=== PATIENT | female | born 1950 | race Caucasian/White ===

== ENCOUNTER 2021-06-11 11:42 | Inpatient (IN) ==
--- NOTE | 2021-06-11 11:50 | Emergency Department Note ---
Impression & Plan CVA (cerebral vascular accident), Right arm weakness, Expressive aphasia ED Provider Note NAME: MOHINI AMEZCUA AGE: 71 SEX: F : 1950 ARRIVES VIA: Ambulance INFORMANT: Patient ED PROVIDER(S): Jarad Alvarez DO CHIEF COMPLAINT: Weakness of the right upper extremity HPI: Patient is a 71-year-old female who just had her right knee replaced yesterday who presents to the ER after going to bed last night around 2100. She had her right knee replaced by Dr. Gooden yesterday and underwent anesthesia. She was acting fine last night per family. She woke up this morning was having trouble getting her words out. She also notes weakness with her right upper e xtremity with grasp movement of the fingers in flexion extension. She denies any headache or change in vision. No chest pain or shortness of breath. No nausea vomiting or diarrhea. She notes she has trouble moving her right leg but it secondary to the surgery. ROS: See above HPI for pertinent positives & negatives. A total of 10 systems reviewed and were otherwise negative. PAST MEDICAL HISTORY:See Below PAST SURGICAL HISTORY:See Below FAMILY HISTORY:See Below SOCIAL HISTORY:See Below HOME MEDICATIONS:See Below ALLERGIES:See Below VITALS:See Below PHYSICAL EXAMINATION: GENERAL: Sitting up in bed, alert, well appearing, well nourished, no distress, non-toxic EYE EXAM: normal conjunctiva. PERRL and EOM's intact. OROPHARYNX: no exudate, no erythema, lips, buccal mucosa, and tongue normal and mucous membranes are moist NECK: supple, no nuchal rigidity, no adenopathy, non-tender LUNGS: Clear to auscultation. Normal chest wall mechanics HEART: no murmurs, S1 normal and S2 normal ABDOMEN: abdomen soft, non-tender, normo-active bowel sounds, no masses, no rebound or guarding. UPPER EXTREMITIES: upper extremities are grossly normal. LOWER EXTREMITIES: No pitting edema. NEURO EXAM: Normal sensorium, cranial nerves II-XII intact, normal speech, 4 L5 weakness with the right upper extremity with flexion extension as well as grasp. Left upper extremity is 5 out of 5., No weakness in left lower extremity. No significant movement of right lower extremity with recent surgery. Able to wiggle toes. + drift on the right. Difficult to perform [id number] with the right. Gross sensation intact. MEDICAL DECISION MAKING: Patient is a 71-year-old female that presents the ER status post right knee replacement yesterday. She went to bed normally last night and when she woke up this morning around 530 she was having expressive aphasia and trouble moving her right upper extremity. She was eventually brought into the ER for further evaluation. She has a right upper extremity deficit. Expressive aphasia has improved significantly. Stroke alert was not called as last known well was last night around 2100. IV was established blood work was obtained. Labs show mild leukocytosis 13. No significant anemia. INR was unremarkable. BMP with slig htly elevated chloride. LFTs bilirubin troponin was unremarkable. Covid was negative. CT angio of the head and neck as well as Noncon of the head were negative. Patient was updated bedside. Discussed with the hospitalist admitted for further work-up of her likely stroke. Triage Nursing notes reviewed. Limited review of prior medical records performed Vital Signs: reviewed and remarkable for no significant abnormalities Differential diagnosis: Differential Diagnosis includes but is not limited to ischemic Stroke, hemorrhagic stroke, bells palsy, mass, neoplasm, migraine headache, seizure, subarachnoid hemorrhage, TIA, and transient global amnesia. ER treatment provided: See below Diagnostics interpreted by me: ECG: Sinus rhythm rate of 66 Left bundle branch block T wave inversion in the high lateral leads QTC 469 Cardiac Monitoring: An order was placed for continuous cardiac monitoring. The monitor shows a rate of 62 with sinus rhythm. Laboratory studies: As stated above and show below. Imaging studies: CT angio of the head and neck were negative CT of the head was negative Consultation(s): Patient was evaluated by hospitalist for further evaluation Procedures: none Critical Care: None Past Med/Surg History Medical History Anxiety Asthma Stable- rare albuterol inhaler use Bipolar disorder Depression Diabetes mellitus, type 2 diet controlled GERD (gastroesophageal reflux disease) Well controlled and stable History of anesthesia reaction Pt had one episode after three hour surgery in 2017- patient reports she had trouble waking up after her surgery, states she became violent and upset, hallucinated while waking up. Began to calm down once she heard her daughter's voice. History of COVID-19 12/2020 - fully recovered Hypothyroidism IBS (irritable bowel syndrome) Intermittent flares - takes Amitriptyline and Protonix for GI pain control Left bundle branch block Chronic Osteopenia Spinal stenosis Syncope Patient reports she "passed out" vs fell asleep- for about 2 hours on 05/14/21 and was treated at [facility]. Pt states she was sitting in chair and the clock said 3pm- next time she looked it was 5pm. Dx with "altered consciousness"- negative work up- feels patient possibly fell asleep Surgical History History of arthroscopy bl knees History of cholecystectomy History of colonoscopy History of hernia surgery WITH MESH History of hysterectomy Status post gastric banding surgery AND REMOVAL (POST OP BLEEDING/HX BLOOD TRANSFUSION WITH REMOVAL) Family History Family/Other No problems noted. Mother Colon cancer Dementia Father , at age 79 from mesothelioma. Mesothelioma Sister No problems noted. Sister No problems noted. Son No problems noted. Daughter No problems noted. 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 Beliefs That Will Affect Care: None marital status: Current Living Situation: Alone Current Living Situation Comment: staying w/ son until apartment becomes available current occupational status: retired Feels Safe at Home: Yes Childhood Exposure to Second-Hand Smoke: Yes Dental Care, Regularly: Yes Physical Activity Frequency: Daily Seatbelt Use: always Sunscreen Use: No Assistive Devices: Denture - Upper, Glasses and Walker Allergies Allergies Allergy/AdvReac Type Severity Reaction Status Date / Time latex Allergy Unknown Rash Verified 06/11/21 13:48 Penicillins Allergy Unknown PT DOES Verified 06/11/21 13:48 NOT REMEMBER, REACTION WAS TEENAGER Sulfa (Sulfonamide Allergy Unknown RASH Verified 06/11/21 13:48 Antibiotics) morphine AdvReac Unknown Anxiety Verified 06/11/21 13:48 Home Meds Home Medications Medication Instructions Recorded Confirmed topiramate 100 mg tablet 100 mg PO BID 07/13/19 06/11/21 buspirone 5 mg tablet 5 mg PO BID tab 12/12/19 06/11/21 amitriptyline 25 mg tablet 25 mg PO HS 05/14/21 06/11/21 ibuprofen 200 mg tablet (Advil) 200 mg PO Q6H PRN 06/11/21 06/11/21 Previous Rx's Medication Instructions Recorded pantoprazole 40 mg tablet,delayed 40 mg PO QAM #90 tab 02/01/21 release levothyroxine 125 mcg tablet 125 mcg PO QAM #90 tab 03/18/21 tramadol 50 mg tablet 50 mg PO Q8H PRN #30 tab 04/18/21 blood sugar diagnostic ([employer] #100 ea 05/18/21 Ultra Test) blood-glucose meter ([employer] #1 ea 05/18/21 Ultra2 Meter) lancets 33 gauge ([employer] Delica #100 ea 05/18/21 Lancets) ondansetron HCl 4 mg tablet 4 mg PO Q8H PRN #10 tab 06/09/21 (Zofran) oxycodone-acetaminophen 5 mg-325 1 tab PO Q6H PRN #30 tab 06/09/21 mg tablet (Percocet) Results & Data (ED) Vital Signs Vital Signs - 24 hr 06/11/21 12:07 06/11/21 12:10 Temperature 36.8 C Temperature Source Oral Pulse Rate 67 70 Pulse Rate from SpO2 Sensor 70 Pulse Rhythm Regular Pulse Strength Normal Respiratory Rate 18 13 Respiratory Effort / Characteristics Non-Labored Spontaneous Respiratory Depth Normal Blood Pressure 130/78 130/78 Blood Pressure Mean 95 95 Blood Pressure Position Lying Pulse Oximetry 98 99 Oxygen Delivery Method Room Air Sepsis Recent Fever Within 48 Hours No Sepsis New/Unexplained Change in Mental Status N/A Sepsis Action Taken by Nursing No Action Required Laboratory Data Result diagrams: 06/11/21 11:25 06/11/21 11:25 Lab Results 06/11/21 06/11/21 06/11/21 Range/Units 11:25 11:25 11:25 WBC 13.38 H (4.8-10.8) K/uL RBC 4.41 (4.2-5.4) M/uL Hgb 13.5 (12.0-16.0) g/dL Hct 40.8 (37-47) % MCV 92.5 (80-100) fL MCH 30.6 (25-34) pg MCHC 33.1 (32-36) g/dL RDW Std Deviation 49.7 H (36.4-46.3) fL RDW Coeff of Ese 14.7 H (11.5-14.5) % Plt Count 214 (130-400) K/uL MPV 10.8 H (7.4-10.4) fL Immature Gran % (Auto) 0.4 % Neut % (Auto) 75.7 % Lymph % (Auto) 12.0 % [place] % (Auto) 11.3 % Eos % (Auto) 0.5 % Baso % (Auto) 0.1 % Neut # (Auto) 10.14 H (1.4-6.5) K/uL Lymph # (Auto) 1.60 (1.2-3.4) K/uL [place] # (Auto) 1.51 H (0.11-0.59) K/uL Eos # (Auto) 0.07 (0-0.5) K/uL Baso # (Auto) 0.01 (0-0.2) K/uL Immature Gran # (Auto) 0.05 H (0.00-0.02) K/uL PT 9.9 (9.0-12.0) Seconds INR 1.0 (0.9-1.1) APTT 25.4 (21.0-31.0) Seconds PTT Ratio 1.0 Sodium 142 (136-145) mmol/L Potassium 3.7 (3.5-5.1) mmol/L Chloride 111 H (98-107) mmol/L Carbon Dioxide 25 (21-32) mmol/L Anion Gap 6.0 (3-11) BUN 31 H (7-18) mg/dl Creatinine 1.21 H (0.6-1.2) mg/dl Est Cr Clr Drug Dosing 43.4 ml/min Est GFR ( Amer) 51.8 ml/min Est GFR (Non-Af Amer) 44.7 ml/min BUN/Creatinine Ratio 25.7 H (10-20) Glucose 86 (70-99) mg/dl Calcium 9.0 (8.5-10.1) mg/dl Magnesium 2.6 H (1.8-2.4) mg/dl Total Bilirubin 0.5 (0.2-1) mg/dl AST 21 (15-37) U/L ALT 24 (12-78) U/L Alkaline Phosphatase 76 (45-117) U/L Troponin I < 0.015 (0-0.045) ng/ml Total Protein 7.1 (6.4-8.2) gm/dl Albumin 3.2 L (3.4-5.0) gm/dl Globulin 3.9 (2.5-4.0) gm/dl Albumin/Globulin Ratio 0.8 L (0.9-2) COVID-19 Eval Order SARS-CoV-2 (PCR) (Negative) Blood Type Antibody Screen 06/11/21 06/11/21 06/11/21 Range/Units 12:17 13:20 13:20 WBC (4.8-10.8) K/uL RBC (4.2-5.4) M/uL Hgb (12.0-16.0) g/dL Hct (37-47) % MCV (80-100) fL MCH (25-34) pg MCHC (32-36) g/dL RDW Std Deviation (36.4-46.3) fL RDW Coeff of Ese (11.5-14.5) % Plt Count (130-400) K/uL MPV (7.4-10.4) fL Immature Gran % (Auto) % Neut % (Auto) % Lymph % (Auto) % [place] % (Auto) % Eos % (Auto) % Baso % (Auto) % Neut # (Auto) (1.4-6.5) K/uL Lymph # (Auto) (1.2-3.4) K/uL [place] # (Auto) (0.11-0.59) K/uL Eos # (Auto) (0-0.5) K/uL Baso # (Auto) (0-0.2) K/uL Immature Gran # (Auto) (0.00-0.02) K/uL PT (9.0-12.0) Seconds INR (0.9-1.1) APTT (21.0-31.0) Seconds PTT Ratio Sodium (136-145) mmol/L Potassium (3.5-5.1) mmol/L Chloride (98-107) mmol/L Carbon Dioxide (21-32) mmol/L Anion Gap (3-11) BUN (7-18) mg/dl Creatinine (0.6-1.2) mg/dl Est Cr Clr Drug Dosing ml/min Est GFR ( Amer) ml/min Est GFR (Non-Af Amer) ml/min BUN/Creatinine Ratio (10-20) Glucose (70-99) mg/dl Calcium (8.5-10.1) mg/dl Magnesium (1.8-2.4) mg/dl Total Bilirubin (0.2-1) mg/dl AST (15-37) U/L ALT (12-78) U/L Alkaline Phosphatase (45-117) U/L Troponin I (0-0.045) ng/ml Total Protein (6.4-8.2) gm/dl Albumin (3.4-5.0) gm/dl Globulin (2.5-4.0) gm/dl Albumin/Globulin Ratio (0.9-2) COVID-19 Eval Order Covid19 at [facility] SARS-CoV-2 (PCR) NEGATIVE (Negative) Blood Type O Positive Antibody Screen NEGATIVE Administered Medications Lactated Ringer's (Lr) 1,000 mls @ 80 mls/hr IV .[id number] IONA Stop: 06/12/21 15:14 Last Admin: 06/11/21 16:58 Dose: 80 mls/hr Documented by: [id number] Infusion: 06/11/21 16:58 Dose: 80 mls/hr Documented by: [id number] Admin: 06/11/21 16:56 Dose: 80 mls/hr Documented by: [id number] Discontinued Medications Ioversol (Optiray 320 125ml) 120 ml IV ONCE ONE Stop: 06/11/21 11:53 Last Admin: 06/11/21 11:52 Dose: 120 ml Documented by: [id number] Imaging Data Radiologist's Impression: Chest X-Ray 06/11/21 11:44 SINGLE VIEW CHEST CLINICAL HISTORY: Strokelike symptoms. FINDINGS: An AP, portable, upright chest radiograph is compared to study dated 05/18/2021 and correlated with chest CT dated 06/09/2021. The examination is degraded by portable technique and patient rotation. The heart is enlarged. The pulmonary vasculature is noncongested. Findings of chronic interstitial lung disease are similar to the recent chest CT. There is no evidence of superimposed airspace consolidation or large pleural effusion. No pneumothorax is seen. The skeletal structures are osteopenic. The bony thorax is grossly intact. Cholecystectomy clips are noted in the right upper quadrant. IMPRESSION: 1. No acute cardiopulmonary abnormality. 2. Cardiomegaly with changes of chronic interstitial lung disease as above. ACT 112: Negative or not required by law. Electronically signed by: Jose Maria Shaw M.D. 06/11/2021 12:[address] 06/11/21 11:[address] OF THE BRAIN; CT ANGIOGRAM OF THE BRAIN; CT ANGIOGRAM OF THE NECK CLINICAL HISTORY: Strokelike symptoms. COMPARISON STUDY: CT of the brain dated 05/14/2021. TECHNIQUE: Unenhanced axial CT scan of the brain is performed. Subsequently, following the IV administration of 120 of Optiray 320, CT angiogram of the head and neck was performed from the aortic arch to the vertex. Images are reviewed in the axial, sagittal, and coronal planes. 3-D MIPS images are created and assessed. IV contrast was administered without complication. All measurements were calculated based on NASCET criteria. A dose lowering technique was utilized adhering to the principles of ALARA. CT DOSE: 1166.81 mGy.cm FINDINGS: Brain parenchyma: There is age-related involutional change noting mild subcortical and periventricular microangiopathic disease. There is no hemorrhage, mass effect, or evidence of acute territorial ischemia by CT criteria. There is no evidence of enhancing mass lesion on the angiogram phase images. The ventricles, sulci, and cisterns are prominent secondary to involutional change. Cabezas-white matter differentiation is preserved. No extra- axial fluid collection is seen. Thoracic aorta: There is atherosclerotic calcification of the thoracic aorta. Visualized portions of the thoracic aorta are normal in caliber. The aortic arch demonstrates standard 3-vessel anatomy. Right carotid arterial system: The right common carotid artery is widely patent, as are the right internal and external carotid arteries. Calcified plaque is noted in the carotid bulb. Left carotid arterial system: The left common carotid artery is widely patent, as are the left internal and external carotid arteries. Calcified plaque is noted in the carotid bulb. Vertebral arteries: The vertebral arteries are widely patent bilaterally noting a right-sided dominance. Subclavian arteries: Widely patent bilaterally. Intracranial vasculature: There is mild atherosclerotic calcification of the cavernous carotid arteries. The internal carotid arteries are patent at the skull base, as are the anterior and middle cerebral arteries bilaterally. The vertebrobasilar system and posterior cerebral arteries are widely patent. The right vertebral artery is dominant. The basilar artery is diminutive and there are large bilateral posterior communicating arteries. There is origin of the left posterior cerebral artery. There is no aneurysm, high-grade stenosis, or focal vessel cut off seen throughout the intracranial circulation. Jugular veins: Patent bilaterally. Dural sinuses: Patent. Lung apices: Partially visualized upper lobe lung parenchyma appears clear. Soft tissues: The visualized pharyngeal soft tissues are normal in appearance no ting angiographic phase technique. The oropharyngeal airway appears widely patent. The thyroid gland is atrophic and heterogeneous. The salivary glands are normal in appearance. No cervical lymphadenopathy is seen. Skeletal structures: The skeletal structures are osteopenic. The calvarium appears intact. The cervical spine is maintained noting multilevel spondylosis. No lytic or blastic lesion is seen. Orbits: The bony orbits are intact. Orbital contents are normal as visualized. Sinuses and mastoids: The paranasal sinuses are clear. The mastoid air cells are well pneumatized. IMPRESSION: 1. There is no hemorrhage, mass effect, or evidence of acute territorial ischemia by CT criteria. 2. Unremarkable CT angiogram of the brain. 3. Unremarkable CT angiogram of the neck. ACT 112: Negative or not required by law. Electronically signed by: Jose Maria Shaw M.D. 06/11/2021 12:19 PM Head CTA 06/11/21 11:[address] OF THE BRAIN; CT ANGIOGRAM OF THE BRAIN; CT ANGIOGRAM OF THE NECK CLINICAL HISTORY: Strokelike symptoms. COMPARISON STUDY: CT of the brain dated 05/14/2021. TECHNIQUE: Unenhanced axial CT scan of the brain is performed. Subsequently, following the IV administration of 120 of Optiray 320, CT angiogram of the head and neck was performed from the aortic arch to the vertex. Images are reviewed in the axial, sagittal, and coronal planes. 3-D MIPS images are created and assessed. IV contrast was administered without complication. All measurements were calculated based on NASCET criteria. A dose lowering technique was utilized adhering to the principles of ALARA. CT DOSE: 1166.81 mGy.cm FINDINGS: Brain parenchyma: There is age-related involutional change noting mild subcortical and periventricular microangiopathic disease. There is no hemorrhage , mass effect, or evidence of acute territorial ischemia by CT criteria. There is no evidence of enhancing mass lesion on the angiogram phase images. The ventricles, sulci, and cisterns are prominent secondary to involutional change. Cabezas-white matter differentiation is preserved. No extra-axial fluid collection is seen. Thoracic aorta: There is atherosclerotic calcification of the thoracic aorta. Visualized portions of the thoracic aorta are normal in caliber. The aortic arch demonstrates standard 3-vessel anatomy. Right carotid arterial system: The right common carotid artery is widely patent, as are the right internal and external carotid arteries. Calcified plaque is noted in the carotid bulb. Left carotid arterial system: The left common carotid artery is widely patent, as are the left internal and external carotid arteries. Calcified plaque is noted in the carotid bulb. Vertebral arteries: The vertebral arteries are widely patent bilaterally noting a right-sided dominance. Subclavian arteries: Widely patent bilaterally. Intracranial vasculature: There is mild atherosclerotic calcification of the cavernous carotid arteries. The internal carotid arteries are patent at the skull base, as are the anterior and middle cerebral arteries bilaterally. The vertebrobasilar system and posterior cerebral arteries are widely patent. The right vertebral artery is dominant. The basilar artery is diminutive and there are large bilateral posterior communicating arteries. There is origin of the left posterior cerebral artery. There is no aneurysm, high-grade stenosis, or focal vessel cut off seen throughout the intracranial circulation. Jugular veins: Patent bilaterally. Dural sinuses: Patent. Lung apices: Partially visualized upper lobe lung parenchyma appears clear. Soft tissues: The visualized pharyngeal soft tissues are normal in appearance noting angiographic phase technique. The oropharyngeal airway appears widely patent. The thyroid gland is atrophic and heterogeneous. The salivary glands are normal in appearance. No cervical lymphadenopathy is seen. Skeletal structures: The skeletal structures are osteopenic. The calvarium appears intact. The cervical spine is maintained noting multilevel spondylosis. No lytic or blastic lesion is seen. Orbits: The bony orbits are intact. Orbital contents are normal as visualized. Sinuses and mastoids: The paranasal sinuses are clear. The mastoid air cells are well pneumatized. IMPRESSION: 1. There is no hemorrhage, mass effect, or evidence of acute territorial ischemia by CT criteria. 2. Unremarkable CT angiogram of the brain. 3. Unremarkable CT angiogram of the neck. ACT 112: Negative or not required by law. Electronically signed by: Jose Maria Shaw M.D. 06/11/2021 12:19 PM Neck CTA 06/11/21 11:[address] OF THE BRAIN; CT ANGIOGRAM OF THE BRAIN; CT ANGIOGRAM OF THE NECK CLINICAL HISTORY: Strokelike symptoms. COMPARISON STUDY: CT of the brain dated 05/14/2021. TECHNIQUE: Unenhanced axial CT scan of the brain is performed. Subsequently, following the IV administration of 120 of Optiray 320, CT angiogram of the head and neck was performed from the aortic arch to the vertex. Images are reviewed in the axial, sagittal, and coronal planes. 3-D MIPS images are created and assessed. IV contrast was administered without complication. All measurements were calculated based on NASCET criteria. A dose lowering technique was utilized adhering to the principles of ALARA. CT DOSE: 1166.81 mGy.cm FINDINGS: Brain parenchyma: There is age-related involutional change noting mild subcortical and periventricular microangiopathic disease. There is no hemorrhage, mass effect, or evidence of acute territorial ischemia by CT crite hector. There is no evidence of enhancing mass lesion on the angiogram phase images. The ventricles, sulci, and cisterns are prominent secondary to involutional change. Cabezas-white matter differentiation is preserved. No extra- axial fluid collection is seen. Thoracic aorta: There is atherosclerotic calcification of the thoracic aorta. Visualized portions of the thoracic aorta are normal in caliber. The aortic arch demonstrates standard 3-vessel anatomy. Right carotid arterial system: The right common carotid artery is widely patent, as are the right internal and external carotid arteries. Calcified plaque is noted in the carotid bulb. Left carotid arterial system: The left common carotid artery is widely patent, as are the left internal and external carotid arteries. Calcified plaque is noted in the carotid bulb. Vertebral arteries: The vertebral arteries are widely patent bilaterally noting a right-sided dominance. Subclavian arteries: Widely patent bilaterally. Intracranial vasculature: There is mild atherosclerotic calcification of the cavernous carotid arteries. The internal carotid arteries are patent at the skull base, as are the anterior and middle cerebral arteries bilaterally. The vertebrobasilar system and posterior cerebral arteries are widely patent. The right vertebral artery is dominant. The basilar artery is diminutive and there are large bilateral posterior communicating arteries. There is origin of the left posterior cerebral artery. There is no aneurysm, high-grade stenosis, or focal vessel cut off seen throughout the intracranial circulation. Jugular veins: Patent bilaterally. Dural sinuses: Patent. Lung apices: Partially visualized upper lobe lung parenchyma appears clear. Soft tissues: The visualized pharyngeal soft tissues are normal in appearance noting angiographic phase technique. The oropharyngeal airway appears widely patent. The thyroid gland is atrophic and heterogeneous. The salivary glands are normal in appearance. No cervical lymphadenopathy is seen. Skeletal structures: The skeletal structures are osteopenic. The calvarium appears intact. The cervical spine is maintained noting multilevel spondylosis. No lytic or blastic lesion is seen. Orbits: The bony orbits are intact. Orbital contents are normal as visualized. Sinuses and mastoids: The paranasal sinuses are clear. The mastoid air cells are well pneumatized. IMPRESSION: 1. There is no hemorrhage, mass effect, or evidence of acute territorial ischemia by CT criteria. 2. Unremarkable CT angiogram of the brain. 3. Unremarkable CT angiogram of the neck. ACT 112: Negative or not required by law. Electronically signed by: Jose Maria Shaw M.D. 06/11/2021 12:19 PM Discharge Plan Visit Data Chief Complaint: Stroke/CVA Symptoms ED Provider: Jarad Alvarez Discharge Problem: CVA (cerebral vascular accident), Right arm weakness, Expressive aphasia Patient Disposition: Home - Self-Care Discharge Instructions Interventions: ED Discharge Assessment Last Done: 06/11/21 15:22 Discharge Problem: CVA (cerebral vascular accident) Qualifiers: CVA mechanism: unspecified Qualified Code(s): I63.9 - Cerebral infarction, unspecified
[2021-06-11] MEDS ORDERED: OPTIRAY 320 125ml IV ONE (11:52)
[2021-06-11 12:06] LABS: Basophils # (auto) 0.01 K/uL (0-0.2); Basophils % (auto) 0.1 %; Eosinophils # (auto) 0.07 K/uL (0-0.5); Eosinophils % (auto) 0.5 %; Hematocrit (blood only) 40.8 % (37-47); Hemoglobin 13.5 g/dL (12.0-16.0); Immature Granulocytes # (auto) 0.05 K/uL (0.00-0.02); Immature Granulocytes % (auto) 0.4 %; Mean Corpuscular Hemoglobin 30.6 pg (25-34); Mean Corpuscular Hgb Conc 33.1 g/dL (32-36); Mean Corpuscular Volume 92.5 fL (80-100); Mean Platelet Volume 10.8 fL (7.4-10.4); Monocytes # (auto) 1.51 K/uL (0.11-0.59); Monocytes % (auto) 11.3 %; Neutrophils # (auto) 10.14 K/uL (1.4-6.5); Neutrophils % (auto) 75.7 %; Platelet Count 214 K/uL (130-400); RDW Coefficient of Variation 14.7 % (11.5-14.5); RDW Standard Deviation 49.7 fL (36.4-46.3); Red Blood Count 4.41 M/uL (4.2-5.4); White Blood Count 13.38 K/uL (4.8-10.8)
[2021-06-11 12:17] LABS: Partial Thromboplastin Time 25.4 Seconds (21.0-31.0); Prothrombin Time 9.9 Seconds (9.0-12.0)
--- NOTE | 2021-06-11 12:21 | CT Scan Report ---
UNENHANCED CT OF THE BRAIN; CT ANGIOGRAM OF THE BRAIN; CT ANGIOGRAM OF THE NECK CLINICAL HISTORY: Strokelike symptoms. COMPARISON STUDY: CT of the brain dated 05/14/2021. TECHNIQUE: Unenhanced axial CT scan of the brain is performed. Subsequently, following the IV adminis tration of 120 of [address] 320, CT angiogram of the head and neck was performed from the aortic arch t o the vertex. Images are reviewed in the axial, sagittal, and coronal planes. 3-D MIPS images are cre ated and assessed. IV contrast was administered without complication. All measurements were calculate d based on NASCET criteria. A dose lowering technique was utilized adhering to the principles of ALA RA. CT DOSE: 1166.81 mGy.cm FINDINGS: Brain parenchyma: There is age-related involutional change noting mild subcortical and periventricula r microangiopathic disease. There is no hemorrhage, mass effect, or evidence of acute territorial isc hemia by CT criteria. There is no evidence of enhancing mass lesion on the angiogram phase images. Th e ventricles, sulci, and cisterns are prominent secondary to involutional change. Cabezas-white matter d ifferentiation is preserved. No extra-axial fluid collection is seen. Thoracic aorta: There is atherosclerotic calcification of the thoracic aorta. Visualized portions of the thoracic aorta are normal in caliber. The aortic arch demonstrates standard 3-vessel anatomy. Right carotid arterial system: The right common carotid artery is widely patent, as are the right int ernal and external carotid arteries. Calcified plaque is noted in the carotid bulb. Left carotid arterial system: The left common carotid artery is widely patent, as are the left internal combustion engine assembler al and external carotid arteries. Calcified plaque is noted in the carotid bulb. Vertebral arteries: The vertebral arteries are widely patent bilaterally noting a right-sided dominan ce. Subclavian arteries: Widely patent bilaterally. Intracranial vasculature: There is mild atherosclerotic calcification of the cavernous carotid arteri es. The internal carotid arteries are patent at the skull base, as are the anterior and middle cerebr al arteries bilaterally. The vertebrobasilar system and posterior cerebral arteries are widely patent . The right vertebral artery is dominant. The basilar artery is diminutive and there are large bilate ral posterior communicating arteries. There is origin of the left posterior cerebral artery. Th ere is no aneurysm, high-grade stenosis, or focal vessel cut off seen throughout the intracranial cir culation. Jugular veins: Patent bilaterally. Dural sinuses: Patent. Lung apices: Partially visualized upper lobe lung parenchyma appears clear. Soft tissues: The visualized pharyngeal soft tissues are normal in appearance noting angiographic pha se technique. The oropharyngeal airway appears widely patent. The thyroid gland is atrophic and heter ogeneous. The salivary glands are normal in appearance. No cervical lymphadenopathy is seen. Skeletal structures: The skeletal structures are osteopenic. The calvarium appears intact. The cervic al spine is maintained noting multilevel spondylosis. No lytic or blastic lesion is seen. Orbits: The bony orbits are intact. Orbital contents are normal as visualized. Sinuses and mastoids: The paranasal sinuses are clear. The mastoid air cells are well pneumatized. IMPRESSION: 1. There is no hemorrhage, mass effect, or evidence of acute territorial ischemia by CT criteria. 2. Unremarkable CT angiogram of the brain. 3. Unremarkable CT angiogram of the neck. ACT 112: Negative or not required by law. Electronically signed by: Jose Maria Shaw M.D. 06/11/2021 12:19 PM
[2021-06-11 12:29] LABS: Alanine Aminotransferase 24 U/L (12-78); Albumin Level 3.2 gm/dl (3.4-5.0); Aspartate Aminotransferase 21 U/L (15-37); BUN Creatinine Ratio 25.7 (10-20); Blood Urea Nitrogen 31 mg/dl (7-18); Carbon Dioxide 25 mmol/L (21-32); Chloride 111 mmol/L (98-107); Creatinine Clr Calc Pharmacy 43.4 ml/min; Est GFR (African American) 51.8 ml/min; Est GFR (Non-African American) 44.7 ml/min; Glucose 86 mg/dl (70-99); Magnesium 2.6 mg/dl (1.8-2.4); Potassium 3.7 mmol/L (3.5-5.1); Sodium 142 mmol/L (136-145)
[2021-06-11 12:34] LABS: Albumin Globulin Ratio 0.8 (0.9-2); Alkaline Phosphatase 76 U/L (45-117); Bilirubin,Total 0.5 mg/dl (0.2-1); Globulin 3.9 gm/dl (2.5-4.0); Total Protein 7.1 gm/dl (6.4-8.2); Troponin I < 0.015 ng/ml (0-0.045)
--- NOTE | 2021-06-11 12:53 | XRay Report ---
SINGLE VIEW CHEST CLINICAL HISTORY: Strokelike symptoms. FINDINGS: An AP, portable, upright chest radiograph is compared to study dated 05/18/2021 and correlate d with chest CT dated 06/09/2021. The examination is degraded by portable technique and patient rotati on. The heart is enlarged. The pulmonary vasculature is noncongested. Findings of chronic interstitia l lung disease are similar to the recent chest CT. There is no evidence of superimposed airspace cons olidation or large pleural effusion. No pneumothorax is seen. The skeletal structures are osteopenic. The bony thorax is grossly intact. Cholecystectomy clips are noted in the right upper quadrant. IMPRESSION: 1. No acute cardiopulmonary abnormality. 2. Cardiomegaly with changes of chronic interstitial lung disease as above. ACT 112: Negative or not required by law. Electronically signed by: Jose Maria Shaw M.D. 06/11/2021 12:52 PM
--- NOTE | 2021-06-11 14:01 | History & Physical Report ---
Date of Service June 11, 2021 Assessment & Plan (1) Status post right knee replacement: Plan: 71 y/o F Hx DM II, bipolar, hypothyroidism, ILD, osteoarthritis. The pt had her R knee replaced one day prior. She was feeling well and discharged [facility] after surgery for home rehab. She woke up this AM with weakness in her R arm and likely her leg as well. She states she was able to ambulate the prior day and that this was more difficult today. Imaging including a CT/CTA head/neck proved negative for acute abnormalities. Labs are unremarkable. Complicating the above, she recently received steroid injections into he shoulders BL. Her distal strength is maintained in the upper extrem and we cannot fully assess lower extremity strength as she is limited in her ROM and force by pain. Additionally, she has documented lumbar stenosis which may affect her LE strength. 1) Weakness in her upper and lower ext on R - exam may be most consistent with a CVA, although as above, there are multiple confounding factors. She is admitted with a CVA protocol. We will obtain an MRI and a neuro consult. She is receiving PT/OT. 2) DM II - sliding scale 3) Hypothyroid - con Synthroid 4) Bipolar - cont amitriptyline, buspirone. topiramate Full code - Lovenox prophylaxis Total time for this admit including review of labs, meds, imaging, records - discussion with pt and ER attending - 40 min (2) Shortness of breath: (3) CVA (cerebral vascular accident): (4) Diabetes mellitus, type 2: History of Present Illness Chief Complaint: Weakness in R arm Primary Care Provider: Sherman Mayorga MD 71 y/o F Hx DM II, bipolar, hypothyroidism, ILD, osteoarthritis. The pt had her R knee replaced one day prior. She was feeling well and discharged [facility] after surgery for home rehab. She woke up this AM with weakness in her R arm and likely her leg as well. She states she was able to ambulate the prior day and that this was more difficult today. Imaging including a CT/CTA head/neck proved negative for acute abnormalities. Labs are unremarkable. Complicating the above, she recently received steroid injections into he shoulders BL. Her distal strength is maintained in the upper extrem and we cannot fully assess lower extremity strength as she is limited in her ROM and force by pain. Additionally, she has documented lumbar stenosis which may affect her LE strength. PMH: 1) Osteoarthritis 2) Bipolar 3) Obese 4) Hypothyroid 5) DM II 6) Exertional dyspnea - recent diagnosis of ILD - possibly due to asbestosis. The diagnosis is in progress. 7) GERD 8) LBBB - preop cardio exam did not demonstrate evidence of ischemia 9) Lumbar stenosis Surgical: 1) Gastric band - this was complicated by erosion and required surgical removal and then additional surgery for debris removal. 2) R TKA 06/10/21 3) Cholecystectomy 4) Hysterectomy Social: Does not drink or smoke Family: Mother is alive age 99 Father age 76 mesothelioma Allergies Allergy/AdvReac Type Severity Reaction Status Date / Time latex Allergy Unknown Rash Verified 06/11/21 13:48 Penicillins Allergy Unknown PT DOES Verified 06/11/21 13:48 NOT REMEMBER, REACTION WAS TEENAGER Sulfa (Sulfonamide Allergy Unknown RASH Verified 06/11/21 13:48 Antibiotics) morphine AdvReac Unknown Anxiety Verified 06/11/21 13:48 Home Medications Medication Instructions Recorded Confirmed Type topiramate 100 mg tablet 100 mg PO BID 07/13/19 06/11/21 History buspirone 5 mg tablet 5 mg PO BID tab 12/12/19 06/11/21 History pantoprazole 40 mg tablet,delayed 40 mg PO QAM #90 tab 02/01/21 06/11/21 Rx release levothyroxine 125 mcg tablet 125 mcg PO QAM #90 tab 03/18/21 06/11/21 Rx tramadol 50 mg tablet 50 mg PO Q8H PRN #30 tab 04/18/21 06/11/21 Rx amitriptyline 25 mg tablet 25 mg PO HS 05/14/21 06/11/21 History blood sugar diagnostic ([employer] #100 ea 05/18/21 06/03/21 Rx Ultra Test) blood-glucose meter ([employer] #1 ea 05/18/21 06/03/21 Rx Ultra2 Meter) lancets 33 gauge ([employer] #100 ea 05/18/21 06/03/21 Rx Lancets) ondansetron HCl 4 mg tablet 4 mg PO Q8H PRN #10 tab 06/09/21 06/11/21 Rx (Zofran) oxycodone-acetaminophen 5 mg-325 1 tab PO Q6H PRN #30 tab 06/09/21 06/11/21 Rx mg tablet (Percocet) ibuprofen 200 mg tablet (Advil) 200 mg PO Q6H PRN 06/11/21 06/11/21 History Past Med/Surg History Medical History Anxiety Asthma Stable- rare albuterol inhaler use Bipolar disorder Depression Diabetes mellitus, type 2 diet controlled GERD (gastroesophageal reflux disease) Well controlled and stable History of anesthesia reaction Pt had one episode after three hour surgery in 2017- patient reports she had trouble waking up after her surgery, states she became violent and upset, hallucinated while waking up. Began to calm down once she heard her daughter's voice. History of COVID-19 12/2020 - fully recovered Hypothyroidism IBS (irritable bowel syndrome) Intermittent flares - takes Amitriptyline and Protonix for GI pain control Left bundle branch block Chronic Osteopenia Spinal stenosis Syncope Patient reports she "passed out" vs fell asleep- for about 2 hours on 05/14/21 and was treated at [facility]. Pt states she was sitting in chair an d the clock said 3pm- next time she looked it was 5pm. Dx with "altered consciousness"- negative work up- feels patient possibly fell asleep Surgical History History of arthroscopy bl knees History of cholecystectomy History of colonoscopy History of hernia surgery WITH MESH History of hysterectomy Status post gastric banding surgery AND REMOVAL (POST OP BLEEDING/HX BLOOD TRANSFUSION WITH REMOVAL) Family History Family/Other No problems noted. Mother Colon cancer Dementia Father , at age 79 from mesothelioma. Mesothelioma Sister No problems noted. Sister No problems noted. Son No problems noted. Daughter No problems noted. Other Family history of diabetes mellitus in father Denies family history of Ovarian cancer Prostate cancer Myocardial infarction Breast cancer Social History Smoking Status: Never smoker packs per day: 1; Years Smoked: 8; Number of Years Since Quit: 20; Second Hand Exposure: No; Hx Alcohol Use: Yes Alcohol type: wine Hx Substance Use: No Preferred Language: [place] Communication Ability: Effective Sales Utility Representative Required: No Beliefs That Will Affect Care: None marital status: Current Living Situation: Alone Current Living Situation Comment: staying w/ son until apartment becomes available current occupational status: retired Feels Safe at Home: Yes Childhood Exposure to Second-Hand Smoke: Yes Dental Care, Regularly: Yes Physical Activity Frequency: Daily Seatbelt Use: always Sunscreen Use: No Assistive Devices: Glasses Review of Systems Review of Systems: Gen: Denies fevers, night sweats, rigors, fatigue, malaise, weight loss/gain ENT: Denies congestion, throat pain, hearing loss Eyes: Denies acute visual changes CV: Denies CP, palpitations Pulmonary: Denies SOB, cough, wheezing GI: Denies N/V, diarrhea, constipation Neuro: There is weakness in the R arm and hand Musculoskeletal: There is pain in the R knee post-p - mostly with movement Endocrine: Denies polydipsia, polyuria Skin: Denies acute rashes or ulcers Physical Exam Physical Exam: General: AAO x 3, no distress ENT: No erythema or exudates, no thrush Eyes: TEE, EOMI Head and neck: Normocephalic, atraumatic, No JVD, neck is supple. Chest/heart: Nontender, S1,2, RRR, no murmurs, no gallops Lungs: CTAB, no wheezing or crackles Abdomen: Nontender, nondistended, BS+ Neuro: AAO x 3, speech is clear. There is a clear drift on the RUE. Visual Merchandising Specialist strength remains keny than the L. Coordination is impaired. The R leg is difficult to test as she has considerable pain when attempimg a leg lift. There is subtle dista numbness and she is weaker distally than on the L. Musculoskeletal: No joint inflammation, muscle tenderness, FROM Skin: No acute rashes or ulcers Extremities: No clubbing, cyanosis, edema Results & Data Results & Data ([facility]) Vital Signs (Past 12 Hours) Vital Signs Temp Pulse Resp BP Pulse Ox 06/11/21 12:07 98.2 F 67 18 130/78 98 Code Status & VTE Plan VTE Prophylaxis Plan VTE Prophylaxis will be ordered: Yes PG Care Time/CCT Total # of Minutes Spent Total Time Spent with Patient: Total time spent is greater than 50% in coordination of care (as documented) at patient's floor/unit and/or counseling patient: Coding Level of Care Code INT OBSERVATION CARE 70M LVL 3 Diagnoses Status post right knee replacement Z96.651 Shortness of breath R06.02 CVA (cerebral vascular accident) I63.9 Diabetes mellitus, type 2 E11.9
[2021-06-11] MEDS ORDERED: GLUCAGON FOR INJ 1 MG VIAL SQ PRN (16:33)
[2021-06-11] MEDS ORDERED: ALBUTEROL HFA 8 GM INHALER INH PRN (16:33)
[2021-06-11] MEDS ORDERED: GLUCOSE 10 TABS/TUBE PO PRN (16:33)
[2021-06-11] MEDS ORDERED: DEXTROSE 50% 50 ML SYRINGE IV PRN (16:33)
[2021-06-11] MEDS ORDERED: GLUCOSE 40% GEL 15 GM TUBE PO PRN (16:33)
[2021-06-11] MEDS ORDERED: PHARMACIST DISCHARGE MED REC CONSULT PRN (16:33)
[2021-06-11] MEDS ORDERED: CARBOHYDRATES FOR HYPOGLYCEMIA PO PRN (16:33)
[2021-06-11] MEDS: LACTATED RINGER'S 1,000 ML IV SCH ×2 (16:56→16:58)
--- NOTE | 2021-06-11 18:19 | Magnetic Resonance Report ---
MRI OF THE BRAIN WITHOUT IV CONTRAST CLINICAL HISTORY: Strokelike symptoms. Right hand weakness. COMPARISON STUDY: CT of the brain dated 06/11/2021. TECHNIQUE: MRI of the brain was performed utilizing various T1 and T2-weighted sequences in the axial , sagittal, and coronal planes. IV contrast was not administered for this examination. FINDINGS: Brain parenchyma: There is an 11 mm focus of restricted diffusion identified within the left thalamus consistent with an acute to subacute lacunar infarct. No additional foci of restricted diffusion are identified. There is no hemorrhage or mass effect. There is age-related involutional change noting m inimal microangiopathic disease. Cabezas-white matter differentiation is preserved. No extra-axial fluid collection is seen. Faint mineralization is noted in the basal ganglia. The cerebellar tonsils are n ormal in configuration. Ventricles, sulci, and cisterns: Prominent secondary to involutional change. Pituitary and sella: Unremarkable. Intracranial vasculature: Normal flow voids are maintained at the skull base. Orbits: The bony orbits are grossly intact. Orbital contents are normal in appearance. Sinuses and mastoids: Clear. Calvarium: Unremarkable. Cervical cord: Partially visualized cervical spinal cord is normal in morphology and signal intensity . IMPRESSION: 1. There is an acute to subacute lacunar infarct identified in the left thalamus as above. 2. No additional foci of acute ischemia are identified. 3. There is no hemorrhage or mass effect. ACT 112: Negative or not required by law. Electronically signed by: Jose Maria Shaw M.D. 06/11/2021 6:18 PM
[2021-06-11] MEDS: INSULIN ASPART 100 UNITS/ML 3 ML PEN SC SCH ×2 (18:30→20:43)
[2021-06-11] MEDS: traMADol HCL 50 MG TABLET PO PRN (19:18)
[2021-06-11] MEDS: busPIRone 5 MG TAB PO SCH (20:06)
[2021-06-11] MEDS: TOPIRAMATE 100 MG TAB PO SCH (20:06)
[2021-06-11] MEDS: oxyCODONE/ACETAMINOPHEN 5mg/325mg TAB PO PRN (20:06)
[2021-06-11] MEDS: AMITRIPTYLINE HCL 25 MG TAB PO SCH (20:06)
[2021-06-12] MEDS: oxyCODONE/ACETAMINOPHEN 5mg/325mg TAB PO PRN ×5 (02:06→21:59)
[2021-06-12] MEDS: LEVOTHYROXINE SODIUM 125 MCG TABLET PO SCH (05:57)
[2021-06-12 06:04] LABS: Basophils # (auto) 0.02 K/uL (0-0.2); Basophils % (auto) 0.2 %; Eosinophils # (auto) 0.27 K/uL (0-0.5); Eosinophils % (auto) 3.2 %; Hematocrit (blood only) 37.5 % (37-47); Immature Granulocytes # (auto) 0.03 K/uL (0.00-0.02); Immature Granulocytes % (auto) 0.4 %; Lymphocytes # (auto) 1.93 K/uL (1.2-3.4); Lymphocytes % (auto) 22.6 %; Mean Corpuscular Hemoglobin 29.7 pg (25-34); Mean Corpuscular Volume 92.8 fL (80-100); Mean Platelet Volume 10.3 fL (7.4-10.4); Monocytes # (auto) 1.03 K/uL (0.11-0.59); Monocytes % (auto) 12.1 %; Neutrophils # (auto) 5.26 K/uL (1.4-6.5); Neutrophils % (auto) 61.5 %; Platelet Count 176 K/uL (130-400); RDW Coefficient of Variation 14.9 % (11.5-14.5); RDW Standard Deviation 50.5 fL (36.4-46.3); Red Blood Count 4.04 M/uL (4.2-5.4); White Blood Count 8.54 K/uL (4.8-10.8)
[2021-06-12 06:22] LABS: BUN Creatinine Ratio 25.3 (10-20); Calcium 8.5 mg/dl (8.5-10.1); Creatinine Clr Calc Pharmacy 54.5 ml/min; Est GFR (African American) 62.2 ml/min; Est GFR (Non-African American) 53.6 ml/min; Magnesium 2.1 mg/dl (1.8-2.4); Potassium 3.9 mmol/L (3.5-5.1)
[2021-06-12] MEDS: INSULIN ASPART 100 UNITS/ML 3 ML PEN SC SCH ×4 (07:49→20:08)
[2021-06-12] MEDS: TOPIRAMATE 100 MG TAB PO SCH ×2 (08:28→19:48)
[2021-06-12] MEDS: busPIRone 5 MG TAB PO SCH ×2 (08:28→19:48)
[2021-06-12] MEDS: PANTOprazole 40 MG TAB PO SCH (08:28)
[2021-06-12] MEDS ORDERED: ENOXAPARIN INJ 40 MG/0.4 ML SYR SQ SCH (09:00)
[2021-06-12] MEDS ORDERED: ASPIRIN 325 MG ECTAB PO SCH (09:00)
--- NOTE | 2021-06-12 10:35 | Neurology Consultation ---
Date of Consultation June 12, 2021 Assessment & Plan (1) CVA (cerebral vascular accident): Acute ischemic left thalamic stroke presenting with right hemisensory deficit, thalamic aphasia, and mild right hemiparesis. The aphasia has resolved. Motor assessment of the right lower extremity is limited in the context of her recent right total knee arthroplasty. Stroke risk factors for this patient may include either type 2 diabetes mellitus or hyperglycemia (recent hemoglobin A1c's have been normal, not on medication for diabetes), possibly mild hyperlipidemia, elevated LDL, and recent right total knee arthroplasty. Patient also informs me that she was told she may have had atrial fibrillation many years ago although there is no recent mention of this possible condition in the medical record. She does not take any anticoagulant or antiplatelet medication as an outpatient. Agree with aspirin 81 mg/day as ordered. Consider adding a statin as well. Would obtain an up-to-date echocardiogram with bubble study. Consider obtaining a lower extremity ultrasound to rule out DVT. Would obtain 30-day mobile cardiac outpatient telemetry. Current blood pressure appropriate. Patient has stable mild neurological deficits at this time. PT/OT/speech therapy. History of Present Illness Reason for Consultation: CVA Requesting Physician: Basia Mart MD Attending Physician: Basia Mart MD History of Present Illness The patient is a 71-year old female with a chief complaint of right-sided numbness and tingling with associated weakness of the right hand and difficulty with word finding. The numbness involves the right face, arm, and leg. The sy mptoms were noted upon awakening yesterday morning and had significantly improved by the time she was evaluated in the emergency department. Patient was outside of the window for administration of TPA, a stroke alert was not called. History notable for right total knee arthroplasty the day prior, on June 10, 2021. She did have a CT of the head including CT angiogram of the head and neck completed yesterday. The studies were unremarkable, no vascular lesion, no hemorrhage or acute process. A follow-up brain MRI does reveal an acute to subacute lacunar infarct within the left thalamus. I did inform the patient of her MRI results although she was not aware that she had a small stroke. She continues to complain of right sided numbness and tingling, face arm and leg as well as mild weakness of the right arm, primarily the hand with some associated clumsiness. Past medical history is notable for type 2 diabetes mellitus. She follows with cardiology as well for left bundle branch block. The patient mentions to me that she thinks she was diagnosed with a stroke or TIA in the past, probably about 10 years ago. She also recalls being told that she may have had atrial fibrillation in the past although I do not see any specific mention of atrial fibrillation in any of her recent cardiology notes. She does not take antiplatelet medications or anticoagulants as an outpatient. She is a former smoker, quit many years ago. Although she has had some elevations in blood glucose previously, recent hemoglobin A1c's have been under 6. Allergies Allergy/AdvReac Type Severity Reaction Status Date / Time latex Allergy Unknown Rash Verified 06/11/21 13:48 Penicillins Allergy Unknown PT DOES Verified 06/11/21 13:48 NOT REMEMBER, REACTION WAS TEENAGER Sulfa (Sulfonamide Allergy Unknown RASH Verified 06/11/21 13:48 Antibiotics) morphine AdvReac Unknown Anxiety Verified 06/11/21 13:48 Home Medications Medication Instructions Recorded Confirmed Type topiramate 100 mg tablet 100 mg PO BID 07/13/19 06/11/21 History buspirone 5 mg tablet 5 mg PO BID tab 12/12/19 06/11/21 History pantoprazole 40 mg tablet,delayed 40 mg PO QAM #90 tab 02/01/21 06/11/21 Rx release levothyroxine 125 mcg tablet 125 mcg PO QAM #90 tab 03/18/21 06/11/21 Rx tramadol 50 mg tablet 50 mg PO Q8H PRN #30 tab 04/18/21 06/11/21 Rx amitriptyline 25 mg tablet 25 mg PO HS 05/14/21 06/11/21 History blood sugar diagnostic ([employer] #100 ea 05/18/21 06/03/21 Rx Ultra Test) blood-glucose meter ([employer] #1 ea 05/18/21 06/03/21 Rx Ultra2 Meter) lancets 33 gauge ([employer] Delica #100 ea 05/18/21 06/03/21 Rx Lancets) ondansetron HCl 4 mg tablet 4 mg PO Q8H PRN #10 tab 06/09/21 06/11/21 Rx (Zofran) oxycodone-acetaminophen 5 mg-325 1 tab PO Q6H PRN #30 tab 06/09/21 06/11/21 Rx mg tablet (Percocet) ibuprofen 200 mg tablet (Advil) 200 mg PO Q6H PRN 06/11/21 06/11/21 History Patient History Medical History Anxiety Asthma Stable- rare albuterol inhaler use Bipolar disorder Depression Diabetes mellitus, type 2 diet controlled GERD (gastroesophageal reflux disease) Well controlled and stable History of anesthesia reaction Pt had one episode after three hour surgery in 2017- patient reports she had trouble waking up after her surgery, states she became violent and upset, hallucinated while waking up. Began to calm down once she heard her daughter's voice. History of COVID-19 12/2020 - fully recovered Hypothyroidism IBS (irritable bowel syndrome) Intermittent flares - takes Amitriptyline and Protonix for GI pain control Left bundle branch block Chronic Osteopenia Spinal stenosis Syncope Patient reports she "passed out" vs fell asleep- for about 2 hours on 05/14/21 and was treated at [facility] Emergency Room. Pt states she was sitting in chair and the clock said 3pm- next time she looked it was 5pm. Dx with "altered consciousness"- negative work up- feels patient possibly fell asleep Surgical History History of arthroscopy bl knees History of cholecystectomy History of colonoscopy History of hernia surgery WITH MESH History of hysterectomy Status post gastric banding surgery AND REMOVAL (POST OP BLEEDING/HX BLOOD TRANSFUSION WITH REMOVAL) Family History Family/Other No problems noted. Mother Colon cancer Dementia Father , at age 79 from mesothelioma. Mesothelioma Sister No problems noted. Sister No problems noted. Son No problems noted. Daughter No problems noted. Other Family history of diabetes mellitus in father Denies family history of Ovarian cancer Prostate cancer Myocardial infarction Breast cancer Social History Smoking Status: Former smoker packs per day: 1; Years Smoked: 8; Number of Years Since Quit: 20; Second Hand Exposure: No; Hx Alcohol Use: Yes Alcohol type: wine Hx Substance Use: No Preferred Language: Kyrgyz Communication Ability: Effective Strike Off Machine Operator Required: No Beliefs That Will Affect Care: None marital status: Current Living Situation: Alone Current Living Situation Comment: staying w/ son until apartment becomes available current occupational status: retired Feels Safe at Home: Yes Childhood Exposure to Second-Hand Smoke: Yes Dental Care, Regularly: Yes Physical Activity Frequency: Daily Seatbelt Use: always Sunscreen Use: No Assistive Devices: Denture - Upper, Glasses and Walker Review of Systems Constitutional: no fever and no chills Eyes: no blind spots and no diplopia Ear, Nose, Mouth, Throat: no ear pain and no hearing loss Respiratory: no cough and no dyspnea Cardiovascular: no chest pain and no palpitations Gastrointestinal: no constipation and no diarrhea/loose stools Genitourinary: no urinary urgency and no urinary incontinence Musculoskeletal: + joint pain (right knee, s/p TKA) Integumentary: no rash and no lesions Neurologic: as per Subjective / HPI Psychiatric: no behavioral changes, no depression, no abnormal sleep pattern and no anxiety Hematologic / Lymphatic: no easy bruising and no lymphadenopathy Exam (Neuro) Constitutional: well developed and well nourished; no acute distress Eyes: normal visual rubio by confrontation, PERRL, normal accommodation and EOM intact bilaterally; no fundoscopic abnormality, no nystagmus and no papilledema Cardiovascular: Vessels: normal carotid upstroke; no carotid bruit Neurologic: Oriented to:: Person, Place and Time Memory: Short Term Intact and Remote Intact Attention: Span Intact and Concentration Intact Language: Naming Objects and Repeating Phrases Speech Fluency: negative Dysa rthria Speech Aphasia: negative Aphasia Fund of Knowledge: Current Events, Past History and Vocabulary Cranial Nerves: Normal II (Visual rubio full to confrontation, visual acuity normal), III, IV, (Pupils equal round reactive to light and accommodation, eye movements normal), VII (There is no facial droop or weakness), VIII (Hearing intact), IX, X (Palate elevates to midline), XI (Shoulder shrug intact) and XII (Tongue protrudes to midline); Abnorm V (Relatively reduced right facial sensation, upper, mid, and lower aspects of the face.) Motor Strength: Hemiparesis (Mild) Laterality: Right; negative Normal Lower Extremities, Normal Upper Extremities or Pronator Drift Motor Tone: Normal Lower Extremities and Normal Upper Extremities Muscle Bulk/Involuntary Movements: No Involuntary Movements; negative Muscle Atrophy Sensation: negative Light Touch Intact, Pain/Temperature Intact, Vibration Intact or Proprioception Intact Coordination: Dysdiadochokinesia, Finger-Nose Abnormal Laterality: Right and Heel-Jolly Abnormal (Unable to assess, status post right TKA 2 days ago) Deep Tendon Reflexes: Rt Triceps: 2+, Lt Triceps: 2+, Rt Biceps: 2+, Lt Biceps: 2+, Rt Brachioradialis: 2+, Lt Brachioradialis: 2+, Lt Patellar: 2+, Rt Ankle: 1+ and Lt Ankle: 1+ Special Tests: negative Babinski Present Details: Gait cannot be tested in the context of patient's current orthopedic/neurological status. Right-sided sensory loss to all modalities, face arm and leg, seems to spare the thorax and abdomen. There is mild, primarily distal weakness of the right upper extremity, grasp strength reduced, facility and fine finger movements reduced. There is moderate dysmetria with [id number] on the right. No aphasia or dysarthria at this time. No facial droop at this time. Right patellar reflex cannot be obtained with postsurgical dressings. Results & Data ([facility]) Vital Signs (Past 12 Hours) Vital Signs Temp Pulse Pulse Resp BP BP Pulse Ox 06/12/21 07:40 67 06/12/21 07:00 36.7 C 66 16 133/82 94 06/12/21 03:47 36.7 C 72 18 143/82 H 95 06/11/21 22:56 64 06/11/21 22:27 36.6 C 62 16 121/76 95 Laboratory Results WBC 8.54, hemoglobin 12.0, hematocrit 37.5, platelet count 176, sodium 142, potassium 3.9, BUN 26, creatinine 1.04, glucose 86, calcium 8.5, magnesium 2.1, AST 21, ALT 24, troponin less than 0.015, triglycerides 100, cholesterol 190, LDL 114, VLDL 20, HDL [address] of the head, CT angiogram of the head and neck, and brain MRI have been reviewed and are as described in the history of present illness. I reviewed the images as well as the radiologist's interpretation of these tests and agree. An electrocardiogram reveals a sinus rhythm with first-degree AV block, left bundle branch block, 66 bpm. Coding Level of Care Code 54843 Initial Inpt Care Lvl 3 Diagnoses CVA (cerebral vascular accident) I63.9 CVA mechanism: unspecified (1) CVA (cerebral vascular accident) CVA mechanism: unspecified Qualified Code(s): I63.9 - Cerebral infarction, unspecified
--- NOTE | 2021-06-12 13:47 | Hospitalist Progress Note ---
Date of Service June 12, 2021 Assessment & Plan (1) CVA (cerebral vascular accident): Plan: 71 y/o F Hx DM II, bipolar, hypothyroidism, ILD, osteoarthritis. The pt had her R knee replaced one day prior. She was feeling well and discharged shortly after surgery for home rehab. She woke up on the AM of admission with weakness in her R arm and likely her right leg as well. Imaging including a CT/CTA head/neck proved negative for acute abnormalities in the ER. Labs are unremarkable. After admission, brain MRI performed which showed acute to subacute lacunar infarct in the left thalamus measuring 11 mm, faint mineralization noted in the basal ganglia, otherwise normal She has gained some strength back in the right lower extremity but right upper extremity remains somewhat weak and has a sensory deficit She reports a history of atrial fibrillation in the past but no records are available to confirm this and her family can also not confirm this other than that the patient has stated this in the past. She has never been on anticoagulation but she is agreeable to doing so. She does have a history of bleeding related to 3 stomach surgeries to correct a lap band that eroded into her stomach, but no bleeding since then. There is a possibility that this is a thromboembolic CVA. Echocardiogram shows preserved EF 55-60%, no wall motion abnormalities, septal motion consistent with bundle branch block, mild LVH, mild pulmonary hypertension, negative bubble Telemetry with sinus rhythm thus far Cholesterol is excellent, hemoglobin A1c pending -Continue aspirin 81 mg p.o. once daily now, but plan to start apixaban 5 mg p.o. twice daily given history of paroxysmal atrial fibrillation as per patient report in the setting of known acute CVA -Holding off on starting apixaban at this time due to fall and trauma to the right knee with bleeding associated on the evening of 06/12 -If bleeding from the knee resolves and blood count remained stable in the morning, would start apixaban likely tomorrow and discontinue aspirin -Start atorvastatin high intensity at 40 mg daily -PT/OT consultations appreciated-recommend rehab placement -Neurology consultation appreciated -Cardiology consulted-likely need to implant loop recorder to further evaluate for occult atrial fibrillation -Neurochecks to be continued (2) Status post right knee replacement: Plan: Status post right TKA with Dr. Gooden on 06/10 Continue pain control with oxycodone but changed to 1 tablet every 4 hours -PT/OT consulted -With fall onto right knee on the evening of 06/12 in the hospital with some bleeding from the incision but the incision remains intact, some swelling around the knee Knee x-ray without fracture on 06/12 -Continue daily dressing and Rio wrap compression, ice packs -Consult orthopedic surgery given recent fall onto the knee with bleeding and swelling -DVT prophylaxis will be Eliquis as above, but SCDs and aspirin only for now Due to swelling in the right foot, it is difficult to palpate her pulse- admitting physician ordered an arterial duplex ultrasound, however the patient refused to go and have it done due to ongoing pain in the knee so it is currently pending. She has good capillary refill to that foot so doubt that she has any kind of arterial ischemia but will go ahead and obtain the arterial Doppler when able to (3) Shortness of breath: Plan: With recent diagnosis of possible ILD Chest x-ray here with chronic interstitial changes similar to previous Follows with pulmonology and is set to have high-resolution CT scan of the chest and PFTs as an outpatient Not hypoxic no respiratory distress Continue albuterol as needed (4) Diabetes mellitus, type 2: Plan: Hemoglobin A1c is pending now but was only 5.6% 1 month ago which is in the normal range-she technically no longer has diabetes Continue Accu-Cheks, NovoLog supplemental insulin as needed She is not on any medications at home for this as it is well controlled (5) Left bundle branch block: Plan: Chronic Nuclear stress test in 2019 was without ischemia (6) IBS (irritable bowel syndrome): Plan: Continue amitriptyline (7) Hypothyroidism: Plan: TSH recently slightly elevated at 4.6 Continue home levothyroxine Follow-up with PCP (8) GERD (gastroesophageal reflux disease): Plan: Continue pantoprazole Has a history of lap band with the band eroding in the stomach resulting in several corrective surgeries and associated bleeding She reports being prone to getting ulcers -Avoid NSAIDs Okay for baby aspirin for now but planning on changing Eliquis as above (9) Bipolar disorder: Plan: Continue Topamax, buspirone Plan: Disposition-continued stay on PCU, PT/OT recommending rehab-referrals will be needed, case management is involved Full code Case discussed with her son and daughter on the phone at length Admission and Anticipated Discharge Date Admission Date: June 12, 2021 Subjective Patient reports some continued weakness in the right arm and hand, but feels her right leg is stronger. She is having significant pain in the right knee with some muscle spasms in the hamstring. She reports that at home she did somewhat have a fall where she slid to the floor slowly while her son was trying to help her. She denies chest pains or shortness of breath, no nausea or abdominal pain. She does report a history of atrial fibrillation in the , and perhaps other times through her life since then, but she does not recall the name of the phlebotomist prn she saw in [place] for this. She has never been on an anticoagulant. She is agreeable to an anticoagulant. She does have a history of GI bleeding about 4 years ago in the setting of a lap band that eroded into her stomach requiring 3 surgeries to repair. No bleeding since that time. I discussed her care with her son and daughter on the phone-they report that she frequently tells them that she has strokes in the past, and at times they do not believe that she has many medical diagnoses that she reports that she does. However, they do note that she has mentioned atrial fibrillation in the past, but have never actually seen this diagnosis and her medical records. Telemetry here with normal sinus rhythm, PVCs, some bigeminy, rates in the 70s to 80s I came back to see her a second time in the evening when she was trying to get out of her chair back to the bed by herself and she fell, unfortunately landing on her right knee with her leg under her bottom. She had blood soaking through the Rio wrap. I contacted her orthopedic surgeon who advised removing the Rio wrap and dressing for examination. Fortunately, the incision was intact. The dressing was replaced and Rio compression wrap was placed along with an ice pack. X-ray was performed which was without fracture or dislocation I discussed her case also with cardiology with regards to anticoagulation and possible placement of a loop recorder. Review of Systems Review of Systems: All systems reviewed & are unremarkable except as noted in HPI & below Feels that her top lip on the right side is swollen a bit Physical Exam Constitutional: WD/WN, vitals as above Eyes: PERRL, conjunctivae normal, anicteric sclerae EOM intact bilaterally; no anisocoria and no nystagmus ENMT: external ear and nose normal, oropharynx normal Mouth: + lip abnormality (Very mild edema of the right upper lip) Neck: trachea midline, no thyromegaly Respiratory: normal respiratory effort, lungs clear to auscultation Cardiovascular: Rate/Rhythm: regular rate and regular rhythm Heart Sounds: no murmur Extremities: + edema (Right lower extremity 1+ pitting edema) Chest (Breasts): Chest: normal inspection of chest Gastrointestinal (Abdomen): normal bowel sounds, soft, nontender, no hepatosplenomegaly Musculoskeletal: Extremities: + extremities abnormal to inspection (Right knee modesta in place, scant blood oozing inferior incision), no cyanosis and no clubbing With moderate swelling about the knee and some bruising around the incision Skin: no rashes, warm and dry Neurologic: PERRL, EOMI, accommodation nl, no face palsy, no dysarthria CN's II-XI intact bilaterally (Except decreased sensation to light touch in right V1-V2), + focal motor deficit and awake Speech / Cognition: normal speech and no expressive aphasia Motor/Sensory: + sensory deficit (Right upper/lower extremities decreased light touch); no tremor 4/5 strength throughout right upper extremity, right lower extremity with significant pain with motion limiting the ability to test strength but does have 5 out of 5 ankle dorsiflexion and plantar flexion as well as great toe dorsiflexion plantarfle xion Otherwise 5/5 in the left upper and left lower extremities Psychiatric: Orientation: alert, oriented x 3 and cooperative Speech: normal rate/rhythm/volume of speech Affect: + irritable affect Lymphatic: no lymphedema Results & Data Results & Data ([facility]) Vital Signs (Past 12 Hours) Vital Signs Temp Pulse Pulse Pulse Resp BP BP 06/12/21 11:34 36.4 C L 72 18 145/82 H 06/12/21 07:40 67 06/12/21 07:00 36.7 C 66 16 133/82 06/12/21 03:47 36.7 C 72 18 143/82 H Pulse Ox 06/12/21 11:34 97 06/12/21 07:40 06/12/21 07:00 94 06/12/21 03:47 95 Laboratory Results 06/12/21 06/12/21 06/12/21 Range/Units 20:05 16:15 11:01 WBC (4.8-10.8) K/uL RBC (4.2-5.4) M/uL Hgb (12.0-16.0) g/dL Hct (37-47) % MCV (80-100) fL MCH (25-34) pg MCHC (32-36) g/dL RDW Std Deviation (36.4-46.3) fL RDW Coeff of Ese (11.5-14.5) % Plt Count (130-400) K/uL MPV (7.4-10.4) fL Immature Gran % (Auto) % Neut % (Auto) % Lymph % (Auto) % [place] % (Auto) % Eos % (Auto) % Baso % (Auto) % Neut # (Auto) (1.4-6.5) K/uL Lymph # (Auto) (1.2-3.4) K/uL [place] # (Auto) (0.11-0.59) K/uL Eos # (Auto) (0-0.5) K/uL Baso # (Auto) (0-0.2) K/uL Immature Gran # (Auto) (0.00-0.02) K/uL Sodium (136-145) mmol/L Potassium (3.5-5.1) mmol/L Chloride (98-107) mmol/L Carbon Dioxide (21-32) mmol/L Anion Gap (3-11) BUN (7-18) mg/dl Creatinine (0.6-1.2) mg/dl Est Cr Clr Drug Dosing ml/min Est GFR ( Amer) ml/min Est GFR (Non-Af Amer) ml/min BUN/Creatinine Ratio (10-20) Glucose (70-99) mg/dl POC Glucose 102 H 86 77 (70-99) mg/dl Estimat Average Glucose Hemoglobin A1c Calcium (8.5-10.1) mg/dl Magnesium (1.8-2.4) mg/dl Triglycerides (0-150) mg/dl Cholesterol (0-200) mg/dl LDL Cholesterol, Calc mg/dl VLDL Cholesterol, Calc mg/dl HDL Cholesterol mg/dl Cholesterol/HDL Ratio 06/12/21 06/12/21 06/12/21 Range/Units 07:04 05:34 05:34 WBC (4.8-10.8) K/uL RBC (4.2-5.4) M/uL Hgb (12.0-16.0) g/dL Hct (37-47) % MCV (80-100) fL MCH (25-34) pg MCHC (32-36) g/dL RDW Std Deviation (36.4-46.3) fL RDW Coeff of Ese (11.5-14.5) % Plt Count (130-400) K/uL MPV (7.4-10.4) fL Immature Gran % (Auto) % Neut % (Auto) % Lymph % (Auto) % [place] % (Auto) % Eos % (Auto) % Baso % (Auto) % Neut # (Auto) (1.4-6.5) K/uL Lymph # (Auto) (1.2-3.4) K/uL [place] # (Auto) (0.11-0.59) K/uL Eos # (Auto) (0-0.5) K/uL Baso # (Auto) (0-0.2) K/uL Immature Gran # (Auto) (0.00-0.02) K/uL Sodium 142 (136-145) mmol/L Potassium 3.9 (3.5-5.1) mmol/L Chloride 111 H (98-107) mmol/L Carbon Dioxide 25 (21-32) mmol/L Anion Gap 5.0 (3-11) BUN 26 H (7-18) mg/dl Creatinine 1.04 (0.6-1.2) mg/dl Est Cr Clr Drug Dosing 54.5 ml/min Est GFR ( Amer) 62.2 ml/min Est GFR (Non-Af Amer) 53.6 ml/min BUN/Creatinine Ratio 25.3 H (10-20) Glucose 86 (70-99) mg/dl POC Glucose 95 (70-99) mg/dl Estimat Average Glucose Pending Hemoglobin A1c Pending Calcium 8.5 (8.5-10.1) mg/dl Magnesium 2.1 (1.8-2.4) mg/dl Triglycerides 100 (0-150) mg/dl Cholesterol 190 (0-200) mg/dl LDL Cholesterol, Calc 114 mg/dl VLDL Cholesterol, Calc 20 mg/dl HDL Cholesterol 56 mg/dl Cholesterol/HDL Ratio 3 //21 Range/Units 05:34 WBC 8.54 (4.8-10.8) K/uL RBC 4.04 L (4.2-5.4) M/uL Hgb 12.0 (12.0-16.0) g/dL Hct 37.5 (37-47) % MCV 92.8 (80-100) fL MCH 29.7 (25-34) pg MCHC 32.0 (32-36) g/dL RDW Std Deviation 50.5 H (36.4-46.3) fL RDW Coeff of Ese 14.9 H (11.5-14.5) % Plt Count 176 (130-400) K/uL MPV 10.3 (7.4-10.4) fL Immature Gran % (Auto) 0.4 % Neut % (Auto) 61.5 % Lymph % (Auto) 22.6 % [place] % (Auto) 12.1 % Eos % (Auto) 3.2 % Baso % (Auto) 0.2 % Neut # (Auto) 5.26 (1.4-6.5) K/uL Lymph # (Auto) 1.93 (1.2-3.4) K/uL [place] # (Auto) 1.03 H (0.11-0.59) K/uL Eos # (Auto) 0.27 (0-0.5) K/uL Baso # (Auto) 0.02 (0-0.2) K/uL Immature Gran # (Auto) 0.03 H (0.00-0.02) K/uL Sodium (136-145) mmol/L Potassium (3.5-5.1) mmol/L Chloride (98-107) mmol/L Carbon Dioxide (21-32) mmol/L Anion Gap (3-11) BUN (7-18) mg/dl Creatinine (0.6-1.2) mg/dl Est Cr Clr Drug Dosing ml/min Est GFR ( Amer) ml/min Est GFR (Non-Af Amer) ml/min BUN/Creatinine Ratio (10-20) Glucose (70-99) mg/dl POC Glucose (70-99) mg/dl Estimat Average Glucose Hemoglobin A1c Calcium (8.5-10.1) mg/dl Magnesium (1.8-2.4) mg/dl Triglycerides (0-150) mg/dl Cholesterol (0-200) mg/dl LDL Cholesterol, Calc mg/dl VLDL Cholesterol, Calc mg/dl HDL Cholesterol mg/dl Cholesterol/HDL Ratio Diagnostic Findings Right knee x-ray images personally reviewed by me agree with the following report: Knee X-Ray 06/12/21 18:24 RIGHT KNEE 2 VIEWS History: Right total knee arthroplasty. Degenerative arthritis. Postop. FINDINGS: The patient is status post a right total knee arthroplasty. The hardware is intact. No fracture or dislocation. Skin modesta are in place. There is anterior soft tissue swelling and a trace knee effusion. This is likely postoperative. IMPRESSION: Right total knee arthroplasty. No evidence for hardware complication. ACT 112: Negative or not required by law. Electronically signed by: Lalo Vanegas M.D. 06/12/2021 7:06 PM PG Care Time/CCT Total # of Minutes Spent Total Time Spent with Patient: Total time spent is greater than 50% in coordination of care (as documented) at patient's floor/unit and/or counseling patient: Prolonged Care Time Prolonged Care Time: Yes Total Prolonged Care Time: 90 I spent 90 minutes of prolonged care time, assessing this patient on 2 different occasions, calling multiple family members, speaking with cardiology and neurology about her case, reviewing results, in-depth discussions and review of electronic health records. Coding Level of Care Code 32554 Subseq Hosp Care Lvl 3 (25 - SIGNIFICANT, SEPARATELY IDENTIFIABLE ) Diagnoses Status post right knee replacement Z96.651 Shortness of breath R06.02 CVA (cerebral vascular accident) I63.9 CVA mechanism: unspecified Diabetes mellitus, type 2 E11.9 Left bundle branch block I44.7 IBS (irritable bowel syndrome) K58.9 Hypothyroidism E03.9 GERD (gastroesophageal reflux disease) K21.9 Bipolar disorder F31.9 Additional Codes Prolonged Care Time - Prolonged Care Time: Yes ([id number]) (1) CVA (cerebral vascular accident) CVA mechanism: unspecified Qualified Code(s): I63.9 - Cerebral infarction, unspecified
--- NOTE | 2021-06-12 18:41 | XCELERA ---
[id number]\[id number]_[id number]
--- NOTE | 2021-06-12 19:07 | XRay Report ---
RIGHT KNEE 2 VIEWS History: Right total knee arthroplasty. Degenerative arthritis. Postop. FINDINGS: The patient is status post a right total knee arthroplasty. The hardware is intact. No frac ture or dislocation. Skin modesta are in place. There is anterior soft tissue swelling and a trace kn ee effusion. This is likely postoperative. IMPRESSION: Right total knee arthroplasty. No evidence for hardware complication. ACT 112: Negative or not required by law. Electronically signed by: Lalo Vanegas M.D. 06/12/2021 7:06 PM
[2021-06-12] MEDS: traMADol HCL 50 MG TABLET PO PRN (19:48)
[2021-06-12] MEDS: AMITRIPTYLINE HCL 25 MG TAB PO SCH (19:48)
[2021-06-12] MEDS ORDERED: APIXABAN 5 MG TABLET PO SCH (21:00)
--- NOTE | 2021-06-12 22:40 | Electrocardiogram Report ---
Test Reason : Blood Pressure : / mmHG Vent. Rate : 066 BPM Atrial Rate : 066 BPM P-R Int : 210 ms QRS Dur : 128 ms QT Int : 448 ms P-R-T Axes : 062 -11 091 degrees QTc Int : 469 ms Sinus rhythm with 1st degree A-V block Left bundle branch block Abnormal ECG When compared with ECG of 14-MAY-2021 13:45, AR interval has increased Confirmed by Jaime Morrow ([id number]) on 06/12/2021 10:39:33 PM Referred By: REFERRED SELF Confirmed By:Jamie Morrow
[2021-06-13] MEDS: oxyCODONE/ACETAMINOPHEN 5mg/325mg TAB PO PRN ×3 (03:00→18:13)
[2021-06-13] MEDS: LEVOTHYROXINE SODIUM 125 MCG TABLET PO SCH (05:13)
[2021-06-13 06:38] LABS: Basophils # (auto) 0.02 K/uL (0-0.2); Basophils % (auto) 0.2 %; Eosinophils # (auto) 0.39 K/uL (0-0.5); Eosinophils % (auto) 4.6 %; Hematocrit (blood only) 36.3 % (37-47); Hemoglobin 11.9 g/dL (12.0-16.0); Immature Granulocytes # (auto) 0.04 K/uL (0.00-0.02); Immature Granulocytes % (auto) 0.5 %; Lymphocytes # (auto) 1.75 K/uL (1.2-3.4); Lymphocytes % (auto) 20.5 %; Mean Corpuscular Hemoglobin 30.4 pg (25-34); Mean Corpuscular Hgb Conc 32.8 g/dL (32-36); Mean Corpuscular Volume 92.8 fL (80-100); Mean Platelet Volume 10.7 fL (7.4-10.4); Monocytes # (auto) 0.71 K/uL (0.11-0.59); Monocytes % (auto) 8.3 %; Neutrophils # (auto) 5.63 K/uL (1.4-6.5); Neutrophils % (auto) 65.9 %; Platelet Count 192 K/uL (130-400); RDW Coefficient of Variation 14.7 % (11.5-14.5); Red Blood Count 3.91 M/uL (4.2-5.4); White Blood Count 8.54 K/uL (4.8-10.8)
--- NOTE | 2021-06-13 06:44 | Orthopedic Consultation ---
Date of Service June 13, 2021 Assessment & Plan (1) Closed patellar dislocation: Unfortunately she dehisced the extensor mechanism repair and dislocated her patella when she fell. Now she has gross weakness of her extensor mechanism. I plan to take her back to the operating room tomorrow for an extensor mechanism repair. We will hold on all Eliquis and other anticoagulants except aspirin for now. She will be n.p.o. past midnight tonight. We discussed the risk, benefits, and alternatives to procedure and she elected proceed. Time was spent describing the procedure and postoperative expectations. History of Present Illness Reason for Consultation: Right patella dislocation. Requesting Physician: . Attending Physician: Basia Mart MD Marichuy was seen and examined at bedside this morning. She is not having too much pain in the right knee. She has not been up and walking on it. She still having some weakness on the right side. She has not fully recovered from her stroke. She had an incident yesterday where she was getting up out of bed and she fell. She hyperflexed her right knee. She fell with all of her weight onto her right leg with her knee flexed. I was notified in the evening. The initial x-ray was negative.. . Allergies Allergy/AdvReac Type Severity Reaction Status Date / Time latex Allergy Unknown Rash Verified 06/11/21 13:48 Penicillins Allergy Unknown PT DOES Verified 06/11/21 13:48 NOT REMEMBER, REACTION WAS TEENAGER Sulfa (Sulfonamide Allergy Unknown RASH Verified 06/11/21 13:48 Antibiotics) morphine AdvReac Unknown Anxiety Verified 06/11/21 13:48 Home Medications Medication Instructions Recorded Confirmed Type topiramate 100 mg tablet 100 mg PO BID 07/13/19 06/11/21 History buspirone 5 mg tablet 5 mg PO BID tab 12/12/19 06/11/21 History pantoprazole 40 mg tablet,delayed 40 mg PO QAM #90 tab 02/01/21 06/11/21 Rx release levothyroxine 125 mcg tablet 125 mcg PO QAM #90 tab 03/18/21 06/11/21 Rx tramadol 50 mg tablet 50 mg PO Q8H PRN #30 tab 04/18/21 06/11/21 Rx amitriptyline 25 mg tablet 25 mg PO HS 05/14/21 06/11/21 History blood sugar diagnostic (OneTouch #100 ea 05/18/21 06/03/21 Rx Ultra Test) blood-glucose meter (OneTouch #1 ea 05/18/21 06/03/21 Rx Ultra2 Meter) lancets 33 gauge (OneTouch Delica #100 ea 05/18/21 06/03/21 Rx Lancets) ondansetron HCl 4 mg tablet 4 mg PO Q8H PRN #10 tab 06/09/21 06/11/21 Rx (Zofran) oxycodone-acetaminophen 5 mg-325 1 tab PO Q6H PRN #30 tab 06/09/21 06/11/21 Rx mg tablet (Percocet) ibuprofen 200 mg tablet (Advil) 200 mg PO Q6H PRN 06/11/21 06/11/21 History Past Med/Surg History Medical History Anxiety Asthma Stable- rare albuterol inhaler use Bipolar disorder Depression Diabetes mellitus, type 2 diet controlled GERD (gastroesophageal reflux disease) Well controlled and stable History of anesthesia reaction Pt had one episode after three hour surgery in 2017- patient reports she had trouble waking up after her surgery, states she became violent and upset, hallucinated while waking up. Began to calm down once she heard her daughter's voice. History of COVID-19 12/2020 - fully recovered Hypothyroidism IBS (irritable bowel syndrome) Intermittent flares - takes Amitriptyline and Protonix for GI pain control Left bundle branch block Chronic Osteopenia Spinal stenosis Syncope Patient reports she "passed out" vs fell asleep- for about 2 hours on 05/14/21 and was treated at [facility] Emergency Room. Pt states she was sitting in chair and the clock said 3pm- next time she looked it was 5pm. Dx with "altered consciousness"- negative work up- feels patient possibly fell asleep Surgical History History of arthroscopy bl knees History of cholecystectomy History of colonoscopy History of hernia surgery WITH MESH History of hysterectomy Status post gastric banding surgery AND REMOVAL (POST OP BLEEDING/HX BLOOD TRANSFUSION WITH REMOVAL) Family History Family/Other No problems noted. Mother Colon cancer Dementia Father , at age 79 from mesothelioma. Mesothelioma Sister No problems noted. Sister No problems noted. Son No problems noted. Daughter No problems noted. Other Family history of diabetes mellitus in father Denies family history of Ovarian cancer Prostate cancer Myocardial infarction Breast cancer Social History Smoking Status: Former smoker packs per day: 1; Years Smoked: 8; Number of Years Since Quit: 20; Second Hand Exposure: No; Hx Alcohol Use: Yes Alcohol type: wine Hx Substance Use: No Preferred Language: [place] Communication Ability: Effective Dramatic Critic Required: No Beliefs That Will Affect Care: None marital status: Current Living Situation: Alone Current Living Situation Comment: staying w/ son until apartment becomes available current occupational status: retired Other Information That Helps Us Care for You: No Feels Safe at Home: Yes Safety Concerns: Feels Safe At This Time Childhood Exposure to Second-Hand Smoke: Yes Dental Care, Regularly: Yes Physical Activity Frequency: Daily Seatbelt Use: always Sunscreen Use: No Assistive Devices: Walker Review of Systems All systems reviewed & are unremarkable except as noted in HPI & below. Physical Exam On physical examination the right knee, there is expected hematoma. The patella is subluxated laterally. I can easily reduce it with an audible clunk. She is unable to do a straight leg raise. She is otherwise neurovascular intact.. Constitutional WD/WN, vitals as above Eyes PERRL, conjunctivae normal, anicteric sclerae ENMT external ear and nose normal, oropharynx normal Neck trachea midline, no thyromegaly Respiratory normal respiratory effort Cardiovascular RRR, no murmur, no edema Gastrointestinal (Abdomen) normal bowel sounds, soft, nontender, no hepatosplenomegaly Psychiatric A+Ox3, euthymic affect Results & Data Results & Data Laboratory Results . Diagnostic Findings X-rays of the right knee after a fall showed no evidence of fracture. The patella does not appear dislocated on the initial x-rays.. PG Care Time/CCT Total # of Minutes Spent Total Time Spent with Patient: Total time spent is greater than 50% in coordination of care (as documented) at patient's floor/unit and/or counseling patient: Coding Level of Care Code 33961 Inpt Consult Level 4 (57 - DECISION FOR SURGERY) Diagnoses Closed patellar dislocation S83.006S
[2021-06-13 07:06] LABS: BUN Creatinine Ratio 24.6 (10-20); Calcium 8.5 mg/dl (8.5-10.1); Creatinine Clr Calc Pharmacy 46.9 ml/min; Est GFR (African American) 52.3 ml/min; Est GFR (Non-African American) 45.1 ml/min; Potassium 3.9 mmol/L (3.5-5.1)
[2021-06-13] MEDS: ATORVASTATIN 40 MG TAB PO SCH (07:59)
[2021-06-13] MEDS: TOPIRAMATE 100 MG TAB PO SCH ×2 (07:59→21:05)
[2021-06-13] MEDS: ASPIRIN 81 MG ECTAB PO SCH (08:00)
[2021-06-13] MEDS: busPIRone 5 MG TAB PO SCH ×2 (08:01→21:38)
[2021-06-13] MEDS: INSULIN ASPART 100 UNITS/ML 3 ML PEN SC SCH ×4 (08:01→21:00)
[2021-06-13] MEDS: PANTOprazole 40 MG TAB PO SCH (08:01)
[2021-06-13 08:12] LABS: Estimated Average Glucose 114 mg/dl; Hemoglobin A1C 5.6 % (4.5-5.6)
[2021-06-13] MEDS ORDERED: ASPIRIN 81 MG ECTAB PO SCH ×2 (09:00)
[2021-06-13] MEDS ORDERED: CLOPIDOGREL BISULFATE 75 MG TAB PO SCH (09:00)
--- NOTE | 2021-06-13 09:11 | Hospitalist Progress Note ---
Date of Service June 13, 2021 Assessment & Plan (1) CVA (cerebral vascular accident): Plan: 71 y/o F Hx DM II, bipolar, hypothyroidism, ILD, osteoarthritis. The pt had her R knee replaced one day prior. She was feeling well and discharged shortly after surgery for home rehab. She woke up on the AM of admission with weakness in her R arm and likely her right leg as well. Imaging including a CT/CTA head/neck proved negative for acute abnormalities in the ER. Labs are unremarkable. After admission, brain MRI performed which showed acute to subacute lacunar infarct in the left thalamus measuring 11 mm She has gained some strength back in the right lower extremity but right upper extremity remains somewhat weak and has a sensory deficit She reports a history of atrial fibrillation in the past but no records are available to confirm this and her family can also not confirm this other than that the patient has stated this in the past. She has never been on anticoagulation but she is agreeable to doing so plan for loop recorder this week to see if we can capture afib/flutter There is a possibility that this is a thromboembolic CVA, hold Eliquis for planned OR tomorrow and then resume when okay with orthopedics Echocardiogram shows preserved EF 55-60%, no wall motion abnormalities, septal motion consistent with bundle branch block, mild LVH, mild pulmonary hypertension, negative bubble Telemetry with sinus rhythm thus far, had brief atrial tachycardia this morning, plan for loop recorder Cholesterol is excellent, hemoglobin A1c is < 6.0% -Continue aspirin 81 mg p.o. once daily -Start atorvastatin 40 mg daily -PT/OT consultations appreciated-recommend rehab placement -Neurology consultation appreciated Plan: aspirin 81mg, Lipitor 40mg, BP control, Eliquis on discharge, loop recorder rehab on discharge and follow up with neurology in 6-8 weeks (2) Status post right knee replacement: Plan: Status post right TKA with Dr. Gooden on 06/10 Continue pain control with oxycodone but changed to 1 tablet every 4 hours -PT/OT consulted -With fall onto right knee on the evening of 06/12 in the hospital with some bleeding from the incision but the incision remains intact, some swelling around the knee Knee x-ray without fracture on 06/12 -Continue daily dressing and [place] wrap compression, ice packs -Consult orthopedic surgery given recent fall onto the knee with bleeding and swelling - Dr. Gooden to take to OR tomorrow for revision of extensor component (3) Shortness of breath: Plan: With recent diagnosis of possible ILD Chest x-ray here with chronic interstitial changes similar to previous Follows with pulmonology and is set to have high-resolution CT scan of the chest and PFTs as an outpatient Not hypoxic no respiratory distress Continue albuterol as needed, lungs are clear today (4) Diabetes mellitus, type 2: Plan: Hemoglobin A1c is < 6.0%, not really diabetic Continue Accu-Cheks, NovoLog supplemental insulin as needed She is not on any medications at home for this as it is well controlled (5) Left bundle branch block: Plan: Chronic Nuclear stress test in 2019 was without ischemia (6) IBS (irritable bowel syndrome): Plan: Continue amitriptyline (7) Hypothyroidism: Plan: TSH recently slightly elevated at 4.6 Continue home levothyroxine Follow-up with PCP (8) GERD (gastroesophageal reflux disease): Plan: Continue pantoprazole Has a history of lap band with the band eroding in the stomach resulting in several corrective surgeries and associated bleeding She reports being prone to getting ulcers -Avoid NSAIDs Okay for baby aspirin for now but planning on changing Eliquis as above (9) Bipolar disorder: Plan: Continue Topamax, buspirone Plan: Disposition-continued stay on PCU, PT/OT recommending rehab-referrals will be needed, case management is involved Full code OR tomorrow, Loop recorder Sunday, rehab on ? Admission and Anticipated Discharge Date Admission Date: June 12, 2021 Subjective patient c/o anxiety, says she takes Xanax at home, getting pain relief with oxycodone but still anxious appreciate consult from Dr. Gooden, plan for OR tomorrow with revision of extensor mechanism stable on monitor, vitals stable reviewed chart since admission including neurology consultation discussed with Alfredo [facility] cardiology, plan for loop recorder, maybe Sunday patient says her right side still feels "weird" she has sensation in right leg but not normal, she is moving right arm, fine m otor control of hand is impaired she says she is getting confused, not sure if this is her anxiety or due to the stroke I discussed the plan for the week so she knows what to expect: knee surgery armen orrow, loop recorder Sunday, try for rehab by she has not had a BM since 06/08, will monitor, eating well Review of Systems Review of Systems: All systems reviewed & are unremarkable except as noted in Subjective Respiratory: no cough and no dyspnea Cardiovascular: no chest pain Gastrointestinal: + constipation; no abdominal pain, no nausea, no vomiting and no diarrhea/loose stools Musculoskeletal: + joint pain (right knee) Neurologic: + localized weakness (right leg, right arm/hand), + paresthesia (right leg) and + lack of coordination (right hand) Psychiatric: + anxiety; no depression Physical Exam Constitutional: well developed, well nourished and comfortable; no acute distress Neck: trachea midline, no thyromegaly Respiratory: normal respiratory effort, lungs clear to auscultation Cardiovascular: RRR, no murmur, no edema Gastrointestinal (Abdomen): normal bowel sounds, soft, nontender, no hepatosplenomegaly Musculoskeletal: Head/Neck/Chest: normocephalic, head atraumatic and neck supple; no chest tenderness Extremities: extremities normal to inspection and + abnormal strength (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); no cyanosis, no clubbing and no petechiae Skin: no rashes, warm and dry Neurologic: CN's II-XI intact bilaterally, normal sensation to monofilament, moves all extremities, + focal motor deficit (reduced strength right hand) and awake; not confused Psychiatric: Orientation: alert and oriented x 3 Affect: + anxious affect Results & Data Results & Data ([facility]) Vital Signs (Past 12 Hours) Vital Signs Temp Pulse Pulse Resp BP Pulse Ox 06/13/21 08:00 36.8 C 86 18 139/66 95 06/13/21 03:18 36.7 C 72 20 144/86 H 97 06/12/21 23:26 70 06/12/21 23:02 36.8 C 67 20 129/79 94 Laboratory Results Laboratory Results - last 24 hr 06/12/21 06/12/21 06/12/21 05:34 11:01 16:15 WBC RBC Hgb Hct MCV MCH MCHC RDW Std Deviation RDW Coeff of Ese Plt Count MPV Immature Gran % (Auto) Neut % (Auto) Lymph % (Auto) [place] % (Auto) Eos % (Auto) Baso % (Auto) Neut # (Auto) Lymph # (Auto) [place] # (Auto) Eos # (Auto) Baso # (Auto) Immature Gran # (Auto) Sodium Potassium Chloride Carbon Dioxide Anion Gap BUN Creatinine Est Cr Clr Drug Dosing Est GFR ( Amer) Est GFR (Non-Af Amer) BUN/Creatinine Ratio Glucose POC Glucose 77 86 Estimat Average Glucose 114 Hemoglobin A1c 5.6 Calcium 06/12/21 06/13/21 06/13/21 20:05 05:45 05:45 WBC 8.54 RBC 3.91 L Hgb 11.9 L Hct 36.3 L MCV 92.8 MCH 30.4 MCHC 32.8 RDW Std Deviation 50.0 H RDW Coeff of Ese 14.7 H Plt Count 192 MPV 10.7 H Immature Gran % (Auto) 0.5 Neut % (Auto) 65.9 Lymph % (Auto) 20.5 [place] % (Auto) 8.3 Eos % (Auto) 4.6 Baso % (Auto) 0.2 Neut # (Auto) 5.63 Lymph # (Auto) 1.75 [place] # (Auto) 0.71 H Eos # (Auto) 0.39 Baso # (Auto) 0.02 Immature Gran # (Auto) 0.04 H Sodium 137 Potassium 3.9 Chloride 109 H Carbon Dioxide 25 Anion Gap 3.0 BUN 30 H Creatinine 1.20 Est Cr Clr Drug Dosing 46.9 Est GFR ( Amer) 52.3 Est GFR (Non-Af Amer) 45.1 BUN/Creatinine Ratio 24.6 H Glucose 105 H POC Glucose 102 H Estimat Average Glucose Hemoglobin A1c Calcium 8.5 06/13/21 07:12 WBC RBC Hgb Hct MCV MCH MCHC RDW Std Deviation RDW Coeff of Ese Plt Count MPV Immature Gran % (Auto) Neut % (Auto) Lymph % (Auto) [place] % (Auto) Eos % (Auto) Baso % (Auto) Neut # (Auto) Lymph # (Auto) [place] # (Auto) Eos # (Auto) Baso # (Auto) Immature Gran # (Auto) Sodium Potassium Chloride Carbon Dioxide Anion Gap BUN Creatinine Est Cr Clr Drug Dosing Est GFR ( Amer) Est GFR (Non-Af Amer) BUN/Creatinine Ratio Glucose POC Glucose 105 H Estimat Average Glucose Hemoglobin A1c Calcium Medications Administered Current Inpatient Medications Albuterol (Albuterol Hfa 8 Gm Inhaler) 1 puffs INH Q6H PRN PRN Reason: Shortness Of Breath Stop: 07/11/21 16:32 Alprazolam (Alprazolam 0.5 Mg Tablet) 0.5 mg PO Q8H PRN PRN Reason: Anxiety Stop: 07/13/21 08:44 Amitriptyline HCl (Amitriptyline Hcl 25 Mg Tab) 25 mg PO HS [facility] Stop: 07/11/21 20:59 Last Admin: 06/12/21 19:48 Dose: 25 mg Documented by: Aspirin (Aspirin 81 Mg Ectab) 81 mg PO QAM [facility] Stop: 07/13/21 08:59 Last Admin: 06/13/21 08:00 Dose: 81 mg Documented by: Atorvastatin Calcium ([facility]orvastatin 40 Mg Tab) [facility] Stop: 07/13/21 08:59 Last Admin: 06/13/21 07:59 Dose: 40 mg Documented by: Buspirone HCl (Buspirone 5 Mg Tab) 5 mg PO BID [facility] Stop: 07/11/21 20:59 Last Admin: 06/13/21 08:01 Dose: 5 mg Documented by: Dextrose (Dextrose 50% 50 Ml Syringe) 25 - 50 ml IV UD PRN; Protocol PRN Reason: Hypoglycemia Protocol Stop: 07/11/21 16:32 Glucagon (Glucagon For Inj 1 Mg Vial) 1 mg SQ UD PRN; Protocol PRN Reason: Hypoglycemia Protocol Stop: 07/11/21 16:32 Glucose (Glucose 10 Tabs/Tube) 4 - 8 tabs PO UD PRN; Protocol PRN Reason: Hypoglycemia Protocol Stop: 07/11/21 16:32 Glucose (Glucose 40% Gel 15 Gm Tube) 15 - 30 gm PO UD PRN; Protocol PRN Reason: Hypoglycemia Protocol Stop: 07/11/21 16:32 Insulin Aspart (Insulin Aspart 100 Units/Ml 3 Ml Pen) 0 units SC [facility] Stop: 07/11/21 16:32 Last Admin: 06/13/21 08:01 Dose: Not Given Documented by: Levothyroxine Sodium (Levothyroxine Sodium 125 Mcg Tablet) 125 mcg PO DAILYBB [facility] Stop: 07/12/21 06:29 Last Admin: 06/13/21 05:13 Dose: 125 mcg Documented by: Miscellaneous (Carbohydrates For Hypoglycemia ) 15 - 30 gm PO UD PRN PRN Reason: Hypoglycemia Protocol Stop: 07/11/21 16:32 Miscellaneous Information (Pharmacist Discharge Med Rec Consult) 1 ea N/A UD PRN PRN Reason: Consult Stop: 07/11/21 16:32 Oxycodone/Acetaminophen (Oxycodone/Acetaminophen 5mg/325mg Tab) 1 tab PO Q4H PRN PRN Reason: Pain Stop: 06/25/21 19:56 Last Admin: 06/13/21 08:07 Dose: 1 tab Documented by: Pantoprazole Sodium (Pantoprazole 40 Mg Tab) 40 mg PO QAM [facility] Stop: 07/12/21 08:59 Last Admin: 06/13/21 08:01 Dose: 40 mg Documented by: Topiramate (Topiramate 100 Mg Tab) 100 mg PO BID [facility] Stop: 07/11/21 20:59 Last Admin: 06/13/21 07:59 Dose: 100 mg Documented by: Tramadol HCl (Tramadol Hcl 50 Mg Tablet) 50 mg PO Q8H PRN PRN Reason: pain Stop: 07/11/21 16:32 Last Admin: 06/12/21 19:48 Dose: 50 mg Documented by: PG Care Time/CCT Total # of Minutes Spent Total Time Spent with Patient: Total time spent is greater than 50% in coordination of care (as documented) at patient's floor/unit and/or counseling patient: Coding Level of Care Code 36829 Subseq Hosp Care Lvl 3 Diagnoses CVA (cerebral vascular accident) I63.9 CVA mechanism: unspecified Status post right knee replacement Z96.651 Shortness of breath R06.02 Diabetes mellitus, type 2 E11.9 Left bundle branch block I44.7 IBS (irritable bowel syndrome) K58.9 Hypothyroidism E03.9 GERD (gastroesophageal reflux disease) K21.9 Bipolar disorder F31.9 (1) CVA (cerebral vascular accident) CVA mechanism: unspecified Qualified Code(s): I63.9 - Cerebral infarction, unspecified
[2021-06-13] MEDS: ALPRAZolam 0.5 MG TABLET PO PRN ×2 (10:09→21:03)
--- NOTE | 2021-06-13 10:24 | Neurology Progress Note ---
Date of Service June 13, 2021 Assessment & Plan (1) CVA (cerebral vascular accident): (2) Expressive aphasia: Plan: Acute ischemic left thalamic stroke presenting with right hemisensory deficit, thalamic aphasia, and mild right hemiparesis noted in the morning of 06-11. she was not on any antiplatelet or anticoagulant medication prior. The aphasia has resolved. Motor assessment of the right lower extremity is limited in the context of her recent right total knee arthroplasty. MRI of the brain showed the small left thalamic stroke. I reviewed these films. Stroke risk factors for this patient may include either type 2 diabetes mellitus or hyperglycemia (recent hemoglobin A1c's have been normal, not on medication for diabetes), possibly mild hyperlipidemia, and a history of atrial fibrillation. echocardiogram was unremarkable. She had a recent right total knee arthroplasty, 06-10 and fell 06-12, landing on her right knee. she is for reoperation by Dr. Gooden. Recommendations: 1. Continue aspirin 81 mg/day 2. Continue atorvastatin 40 milligrams daily 3. increase activity as able, after her surgery tomorrow on the right knee. 4. Physical, occupational, and speech therapy consults 5. There is a history of atrial fibrillation in the past but there is no source of embolus and no atrial fibrillation currently. I am uncertain why we are initiating anticoagulation automatically, although I agree with 30 day event monitor. Otherwise I would go with the antiplatelet medication alone. Overall, I spent a total of 60 minutes with this case, including review of records, review of MRI films, Direct evaluation the patient at bedside, and discussion of the case with the patient and RN at bedside, and Dr. Cordero including differential diagnosis and treatment options. Admission and Anticipated Discharge Date Admission Date: June 12, 2021 Subjective patient is anxious about all of what is going on with her. She does have history of bipolar disorder on amitriptyline and buspirone and has been getting alprazolam as needed (which does help ). She has pain in her right knee. She feels her speech is normal and has weakness and numbness in the right arm and leg. Blood pressure is 139/66. Triglycerides 100 total cholesterol 190 and hemoglobin A1c 5.6. CBC today shows mild anemia Chem profile was remarkable for glucose of 105. BUN is mildly elevated. Echocardiogram was unremarkable. The patient fell yesterday and is going to the OR tomorrow to repair a dislocated patella Results & Data ([facility]) Vital Signs (Past 12 Hours) Vital Signs Temp Pulse Pulse Resp BP Pulse Ox 06/13/21 08:59 67 06/13/21 08:00 36.8 C 86 18 139/66 95 06/13/21 03:18 36.7 C 72 20 144/86 H 97 06/12/21 23:26 70 06/12/21 23:02 36.8 C 67 20 129/79 94 Exam (Neuro) Physical Exam: She is awake and alert. Speech is without aphasia or dysarthria. Mood is normal and affect is mildly anxious. Thought processes are reasonable. Extraocular eye muscles are intact without nystagmus. There is no facial droop but she move voluntarily well. Tongue is midline. Patient has some decreased sensation to touch in the V2 and V3 distributions on the right compared to the left which seems normal. Without wrist arms are some drift on the right. [id number] testing shows no obvious ataxia. She has no resting or action tremor. Motor strength is 4/5 diffusely in the right arm and leg. She has limited movement at the right knee because of her recent surgery and trauma yesterday. Reflexes are 1/4 in the biceps triceps brachioradialis tendons bilaterally. Achilles tendon reflexes are trace to absent bilaterally. The left quadriceps reflexes 1/4 and the right is not tested due to recent surgery PG Care Time/CCT Total # of Minutes Spent Total Time Spent with Patient: Total time spent is greater than 50% in coordination of care (as documented) at patient's floor/unit and/or counseling patient: Coding Level of Care Code 77477 Subseq Hosp Care Lvl 3 Diagnoses CVA (cerebral vascular accident) I63.9 CVA mechanism: unspecified Expressive aphasia R47.01 (1) CVA (cerebral vascular accident) CVA mechanism: unspecified Qualified Code(s): I63.9 - Cerebral infarction, unspecified
--- NOTE | 2021-06-13 13:36 | Cardiology Consultation ---
Date of Consultation June 13, 2021 Assessment & Plan (1) Cerebrovascular accident (CVA) of left thalamus: Mrs. Ye is a 71 year old female with a history of Type 2 Diabetes Mellitus, Asthma, Osteoarthritis, Spinal Stenosis, Anxiety, Bipolar Disorder, Depression, Hypothyroidism, Chronic LBBB, GERD, and POD#3 from a Right TKA -- who was admitted to [facility] on 06/11/21 with an Ischemic Left Thalamic Stroke. Patient had a R TKA on 06/10/21 and was later discharged home. Patient went to stay at her son's house and went to bed at about 9:00 p.m. that evening. Upon waking up on the morning of 06/11/2021 and trying to get out of bed she was unable to do so. She was able to knock on the wall to get her son's attention. Patient was unable to speak correctly and get the right words out, and she also had weakness and clumsiness of the right arm and fingers, as well as numbness of the right face, right arm, and hand, and her right leg to a lesser extent. Her aphasia has now resolved, but her right arm and hand are still clumsy, weak, and still feels numb in places. Telemetry overnight shows brief runs of either atrial tachycardia or supraventricular tachycardia, but there is no evidence of atrial fibrillation or atrial flutter. Patient is uncertain, but she is concerned she may have had atrial fibrillation in the past (although she is never told me this, and there is no mention of atrial fibrillation in her medical records). Recommend the followin. Hold anticoagulation for now as she is going back to the OR tomorrow for her dislocated prosthetic right knee. 2. Following surgery, recommend Eliquis 5 mg b.i.d.. 3. Recommend implantation of a [employer] loop recorder on Sunday to assess for atrial dysrhythmias going forward. 4. Atorvastatin 40 mg daily. 5. Aspirin 81 mg daily. 6. PT/OT/Speech Therapy as ordered. (2) PSVT (paroxysmal supraventricular tachycardia): Telemetry overnight shows brief runs of either atrial tachycardia or supraventricular tachycardia, but there is no evidence of atrial fibrillation or atrial flutter so far. 1. Begin Metoprolol Tartrate 25 mg b.i.d., convert over to Toprol XL at discharge. (3) LBBB (left bundle branch block): She has a chronic LBBB, negative ischemic workup in the past. No further evaluation is necessary at this time. (4) Closed patellar dislocation: -- As per orthopedics. History of Present Illness Reason for Consultation: -- CVA. -- Atrial Tachycardia, Possible AVNRT. -- ? History of A-Fib Attending Physician: Nilesh Cordero DO History of Present Illness Mrs. Ye is a 71 year old female with a history of Type 2 Diabetes Mellitus, Asthma, Osteoarthritis, Spinal Stenosis, Anxiety, Bipolar Disorder, Depression, Hypothyroidism, Chronic LBBB, GERD, and POD#3 from a Right TKA -- who was admitted to [facility] on 06/11/21 with an Ischemic Left Thalamic Stroke. Patient had a R TKA on 06/10/21 and was later discharged to home. Patient went to stay at her son's house and went to bed at about 9:00 p.m. that evening. Upon waking up on the morning of 06/11/2021 and trying to get out of bed she was unable to do so. She was able to knock on the wall to get her son's attention. Patient was unable to speak correctly and get the right words out, and she also had weakness and clumsiness of the right arm and fingers, as well as numbness of the right face, right arm, and hand, and her right leg to a lesser extent. Her aphasia has now resolved, but her right arm and hand are clumsy, weak, and still feels numb in places. On telemetry, she is noted to have brief runs of either atrial tachycardia or supraventricular tachycardia, but there is no evidence of atrial fibrillation or atrial flutter. Patient does admit to occasional palpitations which are brief, but has not had any prolonged episodes of palpitations or any irregular, elevated heart rates. She specifically denies any exertional chest pain, heaviness, tightness, pressure, or discomfort. She denies any exertional neck, jaw, back, or arm pain. She denies any SOB at rest, unusual SKAGGS, orthopnea, or PND. She denies any palpitations, syncope, or near syncope. She denies any claudication. Patient is concerned that she may have had atrial fibrillation in the past, but she has never told me that nor do any of her medical records reflect that she ever had AFib. Patient has had EKG abnormalities in the past at various times -- approximately 10 years ago in [place]. She subsequently underwent a normal stress test and met with a manager biostatistics who told her that there "was nothing wrong with her heart". With the exception of various EKG abnormalities -- patient denies any prior cardiac history or cardiac events. She has never had a Cardiac Catheterization. Patient had a recent fall and dislocated her right knee prosthesis. She will be going back to the OR tomorrow with Dr. Gooden. Allergies Allergy/AdvReac Type Severity Reaction Status Date / Time latex Allergy Unknown Rash Verified 06/11/21 13:48 Penicillins Allergy Unknown PT DOES Verified 06/11/21 13:48 NOT REMEMBER, REACTION WAS TEENAGER Sulfa (Sulfonamide Allergy Unknown RASH Verified 06/11/21 13:48 Antibiotics) morphine AdvReac Unknown Anxiety Verified 06/11/21 13:48 Home Medications Medication Instructions Recorded Confirmed Type topiramate 100 mg tablet 100 mg PO BID 07/13/19 06/11/21 History buspirone 5 mg tablet 5 mg PO BID tab 12/12/19 06/11/21 History pantoprazole 40 mg tablet,delayed 40 mg PO QAM #90 tab 02/01/21 06/11/21 Rx release levothyroxine 125 mcg tablet 125 mcg PO QAM #90 tab 03/18/21 06/11/21 Rx tramadol 50 mg tablet 50 mg PO Q8H PRN #30 tab 04/18/21 06/11/21 Rx amitriptyline 25 mg tablet 25 mg PO HS 05/14/21 06/11/21 History blood sugar diagnostic (OneTouch #100 ea 05/18/21 06/03/21 Rx Ultra Test) blood-glucose meter (OneTouch #1 ea 05/18/21 06/03/21 Rx Ultra2 Meter) lancets 33 gauge (OneTouch Delica #100 ea 05/18/21 06/03/21 Rx Lancets) ondansetron HCl 4 mg tablet 4 mg PO Q8H PRN #10 tab 06/09/21 06/11/21 Rx (Zofran) oxycodone-acetaminophen 5 mg-325 1 tab PO Q6H PRN #30 tab 06/09/21 06/11/21 Rx mg tablet (Percocet) ibuprofen 200 mg tablet (Advil) 200 mg PO Q6H PRN 06/11/21 06/11/21 History Patient History Medical History Anxiety Asthma Stable- rare albuterol inhaler use Bipolar disorder Depression Diabetes mellitus, type 2 diet controlled GERD (gastroesophageal reflux disease) Well controlled and stable History of anesthesia reaction Pt had one episode after three hour surgery in 2017- patient reports she had trouble waking up after her surgery, states she became violent and upset, hallucinated while waking up. Began to calm down once she heard her daught er's voice. History of COVID-19 12/2020 - fully recovered Hypothyroidism IBS (irritable bowel syndrome) Intermittent flares - takes Amitriptyline and Protonix for GI pain control Left bundle branch block Chronic Osteopenia Spinal stenosis Syncope Patient reports she "passed out" vs fell asleep- for about 2 hours on 05/14/21 and was treated at [facility] Emergency Room. Pt states she was sitting in chair and the clock said 3pm- next time she looked it was 5pm. Dx with "altered consciousness"- negative work up- feels patient possibly fell asleep Surgical History History of arthroscopy bl knees History of cholecystectomy History of colonoscopy History of hernia surgery WITH MESH History of hysterectomy Status post gastric banding surgery AND REMOVAL (POST OP BLEEDING/HX BLOOD TRANSFUSION WITH REMOVAL) Family History Family/Other No problems noted. Mother Colon cancer Dementia Father , at age 79 from mesothelioma. Mesothelioma Sister No problems noted. Sister No problems noted. Son No problems noted. Daughter No problems noted. 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 HEENT: Head is atraumatic, normocephalic. EOM's intact. Facies symmetric. No perioral cyanosis. NECK: No JVD. JVP is at the level of the clavicle sitting upright. Carotid upstrokes are + 2 bilaterally. No bruits are noted. CHEST/LUNGS: Clear to auscultation throughout all lung rubio. No wheezes, rales, or crackles. CVS: S1 and S2 are regular without murmurs, gallops, or rubs. PMI is nondisplaced. No lifts, heaves, or thrills. No abdominal aortic or renal bruits. ABDOMINAL EXAM: Bowel sounds are present. No masses, organomegaly, or tenderness. EXTREMITIES: No clubbing or cyanosis. No edema. Intact posterior tibial and radial pulses bilaterally. NEUROLOGIC EXAM: Patient is awake, alert, and oriented. Pleasant and cooperative. Answers questions appropriately. Speech is clear. Weakness is noted of the right arm and hand. Cannot extend the right 4th and 5th fingers. Gait pattern not assessed. TELEMETRY: -- Sinus rhythm with an IVCD. -- Brief episode of PAT vs PSVT. ECHOCARDIOGRAM 06/12/21: -- Normal LV size and systolic function. -- LVEF 55% to 60%, no regional wall motion abnormalities, but septal motion consistent with bundle branch block. -- Mild concentric LVH. -- Mild pulmonary hypertension, estimated RVSP 40 mmHg. -- No significant valvular abnormalities. -- No evidence of interatrial shunt on bubble study. Results & Data ([facility]) Vital Signs (Past 12 Hours) Vital Signs Temp Pulse Pulse Resp BP Pulse Ox 06/13/21 12:01 36.9 C 70 16 144/69 H 96 06/13/21 08:59 67 06/13/21 08:00 36.8 C 86 18 139/66 95 06/13/21 03:18 36.7 C 72 20 144/86 H 97 Laboratory Results Laboratory Results - last 24 hr 06/12/21 06/12/21 06/12/21 05:34 16:15 20:05 WBC RBC Hgb Hct MCV MCH MCHC RDW Std Deviation RDW Coeff of Ese Plt Count MPV Immature Gran % (Auto) Neut % (Auto) Lymph % (Auto) [place] % (Auto) Eos % (Auto) Baso % (Auto) Neut # (Auto) Lymph # (Auto) [place] # (Auto) Eos # (Auto) Baso # (Auto) Immature Gran # (Auto) Sodium Potassium Chloride Carbon Dioxide Anion Gap BUN Creatinine Est Cr Clr Drug Dosing Est GFR ( Amer) Est GFR (Non-Af Amer) BUN/Creatinine Ratio Glucose POC Glucose 86 102 H Estimat Average Glucose 114 Hemoglobin A1c 5.6 Calcium 06/13/21 06/13/21 06/13/21 05:45 05:45 07:12 WBC 8.54 RBC 3.91 L Hgb 11.9 L Hct 36.3 L MCV 92.8 MCH 30.4 MCHC 32.8 RDW Std Deviation 50.0 H RDW Coeff of Ese 14.7 H Plt Count 192 MPV 10.7 H Immature Gran % (Auto) 0.5 Neut % (Auto) 65.9 Lymph % (Auto) 20.5 [place] % (Auto) 8.3 Eos % (Auto) 4.6 Baso % (Auto) 0.2 Neut # (Auto) 5.63 Lymph # (Auto) 1.75 [place] # (Auto) 0.71 H Eos # (Auto) 0.39 Baso # (Auto) 0.02 Immature Gran # (Auto) 0.04 H Sodium 137 Potassium 3.9 Chloride 109 H Carbon Dioxide 25 Anion Gap 3.0 BUN 30 H Creatinine 1.20 Est Cr Clr Drug Dosing 46.9 Est GFR ( Amer) 52.3 Est GFR (Non-Af Amer) 45.1 BUN/Creatinine Ratio 24.6 H Glucose 105 H POC Glucose 105 H Estimat Average Glucose Hemoglobin A1c Calcium 8.5 06/13/21 11:11 WBC RBC Hgb Hct MCV MCH MCHC RDW Std Deviation RDW Coeff of Ese Plt Count MPV Immature Gran % (Auto) Neut % (Auto) Lymph % (Auto) [place] % (Auto) Eos % (Auto) Baso % (Auto) Neut # (Auto) Lymph # (Auto) [place] # (Auto) Eos # (Auto) Baso # (Auto) Immature Gran # (Auto) Sodium Potassium Chloride Carbon Dioxide Anion Gap BUN Creatinine Est Cr Clr Drug Dosing Est GFR ( Amer) Est GFR (Non-Af Amer) BUN/Creatinine Ratio Glucose POC Glucose 97 Estimat Average Glucose Hemoglobin A1c Calcium Diagnostic Findings MRI BRAIN 06/11/21: Brain parenchyma: There is an 11 mm focus of restricted diffusion identified within the left thalamus consistent with an acute to subacute lacunar infarct. No additional foci of restricted diffusion are identified. There is no hemorrhage or mass effect. There is age-related involutional change noting minimal microangiopathic disease. Cabezas-white matter differentiation is preserved. No extra-axial fluid collection is seen. Faint mineralization is noted in the basal ganglia. The cerebellar tonsils are normal in configuration. Ventricles, sulci, and cisterns: Prominent secondary to involutional change. Pituitary and sella: Unremarkable. Intracranial vasculature: Normal flow voids are maintained at the skull base. Orbits: The bony orbits are grossly intact. Orbital contents are normal in appearance. Sinuses and mastoids: Clear. Calvarium: Unremarkable. Cervical cord: Partially visualized cervical spinal cord is normal in morphology and signal intensity. IMPRESSION: 1. There is an acute to subacute lacunar infarct identified in the left thalamus as above. 2. No additional foci of acute ischemia are identified. 3. There is no hemorrhage or mass effect. CTA HEAD/NECK 06/11/21: 1. There is no hemorrhage, mass effect, or evidence of acute territorial ischemia by CT criteria. 2. Unremarkable CT angiogram of the brain. 3. Unremarkable CT angiogram of the neck. PG Care Time/CCT Total # of Minutes Spent Total Time Spent with Patient: Total time spent is greater than 50% in coordination of care (as documented) at patient's floor/unit and/or counseling patient:40 Coding Level of Care Code 09668 Initial Inpt Care Lvl 3 Diagnoses Cerebrovascular accident (CVA) of left thalamus I63.9 PSVT (paroxysmal supraventricular tachycardia) I47.1 LBBB (left bundle branch block) I44.7 Closed patellar dislocation S83.006A Time Spent (min) 55
[2021-06-13] MEDS: METOPROLOL TARTRATE 25 MG TAB PO SCH (21:03)
[2021-06-13] MEDS: AMITRIPTYLINE HCL 25 MG TAB PO SCH (21:05)
[2021-06-14 05:55] LABS: Basophils # (auto) 0.02 K/uL (0-0.2); Basophils % (auto) 0.3 %; Eosinophils # (auto) 0.41 K/uL (0-0.5); Eosinophils % (auto) 5.2 %; Hematocrit (blood only) 38.5 % (37-47); Hemoglobin 12.7 g/dL (12.0-16.0); Immature Granulocytes # (auto) 0.04 K/uL (0.00-0.02); Immature Granulocytes % (auto) 0.5 %; Lymphocytes # (auto) 1.75 K/uL (1.2-3.4); Mean Corpuscular Hemoglobin 30.3 pg (25-34); Mean Corpuscular Volume 91.9 fL (80-100); Monocytes # (auto) 0.79 K/uL (0.11-0.59); Monocytes % (auto) 9.9 %; Neutrophils # (auto) 4.93 K/uL (1.4-6.5); Neutrophils % (auto) 62.1 %; Platelet Count 197 K/uL (130-400); RDW Coefficient of Variation 14.4 % (11.5-14.5); RDW Standard Deviation 48.5 fL (36.4-46.3); Red Blood Count 4.19 M/uL (4.2-5.4); White Blood Count 7.94 K/uL (4.8-10.8)
[2021-06-14] MEDS: LEVOTHYROXINE SODIUM 125 MCG TABLET PO SCH (05:58)
[2021-06-14 06:19] LABS: BUN Creatinine Ratio 27.3 (10-20); Calcium 8.6 mg/dl (8.5-10.1); Est GFR (African American) 67.6 ml/min; Est GFR (Non-African American) 58.3 ml/min; Potassium 3.7 mmol/L (3.5-5.1)
[2021-06-14] MEDS ORDERED: ROPIVACAINE 0.5% 5 MG/ML 30 ML VIAL ONE (06:33)
--- NOTE | 2021-06-14 08:02 | Anesthesiology Consultation ---
Date of Service June 14, 2021 Assessment & Plan (1) Encounter for pre-operative examination: Chart Review Chart Review: Acceptable Risk for Surgery and Patient NOT seen in Pre Admission Testing Consults Requested none Additional Notes 71 yo female now POD #4 from right TKA in same day joint program with acute to subacute lacunar infarct in the left thalamus on POD#1. Pt with fall in hospital on POD#2 with damage to operative knee and pt now scheduled for right quadriceps repair on POD#4. ASA standards are to avoid all non-emergent anesthetics in the event of acute stroke, but pt requiring surgical repair at this time. Therefore, will proceed with planned procedure under [place] with the understanding that patient is high risk for perioperative complications including repeat stroke or worsening of current stroke symptoms due to her comorbidities and need for surgery and anesthesia in the setting of acute stroke. History Surgery Operation Date: 06/14/21 10:00 Proposed Procedures p Right Quadriceps Repair - Jason Gooden, Height/Weight Height: 5 ft 4 in Weight: 93.5 kg Allergies Allergy/AdvReac Type Severity Reaction Status Date / Time latex Allergy Unknown Rash Verified 06/11/21 13:48 Penicillins Allergy Unknown PT DOES Verified 06/11/21 13:48 NOT REMEMBER, REACTION WAS TEENAGER Sulfa (Sulfonamide Allergy Unknown RASH Verified 06/11/21 13:48 Antibiotics) morphine AdvReac Unknown Anxiety Verified 06/11/21 13:48 Medications Home Medications Medication Instructions Recorded Confirmed Last Taken topiramate 100 mg tablet 100 mg PO BID 07/13/19 06/11/21 06/11/21 buspirone 5 mg tablet 5 mg PO BID tab 12/12/19 06/11/21 06/11/21 pantoprazole 40 mg tablet,delayed 40 mg PO QAM #90 tab 02/01/21 06/11/21 06/11/21 release levothyroxine 125 mcg tablet 125 mcg PO QAM #90 tab 03/18/21 06/11/21 06/11/21 tramadol 50 mg tablet 50 mg PO Q8H PRN #30 tab 04/18/21 06/11/21 06/03/21 amitriptyline 25 mg tablet 25 mg PO HS 05/14/21 06/11/21 06/10/21 blood sugar diagnostic (OneTouch #100 ea 05/18/21 06/03/21 Unknown Ultra Test) blood-glucose meter (OneTouch #1 ea 05/18/21 06/03/21 Unknown Ultra2 Meter) lancets 33 gauge (OneTouch Delica #100 ea 05/18/21 06/03/21 Unknown Lancets) ondansetron HCl 4 mg tablet 4 mg PO Q8H PRN #10 tab 06/09/21 06/11/21 Unknown (Zofran) oxycodone-acetaminophen 5 mg-325 1 tab PO Q6H PRN #30 tab 06/09/21 06/11/21 06/11/21 09:00 mg tablet (Percocet) ibuprofen 200 mg tablet (Advil) 200 mg PO Q6H PRN 06/11/21 06/11/21 06/11/21 12:00 Active Medications Generic Name Dose Route Start Last Admin Trade Name Freq PRN Reason Stop Dose Admin Alprazolam 0.5 mg 06/13/21 08:45 06/13/21 21:03 Alprazolam 0.5 Mg Tablet PO 07/13/21 08:44 0.5 mg Q8H PRN Administration Anxiety Amitriptyline HCl 25 mg 06/11/21 21:00 06/13/21 21:05 Amitriptyline Hcl 25 Mg Tab PO 07/11/21 20:59 25 mg HS IONA Administration Aspirin 81 mg 06/13/21 09:00 06/14/21 08:37 Aspirin 81 Mg Ectab PO 07/13/21 08:59 81 mg QAM IONA Administration Atorvastatin Calcium 40 mg 06/13/21 09:00 06/14/21 08:37 Atorvastatin 40 Mg Tab PO 07/13/21 08:59 40 mg QAM IONA Administration Buspirone HCl 5 mg 06/11/21 21:00 06/14/21 08:36 Buspirone 5 Mg Tab PO 07/11/21 20:59 5 mg BID IONA Administration Insulin Aspart 0 units 06/11/21 16:33 06/14/21 08:38 Insulin Aspart 100 Units/Ml 3 Ml Pen SC 07/11/21 16:32 Not Given ACHS IONA Levothyroxine Sodium 125 mcg 06/12/21 06:30 06/14/21 05:58 Levothyroxine Sodium 125 Mcg Tablet PO 07/12/21 06:29 125 mcg DAILYBB IONA Administration Metoprolol Tartrate 25 mg 06/13/21 21:00 06/14/21 08:37 Metoprolol Tartrate 25 Mg Tab PO 07/13/21 20:59 25 mg BID IONA Administration Oxycodone/Acetaminophen 1 tab 06/12/21 13:00 06/13/21 18:13 Oxycodone/Acetaminophen 5mg/325mg Tab PO 06/25/21 19:56 1 tab Q4H PRN Administration Pain Pantoprazole Sodium 40 mg 06/12/21 09:00 06/14/21 08:37 Pantoprazole 40 Mg Tab PO 07/12/21 08:59 40 mg QAM IONA Administration Topiramate 100 mg 06/11/21 21:00 06/14/21 08:37 Topiramate 100 Mg Tab PO 07/11/21 20:59 100 mg BID IONA Administration Tramadol HCl 50 mg 06/11/21 16:33 06/12/21 19:48 Tramadol Hcl 50 Mg Tablet PO 07/11/21 16:32 50 mg Q8H PRN Administration pain NPO Date Last Intake of Solids: 06/13/21 Time Last Intake of Solids: 22:00 Past Medical History Medical History Anxiety Asthma Stable- rare albuterol inhaler use Bipolar disorder Depression Diabetes mellitus, type 2 diet controlled GERD (gastroesophageal reflux disease) Well controlled and stable History of anesthesia reaction Pt had one episode after three hour surgery in 2017- patient reports she had trouble waking up after her surgery, states she became violent and upset, hallucinated while waking up. Began to calm down once she heard her daughter's voice. History of COVID-19 12/2020 - fully recovered Hypothyroidism IBS (irritable bowel syndrome) Intermittent flares - takes Amitriptyline and Protonix for GI pain control Left bundle branch block Chronic Osteopenia Spinal stenosis Syncope Patient reports she "passed out" vs fell asleep- for about 2 hours on 05/14/21 and was treated at [facility] Room. Pt states she was sitting in chair and the clock said 3pm- next time she looked it was 5pm. Dx with "altered consciousness"- negative work up- feels patient possibly fell asleep Exercise / Class Metabolic Activity IV < 2 Limit ADL/Bedbound Past Family History Family History Family/Other No problems noted. Mother Colon cancer Dementia Father , at age 79 from mesothelioma. Mesothelioma Sister No problems noted. Sister No problems noted. Son No problems noted. Daughter No problems noted. Other Family history of diabetes mellitus in father Denies family history of Ovarian cancer Prostate cancer Myocardial infarction Breast cancer Past Surgical History Surgical History History of arthroscopy bl knees History of cholecystectomy History of colonoscopy History of hernia surgery WITH MESH History of hysterectomy Status post gastric banding surgery AND REMOVAL (POST OP BLEEDING/HX BLOOD TRANSFUSION WITH REMOVAL) Social History Smoking Status: Former smoker tobacco type: cigarettes Hx Alcohol Use: Yes Alcohol type: wine alcohol intake frequency: holidays/special occasions only Hx Substance Use: No substance use type: does not use Physical Exam Vital Signs Last Vital Signs Temp 37 C 06/14/21 10:27 Pulse 62 06/14/21 10:27 Resp 20 06/14/21 10:27 BP 155/76 H 06/14/21 10:27 Pulse Ox 98 06/14/21 10:27 Testing Laboratory Results 06/14/21 05:26 06/14/21 05:26 PT 9.9 Seconds (9.0-12.0) 06/11/21 11:25 INR 1.0 (0.9-1.1) 06/11/21 11:25 APTT 25.4 Seconds (21.0-31.0) 06/11/21 11:25 Hemoglobin A1c 5.6 % (4.5-5.6) 06/12/21 05:34 Blood Type O Positive 06/11/21 12:17 Antibody Screen NEGATIVE 06/11/21 12:17 06/14/21 07:31 POC Glucose 114 H Other Testing Electrocardiogram Date: 05/14/21 Findings: + NSR @ (81bpm) LBBB. When compared to EKG from Dec 04, 2019- nonspecific T wave abnormality no longer evident in inferior leads Chest X-Ray Date: 05/18/21 Cardiomegaly with no acute cardiopulmonary abnormality. Parenchymal changes as above suggest interstitial/fibrotic lung disease, possibly with superimposed emphysema. Clinical correlation will be required. (Sent message to PCP as FYI to follow up as outpatient) Echocardiogram Date: 12/12/19 EF: 50% LV Function: Low nl RWMA: + none Other Findings: + LVH (mild/concentric ) Abnormal (paradoxical) septal motion consistent with LBBB. Stress Test Date: 12/19/19 Type: nuclear No scintigraphic evidence of a prior myocardial infarction or stress-induced myocardial ischemia. No Lexiscan induced chest pain. No Lexiscan induced EKG changes. Normal left ventricular systolic function without wall motion abnormality. Left ventricular ejection fraction is 45-50 %. Repeat Echo (06/12/21) Nl LV size and systolic function 55-60%, No RWMA, mild conc LVH, septal wall motion consistent with bundle branch block, nl valves, mild pulmonary HTN (RVSP 40mmHg).
[2021-06-14] MEDS: busPIRone 5 MG TAB PO SCH ×2 (08:36→20:33)
[2021-06-14] MEDS: METOPROLOL TARTRATE 25 MG TAB PO SCH ×2 (08:37→20:34)
[2021-06-14] MEDS: TOPIRAMATE 100 MG TAB PO SCH ×2 (08:37→20:34)
[2021-06-14] MEDS: ASPIRIN 81 MG ECTAB PO SCH ×2 (08:37→20:33)
[2021-06-14] MEDS: PANTOprazole 40 MG TAB PO SCH (08:37)
[2021-06-14] MEDS: ATORVASTATIN 40 MG TAB PO SCH (08:37)
[2021-06-14] MEDS: INSULIN ASPART 100 UNITS/ML 3 ML PEN SC SCH ×4 (08:38→21:31)
[2021-06-14] MEDS ORDERED: fentaNYL citrate 100 MCG/2 ML VIAL ONE ×2 (10:46→12:15)
[2021-06-14] MEDS ORDERED: ONDANSETRON INJ 2 MG/ML 2 ML VIAL ONE (10:46)
[2021-06-14] MEDS ORDERED: PROPOFOL IV EMULSION 10 MG/ML 20 ML VIAL IV ONE (10:46)
[2021-06-14] MEDS ORDERED: MIDAZOLAM HCL 1 MG/ML 2ML VIAL ONE (10:46)
[2021-06-14] MEDS ORDERED: LIDOCAINE 2% 2 ML VIAL/AMP(20MG/ML) INFIL ONE (10:46)
[2021-06-14] MEDS ORDERED: DEXAMETHASONE SOD INJ 4 MG/ML VIAL ONE (10:46)
[2021-06-14] MEDS ORDERED: ceFAZolin 2000MG 2,000 MG/15 ML SYR IV ONE (10:58)
[2021-06-14] MEDS ORDERED: ONDANSETRON INJ 2 MG/ML 2 ML VIAL IV PRN (11:00)
[2021-06-14] MEDS ORDERED: ATROPINE SULFATE 0.1 MG/ML 10ML SYR IV PRN (11:00)
[2021-06-14] MEDS ORDERED: ePHEDrine sulfate 50 MG/ML AMP IV PRN (11:00)
--- NOTE | 2021-06-14 11:12 | History & Physical Bridge Note ---
Date of Service June 14, 2021 History & Physical Bridge Note I have examined the patient, reviewed the History & Physical and in the interval since the performance of the History & Physical I have noted the following changes of clinical significance: no changes noted
[2021-06-14] MEDS ORDERED: LACTATED RINGER'S 1,000 ML IV SCH (11:23)
[2021-06-14] MEDS ORDERED: EPINEPHrine INJ 1 MG/ML AMP ONE (11:37)
[2021-06-14] MEDS ORDERED: BUPIVACAINE 0.25% 30 ML VIAL ONE (11:38)
--- NOTE | 2021-06-14 12:48 | Operative Report ---
PG Post Operative Report Pre & Post Diagnosis Operation Date: 06/14/21 10:00 Pre-Op Diagnosis: Right Knee Closed Patellar Dislocation Post-Op Diagnosis: Right Knee Closed Patellar Dislocation I identified the patient and participated in the time-out.: Yes Procedure Operation Date: 06/14/21 10:00 Actual Procedures p Right Knee Extensor Mechanism and retinacular repair(Right) - Jason Gooden DO Surgeon Jason Gooden DO Licensed Practical Nurse Instructor None Estimated Blood Loss 10 Findings Consistent with Post-Op Diagnosis Specimens None Complications none Disposition Disposition: Recovery Room Indications Marichuy is a pleasant 71-year-old female who underwent a right knee replacement on June 10. She was in our outpatient protocol. She then went home. She was doing very well. Unfortunate the following morning she was noticing weakness. There was concerns for stroke so she came to the emergency room. She was found to have a small infarct on MRI scan. She was admitted to the hospital. While at the hospital she had a fall. She fell with her right knee hyperflexed behind her. She had increased pain and swelling of the right knee. I was notified immediately. X-rays were negative. I then saw her the following morning. After examination, I was concerned for a patella dislocation that was reduced as well was tearing of the retinacular repair. I did recommend operative fixation. She elected to proceed the following day. Description of Procedure On June 14 2021 Marichuy was brought down from her hospital room to the preoperative holding area. The operative extremity identified and signed. She was given 2 g of Ancef. She was taken back the operative room and laid on the table in supine position. She was put under general anesthesia. The right knee was prepped and draped in sterile fashion. A timeout was done. The patient and the operative extremity was properly identified. The previous incision was opened back up. The extensor mechanism was exposed. This was initially a subvastus approach. The retinacular repair had been torn. There is no signs of infection. A seroma was evacuated. The knee was then irrigated. There was a little bit of laxity with the MCL. Some deep sutures were placed near the MCL to help stabilize it. The extensor mechanism was then repaired with #1 Vicryl suture. I was able to get a nice repair. The knee was then flexed to about 110 degrees before there was any tension on the repair. The patella seemed stable. The wound was then irrigated. A deep fascial layer was closed with 2-0 Vicryl. Skin was closed with 2-0 Vicryl and modesta. She was then placed in a soft dressing and a knee immobilizer. She was then extubated and transferred to a hospital bed. She was taken to the post anesthesia care unit in stable condition. She tolerated the procedure well. I attest to the content of the Intraoperative Record and any orders documented therein. Any exceptions are noted below.
[2021-06-14] MEDS: fentaNYL citrate 100 MCG/2 ML VIAL IV PRN ×2 (12:58→13:06)
[2021-06-14] MEDS ORDERED: bisacodyL 10 MG SUPP PR PRN (13:52)
[2021-06-14] MEDS ORDERED: MAGNESIUM HYDROXIDE SUSP 30 ML UDC PO PRN (13:52)
[2021-06-14] MEDS ORDERED: SODIUM CHLORIDE 0.9% 1000ML 1,000 ML IV SCH (13:52)
[2021-06-14] MEDS ORDERED: NALOXONE HCL 0.4 MG/1 ML VIAL/CARP IV PRN (13:52)
[2021-06-14] MEDS ORDERED: METOCLOPRAMIDE HCL INJ 5 MG/ML 2 ML VIAL IV PRN (13:52)
--- NOTE | 2021-06-14 14:13 | Anesthesiology Progress Note ---
Date of Service June 14, 2021 Anesthesia Post Procedure Vital Signs Vital Signs: Temp Pulse Pulse Pulse Pulse Resp BP 06/14/21 14:00 36.9 C 62 18 06/14/21 13:45 36.8 C 60 18 143/82 H 06/14/21 13:30 60 15 06/14/21 13:20 36.5 C 55 L 12 06/14/21 13:10 56 L 15 06/14/21 13:00 57 L 12 06/14/21 12:50 62 16 06/14/21 12:41 36.4 C L 98 H 12 06/14/21 10:27 37 C 62 20 155/76 H 06/14/21 08:00 36.5 C 61 76 18 06/14/21 04:05 37.1 C 67 18 127/82 06/13/21 23:58 84 06/13/21 23:39 37.2 C 74 18 120/73 06/13/21 19:41 37.4 C 77 18 153/78 H 06/13/21 16:00 36.5 C 79 18 BP Pulse Ox 06/14/21 14:00 140/75 98 06/14/21 13:45 96 06/14/21 13:30 129/72 99 06/14/21 13:20 127/80 94 06/14/21 13:10 149/76 H 97 06/14/21 13:00 133/85 96 06/14/21 12:50 152/83 H 98 06/14/21 12:41 140/70 98 06/14/21 10:27 98 06/14/21 08:00 102/69 96 06/14/21 04:05 93 06/13/21 23:58 06/13/21 23:39 95 06/13/21 19:41 95 06/13/21 16:00 121/66 95 Pain Intensity Right Knee: Pain Intensity: 4 Transfer of Care Handoff Completed per policy Notes Mental Status: alert / awake / arousable and participated in evaluation Patient Amnestic to Procedure: Yes Nausea / Vomiting: adequately controlled Pain: adequately controlled Airway Patency, RR, SpO2: stable & adequate BP & HR: stable & adequate Hydration State: stable & adequate Anesthetic Complications: no major complications apparent and Pt Satisfied with anesthetic care
[2021-06-14] MEDS ORDERED: diphenhydrAMINE 50 MG/ML VIAL IV STA (14:23)
--- NOTE | 2021-06-14 14:24 | Hospitalist Progress Note ---
Date of Service June 14, 2021 Assessment & Plan (1) CVA (cerebral vascular accident): Plan: 71 y/o F Hx DM II, bipolar, hypothyroidism, ILD, osteoarthritis. The pt had her R knee replaced one day prior. She was feeling well and discharged shortly after surgery for home rehab. She woke up on the AM of admission with weakness in her R arm and likely her right leg as well. Imaging including a CT/CTA head/neck proved negative for acute abnormalities in the ER. Labs are unremarkable. After admission, brain MRI performed which showed acute to subacute lacunar infarct in the left thalamus measuring 11 mm She has gained some strength back in the right lower extremity but right upper extremity remains somewhat weak and has a sensory deficit She reports a history of atrial fibrillation in the past but no records are available to confirm this and her family can also not confirm this other than that the patient has stated this in the past. She has never been on anticoagulation but she is agreeable to doing so plan for loop recorder on 06/15/21 There is a possibility that this is a thromboembolic CVA, resume Eliquis when okay with ortho Echocardiogram shows preserved EF 55-60%, no wall motion abnormalities, septal motion consistent with bundle branch block, mild LVH, mild pulmonary hypertension, negative bubble Telemetry with sinus rhythm thus far, had brief atrial tachycardia this morning, plan for loop recorder Cholesterol is excellent, hemoglobin A1c is < 6.0% -Continue aspirin 81 mg p.o. once daily -Start atorvastatin 40 mg daily -PT/OT consultations appreciated-recommend rehab placement -Neurology consultation appreciated Plan: aspirin 81mg, Lipitor 40mg, BP control, Eliquis on discharge, loop recorder rehab on discharge and follow up with neurology in 6-8 weeks (2) Status post right knee replacement: Plan: Status post right TKA with Dr. Gooden on 06/10 Continue pain control with oxycodone but changed to 1 tablet every 4 hours -PT/OT consulted -With fall onto right knee on the evening of 06/12 in the hospital with some bleeding from the incision but the incision remains intact, some swelling around the knee Knee x-ray without fracture on 06/12 -Continue daily dressing and [place] wrap compression, ice packs -Consult orthopedic surgery given recent fall onto the knee with bleeding and swelling - Dr. Gooden took to OR today due to patella dislocation, no complications (3) Shortness of breath: Plan: With recent diagnosis of possible ILD Chest x-ray here with chronic interstitial changes similar to previous Follows with pulmonology and is set to have high-resolution CT scan of the chest and PFTs as an outpatient Not hypoxic no respiratory distress Continue albuterol as needed, lungs are clear again today (4) Diabetes mellitus, type 2: Plan: Hemoglobin A1c is < 6.0%, not really diabetic Continue Accu-Cheks, NovoLog supplemental insulin as needed She is not on any medications at home for this as it is well controlled (5) Left bundle branch block: Plan: Chronic Nuclear stress test in 2019 was without ischemia (6) IBS (irritable bowel syndrome): Plan: Continue amitriptyline (7) Hypothyroidism: Plan: TSH recently slightly elevated at 4.6 Continue home levothyroxine Follow-up with PCP (8) GERD (gastroesophageal reflux disease): Plan: Continue pantoprazole Has a history of lap band with the band eroding in the stomach resulting in several corrective surgeries and associated bleeding She reports being prone to getting ulcers -Avoid NSAIDs Okay for baby aspirin for now but planning on changing Eliquis as above (9) Bipolar disorder: Plan: Continue Topamax, buspirone very anxious and tearful today, resolved with Xanax 0.5mg, she takes this q8 PRN at home Plan: Disposition-continued stay on PCU, PT/OT recommending rehab-referrals will be needed, case management is involved Full code Loop recorder Sunday, rehab on /Sunday updated her son Adama today Admission and Anticipated Discharge Date Admission Date: June 12, 2021 Subjective patient tolerated OR today afterwards she started to get hysterical, triggered when she was brought a turkey sandwich for lunch, she does not like turkey she started crying, then said her right ankle was itching and she demanded I scratch her foot because she could not reach it she then ripped her oxygen off because it was itching she was crying more intensely because she 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, she shoved her tray away and spilled the coffee gave her Benadryl 25mg IV and Xanax 0.5mg PO and returned later to find her resting comfortably I updated her son about the plans for loop recorder and try to get her to rehab /Sunday, he agreed, answered his questions Review of Systems Review of Systems: All systems reviewed & are unremarkable except as noted in Subjective Respiratory: no cough and no dyspnea Cardiovascular: no chest pain Gastrointestinal: no abdominal pain, no nausea, no vomiting, no constipation and no diarrhea/loose stools Musculoskeletal: + joint pain (right knee) Integumentary: + pruritus (right leg and foot, face, back) Physical Exam Constitutional: well developed, well nourished and comfortable; no acute distress Neck: trachea midline, no thyromegaly Respiratory: normal respiratory effort, lungs clear to auscultation Cardiovascular: RRR, no murmur, no edema Gastrointestinal (Abdomen): normal bowel sounds, soft, nontender, no hepatosplenomegaly Musculoskeletal: Head/Neck/Chest: normocephalic, head atraumatic and neck supple; no chest tenderness Extremities: extremities normal to inspection and + abnormal strength (4/5 right test developer strength); no cyanosis, no clubbing and no petechiae Skin: no rashes, warm and dry Neurologic: CN's II-XI intact bilaterally, normal sensation to monofilament, moves all extremities, + focal motor deficit (reduced strength right hand) and awake; not confused Psychiatric: Orientation: alert and oriented x 3 Affect: + tearful affect and + labile affect Mood: + anxious mood Results & Data Results & Data ([facility]) Vital Signs (Past 12 Hours) Vital Signs Temp Pulse Pulse Pulse Pulse Resp BP 06/14/21 14:00 36.9 C 62 18 06/14/21 13:45 36.8 C 60 18 143/82 H 06/14/21 13:30 60 15 06/14/21 13:20 36.5 C 55 L 12 06/14/21 13:10 56 L 15 06/14/21 13:00 57 L 12 06/14/21 12:50 62 16 06/14/21 12:41 36.4 C L 98 H 12 06/14/21 10:27 37 C 62 20 155/76 H 06/14/21 08:00 36.5 C 61 76 18 06/14/21 04:05 37.1 C 67 18 127/82 BP Pulse Ox 06/14/21 14:00 140/75 98 06/14/21 13:45 96 06/14/21 13:30 129/72 99 06/14/21 13:20 127/80 94 06/14/21 13:10 149/76 H 97 06/14/21 13:00 133/85 96 06/14/21 12:50 152/83 H 98 06/14/21 12:41 140/70 98 06/14/21 10:27 98 06/14/21 08:00 102/69 96 06/14/21 04:05 93 Laboratory Results Laboratory Results - last 24 hr 06/13/21 06/13/21 06/14/21 16:24 20:34 05:26 WBC 7.94 RBC 4.19 L Hgb 12.7 Hct 38.5 MCV 91.9 MCH 30.3 MCHC 33.0 RDW Std Deviation 48.5 H RDW Coeff of Ese 14.4 Plt Count 197 MPV 10.0 Immature Gran % (Auto) 0.5 Neut % (Auto) 62.1 Lymph % (Auto) 22.0 [place] % (Auto) 9.9 Eos % (Auto) 5.2 Baso % (Auto) 0.3 Neut # (Auto) 4.93 Lymph # (Auto) 1.75 [place] # (Auto) 0.79 H Eos # (Auto) 0.41 Baso # (Auto) 0.02 Immature Gran # (Auto) 0.04 H Sodium Potassium Chloride Carbon Dioxide Anion Gap BUN Creatinine Est Cr Clr Drug Dosing Est GFR ( Amer) Est GFR (Non-Af Amer) BUN/Creatinine Ratio Glucose POC Glucose 98 112 H Calcium 06/14/21 06/14/21 06/14/21 05:26 07:31 12:47 WBC RBC Hgb Hct MCV MCH MCHC RDW Std Deviation RDW Coeff of Ese Plt Count MPV Immature Gran % (Auto) Neut % (Auto) Lymph % (Auto) [place] % (Auto) Eos % (Auto) Baso % (Auto) Neut # (Auto) Lymph # (Auto) [place] # (Auto) Eos # (Auto) Baso # (Auto) Immature Gran # (Auto) Sodium 137 Potassium 3.7 Chloride 111 H Carbon Dioxide 24 Anion Gap 2.0 L BUN 26 H Creatinine 0.97 Est Cr Clr Drug Dosing 58.0 Est GFR ( Amer) 67.6 Est GFR (Non-Af Amer) 58.3 BUN/Creatinine Ratio 27.3 H Glucose 95 POC Glucose 114 H 93 Calcium 8.6 06/14/21 14:17 WBC RBC Hgb Hct MCV MCH MCHC RDW Std Deviation RDW Coeff of Ese Plt Count MPV Immature Gran % (Auto) Neut % (Auto) Lymph % (Auto) [place] % (Auto) Eos % (Auto) Baso % (Auto) Neut # (Auto) Lymph # (Auto) [place] # (Auto) Eos # (Auto) Baso # (Auto) Immature Gran # (Auto) Sodium Potassium Chloride Carbon Dioxide Anion Gap BUN Creatinine Est Cr Clr Drug Dosing Est GFR ( Amer) Est GFR (Non-Af Amer) BUN/Creatinine Ratio Glucose POC Glucose 78 Calcium Medications Administered Current Inpatient Medications Albuterol (Albuterol Hfa 8 Gm Inhaler) 1 puffs INH Q6H PRN PRN Reason: Shortness Of Breath Stop: 07/11/21 16:32 Alprazolam (Alprazolam 0.5 Mg Tablet) 0.5 mg PO Q8H PRN PRN Reason: Anxiety Stop: 07/13/21 08:44 Last Admin: 06/13/21 21:03 Dose: 0.5 mg Documented by: Amitriptyline HCl (Amitriptyline Hcl 25 Mg Tab) 25 mg PO HS [facility] Stop: 07/11/21 20:59 Last Admin: 06/13/21 21:05 Dose: 25 mg Documented by: Aspirin (Aspirin 81 Mg Ectab) 81 mg PO BID [facility] Stop: 07/14/21 20:59 Atorvastatin Calcium (Atorvastatin 40 Mg Tab) 40 mg PO QAM INOA Stop: 07/13/21 08:59 Last Admin: 06/14/21 08:37 Dose: 40 mg Documented by: Atropine Sulfate (Atropine Sulfate 0.1 Mg/Ml 10ml Syr) 0.5 mg IV Q1M PRN PRN Reason: PACU Use-HR<40 &/or Bradycardi Stop: 06/14/21 19:00 Bisacodyl (Bisacodyl 10 Mg Supp) 10 mg PA DAILY PRN PRN Reason: Constipation Stop: 07/14/21 13:51 Buspirone HCl (Buspirone 5 Mg Tab) 5 mg PO BID IONA Stop: 07/11/21 20:59 Last Admin: 06/14/21 08:36 Dose: 5 mg Documented by: Dexamethasone (Dexamethasone 4 Mg Tab) 8 mg PO TODAY@08 IONA Dextrose (Dextrose 50% 50 Ml Syringe) 25 - 50 ml IV UD PRN; Protocol PRN Reason: Hypoglycemia Protocol Stop: 07/11/21 16:32 Diphenhydramine HCl (Diphenhydramine 50 Mg/Ml Vial) 25 mg IV NOW STA Stop: 06/14/21 14:24 Docusate Sodium (Docusate Sodium 100 Mg Cap) 100 mg PO BID IONA Stop: 07/14/21 20:59 Ephedrine Sulfate (Ephedrine Sulfate 50 Mg/Ml Amp) 5 mg IV Q5M PRN PRN Reason: PACU Use Only-SBP<90 mmHg Stop: 06/14/21 19:00 Fentanyl Citrate (Fentanyl Citrate 100 Mcg/2 Ml Vial) 50 mcg IV Q5M PRN PRN Reason: PACU Use Only-Pain Stop: 06/14/21 19:00 Last Admin: 06/14/21 13:06 Dose: 50 mcg Documented by: Glucagon (Glucagon For Inj 1 Mg Vial) 1 mg SQ UD PRN; Protocol PRN Reason: Hypoglycemia Protocol Stop: 07/11/21 16:32 Glucose (Glucose 10 Tabs/Tube) 4 - 8 tabs PO UD PRN; Protocol PRN Reason: Hypoglycemia Protocol Stop: 07/11/21 16:32 Glucose (Glucose 40% Gel 15 Gm Tube) 15 - 30 gm PO UD PRN; Protocol PRN Reason: Hypoglycemia Protocol Stop: 07/11/21 16:32 Hydromorphone HCl (Hydromorphone Inj 0.5 Mg/0.5 Ml Syr) 0.5 mg IV Q4H PRN PRN Reason: Pain or Pre PT Stop: 06/28/21 13:51 Lactated Ringer's (Lr) 1,000 mls @ 0 mls/hr IV .Q0M IONA Stop: 07/14/21 11:22 Cefazolin Sodium (Ancef 2000mg) 2,000 mg in 15 mls @ 3.75 mls/min IV Q8H IONA; Protocol Stop: 06/15/21 04:03 Sodium Chloride (Nss 1000ml) 1,000 mls @ 100 mls/hr IV .Q10H IONA Stop: 06/15/21 06:00 Insulin Aspart (Insulin Aspart 100 Units/Ml 3 Ml Pen) 0 units SC ACHS IONA Stop: 07/11/21 16:32 Last Admin: 06/14/21 08:38 Dose: Not Given Documented by: Ketorolac Tromethamine (Ketorolac Tromethamine 15 Mg/Ml Vial) 15 mg IV Q6H [facility] Stop: 06/15/21 10:01 Levothyroxine Sodium (Levothyroxine Sodium 125 Mcg Tablet) 125 mcg PO DAILYBB [facility] Stop: 07/12/21 06:29 Last Admin: 06/14/21 05:58 Dose: 125 mcg Documented by: Magnesium Hydroxide (Magnesium Hydroxide Susp 30 Ml Udc) 30 ml PO Q6H PRN PRN Reason: Constipation Stop: 07/14/21 13:51 Metoclopramide HCl (Metoclopramide Hcl Inj 5 Mg/Ml 2 Ml Vial) 10 mg IV Q6H PRN PRN Reason: Nausea And Vomiting Stop: 07/14/21 13:51 Metoprolol Tartrate (Metoprolol Tartrate 25 Mg Tab) 25 mg PO BID [facility] Stop: 07/13/21 20:59 Last Admin: 06/14/21 08:37 Dose: 25 mg Documented by: Miscellaneous (Carbohydrates For Hypoglycemia ) 15 - 30 gm PO UD PRN PRN Reason: Hypoglycemia Protocol Stop: 07/11/21 16:32 Miscellaneous Information (Pharmacist Discharge Med Rec Consult) 1 ea N/A UD PRN PRN Reason: Consult Stop: 07/11/21 16:32 Multivitamins (Multivitamin Tab) 1 tab PO QAM [facility] Stop: 07/15/21 08:59 Naloxone HCl (Naloxone Hcl 0.4 Mg/1 Ml Vial/Carp) 0.1 mg IV Q5M PRN PRN Reason: Oversedation/Resp Depression Stop: 07/14/21 13:51 Ondansetron HCl (Ondansetron Inj 2 Mg/Ml 2 Ml Vial) 4 mg IV ONCE PRN PRN Reason: PACU Use Only-Nausea/Vomiting Stop: 06/14/21 19:00 Oxycodone/Acetaminophen (Oxycodone/Acetaminophen 5mg/325mg Tab) 1 tab PO Q4H PRN PRN Reason: Pain Stop: 06/25/21 19:56 Last Admin: 06/13/21 18:13 Dose: 1 tab Documented by: Pantoprazole Sodium (Pantoprazole 40 Mg Tab) 40 mg PO QAM IONA Stop: 07/12/21 08:59 Last Admin: 06/14/21 08:37 Dose: 40 mg Documented by: Sennosides (Senna 8.6 Mg Tab) 17.2 mg PO HS IONA Stop: 07/14/21 20:59 Topiramate (Topiramate 100 Mg Tab) 100 mg PO BID IONA Stop: 07/11/21 20:59 Last Admin: 06/14/21 08:37 Dose: 100 mg Documented by: Tramadol HCl (Tramadol Hcl 50 Mg Tablet) 50 mg PO Q8H PRN PRN Reason: pain Stop: 07/11/21 16:32 Last Admin: 06/12/21 19:48 Dose: 50 mg Documented by: PG Care Time/CCT Total # of Minutes Spent Total Time Spent with Patient: Total time spent is greater than 50% in coordi nation of care (as documented) at patient's floor/unit and/or counseling patient: Coding Level of Care Code 44740 Subseq Hosp Care Lvl 3 Diagnoses CVA (cerebral vascular accident) I63.9 CVA mechanism: unspecified Status post right knee replacement Z96.651 Shortness of breath R06.02 Diabetes mellitus, type 2 E11.9 Left bundle branch block I44.7 IBS (irritable bowel syndrome) K58.9 Hypothyroidism E03.9 GERD (gastroesophageal reflux disease) K21.9 Bipolar disorder F31.9 (1) CVA (cerebral vascular accident) CVA mechanism: unspecified Qualified Code(s): I63.9 - Cerebral infarction, unspecified
[2021-06-14] MEDS: HYDROmorphone INJ 0.5 MG/0.5 ML SYR IV PRN ×2 (14:28→20:18)
[2021-06-14] MEDS: ALPRAZolam 0.5 MG TABLET PO PRN ×2 (14:28→22:44)
[2021-06-14] MEDS: KETOROLAC TROMETHAMINE 15 MG/ML VIAL IV SCH ×2 (16:57→22:45)
[2021-06-14] MEDS ORDERED: NURSING DECISION MEDICATION ONE (17:50)
[2021-06-14] MEDS: oxyCODONE/ACETAMINOPHEN 5mg/325mg TAB PO PRN ×2 (19:11→22:44)
[2021-06-14] MEDS: ceFAZolin 2000MG 2,000 MG/15 ML SYR IV SCH (19:38)
[2021-06-14] MEDS: DOCUSATE SODIUM 100 MG CAP PO SCH (20:33)
[2021-06-14] MEDS: AMITRIPTYLINE HCL 25 MG TAB PO SCH (20:35)
[2021-06-14] MEDS ORDERED: SENNA 8.6 MG TAB PO SCH (21:00)
[2021-06-15] MEDS: oxyCODONE/ACETAMINOPHEN 5mg/325mg TAB PO PRN ×3 (03:49→14:23)
[2021-06-15] MEDS: ceFAZolin 2000MG 2,000 MG/15 ML SYR IV SCH (03:50)
[2021-06-15] MEDS: KETOROLAC TROMETHAMINE 15 MG/ML VIAL IV SCH ×2 (03:50→10:09)
[2021-06-15] MEDS: LEVOTHYROXINE SODIUM 125 MCG TABLET PO SCH (05:49)
--- NOTE | 2021-06-15 06:31 | Orthopedic Progress Note ---
Date of Service June 15, 2021 Assessment & Plan (1) Closed patellar dislocation: Overall she is doing well today. She is not having too much pain in the right knee. I do want her in the knee immobilizer at all times. She can be weightbearing as tolerated in the knee immobilizer. She will be seen by physical therapy and Occupational Therapy for ambulation. The knee immobilizer can be removed to change the dressings or if ultrasound testing is needed. We will start range of motion of the knee at 2 weeks and she will likely be in a knee immobilizer while ambulating for a total of 6 weeks. I recommend aspirin 81 mg twice a day for DVT prophylaxis, unless something else is needed given her current medical condition. Reagan Benedict was seen and examined at bedside this morning. Overall she is doing fairly well. She is not having too much pain in the right knee. She is able to do a straight leg raise and she is happy about that. She has no new complaints.. Review of Systems All systems reviewed & are unremarkable except as noted in HPI & below. Physical Exam On physical examination of the right knee, the knee immobilizer is in place. She has active dorsiflexion plantarflexion of her right ankle. Sensation is intact throughout.. Results & Data Results & Data Laboratory Results . Diagnostic Findings . PG Care Time/CCT Total # of Minutes Spent Total Time Spent with Patient: Total time spent is greater than 50% in coordination of care (as documented) at patient's floor/unit and/or counseling patient: Coding Level of Care Code 19346 Post Operative Follow-Up Diagnoses Closed patellar dislocation S83.006A
[2021-06-15] MEDS: ALPRAZolam 0.5 MG TABLET PO PRN ×2 (07:13→15:46)
[2021-06-15] MEDS: HYDROmorphone INJ 0.5 MG/0.5 ML SYR IV PRN (07:13)
[2021-06-15] MEDS: DOCUSATE SODIUM 100 MG CAP PO SCH (07:14)
[2021-06-15] MEDS: ASPIRIN 81 MG ECTAB PO SCH (07:14)
[2021-06-15] MEDS: TOPIRAMATE 100 MG TAB PO SCH (07:15)
[2021-06-15] MEDS: busPIRone 5 MG TAB PO SCH (07:15)
[2021-06-15] MEDS: PANTOprazole 40 MG TAB PO SCH (07:15)
[2021-06-15] MEDS: ATORVASTATIN 40 MG TAB PO SCH (07:16)
[2021-06-15] MEDS: METOPROLOL TARTRATE 25 MG TAB PO SCH (07:25)
[2021-06-15] MEDS: INSULIN ASPART 100 UNITS/ML 3 ML PEN SC SCH ×3 (07:31→16:25)
[2021-06-15] MEDS ORDERED: dexAMETHasone 4 MG TAB PO SCH (08:00)
[2021-06-15] MEDS ORDERED: MULTIVITAMIN TAB PO SCH (09:00)
[2021-06-15] MEDS ORDERED: LIDOCAINE 1% LOCAL 20 ML VIAL ONE (12:41)
--- NOTE | 2021-06-15 14:50 | Electrophysiology Report ---
Date of Service June 15, 2021 Electrophysiology Procedure Electrophysiology Procedure Report Insert length the procedure performed: Implantation of patient activated loop recorder Staff dressing room attendant: Derrell Hardin MD Indication: Cryptogenic stroke Procedure in detail: The patient was informed of the risks benefits and alternatives to the intended procedure. They understood such and wished to proceed. The patient was taken to the electrophysiology suite where the upper chest area was prepped and draped in the usual sterile fashion. An area left lateral to the sternum in the 4th intercostal space was subsequently anesthetized using subcutaneous administration of lidocaine solution. A small incision was made at this site and implantation of the loop recorder was accomplished using a proprietary implantation tool. The small incision was subsequently closed using a single 4 0 Vicryl suture. Steri-Strips and a sterile dressing were then applied. The patient tolerated the procedure well. There were no immediate complications. The device was tested noninvasively prior to conclusion of the procedure. Equipment used: Patient activated loop recorder: Volunteer [employer] Specialist [employer]. Model number [id number]. Serial number [id number] Electrophysiology codes Implantable Monitors Procedure 1: Implantable Monitors: [id number] Loop Recorder Implant
[2021-06-15] MEDS ORDERED: STROKE PATIENT DISCHARGE STA (15:49)
--- NOTE | 2021-06-15 16:05 | Discharge Summary ---
Date of Service June 15, 2021 Admission HPI Per Admitting Provider 71 y/o F Hx DM II, bipolar, hypothyroidism, ILD, osteoarthritis. The pt had her R knee replaced one day prior. She was feeling well and discharged shortley after surgery for home rehab. She woke up this AM with weakness in her R arm and likely her leg as well. She states she was able to ambulate the prior day and that this was more difficult today. Imaging including a CT/CTA head/neck proved negative for acute abnormalities. Labs are unremarkable. Complicating the above, she recently received steroid injections into he shoulders BL. Her distal strength is maintained in the upper extrem and we cannot fully assess lower extremity strength as she is limited in her ROM and force by pain. Additionally, she has documented lumbar stenosis which may affect her LE strength. PMH: 1) Osteoarthritis 2) Bipolar 3) Obese 4) Hypothyroid 5) DM II 6) Exertional dyspnea - recent diagnosis of ILD - possibly due to asbestosis. The diagnosis is in progress. 7) GERD 8) LBBB - preop cardio exam did not demonstrate evidence of ischemia 9) Lumbar stenosis Surgical: 1) Gastric band - this was complicated by erosion and required surgical removal and then additional surgery for debris removal. 2) R TKA 06/10/21 3) Cholecystectomy 4) Hysterectomy Social: Does not drink or smoke Family: Mother is alive age 99 Father age 76 mesothelioma Principal Diagnosis Acute CVA, left thalamus causing right weakness, poor coordination, mild aphasia Right patellar dislocation, s/p repair Possible atrial fibrillation Bipolar disorder Discharge Exam Constitutional well developed, well nourished and comfortable; no acute distress Neck trachea midline, no thyromegaly Respiratory normal respiratory effort, lungs clear to auscultation Cardiovascular RRR, no murmur, no edema Gastrointestinal (Abdomen) normal bowel sounds, soft, nontender, no hepatosplenomegaly Musculoskeletal Head/Neck/Chest: normocephalic, head atraumatic and neck supple; no chest tenderness Extremities: extremities normal to inspection and + abnormal strength (4/5 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 specialist 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 strength); no cyanosis, no clubbing and no petechiae Skin no rashes, warm and dry Neurologic CN's II-XI intact bilaterally, normal sensation to monofilament, moves all extremities, + focal motor deficit (reduced strength right hand) and awake; not confused Psychiatric Orientation: alert and oriented x 3 Mood: + anxious mood Discharge Data Allergies Allergy/AdvReac Type Severity Reaction Status Date / Time latex Allergy Unknown Rash Verified 06/11/21 13:48 Penicillins Allergy Unknown PT DOES Verified 06/11/21 13:48 NOT REMEMBER, REACTION WAS TEENAGER Sulfa (Sulfonamide Allergy Unknown RASH Verified 06/11/21 13:48 Antibiotics) morphine AdvReac Unknown Anxiety Verified 06/11/21 13:48 Consultations 06/11/21 13:00 ED Decision to Admit Stat 06/12/21 08:16 Consult Neurology Routine 06/12/21 13:19 Consult Cardiology Routine 06/12/21 20:15 Consult Orthopedic Surgery Routine Procedures Performed Operation Date: 06/14/21 10:00 Actual Procedures p Right Knee Extensor Mechanism Repair(Right) - Jason Huff DO Operation Date: 06/15/21 11:00 Actual Procedures p Implant Cardiac Event Recorder - Brady Hardin MD Ordered Studies 06/11/21 11:44 CT angio head w con Stat CT angio neck with con Stat CT head/brain wo con Stat 06/11/21 16:33 MR brain wo con Routine 06/15/21 US arterial duplex LE RT Urgent 06/15/21 09:07 CL Cath Imgs for PACS use only Stat Hospital Course (1) CVA (cerebral vascular accident): 71 y/o F Hx DM II, bipolar, hypothyroidism, ILD, osteoarthritis. The pt had her R knee replaced one day prior. She was feeling well and discharged shortly after surgery for home rehab. She woke up on the AM of admission with weakness in her R arm and likely her right leg as well. Imaging including a CT/CTA head/neck proved negative for acute abnormalities in the ER. Labs are unremarkable. After admission, brain MRI performed which showed acute to subacute lacunar infarct in the left thalamus measuring 11 mm She has gained some strength back in the right lower extremity but right upper extremity remains somewhat weak and has a sensory deficit She reports a history of atrial fibrillation in the past but no records are available to confirm this and her family can also not confirm this other than that the patient has stated this in the past. She has never been on anticoagulation but she is agreeable to doing so started on Eliquis 5mg BID, continue this for time being while afib is worked up further loop recorder placed on 06/15/[address] Hardin, will help determine if she has paroxysmal afib Echocardiogram shows preserved EF 55-60%, no wall motion abnormalities, septal motion consistent with bundle branch block, mild LVH, mild pulmonary hypertension, negative bubble Telemetry with sinus rhythm thus far, had brief atrial tachycardia/SVT on 06/13 Cholesterol is excellent, hemoglobin A1c is < 6.0% -Continue aspirin 81 mg p.o. once daily -Start atorvastatin 40 mg daily -PT/OT consultations appreciated-recommend rehab placement -Neurology consultation appreciated Plan: aspirin 81mg, Lipitor 40mg, BP control with metoprolol 25mg BID, Eliquis on discharge, loop recorder rehab on discharge and follow up with neurology in 6-8 weeks (2) Status post right knee replacement: Status post right TKA with Dr. Huff on 06/10 Continue pain control with oxycodone but changed to 1 tablet every 4 hours -PT/OT consulted -With fall onto right knee on the evening of 06/12 in the hospital with some bleeding from the incision but the incision remains intact, some swelling around the knee Knee x-ray without fracture on 06/12 -Continue daily dressing and [place] wrap compression, ice packs -Consult orthopedic surgery given recent fall onto the knee with bleeding and swelling - Dr. Huff took to OR 06/14 due to patella dislocation, no complications per Dr. Huff: I do want her in the knee immobilizer at all times. She can be weightbearing as tolerated in the knee immobilizer. She will be seen by physical therapy and Occupational Therapy for ambulation. The knee immobilizer can be removed to change the dressings or if ultrasound testing is needed. We will start range of motion of the knee at 2 weeks and she will likely be in a knee immobilizer while ambulating for a total of 6 weeks. (3) Shortness of breath: With recent diagnosis of possible ILD Chest x-ray here with chronic interstitial changes similar to previous Follows with pulmonology and is set to have high-resolution CT scan of the chest and PFTs as an outpatient Not hypoxic no respiratory distress Continue albuterol as needed, lungs are clear while inpatient (4) Diabetes mellitus, type 2: Hemoglobin A1c is < 6.0%, not really diabetic Continue Accu-Cheks, NovoLog supplemental insulin as needed She is not on any medications at home for this as it is well controlled (5) Left bundle branch block: Chronic Nuclear stress test in 2019 was without ischemia (6) IBS (irritable bowel syndrome): Continue amitriptyline (7) Hypothyroidism: TSH recently slightly elevated at 4.6 Continue home levothyroxine Follow-up with PCP (8) GERD (gastroesophageal reflux disease): Continue pantoprazole Has a history of lap band with the band eroding in the stomach resulting in several corrective surgeries and associated bleeding She reports being prone to getting ulcers -Avoid NSAIDs Okay for baby aspirin (9) Bipolar disorder: Continue Topamax, buspirone very anxious and tearful at times, mood can be very labile, slightly histrionic Xanax 0.5mg q12 PRN, she has prescriptions for this as outpatient Disposition- [facility] Total Time Total Time Spent Total Time Spent (In Minutes): 34 Total Time Includes: Examination of the Patient, Discharge Planning, Medication Reconciliation and Communication With Other Providers Discharge Plan Discharge Items Patient Disposition: Transfer Inpatient Rehab Fac Reason For Visit: CVA Discharge Diagnosis: Acute CVA, left thalamus s/p Right TKA with patella dislocation from fall, s/p repair on 06/14 Condition on Discharge: Good Goals: complete rehab, improve strength and return to home Activity: Per Instructions section Activity Comment: see orthopedic instructions from Dr. Huff Non-emergency contact: Primary Care Provider Call non-emergency contact if: you have any medication questions Follow-up/Referrals: Sherman Mayorga MD [Primary Care Provider] - Diet: Carb Consistent or DM2 Addtl Attending Provider Instructions: Medications: - ELIQUIS: 5mg twice a day, started for stroke and patient giving a history of having atrial fibrillation although could not be confirmed in records, used to live in [place] - ASPIRIN: 81mg daily for stroke prevention - METOPROLOL: 25mg twice a day, heart rate well controlled, for potential atrial fibrillation as well as paroxysmal SVT - LIPITOR: 40mg daily for stroke prevention - XANAX: 0.5mg q12 as needed for anxiety, prone to panic attacks, was prescribed this as outpatient - SENOKOT: use while on narcotics, can try Miralax daily if no BM in 2-3 days see discharge summary for details of hospitalization goal is to get stronger over 7-10 days and return home Risk Factors for Stroke: You can reduce your chances of stroke by working with your medical provider to adopt a healthy lifestyle. Some specific ways to lower your chance of stroke are: * If you are a smoker, now is the time to stop smoking cigarettes * If you are diabetic, improve the control of your blood sugars * Avoid excessive amounts of alcohol * Control high blood pressure * Lose weight if you are overweight * Be sure to lead an active lifestyle * Eat a healthy diet low in salt, cholesterol and fat You should know about other risk factors for stroke that you are unable to control. These include: * Age 55 years or older * Male gender * Certain racial groups: , or / * Family History of Stroke, Mini stroke or Heart Attack * Sickle Cell Disease Follow Up: It is important for you to keep your follow up appointments with your medical provider. Who to Call and When: Medical Emergencies: Call 911 immediately if you experience any of the following warning signs and symptoms of Stroke: * Sudden numbness or weakness of the face, arm or leg, especially on one side of the body * Sudden confusion, trouble speaking or understanding * Sudden trouble seeing in one or both eyes * Sudden trouble walking, dizziness, loss of balance or coordination * Sudden severe headache with no cause Do not delay calling 911 if you experience any warning signs or symptoms of a stroke. Delay in seeking medical attention may affect what treatments can be given to you. . Addtl Food Adviser Provider Instructions: DR. HUFF, ORTHOPEDICS concerning right knee: I do want her in the knee immobilizer at all times. She can be weightbearing as tolerated in the knee immobilizer. She will be seen by physical therapy and Occupational Therapy for ambulation. The knee immobilizer can be removed to change the dressings or if ultrasound testing is needed. We will start range of motion of the knee at 2 weeks and she will likely be in a knee immobilizer while ambulating for a total of 6 weeks. Follow up with Dr. Huff in 2 weeks please. Pending Studies at Discharge: No Stand-Alone Forms: My [facility] Skilled Items Patient informed of condition?: Yes DNR: No Discharge Level of Care: Acute rehab Communicable Disease: No Discharge Prognosis: Stable Lines: None Urinary Catheter: No Medications and DC Order Prescriptions: New atorvastatin 40 mg Tablet 40 mg PO QAM 30 Days Qty: 30 RF: 3 sennosides [Senokot] 8.6 mg Tablet 17.2 mg PO HS 30 Days Qty: 60 RF: 0 alprazolam [Xanax] 0.5 mg Tablet 0.5 mg PO Q12 PRN (Reason: anxiety) Qty: 20 RF: 0 metoprolol tartrate 25 mg Tablet 25 mg PO BID 30 Days Qty: 60 RF: 3 Eliquis 5 mg tablet 5 mg PO BID Qty: 60 RF: 3 aspirin 81 mg Tablet,Delayed Release (Dr/Ec) 81 mg PO DAILY 30 Days Qty: 30 RF: 0 Continued pantoprazole 40 mg tablet,delayed release (DR/EC) 40 mg PO QAM Qty: 90 RF: 3 levothyroxine 125 mcg tablet 125 mcg PO QAM Qty: 90 RF: 1 (DME) OneTouch Ultra Test Strip See Rx Instructions .Route Qty: 100 RF: 3 (DME) blood-glucose meter [Snapteeuch Ultra2 Meter] Kit See Rx Instructions .Route Qty: 1 RF: 0 (DME) lancets [TyRx PharmaTouch Delica Lancets] 33 gauge misc See Rx Instructions .Route Qty: 100 RF: 3 oxycodone-acetaminophen [Percocet] 5-325 mg tablet 1 tab PO Q6H PRN (Reason: pain) Qty: 30 RF: 0 ondansetron HCl [Zofran] 4 mg tablet 4 mg PO Q8H PRN (Reason: nausea and vomiting) Qty: 10 RF: 0 tramadol 50 mg tablet 50 mg PO Q8H PRN (Reason: pain) Qty: 30 RF: 0 topiramate 100 mg tablet 100 mg PO BID RF: 0 buspirone 5 mg tablet 5 mg PO BID RF: 0 amitriptyline 25 mg tablet 25 mg PO HS RF: 0 Discontinued ibuprofen [Advil] 200 mg Tablet 200 mg PO Q6H PRN (Reason: Pain) RF: 0 Discharge Orders: Discharge Order (Routine); Ordered 06/15/21 Ordered By: Nilesh Cordero Admission Data Admit Date/Time: 06/12/21 12:59 Attending Provider: Nilesh Cordero Admit Provider: Juan C Arevalo Primary Care Provider: Sherman Mayorga. Other Providers: Juan C Arevalo ; Jason Rizo ; Jamie Morrow ; Giacomo,Jason A ; [facility] Coding Level of Care Code D/C DAY MANAGEMENT >30 MINS Diagnoses CVA (cerebral vascular accident) I63.9 CVA mechanism: unspecified Status post right knee replacement Z96.651 Shortness of breath R06.02 Diabetes mellitus, type 2 E11.9 Left bundle branch block I44.7 IBS (irritable bowel syndrome) K58.9 Hypothyroidism E03.9 GERD (gastroesophageal reflux disease) K21.9 Bipolar disorder F31.9
== END 2021-06-15 19:54 | DRG 41 ==
LOC: ED 11:42 → 2S 11:42 → SUATTDRO 13:32 → 2S 15:22 → SUATTDRO 06-12 12:59

== ENCOUNTER 2022-01-05 15:47 | Inpatient (IN) ==
[2022-01-05 16:26] LABS: Basophils # (auto) 0.02 K/uL (0-0.2); Basophils % (auto) 0.2 %; Eosinophils # (auto) 0.65 K/uL (0-0.5); Eosinophils % (auto) 6.9 %; Hematocrit (blood only) 42.5 % (37-47); Hemoglobin 14.1 g/dL (12.0-16.0); Immature Granulocytes # (auto) 0.05 K/uL (0.00-0.02); Immature Granulocytes % (auto) 0.5 %; Lymphocytes # (auto) 2.02 K/uL (1.2-3.4); Lymphocytes % (auto) 21.5 %; Mean Corpuscular Hemoglobin 29.4 pg (25-34); Mean Corpuscular Hgb Conc 33.2 g/dL (32-36); Mean Corpuscular Volume 88.5 fL (80-100); Mean Platelet Volume 10.8 fL (7.4-10.4); Monocytes # (auto) 0.69 K/uL (0.11-0.59); Monocytes % (auto) 7.4 %; Neutrophils # (auto) 5.95 K/uL (1.4-6.5); Neutrophils % (auto) 63.5 %; Platelet Count 265 K/uL (130-400); RDW Coefficient of Variation 14.6 % (11.5-14.5); RDW Standard Deviation 47.1 fL (36.4-46.3); White Blood Count 9.38 K/uL (4.8-10.8)
[2022-01-05 16:41] LABS: INR 1.2 (0.9-1.1); Partial Thromboplastin Ratio 1.1; Partial Thromboplastin Time 29.1 Seconds (21.0-31.0); Prothrombin Time 12.3 Seconds (9.0-12.0)
--- NOTE | 2022-01-05 16:42 | XRay Report ---
XR chest 1V portable CLINICAL HISTORY: Shortness of breath. COMPARISON STUDY: Chest radiograph December 16, 2021. High-resolution chest CT December 06, 2021. FINDINGS: No pneumothorax or pleural effusion is noted. Cardiomediastinal silhouette is stable. Inter stitial thickening is similar to prior exams. This favors interstitial lung disease. No superimposed consolidation. No evidence for pulmonary edema. IMPRESSION: Stable interstitial thickening suggestive of interstitial lung disease. No superimposed consolidation identified. ACT 112: Negative or not required by law. Electronically signed by: Parminder Ayala M.D. 01/05/2022 4:41 PM
[2022-01-05 16:58] LABS: Troponin I < 0.03 ng/ml (0-0.04)
[2022-01-05 16:59] LABS: Alanine Aminotransferase 22 U/L (7-52); Albumin Globulin Ratio 0.9 (0.9-2); Albumin Level 3.7 gm/dl (3.4-5.0); Alkaline Phosphatase 115 U/L (34-104); Anion Gap 9 (3-11); Aspartate Aminotransferase 29 U/L (13-39); BUN Creatinine Ratio 12.8 (10-20); Bilirubin,Total 0.6 mg/dl (0.2-1.0); Blood Urea Nitrogen 11 mg/dl (6-23); Calcium 9.2 mg/dl (8.5-10.1); Carbon Dioxide 23 mmol/L (21-32); Chloride 106 mmol/L (98-107); Est GFR (African American) 78.2 ml/min; Est GFR (Non-African American) 67.5 ml/min; Globulin 3.9 gm/dl (2.5-4.0); Glucose 95 mg/dl (70-99(Fasting)); Magnesium 1.9 mg/dl (1.7-2.4); Potassium 3.9 mmol/L (3.5-5.1); Sodium 138 mmol/L (136-145); Total Protein 7.6 gm/dl (6.0-8.3)
[2022-01-05] MEDS ORDERED: ALBUT/IPRATROP 3MG/0.5MG NEB 3 ML VIAL NEB STA (17:19)
--- NOTE | 2022-01-05 17:44 | Emergency Department Note ---
Impression & Plan SOB (shortness of breath), Weakness, Pulmonary fibrosis, Failure of outpatient treatment ED Provider Note NAME: MOHINI AMEZCUA AGE: 71 SEX: F : 1950 ARRIVES VIA: Walk-In INFORMANT: [Patient] ED PROVIDER(S): [Jose Maria Grossman MD] CHIEF COMPLAINT: Shortness of breath HISTORY OF PRESENT ILLNESS: The patient is a 71-year-old female presents to the ER with shortness of breath. She has been having difficulty for about 2 weeks. For the first time, 2 weeks ago, she was placed on oxygen to be used when active. Since the beginning of this week, for the last 4 days, she has been using oxygen all the time. She is on a cough medication. She is using an inhaler. The patient does have underlying lung disease, she has fibrosis. She has never felt this poorly though before. The patient is fatigued, she is tired, she is sleeping all the time and more short of breath. No fever. She felt she should be seen, she is here for evaluation. The patient is on Xarelto, she has never had a PE to her knowledge. No chest pain with this complaint of shortness of breath. REVIEW OF SYSTEMS: See HPI for pertinent positives and negatives. A total of ten systems were reviewed and were otherwise negative. PMHx/PSHx: See Below SOCIAL HISTORY: See Below. PHYSICAL EXAM: GENERAL: Patient is in no acute distress. HEENT: No acute trauma, normocephalic atraumatic, mucous membranes moist, no nasal congestion, no scleral icterus. NECK: No stridor, no adenopathy, no meningismus, trachea is midline. LUNGS: Crackles heard bilaterally, no respiratory distress, breath sounds equal. HEART: Without murmurs gallops or rubs, regular rate and rhythm. ABDOMEN: Soft, nontender, bowel sounds positive, no hernias, no peritonitis. EXTREMITIES: No cyanosis or edema, full range of motion of all the joints without pain or difficulty, no signs for acute trauma. NEUROLOGIC: Oriented x 3, no acute motor or sensory deficits, no focal weakness. SKIN: No rash, no jaundice, no diaphoresis. DIFFERENTIAL DIAGNOSIS: Reactive airway disease, influenza, COVID-19, pneumonia, pneumothorax, COPD, CHF, infection, cardiac ischemia, pulmonary embolism, bronchitis, musculoskeletal, gastrointestinal, as well as other pathologies. EMERGENCY DEPARTMENT COURSE/PROCEDURES: ECG: Indication was shortness of breath. The ECG shows a normal sinus rhythm with a rate of 70. There is a nonspecific interventricular block. There is no ST elevation, no PVCs. The QTc is 453. Compared to an ECG from 16 December 2021, the rate has decreased. Continuous Cardiac Monitoring: An order was placed for continuous cardiac monitoring. The monitor shows a rate of 72 with normal sinus rhythm. MEDICAL DECISION MAKING: There is no leukocytosis or concerning anemia. There is a normal platelet count. INR is slightly elevated, likely from her Xarelto use. There was no significant electrolyte abnormality or kidney failure. No concerning liver enzyme elevation. ECG shows a sinus rhythm, no obvious ST elevation. Cardiac enzyme testing x1 is not elevated. Influenza and Covid testing returned negative. Chest x-ray shows some interstitial lung disease, no pneumonia or pneumothorax. Chest CT shows interstitial lung disease, no pneumonia, no PE. On exam, the patient had crackles consistent with her pulmonary fibrosis. She was not in significant distress. The patient received a DuoNeb, she was given IV Solu-Medrol. The patient is requiring more and more oxygen. She has gone downhill over the last 2 weeks. Despite the use of oxygen and adjustments on her oxygen use, she is still short of breath, she is weak and can barely function at home. I do think a hospital stay would be in her best interest. She may be having a flare of her underlying lung disease however, she clearly is not doing well outside the hospital. I did speak with the patient and case mgr. The on-call hospitalist was consulted. Past Med/Surg History Medical History Anxiety Asthma Stable- rare albuterol inhaler use Bipolar disorder Depression Diabetes mellitus, type 2 diet controlled GERD (gastroesophageal reflux disease) Well controlled and stable History of anesthesia reaction Pt had one episode after three hour surgery in 2017- patient reports she had trouble waking up after her surgery, states she became violent and upset, hallucinated while waking up. Began to calm down once she heard her daughter's voice. History of COVID-19 12/2020 - fully recovered Hypothyroidism IBS (irritable bowel syndrome) Intermittent flares - takes Amitriptyline and Protonix for GI pain control Left bundle branch block Chronic Osteopenia Spinal stenosis Syncope Patient reports she "passed out" vs fell asleep- for about 2 hours on 05/14/21 and was treated at [facility] Emergency Room. Pt states she was sitting in chair and the clock said 3pm- next time she looked it was 5pm. Dx with "altered consciousness"- negative work up- feels patient possibly fell asleep Surgical History History of arthroscopy bl knees History of cholecystectomy History of colonoscopy History of hernia surgery WITH MESH History of hysterectomy Status post gastric banding surgery AND REMOVAL (POST OP BLEEDING/HX BLOOD TRANSFUSION WITH REMOVAL) Family History Family/Other No problems noted. Mother Colon cancer Dementia Father , at age 79 from mesothelioma. Mesothelioma Sister No problems noted. Sister No problems noted. Son No problems noted. Daughter No problems noted. Other Family history of diabetes mellitus in father Denies family history of Ovarian cancer Prostate cancer Myocardial infarction Breast cancer Social History Smoking Status: Never smoker Tobacco Type: Cigarettes packs per day: 1; Years Smoked: 8; Number of Years Since Quit: 20; Second Hand Exposure: No; Hx Alcohol Use: Yes Alcohol type: wine Hx Substance Use: No Preferred Language: Luxembourgish Communication Ability: Effective Visual Impairment: No Limitations Color Technician Required: No Beliefs That Will Affect Care: None marital status: Current Living Situation: Alone Current Living Situation Comment: staying w/ son until apartment becomes available current occupational status: retired Feels Safe at Home: Yes Childhood Exposure to Second-Hand Smoke: Yes Dental Care, Regularly: Yes Physical Activity Frequency: Daily Seatbelt Use: always Sunscreen Use: No Assistive Devices: Glasses and Walker Allergies Allergies Allergy/AdvReac Type Severity Reaction Status Date / Time latex Allergy Intermediate Rash Verified 01/05/22 17:04 Sulfa (Sulfonamide Allergy Intermediate RASH Verified 01/05/22 17:04 Antibiotics) Penicillins Allergy Unknown PT DOES Verified 01/05/22 17:04 NOT REMEMBER, REACTION WAS TEENAGER morphine AdvReac Intermediate Anxiety Verified 01/05/22 17:04 Home Meds Home Medications Medication Instructions Recorded Confirmed topiramate 100 mg tablet 100 mg PO BID 07/13/19 01/05/22 albuterol sulfate 90 mcg/actuation 1 puff INHALATION Q6 PRN 01/05/22 01/05/22 aerosol inhaler (Ventolin HFA) buspirone 15 mg tablet 15 mg PO BID 01/05/22 01/05/22 tiotropium bromide 2.5 1 puff INHALATION DAILY 01/05/22 01/05/22 mcg/actuation mist for inhalation (Spiriva Respimat) Previous Rx's Medication Instructions Recorded blood sugar diagnostic (XeroxTouch #100 ea 05/18/21 Ultra Test) blood-glucose meter (XeroxTouch #1 ea 05/18/21 Ultra2 Meter) lancets 33 gauge (XeroxTouch Delica #100 ea 05/18/21 Lancets) alprazolam 0.5 mg tablet (Xanax) 0.5 mg PO Q12 PRN #20 tab 06/15/21 Wheelchair (Manual) #1 ea 06/28/21 pantoprazole 40 mg tablet,delayed 40 mg PO QAM #90 tab 08/12/21 release apixaban 5 mg tablet (Eliquis) 5 mg PO BID #180 tab 09/12/21 levothyroxine 125 mcg tablet 125 mcg PO QAM #90 tab 09/13/21 metoprolol tartrate 25 mg tablet 25 mg PO BID 30 Days #60 tab 09/13/21 amitriptyline 25 mg tablet 25 mg PO HS #90 tab 09/26/21 oxycodone-acetaminophen 5 mg-325 1 tab PO Q6H PRN #30 tab 11/16/21 mg tablet (Percocet) atorvastatin 40 mg tablet 40 mg PO QAM 30 Days #90 tab 01/03/22 Results & Data (ED) Vital Signs Vital Signs - 24 hr 01/05/22 15:49 01/05/22 18:00 Temperature 36.8 C Temperature Source Temporal Artery Scan Pulse Rate 72 Pulse Rate [Right Finger] 78 Pulse Rhythm [Right Finger] Regular Pulse Strength [Right Finger] Normal Respiratory Rate 20 20 Respiratory Effort / Characteristics Non-Labored Respiratory Depth Normal Respiratory Pattern Regular Blood Pressure 118/68 Blood Pressure [Right Arm] 128/85 Blood Pressure Mean 84 Blood Pressure Mean [Right Arm] 99 Blood Pressure Position [Right Arm] Lying Pulse Oximetry 91 97 Oxygen Delivery Method Nasal Cannula Nasal Cannula Oxygen Flow Rate 3 3 Sepsis Recent Fever Within 48 Hours No Sepsis New/Unexplained Change in Mental Status No Sepsis Action Taken by Nursing No Action Required Home Medications Current Medication List: was personally reviewed by me Laboratory Data Attestation: I reviewed the patient's lab results. Result diagrams: 01/05/22 16:16 01/05/22 16:16 Lab Results 01/05/22 01/05/22 01/05/22 Range/Units 16:16 16:16 16:16 WBC 9.38 (4.8-10.8) K/uL RBC 4.80 (4.2-5.4) M/uL Hgb 14.1 (12.0-16.0) g/dL Hct 42.5 (37-47) % MCV 88.5 (80-100) fL MCH 29.4 (25-34) pg MCHC 33.2 (32-36) g/dL RDW Std Deviation 47.1 H (36.4-46.3) fL RDW Coeff of Ese 14.6 H (11.5-14.5) % Plt Count 265 (130-400) K/uL MPV 10.8 H (7.4-10.4) fL Immature Gran % (Auto) 0.5 % Neut % (Auto) 63.5 % Lymph % (Auto) 21.5 % [place] % (Auto) 7.4 % Eos % (Auto) 6.9 % Baso % (Auto) 0.2 % Neut # (Auto) 5.95 (1.4-6.5) K/uL Lymph # (Auto) 2.02 (1.2-3.4) K/uL [place] # (Auto) 0.69 H (0.11-0.59) K/uL Eos # (Auto) 0.65 H (0-0.5) K/uL Baso # (Auto) 0.02 (0-0.2) K/uL Immature Gran # (Auto) 0.05 H (0.00-0.02) K/uL PT 12.3 H (9.0-12.0) Seconds INR 1.2 H (0.9-1.1) APTT 29.1 (21.0-31.0) Seconds PTT Ratio 1.1 Sodium 138 (136-145) mmol/L Potassium 3.9 (3.5-5.1) mmol/L Chloride 106 (98-107) mmol/L Carbon Dioxide 23 (21-32) mmol/L Anion Gap 9 (3-11) BUN 11 (6-23) mg/dl Creatinine 0.86 (0.6-1.2) mg/dl Est Cr Clr Drug Dosing Not Reportable Est GFR ( Amer) 78.2 ml/min Est GFR (Non-Af Amer) 67.5 ml/min BUN/Creatinine Ratio 12.8 (10-20) Glucose 95 (70-99(Fasting)) mg/dl Calcium 9.2 (8.5-10.1) mg/dl Magnesium 1.9 (1.7-2.4) mg/dl Total Bilirubin 0.6 (0.2-1.0) mg/dl AST 29 (13-39) U/L ALT 22 (7-52) U/L Alkaline Phosphatase 115 H (34-104) U/L Troponin I < 0.03 (0-0.04) ng/ml Total Protein 7.6 (6.0-8.3) gm/dl Albumin 3.7 (3.4-5.0) gm/dl Globulin 3.9 (2.5-4.0) gm/dl Albumin/Globulin Ratio 0.9 (0.9-2) Influ A Molecular Assay (Negative) Influ B Molecular Assay (Negative) SARS-CoV-2, RNA, NAAT (NEGATIVE) 01/05/22 01/05/22 Range/Units 18:36 18:36 WBC (4.8-10.8) K/uL RBC (4.2-5.4) M/uL Hgb (12.0-16.0) g/dL Hct (37-47) % MCV (80-100) fL MCH (25-34) pg MCHC (32-36) g/dL RDW Std Deviation (36.4-46.3) fL RDW Coeff of Ese (11.5-14.5) % Plt Count (130-400) K/uL MPV (7.4-10.4) fL Immature Gran % (Auto) % Neut % (Auto) % Lymph % (Auto) % [place] % (Auto) % Eos % (Auto) % Baso % (Auto) % Neut # (Auto) (1.4-6.5) K/uL Lymph # (Auto) (1.2-3.4) K/uL [place] # (Auto) (0.11-0.59) K/uL Eos # (Auto) (0-0.5) K/uL Baso # (Auto) (0-0.2) K/uL Immature Gran # (Auto) (0.00-0.02) K/uL PT (9.0-12.0) Seconds INR (0.9-1.1) APTT (21.0-31.0) Seconds PTT Ratio Sodium (136-145) mmol/L Potassium (3.5-5.1) mmol/L Chloride (98-107) mmol/L Carbon Dioxide (21-32) mmol/L Anion Gap (3-11) BUN (6-23) mg/dl Creatinine (0.6-1.2) mg/dl Est Cr Clr Drug Dosing Est GFR ( Amer) ml/min Est GFR (Non-Af Amer) ml/min BUN/Creatinine Ratio (10-20) Glucose (70-99(Fasting)) mg/dl Calcium (8.5-10.1) mg/dl Magnesium (1.7-2.4) mg/dl Total Bilirubin (0.2-1.0) mg/dl AST (13-39) U/L ALT (7-52) U/L Alkaline Phosphatase (34-104) U/L Troponin I (0-0.04) ng/ml Total Protein (6.0-8.3) gm/dl Albumin (3.4-5.0) gm/dl Globulin (2.5-4.0) gm/dl Albumin/Globulin Ratio (0.9-2) Influ A Molecular Assay Negative (Negative) Influ B Molecular Assay Negative (Negative) SARS-CoV-2, RNA, NAAT NEGATIVE (NEGATIVE) Administered Medications Discontinued Medications Albuterol (Albut/Ipratrop 3mg/0.5mg Neb 3 Ml Vial) 3 ml NEB NOW STA; Protocol Stop: 01/05/22 17:20 Last Admin: 01/05/22 18:29 Dose: 3 ml Documented by: [id number] Ioversol (Optiray 320 125ml) 120 ml IV ONCE ONE Stop: 01/05/22 18:48 Last Admin: 01/05/22 18:47 Dose: 120 ml Documented by: [id number] Methylprednisolone (Methylprednisolone 125 Mg/2 Ml Vial) 60 mg IV NOW STA Stop: 01/05/22 19:21 Last Admin: 01/05/22 19:37 Dose: 60 mg Documented by: [id number] Imaging Data Radiologist's Impression: Chest X-Ray 01/05/22 16:03 XR chest 1V portable CLINICAL HISTORY: Shortness of breath. COMPARISON STUDY: Chest radiograph December 16, 2021. High-resolution chest CT December 06, 2021. FINDINGS: No pneumothorax or pleural effusion is noted. Cardiomediastinal silhouette is stable. Interstitial thickening is similar to prior exams. This favors interstitial lung disease. No superimposed consolidation. No evidence for pulmonary edema. IMPRESSION: Stable interstitial thickening suggestive of interstitial lung disease. No superimposed consolidation identified. ACT 112: Negative or not required by law. Electronically signed by: Parminder Ayala M.D. 01/05/2022 4:41 PM Chest CTA 01/05/22 17:18 CT angio chest PE protocol CLINICAL HISTORY: Shortness of breath and cough. Low oxygen saturation. COMPARISON STUDY: Portable chest from 01/05/2022 and high-resolution CT of the chest from 12/06/2021 CT DOSE: 485.91 mGy.cm TECHNIQUE: CT Angio of the chest was performed.followed by image post processing with coronal, and sagittal MIP reformats. Contrast Volume: Optiray 320, 120 ml FINDINGS: Vasculature: There is homogeneous perfusion of the pulmonary vasculature b ilaterally. No intraluminal filling defects or evidence for pulmonary embolus is seen. Airway: The airway is clear. No endobronchial lesion is identified. Lungs: Compared to the previous CT, diffuse interstitial fibrosis with honeycombing is present characteristic of interstitial lung disease. The lungs are otherwise clear of acute alveolar opacities, air bronchograms or pathologic pulmonary nodules. Pleura: There is no evidence for pleural effusion. There is no evidence for pneumothorax. Mediastinum: Compared to the previous examination, mildly enlarged, stable lymph nodes are again seen. The heart is mildly enlarged. There is mild coronary artery calcification. The thoracic aorta is within normal limits. There is no evidence for pericardial effusion. Upper abdomen:The adrenal glands are normal bilaterally. There is a small hiatal hernia. Surgical clips are present previous cholecystectomy. There is evidence for a large cyst involving the upper pole of the right kidney. Osseous structures: There is no acute osseous pathology. Impression: 1. No CTA evidence for pulmonary embolus. 2. No acute chest disease. 3. However, there is extensive idiopathic interstitial lung disease with honeycombing present. 4. Additional nonacute findings are delineated above. ACT 112: Negative or not required by law. Electronically signed by: Erick Aly M.D. 01/05/2022 7:17 PM Discharge Plan Visit Data Chief Complaint: Shortness of Breath/Dyspnea Stated Complaint: LOW O2 LEVELS ED Provider: Jose Maria Grossman Discharge Problem: SOB (shortness of breath), Weakness, Pulmonary fibrosis, Failure of outpatient treatment Patient Disposition: Admitted As Inpatient Condition: Fair Forms Stand Alone Forms: ViewReple [facility] iDiDiD Prescriptions Prescriptions: No Action (DME) OneTouch Ultra Test Strip See Rx Instructions .Route Qty: 100 RF: 3 (DME) blood-glucose meter [Cook123uch Ultra2 Meter] Kit See Rx Instructions .Route Qty: 1 RF: 0 (DME) lancets [XeroxTouch Delica Lancets] 33 gauge misc See Rx Instructions .Route Qty: 100 RF: 3 pantoprazole 40 mg tablet,delayed release (DR/EC) 40 mg PO QAM Qty: 90 RF: 3 Eliquis 5 mg tablet 5 mg PO BID Qty: 180 RF: 3 metoprolol tartrate 25 mg tablet 25 mg PO BID 30 Days Qty: 60 RF: 11 levothyroxine 125 mcg tablet 125 mcg PO QAM Qty: 90 RF: 1 amitriptyline 25 mg tablet 25 mg PO HS Qty: 90 RF: 3 atorvastatin 40 mg tablet 40 mg PO QAM 30 Days Qty: 90 RF: 3 (DME) Wheelchair (Manual) Device See Rx Instructions .MEDSUPPLY Qty: 1 RF: 0 oxycodone-acetaminophen [Percocet] 5-325 mg tablet 1 tab PO Q6H PRN (Reason: pain) Qty: 30 RF: 0 topiramate 100 mg tablet 100 mg PO BID RF: 0 alprazolam [Xanax] 0.5 mg Tablet 0.5 mg PO Q12 PRN (Reason: anxiety) Qty: 20 RF: 0 Spiriva Respimat 2.5 mcg/actuation mist 1 puff INHALATION DAILY RF: 0 buspirone 15 mg tablet 15 mg PO BID RF: 0 albuterol sulfate [Ventolin HFA] 90 mcg/actuation HFA aerosol inhaler 1 puff INHALATION Q6 PRN (Reason: Shortness Of Breath) RF: 0 Referrals Referrals: Ted Singh MD [Primary Care Provider] -
[2022-01-05] MEDS ORDERED: OPTIRAY 320 125ml IV ONE (18:47)
[2022-01-05 18:58] LABS: Influenza A virus by PCR Negative (Negative); Influenza B virus by PCR Negative (Negative)
--- NOTE | 2022-01-05 19:19 | CT Scan Report ---
CT angio chest PE protocol CLINICAL HISTORY: Shortness of breath and cough. Low oxygen saturation. COMPARISON STUDY: Portable chest from 01/05/2022 and high-resolution CT of the chest from 12/06/2021 CT DOSE: 485.91 mGy.cm TECHNIQUE: CT Angio of the chest was performed.followed by image post processing with coronal, and s agittal MIP reformats. Contrast Volume: Optiray 320, 120 ml FINDINGS: Vasculature: There is homogeneous perfusion of the pulmonary vasculature bilaterally. No intraluminal filling defects or evidence for pulmonary embolus is seen. Airway: The airway is clear. No endobronchial lesion is identified. Lungs: Compared to the previous CT, diffuse interstitial fibrosis with honeycombing is present charac teristic of interstitial lung disease. The lungs are otherwise clear of acute alveolar opacities, air bronchograms or pathologic pulmonary nodules. Pleura: There is no evidence for pleural effusion. There is no evidence for pneumothorax. Mediastinum: Compared to the previous examination, mildly enlarged, stable lymph nodes are again seen . The heart is mildly enlarged. There is mild coronary artery calcification. The thoracic aorta is wi thin normal limits. There is no evidence for pericardial effusion. Upper abdomen:The adrenal glands are normal bilaterally. There is a small hiatal hernia. Surgical cli ps are present previous cholecystectomy. There is evidence for a large cyst involving the upper pole of the right kidney. Osseous structures: There is no acute osseous pathology. Impression: 1. No CTA evidence for pulmonary embolus. 2. No acute chest disease. 3. However, there is extensive idiopathic interstitial lung disease with honeycombing present. 4. Additional nonacute findings are delineated above. ACT 112: Negative or not required by law. Electronically signed by: Erick Aly M.D. 01/05/2022 7:17 PM
[2022-01-05] MEDS ORDERED: methylPREDNISolone 125 MG/2 ML VIAL IV STA (19:20)
--- NOTE | 2022-01-05 20:54 | History & Physical Report ---
Date of Service January 05, 2022 Assessment & Plan (1) Hypoxia: Plan: Dyspnea and hypoxia without fevers, WBC count normal, normal NLR, no opacities on CXR - Likely related to her interstitial lung disease - PFTs performed in [facility]- inconclusive - Continue current nebs, and inhalers for asthma - sputum sample sent - as below - Does not appear infectious etiology at this time (2) IPF (idiopathic pulmonary fibrosis): Plan: Likely progression of her interstitial disease- she has history of COVID 01/02 - preliminary workup initiated by pulmonology for IPF/UIP - Pulm consult placed- appreciate assistance - No further steroids until pulmonary evaluate - Apixaban held on admission- restart if no intervention planned at this time - Titrate oxygen for Spo2 >92% (3) PSVT (paroxysmal supraventricular tachycardia): Plan: Patient has loop recorder in place for afib concerns from cryptogenic CVA - She is on Apixaban as outpatient (on hold until pulmonary evaluation) - Continue with Metoprolol 25mg BID - ECG daily (4) Cerebrovascular accident (CVA) of left thalamus: Plan: History of in June 04 - Continue statin - Continue Apixaban when able - Continue blood pressure control (5) Status post right knee replacement: Plan: s/p TKA and had a fall in November with rupture of her MCL with instability- continues to wear brace - Brace while up ambulating (6) Left bundle branch block: Plan: Not acute (7) Asthma: Plan: Continue Albuterol Continue Spiriva- but symptoms and dyspnea likely related to #2 but she feels better with these (8) Diabetes mellitus, type 2: Plan: checks glucose at home but not on any medications - BG AC/HS- add coverage if > 180mg/dl (9) GERD (gastroesophageal reflux disease): Plan: Continue PPI (10) Hypothyroidism: Plan: Continue Synthroid 125mcg daily History of Present Illness Primary Care Provider: Ted Singh MD 71 YOF with past medical history: Left Thalmic CVA, PSVT (with loop recorder), LBBB, Asthma, Interstitial lung disease, Likely Pulmonary Fibrosis, Asthma, COVID 19 (01/02) Right Total Knee Replacement, Anxiety, Depression, DMII, GERD, Hypothyroidism, IBS, Spinal Stenosis, Afib(on apixaban). Patient comes to the EMD today referred from her primary care physician for hypoxia and increasing oxygen use. The patient reports that over the past week she has been having increased shortness of breath with cough, she has been transitioned to oxygen continuous at home during this time by her PCP. She reports getting short of breath just from getting up and going to the bathroom, she reports her oxygen saturation as 82% at home. She has not had any fevers, pleuritic chest pain, she is coughing up thick sputum with various colors from white, yellow, brown and sometimes with blood. She reports having an albuterol inhaler which made her feel somewhat better and Telson Perles as well as Spiriva with some effect on her cough. The patient has underlying lung disease and had a workup initiated by pulmonary for IPF, with inconclusive spirometry. She was to follow up in January for repeat PFTs. She has not had bronchoscopy evaluation with biopsy performed. Patient is anxious and upset because she can't breathe as well as she is unsure of her actual lung disease or prognosis/expectancy. In the EMD the patient had CTA of chest performed and was given 60mg of MethylPRed, and albuterol neb by EMD. Her CTA was reported as negative for PE, no other acute process, but continued to note extensive idiopathic interstitial lung disease with honeycombing. Her COVID and Influenza tests were negative. The patient will be admitted, obtain sputum sample, continue nebulizer, and pulmonary consultation for her underlying lung disease. Allergies Allergy/AdvReac Type Severity Reaction Status Date / Time latex Allergy Intermediate Rash Verified 01/05/22 17:04 Sulfa (Sulfonamide Allergy Intermediate RASH Verified 01/05/22 17:04 Antibiotics) Penicillins Allergy Unknown PT DOES Verified 01/05/22 17:04 NOT REMEMBER, REACTION WAS TEENAGER morphine AdvReac Intermediate Anxiety Verified 01/05/22 17:04 Home Medications Medication Instructions Recorded Confirmed Type topiramate 100 mg tablet 100 mg PO BID 07/13/19 01/05/22 History blood sugar diagnostic (Propagenixuch #100 ea 05/18/21 11/16/21 Rx Ultra Test) blood-glucose meter (Propagenixuch #1 ea 05/18/21 11/16/21 Rx Ultra2 Meter) lancets 33 gauge (OneTouch Delica #100 ea 05/18/21 11/16/21 Rx Lancets) alprazolam 0.5 mg tablet (Xanax) 0.5 mg PO Q12 PRN #20 tab 06/15/21 01/05/22 Rx Wheelchair (Manual) #1 ea 06/28/21 11/16/21 Rx pantoprazole 40 mg tablet,delayed 40 mg PO QAM #90 tab 08/12/21 01/05/22 Rx release apixaban 5 mg tablet (Eliquis) 5 mg PO BID #180 tab 09/12/21 01/05/22 Rx levothyroxine 125 mcg tablet 125 mcg PO QAM #90 tab 09/13/21 01/05/22 Rx metoprolol tartrate 25 mg tablet 25 mg PO BID 30 Days #60 tab 09/13/21 01/05/22 Rx amitriptyline 25 mg tablet 25 mg PO HS #90 tab 09/26/21 01/05/22 Rx oxycodone-acetaminophen 5 mg-325 1 tab PO Q6H PRN #30 tab 11/16/21 01/05/22 Rx mg tablet (Percocet) atorvastatin 40 mg tablet 40 mg PO QAM 30 Days #90 tab 01/03/22 01/05/22 Rx albuterol sulfate 90 mcg/actuation 1 puff INHALATION Q6 PRN 01/05/22 01/05/22 History aerosol inhaler (Ventolin HFA) buspirone 15 mg tablet 15 mg PO BID 01/05/22 01/05/22 History tiotropium bromide 2.5 1 puff INHALATION DAILY 01/05/22 01/05/22 History mcg/actuation mist for inhalation (Spiriva Respimat) Past Med/Surg History Medical History Anxiety Asthma Stable- rare albuterol inhaler use Bipolar disorder Depression Diabetes mellitus, type 2 diet controlled GERD (gastroesophageal reflux disease) Well controlled and stable History of anesthesia reaction Pt had one episode after three hour surgery in 2017- patient reports she had trouble waking up after her surgery, states she became violent and upset, hallucinated while waking up. Began to calm down once she heard her daughter's voice. History of COVID-19 12/2020 - fully recovered Hypothyroidism IBS (irritable bowel syndrome) Intermittent flares - takes Amitriptyline and Protonix for GI pain control Left bundle branch block Chronic Osteopenia Spinal stenosis Syncope Patient reports she "passed out" vs fell asleep- for about 2 hours on 05/14/21 and was treated at [facility] Emergency Room. Pt states she was sitting in chair and the clock said 3pm- next time she looked it was 5pm. Dx with "altered consciousness"- negative work up- feels patient possibly fell asleep Surgical History History of arthroscopy bl knees History of cholecystectomy History of colonoscopy History of hernia surgery WITH MESH History of hysterectomy Status post gastric banding surgery AND REMOVAL (POST OP BLEEDING/HX BLOOD TRANSFUSION WITH REMOVAL) Family History Family/Other No problems noted. Mother Colon cancer Dementia Father , at age 79 from mesothelioma. Mesothelioma Sister No problems noted. Sister No problems noted. Son No problems noted. Daughter No problems noted. Other Family history of diabetes mellitus in father Denies family history of Ovarian cancer Prostate cancer Myocardial infarction Breast cancer Social History Smoking Status: Never smoker Tobacco Type: Cigarettes packs per day: 1; Years Smoked: 8; Number of Years Since Quit: 20; Second Hand Exposure: No; Hx Alcohol Use: Yes Alcohol type: wine Hx Substance Use: No Preferred Language: [place] Communication Ability: Effective Visual Impairment: No Limitations Bacon Skin Lifter Required: No Beliefs That Will Affect Care: None marital status: Current Living Situation: Alone Current Living Situation Comment: staying w/ son until apartment becomes available current occupational status: retired Feels Safe at Home: Yes Childhood Exposure to Second-Hand Smoke: Yes Dental Care, Regularly: Yes Physical Activity Frequency: Daily Seatbelt Use: always Sunscreen Use: No Assistive Devices: Glasses and Walker Review of Systems Review of Systems: REVIEW OF SYSTEMS: Constitutional: No fever, sweats or chills Eyes: No diplopia, no worsening or blurred vision ENT: normal hearing, no trouble swallowing Respiratory: (+) cough, sputum, dyspnea at rest or on exertion Cardiovascular: No chest pain, tightness or palpitations Abdomen: No pain, nausea, vomiting, diarrhea or constipation Musculoskeletal: (+) chronic knee joint and leg pain, NO calf pain, swelling Neurologic: (+) weakness secondary to fatigue and dyspnea, NO numbness/tingling, or balance problems Psychiatric: (+) anxiety or depression Skin: No rash or itch Physical Exam Physical Exam: PHYSICAL EXAM: General: awake, alert, no apparent distress Head: Normocephalic, atraumatic ENT: PERRL, EOMI, no pharyngeal exudate, mucous membranes moist Neuro: AAO x 3, speech clear and appropriate, strength intact bilaterally 5/5, sensation intact and equal all extremities and dermatomes, no pronator drift Chest: equal rise and fall of the chest, no accessory muscle use, no heaves or thrills, fine crackles throughout with end expiratory wheeze bilaterally, on 2LNC Cardiac: Regular rate and rhythm, telemetry reviewed, skin warm dry, cap refill <3 seconds, peripheral pulses +2 no JVD, no murmur, no edema GI: NABS x 4 quadrants, soft, nontender to palpation, no rebound, guarding or tenderness : Spontaneously voiding, no pain, no CVA tenderness, Extremities: Normal inspection, no peripheral edema or erythema, calfs nontender to palpation MSK: Knee brace on right knee Psych: anxious Skin: no rash or erythema Results & Data Results & Data ([facility]) Vital Signs (Past 12 Hours) Vital Signs Temp Pulse Pulse Resp BP BP Pulse Ox 01/05/22 20:00 76 18 119/70 98 01/05/22 18:00 78 20 128/85 97 01/05/22 15:49 36.8 C 72 20 118/68 91 Laboratory Results Laboratory Results - last 24 hr 01/05/22 01/05/22 01/05/22 16:16 16:16 16:16 WBC 9.38 RBC 4.80 Hgb 14.1 Hct 42.5 MCV 88.5 MCH 29.4 MCHC 33.2 RDW Std Deviation 47.1 H RDW Coeff of Ese 14.6 H Plt Count 265 MPV 10.8 H Immature Gran % (Auto) 0.5 Neut % (Auto) 63.5 Lymph % (Auto) 21.5 Glasscock % (Auto) 7.4 Eos % (Auto) 6.9 Baso % (Auto) 0.2 Neut # (Auto) 5.95 Lymph # (Auto) 2.02 Glasscock # (Auto) 0.69 H Eos # (Auto) 0.65 H Baso # (Auto) 0.02 Immature Gran # (Auto) 0.05 H PT 12.3 H INR 1.2 H APTT 29.1 PTT Ratio 1.1 Sodium 138 Potassium 3.9 Chloride 106 Carbon Dioxide 23 Anion Gap 9 BUN 11 Creatinine 0.86 Est Cr Clr Drug Dosing Not Reportable Est GFR ( Amer) 78.2 Est GFR (Non-Af Amer) 67.5 BUN/Creatinine Ratio 12.8 Glucose 95 Calcium 9.2 Magnesium 1.9 Total Bilirubin 0.6 AST 29 ALT 22 Alkaline Phosphatase 115 H Troponin I < 0.03 Total Protein 7.6 Albumin 3.7 Globulin 3.9 Albumin/Globulin Ratio 0.9 Influ A Molecular Assay Influ B Molecular Assay SARS-CoV-2, RNA, NAAT 01/05/22 01/05/22 18:36 18:36 WBC RBC Hgb Hct MCV MCH MCHC RDW Std Deviation RDW Coeff of Ese Plt Count MPV Immature Gran % (Auto) Neut % (Auto) Lymph % (Auto) Glasscock % (Auto) Eos % (Auto) Baso % (Auto) Neut # (Auto) Lymph # (Auto) Glasscock # (Auto) Eos # (Auto) Baso # (Auto) Immature Gran # (Auto) PT INR APTT PTT Ratio Sodium Potassium Chloride Carbon Dioxide Anion Gap BUN Creatinine Est Cr Clr Drug Dosing Est GFR ( Amer) Est GFR (Non-Af Amer) BUN/Creatinine Ratio Glucose Calcium Magnesium Total Bilirubin AST ALT Alkaline Phosphatase Troponin I Total Protein Albumin Globulin Albumin/Globulin Ratio Influ A Molecular Assay Negative Influ B Molecular Assay Negative SARS-CoV-2, RNA, NAAT NEGATIVE Diagnostic Findings Chest X-Ray 01/05/22 16:03 XR chest 1V portable CLINICAL HISTORY: Shortness of breath. COMPARISON STUDY: Chest radiograph December 16, 2021. High-resolution chest CT December 06, 2021. FINDINGS: No pneumothorax or pleural effusion is noted. Cardiomediastinal silhouette is stable. Interstitial thickening is similar to prior exams. This favors interstitial lung disease. No superimposed consolidation. No evidence for pulmonary edema. IMPRESSION: Stable interstitial thickening suggestive of interstitial lung disease. No superimposed consolidation identified. ACT 112: Negative or not required by law. Electronically signed by: Parminder Ayala M.D. 01/05/2022 4:41 PM Chest CTA 01/05/22 17:18 CT angio chest PE protocol CLINICAL HISTORY: Shortness of breath and cough. Low oxygen saturation. COMPARISON STUDY: Portable chest from 01/05/2022 and high-resolution CT of the chest from 12/06/2021 CT DOSE: 485.91 mGy.cm TECHNIQUE: CT Angio of the chest was performed.followed by image post pr ocessing with coronal, and sagittal MIP reformats. Contrast Volume: Optiray 320, 120 ml FINDINGS: Vasculature: There is homogeneous perfusion of the pulmonary vasculature bilaterally. No intraluminal filling defects or evidence for pulmonary embolus is seen. Airway: The airway is clear. No endobronchial lesion is identified. Lungs: Compared to the previous CT, diffuse interstitial fibrosis with honeycombing is present characteristic of interstitial lung disease. The lungs are otherwise clear of acute alveolar opacities, air bronchograms or pathologic pulmonary nodules. Pleura: There is no evidence for pleural effusion. There is no evidence for pneumothorax. Mediastinum: Compared to the previous examination, mildly enlarged, stable lymph nodes are again seen. The heart is mildly enlarged. There is mild coronary artery calcification. The thoracic aorta is within normal limits. There is no evidence for pericardial effusion. Upper abdomen:The adrenal glands are normal bilaterally. There is a small hiatal hernia. Surgical clips are present previous cholecystectomy. There is evidence for a large cyst involving the upper pole of the right kidney. Osseous structures: There is no acute osseous pathology. Impression: 1. No CTA evidence for pulmonary embolus. 2. No acute chest disease. 3. However, there is extensive idiopathic interstitial lung disease with hon eycombing present. 4. Additional nonacute findings are delineated above. ACT 112: Negative or not required by law. Electronically signed by: Erick Aly M.D. 01/05/2022 7:17 PM Medications Administered Discontinued Medications Albuterol (Albut/Ipratrop 3mg/0.5mg Neb 3 Ml Vial) 3 ml NEB NOW STA; Protocol Stop: 01/05/22 17:20 Last Admin: 01/05/22 18:29 Dose: 3 ml Documented by: [id number] Ioversol (Optiray 320 125ml) 120 ml IV ONCE ONE Stop: 01/05/22 18:48 Last Admin: 01/05/22 18:47 Dose: 120 ml Documented by: [id number] Methylprednisolone (Methylprednisolone 125 Mg/2 Ml Vial) 60 mg IV NOW STA Stop: 01/05/22 19:21 Last Admin: 01/05/22 19:37 Dose: 60 mg Documented by: [id number] ECG Additional Comments: Normal sinus rhythm Left axis deviation Inferior infarct (cited on or before 05-JAN-2022) Anterolateral infarct (cited on or before 05-JAN-2022) Abnormal ECG Code Status & VTE Plan Code Status CODE: DNR/DNI VTE: SCDS, Supervising Physician Co-Signing Physician Notes Patient seen and examined, chart reviewed, case discussed with SHOSHANA Martinez and I agree with the assessment and plan as above. In brief, patient is a 71yo female with likely history of ILD/Pulmonary fibrosis - presently being worked up by Pulmonary. She has had inconclusive PFTs performed in the outpatient setting. Plan for repeat PFTs in January. High resolution CT of the chest with findings of chronic ILD/UIP pattern- similar to prior exam from 05/2021- Most consistent with Idiopathic Pulmonary Fibrosis Serological workup sent for workup of IPF NEGATIVE (RF, CCP IgG, ALEXEY, Proteinase 3, anti-neutropil, anti-Ashley, SS-A/Ro, SS-B/La, Anti-reyna, COMPUTER LANGUAGE CODER antibody, SCL- 70/Scleroderma, DS-DNA antibody and anti-centromere) Exam is largely unremarkable. She is sitting comfortably in bed. No respiratory distress. Saturating well on room air. Lungs with fine end-inspiratory crackles +S1/S2, regular, no m/r/g No LE edema, clubbing, cyanosis Labs and images reviewed Assessment/Plan -Supplemental O2, Nebs as needed -Will hold off on further steroids or antibiotics at this time -Pulmonary consultation appreciated. -Remainder as above PG Care Time/CCT Total # of Minutes Spent Total Time Spent with Patient: Total time spent is greater than 50% in coordination of care (as documented) at patient's floor/unit and/or counseling patient: Coding Level of Care Code 62380 Initial Inpt Care Lvl 3 Diagnoses Hypoxia R09.02 IPF (idiopathic pulmonary fibrosis) J84.112 PSVT (paroxysmal supraventricular tachycardia) I47.1 Cerebrovascular accident (CVA) of left thalamus I63.9 Status post right knee replacement Z96.651 Left bundle branch block I44.7 Asthma J45.909 Diabetes mellitus, type 2 E11.9 GERD (gastroesophageal reflux disease) K21.9 Hypothyroidism E03.9
[2022-01-05] MEDS ORDERED: ALBUT/IPRATROP 3MG/0.5MG NEB 3 ML VIAL NEB PRN (23:29)
[2022-01-05] MEDS ORDERED: oxyCODONE/ACETAMINOPHEN 5mg/325mg TAB PO PRN (23:29)
[2022-01-05] MEDS ORDERED: ACETAMINOPHEN 325 MG TAB PO PRN (23:29)
[2022-01-05] MEDS ORDERED: ALBUTEROL HFA 8 GM INHALER INH PRN (23:29)
[2022-01-06] MEDS: TOPIRAMATE 100 MG TAB PO SCH ×3 (00:24→22:18)
[2022-01-06] MEDS: ALPRAZolam 0.5 MG TABLET PO PRN (00:24)
[2022-01-06] MEDS: AMITRIPTYLINE HCL 25 MG TAB PO SCH ×2 (02:19→22:19)
[2022-01-06] MEDS: METOPROLOL TARTRATE 25 MG TAB PO SCH ×3 (02:20→22:19)
[2022-01-06] MEDS: LEVOTHYROXINE SODIUM 125 MCG TABLET PO SCH (06:29)
[2022-01-06 07:30] LABS: Basophils # (auto) 0.01 K/uL (0-0.2); Basophils % (auto) 0.2 %; Hematocrit (blood only) 41.1 % (37-47); Hemoglobin 13.5 g/dL (12.0-16.0); Immature Granulocytes # (auto) 0.01 K/uL (0.00-0.02); Immature Granulocytes % (auto) 0.2 %; Lymphocytes # (auto) 0.79 K/uL (1.2-3.4); Mean Corpuscular Hemoglobin 29.1 pg (25-34); Mean Corpuscular Hgb Conc 32.8 g/dL (32-36); Mean Corpuscular Volume 88.6 fL (80-100); Mean Platelet Volume 10.6 fL (7.4-10.4); Monocytes # (auto) 0.14 K/uL (0.11-0.59); Neutrophils # (auto) 3.69 K/uL (1.4-6.5); Neutrophils % (auto) 79.6 %; Platelet Count 245 K/uL (130-400); RDW Coefficient of Variation 14.3 % (11.5-14.5); RDW Standard Deviation 45.9 fL (36.4-46.3); Red Blood Count 4.64 M/uL (4.2-5.4); White Blood Count 4.64 K/uL (4.8-10.8)
[2022-01-06 07:55] LABS: Calcium 9.2 mg/dl (8.5-10.1); Est GFR (African American) 78.2 ml/min; Est GFR (Non-African American) 67.5 ml/min; Magnesium 1.9 mg/dl (1.7-2.4); Potassium 3.8 mmol/L (3.5-5.1)
--- NOTE | 2022-01-06 08:05 | Pulmonary Consultation ---
Date of Consultation January 06, 2022 Assessment & Plan (1) Acute on chronic respiratory failure with hypoxemia: (2) SOB (shortness of breath): (3) Pulmonary fibrosis: CT chest 01/05/2022 personally reviewed: Increase peripheral reticular markings upper and lower lobes No clear lung infiltrate appreciated Minimal mediastinal lymphadenopathy which is unchanged I do not see any significant groundglass opacities to think of acute exacerbation of IPF --Acute on chronic hypoxic respiratory failure CT chest does not show any significant groundglass opacities or significant change compared to previous HRCT done in November 2021 I doubt this is severe acute exacerbation of IPF Agree with continuing Solu-Medrol 40 mg for couple of days and then transitioning to p.o. prednisone No clear signs of pulmonary infiltrate No indication for bronchoscopy --IPF Extensive autoimmune work-up was negative for everything 08/03/21 --Generalized lethargy Patient has hypothyroidism, order TSH Sleep apnea is also a possibility Outpatient polysomnography should be considered --DNR/DNI Plan: Solu-Medrol 40 mg for the next couple of days then transition to p.o. prednisone I think patient is going to benefit from pulmonary rehab. Incentive spirometry beneficial Follow-up BNP and TSH She can have follow-up with pulmonology as an outpatient to consider antifibrinolytic Case was discussed with Melina Yost Please note the above document was generated using voice recognition software. It may contain grammatical, syntax or spelling errors.Any formal questions or concerns about the content, text or information contained within the body of this dictation should be directly addressed to the provider for clarification. History of Present Illness Attending Physician: Basia Mart MD History of Present Illness 71-year-old female coming to the hospital because of worsening shortness of breath going on since last 2 weeks Past medical history: IPF on 2-3 liters nasal cannula at home, asthma, history of CVA, anxiety/depression, hypothyroidism, GERD, IBS, A. fib on apixaban Patient follows up with Dr. Lyman as an outpatient. His note reviewed At the time of examination patient said that she has been having issues with her breathing in the last couple of weeks She has been coughing it is usually worse especially in the early in the morning mostly times it is clear phlegm. Occasionally it is yellow in color. Denies any blood in it. No fever or chills. Does complain of headache. No blurry vision No dysuria, no diarrhea No night sweats, no weight loss. Patient states she is able to walk approximately from her room to the bathroom when she gets short of breath was associated with chest tightness and huffing and puffing. Denies any wheezing or chest pain at that time. She does check her oxygen at that time and usually is around 82% even though when she is on 3 L at the time. Patient also complains of feeling lethargic during the day and sleeps all day. Denies any snoring that she knows of. Social history: Only 8-pack-year smoking history quit more than 20 years ago Allergies Allergy/AdvReac Type Severity Reaction Status Date / Time latex Allergy Intermediate Rash Verified 01/05/22 17:04 Sulfa (Sulfonamide Allergy Intermediate RASH Verified 01/05/22 17:04 Antibiotics) Penicillins Allergy Unknown PT DOES Verified 01/05/22 17:04 NOT REMEMBER, REACTION WAS TEENAGER morphine AdvReac Intermediate Anxiety Verified 01/05/22 17:04 Home Medications Medication Instructions Recorded Confirmed Type topiramate 100 mg tablet 100 mg PO BID 07/13/19 01/05/22 History blood sugar diagnostic (OneTouch #100 ea 05/18/21 11/16/21 Rx Ultra Test) blood-glucose meter (OneTouch #1 ea 05/18/21 11/16/21 Rx Ultra2 Meter) lancets 33 gauge (OneTouch Delica #100 ea 05/18/21 11/16/21 Rx Lancets) alprazolam 0.5 mg tablet (Xanax) 0.5 mg PO Q12 PRN #20 tab 06/15/21 01/05/22 Rx Wheelchair (Manual) #1 ea 06/28/21 11/16/21 Rx pantoprazole 40 mg tablet,delayed 40 mg PO QAM #90 tab 08/12/21 01/05/22 Rx release apixaban 5 mg tablet (Eliquis) 5 mg PO BID #180 tab 09/12/21 01/05/22 Rx levothyroxine 125 mcg tablet 125 mcg PO QAM #90 tab 09/13/21 01/05/22 Rx metoprolol tartrate 25 mg tablet 25 mg PO BID 30 Days #60 tab 09/13/21 01/05/22 Rx amitriptyline 25 mg tablet 25 mg PO HS #90 tab 09/26/21 01/05/22 Rx oxycodone-acetaminophen 5 mg-325 1 tab PO Q6H PRN #30 tab 11/16/21 01/05/22 Rx mg tablet (Percocet) atorvastatin 40 mg tablet 40 mg PO QAM 30 Days #90 tab 01/03/22 01/05/22 Rx albuterol sulfate 90 mcg/actuation 1 puff INHALATION Q6 PRN 01/05/22 01/05/22 History aerosol inhaler (Ventolin HFA) buspirone 15 mg tablet 15 mg PO BID 01/05/22 01/05/22 History tiotropium bromide 2.5 1 puff INHALATION DAILY 01/05/22 01/05/22 History mcg/actuation mist for inhalation (Spiriva Respimat) Patient History Medical History Anxiety Asthma Stable- rare albuterol inhaler use Bipolar disorder Depression Diabetes mellitus, type 2 diet controlled GERD (gastroesophageal reflux disease) Well controlled and stable History of anesthesia reaction Pt had one episode after three hour surgery in 2017- patient reports she had trouble waking up after her surgery, states she became violent and upset, hallucinated while waking up. Began to calm down once she heard her daughter's voice. History of COVID-19 12/2020 - fully recovered Hypothyroidism IBS (irritable bowel syndrome) Intermittent flares - takes Amitriptyline and Protonix for GI pain control Left bundle branch block Chronic Osteopenia Spinal stenosis Syncope Patient reports she "passed out" vs fell asleep- for about 2 hours on 05/14/21 and was treated at [facility] Emergency Room. Pt states she was sitting in chair and the clock said 3pm- next time she looked it was 5pm. Dx with "altered consciousness"- negative work up- feels patient possibly fell asleep Surgical History History of arthroscopy bl knees History of cholecystectomy History of colonoscopy History of hernia surgery WITH MESH History of hysterectomy Status post gastric banding surgery AND REMOVAL (POST OP BLEEDING/HX BLOOD TRANSFUSION WITH REMOVAL) Family History Family/Other No problems noted. Mother Colon cancer Dementia Father , at age 79 from mesothelioma. Mesothelioma Sister No problems noted. Sister No problems noted. Son No problems noted. Daughter No problems noted. Other Family history of diabetes mellitus in father Denies family history of Ovarian cancer Prostate cancer Myocardial infarction Breast cancer Social History Smoking Status: Former smoker Tobacco Type: Cigarettes packs per day: 1; Years Smoked: 8; Number of Years Since Quit: 20; Second Hand Exposure: No; Do You Dip or Chew Tobacco: No; Hx Alcohol Use: No Hx Substance Use: No Preferred Language: Algerian Communication Ability: Effective Visual Impairment: No Limitations Union Carpenter Required: No Beliefs That Will Affect Care: None marital status: Current Living Situation: Alone Current Living Situation Comment: staying w/ son until apartment becomes available current occupational status: retired Other Information That Helps Us Care for You: No Feels Safe at Home: Yes Safety Concerns: Feels Safe At This Time Childhood Exposure to Second-Hand Smoke: Yes Dental Care, Regularly: Yes Physical Activity Frequency: Daily Seatbelt Use: always Sunscreen Use: No Assistive Devices: Glasses and Walker Review of Systems Review of Systems: All systems reviewed & are unremarkable except as noted in Subjective Physical Exam Physical Exam: Constitutional: No acute distress HEENT: EOMI, PERRLA Respiratory system: Decreased air entry bilaterally, no wheeze, no rhonchi, positive crackles bilaterally (Velcro-like) CVS: S1-S2 positive, no murmurs or gallops, accentuated P2 Abdomen: Soft, nontender, nondistended, positive bowel sounds x4 Extremities: +2 pulses bilaterally radialis/ dorsalis pedis, no cyanosis, no edema Neuro: Awake alert oriented x3 Psych: Normal mood and affect G/U: No Burks Skin: no rashes, warm and dry Lymphatic: no cervical or axillary lymphadenopathy Results & Data Results & Data ([facility]) Vital Signs (Past 12 Hours) Vital Signs Temp Pulse Resp BP Pulse Ox 01/06/22 00:00 36.7 C 80 18 136/70 96 01/05/22 23:00 36.7 C 80 18 136/70 96 Laboratory Results 01/06/22 06:51 01/06/22 06:51 PG Care Time/CCT Total # of Minutes Spent Total Time Spent with Patient: Total time spent is greater than 50% in coordination of care (as documented) at patient's floor/unit and/or counseling patient: Coding Level of Care Code 37283 Initial Inpt Care Lvl 3 Diagnoses Acute on chronic respiratory failure with hypoxemia J96.21 SOB (shortness of breath) R06.02 Pulmonary fibrosis J84.10
[2022-01-06] MEDS: PANTOprazole 40 MG TAB PO SCH (08:29)
[2022-01-06] MEDS: ATORVASTATIN 40 MG TAB PO SCH (08:29)
[2022-01-06] MEDS: UMECLIDINIUM BROMIDE 62.5MCG/BLISTER 7 PUFFS/INHALER INH SCH (08:29)
[2022-01-06] MEDS ORDERED: NON-FORMULARY MEDICATION (Tiotropium Bromide [Spiriva Respimat] 2.5 mcg/actuation mist) INH SCH (09:00)
--- NOTE | 2022-01-06 09:02 | Hospitalist Progress Note ---
Date of Service January 06, 2022 Assessment & Plan (1) Hypoxia: Plan: Dyspnea and hypoxia without fevers, WBC count normal, normal NLR, no opacities on CXR Does not appear infectious, no elevation in WBC, afebrile Hx COVID-19 last December 2020, negative on admission Recent CTA Nov 2021, repeated on admission. NEGATIVE for PE --> However, there is extensive idiopathic interstitial lung disease with honeycombing present Pulmonary consulted * --> discussed with Dr Campbell who did not feel after review any significant changes compared to prior HRCT in Nov 2021 and doubts severe acute exacerbation of her IPF * --> Agrees with giving solumedrol 40mg IV for couple of days and transition to prednisone at d/c. Recs rehab and pulmonary rehab at discharge * No indication for bronchoscopy at this time. 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 Hgb stable at 13.5 though and will hold off giving any venofer B12 wnl, folate low end of normal, could consider placing on supplementation/MVI Trop negative Monitor sputum cx Supplemental O2 to maintain sats. Will need repeat 2step prior to d/c to demonstrate any changes in baseline needs. CM following Outpatient f/u with Pulmonary for considerations for medications to consider antifibrinolytics PT/OT consulted -- REFUSED [facility] POSSIBILITY. WOULD LIKE TO CONTINUE THERAPY AT HOME THROUGH ENERGY Updated son on phone this evening -- multiple skepticism based on stories from mother/things that happened and didn't in past and just wanted clarification. Patient did want me to update him on plan and information provided. He said prior his mom was walking 2-3 miles daily in [place] but over the past year she almost refuses to move around and almost "likes to be ill". Did discuss fibrosis and yes, patient did desaturate when up and going to bathroom today and she very well may require lifelong oxygen as this is not reversible process, and could have been worsened by covid infection last year. Continue to monitor (2) IPF (idiopathic pulmonary fibrosis): Plan: Likely progression of her interstitial disease- she has history of COVID 01/02 PFTs in july, inconclusive. She states she is to have additional lung testing in January Preliminary work-up for IPF/UIP Jul 2021 --> negative for everything Steroids per pulmonary --> solu-medrol 40mg daily and monitor Restarted home eliquis (missed dose this AM as on hold for possible bronch with pulm) Supplemental O2 as needed to maintain sats (3) PSVT (paroxysmal supraventricular tachycardia): Plan: Patient has loop recorder in place for afib concerns from cryptogenic CVA -- per report has had 11AF events, but may be false events due to PVCs and undersensing Eliquis resumed Continue metoprolol 25mg BID Daily EKG --> none obtained for today. Regular rhythm on examination (4) Cerebrovascular accident (CVA) of left thalamus: Plan: History of in June 04, on eliquis --> since resumed. ASA discontinued given CVA likely cardioembolic Continue statin BP control (5) Status post right knee replacement: Plan: s/p TKA and had a fall in November with rupture of her MCL with instability- continues to wear brace Brace while up ambulating has f/u with ortho for further surgery per patient PT/OT consulted while inpatient (6) Left bundle branch block: Plan: Not acute (7) Asthma: Plan: Continue Albuterol Continue Spiriva- but symptoms and dyspnea likely related to #2 but she feels better with these (8) Diabetes mellitus, type 2: Plan: checks glucose at home but not on any medications - BG AC/HS- add coverage if > 180mg/dl (9) GERD (gastroesophageal reflux disease): Plan: Continue protonix 40mg daily (10) Hypothyroidism: Plan: Continue Synthroid 125mcg daily also with hx of Bipolar listed in chart along with anxiety --> On topiramate 100mg BID, elavil 25mg HS, xanax 0.5mg BID prn --> Given pressured speech when discussing certain topics and tangential speech at times, consider f/u outpt with psych vs consultation with liason for emotional support +/- addition of mood stabilizer but given above will hold off for now --> monitor while on steroids Plan: continued inpatient stay Admission and Anticipated Discharge Date Admission Date: January 05, 2022 Supervising Physician Co-Signing Physician Notes PA Supervision Note: I did not personally see or examine the patient today, but I verified all mcclure points of FAVIO Yost's assessment and plan with the following exceptions/additions: None Subjective eval this afternoon sitting up in chair, on 4L typically on 2L at home, self increased to 3L sputum production thick, white with estrada tinges discussed pulmonary recs for solumedrol and will monitor response. no plans for bronchoscopy she is to have f/u with Dr Romero second week of January for breathing tests. no fever, chills. does have occassional twinges of chest pain, resolve on their own. no abdominal pain, nausea or vomiting does admit she is always drinking water and had been very short of breath prior days and hasn't been having as much to drink as she was unable to get this for herself because she was feeling so weak. she notes she had previously went to [facility] after her knee and WILL NOT entertain going back there. She is insistent on continuing therapy at home through [facility]. Has been having issues with breathing since later teens. Dad smoker. She had been a prior smoker after divorce age 34 but quit about 15 or so years ago after her granddaughter told her to quit and she quit cold turkey. Would like son updated on phone. States he is an exercise nut and NOT to mention therapy/walking to him or he will be making her walk 5 miles, which she states she was doing prior to knee surgery and recent events. Review of Systems Review of Systems: All systems reviewed & are unremarkable except as noted in HPI & below Physical Exam Physical Exam: PHYSICAL EXAM: General: awake, alert, no apparent distress, sitting up in chair, on 4L NC Head normocephalic, atraumatic ENT: mm dry, trachea midline, no deviation, NO JVD Resp: scattered fine crackles throughout, end expiratory wheezing bilaterally, no rales, on 4L NC, able to speak in complete sentences, no accessory muscle use, not tachypneic CV: regular rate, rhythm, no m/r/g, no edema, pulses palpable, cap refill wnl GI: +BS, soft, non-tender : no acuna MSK: brace to R knee, NVI, no edema, calves non-tender Psych: aox3, anxious about prognosis at times, pressured speech when talking about [facility] Results & Data Results & Data ([facility]) Vital Signs (Past 12 Hours) Vital Signs Temp Pulse Resp BP BP Pulse Ox 01/06/22 08:18 36.3 C L 91 H 18 108/56 L 96 01/06/22 00:00 36.7 C 80 18 136/70 96 01/05/22 23:00 36.7 C 80 18 136/70 96 Laboratory Results 01/06/22 01/06/22 01/06/22 Range/Units 07:06 06:51 06:51 WBC 4.64 L (4.8-10.8) K/uL RBC 4.64 (4.2-5.4) M/uL Hgb 13.5 (12.0-16.0) g/dL Hct 41.1 (37-47) % MCV 88.6 (80-100) fL MCH 29.1 (25-34) pg MCHC 32.8 (32-36) g/dL RDW Std Deviation 45.9 (36.4-46.3) fL RDW Coeff of Ese 14.3 (11.5-14.5) % Plt Count 245 (130-400) K/uL MPV 10.6 H (7.4-10.4) fL Immature Gran % (Auto) 0.2 % Neut % (Auto) 79.6 % Lymph % (Auto) 17.0 % Hodgeman % (Auto) 3.0 % Eos % (Auto) 0.0 % Baso % (Auto) 0.2 % Neut # (Auto) 3.69 (1.4-6.5) K/uL Lymph # (Auto) 0.79 L (1.2-3.4) K/uL Hodgeman # (Auto) 0.14 (0.11-0.59) K/uL Eos # (Auto) 0.00 (0-0.5) K/uL Baso # (Auto) 0.01 (0-0.2) K/uL Immature Gran # (Auto) 0.01 (0.00-0.02) K/uL PT (9.0-12.0) Seconds INR (0.9-1.1) APTT (21.0-31.0) Seconds PTT Ratio Sodium 138 (136-145) mmol/L Potassium 3.8 (3.5-5.1) mmol/L Chloride 107 (98-107) mmol/L Carbon Dioxide 22 (21-32) mmol/L Anion Gap 9 (3-11) BUN 12 (6-23) mg/dl Creatinine 0.86 (0.6-1.2) mg/dl Est Cr Clr Drug Dosing 63.0 Est GFR ( Amer) 78.2 ml/min Est GFR (Non-Af Amer) 67.5 ml/min BUN/Creatinine Ratio 14.0 (10-20) Glucose 190 H (70-99(Fasting)) mg/dl POC Glucose 171 H (70-99) mg/dl Calcium 9.2 (8.5-10.1) mg/dl Magnesium 1.9 (1.7-2.4) mg/dl Total Bilirubin (0.2-1.0) mg/dl AST (13-39) U/L ALT (7-52) U/L Alkaline Phosphatase (34-104) U/L Troponin I (0-0.04) ng/ml Total Protein (6.0-8.3) gm/dl Albumin (3.4-5.0) gm/dl Globulin (2.5-4.0) gm/dl Albumin/Globulin Ratio (0.9-2) Influ A Molecular Assay (Negative) Influ B Molecular Assay (Negative) SARS-CoV-2, RNA, NAAT (NEGATIVE) 01/05/22 01/05/22 01/05/22 Range/Units 18:36 18:36 16:16 WBC (4.8-10.8) K/uL RBC (4.2-5.4) M/uL Hgb (12.0-16.0) g/dL Hct (37-47) % MCV (80-100) fL MCH (25-34) pg MCHC (32-36) g/dL RDW Std Deviation (36.4-46.3) fL RDW Coeff of Ese (11.5-14.5) % Plt Count (130-400) K/uL MPV (7.4-10.4) fL Immature Gran % (Auto) % Neut % (Auto) % Lymph % (Auto) % Hodgeman % (Auto) % Eos % (Auto) % Baso % (Auto) % Neut # (Auto) (1.4-6.5) K/uL Lymph # (Auto) (1.2-3.4) K/uL Hodgeman # (Auto) (0.11-0.59) K/uL Eos # (Auto) (0-0.5) K/uL Baso # (Auto) (0-0.2) K/uL Immature Gran # (Auto) (0.00-0.02) K/uL PT (9.0-12.0) Seconds INR (0.9-1.1) APTT (21.0-31.0) Seconds PTT Ratio Sodium 138 (136-145) mmol/L Potassium 3.9 (3.5-5.1) mmol/L Chloride 106 (98-107) mmol/L Carbon Dioxide 23 (21-32) mmol/L Anion Gap 9 (3-11) BUN 11 (6-23) mg/dl Creatinine 0.86 (0.6-1.2) mg/dl Est Cr Clr Drug Dosing Not Reportable Est GFR ( Amer) 78.2 ml/min Est GFR (Non-Af Amer) 67.5 ml/min BUN/Creatinine Ratio 12.8 (10-20) Glucose 95 (70-99(Fasting)) mg/dl POC Glucose (70-99) mg/dl Calcium 9.2 (8.5-10.1) mg/dl Magnesium 1.9 (1.7-2.4) mg/dl Total Bilirubin 0.6 (0.2-1.0) mg/dl AST 29 (13-39) U/L ALT 22 (7-52) U/L Alkaline Phosphatase 115 H (34-104) U/L Troponin I < 0.03 (0-0.04) ng/ml Total Protein 7.6 (6.0-8.3) gm/dl Albumin 3.7 (3.4-5.0) gm/dl Globulin 3.9 (2.5-4.0) gm/dl Albumin/Globulin Ratio 0.9 (0.9-2) Influ A Molecular Assay Negative (Negative) Influ B Molecular Assay Negative (Negative) SARS-CoV-2, RNA, NAAT NEGATIVE (NEGATIVE) 01/05/22 01/05/22 Range/Units 16:16 16:16 WBC 9.38 (4.8-10.8) K/uL RBC 4.80 (4.2-5.4) M/uL Hgb 14.1 (12.0-16.0) g/dL Hct 42.5 (37-47) % MCV 88.5 (80-100) fL MCH 29.4 (25-34) pg MCHC 33.2 (32-36) g/dL RDW Std Deviation 47.1 H (36.4-46.3) fL RDW Coeff of Ese 14.6 H (11.5-14.5) % Plt Count 265 (130-400) K/uL MPV 10.8 H (7.4-10.4) fL Immature Gran % (Auto) 0.5 % Neut % (Auto) 63.5 % Lymph % (Auto) 21.5 % Hodgeman % (Auto) 7.4 % Eos % (Auto) 6.9 % Baso % (Auto) 0.2 % Neut # (Auto) 5.95 (1.4-6.5) K/uL Lymph # (Auto) 2.02 (1.2-3.4) K/uL Hodgeman # (Auto) 0.69 H (0.11-0.59) K/uL Eos # (Auto) 0.65 H (0-0.5) K/uL Baso # (Auto) 0.02 (0-0.2) K/uL Immature Gran # (Auto) 0.05 H (0.00-0.02) K/uL PT 12.3 H (9.0-12.0) Seconds INR 1.2 H (0.9-1.1) APTT 29.1 (21.0-31.0) Seconds PTT Ratio 1.1 Sodium (136-145) mmol/L Potassium (3.5-5.1) mmol/L Chloride (98-107) mmol/L Carbon Dioxide (21-32) mmol/L Anion Gap (3-11) BUN (6-23) mg/dl Creatinine (0.6-1.2) mg/dl Est Cr Clr Drug Dosing Est GFR ( Amer) ml/min Est GFR (Non-Af Amer) ml/min BUN/Creatinine Ratio (10-20) Glucose (70-99(Fasting)) mg/dl POC Glucose (70-99) mg/dl Calcium (8.5-10.1) mg/dl Magnesium (1.7-2.4) mg/dl Total Bilirubin (0.2-1.0) mg/dl AST (13-39) U/L ALT (7-52) U/L Alkaline Phosphatase (34-104) U/L Troponin I (0-0.04) ng/ml Total Protein (6.0-8.3) gm/dl Albumin (3.4-5.0) gm/dl Globulin (2.5-4.0) gm/dl Albumin/Globulin Ratio (0.9-2) Influ A Molecular Assay (Negative) Influ B Molecular Assay (Negative) SARS-CoV-2, RNA, NAAT (NEGATIVE) Diagnostic Findings Chest X-Ray 01/05/22 16:03 XR chest 1V portable CLINICAL HISTORY: Shortness of breath. COMPARISON STUDY: Chest radiograph December 16, 2021. High-resolution chest CT December 06, 2021. FINDINGS: No pneumothorax or pleural effusion is noted. Cardiomediastinal silhouette is stable. Interstitial thickening is similar to prior exams. This favors interstitial lung disease. No superimposed consolidation. No evidence for pulmonary edema. IMPRESSION: Stable interstitial thickening suggestive of interstitial lung disease. No superimposed consolidation identified. ACT 112: Negative or not required by law. Electronically signed by: Parminder Ayala M.D. 01/05/2022 4:41 PM Chest CTA 01/05/22 17:18 CT angio chest PE protocol CLINICAL HISTORY: Shortness of breath and cough. Low oxygen saturation. COMPARISON STUDY: Portable chest from 01/05/2022 and high-resolution CT of the chest from 12/06/2021 CT DOSE: 485.91 mGy.cm TECHNIQUE: CT Angio of the chest was performed.followed by image post processing with coronal, and sagittal MIP reformats. Contrast Volume: Optiray 320, 120 ml FINDINGS: Vasculature: There is homogeneous perfusion of the pulmonary vasculature bilaterally. No intraluminal filling defects or evidence for pulmonary embolus is seen. Airway: The airway is clear. No endobronchial lesion is identified. Lungs: Compared to the previous CT, diffuse interstitial fibrosis with honeycombing is present characteristic of interstitial lung disease. The lungs are otherwise clear of acute alveolar opacities, air bronchograms or pathologic pulmonary nodules. Pleura: There is no evidence for pleural effusion. There is no evidence for pneumothorax. Mediastinum: Compared to the previous examination, mildly enlarged, stable lymph nodes are again seen. The heart is mildly enlarged. There is mild coronary artery calcification. The thoracic aorta is within normal limits. There is no evidence for pericardial effusion. Upper abdomen:The adrenal glands are normal bilaterally. There is a small hiatal hernia. Surgical clips are present previous cholecystectomy. There is evidence for a large cyst involving the upper pole of the right kidney. Osseous structures: There is no acute osseous pathology. Impression: 1. No CTA evidence for pulmonary embolus. 2. No acute chest disease. 3. However, there is extensive idiopathic interstitial lung disease with honeycombing present. 4. Additional nonacute findings are delineated above. ACT 112: Negative or not required by law. Electronically signed by: Erick Aly M.D. 01/05/2022 7:17 PM PG Care Time/CCT Total # of Minutes Spent Total Time Spent with Patient: Total time spent is greater than 50% in coordination of care (as documented) at patient's floor/unit and/or counseling patient: Coding Level of Care Code 03955 Subseq Hosp Care Lvl 3 Diagnoses Hypoxia R09.02 IPF (idiopathic pulmonary fibrosis) J84.112 PSVT (paroxysmal supraventricular tachycardia) I47.1 Cerebrovascular accident (CVA) of left thalamus I63.9 Status post right knee replacement Z96.651 Left bundle branch block I44.7 Asthma J45.909 Diabetes mellitus, type 2 E11.9 GERD (gastroesophageal reflux disease) K21.9 Hypothyroidism E03.9
[2022-01-06 10:21] LABS: Ferritin 66.9 ng/ml (8-388)
[2022-01-06 10:28] LABS: Folate (Folic Acid) 5.78 ng/ml (>5.38)
[2022-01-06] MEDS ORDERED: methylPREDNISolone 40 MG in SYRINGE 0 ML IV SCH (11:45)
[2022-01-06] MEDS: methylPREDNISolone 40 MG in SYRINGE 0 ML IV SCH (13:00)
--- NOTE | 2022-01-06 13:28 | Electrocardiogram Report ---
Test Reason : Blood Pressure : / mmHG Vent. Rate : 070 BPM Atrial Rate : 070 BPM P-R Int : 190 ms QRS Dur : 120 ms QT Int : 420 ms P-R-T Axes : 016 -48 091 degrees QTc Int : 453 ms Normal sinus rhythm Left axis deviation Non-specific intra-ventricular conduction delay Abnormal ECG When compared with ECG of 16-DEC-2021 12:32, Vent. rate has decreased BY 36 BPM Confirmed by Derrell Hardin ([id number]) on 01/06/2022 1:28:29 PM Referred By: REFERRED SELF Confirmed By:Rashid Hardin
[2022-01-06] MEDS: APIXABAN 5 MG TABLET PO SCH (22:19)
[2022-01-07] MEDS: LEVOTHYROXINE SODIUM 125 MCG TABLET PO SCH (05:19)
[2022-01-07 07:08] LABS: Basophils # (auto) 0.02 K/uL (0-0.2); Basophils % (auto) 0.2 %; Eosinophils # (auto) 0.07 K/uL (0-0.5); Eosinophils % (auto) 0.6 %; Hematocrit (blood only) 39.6 % (37-47); Hemoglobin 12.7 g/dL (12.0-16.0); Immature Granulocytes # (auto) 0.05 K/uL (0.00-0.02); Immature Granulocytes % (auto) 0.4 %; Lymphocytes # (auto) 2.21 K/uL (1.2-3.4); Lymphocytes % (auto) 17.8 %; Mean Corpuscular Hemoglobin 28.6 pg (25-34); Mean Corpuscular Hgb Conc 32.1 g/dL (32-36); Mean Corpuscular Volume 89.2 fL (80-100); Mean Platelet Volume 10.9 fL (7.4-10.4); Monocytes # (auto) 0.92 K/uL (0.11-0.59); Monocytes % (auto) 7.4 %; Neutrophils # (auto) 9.18 K/uL (1.4-6.5); Neutrophils % (auto) 73.6 %; Platelet Count 257 K/uL (130-400); RDW Coefficient of Variation 14.2 % (11.5-14.5); RDW Standard Deviation 46.2 fL (36.4-46.3); Red Blood Count 4.44 M/uL (4.2-5.4); White Blood Count 12.45 K/uL (4.8-10.8)
[2022-01-07 07:27] LABS: Calcium 9.2 mg/dl (8.5-10.1); Creatinine Clr Calc Pharmacy 54.1 ml/min; Est GFR (African American) 65.2 ml/min; Est GFR (Non-African American) 56.2 ml/min; Magnesium 1.9 mg/dl (1.7-2.4); Potassium 3.4 mmol/L (3.5-5.1)
--- NOTE | 2022-01-07 07:55 | Pulmonology Progress Note ---
Date of Service January 07, 2022 Assessment & Plan (1) Acute on chronic respiratory failure with hypoxemia: (2) SOB (shortness of breath): (3) Pulmonary fibrosis: Plan: CT chest 01/05/2022 personally reviewed: Increase peripheral reticular markings upper and lower lobes No clear lung infiltrate appreciated Minimal mediastinal lymphadenopathy which is unchanged I do not see any significant groundglass opacities to think of acute exace rbation of IPF --Acute on chronic hypoxic respiratory failure CT chest does not show any significant groundglass opacities or significant change compared to previous HRCT done in November 2021 I doubt this is severe acute exacerbation of IPF Agree with continuing Solu-Medrol 40 mg for couple of days and then transitioning to p.o. prednisone BNP 67 TSH: 0.35 Procalcitonin negative No clear signs of pulmonary infiltrate No indication for bronchoscopy --IPF Extensive autoimmune work-up was negative for everything 08/03/21 Patient to follow-up with Dr. Romero as an outpatient to consider antifibrinolytic She is also scheduled to have PFTs done mid January 2022 --Generalized lethargy Patient has hypothyroidism, order TSH Sleep apnea is also a possibility Outpatient polysomnography should be considered --DNR/DNI Plan: Continue with incentive spirometry Patient will need to step to see how much oxygen is needed prior to going home All questions and queries of the patient were answered in depth Please note the above document was generated using voice recognition software. It may contain grammatical, syntax or spelling errors.Any formal questions or concerns about the content, text or information contained within the body of this dictation should be directly addressed to the provider for clarification. Admission and Anticipated Discharge Date Admission Date: January 05, 2022 Subjective Patient seen and examined at bedside. No acute distress, no adverse events overnight. Patient states she is feeling better compared to when she came to the hospital. She does get short of breath on minimal exertion Denies any chest pain, has been using flutter valve as well as incentive spirometry. Denies any headache, no nausea, no vomiting Good appetite. Review of Systems Review of Systems: All systems reviewed & are unremarkable except as noted in Subjective Physical Exam Physical Exam: Constitutional: No acute distress HEENT: EOMI, PERRLA Respiratory system: Decreased air entry bilaterally, no wheeze, no rhonchi, positive crackles bilaterally (Velcro-like) CVS: S1-S2 positive, no murmurs or gallops, accentuated P2 Abdomen: Soft, nontender, nondistended, positive bowel sounds x4 Extremities: +2 pulses bilaterally radialis/ dorsalis pedis, no cyanosis, no edema Neuro: Awake alert oriented x3 Psych: Normal mood and affect G/U: No Burks Skin: no rashes, warm and dry Lymphatic: no cervical or axillary lymphadenopathy Results & Data Results & Data ([facility]) Vital Signs (Past 12 Hours) Vital Signs Temp Pulse Resp BP Pulse Ox 01/06/22 22:18 36.7 C 74 16 120/77 96 Laboratory Results 01/07/22 06:52 01/07/22 06:52 PG Care Time/CCT Total # of Minutes Spent Total Time Spent with Patient: Total time spent is greater than 50% in coordination of care (as documented) at patient's floor/unit and/or counseling patient: Coding Level of Care Code 34611 Subseq Hosp Care Lvl 2 Diagnoses Acute on chronic respiratory failure with hypoxemia J96.21 SOB (shortness of breath) R06.02 Pulmonary fibrosis J84.10
[2022-01-07] MEDS ORDERED: POTASSIUM CHLORIDE CRTAB 20 MEQ TABCR PO STA (08:02)
--- NOTE | 2022-01-07 08:04 | Hospitalist Progress Note ---
Date of Service January 07, 2022 Assessment & Plan (1) Hypoxia: Plan: Dyspnea and hypoxia without fevers, WBC count normal, normal NLR, no opacities on CXR Does not appear infectious, no elevation in WBC, afebrile Hx COVID-19 last December 2020, negative on admission Recent CTA Nov 2021, repeated on admission. NEGATIVE for PE--> However, there is extensive idiopathic interstitial lung disease with honeycombing present Pulmonary consulted * --> discussed with Dr Campbell who did not feel after review any significant changes compared to prior HRCT in Nov 2021 and doubts severe acute exacerbation of her IPF * --> Agrees with giving solumedrol 40mg IV for couple of days and transition to prednisone at d/c. Recs rehab and pulmonary rehab at discharge * No indication for bronchoscopy at this time. * He does believe she will require more than her usual amount of home oxygen -- had been using 2L NC at home (self increased to 3L NC [employer]) and currently on 4L * Continue incentive spirometer, flutter valve * TSH wnl but low normal * BNP without elevation * Procalcitonin NEGATIVE Monitor sputum cx -- GS with many epi, mod gram positive cocci, few gram neg bacilli, few gram positive bacilli, rare WBC seen Supplemental O2 to maintain sats -- 96% on 4L Iron studies obtained -- iron 43, trans%sat low at 13, ferritin 66.9. Hgb stable at 13.5 though and will hold off giving any Venofer B12 wnl, folate low end of normal, could consider placing on supplementation/MVI Trop negative Will have finish patcher check tomorrow given reported improvement today in cough/breathing, official 2 step prior to d/c to demonstrate any changes in baseline needs. CM following Outpatient f/u with Pulmonary for considerations for medications to consider antifibrinolytics and is to have PFTs in January Updated son on phone evening 01/06 -- multiple skepticism based on stories from mother/things that happened and didn't in past and just wanted clarification. Patient did want me to update him on plan and information provided. He said prior his mom was walking 2-3 miles daily in [place] but over the past year she almost refuses to move around and almost "likes to be ill". Did discuss fibrosis and yes, patient did desaturate when up and going to bathroom and she very well may require lifelong oxygen as this is not reversible process, and could have been worsened by COVID infection last year. Continue to monitor (2) IPF (idiopathic pulmonary fibrosis): Plan: Likely progression of her interstitial disease- she has history of COVID 01/02 PFTs in july, inconclusive. She states she is to have additional lung testing in January Preliminary work-up for IPF/UIP Jul 2021 --> negative for everything Steroids per pulmonary --> solu-medrol 40mg daily and monitor --> reported improvement in cough and chest tightness. Stable on 4L and will titrate O2 to maintain sats Restarted home eliquis (missed dose this AM as on hold for possible bronch with pulm) (3) PSVT (paroxysmal supraventricular tachycardia): Plan: Patient has loop recorder in place for afib concerns from cryptogenic CVA -- per report has had 11AF events, but may be false events due to PVCs and undersensing Eliquis resumed Continue metoprolol 25mg BID No palpitations/chest pain reported today. HR 70s during exam (4) Cerebrovascular accident (CVA) of left thalamus: Plan: History of in June 04, on eliquis --> since resumed. ASA discontinued given CVA likely cardioembolic Continue statin BP control (5) Status post right knee replacement: Plan: s/p TKA and had a fall in November with rupture of her MCL with instability- continues to wear brace while up ambulating has f/u with ortho for further surgery per patient PT/OT consulted while inpatient (6) Left bundle branch block: Plan: Not acute (7) Asthma: Plan: Continue Albuterol Continue Spiriva- but symptoms and dyspnea likely related to #2 but she feels better with these (8) Diabetes mellitus, type 2: Plan: reported hx of? last A1c 5.6, pre-DM checks glucose at home but not on any medications - BG AC/HS- add coverage if > 180mg/dl (9) GERD (gastroesophageal reflux disease): Plan: Continue protonix 40mg daily Also scheduling KCL 20meq daily given K <3.5 past 2 days, mag wnl (10) Hypothyroidism: Plan: Continue Synthroid 125mcg daily TSH here normal also with hx of Bipolar listed in chart along with anxiety --> On topiramate 100mg BID, elavil 25mg HS, xanax 0.5mg BID prn --> Given pressured speech when discussing certain topics and tangential speech at times, consider f/u outpt with psych vs consultation with liason for emotional support +/- addition of mood stabilizer but given above will hold off for now --> monitor while on steroids --> She states she has monthly counseling, no needs for inpatient U liaison consultation at this time and encouraged close follow up/emotional support Plan: continued inpatient stay PT/OT consulted -- REFUSED [facility] POSSIBILITY. WOULD LIKE TO CONTINUE THERAPY AT HOME THROUGH ENERGY Admission and Anticipated Discharge Date Admission Date: January 05, 2022 Supervising Physician Co-Signing Physician Notes PA Supervision Note: I did not personally see or examine the patient today, but I verified all mcclure points of FAVIO Yost's assessment and plan with the following exceptions/additions: None Subjective Patient evaluated this morning Doing better Less cough, coughing up stuff but improved Utilizing her incentive spirometer/flutter valve but complaints of not having pen/paper to keep track how often she is doing these. Has a sticky note and I provided pen, will ask RN to provide tablet from admission pack. No fever/chills. Does have hard time dealin with disease/prognosis and talks with therapist monthly, endorses history of bipolar. Discussed update with son, she wants to ensure he is going to take it easy on her and not be so pushy. Discussed focusing on lungs/pulm rehab and can see how she does with PT/OT. Eating/drinking no issue. Passing gas but no BM yet, she states this is not unusual. She is wondering about an electric wheelchair. Noted could get wheeled if needed but would need to follow up with PCP. SHe states she can't use a regular one because her right arm from prior stroke. Discussed will continue to monitor progress with in place interventions and monitor response through weekend. Questions/concerns addressed. Review of Systems Review of Systems: All systems reviewed & are unremarkable except as noted in HPI & below Physical Exam Physical Exam: PHYSICAL EXAM: General: awake, alert, no apparent distress, sitting up in chair, on 4L NC, less cough Head normocephalic, atraumatic ENT: mm dry, trachea midline, no deviation, NO JVD Resp: scattered fine crackles throughout, less end expiratory wheezing bilaterally, no rales, on 4L NC, able to speak in complete sentences, no accessory muscle use, not tachypneic, no cough during examination CV: regular rate, rhythm, no m/r/g, no edema, pulses palpable, cap refill wnl GI: +BS, soft, non-tender : no acuna MSK: brace to R knee, NVI, no edema, calves non-tender Psych: aox3, anxious about prognosis at times and becomes easily excitable Results & Data Results & Data ([facility]) Vital Signs (Past 12 Hours) Vital Signs Temp Pulse Resp BP Pulse Ox 01/07/22 07:22 36.4 C L 68 18 111/71 96 01/06/22 22:18 36.7 C 74 16 120/77 96 Laboratory Results 01/07/22 01/07/22 01/07/22 Range/Units 11:54 08:06 08:04 WBC (4.8-10.8) K/uL RBC (4.2-5.4) M/uL Hgb (12.0-16.0) g/dL Hct (37-47) % MCV (80-100) fL MCH (25-34) pg MCHC (32-36) g/dL RDW Std Deviation (36.4-46.3) fL RDW Coeff of Ese (11.5-14.5) % Plt Count (130-400) K/uL MPV (7.4-10.4) fL Immature Gran % (Auto) % Neut % (Auto) % Lymph % (Auto) % [place] % (Auto) % Eos % (Auto) % Baso % (Auto) % Neut # (Auto) (1.4-6.5) K/uL Lymph # (Auto) (1.2-3.4) K/uL [place] # (Auto) (0.11-0.59) K/uL Eos # (Auto) (0-0.5) K/uL Baso # (Auto) (0-0.2) K/uL Immature Gran # (Auto) (0.00-0.02) K/uL Sodium (136-145) mmol/L Potassium (3.5-5.1) mmol/L Chloride (98-107) mmol/L Carbon Dioxide (21-32) mmol/L Anion Gap (3-11) BUN (6-23) mg/dl Creatinine (0.6-1.2) mg/dl Est Cr Clr Drug Dosing ml/min Est GFR ( Amer) ml/min Est GFR (Non-Af Amer) ml/min BUN/Creatinine Ratio (10-20) Glucose (70-99(Fasting)) mg/dl POC Glucose 161 H 93 (70-99) mg/dl Calcium (8.5-10.1) mg/dl Magnesium (1.7-2.4) mg/dl Procalcitonin < 0.05 (0-0.5) ng/ml 01/07/22 01/07/22 01/06/22 Range/Units 06:52 06:52 20:35 WBC 12.45 H (4.8-10.8) K/uL RBC 4.44 (4.2-5.4) M/uL Hgb 12.7 (12.0-16.0) g/dL Hct 39.6 (37-47) % MCV 89.2 (80-100) fL MCH 28.6 (25-34) pg MCHC 32.1 (32-36) g/dL RDW Std Deviation 46.2 (36.4-46.3) fL RDW Coeff of Ese 14.2 (11.5-14.5) % Plt Count 257 (130-400) K/uL MPV 10.9 H (7.4-10.4) fL Immature Gran % (Auto) 0.4 % Neut % (Auto) 73.6 % Lymph % (Auto) 17.8 % [place] % (Auto) 7.4 % Eos % (Auto) 0.6 % Baso % (Auto) 0.2 % Neut # (Auto) 9.18 H (1.4-6.5) K/uL Lymph # (Auto) 2.21 (1.2-3.4) K/uL [place] # (Auto) 0.92 H (0.11-0.59) K/uL Eos # (Auto) 0.07 (0-0.5) K/uL Baso # (Auto) 0.02 (0-0.2) K/uL Immature Gran # (Auto) 0.05 H (0.00-0.02) K/uL Sodium 137 (136-145) mmol/L Potassium 3.4 L (3.5-5.1) mmol/L Chloride 107 (98-107) mmol/L Carbon Dioxide 23 (21-32) mmol/L Anion Gap 7 (3-11) BUN 22 (6-23) mg/dl Creatinine 1.00 (0.6-1.2) mg/dl Est Cr Clr Drug Dosing 54.1 ml/min Est GFR ( Amer) 65.2 ml/min Est GFR (Non-Af Amer) 56.2 ml/min BUN/Creatinine Ratio 22.0 H (10-20) Glucose 110 H (70-99(Fasting)) mg/dl POC Glucose 162 H (70-99) mg/dl Calcium 9.2 (8.5-10.1) mg/dl Magnesium 1.9 (1.7-2.4) mg/dl Procalcitonin (0-0.5) ng/ml 01/06/22 Range/Units 16:53 WBC (4.8-10.8) K/uL RBC (4.2-5.4) M/uL Hgb (12.0-16.0) g/dL Hct (37-47) % MCV (80-100) fL MCH (25-34) pg MCHC (32-36) g/dL RDW Std Deviation (36.4-46.3) fL RDW Coeff of Ese (11.5-14.5) % Plt Count (130-400) K/uL MPV (7.4-10.4) fL Immature Gran % (Auto) % Neut % (Auto) % Lymph % (Auto) % [place] % (Auto) % Eos % (Auto) % Baso % (Auto) % Neut # (Auto) (1.4-6.5) K/uL Lymph # (Auto) (1.2-3.4) K/uL [place] # (Auto) (0.11-0.59) K/uL Eos # (Auto) (0-0.5) K/uL Baso # (Auto) (0-0.2) K/uL Immature Gran # (Auto) (0.00-0.02) K/uL Sodium (136-145) mmol/L Potassium (3.5-5.1) mmol/L Chloride (98-107) mmol/L Carbon Dioxide (21-32) mmol/L Anion Gap (3-11) BUN (6-23) mg/dl Creatinine (0.6-1.2) mg/dl Est Cr Clr Drug Dosing ml/min Est GFR ( Amer) ml/min Est GFR (Non-Af Amer) ml/min BUN/Creatinine Ratio (10-20) Glucose (70-99(Fasting)) mg/dl POC Glucose 126 H (70-99) mg/dl Calcium (8.5-10.1) mg/dl Magnesium (1.7-2.4) mg/dl Procalcitonin (0-0.5) ng/ml PG Care Time/CCT Total # of Minutes Spent Total Time Spent with Patient: Total time spent is greater than 50% in coordination of care (as documented) at patient's floor/unit and/or counseling patient: Coding Level of Care Code 49445 Subseq Hosp Care Lvl 2 Diagnoses Hypoxia R09.02 IPF (idiopathic pulmonary fibrosis) J84.112 PSVT (paroxysmal supraventricular tachycardia) I47.1 Cerebrovascular accident (CVA) of left thalamus I63.9 Status post right knee replacement Z96.651 Left bundle branch block I44.7 Asthma J45.909 Diabetes mellitus, type 2 E11.9 GERD (gastroesophageal reflux disease) K21.9 Hypothyroidism E03.9
[2022-01-07] MEDS: PANTOprazole 40 MG TAB PO SCH (08:21)
[2022-01-07] MEDS: TOPIRAMATE 100 MG TAB PO SCH ×2 (08:21→19:57)
[2022-01-07] MEDS: ATORVASTATIN 40 MG TAB PO SCH (08:21)
[2022-01-07] MEDS: methylPREDNISolone 40 MG in SYRINGE 0 ML IV SCH (08:21)
[2022-01-07] MEDS: APIXABAN 5 MG TABLET PO SCH ×2 (08:22→19:58)
[2022-01-07] MEDS: UMECLIDINIUM BROMIDE 62.5MCG/BLISTER 7 PUFFS/INHALER INH SCH (08:23)
[2022-01-07] MEDS ORDERED: MAGNESIUM SULFATE / D5W 1 GM/100 ML BAG IV ONE (09:00)
[2022-01-07] MEDS: METOPROLOL TARTRATE 25 MG TAB PO SCH ×2 (10:18→19:57)
[2022-01-07] MEDS: POTASSIUM CHLORIDE CRTAB 20 MEQ TABCR PO SCH (10:18)
--- NOTE | 2022-01-07 12:13 | Electrocardiogram Report ---
Test Reason : Blood Pressure : / mmHG Vent. Rate : 070 BPM Atrial Rate : 070 BPM P-R Int : 202 ms QRS Dur : 116 ms QT Int : 416 ms P-R-T Axes : 046 -30 087 degrees QTc Int : 449 ms Normal sinus rhythm Left axis deviation Anterior infarct (cited on or before 06-JAN-2022) Abnormal ECG When compared with ECG of 05-JAN-2022 16:09, No significant change was found Confirmed by Sherman Campos ([id number] on 01/07/2022 12:13:04 PM Referred By: REFERRED SELF Confirmed By:Sherman Campos
[2022-01-07] MEDS: AMITRIPTYLINE HCL 25 MG TAB PO SCH (19:57)
[2022-01-07] MEDS: ALPRAZolam 0.5 MG TABLET PO PRN (20:01)
[2022-01-08] MEDS: LEVOTHYROXINE SODIUM 125 MCG TABLET PO SCH (05:55)
[2022-01-08 07:28] LABS: Basophils # (auto) 0.03 K/uL (0-0.2); Basophils % (auto) 0.3 %; Eosinophils # (auto) 0.19 K/uL (0-0.5); Eosinophils % (auto) 1.8 %; Hematocrit (blood only) 40.1 % (37-47); Hemoglobin 12.8 g/dL (12.0-16.0); Immature Granulocytes # (auto) 0.05 K/uL (0.00-0.02); Immature Granulocytes % (auto) 0.5 %; Lymphocytes # (auto) 2.55 K/uL (1.2-3.4); Lymphocytes % (auto) 24.2 %; Mean Corpuscular Hemoglobin 28.8 pg (25-34); Mean Corpuscular Hgb Conc 31.9 g/dL (32-36); Mean Corpuscular Volume 90.1 fL (80-100); Mean Platelet Volume 10.9 fL (7.4-10.4); Monocytes # (auto) 1.12 K/uL (0.11-0.59); Monocytes % (auto) 10.6 %; Neutrophils % (auto) 62.6 %; Platelet Count 249 K/uL (130-400); RDW Coefficient of Variation 14.4 % (11.5-14.5); RDW Standard Deviation 47.2 fL (36.4-46.3); Red Blood Count 4.45 M/uL (4.2-5.4); White Blood Count 10.54 K/uL (4.8-10.8)
[2022-01-08 07:48] LABS: BUN Creatinine Ratio 26.6 (10-20); Calcium 8.9 mg/dl (8.5-10.1); Creatinine Clr Calc Pharmacy 57.6 ml/min; Est GFR (African American) 70.2 ml/min; Est GFR (Non-African American) 60.6 ml/min; Magnesium 2.1 mg/dl (1.7-2.4); Potassium 3.6 mmol/L (3.5-5.1)
[2022-01-08] MEDS: METOPROLOL TARTRATE 25 MG TAB PO SCH ×2 (08:07→19:55)
[2022-01-08] MEDS: APIXABAN 5 MG TABLET PO SCH ×2 (08:07→19:56)
[2022-01-08] MEDS: POTASSIUM CHLORIDE CRTAB 20 MEQ TABCR PO SCH (08:09)
[2022-01-08] MEDS: TOPIRAMATE 100 MG TAB PO SCH ×2 (08:09→19:56)
[2022-01-08] MEDS: PANTOprazole 40 MG TAB PO SCH (08:09)
[2022-01-08] MEDS: ATORVASTATIN 40 MG TAB PO SCH (08:09)
[2022-01-08] MEDS: methylPREDNISolone 40 MG in SYRINGE 0 ML IV SCH (08:10)
[2022-01-08] MEDS: UMECLIDINIUM BROMIDE 62.5MCG/BLISTER 7 PUFFS/INHALER INH SCH (08:10)
--- NOTE | 2022-01-08 08:33 | Hospitalist Progress Note ---
Date of Service January 08, 2022 Assessment & Plan (1) Hypoxia: Plan: Dyspnea and hypoxia without fevers, WBC count normal, normal NLR, no opacities on CXR Does not appear infectious, no elevation in WBC, afebrile Hx COVID-19 last December 2020, negative on admission Recent CTA Nov 2021, repeated on admission. NEGATIVE for PE--> However, there is extensive idiopathic interstitial lung disease with honeycombing present Hgb stable Pulmonary consulted * --> discussed with Dr Campbell who did not feel after review any significant changes compared to prior HRCT in Nov 2021 and doubts severe acute exacerbation of her IPF * Started Solumedrol 40mg IV for couple of days and transition to prednisone at d/c. Recs rehab and pulmonary rehab at discharge * --> consider changing to prednisone after dose tomorrow as ordered by Dr Campbell, vs instead of and titrate as able at discharge. xanax increased to TID given increased jordan with patient with hx bipolar * No indication for bronchoscopy at this time. * TSH wnl but low normal * BNP without elevation * Procalcitonin NEGATIVE * Iron studies obtained -- iron normal/low trans%sat. * B12 wnl, folate low end of normal, could consider placing on supplementation/MVI * Trop negative * ?formal sleep study for SUNITHA outpatient He does believe she will require more than her usual amount of home oxygen -- had been using 2L NC at home (self increased to 3L NC [employer]) and currently on 1L at rest Continue incentive spirometer, flutter valve Monitor sputum cx -- GS with many epi, mod gram positive cocci, few gram neg bacilli, few gram positive bacilli, rare WBC seen. Final cx pending Supplemental O2 to maintain sats -- 92% on 1L at rest --> Ambulatory pulse ox today for check, official 2 step in AM official 2 step prior to d/c to demonstrate any changes in baseline needs. CM following Outpatient f/u with Pulmonary for considerations for medications to consider antifibrinolytics and is to have PFTs in January Updated son on phone evening 01/06 -- multiple skepticism based on stories from mother/things that happened and didn't in past and just wanted clarification. Patient did want me to update him on plan and information provided. He said prior his mom was walking 2-3 miles daily in [place] but over the past year she almost refuses to move around and almost "likes to be ill". Did discuss fibrosis and yes, patient did desaturate when up and going to bathroom and she very well may require lifelong oxygen as this is not reversible process, and could have been worsened by COVID infection last year. Continue to monitor (2) IPF (idiopathic pulmonary fibrosis): Plan: Likely progression of her interstitial disease- she has history of COVID 01/02 PFTs in july, inconclusive. She states she is to have additional lung testing in January Preliminary work-up for IPF/UIP Jul 2021 --> negative for everything Steroids per pulmonary --> solu-medrol 40mg daily and monitor --> reported improvement in cough and chest tightness. Stable on 1L and will titrate O2 to maintain sats but having anxiety. Xanax prn as discussed with patient --> Plans to change to prednisone tomorrow vs Sunday but will message Dr Campbell Restarted home eliquis (missed dose this AM as on hold for possible bronch with pulm) (3) PSVT (paroxysmal supraventricular tachycardia): Plan: Patient has loop recorder in place for afib concerns from cryptogenic CVA -- per report has had 11AF events, but may be false events due to PVCs and undersensing Eliquis resumed Continue metoprolol 25mg BID No palpitations/chest pain reported today. HR 70s during exam (4) Cerebrovascular accident (CVA) of left thalamus: Plan: History of in June 04, on eliquis --> since resumed. ASA discontinued given CVA likely cardioembolic Continue statin BP control (5) Status post right knee replacement: Plan: s/p TKA and had a fall in November with rupture of her MCL with instability- continues to wear brace while up ambulating has f/u with ortho for further surgery per patient PT/OT consulted while inpatient (6) Left bundle branch block: Plan: Not acute (7) Asthma: Plan: Continue Albuterol Continue Spiriva- but symptoms and dyspnea likely related to #2 but she feels better with these (8) Diabetes mellitus, type 2: Plan: reported hx of? last A1c 5.6, pre-DM checks glucose at home but not on any medications - BG AC/HS- add coverage if > 180mg/dl (9) GERD (gastroesophageal reflux disease): Plan: Continue protonix 40mg daily Also scheduled KCL 20meq daily given K <3.5 past 2 days, mag wnl --> would continue this at discharge given has been stable with daily supp but can monitor in AM (10) Hypothyroidism: Plan: Continue Synthroid 125mcg daily TSH here normal also with hx of Bipolar listed in chart along with anxiety --> On topiramate 100mg BID, elavil 25mg HS, xanax 0.5mg BID prn --> Given pressured speech when discussing certain topics and tangential speech at times, consider f/u outpt with psych vs consultation with liason for emotional support +/- addition of mood stabilizer but given above will hold off for now --> monitor while on steroids --increased jordan, increased xanax. consider consult but patient DECLINED OFFERED DAILY consult w/ U liason --> close f/u at discharge given emotionally labile patient and having hard time with diagnosis --> She states she has monthly counseling, no needs for inpatient U liaison consultation at this time and encouraged close follow up/emotional support Plan: PT/OT consulted -- REFUSED [facility] POSSIBILITY. WOULD LIKE TO CONTINUE THERAPY AT HOME THROUGH ENERGY ?2step in AM and transition to prednisone/discharge Admission and Anticipated Discharge Date Admission Date: January 05, 2022 Supervising Physician Co-Signing Physician Notes FAVIO Supervision Note: I did not personally see or examine the patient today, but I verified all mcclure points of FAVIO Yost's assessment and plan with the following exceptions/additions: None Subjective Patient evaluated this morning.Upset last night and had anxiety with steroids and not wanting to continue at home. Discussed not lifelong. She is improved in mood after knowing not life long. Will plan to switch to prednisone in am and attempt quickly taper. Xanax given last night, can increase to Q8H as needed. Emotional labile. Declines need to talk with anyone. Coughing up thick mucus yesterday, nothing today. She feels she does have better air movement. She is nervous about her O2 being titrated down. Discussed lowest possible to maintain sats and will have them take for walk in [place] to see how oxygen levels are and official 2 step tomorrow with possible discharge home? vs with family support. Given she continues to decline rehab. Physical Exam Physical Exam: PHYSICAL EXAM: General: awake, alert, no apparent distress, sitting up in chair, on 1L NC, NO COUGH witnessed Head normocephalic, atraumatic ENT: mmm, trachea midline, no deviation, NO JVD Resp: scattered fine crackles throughout, less end expiratory wheezing bilaterally, IMPROVEMENT in air entry bilaterally, no rales, on 1L NC, able to speak in complete sentences, no accessory muscle use, not tachypneic, no cough during examination CV: regular rate, rhythm, no m/r/g, no edema, pulses palpable, cap refill wnl GI: +BS, soft, non-tender : no acuna MSK: brace to R knee, NVI, no edema, calves non-tender Psych: aox3, anxious and labile at times Results & Data Results & Data ([facility]) Vital Signs (Past 12 Hours) Vital Signs Temp Pulse Resp BP Pulse Ox 01/08/22 07:45 36.6 C 62 16 114/75 92 01/07/22 22:19 36.4 C L 67 16 109/71 91 Laboratory Results 01/08/22 01/08/22 01/08/22 Range/Units 08:09 06:48 06:48 WBC 10.54 (4.8-10.8) K/uL RBC 4.45 (4.2-5.4) M/uL Hgb 12.8 (12.0-16.0) g/dL Hct 40.1 (37-47) % MCV 90.1 (80-100) fL MCH 28.8 (25-34) pg MCHC 31.9 L (32-36) g/dL RDW Std Deviation 47.2 H (36.4-46.3) fL RDW Coeff of Ese 14.4 (11.5-14.5) % Plt Count 249 (130-400) K/uL MPV 10.9 H (7.4-10.4) fL Immature Gran % (Auto) 0.5 % Neut % (Auto) 62.6 % Lymph % (Auto) 24.2 % [place] % (Auto) 10.6 % Eos % (Auto) 1.8 % Baso % (Auto) 0.3 % Neut # (Auto) 6.60 H (1.4-6.5) K/uL Lymph # (Auto) 2.55 (1.2-3.4) K/uL [place] # (Auto) 1.12 H (0.11-0.59) K/uL Eos # (Auto) 0.19 (0-0.5) K/uL Baso # (Auto) 0.03 (0-0.2) K/uL Immature Gran # (Auto) 0.05 H (0.00-0.02) K/uL Sodium 139 (136-145) mmol/L Potassium 3.6 (3.5-5.1) mmol/L Chloride 109 H (98-107) mmol/L Carbon Dioxide 23 (21-32) mmol/L Anion Gap 7 (3-11) BUN 25 H (6-23) mg/dl Creatinine 0.94 (0.6-1.2) mg/dl Est Cr Clr Drug Dosing 57.6 ml/min Est GFR ( Amer) 70.2 ml/min Est GFR (Non-Af Amer) 60.6 ml/min BUN/Creatinine Ratio 26.6 H (10-20) Glucose 90 (70-99(Fasting)) mg/dl POC Glucose 85 (70-99) mg/dl Calcium 8.9 (8.5-10.1) mg/dl Magnesium 2.1 (1.7-2.4) mg/dl 01/07/22 01/07/22 01/07/22 Range/Units 20:37 17:07 11:54 WBC (4.8-10.8) K/uL RBC (4.2-5.4) M/uL Hgb (12.0-16.0) g/dL Hct (37-47) % MCV (80-100) fL MCH (25-34) pg MCHC (32-36) g/dL RDW Std Deviation (36.4-46.3) fL RDW Coeff of Ese (11.5-14.5) % Plt Count (130-400) K/uL MPV (7.4-10.4) fL Immature Gran % (Auto) % Neut % (Auto) % Lymph % (Auto) % [place] % (Auto) % Eos % (Auto) % Baso % (Auto) % Neut # (Auto) (1.4-6.5) K/uL Lymph # (Auto) (1.2-3.4) K/uL [place] # (Auto) (0.11-0.59) K/uL Eos # (Auto) (0-0.5) K/uL Baso # (Auto) (0-0.2) K/uL Immature Gran # (Auto) (0.00-0.02) K/uL Sodium (136-145) mmol/L Potassium (3.5-5.1) mmol/L Chloride (98-107) mmol/L Carbon Dioxide (21-32) mmol/L Anion Gap (3-11) BUN (6-23) mg/dl Creatinine (0.6-1.2) mg/dl Est Cr Clr Drug Dosing ml/min Est GFR ( Amer) ml/min Est GFR (Non-Af Amer) ml/min BUN/Creatinine Ratio (10-20) Glucose (70-99(Fasting)) mg/dl POC Glucose 111 H 115 H 161 H (70-99) mg/dl Calcium (8.5-10.1) mg/dl Magnesium (1.7-2.4) mg/dl PG Care Time/CCT Total # of Minutes Spent Total Time Spent with Patient: Total time spent is greater than 50% in coordination of care (as documented) at patient's floor/unit and/or counseling patient: Coding Level of Care Code 42351 Subseq Hosp Care Lvl 2 Diagnoses Hypoxia R09.02 IPF (idiopathic pulmonary fibrosis) J84.112 PSVT (paroxysmal supraventricular tachycardia) I47.1 Cerebrovascular accident (CVA) of left thalamus I63.9 Status post right knee replacement Z96.651 Left bundle branch block I44.7 Asthma J45.909 Diabetes mellitus, type 2 E11.9 GERD (gastroesophageal reflux disease) K21.9 Hypothyroidism E03.9
--- NOTE | 2022-01-08 08:51 | Pulmonology Progress Note ---
Date of Service January 08, 2022 Assessment & Plan (1) Acute on chronic respiratory failure with hypoxemia: (2) SOB (shortness of breath): (3) Pulmonary fibrosis: Plan: CT chest 01/05/2022 personally reviewed: Increase peripheral reticular markings upper and lower lobes No clear lung infiltrate appreciated Minimal mediastinal lymphadenopathy which is unchanged I do not see any significant groundglass opacities to think of acute exace rbation of IPF --Acute on chronic hypoxic respiratory failure CT chest does not show any significant groundglass opacities or significant change compared to previous HRCT done in November 2021 I doubt this is severe acute exacerbation of IPF Agree with continuing Solu-Medrol 40 mg for couple of days and then transitioning to p.o. prednisone BNP 67 TSH: 0.35 Procalcitonin negative No clear signs of pulmonary infiltrate No indication for bronchoscopy --IPF Extensive autoimmune work-up was negative for everything 08/03/21 Patient to follow-up with Dr. Romero as an outpatient to consider antifibrinolytic She is also scheduled to have PFTs done mid January 2022 --Generalized lethargy Patient has hypothyroidism, order TSH Sleep apnea is also a possibility Outpatient polysomnography should be considered --DNR/DNI Plan: Patient's oxygen requirement has gone down significantly Continue with Solu-Medrol. Transition to p.o. prednisone 40 mg for 3 days followed by 20 mg for 3 days and then stop Outpatient follow-up with Dr. Romero Pulmonary rehab as an outpatient O2 supplementation to keep oxygen between 88-92% Case discussed with Priyank Summers No further recommendation from pulmonary perspective, will sign off Please call directly with any questions Please note the above document was generated using voice recognition software. It may contain grammatical, syntax or spelling errors.Any formal questions or concerns about the content, text or information contained within the body of this dictation should be directly addressed to the provider for clarification. Admission and Anticipated Discharge Date Admission Date: January 05, 2022 Subjective Patient seen and examined at bedside. No acute distress, no adverse events overnight Patient oxygen requirement has significantly improved compared to before Denies any chest pain Has been using the incentive spirometry She got Xanax last night to help her sleep She she stated that she was more groggy in the morning Review of Systems Review of Systems: All systems reviewed & are unremarkable except as noted in Subjective Physical Exam Physical Exam: Constitutional: No acute distress HEENT: EOMI, PERRLA Respiratory system: Decreased air entry bilaterally, no wheeze, no rhonchi, positive crackles bilaterally (Velcro-like) CVS: S1-S2 positive, no murmurs or gallops, accentuated P2 Abdomen: Soft, nontender, nondistended, positive bowel sounds x4 Extremities: +2 pulses bilaterally radialis/ dorsalis pedis, no cyanosis, no edema Neuro: Awake alert oriented x3 Psych: Normal mood and affect G/U: No Burks Skin: no rashes, warm and dry Lymphatic: no cervical or axillary lymphadenopathy Results & Data Results & Data ([facility]) Vital Signs (Past 12 Hours) Vital Signs Temp Pulse Resp BP Pulse Ox 01/08/22 07:45 36.6 C 62 16 114/75 92 01/07/22 22:19 36.4 C L 67 16 109/71 91 Laboratory Results 01/08/22 06:48 01/08/22 06:48 PG Care Time/CCT Total # of Minutes Spent Total Time Spent with Patient: Total time spent is greater than 50% in coordination of care (as documented) at patient's floor/unit and/or counseling patient: Coding Level of Care Code 97800 Subseq Hosp Care Lvl 2 Diagnoses Acute on chronic respiratory failure with hypoxemia J96.21 SOB (shortness of breath) R06.02 Pulmonary fibrosis J84.10
[2022-01-08] MEDS ORDERED: ALPRAZolam 0.5 MG TABLET PO PRN ×2 (09:45→14:28)
[2022-01-08] MEDS ORDERED: ALPRAZolam 0.5 MG TABLET PO SCH (14:30)
[2022-01-08] MEDS: AMITRIPTYLINE HCL 25 MG TAB PO SCH (19:56)
[2022-01-09] MEDS: LEVOTHYROXINE SODIUM 125 MCG TABLET PO SCH (05:58)
[2022-01-09] MEDS: APIXABAN 5 MG TABLET PO SCH ×2 (08:05→20:47)
[2022-01-09] MEDS: ATORVASTATIN 40 MG TAB PO SCH (08:05)
[2022-01-09] MEDS: METOPROLOL TARTRATE 25 MG TAB PO SCH ×2 (08:05→20:48)
[2022-01-09] MEDS: PANTOprazole 40 MG TAB PO SCH (08:05)
[2022-01-09] MEDS: TOPIRAMATE 100 MG TAB PO SCH ×2 (08:05→20:47)
[2022-01-09] MEDS: POTASSIUM CHLORIDE CRTAB 20 MEQ TABCR PO SCH (08:05)
[2022-01-09] MEDS: predniSONE 20 MG TAB PO SCH (08:05)
[2022-01-09] MEDS: UMECLIDINIUM BROMIDE 62.5MCG/BLISTER 7 PUFFS/INHALER INH SCH (08:06)
--- NOTE | 2022-01-09 15:47 | Hospitalist Progress Note ---
Date of Service January 09, 2022 Assessment & Plan (1) SOB (shortness of breath): Plan: Mrs. Ye is a 71-year-old white female with an underlying past medical history of idiopathic pulmonary fibrosis and asthma along with a past history of COVID- 19 in 2020. She presented with increasing shortness of breath. Supplemental oxygen recently ordered to be used with ambulation; however, patient requiring supplemental oxygen at all times. - Upon presentation to the ED, patient's pulse ox was 97% on 3 L - Covid 19, Influenza: Negative -CXR: stable interstitial thickening suggestive of interstitial lung disease. No acute pathology - CTA: no PE, no acute cardiopulmonary dz. Extensive honeycombing consistent with interstitial lung disease. - BNP WNL: 67 - procalcitonin negative - thought to be 2/2 acute exacerbation of TPF- see below (2) Acute exacerbation of idiopathic pulmonary fibrosis: Plan: - patient continued on her supplemental O2 to maintain a pulse ox of >/=88% - she was treated with IV steroids, aggressive pulmonary toilet, and mucolytic agents - Pulmonary consultedappreciate assistance. Agreed with taper of prednisone. They will follow her as an outpatient--> to consider antifibrinolytic therapy --no indication for bronchoscopy at this time - It was recommended that she go to [facility] for pulmonary rehab; however, adamantly refused (used profanity when saying she would never go to that place) - It is suspected that her recent history of Covid has likely caused further progression of her pulmonary fibrosis. To what extent, that is unclear -When seen on daily rounds 01/09, was requiring only 1 L of supplemental oxygen to maintain a pulse ox of 90 to 97%. With ambulation, she requires 3 L. She has improved air exchange without adventitious breath sounds today. She denies any shortness of breath or dyspnea on exertion. At this point, I feel that she is medically hemodynamically stable for discharge to home. Her discharge was prepared but she refused to accept it and now wants to look at other options. There are no other facilities that provide pulmonary rehab and she does not require [facility] facility for physical rehab as she is independent. She is now requesting referral to [facility] and is agreeable. - continue tapering course of prednisone. Takes spiriva routinely. Add Symbicort (rinse mouth after use). FU with Pulm as scheduled (3) Hypoxia: Plan: -Secondary to #2 (4) Cerebrovascular accident (CVA) of left thalamus: Plan: - thought to be embolic - History of SVT. There was question of A.Fib--Loop recorder in place - on BB - Remains on Eliquis and statin therapy (5) Bipolar disorder: Plan: - ultimately, prednisone may heighten her jordan but necessary. Will taper quickly - continue xanax, Elavil, Topamax, (6) Diabetes mellitus, type 2: Plan: - diet controlled - Blood sugars acceptable despite prednisone on board ([phone]) (7) Hypothyroidism: Plan: - Continue Synthroid - TSH: 0.357 Plan: Patient is medically and hemodynamically stable for discharge to home. She has been refusing [facility] up until this point (for pulmonary rehab) and unfortunately pulmonary rehab not offered at other facilities. She does not qualify for [facility] facility. After discharge prepared, she is now agreeable to [facility]. Case management has put a referral out. They can accept her tomorrow. Admission and Anticipated Discharge Date Admission Date: January 05, 2022 Subjective Patient seen on daily rounds today. Many complaints but none related to her reason for hospitalization. She has been requiring up to 1 L of supplemental oxygen at rest. Again, wears supplemental oxygen chronically as high as 3 L. With ambulating today, she needed at most 3 L to maintain a pulse ox >/=88%. Pulmonology has been following and her shortness of breath was thought to be related to a flareup of her idiopathic fibrosis. In addition, her baseline lung function is unknown. She had Covid in December 2020. It is suspected that she may have residual lung disease from this. She has a follow-up scheduled with pulmonology next week. She remains on steroids and continues to show favorable response. It was recommended that she be discharged to [facility] for pulmonary rehab however she has been adamantly refusing. She is ambulating independently and plan was to discharge to home as she does not qualify for [facility] facility. After the discharge was prepared, she refused to accept the discharge and wanted to go to [facility]. Case management has made referrals. They can accept her tomorrow. Review of Systems Review of Systems: All systems reviewed and are unremarkable except as noted in HPI and below Denies fevers, chills, headache, nasal congestion, sore throat, cough, chest pain, shortness of breath, palpitations, orthopnea, PND, abdominal pain, nausea, vomiting, diarrhea, constipation, dysuria, hematuria, frequency, back pain, joint pain or swelling, easy bruising or bleeding, skin lesions or rashes. Physical Exam Physical Exam: General: Resting comfortably in her hospital bed. Easily annoyed. In no acute distress HEENT: Head is AT/NC. Buccal mucosa is moist and pink Neck: No JVD. Negative hepatojugular reflex Cardiac: RRR without M/G/R Lungs: Speaking full sentences on supplemental oxygen. Normal respiratory effort. Diminished breath sounds throughout without wheezes, rales or rhonchi Abdomen: Normoactive X4. Soft and nontender in all quadrants. Extremities: Mild adiposity of the bilateral lower extremities without true pitting edema Neuro: A&O X4. Cranial nerves II through XII are grossly intact. No focal neuro deficits Skin: No obvious skin lesions or rashes Psych: Appropriate affect. Again, easily annoyed Results & Data Results & Data ([facility]) Vital Signs (Past 12 Hours) Vital Signs Temp Pulse Resp BP BP Pulse Ox 01/09/22 13:46 36.4 C L 61 16 132/83 115/72 91 01/09/22 07:27 36.4 C L 61 16 132/83 91 Laboratory Results No lab data today PG Care Time/CCT Total # of Minutes Spent Total Time Spent with Patient: Total time spent is greater than 50% in coordination of care (as documented) at patient's floor/unit and/or counseling patient: Coding Level of Care Code 89058 Subseq Hosp Care Lvl 2 Diagnoses Acute exacerbation of idiopathic pulmonary fibrosis J84.112 SOB (shortness of breath) R06.02 Hypoxia R09.02 Cerebrovascular accident (CVA) of left thalamus I63.9 Bipolar disorder F31.9 Diabetes mellitus, type 2 E11.9 Hypothyroidism E03.9
[2022-01-09] MEDS: AMITRIPTYLINE HCL 25 MG TAB PO SCH (20:48)
[2022-01-10] MEDS: LEVOTHYROXINE SODIUM 125 MCG TABLET PO SCH (05:53)
[2022-01-10] MEDS: UMECLIDINIUM BROMIDE 62.5MCG/BLISTER 7 PUFFS/INHALER INH SCH (08:12)
[2022-01-10] MEDS: APIXABAN 5 MG TABLET PO SCH (08:13)
[2022-01-10] MEDS: POTASSIUM CHLORIDE CRTAB 20 MEQ TABCR PO SCH (08:13)
[2022-01-10] MEDS: METOPROLOL TARTRATE 25 MG TAB PO SCH (08:13)
[2022-01-10] MEDS: predniSONE 20 MG TAB PO SCH (08:13)
[2022-01-10] MEDS: PANTOprazole 40 MG TAB PO SCH (08:13)
[2022-01-10] MEDS: TOPIRAMATE 100 MG TAB PO SCH (08:13)
[2022-01-10] MEDS: ATORVASTATIN 40 MG TAB PO SCH (08:13)
[2022-01-10] MEDS ORDERED: CEFDINIR 300 MG CAP PO SCH (12:00)
--- NOTE | 2022-01-10 12:38 | Discharge Summary ---
Date of Service January 10, 2022 Admission HPI Per Admitting Provider 71 YOF with past medical history: Left Thalmic CVA, PSVT (with loop recorder), LBBB, Asthma, Interstitial lung disease, Likely Pulmonary Fibrosis, Asthma, COVID 19 (01/02) Right Total Knee Replacement, Anxiety, Depression, DMII, GERD, Hypothyroidism, IBS, Spinal Stenosis, Afib(on apixaban). Patient comes to the EMD today referred from her primary care physician for hypoxia and increasing oxygen use. The patient reports that over the past week she has been having increased shortness of breath with cough, she has been transitioned to oxygen continuous at home during this time by her PCP. She reports getting short of breath just from getting up and going to the bathroom, she reports her oxygen saturation as 82% at home. She has not had any fevers, pleuritic chest pain, she is coughing up thick sputum with various colors from white, yellow, brown and sometimes with blood. She reports having an albuterol inhaler which made her feel somewhat better and Telson Perles as well as Spiriva with some effect on her cough. The patient has underlying lung disease and had a workup initiated by pulmonary for IPF, with inconclusive spirometry. She was to follow up in January for repeat PFTs. She has not had bronchoscopy evaluation with biopsy performed. Patient is anxious and upset because she can't breathe as well as she is unsure of her actual lung disease or prognosis/expectancy. In the EMD the patient had CTA of chest performed and was given 60mg of MethylPRed, and albuterol neb by EMD. Her CTA was reported as negative for PE, no other acute process, but continued to note extensive idiopathic interstitial lung disease with honeycombing. Her COVID and Influenza tests were negative. The patient will be admitted, obtain sputum sample, continue nebulizer, and pulmonary consultation for her underlying lung disease. Principal Diagnosis 1. Acute Flare of Fibrosis 2. Acute Pneumonitis- (Haemophilus influenza) Discharge Exam General: Resting comfortably in her hospital bed. Easily annoyed. In no acute distress HEENT: Head is AT/NC. Buccal mucosa is moist and pink Neck: No JVD. Negative hepatojugular reflex Cardiac: RRR without M/G/R Lungs: Speaking full sentences on supplemental oxygen. Normal respiratory effort. Diminished breath sounds with scattered crackles throughout. Faint expiratory wheezes in the bases. Abdomen: Normoactive X4. Soft and nontender in all quadrants. Extremities: Mild adiposity of the bilateral lower extremities without true pitting edema Neuro: A&O X4. Cranial nerves II through XII are grossly intact. No focal neuro deficits Skin: No obvious skin lesions or rashes Psych: Appropriate affect. Again, easily annoyed Discharge Data Allergies Allergy/AdvReac Type Severity Reaction Status Date / Time latex Allergy Intermediate Rash Verified 01/05/22 17:04 Sulfa (Sulfonamide Allergy Intermediate RASH Verified 01/05/22 17:04 Antibiotics) Penicillins Allergy Unknown PT DOES Verified 01/10/22 11:28 NOT REMEMBER, REACTION WAS TEENAGER morphine AdvReac Intermediate Anxiety Verified 01/05/22 17:04 Consultations 01/05/22 23:29 Consult Pulmonology Routine 01/08/22 14:11 Consult Behavioral Health Liaison Routine Ordered Studies 01/05/22 17:18 CT angio chest PE protocol Stat Impression: 1. No CTA evidence for pulmonary embolus. 2. No acute chest disease. 3. However, there is extensive idiopathic interstitial lung disease with honeycombing present. 4. Additional nonacute findings are delineated above. Copy To: Mary Prieto D.O. Source: Sputum, Expectorated OV Order: Ordered: Sputum Cult/Smr Procedure Result Verified Site Gram Stain Final 01/07/22 Gram Stain Result Many Epithelial Cells Moderate Gram Positive Cocci Few Gram Negative Bacilli Few Gram Positive Bacilli Rare WBCs Seen Sputum Culture Final 01/10/22-805 Organism 1 Haemo.influ betalactamase neg Quantity Few Sens No Sensitivities to Follow Normal Catie Light Normal Catie Hospital Course (1) SOB (shortness of breath): Mrs. Ye is a 71-year-old white female with an underlying past medical history of idiopathic pulmonary fibrosis and asthma along with a past history of COVID-19 in 2020. She presented with increasing shortness of breath. Supplemental oxygen recently ordered to be used with ambulation; however, patient requiring supplemental oxygen at all times. - Upon presentation to the ED, patient's pulse ox was 97% on 3 L - Covid 19, Influenza: Negative -CXR: stable interstitial thickening suggestive of interstitial lung disease. No acute pathology - CTA: no PE, no acute cardiopulmonary dz. Extensive honeycombing consistent with interstitial lung disease. - BNP WNL: 67 - procalcitonin negative - thought to be 2/2 acute exacerbation of TPF and Acute Pnuemonitis- see below (2) Acute exacerbation of idiopathic pulmonary fibrosis: - patient continued on her supplemental O2 to maintain a pulse ox of >/=88% - she was treated with IV steroids, aggressive pulmonary toilet, and mucolytic agents - Pulmonary consultedappreciate assistance. Agreed with taper of prednisone. They will follow her as an outpatient--> to consider antifibrinolytic therapy --no indication for bronchoscopy at this time - It is suspected that her recent history of Covid has likely caused further progression of her pulmonary fibrosis. To what extent, that is unclear - patient responded favorably. [facility] for Pulmonary rehab recommended but patient adamantly refused. It wasn't until her discharge for home was prepared (on 01/09) that she decided to go for rehab. - continue tapering course of prednisone. Takes spiriva routinely. Symbicort added (rinse mouth after use). FU with Pulm as scheduled (3) Pneumonitis: - no obvious clinical suspicion on infection upon arrival (afebrile, normal procal, no leukocytosis) - CTA without infiltrate - Sputum culture showing Haemophilus influenza. Patient is penicillin allergic. Started on cefdinir. Continue this for a total of 7 days (4) Hypoxia: -Secondary to #2/3 (5) Cerebrovascular accident (CVA) of left thalamus: - thought to be embolic - History of SVT. There was question of A.Fib--Loop recorder in place - on BB - Remains on Eliquis and statin therapy (6) Bipolar disorder: - ultimately, prednisone may heighten her jordan but necessary. Will taper quickly - continue xanax, Elavil, Topamax, (7) Diabetes mellitus, type 2: - diet controlled - Blood sugars acceptable despite prednisone on board ([phone]) (8) Hypothyroidism: - Continue Synthroid - TSH: 0.357 Initially refused [facility] for Pulmonary rehab but now agreeable. D/C today Total Time Total Time Spent Total Time Spent (In Minutes): 35 min Discharge Plan Discharge Items Patient Disposition: Home - Home Health Services Reason For Visit: DYSPNEA, OXYGEN INCREASE Discharge Diagnosis: 1. Acute Flare of Fibrosis 2. Acute Pneumonitis- H.Flu in Sputum Culture Condition on Discharge: Fair Activity: Resume your previous activity Activity Comment: as tolerated with supplemental O2 Non-emergency contact: Primary Care Provider and Vp Purchasing Call non-emergency contact if: you have any medication questions Follow-up/Referrals: Joseph Romero MD [Physician] - Ted Singh MD [Primary Care Provider] - Diet: Regular and Heart Healthy Addtl Attending Provider Instructions: You were hospitalized with increased shortness of breath and low oxygen levels. It is felt that you are likely having a flareup of your pulmonary fibrosis. Could have progression of disease with your history of Covid. You are to complete a full course of Prednisone (40 mg daily X 3 days, then 20 mg daily X 3 days, then stop) as outlined by pulmonology--> start tomorrow (01/10) In the addition to your Spiriva, you have been started on Symbicort to use 1 puff inhalation twice a day. It is important to rinse your mouth out after using this to prevent thrush (a yeast infection in your mouth). You can just r inse with regular water. You are to follow up with Pulmonology as scheduled for further Pulmonary workup Use your supplemental O2 to keep your pulse Ox >/=88%. You are only requiring up to 1L at rest and up to 3L when walking I know that you wanted a motorized scooter. This will have to be discussed with your family Physician as there is a lengthy form and specific exam to qualify you for one of these (through the insurance) Return to the ED for new or worsening symptoms Follow up with PCP: 7-10 days and with Pulmonology as scheduled Pending Studies at Discharge: No Stand-Alone Forms: My [employer], Smoking Cessation Medications and DC Order Prescriptions: New budesonide-formoterol [Symbicort] 160-4.5 mcg/actuation HFA aerosol inhaler 1 inh inhalation BID Qty: 10.2 RF: 0 cefdinir 300 mg Capsule 300 mg PO BID Qty: 13 RF: 0 prednisone 20 mg tablet 20 mg PO DAILY Qty: 5 RF: 0 Continued (DME) OneTouch Ultra Test Strip See Rx Instructions .Route Qty: 100 RF: 3 (DME) blood-glucose meter [OneTouch Ultra2 Meter] Kit See Rx Instructions .Route Qty: 1 RF: 0 (DME) lancets [OneTouch Delica Lancets] 33 gauge misc See Rx Instructions .Route Qty: 100 RF: 3 pantoprazole 40 mg tablet,delayed release (DR/EC) 40 mg PO QAM Qty: 90 RF: 3 Eliquis 5 mg tablet 5 mg PO BID Qty: 180 RF: 3 metoprolol tartrate 25 mg tablet 25 mg PO BID 30 Days Qty: 60 RF: 11 levothyroxine 125 mcg tablet 125 mcg PO QAM Qty: 90 RF: 1 amitriptyline 25 mg tablet 25 mg PO HS Qty: 90 RF: 3 atorvastatin 40 mg tablet 40 mg PO QAM 30 Days Qty: 90 RF: 3 (DME) Wheelchair (Manual) Device See Rx Instructions .MEDSUPPLY Qty: 1 RF: 0 oxycodone-acetaminophen [Percocet] 5-325 mg tablet 1 tab PO Q6H PRN (Reason: pain) Qty: 30 RF: 0 topiramate 100 mg tablet 100 mg PO BID RF: 0 alprazolam [Xanax] 0.5 mg Tablet 0.5 mg PO Q12 PRN (Reason: anxiety) Qty: 20 RF: 0 Spiriva Respimat 2.5 mcg/actuation mist 1 puff INHALATION DAILY RF: 0 buspirone 15 mg tablet 15 mg PO BID RF: 0 albuterol sulfate [Ventolin HFA] 90 mcg/actuation HFA aerosol inhaler 1 puff INHALATION Q6 PRN (Reason: Shortness Of Breath) RF: 0 Discharge Orders: Discharge Order (Routine); Ordered 01/10/22 Ordered By: Rosie Floers Admission Data Admit Date/Time: 01/05/22 21:33 Attending Provider: Dioni Ortiz Admit Provider: Mary Prieto Primary Care Provider: Ted Singh Other Providers: Armaan Campbell ; [facility],Home Healthcare ; [facility],Health Other Interventions: Discharge Summary Assessment (RN) Last Done: 01/10/22 14:04 Supervising Physician Co-Signing Physician Notes I supervised Sandra CHANG on the care of this patient. I interviewed and examined the patient independently of her. The plan is as written in her note except for any following changes/exceptions: None Patient will be discharged on tapering steroids for acute exacerbation on idiopathic pulmonary fibrosis Coding Level of Care Code D/C DAY MANAGEMENT >30 MINS Diagnoses SOB (shortness of breath) R06.02 Acute exacerbation of idiopathic pulmonary fibrosis J84.112 Hypoxia R09.02 Cerebrovascular accident (CVA) of left thalamus I63.9 Bipolar disorder F31.9 Diabetes mellitus, type 2 E11.9 Hypothyroidism E03.9 Pneumonitis J18.9
== END 2022-01-10 16:23 | DRG 196 ==
LOC: ED 15:47 → 3W 21:33 → SUATTDRO 21:33 → 3W 22:22
DX: J45.909 Unspecified asthma, uncomplicated; F31.9 Bipolar disorder, unspecified; K58.9 Irritable bowel syndrome, unspecified; Z88.2 Allergy status to sulfonamides; Z96.651 Presence of right artificial knee joint; Z91.040 Latex allergy status; E03.9 Hypothyroidism, unspecified; K21.9 Gastro-esophageal reflux disease without esophagitis; J96.21 Acute and chronic respiratory failure with hypoxia; J84.112 Idiopathic pulmonary fibrosis; Z88.5 Allergy status to narcotic agent; Z88.0 Allergy status to penicillin; E11.9 Type 2 diabetes mellitus without complications; Z86.73 Personal history of transient ischemic attack (TIA), and cerebral infarction without residual deficits; I47.1 Supraventricular tachycardia; Z86.16 Personal history of COVID-19; Z96.89 Presence of other specified functional implants; J14 Pneumonia due to Hemophilus influenzae

== ENCOUNTER 2022-03-27 08:37 | Observation (INO) ==
--- NOTE | 2022-03-22 09:16 | Anesthesiology Consultation ---
Date of Service March 22, 2022 Assessment & Plan (1) Encounter for pre-operative examination: -COVID screening: Per assessment on 02/16: No known COVID-19 positive contacts or current COVID-19 related symptoms. Travel screen negative. Patient vaccinated. Surgeon arranging preop COVID testing (scheduled 03/23; [place]). Awaiting results. -Pulmonary office visit (01/25/22): "Her CT chest findings are consistent with probable UIP. Given her demographics, lack of serological positivity and imaging findings, I suspect that she likely has IPF. I discussed at length with the patient's daughter and the patient regarding treatment options, but stepwise decline of her lung function and goals of care. She is understanding that she has aprogressive disease that is irreversible. There are antifibrotic medica tions. I would favor Esbriet in her case given her history of embolic stroke. Patient and [id number] would like to think over the options especially given the patient's behavior health issues and trouble with keeping track of her medications. In the meantime, I will refer the patient to [facility] for review in their interstitial lung disease clinic. Her PFTs do suggest a significant decline in lung function but she had an exacerbation this past month. A pack and a patient information was given to the [id number] on the medication as written. Information was also given on pulmonary hypertension and ILD..Chronic hypoxemic respiratory failure: Multifactorial IPF and pulmonary hypertension. Continue supplemental oxygen at all times as this is a medical necessity to maintain saturations above 89% at all times. Walk test in the office demonstrated the patient needs 2 L of oxygen at rest and 5 L with exertion. Chronic dyspnea: Multifactorial.Discussed things such as hospice when the patient is ready. Home health nursing available at the patient's apartment. She is status post discharge from the hospital and patient rehab stay.. 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 Recent echo reviewed with increasing estimated pulmonary artery systolic pressures of 40 to 50 mmHg. We will repeat an echo in 3 months. She may be a candidate for inhaled treprostinil in the future if pulmonary hypertension is confirmed on right heart catheterization. We will discuss need for right heart catheterization based on the next echo. I suspect much of her pulmonary retention is hypoxemia mediated as she was not increasing her flow rate of oxygen with exertion. Hopefully her pressures will increase with better control of her hypoxemia. We will also send the patient for polysomnography given her fatigue and sleepiness. Patient also snores loudly. STOP-BANG score 4. [place] sleepiness score 15." -Pulmonary note (02/16/22): "She's anintermediate to high risk for perioperative complications given her severe IPF and significant o2 requirements. Would minimize time under anesthesia and use lung protective ventilation (6ml/kg PBW) if general anesthesia is determined necessary and safe."Demian at surgeon's office made aware of cardio/pulm perioperative risk assessment* -Cardiology office visit (02/07/22): "Patient is now on O2 via NC at 2 to 5 L/min. When she arrived to the office today she was markedly hypoxic with an O2 saturation in the mid 80s. Her portable oxygen tank ran out of oxygen when she was driving here, when she attached her tubing and turned on her second portable O2 tank -- it was empty. We subsequently placed her on supplemental oxygen at 2 liters/minute and her oxygen saturation came up to 88%, I then turned it up to 3 L/min and O2 sat came up to 98%. We were then able to decrease it to 2 L/min and her oxygen saturation stayed in the mid 90s. She contacted her O2 supplier and they delivered portable tanks to our office. She was subsequently able to go home with those portable oxygen tanks. Patient has exertional dyspnea, feels fatigued/tired all the time -- which are likely secondary to heridiopathic pulmonary fibrosis.The patient does appear stable from a cardiac standpoint -- she has not experienced any angina pectoris or anginal equivalent symptoms, overt evidence of heart failure, nor has she had any symptoms suggestive of a sustained dysrhythmia. Patient has not had any further symptoms suggestive of stroke or mini stroke. She does not experience claudication with her activities, but is very limited in her activity due to knee pain at this time. As mentioned, the patient would like to proceed with repeat right knee surgery. Based off of her normal LV systolic function and the fact that she tolerated a Right TKA without cardiac or anesthesia related complications on 06/10/2021 -- Patient is alow to intermediate cardiac riskfor her upcoming knee surgery. Patient was advised to take her in usual dose of Lopressor 25 mg on the morning of surgery with sips of water. She may hold Eliquis x 3 days leading up to this procedure.There is no need for further ischemic workup at this time. Spoke with Alfredo Lyons, PAC 02/16/22 to discuss if bridging/ASA recommended while patient off Eliquis- He reviewed patient's chart and feel that from a cardiac standpoint,okay to stop Eliquis 3 days prior to surgery without bridging- pt was made aware need to stop Eliquis 3 days prior to surgery. -RUE limb restriction: Per pt, d/t CVA complications -Post-op CVA: Patient had Right TKA (06/10/21): SAB at L4-5 (x1 attempt) + PNB at [facility]. Had ischemic left thalamic stroke POD#1.Case has been rescheduled so it is now > 9 months from DOS per pt request. Case was reviewed with Dr. Lucia- nothing further needed preoperatively from his perspective. Chart Review Chart Review: Acceptable Risk for Surgery (pending evaluation AM DOS) and Patient NOT seen in Pre Admission Testing History Surgery Operation Date: 03/27/22 12:30 Proposed Procedures p Right Total Knee Revision - Jason Gooden, DO Height/Weight Height: 5 ft 3 in Weight: 84.368 kg Allergies Allergy/AdvReac Type Severity Reaction Status Date / Time latex Allergy Intermediate Rash, hand Verified 03/22/22 07:45 swelling Sulfa (Sulfonamide Allergy Intermediate Rash Verified 03/22/22 07:45 Antibiotics) Penicillins Allergy Unknown Unknown Verified 03/22/22 07:45 reaction (as teenager) morphine AdvReac Intermediate Anxiety Verified 03/22/22 07:45 Medications Home Medications Medication Instructions Recorded Confirmed Last Taken topiramate 100 mg tablet (Topamax) 100 mg PO QPM 07/13/19 03/22/22 01/05/22 AM blood sugar diagnostic (OneTouch #100 ea 05/18/21 03/22/22 Unknown Ultra Test) blood-glucose meter (OneTouch #1 ea 05/18/21 03/22/22 Unknown Ultra2 Meter) lancets 33 gauge (OneTouch Delica #100 ea 05/18/21 03/22/22 Unknown Lancets) Wheelchair (Manual) #1 ea 06/28/21 03/22/22 Unknown pantoprazole 40 mg tablet,delayed 40 mg PO QAM #90 tab 08/12/21 03/22/22 03/19/22 08:00 release apixaban 5 mg tablet (Eliquis) 5 mg PO BID #180 tab 09/12/21 03/22/22 03/19/22 21:00 levothyroxine 125 mcg tablet 125 mcg PO QAM #90 tab 09/13/21 03/22/22 03/19/22 08:00 metoprolol tartrate 25 mg tablet 25 mg PO BID 30 Days #60 tab 09/13/21 03/22/22 03/19/22 22:00 amitriptyline 25 mg tablet 25 mg PO HS #90 tab 09/26/21 03/22/22 03/19/22 22:00 atorvastatin 40 mg tablet 40 mg PO QAM 30 Days #90 tab 01/03/22 03/22/22 03/19/22 22:00 Portable Oxygen #1 ea 01/25/22 03/22/22 Unknown guaifenesin 100 mg/5 mL oral liquid 200 mg PO Q4H PRN 02/14/22 03/22/22 03/19/22 16:00 Portable Oxygen #1 ea 02/17/22 03/22/22 Unknown Past Medical History Medical History Anxiety and depression Arrhythmia ? hx of a. fib- on Eliquis per cardiology Bipolar disorder Cerebrovascular accident (CVA) of left thalamus 06/11/2021 (post-op Right TKA) > POD#1 ischemic left thalamic stroke CVA > 9 months from DOS Chronic hypoxemic respiratory failure GERD (gastroesophageal reflux disease) History of blood transfusion Post-op 2017 History of COVID-19 12/2020 > fully recovered Hyperglycemia Hx mild hyperglycemia under surveillance by PCP. Most recent A1C 5.6% (06/12/21) Hypothyroidism IBS (irritable bowel syndrome) Intermittent flares - takes Amitriptyline and Protonix for GI pain control IPF (idiopathic pulmonary fibrosis) Left bundle branch block Follows with [facility] cardiology On home oxygen therapy 2-3L at rest/5L with activity Osteopenia Pulmonary hypertension Moderately elevated estimated RVSP (RVSP 40-50mmhg) per 01/19/22 echo Spinal stenosis Past Family History Family History Family/Other No problems noted. Mother Colon cancer Dementia Father , at age 79 from mesothelioma. Mesothelioma Sister No problems noted. Sister No problems noted. Son No problems noted. Daughter No problems noted. Other Family history of diabetes mellitus in father Denies family history of Ovarian cancer Prostate cancer Myocardial infarction Breast cancer Past Surgical History Surgical History History of anesthesia reaction "Slow to wake" x1 episode after 3 hour surgery in 2017- she states she became violent and upset, hallucinated while waking up. Began to calm down once she heard her daughter's voice. History of arthroscopy R/L knee History of cholecystectomy History of colonoscopy History of hernia surgery History of hysterectomy History of loop recorder History of surgery Right Quadriceps Repair (06/14/21): LMA#4 at [facility]. No issues noted per post-op anesthesia progress note. History of total knee replacement Right TKA (06/10/21): SAB at L4-5 (x1 attempt) + PNB at [facility] Status post gastric banding surgery + removal Social History Smoking Status: Former smoker tobacco type: cigarettes Do You Dip or Chew Tobacco: No Smoking End Date: Hx Alcohol Use: No Alcohol type: wine alcohol intake frequency: holidays/special occasions only Hx Substance Use: No substance use type: does not use Testing Electrocardiogram Date: 02/16/22 NSR at 70bpm. LAD. Anterior infarct. Echo done 01/19/22* Chest X-Ray Date: 01/05/22 FINDINGS: No pneumothorax or pleural effusion is noted. Cardiomediastinal silhouette is stable. Interstitial thickening is similar to prior exams. This favors interstitial lung disease. No superimposed consolidation. No evidence for pulmonary edema. IMPRESSION: Stable interstitial thickening suggestive of interstitial lung disease. No superimposed consolidation identified. Echocardiogram Date: 01/19/22 EF 60 to 65%. Abnormal paradoxical septal motion consistent with LBBB. There is no thrombus. Grade 1 diastolic dysfunction. Mild concentric LVH. Mild AV sclerosis. Mild aortic stenosis (CHRIS 1.5 cm). Mild TR. Moderately elevated RVSP (40-50 mmHg). Compared to echo 06/12/2021, there has been no significant interval change per report. Stress Test Date: 12/19/19 Type: nuclear No scintigraphic evidence of a prior myocardial infarction or stress-induced myocardial ischemia. No Lexiscan induced chest pain. No Lexiscan induced EKG changes. Normal left ventricular systolic function without wall motion abnormality. Left ventricular ejection fraction is 45-50%. Pulmonary Function Test Date: 01/25/22 Loop recorder report (12/29/21) PACs on presenting rhythm. Normal sinus rhythm. Mode battery parameters. Histogram shows heart rates predominantly 60-100 bpm. Also events recorded due to PACs/SVT/PVCs/VT. Chest CTA (01/05/22) No CTA evidence for pulmonary embolus. No acute chest disease. However, there is extensive idiopathic interstitial lung disease with honeycombing present. Additional nonacute findings are delineated above.
[~2022-03-27 08:37] MED LIST: ACETAMINOPHEN 500 MG TAB PO SCH; BUPIVACAINE 0.5 % 5 MG/1 ML PF 10ML VIAL ONE; FAMOTIDINE 20 MG TAB PO SCH; GABAPENTIN 300 MG CAP PO SCH; Ketorolac (*for OR use only*) 30 MG, dexAMETHasone 4 MG, KETAMINE HCL (**OR use only) 1... INFIL SCH; LR 500ML BOLUS, THEN 15ML/HR IV SCH; LR 60ML/HR IV SCH; ROPIVACAINE 0.5% 5 MG/ML 30 ML VIAL ONE; TRANEXAMIC ACID 1,000 MG **IV Intra-op IV SCH; ceFAZolin 2000MG 2,000 MG/15 ML SYR IV SCH; dexAMETHasone 4 MG TAB PO SCH
[2022-03-27] MEDS ORDERED: MIDAZOLAM HCL 1 MG/ML 2ML VIAL ONE (09:12)
[2022-03-27] MEDS ORDERED: ePHEDrine sulfate 50 MG/ML AMP IV PRN (10:01)
[2022-03-27] MEDS ORDERED: ONDANSETRON INJ 2 MG/ML 2 ML VIAL IV PRN ×2 (10:01→15:01)
[2022-03-27] MEDS ORDERED: ATROPINE SULFATE 0.1 MG/ML 10ML SYR IV PRN (10:01)
[2022-03-27] MEDS ORDERED: HYDROmorphone INJ 1 MG/ML SYRINGE IV PRN (10:01)
--- NOTE | 2022-03-27 10:06 | History & Physical Bridge Note ---
Date of Service March 27, 2022 History & Physical Bridge Note I have examined the patient, reviewed the History & Physical and in the interval since the performance of the History & Physical I have noted the following changes of clinical significance: no changes noted
[2022-03-27] MEDS: TRANEXAMIC ACID 1,000 MG x 1 **For Topical Use TOP SCH ×2 (10:19→15:23)
[2022-03-27] MEDS ORDERED: ORTHO JOINT ANESTHETIC ONE (10:28)
[2022-03-27] MEDS ORDERED: KETAMINE 50 MG/5 ML SYRINGE ONE (10:58)
[2022-03-27] MEDS ORDERED: PROPOFOL IV EMULSION 10 MG/ML 20 ML VIAL IV ONE ×3 (11:01→13:04)
[2022-03-27] MEDS ORDERED: ONDANSETRON INJ 2 MG/ML 2 ML VIAL ONE (11:01)
[2022-03-27] MEDS ORDERED: TRANEXAMIC ACID / 0.7% NACL 1,000 MG/100 ML BAG IV STA ×2 (11:02→11:05)
[2022-03-27] MEDS ORDERED: GLYCOPYRROLATE 0.2 MG/ML VIAL ONE (11:31)
[2022-03-27] MEDS ORDERED: PHENYLEPHRINE HCL 10 MG/ML VIAL ONE (12:27)
--- NOTE | 2022-03-27 13:24 | Operative Report ---
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 Jason Gooden DO Surgeon Jason Gooden DO [employer] Jason Cade PAC Estimated Blood Loss 10 Findings Consistent with Post-Op Diagnosis Specimens None Complications none Disposition Disposition: Recovery Room Indications Marichuy is a pleasant 71-year-old female who underwent a primary right knee replacement 10 months ago. Unfortunately after the procedure she suffered a stroke. She came back to the hospital and while at the hospital she got up out of her bed and fell. She had a significant injury to her right knee. Patella dislocated off that side. She went back to the operating room and knee was washed out and the extensor mechanism was repaired. The MCL was grossly loose. Some sutures were placed. She was placed in a knee immobilizer. Unfortunately she did not do well postoperatively. She continued to have severe valgus instability of her right knee. After failing 10 months of conservative treatment, she elected to proceed with a conversion to a hinged knee prosthesis. Description of Procedure Implants used: I converted the knee to a Thaddeus RHK hinged knee prosthesis with a size D femoral component with a 15 mm x 145 mm stem, a size 3 tibia with a 10 mm full augment abigail 13 mm x 145 mm tibial stem, and a 17 mm polyethylene insert. All components were cemented with Biomet cement. On March 27 Marichuy lives at [facility] for the above procedure. She was seen in the preoperative holding area and the operative extremity was identified and signed. She was given a preoperative antibiotic and a spinal anesthetic. She was taken back to the operating room and laid on the table in supine position. She was put under basic sedation. The right knee was then prepped and draped in sterile fashion. A timeout was done. The patient and the operative extremity was properly identified. The previous midline incision was opened back up. Dissection was taken down to the extensor mechanism. A medial parapatellar approach was used. There was no signs of infection. A little bit of scar tissue was removed but not much. The patella was well seated. The knee was then flexed. The polyethylene insert was then removed. An oscillating saw and osteotomes were used to remove the femoral component. The femoral component was well seated. An oscillating saw and osteotomes were used to remove the tibial component as well. The tibial component was also well seated. Once the previous implants were removed, all additional pieces cement were then removed. The entire knee was then irrigated. Attention was then turned to the tibia. Sequential reaming of the tibia up to a size 13 reamer was done. The tibia measured to be a size 3. No offset was necessary. The tibial canal was then drilled and punched. A trials tibial stem was placed with a 10 mm augment. Attention was then turned to the distal femur. Sequential reaming of the distal femur was done up to a size 15. A 4-in-1 cutting block was placed and any additional cuts were freshened up. The box was then resected for the hinged portion of the component. No augments were necessary on the tibial side. Several polyethylene inserts were trialed and a size 17 seem to be the best fit. The 17 polywas then screwed in. The knee was brought through a full range of motion with the trials and felt to be very stable. I was happy with the overall alignment. All the trials were then removed. Final implants were then cemented with Biomet cement. The final polyethylene insert was snapped into place and the hinge was tightened. After the cement had fully dried the knee was once again brought through full range of motion and felt to be stable. Surrounding soft tissues were then injected with 60 cc of an orthopedic pain control cocktail. The tourniquet was deflated and hemostasis was obtained. The extensor mechanism was closed with #1 Vicryl suture. Skin was closed with 2-0 Vicryl, a running strata fix, and modesta. She was then placed in a soft compressive dressing. She was then transferred to a hospital bed and taken to the postanesthesia care unit in stable condition. She tolerated the procedure well. Jason Cade PA-C, was present for the entire procedure. He was critical for patient positioning, prepping, draping, retraction exposure, wound closure and application of sterile dressing. I attest to the content of the Intraoperative Record and any orders documented therein. Any exceptions are noted below.
--- NOTE | 2022-03-27 14:18 | XRay Report ---
XR knee RT 1 or 2V routine CLINICAL HISTORY: Postoperative evaluation. COMPARISON: Right knee radiographs February 06, 2022. FINDINGS: Alignment of the constrained revision longstem right knee arthroplasty is anatomic. No periprosthetic fracture or unexpected radiopaque foreign body. There are skin modesta. IMPRESSION: Expected findings following revision right knee arthroplasty. ACT 112: Negative or not required by law. Electronically signed by: Parminder Ayala M.D. 03/27/2022 2:16 PM
--- NOTE | 2022-03-27 15:00 | Anesthesiology Progress Note ---
Date of Service March 27, 2022 Anesthesia Post Procedure Vital Signs Vital Signs: Temp Pulse Pulse Resp BP Pulse Ox 03/27/22 14:45 66 18 109/69 97 03/27/22 14:30 68 18 110/63 97 03/27/22 14:20 36.5 C 69 18 96/60 L 96 03/27/22 14:10 70 18 102/63 96 03/27/22 14:00 70 18 92/55 L 95 03/27/22 13:50 72 20 85/56 L 96 03/27/22 13:44 36.4 C L 75 20 81/51 L 95 03/27/22 09:11 36.9 C 81 20 126/73 99 Transfer of Care Handoff Completed per policy Notes Mental Status: alert / awake / arousable Patient Amnestic to Procedure: Yes Nausea / Vomiting: adequately controlled Pain: adequately controlled Airway Patency, RR, SpO2: stable & adequate BP & HR: stable & adequate Hydration State: stable & adequate Neuraxial Anesthesia: was administered and sensory block is resolving Anesthetic Complications: no major complications apparent
[2022-03-27] MEDS ORDERED: bisacodyL 10 MG SUPP PR PRN (15:01)
[2022-03-27] MEDS ORDERED: METOCLOPRAMIDE HCL INJ 5 MG/ML 2 ML VIAL IV PRN (15:01)
[2022-03-27] MEDS ORDERED: NALOXONE HCL 0.4 MG/1 ML VIAL/CARP IV PRN (15:01)
[2022-03-27] MEDS ORDERED: NON-FORMULARY MEDICATION (Wheelchair (Manual) device) XX SCH (15:01)
[2022-03-27] MEDS ORDERED: OXYGEN SCH ×2 (15:01)
[2022-03-27] MEDS ORDERED: HYDROmorphone INJ 0.5 MG/0.5 ML SYR IV PRN (15:01)
[2022-03-27] MEDS ORDERED: MAGNESIUM HYDROXIDE SUSP 30 ML UDC PO PRN (15:01)
[2022-03-27] MEDS ORDERED: PHARMACY GLYCEMIC MGMT CONSULT PRN (15:01)
[2022-03-27] MEDS ORDERED: guaiFENesin SUGAR FREE 100 MG/5 ML UDC PO PRN (15:01)
[2022-03-27] MEDS: KETOROLAC TROMETHAMINE 15 MG/ML VIAL IV SCH ×2 (16:09→20:59)
[2022-03-27] MEDS: ACETAMINOPHEN 500 MG TAB PO SCH ×2 (16:09→20:58)
[2022-03-27] MEDS: SODIUM CHLORIDE 0.9% 1000ML 1,000 ML IV SCH (16:09)
[2022-03-27] MEDS: oxyCODONE HCL IR 5 MG TAB (IMMEDIATE RELEASE) PO PRN ×2 (17:32→20:57)
[2022-03-27] MEDS: ceFAZolin 2000MG 2,000 MG/15 ML SYR IV SCH (19:47)
[2022-03-27] MEDS: DOCUSATE SODIUM 100 MG CAP PO SCH (20:58)
[2022-03-27] MEDS: SENNA 8.6 MG TAB PO SCH (20:58)
[2022-03-27] MEDS: METOPROLOL TARTRATE 25 MG TAB PO SCH (20:58)
[2022-03-27] MEDS: TOPIRAMATE 100 MG TAB PO SCH (20:58)
[2022-03-27] MEDS: AMITRIPTYLINE HCL 25 MG TAB PO SCH (20:59)
[2022-03-28] MEDS: SODIUM CHLORIDE 0.9% 1000ML 1,000 ML IV SCH (01:56)
[2022-03-28] MEDS: oxyCODONE HCL IR 5 MG TAB (IMMEDIATE RELEASE) PO PRN ×3 (02:59→19:04)
[2022-03-28] MEDS: ceFAZolin 2000MG 2,000 MG/15 ML SYR IV SCH (03:11)
[2022-03-28] MEDS: KETOROLAC TROMETHAMINE 15 MG/ML VIAL IV SCH ×4 (03:12→21:09)
[2022-03-28] MEDS: ACETAMINOPHEN 500 MG TAB PO SCH ×3 (05:04→21:10)
--- NOTE | 2022-03-28 07:00 | Orthopedic Progress Note ---
Date of Service March 28, 2022 Assessment & Plan (1) Status post revision of total replacement of right knee: Overall she is doing fairly well. She is not having too much pain in the right knee. She will be seen by physical therapy today for ambulation and range of motion exercises. She is on Eliquis for DVT prophylaxis. We will keep her in the hospital today for pain control. She plans discharged to [facility] tomorrow if the beds available. Reagan Benedict was seen and examined at bedside this morning. Overall she is doing fairly well. She is not in too much pain in the right knee. She has been up and ambulating to bedside commode. She has no complaints. Review of Systems All systems reviewed & are unremarkable except as noted in HPI & below. Physical Exam On physical examination of the right knee, the dressing is clean and dry. Her leg is out full extension. She has active dorsiflexion plantarflexion of the right ankle.. Results & Data Results & Data Laboratory Results . Diagnostic Findings Postoperative x-rays of the right knee show the prosthesis to be in anatomic alignment without any evidence of fracture, desiccation, or loosening. PG Care Time/CCT Total # of Minutes Spent Total Time Spent with Patient: Total time spent is greater than 50% in coordination of care (as documented) at patient's floor/unit and/or counseling patient: Coding Level of Care Code 87085 Post Operative Follow-Up Diagnoses Status post revision of total replacement of right knee Z96.651
[2022-03-28] MEDS: ATORVASTATIN 40 MG TAB PO SCH (08:10)
[2022-03-28] MEDS: DOCUSATE SODIUM 100 MG CAP PO SCH ×2 (08:10→21:08)
[2022-03-28] MEDS: MULTIVITAMIN TAB PO SCH (08:10)
[2022-03-28] MEDS: APIXABAN 5 MG TABLET PO SCH ×3 (08:10→21:08)
[2022-03-28] MEDS: PANTOprazole 40 MG TAB PO SCH (08:10)
[2022-03-28] MEDS ORDERED: LEVOTHYROXINE SODIUM 125 MCG TABLET PO SCH (09:00)
[2022-03-28] MEDS: METOPROLOL TARTRATE 25 MG TAB PO SCH ×2 (09:16→21:07)
[2022-03-28 09:37] LABS: Hematocrit (blood only) 33.6 % (37-47); Hemoglobin 10.9 g/dL (12.0-16.0); Mean Corpuscular Hemoglobin 29.3 pg (25-34); Mean Corpuscular Hgb Conc 32.4 g/dL (32-36); Mean Corpuscular Volume 90.3 fL (80-100); Mean Platelet Volume 10.7 fL (7.4-10.4); Platelet Count 228 K/uL (130-400); RDW Coefficient of Variation 15.3 % (11.5-14.5); RDW Standard Deviation 50.8 fL (36.4-46.3); Red Blood Count 3.72 M/uL (4.2-5.4); White Blood Count 13.24 K/uL (4.8-10.8)
[2022-03-28 10:00] LABS: Calcium 8.9 mg/dl (8.5-10.1); Creatinine Clr Calc Pharmacy 52.1 ml/min; Est GFR (African American) 65.2 ml/min; Est GFR (Non-African American) 56.2 ml/min; Potassium 3.8 mmol/L (3.5-5.1)
[2022-03-28] MEDS: TOPIRAMATE 100 MG TAB PO SCH (21:08)
[2022-03-28] MEDS: AMITRIPTYLINE HCL 25 MG TAB PO SCH (21:08)
[2022-03-28] MEDS: SENNA 8.6 MG TAB PO SCH (21:08)
[2022-03-29] MEDS: KETOROLAC TROMETHAMINE 15 MG/ML VIAL IV SCH ×2 (03:41→08:45)
[2022-03-29] MEDS: ACETAMINOPHEN 500 MG TAB PO SCH ×2 (05:35→13:23)
[2022-03-29] MEDS ORDERED: LEVOTHYROXINE SODIUM 125 MCG TABLET PO SCH (06:00)
--- NOTE | 2022-03-29 06:54 | Orthopedic Progress Note ---
Date of Service March 29, 2022 Assessment & Plan (1) Status post revision of total replacement of right knee: Overall she is doing very well. She is not having much pain in the right knee. She will be seen by physical therapy today for ambulation and range of motion exercises. She was on Eliquis for DVT prophylaxis. She can be [facility] to [facility] later today. She will follow-up with orthopedics in 2 weeks. Reagan Benedict was seen and examined at bedside this morning. Overall she doing fairly well. She is having much pain in the right knee. She was able to participate well yesterday with physical therapy. She has no complaints.. Review of Systems All systems reviewed & are unremarkable except as noted in HPI & below. Physical Exam On physical examination the right knee, the dressing is clean and dry. Her leg is out in full extension. She has active dorsiflexion plantarflexion of the right ankle.. Results & Data Results & Data Laboratory Results . Diagnostic Findings . PG Care Time/CCT Total # of Minutes Spent Total Time Spent with Patient: Total time spent is greater than 50% in coordination of care (as documented) at patient's floor/unit and/or counseling patient: Coding Level of Care Code 82259 Post Operative Follow-Up Diagnoses Status post revision of total replacement of right knee Z96.651
--- NOTE | 2022-03-29 06:55 | Discharge Summary ---
Date of Service March 29, 2022 Principal Diagnosis Same as "Discharge Diagnosis" noted below under Discharge Instructions. Discharge Exam On physical examination the right knee, the dressing is clean and dry. Her leg is out in full extension. She has active dorsiflexion plantarflexion of the right ankle.. Discharge Data Procedures Performed Operation Date: 03/27/22 10:40 Actual Procedures p Right Total Knee Revision(Left) - Jason Gooden DO Ordered Studies 03/27/22 05:00 US - OR guided needle placemen Routine Hospital Course (1) Status post revision of total replacement of right knee: On March 27, 2022 Marichuy arrived at [facility] and underwent a right revision knee replacement without complication. She had a spinal anesthetic. Postoperatively she was started back on Eliquis for DVT prophylaxis and transferred to the general orthopedic floors. Her hospital course was uneventful. On postop day #1, her vital signs were stable and her pain was well controlled. She was able to participate well with physical therapy doing ambulation and range of motion exercises. On postop day #2 she continued to do well. She was seen again by physical therapy. She was then [facility] to [facility]. She will follow-up with orthopedics in 2 weeks. PG Care Time/CCT Total # of Minutes Spent Total Time Spent with Patient: Total time spent is greater than 50% in coordination of care (as documented) at patient's floor/unit and/or counseling patient: Discharge Plan Discharge Items Patient Disposition: Transfer Inpatient Rehab Fac Reason For Visit: Painful Right Total Knee Arthroplasty Discharge Diagnosis: Revision right knee replacement Activity: Per Instructions section Non-emergency contact: Surgeon Call non-emergency contact if: your wound has increased redness and your wound has increased drainage Follow-up/Referrals: Ted Singh MD [Primary Care Provider] - Diet: Regular Addtl Attending Provider Instructions: Activity and Therapy Recommendations: * If you are using [facility] then therapy will be provided at your home until they feel you have accomplished all of your goals. * If you are using [facility] then Physical Therapy will be provided until they feel you are ready to start Outpatient Physical Therapy. * If you are not using home therapy then Outpatient Physical Therapy should start about 3-5 days from your day of surgery. Therapy will last about 6-10 weeks * It is important not to put a pillow under your knee when you are relaxing or sleeping. It is just as important to make sure you are getting your knee perfectly straight as it is to regain your knee bend. * You were shown a series of exercises in the hospital. Do these exercises three times each day including the exercises you were shown in physical therapy. * Get up and walk several times each day. For the first four weeks, try not to stand or walk for more than one hour at a time. If you do stand or walk for more than one hour, you will not hurt anything, but your leg will likely swell. * As you feel comfortable, you may change from the walker or crutches to a cane and then to independent walking. Medications: * Narcotic You will likely be sent home from the hospital with a prescription for the narcotic pain medication that worked best throughout your stay. * Aspirin Most patients will be required to take Aspirin 81mg twice a day for 6 weeks after surgery. This is obtained [id number] and a prescription is not necessary. * Other medications may be prescribed for specific circumstances. If you have any questions, please call the office at . * Resume previous home medications unless otherwise instructed TEDs/Elastic Stockings: The white elastic stockings help limit swelling and prevent blood clots from forming in your legs.~ The more you wear them, the more they work. Wear them for six weeks. Dressing Care: The dressing can be changed after physical therapy on postop day #1. Daily dry dressing changes for a few days, especially if the incision is still draining some. If the incision is not draining then you may leave the modesta open to air. If there is a little bit of drainage or if the modesta are getting stuck on your clothing then cover the incision with a dry dressing. The modesta will be removed at your 2 week follow-up appointment. Showering: You may shower 5 days from the day of surgery as long as the incision is no longer draining. You may shower with the modesta exposed. Let soapy water run over the modesta and pat them dry. Do not scrub or soak the incision. Things To Watch For: * Drainage from the incision site that occurs more than one week after your surgery. * Increased redness at the incision site. * Fever above 102 degrees Fahrenheit. * Unusual chest pain or shortness of breath. * Call [facility] at with any of the above problems Follow-Up Visit: Follow-up with Dr. Gooden's PA (Jason Cade) 2-3 weeks after your day of surgery. He will remove your modesta and answer any questions. If you have any additional questions or concerns, Dr Gooden is usually in the office at the same time and will be available An appointment was probably scheduled when you signed-up for surgery in the office. If you have any questions call Office Instructions: More detailed instructions as well as Frequently Asked Questions were provided in a folder by our office when you signed-up for surgery. Please review these instructions when you get home. If you have any further questions or concerns, please feel free to call the office at [phone] Pending Studies at Discharge: No Stand-Alone Forms: My [facility] Skilled Items Patient informed of condition?: Yes DNR: No Discharge Level of Care: Acute rehab Communicable Disease: No Discharge Prognosis: Improving Lines: None Urinary Catheter: No Medications and DC Order Prescriptions: New oxycodone-acetaminophen 5-325 mg tablet 1 tab PO Q6H PRN (Reason: pain) Qty: 40 RF: 0 Continued (DME) OneTouch Ultra Test Strip See Rx Instructions .Route Qty: 100 RF: 3 (DME) blood-glucose meter [OneTouch Ultra2 Meter] Kit See Rx Instructions .Route Qty: 1 RF: 0 (DME) lancets [OneTouch Delica Lancets] 33 gauge misc See Rx Instructions .Route Qty: 100 RF: 3 pantoprazole 40 mg tablet,delayed release (DR/EC) 40 mg PO QAM Qty: 90 RF: 3 Eliquis 5 mg tablet 5 mg PO BID Qty: 180 RF: 3 metoprolol tartrate 25 mg tablet 25 mg PO BID 30 Days Qty: 60 RF: 11 levothyroxine 125 mcg tablet 125 mcg PO QAM Qty: 90 RF: 1 amitriptyline 25 mg tablet 25 mg PO HS Qty: 90 RF: 3 atorvastatin 40 mg tablet 40 mg PO QAM 30 Days Qty: 90 RF: 3 (DME) Portable Oxygen Misc See Rx Instructions .Route Qty: 1 RF: 0 (DME) Wheelchair (Manual) Device See Rx Instructions .MEDSUPPLY Qty: 1 RF: 0 (DME) Portable Oxygen Misc See Rx Instructions .Route Qty: 1 RF: 0 topiramate [Topamax] 100 mg tablet 100 mg PO QPM RF: 0 guaifenesin [Robitussin] 100 mg/5 mL Liquid 200 mg PO Q4H PRN (Reason: Cough) RF: 0 Discharge Orders: Discharge Order (Routine); Ordered 03/29/22 Ordered By: Jason Gooden Admission Data Admit Date/Time: 03/27/22 13:45 Attending Provider: Jason Gooden Admit Provider: Jason Gooden Primary Care Provider: Ted Singh Other Providers: [facility]
[2022-03-29] MEDS: oxyCODONE HCL IR 5 MG TAB (IMMEDIATE RELEASE) PO PRN ×2 (08:43→13:22)
[2022-03-29] MEDS: MULTIVITAMIN TAB PO SCH (08:44)
[2022-03-29] MEDS: DOCUSATE SODIUM 100 MG CAP PO SCH (08:44)
[2022-03-29] MEDS: APIXABAN 5 MG TABLET PO SCH (08:44)
[2022-03-29] MEDS: ATORVASTATIN 40 MG TAB PO SCH (08:44)
[2022-03-29] MEDS: PANTOprazole 40 MG TAB PO SCH (08:44)
[2022-03-29] MEDS: METOPROLOL TARTRATE 25 MG TAB PO SCH (08:45)
== END 2022-03-29 17:27 ==
LOC: ASU 08:37 → 3E 08:37

== ENCOUNTER 2022-06-20 13:34 | Inpatient (IN) ==
--- NOTE | 2022-06-20 14:31 | Emergency Department Note ---
History of Present Illness General Chief complaint: Shortness of Breath/Dyspnea Stated complaint: SOB Time Seen by Provider: 06/20/22 13:47 Source: patient Mode of arrival: ambulatory Limitations: no limitations History of Present Illness Provider complaint: shortness of breath This is a 72 yo female who presents complaining of increased SOB for 1 week. Patient with hx of idiopathic pulmonary fibrosis. She states she typically wears oxygen daily. She was previously wearing 2 lpm at rest and 5 with exertion, but noted the last 2 months she has been wearing 5 lpm all the time. She states she does see pulmonology but isn't currently using any MDI's or nebs. She states that this week she has felt sob even on 5 lpm. She has developed rhinorrhea, nasal congestion, increased cough but denies fevers/chills. She states her rhinorrhea has at times been green. No prior cardiac hx or CHF. No known sick contacts. She has previously been hospitalized for SOB. Patient seen in conjunction with family practice resident Dr. Mckeon. Pt seen during a time of high acuity and national emergency pandemic while wea ring PPE. Home Medications Medication Instructions Recorded Confirmed Type topiramate 100 mg tablet (Topamax) 100 mg PO QPM 07/13/19 06/21/22 History blood sugar diagnostic (OneTouch #100 ea 05/18/21 04/04/22 Rx Ultra Test strips) blood-glucose meter (OneTouch #1 ea 05/18/21 04/04/22 Rx Ultra2 Meter kit) lancets 33 gauge (OneTouch Delica #100 ea 05/18/21 04/04/22 Rx Lancets) Wheelchair (Manual) #1 ea 06/28/21 04/04/22 Rx pantoprazole 40 mg tablet,delayed 40 mg PO QAM #90 tabs 08/12/21 06/21/22 Rx release apixaban 5 mg tablet (Eliquis) 5 mg PO BID #180 tabs 09/12/21 06/21/22 Rx metoprolol tartrate 25 mg tablet 25 mg PO BID 30 days #60 tabs 09/13/21 06/21/22 Rx amitriptyline 25 mg tablet 25 mg PO HS #90 tabs 09/26/21 06/21/22 Rx atorvastatin 40 mg tablet 40 mg PO QAM 30 days #90 tabs 01/03/22 06/21/22 Rx Portable Oxygen #1 ea 01/25/22 04/04/22 Rx guaifenesin 100 mg/5 mL oral liquid 200 mg PO Q4H PRN Cough 02/14/22 06/21/22 History Portable Oxygen #1 ea 02/17/22 04/04/22 Rx oxycodone-acetaminophen 5 mg-325 1 tab PO Q6H PRN pain #40 tabs 03/29/22 06/21/22 Rx mg tablet levothyroxine 125 mcg tablet 125 mcg PO QAM #90 tabs 04/25/22 06/21/22 Rx tramadol 50 mg tablet 50 mg PO Q8H PRN pain #30 tabs 05/03/22 06/21/22 Rx buspirone 15 mg tablet 30 mg PO DAILY 06/21/22 06/21/22 History Allergies Allergy/AdvReac Type Severity Reaction Status Date / Time latex Allergy Intermediate Rash, hand Verified 03/27/22 09:06 swelling Sulfa (Sulfonamide Allergy Intermediate Rash Verified 03/27/22 09:06 Antibiotics) Penicillins Allergy Unknown Unknown Verified 03/27/22 09:06 reaction (as teenager) morphine AdvReac Intermediate Anxiety Verified 03/27/22 09:06 Past Med/Surg History Medical History (Updated 06/22/22 @ 14:04 by Digna Evans, DO) Anxiety and depression Arrhythmia ? hx of a. fib- on Eliquis per cardiology Bipolar disorder Cerebrovascular accident (CVA) of left thalamus 06/11/2021 (post-op Right TKA) > POD#1 ischemic left thalamic stroke CVA > 9 months from DOS Chronic hypoxemic respiratory failure GERD (gastroesophageal reflux disease) History of blood transfusion Post-op 2017 History of COVID-19 12/2020 > fully recovered Hyperglycemia Hx mild hyperglycemia under surveillance by PCP. Most recent A1C 5.6% (06/12/21) Hypothyroidism IBS (irritable bowel syndrome) Intermittent flares - takes Amitriptyline and Protonix for GI pain control IPF (idiopathic pulmonary fibrosis) Left bundle branch block Follows with [facility] cardiology On home oxygen therapy 2-3L at rest/5L with activity Osteopenia Pulmonary hypertension Moderately elevated estimated RVSP (RVSP 40-50mmhg) per 01/19/22 echo Spinal stenosis Surgical History History of anesthesia reaction "Slow to wake" x1 episode after 3 hour surgery in 2017- she states she became violent and upset, hallucinated while waking up. Began to calm down once she heard her daughter's voice. History of arthroscopy R/L knee History of cholecystectomy History of colonoscopy History of hernia surgery History of hysterectomy History of loop recorder History of surgery Right Quadriceps Repair (06/14/21): LMA#4 at [facility]. No issues noted per post-op anesthesia progress note. History of total knee replacement Right TKA (06/10/21): SAB at L4-5 (x1 attempt) + PNB at [facility] Status post gastric banding surgery + removal Family History Family/Other No problems noted. Mother Colon cancer Dementia Father , at age 79 from mesothelioma. Mesothelioma Sister No problems noted. Sister No problems noted. Son No problems noted. Daughter No problems noted. Other Family history of diabetes mellitus in father Denies family history of Ovarian cancer Prostate cancer Myocardial infarction Breast cancer Social History Smoking Status: Former smoker Tobacco Type: Cigarettes packs per day: 1; Years Smoked: 8; Number of Years Since Quit: 20; Second Hand Exposure: No; Hx Alcohol Use: No Hx Substance Use: No Preferred Language: Icelandic Communication Ability: Effective Visual Impairment: No Limitations Psychological Anthropologist Required: No Beliefs That Will Affect Care: None marital status: Single Current Living Situation: Alone Current Living Situation Comment: IN 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 current occupational status: retired Feels Safe at Home: Yes Childhood Exposure to Second-Hand Smoke: Yes Dental Care, Regularly: Yes Physical Activity Frequency: Daily Seatbelt Use: always Sunscreen Use: No Assistive Devices: Oxygen - Continuous and Walker Review of Systems A total of 10 systems reviewed and were otherwise negative All systems reviewed & are unremarkable except as noted in HPI & below Physical Exam Vital Signs Vital Signs - 24 hr 06/20/22 13:48 06/20/22 13:47 06/20/22 13:47 Temperature 37.2 C Temperature Source Oral Pulse Rate 91 H Pulse Rate [Radial] Pulse Rhythm Regular Pulse Rhythm [Radial] Pulse Strength Normal Pulse Strength [Radial] Respiratory Rate 20 Respiratory Effort / Characteristics Non-Labored Spontaneous Non-Labored Spontaneous Respiratory Depth Normal Normal Respiratory Pattern Blood Pressure 124/74 Blood Pressure [Right Arm] Blood Pressure Mean 90 Blood Pressure Mean [Right Arm] Blood Pressure Position Sitting Blood Pressure Position [Right Arm] Pulse Oximetry 98 Oxygen Delivery Method Nasal Cannula Nasal Cannula Oxygen Flow Rate 5 5 Sepsis Recent Fever Within 48 Hours No Sepsis New/Unexplained Change in Mental Status N/A Sepsis Action Taken by Nursing No Action Required 06/20/22 14:42 06/20/22 14:42 06/20/22 16:04 Temperature Temperature Source Pulse Rate 77 Pulse Rate [Radial] 76 75 Pulse Rhythm Regular Pulse Rhythm [Radial] Regular Pulse Strength Pulse Strength [Radial] Normal Respiratory Rate 18 18 18 Respiratory Effort / Characteristics Non-Labored Non-Labored Respiratory Depth Normal Normal Respiratory Pattern Regular Regular Blood Pressure Blood Pressure [Right Arm] 124/74 Blood Pressure Mean Blood Pressure Mean [Right Arm] 90 Blood Pressure Position Blood Pressure Position [Right Arm] Lying Pulse Oximetry 94 94 100 Oxygen Delivery Method Nasal Cannula Nasal Cannula Nasal Cannula Oxygen Flow Rate 5 5 5 Sepsis Recent Fever Within 48 Hours Sepsis New/Unexplained Change in Mental Status Sepsis Action Taken by Nursing GENERAL: alert, well appearing, well nourished, no distress, non-toxic EYE EXAM: normal conjunctiva, PERRL and EOM's grossly intact OROPHARYNX: no exudate, no erythema, lips, buccal mucosa, and tongue normal and mucous membranes are moist NECK: supple, no nuchal rigidity, no adenopathy, non-tender LUNGS: No tachypnea. Normal chest wall mechanics, no w/r/r, coarse BS of IPF noted b/l HEART: no murmurs, S1 normal and S2 normal ABDOMEN: abdomen soft, non-tender, normo-active bowel sounds, no masses, no rebound or guarding. BACK: Back is symmetrical on inspection and there is no deformity, no midline tenderness, no CVA tenderness. SKIN: no rashes and no bruising UPPER EXTREMITIES: upper extremities are grossly normal. FROM, nml pulses b/l. LOWER EXTREMITIES: No pitting edema. FROM, nml pulses b/l. NEURO EXAM: Normal sensorium, cranial nerves II-XII grossly intact, normal speech, no gross weakness of arms, no gross weakness of legs. Gross sensation intact. Course Administered Medications Amitriptyline HCl (Amitriptyline Hcl 25 Mg Tab) 25 mg PO HS IONA Stop: 07/20/22 20:59 Last Admin: 06/21/22 21:43 Dose: 25 mg Documented By: Admin: 06/20/22 20:36 Dose: 25 mg Documented By: RANI Apixaban (Apixaban 5 Mg Tablet) 5 mg PO BID IONA Stop: 07/20/22 20:59 Last Admin: 06/22/22 09:02 Dose: 5 mg Documented By: Admin: 06/21/22 21:42 Dose: 5 mg Documented By: Admin: 06/21/22 09:45 Dose: 5 mg Documented By: Admin: 06/20/22 20:36 Dose: 5 mg Documented By: RANI Atorvastatin Calcium (Atorvastatin 40 Mg Tab) 40 mg PO QAM IONA Stop: 07/21/22 08:59 Last Admin: 06/22/22 09:02 Dose: 40 mg Documented By: Admin: 06/21/22 09:44 Dose: 40 mg Documented By: ATIYA Buspirone HCl (Buspirone 15 Mg Tab) 30 mg PO DAILY IONA Stop: 07/21/22 10:34 Last Admin: 06/22/22 09:02 Dose: 30 mg Documented By: Admin: 06/21/22 11:40 Dose: 30 mg Documented By: ATIYA Dexamethasone 6 mg/ Syringe 1.5 mls @ 1 mls/min IV Q24H IONA Stop: 07/21/22 16:59 Last Admin: 06/21/22 17:52 Dose: 1 mls/min Documented By: ATIYA Levothyroxine Sodium (Levothyroxine Sodium 125 Mcg Tablet) 125 mcg PO DAILYBB IONA Stop: 07/21/22 06:29 Last Admin: 06/22/22 06:13 Dose: 125 mcg Documented By: Admin: 06/21/22 05:49 Dose: 125 mcg Documented By: RHINA Metoprolol Tartrate (Metoprolol Tartrate 25 Mg Tab) 25 mg PO BID IONA Stop: 07/20/22 20:59 Last Admin: 06/22/22 09:02 Dose: 25 mg Documented By: Admin: 06/21/22 21:42 Dose: 25 mg Documented By: Admin: 06/21/22 09:45 Dose: 25 mg Documented By: Admin: 06/20/22 20:36 Dose: 25 mg Documented By: RANI Pantoprazole Sodium (Pantoprazole 40 Mg Tab) 40 mg PO DAILYBB [facility] Stop: 07/22/22 06:29 Last Admin: 06/22/22 06:13 Dose: 40 mg Documented By: JOYCE Topiramate (Topiramate 100 Mg Tab) 100 mg PO QPM IONA Stop: 07/20/22 20:59 Last Admin: 06/21/22 21:43 Dose: 100 mg Documented By: Admin: 06/20/22 20:40 Dose: Not Given Documented By: RANI Discontinued Medications Albuterol (Albuterol Hfa 8 Gm Inhaler) 2 puffs INH NOW STA Stop: 06/20/22 16:14 Last Admin: 06/20/22 17:09 Dose: 2 puffs Documented By: EARLE Dexamethasone (Dexamethasone 4 Mg Tab) Confirm Administered Dose 8 mg PO .STK- MED ONE Stop: 06/20/22 17:15 Last Admin: 06/20/22 17:20 Dose: Not Given Documented By: EARLE Dexamethasone (Dexamethasone Sod Inj 4 Mg/Ml Vial) Confirm Administered Dose 8 mg .ROUTE .STK-MED ONE Stop: 06/20/22 17:17 Last Admin: 06/20/22 17:20 Dose: Not Given Documented By: EARLE Dexamethasone 8 mg/ Syringe 2 mls @ 1 mls/min IV ONE ONE Stop: 06/20/22 17:31 Last Admin: 06/20/22 17:20 Dose: 1 mls/min Documented By: EARLE Insulin Aspart (Insulin Aspart Per Unit) 0 units SC ACHS [facility] Stop: 07/20/22 20:59 Last Admin: 06/21/22 11:47 Dose: Not Given Documented By: ATIYA Co-signed By: KRISTI Admin: 06/21/22 08:54 Dose: Not Given Documented By: Admin: 06/20/22 20:43 Dose: Not Given Documented By: RANI Miscellaneous Information (Nursing To Pharmacy Communication) 1 each N/A TODAY [facility] Stop: 07/22/22 05:29 Last Admin: 06/22/22 05:56 Dose: Not Given Documented By: JOYCE Pantoprazole Sodium (Pantoprazole 40 Mg Tab) 40 mg PO QAM IONA Stop: 07/21/22 08:59 Last Admin: 06/21/22 05:49 Dose: 40 mg Documented By: RHINA Potassium Chloride (Potassium Chloride Pwd 20 Meq Pack) 40 meq PO ONE STA Stop: 06/20/22 15:09 Last Admin: 06/20/22 15:51 Dose: Not Given Documented By: EARLE Potassium Chloride (Potassium Chloride Crtab 20 Meq Tabcr) 40 meq PO NOW STA Stop: 06/20/22 15:48 Last Admin: 06/20/22 15:58 Dose: 40 meq Documented By: EARLE Sodium Chloride (Sodium Chloride 0.65% Na Soln 45 Ml ([place])) Confirm Administered Dose 225 sprays .ROUTE .STK-MED ONE Stop: 06/22/22 11:17 Last Admin: 06/22/22 12:41 Dose: 225 sprays Documented By: AGUILAR Medical Decision Making Differential Diagnosis Differential diagnoses includes but is not limited to pneumonia, bronchitis, CO PD/Asthma exacerbation, pneumothorax, pulmonary embolism, congestive heart failure, acute coronary syndrome Medical Records Attestation: I reviewed the patient's medical records. Home Medications Current Medication List: was personally reviewed by me Laboratory Data Attestation: I reviewed the patient's lab results. Result diagrams: 06/22/22 07:58 06/22/22 07:58 Lab Results 06/20/22 06/20/22 06/20/22 Range/Units 13:45 13:48 13:48 WBC 6.92 (4.8-10.8) K/ul RBC 4.55 (3.93-5.22) M/uL Hgb 12.9 (12.0-16.0) g/dl Hct 40.7 (34.1-44.9) % MCV 89.5 (80.0-100.0) fL MCH 28.4 (25.0-34.0) pg MCHC 31.7 L (32.0-36.0) g/dL RDW Std Deviation 43.4 (36.4-46.3) fL RDW Coeff of Ese 13.2 (11.5-14.5) % Plt Count 231 (130-400) K/uL MPV 10.9 (9.4-12.3) fL Immature Gran % (Auto) 0.4 % Neut % (Auto) 64.0 % Lymph % (Auto) 22.3 % [place] % (Auto) 8.4 % Eos % (Auto) 4.3 % Baso % (Auto) 0.6 % Neut # (Auto) 4.43 (1.4-6.5) K/uL Lymph # (Auto) 1.54 (1.2-3.4) K/uL [place] # (Auto) 0.58 (0.24-0.82) K/uL Eos # (Auto) 0.30 (0-0.50) K/uL Baso # (Auto) 0.04 (0-0.2) K/uL Immature Gran # (Auto) 0.03 H (0.00-0.02) K/uL Sodium (136-145) mmol/L Potassium (3.5-5.1) mmol/L Chloride (98-107) mmol/L Carbon Dioxide (21-32) mmol/L Anion Gap (3-11) BUN (6-23) mg/dl Creatinine (0.6-1.2) mg/dl Est Cr Clr Drug Dosing ml/min Est GFR ( Amer) ml/min Est GFR (Non-Af Amer) ml/min BUN/Creatinine Ratio (10-20) Glucose (70-99(Fasting)) mg/dl Calcium (8.5-10.1) mg/dl Total Bilirubin (0.2-1.0) mg/dl AST (13-39) U/L ALT (7-52) U/L Alkaline Phosphatase (34-104) U/L Troponin I High Sens (0-14) pg/ml Total Protein (6.0-8.3) gm/dl Albumin (3.4-5.0) gm/dl Globulin (2.5-4.0) gm/dl Albumin/Globulin Ratio (0.9-2) Procalcitonin < 0.05 (0-0.5) ng/ml Adenovirus (PCR) Not Detected (NotDetected) B. pertussis DNA (PCR) Not Detected (NotDetected) B.parapertussis DNA PCR Not Detected (NotDetected) C. pneumoniae DNA (PCR) Not Detected (NotDetected) Coronavirus OC43 (PCR) Not Detected (NotDetected) Coronavirus HKU1 (PCR) Not Detected (NotDetected) Coronavirus 229E (PCR) Not Detected (NotDetected) SARS-CoV-2 (PCR) DETECTED A* (NotDetected) Coronavirus NL63 (PCR) Not Detected (NotDetected) Human Metapneumovir PCR Not Detected (NotDetected) Influenza Type A (PCR) Not Detected (NotDetected) Influenza Type B (PCR) Not Detected (NotDetected) M. pneumoniae (PCR) Not Detected (NotDetected) Parainfluenza 1 (PCR) Not Detected (NotDetected) Parainfluenza 2 (PCR) Not Detected (NotDetected) Parainfluenza 3 (PCR) Not Detected (NotDetected) Parainfluenza 4 (PCR) Not Detected (NotDetected) RSV (PCR) Not Detected (NotDetected) Entero/Rhino (PCR) Not Detected (NotDetected) 06/20/22 Range/Units 13:48 WBC (4.8-10.8) K/ul RBC (3.93-5.22) M/uL Hgb (12.0-16.0) g/dl Hct (34.1-44.9) % MCV (80.0-100.0) fL MCH (25.0-34.0) pg MCHC (32.0-36.0) g/dL RDW Std Deviation (36.4-46.3) fL RDW Coeff of Ese (11.5-14.5) % Plt Count (130-400) K/uL MPV (9.4-12.3) fL Immature Gran % (Auto) % Neut % (Auto) % Lymph % (Auto) % [place] % (Auto) % Eos % (Auto) % Baso % (Auto) % Neut # (Auto) (1.4-6.5) K/uL Lymph # (Auto) (1.2-3.4) K/uL [place] # (Auto) (0.24-0.82) K/uL Eos # (Auto) (0-0.50) K/uL Baso # (Auto) (0-0.2) K/uL Immature Gran # (Auto) (0.00-0.02) K/uL Sodium 138 (136-145) mmol/L Potassium 3.4 L (3.5-5.1) mmol/L Chloride 105 (98-107) mmol/L Carbon Dioxide 27 (21-32) mmol/L Anion Gap 6 (3-11) BUN 13 (6-23) mg/dl Creatinine 0.93 (0.6-1.2) mg/dl Est Cr Clr Drug Dosing 55.9 ml/min Est GFR ( Amer) 70.7 ml/min Est GFR (Non-Af Amer) 61.0 ml/min BUN/Creatinine Ratio 14.0 (10-20) Glucose 99 (70-99(Fasting)) mg/dl Calcium 9.2 (8.5-10.1) mg/dl Total Bilirubin 0.6 (0.2-1.0) mg/dl AST 52 H (13-39) U/L ALT 38 (7-52) U/L Alkaline Phosphatase 102 (34-104) U/L Troponin I High Sens 11.6 (0-14) pg/ml Total Protein 7.7 (6.0-8.3) gm/dl Albumin 3.6 (3.4-5.0) gm/dl Globulin 4.1 H (2.5-4.0) gm/dl Albumin/Globulin Ratio 0.9 (0.9-2) Procalcitonin (0-0.5) ng/ml Adenovirus (PCR) (NotDetected) B. pertussis DNA (PCR) (NotDetected) B.parapertussis DNA PCR (NotDetected) C. pneumoniae DNA (PCR) (NotDetected) Coronavirus OC43 (PCR) (NotDetected) Coronavirus HKU1 (PCR) (NotDetected) Coronavirus 229E (PCR) (NotDetected) SARS-CoV-2 (PCR) (NotDetected) Coronavirus NL63 (PCR) (NotDetected) Human Metapneumovir PCR (NotDetected) Influenza Type A (PCR) (NotDetected) Influenza Type B (PCR) (NotDetected) M. pneumoniae (PCR) (NotDetected) Parainfluenza 1 (PCR) (NotDetected) Parainfluenza 2 (PCR) (NotDetected) Parainfluenza 3 (PCR) (NotDetected) Parainfluenza 4 (PCR) (NotDetected) RSV (PCR) (NotDetected) Entero/Rhino (PCR) (NotDetected) Imaging Data Radiologist's Impression: Chest X-Ray 06/20/22 14:18 XR chest 2V PA/lateral CLINICAL HISTORY: Dyspnea TECHNIQUE: 2 views of the chest were obtained. Comparison: Comparison is made to chest radiograph 01/05/2022 and CTA chest 01/05/2022 FINDINGS: Lines and tubes are stable. Cardiomegaly is noted. Reticular interstitial opacities are seen. No evidence of pleural effusion or pneumothorax. IMPRESSION: Interstitial opacities are seen without superimposed airspace disease. ACT 112: Negative or not required by law. Electronically signed by: Nilesh Joshi M.D. 06/20/2022 4:43 PM ECG Data Attestation: I personally reviewed and interpreted this ECG as follows: Indication: + SOB/dyspnea Rate (beats per minute): 80 Rhythm: + normal sinus ECG Intervals/blocks: + IVCD and + Normal QT ECG [place]: + Left axis deviation ECG ST segments: + Nonspecific ST abnormalities MDM Narrative An order was placed for continuous cardiac monitoring. The monitor shows a rate of _72__ with __normal sinus_ rhythm. This is a 72 yo female with IPF who presents with 1 week of worsening SOB and URI symptoms. Labs sent and reassuring. CXR with chronic appearing changes, no new infiltrate or effusion. No evidence of CHF. VS stable. patient found to be positive for COVID. THis is likely the reason for her symptoms and worsening SOB given her underlying pulmonary history. Case discussed with hospitalist for additional evaluation and mgmt. Patient made aware of all results, verbalized understanding and was in agreement with the plan. Impression & Plan Dyspnea, IPF (idiopathic pulmonary fibrosis), Chronic hypoxemic respiratory failure, COVID-19 Discharge Plan Visit Data Chief Complaint: Shortness of Breath/Dyspnea Stated Complaint: SOB ED Provider: Digna Evans ED Midlevel Provider: Eber Mckeon Discharge Problem: Dyspnea, IPF (idiopathic pulmonary fibrosis), Chronic hypoxemic respiratory failure, COVID-19 Patient Disposition: Admitted As Inpatient Discharge Instructions Interventions: ED Discharge Assessment Last Done: 06/20/22 18:38
[2022-06-20 14:48] LABS: Basophils # (auto) 0.04 K/uL (0-0.2); Basophils % (auto) 0.6 %; Eosinophils % (auto) 4.3 %; Hematocrit (blood only) 40.7 % (34.1-44.9); Hemoglobin 12.9 g/dl (12.0-16.0); Immature Granulocytes # (auto) 0.03 K/uL (0.00-0.02); Immature Granulocytes % (auto) 0.4 %; Lymphocytes # (auto) 1.54 K/uL (1.2-3.4); Lymphocytes % (auto) 22.3 %; Mean Corpuscular Hemoglobin 28.4 pg (25.0-34.0); Mean Corpuscular Hgb Conc 31.7 g/dL (32.0-36.0); Mean Corpuscular Volume 89.5 fL (80.0-100.0); Mean Platelet Volume 10.9 fL (9.4-12.3); Monocytes # (auto) 0.58 K/uL (0.24-0.82); Monocytes % (auto) 8.4 %; Neutrophils # (auto) 4.43 K/uL (1.4-6.5); Platelet Count 231 K/uL (130-400); RDW Coefficient of Variation 13.2 % (11.5-14.5); RDW Standard Deviation 43.4 fL (36.4-46.3); Red Blood Count 4.55 M/uL (3.93-5.22); White Blood Count 6.92 K/ul (4.8-10.8)
[2022-06-20 15:02] LABS: Albumin Globulin Ratio 0.9 (0.9-2); Albumin Level 3.6 gm/dl (3.4-5.0); Bilirubin,Total 0.6 mg/dl (0.2-1.0); Calcium 9.2 mg/dl (8.5-10.1); Creatinine Clr Calc Pharmacy 55.9 ml/min; Est GFR (African American) 70.7 ml/min; Globulin 4.1 gm/dl (2.5-4.0); Potassium 3.4 mmol/L (3.5-5.1); Total Protein 7.7 gm/dl (6.0-8.3)
[2022-06-20 15:07] LABS: Troponin I High Sensitivity 11.6 pg/ml (0-14)
[2022-06-20] MEDS ORDERED: POTASSIUM CHLORIDE PWD 20 MEQ PACK PO STA (15:08)
[2022-06-20] MEDS ORDERED: POTASSIUM CHLORIDE CRTAB 20 MEQ TABCR PO STA (15:47)
[2022-06-20 15:48] LABS: Adenovirus PCR Not Detected (NotDetected); Bordetella parapertussis PCR Not Detected (NotDetected); Bordetella pertussis PCR Not Detected (NotDetected); Chlamydia pneumoniae PCR Not Detected (NotDetected); Coronavirus 229E PCR Not Detected (NotDetected); Coronavirus HKU1 PCR Not Detected (NotDetected); Coronavirus NL63 PCR Not Detected (NotDetected); Coronavirus OC43PCR Not Detected (NotDetected); Human Metapneumovirus PCR Not Detected (NotDetected); Influenza A PCR Not Detected (NotDetected); Influenza B PCR Not Detected (NotDetected); Mycoplasma pneumoniae PCR Not Detected (NotDetected); Parainfluenza Virus 1 PCR Not Detected (NotDetected); Parainfluenza Virus 2 PCR Not Detected (NotDetected); Parainfluenza Virus 3 PCR Not Detected (NotDetected); Parainfluenza Virus 4 PCR Not Detected (NotDetected); Respiratory Syncytial VirusPCR Not Detected (NotDetected); Rhinovirus/Enterovirus PCR Not Detected (NotDetected)
[2022-06-20 15:55] LABS: Coronavirus CoV-2 (COVID19)PCR DETECTED (NotDetected)
[2022-06-20] MEDS ORDERED: ALBUTEROL HFA 8 GM INHALER INH STA (16:13)
--- NOTE | 2022-06-20 16:45 | XRay Report ---
XR chest 2V PA/lateral CLINICAL HISTORY: Dyspnea TECHNIQUE: 2 views of the chest were obtained. Comparison: Comparison is made to chest radiograph 01/05/2022 and CTA chest 01/05/2022 FINDINGS: Lines and tubes are stable. Cardiomegaly is noted. Reticular interstitial opacities are seen. No evid ence of pleural effusion or pneumothorax. IMPRESSION: Interstitial opacities are seen without superimposed airspace disease. ACT 112: Negative or not required by law. Electronically signed by: Nilesh Joshi M.D. 06/20/2022 4:43 PM
--- NOTE | 2022-06-20 16:49 | Communication Note ---
Date of Service: June 20, 2022 Resident ED rotation attestation. I saw the patient with Dr. Evans. I did not participate in the documentation. Resident Activity Tracking Resident Involvement: Resident Care Provided Care Provided: Adult ED
[2022-06-20] MEDS ORDERED: dexAMETHasone 4 MG TAB PO ONE (17:14)
[2022-06-20] MEDS ORDERED: DEXAMETHASONE SOD INJ 4 MG/ML VIAL ONE (17:16)
[2022-06-20] MEDS ORDERED: dexAMETHasone 8 MG in SYRINGE 0 ML IV ONE (17:30)
--- NOTE | 2022-06-20 17:33 | History & Physical Report ---
Date of Service June 20, 2022 Assessment & Plan (1) COVID-19: Plan: COVID 19 approximate day of illness - day 6 associated with hypoxia increasing in oxygen requirements - Patient declined remdesivir, likely no benefit this late in her clinical course - Decadron 8mg IV now and then daily - Supportive care with Flutter valve and nebulizers if needed - underlying lung disease noted - DVT prophylaxis continue her Eliquis - follow electrolytes - PCT negative and rest of respiratory bioFIRE negative (2) IPF (idiopathic pulmonary fibrosis): Plan: Patient follows with [facility] pulmonary- was referred back to ILD clinic at [facility] - she is currently not on any antifibrotic therapy - Follows up with them in future- was noted with ESR 67, elevated ALEXEY, and double stranded DNA positive - as above Decadron (3) Diabetes mellitus type II, controlled: Plan: Not on therapy at home will place on sliding scale with Decadron administration - Aspart with CF 20 and carb ratio 1:12 (4) Chronic hypoxemic respiratory failure: Plan: She is on chronic oxygen therapy at home and at night 2-5 liters, has needed 5 liters consistently since last week (5) Left bundle branch block: Plan: Chronic no acute needs (6) CVA (cerebral vascular accident): Plan: History of in June 04 - Continue statin - Continue Apixaban when able - Continue blood pressure control (7) GERD (gastroesophageal reflux disease): Plan: Continue PPI (8) Hypothyroidism: Plan: Continue Synthroid 125mcg daily (9) PSVT (paroxysmal supraventricular tachycardia): Plan: Patient has loop recorder in place for afib concerns from cryptogenic CVA - Continue Apixaban - Continue with Metoprolol 25mg BID - Electrolytes replaced - keep K ~4.0 and Mag ~2.0 History of Present Illness Primary Care Provider: Ted Singh MD 71 YOF with past medical history: Left Thalmic CVA, PSVT (with loop recorder), LBBB, Asthma, ILD/IPF, Asthma, COVID 19 (01/02) Right Total Knee Replacement, Anxiety, Depression, DMII, GERD, Hypothyroidism, IBS, Spinal Stenosis, Afib (on apixaban). Patient comes to the EMD today for complaints of fatigue, increased dyspnea, hypoxia, decrease oral intake and diarrhea. Patient states this started on [id number] and noted that she was just originally fatigued and this progressed to noting increase in dyspnea and checking her oxygen at home she reports being down in the 70s with minimal activity. Over the weekend she noted diarrhea, liquid yellow which is slowly resolving, she was without her caregivers over the weekend and she states that she had decrease in food intake secondary to fatigue and loss of appetite. In the EMD the patient had routine labs performed, CXR, ECG, and was noted to be COVID positive. She will be admitted for increased oxygen needs, started on Decadron, follow nutiritional status, dextrose checks with steroids goal <180, PT/OT. Patient previously was at [facility] following a right total knee replacment in March and she does not want to go back to rehab. She is DNR/DNI COVID test on admission is: POSITIVE Allergies Allergy/AdvReac Type Severity Reaction Status Date / Time latex Allergy Intermediate Rash, hand Verified 03/27/22 09:06 swelling Sulfa (Sulfonamide Allergy Intermediate Rash Verified 03/27/22 09:06 Antibiotics) Penicillins Allergy Unknown Unknown Verified 03/27/22 09:06 reaction (as teenager) morphine AdvReac Intermediate Anxiety Verified 03/27/22 09:06 Home Medications Medication Instructions Recorded Confirmed Type topiramate 100 mg tablet (Topamax) 100 mg PO QPM 07/13/19 04/04/22 History blood sugar diagnostic (WakingAppTouch #100 ea 05/18/21 04/04/22 Rx Ultra Test strips) blood-glucose meter (OneTouch #1 ea 05/18/21 04/04/22 Rx Ultra2 Meter kit) lancets 33 gauge (OneTouch Delica #100 ea 05/18/21 04/04/22 Rx Lancets) Wheelchair (Manual) #1 ea 06/28/21 04/04/22 Rx pantoprazole 40 mg tablet,delayed 40 mg PO QAM #90 tabs 08/12/21 04/04/22 Rx release apixaban 5 mg tablet (Eliquis) 5 mg PO BID #180 tabs 09/12/21 04/04/22 Rx metoprolol tartrate 25 mg tablet 25 mg PO BID 30 days #60 tabs 09/13/21 04/04/22 Rx amitriptyline 25 mg tablet 25 mg PO HS #90 tabs 09/26/21 04/04/22 Rx atorvastatin 40 mg tablet 40 mg PO QAM 30 days #90 tabs 01/03/22 04/04/22 Rx Portable Oxygen #1 ea 01/25/22 04/04/22 Rx guaifenesin 100 mg/5 mL oral liquid 200 mg PO Q4H PRN Cough 02/14/22 04/04/22 History Portable Oxygen #1 ea 02/17/22 04/04/22 Rx oxycodone-acetaminophen 5 mg-325 1 tab PO Q6H PRN pain #40 tabs 03/29/22 04/04/22 Rx mg tablet levothyroxine 125 mcg tablet 125 mcg PO QAM #90 tabs 04/25/22 Rx tramadol 50 mg tablet 50 mg PO Q8H PRN pain #30 tabs 05/03/22 Rx Past Med/Surg History Medical History (Updated 06/20/22 @ 17:23 by SHOSHANA Boothe) Anxiety and depression Arrhythmia ? hx of a. fib- on Eliquis per cardiology Bipolar disorder Cerebrovascular accident (CVA) of left thalamus 06/11/2021 (post-op Right TKA) > POD#1 ischemic left thalamic stroke CVA > 9 months from DOS Chronic hypoxemic respiratory failure GERD (gastroesophageal reflux disease) History of blood transfusion Post-op 2016 History of COVID-19 12/2020 > fully recovered Hyperglycemia Hx mild hyperglycemia under surveillance by PCP. Most recent A1C 5.6% (06/12/21) Hypothyroidism IBS (irritable bowel syndrome) Intermittent flares - takes Amitriptyline and Protonix for GI pain control IPF (idiopathic pulmonary fibrosis) Left bundle branch block Follows with [facility] cardiology On home oxygen therapy 2-3L at rest/5L with activity Osteopenia Pulmonary hypertension Moderately elevated estimated RVSP (RVSP 40-50mmhg) per 01/19/22 echo Spinal stenosis Surgical History History of anesthesia reaction "Slow to wake" x1 episode after 3 hour surgery in 2017- she states she became violent and upset, hallucinated while waking up. Began to calm down once she heard her daughter's voice. History of arthroscopy R/L knee History of cholecystectomy History of colonoscopy History of hernia surgery History of hysterectomy History of loop recorder History of surgery Right Quadriceps Repair (06/14/21): LMA#4 at [facility]. No issues noted per post-op anesthesia progress note. History of total knee replacement Right TKA (06/10/21): SAB at L4-5 (x1 attempt) + PNB at [facility] Status post gastric banding surgery + removal Family History Family/Other No problems noted. Mother Colon cancer Dementia Father , at age 79 from mesothelioma. Mesothelioma Sister No problems noted. Sister No problems noted. Son No problems noted. Daughter No problems noted. Other Family history of diabetes mellitus in father Denies family history of Ovarian cancer Prostate cancer Myocardial infarction Breast cancer Social History Smoking Status: Former smoker Tobacco Type: Cigarettes packs per day: 1; Years Smoked: 8; Number of Years Since Quit: 20; Second Hand Exposure: Yes ( A CHILD); Hx Alcohol Use: No Hx Substance Use: No Preferred Language: South African Communication Ability: Effective Visual Impairment: No Limitations Basket Hand Braider Required: No Beliefs That Will Affect Care: None marital status: Single Current Living Situation: Alone Current Living Situation Comment: IN 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 current occupational status: retired Feels Safe at Home: Yes Childhood Exposure to Second-Hand Smoke: Yes Dental Care, Regularly: Yes Physical Activity Frequency: Daily Seatbelt Use: always Sunscreen Use: No Assistive Devices: Oxygen - Continuous and Walker Review of Systems Review of Systems: REVIEW OF SYSTEMS: Constitutional: No fever, sweats or chills Eyes: No diplopia, no worsening or blurred vision ENT: normal hearing, no trouble swallowing Respiratory: (+) cough, sputum, dyspnea at rest or on exertion Cardiovascular: No chest pain, tightness or palpitations Abdomen: (+) diarrhea, No pain, nausea, vomiting, diarrhea or constipation Musculoskeletal: (+) right knee joint pain, No calf pain, swelling Neurologic: No weakness, numbness/tingling, or balance problems Psychiatric: No anxiety or depression Skin: No rash or itch Physical Exam Physical Exam: PHYSICAL EXAM: General: awake, alert, no apparent distress Head: Normocephalic, atraumatic ENT: PERRL, EOMI, no pharyngeal exudate, mucous membranes dry Neuro: AAO x 3, speech clear and appropriate, strength intact bilaterally 5/5, sensation intact and equal all extremities and dermatomes, no pronator drift Chest: equal rise and fall of the chest, no accessory muscle use, no heaves or thrills, fine crackles on auscultation, on 5LNC Cardiac: Regular rate and rhythm, telemetry reviewed-afib, skin warm dry, cap refill <3 seconds, peripheral pulses +2 no JVD, no murmur, no edema GI: NABS x 4 quadrants, soft, nontender to palpation, no rebound, guarding or tenderness : Spontaneously voiding, no pain, no CVA tenderness, Extremities: Normal inspection, no peripheral edema or erythema, calfs nontender to palpation Psych: Normal mood and affect Skin: well healed incision to right knee, no rash or erythema Results & Data Results & Data ([facility]) Vital Signs (Past 12 Hours) Vital Signs Temp Pulse Pulse Resp BP BP Pulse Ox 06/20/22 16:04 75 18 100 06/20/22 14:42 77 18 94 06/20/22 14:42 76 18 124/74 94 06/20/22 13:47 06/20/22 13:48 37.2 C 91 H 20 124/74 98 O2 Del Method O2 Flow Rate 06/20/22 16:04 Nasal Cannula 5 06/20/22 14:42 Nasal Cannula 5 06/20/22 14:42 Nasal Cannula 5 06/20/22 13:47 Nasal Cannula 5 06/20/22 13:48 Nasal Cannula 5 Laboratory Results Laboratory Results - last 24 hr 06/20/22 06/20/22 06/20/22 13:45 13:48 13:48 WBC 6.92 RBC 4.55 Hgb 12.9 Hct 40.7 MCV 89.5 MCH 28.4 MCHC 31.7 L RDW Std Deviation 43.4 RDW Coeff of Ese 13.2 Plt Count 231 MPV 10.9 Immature Gran % (Auto) 0.4 Neut % (Auto) 64.0 Lymph % (Auto) 22.3 Liberty % (Auto) 8.4 Eos % (Auto) 4.3 Baso % (Auto) 0.6 Neut # (Auto) 4.43 Lymph # (Auto) 1.54 Liberty # (Auto) 0.58 Eos # (Auto) 0.30 Baso # (Auto) 0.04 Immature Gran # (Auto) 0.03 H Sodium Potassium Chloride Carbon Dioxide Anion Gap BUN Creatinine Est Cr Clr Drug Dosing Est GFR ( Amer) Est GFR (Non-Af Amer) BUN/Creatinine Ratio Glucose Calcium Total Bilirubin AST ALT Alkaline Phosphatase Troponin I High Sens Total Protein Albumin Globulin Albumin/Globulin Ratio Procalcitonin < 0.05 Adenovirus (PCR) Not Detected B. pertussis DNA (PCR) Not Detected B.parapertussis DNA PCR Not Detected C. pneumoniae DNA (PCR) Not Detected Coronavirus OC43 (PCR) Not Detected Coronavirus HKU1 (PCR) Not Detected Coronavirus 229E (PCR) Not Detected SARS-CoV-2 (PCR) DETECTED A* Coronavirus NL63 (PCR) Not Detected Human Metapneumovir PCR Not Detected Influenza Type A (PCR) Not Detected Influenza Type B (PCR) Not Detected M. pneumoniae (PCR) Not Detected Parainfluenza 1 (PCR) Not Detected Parainfluenza 2 (PCR) Not Detected Parainfluenza 3 (PCR) Not Detected Parainfluenza 4 (PCR) Not Detected RSV (PCR) Not Detected Entero/Rhino (PCR) Not Detected 06/20/22 13:48 WBC RBC Hgb Hct MCV MCH MCHC RDW Std Deviation RDW Coeff of Ese Plt Count MPV Immature Gran % (Auto) Neut % (Auto) Lymph % (Auto) Liberty % (Auto) Eos % (Auto) Baso % (Auto) Neut # (Auto) Lymph # (Auto) Liberty # (Auto) Eos # (Auto) Baso # (Auto) Immature Gran # (Auto) Sodium 138 Potassium 3.4 L Chloride 105 Carbon Dioxide 27 Anion Gap 6 BUN 13 Creatinine 0.93 Est Cr Clr Drug Dosing 55.9 Est GFR ( Amer) 70.7 Est GFR (Non-Af Amer) 61.0 BUN/Creatinine Ratio 14.0 Glucose 99 Calcium 9.2 Total Bilirubin 0.6 AST 52 H ALT 38 Alkaline Phosphatase 102 Troponin I High Sens 11.6 Total Protein 7.7 Albumin 3.6 Globulin 4.1 H Albumin/Globulin Ratio 0.9 Procalcitonin Adenovirus (PCR) B. pertussis DNA (PCR) B.parapertussis DNA PCR C. pneumoniae DNA (PCR) Coronavirus OC43 (PCR) Coronavirus HKU1 (PCR) Coronavirus 229E (PCR) SARS-CoV-2 (PCR) Coronavirus NL63 (PCR) Human Metapneumovir PCR Influenza Type A (PCR) Influenza Type B (PCR) M. pneumoniae (PCR) Parainfluenza 1 (PCR) Parainfluenza 2 (PCR) Parainfluenza 3 (PCR) Parainfluenza 4 (PCR) RSV (PCR) Entero/Rhino (PCR) Diagnostic Findings Chest X-Ray 06/20/22 14:18 XR chest 2V PA/lateral CLINICAL HISTORY: Dyspnea TECHNIQUE: 2 views of the chest were obtained. Comparison: Comparison is made to chest radiograph 01/05/2022 and CTA chest 01/05/2022 FINDINGS: Lines and tubes are stable. Cardiomegaly is noted. Reticular interstitial opacities are seen. No evidence of pleural effusion or pneumothorax. IMPRESSION: Interstitial opacities are seen without superimposed airspace disease. ACT 112: Negative or not required by law. Electronically signed by: Nilesh Joshi M.D. 06/20/2022 4:43 PM Medications Administered Home Medications topiramate 100 mg tablet (Topamax) 100 mg PO QPM 07/13/19 [History Confirmed 04/04/22] blood sugar diagnostic (microDimensionsuch Ultra Test strips) #100 ea 05/18/21 [Rx Confirmed 04/04/22] blood-glucose meter (WakingAppTouch Ultra2 Meter kit) #1 ea 05/18/21 [Rx Confirmed 04/04/22] lancets 33 gauge (WakingAppTouch Delica Lancets) #100 ea 05/18/21 [Rx Confirmed 04/04/22] Wheelchair (Manual) #1 ea 06/28/21 [Rx Confirmed 04/04/22] pantoprazole 40 mg tablet,delayed release 40 mg PO QAM #90 tabs 08/12/21 [Rx Confirmed 04/04/22] apixaban 5 mg tablet (Eliquis) 5 mg PO BID #180 tabs 09/12/21 [Rx Confirmed 04/04/22] metoprolol tartrate 25 mg tablet 25 mg PO BID 30 days #60 tabs 09/13/21 [Rx Confirmed 04/04/22] amitriptyline 25 mg tablet 25 mg PO HS #90 tabs 09/26/21 [Rx Confirmed 04/04/22] atorvastatin 40 mg tablet 40 mg PO QAM 30 days #90 tabs 03/22/22 [Rx Confirmed 04/04/22] Portable Oxygen #1 ea 01/25/22 [Rx Confirmed 04/04/22] guaifenesin 100 mg/5 mL oral liquid 200 mg PO Q4H PRN Cough 02/14/22 [History Confirmed 04/04/22] Portable Oxygen #1 ea 02/17/22 [Rx Confirmed 04/04/22] oxycodone-acetaminophen 5 mg-325 mg tablet 1 tab PO Q6H PRN pain #40 tabs 03/29/22 [Rx Confirmed 04/04/22] levothyroxine 125 mcg tablet 125 mcg PO QAM #90 tabs 04/25/22 [Rx] tramadol 50 mg tablet 50 mg PO Q8H PRN pain #30 tabs 05/03/22 [Rx] Active Medications Dexamethasone 8 mg/ Syringe 2 mls @ 1 mls/min IV ONE ONE Stop: 06/20/22 17:31 ECG Additional Comments: Normal sinus rhythm Left axis deviation Inferior infarct , age undetermined Anterior infarct (cited on or before 06-JAN-2022) ST & T wave abnormality, consider lateral ischemia Abnormal ECG When compared with ECG of 06-JAN-2022 17:05, Inferior infarct is now Present Code Status & VTE Plan Code Status CODE: DNR/DNI VTE: SCDS, Eliquis VTE Prophylaxis Plan VTE Prophylaxis will be ordered: Yes Supervising Physician Co-Signing Physician Notes I supervised SHOSHANA Troncoso on this admission. I interviewed and examined the patient independently of him. The plan is as written in his note except for any following changes/exceptions: None 72yo F w/ hx of ILD (possibly related to rheumatologic issue with positive ds- DNA and strongly positive ALEXEY) who presents with Covid. Reports that she has been feeling ill for about 6 days. Increasing shortness of breath and oxygen demand with report that she has had to turn herself up to 5L at rest and is still dipping down to mid-70% range with exertion on the 5L. She has had increased cough, sputum production, and nasal congestion as well. Given increased O2 requirements and Covid, will treat with dexamethasone. Defer pulmonary consult at this time unless O2 needs continue to increase. PG Care Time/CCT Total # of Minutes Spent Total Time Spent with Patient: Total time spent is greater than 50% in coordination of care (as documented) at patient's floor/unit and/or counseling patient: Coding Level of Care Code 30124 Initial Inpt Care Lvl 3 Diagnoses COVID-19 U07.1 IPF (idiopathic pulmonary fibrosis) J84.112 Diabetes mellitus type II, controlled E11.9 Chronic hypoxemic respiratory failure J96.11 Left bundle branch block I44.7 CVA (cerebral vascular accident) I63.9 CVA mechanism: unspecified GERD (gastroesophageal reflux disease) K21.9 Hypothyroidism E03.9 PSVT (paroxysmal supraventricular tachycardia) I47.1 (1) CVA (cerebral vascular accident) CVA mechanism: unspecified Qualified Code(s): I63.9 - Cerebral infarction, unspecified
[2022-06-20] MEDS ORDERED: POLYETHYLENE (MIRALAX) 17 GM PACK PO PRN (18:38)
[2022-06-20] MEDS ORDERED: CARBOHYDRATES FOR HYPOGLYCEMIA PO PRN (18:38)
[2022-06-20] MEDS ORDERED: ACETAMINOPHEN 325 MG TAB PO PRN (18:38)
[2022-06-20] MEDS ORDERED: GLUCOSE 40% GEL 15 GM TUBE PO PRN (18:38)
[2022-06-20] MEDS ORDERED: GLUCAGON FOR INJ 1 MG VIAL SQ PRN (18:38)
[2022-06-20] MEDS ORDERED: ONDANSETRON INJ 2 MG/ML 2 ML VIAL IV PRN (18:38)
[2022-06-20] MEDS ORDERED: traMADol HCL 50 MG TABLET PO PRN (18:38)
[2022-06-20] MEDS ORDERED: DEXTROSE 50% 50 ML SYRINGE IV PRN (18:38)
[2022-06-20] MEDS ORDERED: oxyCODONE/ACETAMINOPHEN 5mg/325mg TAB PO PRN (18:38)
[2022-06-20] MEDS ORDERED: GLUCOSE 10 TAB/TUBE PO PRN (18:38)
[2022-06-20] MEDS ORDERED: guaiFENesin SUGAR FREE 200 MG/10 ML UDC PO PRN (18:55)
[2022-06-20] MEDS: AMITRIPTYLINE HCL 25 MG TAB PO SCH (20:36)
[2022-06-20] MEDS: METOPROLOL TARTRATE 25 MG TAB PO SCH (20:36)
[2022-06-20] MEDS: APIXABAN 5 MG TABLET PO SCH (20:36)
[2022-06-20] MEDS: TOPIRAMATE 100 MG TAB PO SCH (20:40)
[2022-06-20] MEDS: INSULIN ASPART PER UNIT SC SCH (20:43)
[2022-06-21] MEDS: LEVOTHYROXINE SODIUM 125 MCG TABLET PO SCH (05:49)
[2022-06-21 05:53] LABS: Basophils # (auto) 0.01 K/uL (0-0.2); Basophils % (auto) 0.2 %; Hematocrit (blood only) 39.8 % (34.1-44.9); Hemoglobin 12.6 g/dl (12.0-16.0); Immature Granulocytes # (auto) 0.02 K/uL (0.00-0.02); Immature Granulocytes % (auto) 0.4 %; Lymphocytes # (auto) 0.93 K/uL (1.2-3.4); Lymphocytes % (auto) 19.4 %; Mean Corpuscular Hemoglobin 27.6 pg (25.0-34.0); Mean Corpuscular Hgb Conc 31.7 g/dL (32.0-36.0); Mean Corpuscular Volume 87.3 fL (80.0-100.0); Mean Platelet Volume 10.8 fL (9.4-12.3); Monocytes # (auto) 0.27 K/uL (0.24-0.82); Monocytes % (auto) 5.6 %; Neutrophils # (auto) 3.57 K/uL (1.4-6.5); Neutrophils % (auto) 74.4 %; Platelet Count 227 K/uL (130-400); RDW Coefficient of Variation 13.1 % (11.5-14.5); RDW Standard Deviation 41.2 fL (36.4-46.3); Red Blood Count 4.56 M/uL (3.93-5.22)
[2022-06-21 06:18] LABS: BUN Creatinine Ratio 15.1 (10-20); Calcium 9.6 mg/dl (8.5-10.1); Creatinine Clr Calc Pharmacy 55.6 ml/min; Est GFR (African American) 70.7 ml/min; Potassium 4.1 mmol/L (3.5-5.1)
[2022-06-21] MEDS: INSULIN ASPART PER UNIT SC SCH ×2 (08:54→11:47)
[2022-06-21] MEDS ORDERED: PANTOprazole 40 MG TAB PO SCH (09:00)
[2022-06-21] MEDS: ATORVASTATIN 40 MG TAB PO SCH (09:44)
[2022-06-21] MEDS: METOPROLOL TARTRATE 25 MG TAB PO SCH ×2 (09:45→21:42)
[2022-06-21] MEDS: APIXABAN 5 MG TABLET PO SCH ×2 (09:45→21:42)
[2022-06-21] MEDS: busPIRone 15 MG TAB PO SCH (11:40)
--- NOTE | 2022-06-21 15:08 | Hospitalist Progress Note ---
Date of Service June 21, 2022 Assessment & Plan (1) COVID-19: Plan: COVID 19 approximate day of illness - day 6 on admission associated with hypoxia increasing in oxygen requirements - Patient declined remdesivir, likely no benefit this late in her clinical course - Decadron 6mg IV now and then daily - Supportive care with Flutter valve and nebulizers if needed - underlying lung disease noted - DVT prophylaxis continue her Eliquis - follow electrolytes - PCT negative and rest of respiratory bioFIRE negative (2) IPF (idiopathic pulmonary fibrosis): Plan: Patient follows with [facility] pulmonary- was referred back to ILD clinic at [facility] - she is currently not on any antifibrotic therapy - Follows up with them in future- was noted with ESR 67, elevated ALEXEY, and double stranded DNA positive - as above Decadron (3) Chronic hypoxemic respiratory failure: Plan: [place] 2LPM O2 at rest. 4LPM O2 on exertion She is on chronic oxygen therapy at home and at night 2-5 liters, has needed 5 liters consistently since last week. Wean O2 to aim sats > 90% (4) Left bundle branch block: Plan: Chronic no acute needs (5) CVA (cerebral vascular accident): Plan: History of in June 04 - Continue statin - Continue Apixaban when able - Continue blood pressure control (6) GERD (gastroesophageal reflux disease): Plan: Continue PPI (7) Hypothyroidism: Plan: Continue Synthroid 125mcg daily (8) PSVT (paroxysmal supraventricular tachycardia): Plan: Patient has loop recorder in place for afib concerns from cryptogenic CVA - Continue Apixaban - Continue with Metoprolol 25mg BID - Electrolytes replaced - keep K ~4.0 and Mag ~2.0 Plan VTE Prophylaxis - Eliquis Diet - regular Disposition - continue on med/surg, continued admission as long as making progress back to baseline O2 requirement, PT/OT ordered Admission and Anticipated Discharge Date Admission Date: June 20, 2022 Subjective No significant change in shortness of breath, mainly on exertion. Diarrhea initially but now improved. No BM for 2 days. No nausea or vomiting. Good appetite. Non-productive cough. No fever or chills. Baseline O2 requirement 2L at rest 4L on exertion Review of Systems Review of Systems: All systems reviewed & are unremarkable except as noted in Subjective Physical Exam Constitutional: WD/WN, vitals as above Respiratory: normal respiratory effort; no respiratory distress Auscultation: + crackles (fine bibasal to mid zone posteriorly); no diminished lung sounds, no rales, no rhonchi and no wheezes Cardiovascular: Rate/Rhythm: regular rate and regular rhythm Heart Sounds: + murmur (LUSB, known moderate tricuspid regurg) Extremities: normal capillary refill; no calf tenderness and no pedal edema Gastrointestinal (Abdomen): normal bowel sounds, soft, nontender, no hepatosplenomegaly Musculoskeletal: no cyanosis or clubbing, extremities motor strength 5/5 Skin: no rashes, warm and dry Neurologic: moves all extremities and awake; not confused Psychiatric: A+Ox3, euthymic affect Results & Data Results & Data ([facility]) Vital Signs (Past 12 Hours) Vital Signs Temp Pulse Resp BP Pulse Ox O2 Del Method O2 Flow Rate 06/21/22 09:00 Nasal Cannula 5 06/21/22 09:55 99 06/21/22 08:35 36.6 C 61 17 145/83 H 98 Room Air PG Care Time/CCT Total # of Minutes Spent Total Time Spent with Patient: Total time spent is greater than 50% in coordination of care (as documented) at patient's floor/unit and/or counseling patient: Coding Level of Care Code 74377 Subseq Hosp Care Lvl 2 Diagnoses COVID-19 U07.1 IPF (idiopathic pulmonary fibrosis) J84.112 Chronic hypoxemic respiratory failure J96.11 Left bundle branch block I44.7 CVA (cerebral vascular accident) I63.9 CVA mechanism: unspecified GERD (gastroesophageal reflux disease) K21.9 Hypothyroidism E03.9 PSVT (paroxysmal supraventricular tachycardia) I47.1 (1) CVA (cerebral vascular accident) CVA mechanism: unspecified Qualified Code(s): I63.9 - Cerebral infarction, unspecified
--- NOTE | 2022-06-21 17:36 | Electrocardiogram Report ---
Test Reason : Blood Pressure : / mmHG Vent. Rate : 080 BPM Atrial Rate : 080 BPM P-R Int : 184 ms QRS Dur : 120 ms QT Int : 414 ms P-R-T Axes : 009 -30 129 degrees QTc Int : 477 ms Normal sinus rhythm Left axis deviation Left bundle branch block Abnormal ECG Confirmed by Derrell Hardin ([id number]) on 06/21/2022 5:35:54 PM Referred By: REFERRED SELF Confirmed By:Rashid Hardin
[2022-06-21] MEDS: dexAMETHasone 6 MG in SYRINGE 0 ML IV SCH (17:52)
[2022-06-21] MEDS: AMITRIPTYLINE HCL 25 MG TAB PO SCH (21:43)
[2022-06-21] MEDS: TOPIRAMATE 100 MG TAB PO SCH (21:43)
[2022-06-22] MEDS ORDERED: Nursing to Pharmacy Communication SCH (05:30)
[2022-06-22] MEDS: PANTOprazole 40 MG TAB PO SCH (06:13)
[2022-06-22] MEDS: LEVOTHYROXINE SODIUM 125 MCG TABLET PO SCH (06:13)
[2022-06-22 08:25] LABS: Basophils # (auto) 0.02 K/uL (0-0.2); Basophils % (auto) 0.2 %; Eosinophils # (auto) 0.02 K/uL (0-0.50); Eosinophils % (auto) 0.2 %; Hematocrit (blood only) 39.4 % (34.1-44.9); Hemoglobin 12.6 g/dl (12.0-16.0); Immature Granulocytes # (auto) 0.06 K/uL (0.00-0.02); Immature Granulocytes % (auto) 0.6 %; Lymphocytes # (auto) 1.71 K/uL (1.2-3.4); Lymphocytes % (auto) 17.2 %; Mean Corpuscular Hemoglobin 28.3 pg (25.0-34.0); Mean Corpuscular Volume 88.3 fL (80.0-100.0); Mean Platelet Volume 10.9 fL (9.4-12.3); Monocytes # (auto) 0.69 K/uL (0.24-0.82); Monocytes % (auto) 6.9 %; Neutrophils # (auto) 7.46 K/uL (1.4-6.5); Neutrophils % (auto) 74.9 %; Platelet Count 260 K/uL (130-400); RDW Coefficient of Variation 13.1 % (11.5-14.5); RDW Standard Deviation 41.8 fL (36.4-46.3); Red Blood Count 4.46 M/uL (3.93-5.22); White Blood Count 9.96 K/ul (4.8-10.8)
[2022-06-22 08:49] LABS: BUN Creatinine Ratio 24.7 (10-20); Calcium 9.6 mg/dl (8.5-10.1); Creatinine Clr Calc Pharmacy 55.6 ml/min; Est GFR (African American) 70.7 ml/min; Magnesium 1.9 mg/dl (1.7-2.4)
[2022-06-22] MEDS: APIXABAN 5 MG TABLET PO SCH ×2 (09:02→21:10)
[2022-06-22] MEDS: busPIRone 15 MG TAB PO SCH (09:02)
[2022-06-22] MEDS: ATORVASTATIN 40 MG TAB PO SCH (09:02)
[2022-06-22] MEDS: METOPROLOL TARTRATE 25 MG TAB PO SCH ×2 (09:02→21:10)
[2022-06-22] MEDS ORDERED: SODIUM CHLORIDE 0.65% NA SOLN 45 ML (OCEAN) ONE (11:16)
[2022-06-22] MEDS: dexAMETHasone 6 MG in SYRINGE 0 ML IV SCH (17:32)
[2022-06-22] MEDS: AMITRIPTYLINE HCL 25 MG TAB PO SCH (21:11)
[2022-06-22] MEDS: TOPIRAMATE 100 MG TAB PO SCH (21:12)
--- NOTE | 2022-06-22 22:02 | Hospitalist Progress Note ---
Date of Service June 22, 2022 Assessment & Plan (1) COVID-19: Plan: COVID 19 approximate day of illness - day 6 on admission associated with hypoxia increasing in oxygen requirements - Patient declined remdesivir, likely no benefit this late in her clinical course - Decadron 6mg IV now and then daily - Supportive care with Flutter valve and nebulizers if needed - underlying lung disease noted - DVT prophylaxis continue her Eliquis - follow electrolytes - PCT negative and rest of respiratory bioFIRE negative Patient appears to be improving on 06/22 now on 2-4 liters. (2) IPF (idiopathic pulmonary fibrosis): Plan: Patient follows with [facility]- was referred back to [place] [facility] [place] she is currently not on any antifibrotic therapy - Follows up with them in future- was noted with ESR 67, elevated ALEXEY, and double stranded DNA positive - as above Decadron (3) Chronic hypoxemic respiratory failure: Plan: Bas[place] 2LPM O2 at rest. 4LPM O2 on exertion She is on chronic oxygen therapy at home and at night 2-5 liters, has needed 5 liters consistently since last week. Wean O2 to aim sats > 90% (4) Left bundle branch block: Plan: Chronic no acute needs (5) CVA (cerebral vascular accident): Plan: History of in June 04 - Continue statin - Continue Apixaban when able - Continue blood pressure control (6) GERD (gastroesophageal reflux disease): Plan: Continue PPI (7) Hypothyroidism: Plan: Continue Synthroid 125mcg daily (8) PSVT (paroxysmal supraventricular tachycardia): Plan: Patient has loop recorder in place for afib concerns from cryptogenic CVA - Continue Apixaban - Continue with Metoprolol 25mg BID - Electrolytes replaced - keep K ~4.0 and Mag ~2.0 Plan VTE Prophylaxis - Eliquis Diet - regular Disposition - continue on med/surg, continued admission as long as making progress back to baseline O2 requirement, PT/OT ordered Admission and Anticipated Discharge Date Admission Date: June 20, 2022 Subjective Patient reports feeling better. She has no new complaints. Review of Systems Review of Systems: All systems reviewed & are unremarkable except as noted in HPI & below Physical Exam Constitutional: WD/WN, vitals as above Respiratory: normal respiratory effort; no respiratory distress Auscultation: + crackles (fine bibasal to mid zone posteriorly); no diminished lung sounds, no rales, no rhonchi and no wheezes Cardiovascular: Rate/Rhythm: regular rate and regular rhythm Heart Sounds: + murmur (LUSB, known moderate tricuspid regurg) Extremities: normal capillary refill; no calf tenderness and no pedal edema Gastrointestinal (Abdomen): normal bowel sounds, soft, nontender, no hepatosplenomegaly Musculoskeletal: no cyanosis or clubbing, extremities motor strength 5/5 Skin: no rashes, warm and dry Neurologic: moves all extremities and awake; not confused Psychiatric: A+Ox3, euthymic affect Results & Data Results & Data ([facility]) Vital Signs (Past 12 Hours) Vital Signs Temp Pulse Resp BP Pulse Ox O2 Del Method O2 Flow Rate 06/22/22 21:06 36.9 C 62 16 108/58 L 99 Nasal Cannula 2 06/22/22 17:34 36.9 C 54 L 17 133/71 94 Nasal Cannula 2 PG Care Time/CCT Total # of Minutes Spent Total Time Spent with Patient: Total time spent is greater than 50% in coordination of care (as documented) at patient's floor/unit and/or counseling patient: Coding Level of Care Code 79498 Subseq Hosp Care Lvl 2 Diagnoses COVID-19 U07.1 IPF (idiopathic pulmonary fibrosis) J84.112 Chronic hypoxemic respiratory failure J96.11 Left bundle branch block I44.7 CVA (cerebral vascular accident) I63.9 CVA mechanism: unspecified GERD (gastroesophageal reflux disease) K21.9 Hypothyroidism E03.9 PSVT (paroxysmal supraventricular tachycardia) I47.1 (1) CVA (cerebral vascular accident) CVA mechanism: unspecified Qualified Code(s): I63.9 - Cerebral infarction, unspecified
[2022-06-23] MEDS: LEVOTHYROXINE SODIUM 125 MCG TABLET PO SCH (05:57)
[2022-06-23] MEDS: PANTOprazole 40 MG TAB PO SCH (05:57)
[2022-06-23 07:01] LABS: Basophils # (auto) 0.06 K/uL (0-0.2); Basophils % (auto) 0.6 %; Eosinophils # (auto) 0.27 K/uL (0-0.50); Eosinophils % (auto) 2.7 %; Hemoglobin 11.6 g/dl (12.0-16.0); Immature Granulocytes # (auto) 0.07 K/uL (0.00-0.02); Immature Granulocytes % (auto) 0.7 %; Lymphocytes # (auto) 2.98 K/uL (1.2-3.4); Mean Corpuscular Hemoglobin 28.6 pg (25.0-34.0); Mean Corpuscular Hgb Conc 32.2 g/dL (32.0-36.0); Mean Corpuscular Volume 88.7 fL (80.0-100.0); Monocytes % (auto) 9.1 %; Neutrophils # (auto) 5.64 K/uL (1.4-6.5); Neutrophils % (auto) 56.9 %; Platelet Count 225 K/uL (130-400); RDW Coefficient of Variation 13.2 % (11.5-14.5); RDW Standard Deviation 42.2 fL (36.4-46.3); Red Blood Count 4.06 M/uL (3.93-5.22); White Blood Count 9.92 K/ul (4.8-10.8)
[2022-06-23 07:47] LABS: BUN Creatinine Ratio 19.3 (10-20); Creatinine Clr Calc Pharmacy 36.9 ml/min; Est GFR (African American) 43.1 ml/min; Est GFR (Non-African American) 37.2 ml/min; Magnesium 1.8 mg/dl (1.7-2.4); Potassium 3.5 mmol/L (3.5-5.1)
[2022-06-23] MEDS: busPIRone 15 MG TAB PO SCH (08:56)
[2022-06-23] MEDS: ATORVASTATIN 40 MG TAB PO SCH (08:56)
[2022-06-23] MEDS: METOPROLOL TARTRATE 25 MG TAB PO SCH ×2 (08:56→20:05)
[2022-06-23] MEDS: APIXABAN 5 MG TABLET PO SCH ×2 (08:57→20:05)
--- NOTE | 2022-06-23 17:37 | Hospitalist Progress Note ---
Date of Service June 23, 2022 Assessment & Plan (1) COVID-19: Plan: COVID 19 approximate day of illness - day 6 on admission associated with hypoxia increasing in oxygen requirements - Patient declined remdesivir, likely no benefit this late in her clinical course - Decadron 6mg IV now and then daily - Supportive care with Flutter valve and nebulizers if needed - underlying lung disease noted - DVT prophylaxis continue her Eliquis - follow electrolytes - PCT negative and rest of respiratory bioFIRE negative Patient appears to be improving on 06/22 now on 2 liters (2) IPF (idiopathic pulmonary fibrosis): Plan: Patient follows with [facility]- was referred back to [place] clinic [place] [facility] [place] - she is currently not on any antifibrotic therapy - Follows up with them in future- was noted with ESR 67, elevated ALEXEY, and double stranded DNA positive - as above Decadron (3) Chronic hypoxemic respiratory failure: Plan: Baslein 2LPM O2 at rest. 4LPM O2 on exertion She is on chronic oxygen therapy at home and at night 2-5 liters, has needed 5 liters consistently since last week. Wean O2 to aim sats > 90% (4) Left bundle branch block: Plan: Chronic no acute needs (5) CVA (cerebral vascular accident): Plan: History of in June 04 - Continue statin - Continue Apixaban when able - Continue blood pressure control (6) GERD (gastroesophageal reflux disease): Plan: Continue PPI (7) Hypothyroidism: Plan: Continue Synthroid 125mcg daily (8) PSVT (paroxysmal supraventricular tachycardia): Plan: Patient has loop recorder in place for afib concerns from cryptogenic CVA - Continue Apixaban - Continue with Metoprolol 25mg BID - Electrolytes replaced - keep K ~4.0 and Mag ~2.0 Plan VTE Prophylaxis - Eliquis Diet - regular Disposition - continue on med/surg, continued admission as long as making progress back to baseline O2 requirement, PT/OT ordered Admission and Anticipated Discharge Date Admission Date: June 20, 2022 Subjective Patient has no new complaints Review of Systems Review of Systems: Other Physical Exam Physical Exam: Lying in bed comfortably Results & Data Results & Data ([facility]) Vital Signs (Past 12 Hours) Vital Signs Temp Pulse Resp BP Pulse Ox O2 Del Method O2 Flow Rate 06/23/22 15:43 37.0 C 63 17 118/72 98 Nasal Cannula 2 06/23/22 09:00 Nasal Cannula 2 06/23/22 08:55 37 C 61 16 129/76 99 Nasal Cannula 2 PG Care Time/CCT Total # of Minutes Spent Total Time Spent with Patient: Total time spent is greater than 50% in coordination of care (as documented) at patient's floor/unit and/or counseling patient: Coding Level of Care Code 07116 Subseq Hosp Care Lvl 1 Diagnoses COVID-19 U07.1 IPF (idiopathic pulmonary fibrosis) J84.112 Chronic hypoxemic respiratory failure J96.11 Left bundle branch block I44.7 CVA (cerebral vascular accident) I63.9 CVA mechanism: unspecified GERD (gastroesophageal reflux disease) K21.9 Hypothyroidism E03.9 PSVT (paroxysmal supraventricular tachycardia) I47.1 (1) CVA (cerebral vascular accident) CVA mechanism: unspecified Qualified Code(s): I63.9 - Cerebral infarction, unspecified
[2022-06-23] MEDS: dexAMETHasone 6 MG in SYRINGE 0 ML IV SCH ×2 (18:03→18:11)
[2022-06-23] MEDS: AMITRIPTYLINE HCL 25 MG TAB PO SCH (20:04)
[2022-06-23] MEDS: dexAMETHasone 1 MG TAB PO SCH (20:06)
[2022-06-23] MEDS: TOPIRAMATE 100 MG TAB PO SCH (20:06)
[2022-06-23] MEDS ORDERED: diphenhydrAMINE HCL 25 MG/10 ML UDC PO ONE (21:46)
[2022-06-24] MEDS: PANTOprazole 40 MG TAB PO SCH (06:08)
[2022-06-24] MEDS: LEVOTHYROXINE SODIUM 125 MCG TABLET PO SCH (06:08)
[2022-06-24] MEDS: busPIRone 15 MG TAB PO SCH (08:56)
[2022-06-24] MEDS: ATORVASTATIN 40 MG TAB PO SCH (08:56)
[2022-06-24] MEDS: APIXABAN 5 MG TABLET PO SCH ×2 (08:56→20:59)
[2022-06-24] MEDS: METOPROLOL TARTRATE 25 MG TAB PO SCH ×2 (08:57→21:03)
--- NOTE | 2022-06-24 11:07 | Hospitalist Progress Note ---
Date of Service June 24, 2022 Assessment & Plan (1) COVID-19: Plan: COVID 19 approximate day of illness - day 6 on admission associated with hypoxia increasing in oxygen requirements - Patient declined remdesivir, likely no benefit this late in her clinical cours e - Decadron 6mg IV now and then daily - Supportive care with Flutter valve and nebulizers if needed - underlying lung disease noted - DVT prophylaxis continue her Eliquis - follow electrolytes - PCT negative and rest of respiratory bioFIRE negative Patient appears to be improving on 06/22 now on 2 liters (2) IPF (idiopathic pulmonary fibrosis): Plan: Patient follows with [facility]- was [place] back [place] [facility] [place] is currently not on any antifibrotic therapy - Follows up with them in future- was noted with ESR 67, elevated ALEXEY, and double stranded DNA positive - as above Decadron (3) Chronic hypoxemic respiratory failure: Plan: Baslein 2LPM O2 at rest. 4LPM O2 on exertion She is on chronic oxygen therapy at home and at night 2-5 liters, has needed 5 liters consistently since last week. Wean O2 to aim sats > 90% (4) Left bundle branch block: Plan: Chronic no acute needs (5) CVA (cerebral vascular accident): Plan: History of in June 04 - Continue statin - Continue Apixaban when able - Continue blood pressure control (6) GERD (gastroesophageal reflux disease): Plan: Continue PPI (7) Hypothyroidism: Plan: Continue Synthroid 125mcg daily (8) PSVT (paroxysmal supraventricular tachycardia): Plan: Patient has loop recorder in place for afib concerns from cryptogenic CVA - Continue Apixaban - Continue with Metoprolol 25mg BID - Electrolytes replaced - keep K ~4.0 and Mag ~2.0 Plan VTE Prophylaxis - Eliquis Diet - regular Disposition - continue on med/surg, continued admission as long as making progress back to baseline O2 requirement, PT/OT ordered Admission and Anticipated Discharge Date Admission Date: June 20, 2022 Subjective 72 yo female reports no new symptom. Review of Systems Review of Systems: Constitutional: No fever, sweats or chills Eyes: No diplopia, no worsening or blurred vision ENT: normal hearing, no trouble swallowing Respiratory: (+) cough, sputum, dyspnea at rest or on exertion Cardiovascular: No chest pain, tightness or palpitations Abdomen: (+) diarrhea, No pain, nausea, vomiting, diarrhea or constipation Musculoskeletal: (+) right knee joint pain, No calf pain, swelling Neurologic: No weakness, numbness/tingling, or balance problems Psychiatric: No anxiety or depression Skin: No rash or itch Physical Exam Physical Exam: Lying in bed comfortably Constitutional: WD/WN, vitals as above Respiratory: normal respiratory effort; no respiratory distress Auscultation: + crackles (fine bibasal to mid zone posteriorly); no diminished lung sounds, no rales, no rhonchi and no wheezes Cardiovascular: Rate/Rhythm: regular rate and regular rhythm Heart Sounds: + murmur (LUSB, known moderate tricuspid regurg) Extremities: normal capillary refill; no calf tenderness and no pedal edema Gastrointestinal (Abdomen): normal bowel sounds, soft, nontender, no hepatosplenomegaly Musculoskeletal: no cyanosis or clubbing, extremities motor strength 5/5 Skin: no rashes, warm and dry Neurologic: moves all extremities and awake; not confused Psychiatric: A+Ox3, euthymic affect Results & Data Results & Data ([facility]) Vital Signs (Past 12 Hours) Vital Signs Temp Pulse Resp BP Pulse Ox O2 Del Method O2 Flow Rate 06/24/22 10:05 Nasal Cannula 2 06/24/22 08:23 36.6 C 53 L 12 121/75 97 Nasal Cannula 2 PG Care Time/CCT Total # of Minutes Spent Total Time Spent with Patient: Total time spent is greater than 50% in coordination of care (as documented) at patient's floor/unit and/or counseling patient: Coding Level of Care Code 63534 Subseq Hosp Care Lvl 2 Diagnoses COVID-19 U07.1 IPF (idiopathic pulmonary fibrosis) J84.112 Chronic hypoxemic respiratory failure J96.11 Left bundle branch block I44.7 CVA (cerebral vascular accident) I63.9 CVA mechanism: unspecified GERD (gastroesophageal reflux disease) K21.9 Hypothyroidism E03.9 PSVT (paroxysmal supraventricular tachycardia) I47.1 (1) CVA (cerebral vascular accident) CVA mechanism: unspecified Qualified Code(s): I63.9 - Cerebral infarction, unspecified
[2022-06-24] MEDS: dexAMETHasone 1 MG TAB PO SCH (17:33)
[2022-06-24] MEDS: AMITRIPTYLINE HCL 25 MG TAB PO SCH (20:59)
[2022-06-24] MEDS: TOPIRAMATE 100 MG TAB PO SCH (21:00)
[2022-06-25] MEDS: PANTOprazole 40 MG TAB PO SCH (06:06)
[2022-06-25] MEDS: LEVOTHYROXINE SODIUM 125 MCG TABLET PO SCH (06:06)
[2022-06-25] MEDS: METOPROLOL TARTRATE 25 MG TAB PO SCH ×2 (09:12→20:26)
[2022-06-25] MEDS: ATORVASTATIN 40 MG TAB PO SCH (09:12)
[2022-06-25] MEDS: busPIRone 15 MG TAB PO SCH (09:13)
[2022-06-25] MEDS: APIXABAN 5 MG TABLET PO SCH ×2 (09:13→20:25)
[2022-06-25] MEDS: dexAMETHasone 1 MG TAB PO SCH (17:21)
[2022-06-25] MEDS: AMITRIPTYLINE HCL 25 MG TAB PO SCH (20:25)
[2022-06-25] MEDS: TOPIRAMATE 100 MG TAB PO SCH (20:26)
--- NOTE | 2022-06-25 22:20 | Hospitalist Progress Note ---
Date of Service June 25, 2022 Assessment & Plan (1) COVID-19: Plan: COVID 19 approximate day of illness - day 6 on admission associated with hypoxia increasing in oxygen requirements - Patient declined remdesivir, likely no benefit this late in her clinical cours e - Decadron 6mg IV now and then daily - Supportive care with Flutter valve and nebulizers if needed - underlying lung disease noted - DVT prophylaxis continue her Eliquis - follow electrolytes - PCT negative and rest of respiratory bioFIRE negative Patient appears to be improving on 06/22 Patient has no new symptoms. now on 2 liters (2) IPF (idiopathic pulmonary fibrosis): Plan: Patient follows with [facility]- was referred back [place] [facility] [place] she is currently not on any antifibrotic therapy - Follows up with them in future- was noted with ESR 67, elevated ALEXEY, and double stranded DNA positive - as above Decadron (3) Chronic hypoxemic respiratory failure: Plan: Bas[place] 2LPM O2 at rest. 4LPM O2 on exertion She is on chronic oxygen therapy at home and at night 2-5 liters, has needed 5 liters consistently since last week. Wean O2 to aim sats > 90% (4) Left bundle branch block: Plan: Chronic no acute needs (5) CVA (cerebral vascular accident): Plan: History of in June 04 - Continue statin - Continue Apixaban when able - Continue blood pressure control (6) GERD (gastroesophageal reflux disease): Plan: Continue PPI (7) Hypothyroidism: Plan: Continue Synthroid 125mcg daily (8) PSVT (paroxysmal supraventricular tachycardia): Plan: Patient has loop recorder in place for afib concerns from cryptogenic CVA - Continue Apixaban - Continue with Metoprolol 25mg BID - Electrolytes replaced - keep K ~4.0 and Mag ~2.0 Plan VTE Prophylaxis - Eliquis Diet - regular Disposition - continue on med/surg, continued admission as long as making progress back to baseline O2 requirement, PT/OT ordered Admission and Anticipated Discharge Date Admission Date: June 20, 2022 Subjective 72 yo female reports feeling well. Review of Systems Review of Systems: All systems reviewed & are unremarkable except as noted in HPI & below Physical Exam Physical Exam: Lying in bed comfortably Constitutional: WD/WN, vitals as above Respiratory: normal respiratory effort; no respiratory distress Auscultation: + crackles (fine bibasal to mid zone posteriorly); no diminished lung sounds, no rales, no rhonchi and no wheezes Cardiovascular: Rate/Rhythm: regular rate and regular rhythm Heart Sounds: + murmur (LUSB, known moderate tricuspid regurg) Extremities: normal capillary refill; no calf tenderness and no pedal edema Gastrointestinal (Abdomen): normal bowel sounds, soft, nontender, no hepatosplenomegaly Musculoskeletal: no cyanosis or clubbing, extremities motor strength 5/5 Skin: no rashes, warm and dry Neurologic: moves all extremities and awake; not confused Psychiatric: A+Ox3, euthymic affect Results & Data Results & Data ([facility]) Vital Signs (Past 12 Hours) Vital Signs Temp Pulse Resp BP Pulse Ox O2 Del Method O2 Flow Rate 06/25/22 20:22 36.9 C 69 16 113/76 97 Room Air 06/25/22 15:30 36.7 C 72 14 127/78 95 Nasal Cannula 2 PG Care Time/CCT Total # of Minutes Spent Total Time Spent with Patient: Total time spent is greater than 50% in coordination of care (as documented) at patient's floor/unit and/or counseling patient: Coding Level of Care Code 11933 Subseq Hosp Care Lvl 1 Diagnoses COVID-19 U07.1 IPF (idiopathic pulmonary fibrosis) J84.112 Chronic hypoxemic respiratory failure J96.11 Left bundle branch block I44.7 CVA (cerebral vascular accident) I63.9 CVA mechanism: unspecified GERD (gastroesophageal reflux disease) K21.9 Hypothyroidism E03.9 PSVT (paroxysmal supraventricular tachycardia) I47.1 (1) CVA (cerebral vascular accident) CVA mechanism: unspecified Qualified Code(s): I63.9 - Cerebral infarction, unspecified
[2022-06-26] MEDS: LEVOTHYROXINE SODIUM 125 MCG TABLET PO SCH (06:08)
[2022-06-26] MEDS: PANTOprazole 40 MG TAB PO SCH (06:09)
[2022-06-26] MEDS: busPIRone 15 MG TAB PO SCH (08:21)
[2022-06-26] MEDS: APIXABAN 5 MG TABLET PO SCH ×2 (08:21→20:25)
[2022-06-26] MEDS: METOPROLOL TARTRATE 25 MG TAB PO SCH ×2 (08:21→20:28)
[2022-06-26] MEDS: ATORVASTATIN 40 MG TAB PO SCH (08:21)
[2022-06-26 12:20] LABS: Hematocrit (blood only) 39.6 % (34.1-44.9); Hemoglobin 12.7 g/dl (12.0-16.0); Mean Corpuscular Hemoglobin 28.5 pg (25.0-34.0); Mean Corpuscular Hgb Conc 32.1 g/dL (32.0-36.0); Mean Corpuscular Volume 88.8 fL (80.0-100.0); Platelet Count 289 K/uL (130-400); RDW Coefficient of Variation 13.4 % (11.5-14.5); RDW Standard Deviation 43.3 fL (36.4-46.3); Red Blood Count 4.46 M/uL (3.93-5.22); White Blood Count 14.43 K/ul (4.8-10.8)
[2022-06-26 12:38] LABS: BUN Creatinine Ratio 28.4 (10-20); Creatinine Clr Calc Pharmacy 50.7 ml/min; Est GFR (African American) 63.2 ml/min; Est GFR (Non-African American) 54.5 ml/min; Potassium 3.6 mmol/L (3.5-5.1)
[2022-06-26] MEDS: dexAMETHasone 1 MG TAB PO SCH (17:37)
[2022-06-26] MEDS ORDERED: LOPERAMIDE HCL 2 MG CAP PO STA (19:30)
[2022-06-26] MEDS ORDERED: LOPERAMIDE HCL 2 MG CAP PO PRN (19:30)
[2022-06-26] MEDS: AMITRIPTYLINE HCL 25 MG TAB PO SCH (20:25)
[2022-06-26] MEDS: TOPIRAMATE 100 MG TAB PO SCH (20:25)
--- NOTE | 2022-06-26 22:09 | Hospitalist Progress Note ---
Date of Service June 26, 2022 Assessment & Plan (1) COVID-19: Plan: COVID 19 approximate day of illness - day 6 on admission associated with hypoxia increasing in oxygen requirements - Patient declined remdesivir, likely no benefit this late in her clinical cours e - Decadron 6mg IV now and then daily - Supportive care with Flutter valve and nebulizers if needed - underlying lung disease noted - DVT prophylaxis continue her Eliquis - follow electrolytes - PCT negative and rest of respiratory bioFIRE negative Patient appears to be improving on 06/22 Patient has no new symptoms. now on 2 liters CDIFF negative. ordered loperamide. (2) IPF (idiopathic pulmonary fibrosis): Plan: Patient follows with [facility] [place] [facility]- was [place] [facility] [place] is currently not on any antifibrotic therapy - Follows up with them in future- was noted with ESR 67, elevated ALEXEY, and double stranded DNA positive - as above Decadron (3) Chronic hypoxemic respiratory failure: Plan: Bas[place] 2LPM O2 at rest. 4LPM O2 on exertion She is on chronic oxygen therapy at home and at night 2-5 liters, has needed 5 liters consistently since last week. Wean O2 to aim sats > 90% (4) Left bundle branch block: Plan: Chronic no acute needs (5) CVA (cerebral vascular accident): Plan: History of in June 04 - Continue statin - Continue Apixaban when able - Continue blood pressure control (6) GERD (gastroesophageal reflux disease): Plan: Continue PPI (7) Hypothyroidism: Plan: Continue Synthroid 125mcg daily (8) PSVT (paroxysmal supraventricular tachycardia): Plan: Patient has loop recorder in place for afib concerns from cryptogenic CVA - Continue Apixaban - Continue with Metoprolol 25mg BID - Electrolytes replaced - keep K ~4.0 and Mag ~2.0 Plan VTE Prophylaxis - Eliquis Diet - regular Disposition - continue on med/surg, continued admission as long as making progress back to baseline O2 requirement, PT/OT ordered Admission and Anticipated Discharge Date Admission Date: June 20, 2022 Subjective 72 yo female reports loose stools. She has IBS. Review of Systems Review of Systems: All systems reviewed & are unremarkable except as noted in HPI & below Physical Exam Physical Exam: Lying in bed comfortably Constitutional: WD/WN, vitals as above Respiratory: normal respiratory effort; no respiratory distress Auscultation: + crackles (fine bibasal to mid zone posteriorly); no diminished lung sounds, no rales, no rhonchi and no wheezes Cardiovascular: Rate/Rhythm: regular rate and regular rhythm Heart Sounds: + murmur (LUSB, known moderate tricuspid regurg) Extremities: normal capillary refill; no calf tenderness and no pedal edema Gastrointestinal (Abdomen): normal bowel sounds, soft, nontender, no hepatosplenomegaly Musculoskeletal: no cyanosis or clubbing, extremities motor strength 5/5 Skin: no rashes, warm and dry Neurologic: moves all extremities and awake; not confused Psychiatric: A+Ox3, euthymic affect Results & Data Results & Data ([facility]) Vital Signs (Past 12 Hours) Vital Signs Temp Pulse Resp BP Pulse Ox O2 Del Method O2 Flow Rate 06/26/22 20:25 36.8 C 67 16 129/85 99 Nasal Cannula 2 06/26/22 16:01 36.8 C 69 16 133/80 99 Nasal Cannula 2 PG Care Time/CCT Total # of Minutes Spent Total Time Spent with Patient: Total time spent is greater than 50% in coordination of care (as documented) at patient's floor/unit and/or counseling patient: Coding Level of Care Code 54724 Subseq Hosp Care Lvl 2 Diagnoses COVID-19 U07.1 IPF (idiopathic pulmonary fibrosis) J84.112 Chronic hypoxemic respiratory failure J96.11 Left bundle branch block I44.7 CVA (cerebral vascular accident) I63.9 CVA mechanism: unspecified GERD (gastroesophageal reflux disease) K21.9 Hypothyroidism E03.9 PSVT (paroxysmal supraventricular tachycardia) I47.1 Time Spent (min) 25 (1) CVA (cerebral vascular accident) CVA mechanism: unspecified Qualified Code(s): I63.9 - Cerebral infarction, unspecified
[2022-06-27] MEDS: PANTOprazole 40 MG TAB PO SCH (05:57)
[2022-06-27] MEDS: LEVOTHYROXINE SODIUM 125 MCG TABLET PO SCH (05:57)
[2022-06-27 08:20] LABS: Hematocrit (blood only) 37.8 % (34.1-44.9); Hemoglobin 12.4 g/dl (12.0-16.0); Mean Corpuscular Hemoglobin 28.2 pg (25.0-34.0); Mean Corpuscular Hgb Conc 32.8 g/dL (32.0-36.0); Mean Corpuscular Volume 86.1 fL (80.0-100.0); Mean Platelet Volume 11.2 fL (9.4-12.3); Platelet Count 261 K/uL (130-400); RDW Coefficient of Variation 13.5 % (11.5-14.5); RDW Standard Deviation 42.3 fL (36.4-46.3); Red Blood Count 4.39 M/uL (3.93-5.22)
[2022-06-27 08:40] LABS: BUN Creatinine Ratio 35.7 (10-20); Calcium 8.8 mg/dl (8.5-10.1); Creatinine Clr Calc Pharmacy 61.5 ml/min; Est GFR (African American) 79.9 ml/min; Potassium 3.8 mmol/L (3.5-5.1)
[2022-06-27] MEDS: METOPROLOL TARTRATE 25 MG TAB PO SCH ×2 (08:45→20:02)
[2022-06-27] MEDS: busPIRone 15 MG TAB PO SCH (08:45)
[2022-06-27] MEDS: APIXABAN 5 MG TABLET PO SCH ×2 (08:45→20:02)
[2022-06-27] MEDS: ATORVASTATIN 40 MG TAB PO SCH (08:45)
[2022-06-27] MEDS: dexAMETHasone 1 MG TAB PO SCH (17:29)
[2022-06-27] MEDS: AMITRIPTYLINE HCL 25 MG TAB PO SCH (20:01)
[2022-06-27] MEDS: TOPIRAMATE 100 MG TAB PO SCH (20:02)
--- NOTE | 2022-06-27 23:05 | Hospitalist Progress Note ---
Date of Service June 27, 2022 Assessment & Plan (1) COVID-19: Plan: COVID 19 approximate day of illness - day 6 on admission associated with hypoxia increasing in oxygen requirements - Patient declined remdesivir, likely no benefit this late in her clinical cours e - Decadron 6mg IV now and then daily - Supportive care with Flutter valve and nebulizers if needed - underlying lung disease noted - DVT prophylaxis continue her Eliquis - follow electrolytes - PCT negative and rest of respiratory bioFIRE negative Patient appears to be improving on 06/22 Patient has no new symptoms. now on 2 liters CDIFF negative. ordered loperamide on 06/27 symptoms improved. (2) IPF (idiopathic pulmonary fibrosis): Plan: Patient follows with [facility] pulmonary- was [place] back [place] [facility] [place] is currently not on any antifibrotic therapy - Follows up with them in future- was noted with ESR 67, elevated ALEXEY, and double stranded DNA positive - as above Decadron (3) Chronic hypoxemic respiratory failure: Plan: Bas[place] 2LPM O2 at rest. 4LPM O2 on exertion She is on chronic oxygen therapy at home and at night 2-5 liters, has needed 5 liters consistently since last week. Wean O2 to aim sats > 90% (4) Left bundle branch block: Plan: Chronic no acute needs (5) CVA (cerebral vascular accident): Plan: History of in June 04 - Continue statin - Continue Apixaban when able - Continue blood pressure control (6) GERD (gastroesophageal reflux disease): Plan: Continue PPI (7) Hypothyroidism: Plan: Continue Synthroid 125mcg daily (8) PSVT (paroxysmal supraventricular tachycardia): Plan: Patient has loop recorder in place for afib concerns from cryptogenic CVA - Continue Apixaban - Continue with Metoprolol 25mg BID - Electrolytes replaced - keep K ~4.0 and Mag ~2.0 Plan VTE Prophylaxis - Eliquis Diet - regular Disposition - continue on med/surg, continued admission as long as making progress back to baseline O2 requirement, PT/OT ordered Admission and Anticipated Discharge Date Admission Date: June 20, 2022 Subjective Patient reports her diarrhea has improved. d/w Review of Systems Review of Systems: All systems reviewed & are unremarkable except as noted in HPI & below Physical Exam Physical Exam: Lying in bed comfortably Constitutional: WD/WN, vitals as above Respiratory: normal respiratory effort; no respiratory distress Auscultation: + crackles (fine bibasal to mid zone posteriorly); no diminished lung sounds, no rales, no rhonchi and no wheezes Cardiovascular: Rate/Rhythm: regular rate and regular rhythm Heart Sounds: + murmur (LUSB, known moderate tricuspid regurg) Extremities: normal capillary refill; no calf tenderness and no pedal edema Gastrointestinal (Abdomen): normal bowel sounds, soft, nontender, no hepatosplenomegaly Musculoskeletal: no cyanosis or clubbing, extremities motor strength 5/5 Skin: no rashes, warm and dry Neurologic: moves all extremities and awake; not confused Psychiatric: A+Ox3, euthymic affect Results & Data Results & Data ([facility]) Vital Signs (Past 12 Hours) Vital Signs Temp Pulse Resp BP Pulse Ox O2 Del Method O2 Flow Rate 06/27/22 19:59 36.8 C 63 14 144/72 H 99 Nasal Cannula 2 PG Care Time/CCT Total # of Minutes Spent Total Time Spent with Patient: Total time spent is greater than 50% in coordination of care (as documented) at patient's floor/unit and/or counseling patient: Coding Level of Care Code 62326 Subseq Hosp Care Lvl 2 Diagnoses COVID-19 U07.1 IPF (idiopathic pulmonary fibrosis) J84.112 Chronic hypoxemic respiratory failure J96.11 Left bundle branch block I44.7 CVA (cerebral vascular accident) I63.9 CVA mechanism: unspecified GERD (gastroesophageal reflux disease) K21.9 Hypothyroidism E03.9 PSVT (paroxysmal supraventricular tachycardia) I47.1 Time Spent (min) 25 (1) CVA (cerebral vascular accident) CVA mechanism: unspecified Qualified Code(s): I63.9 - Cerebral infarction, unspecified
[2022-06-28] MEDS: LEVOTHYROXINE SODIUM 125 MCG TABLET PO SCH (05:54)
[2022-06-28] MEDS: PANTOprazole 40 MG TAB PO SCH (05:55)
[2022-06-28] MEDS: ATORVASTATIN 40 MG TAB PO SCH (08:12)
[2022-06-28] MEDS: APIXABAN 5 MG TABLET PO SCH ×2 (08:13→20:37)
[2022-06-28] MEDS: busPIRone 15 MG TAB PO SCH (08:13)
[2022-06-28] MEDS: METOPROLOL TARTRATE 25 MG TAB PO SCH ×2 (08:14→20:37)
[2022-06-28 10:24] LABS: Hematocrit (blood only) 42.1 % (34.1-44.9); Hemoglobin 13.5 g/dl (12.0-16.0); Mean Corpuscular Hemoglobin 28.2 pg (25.0-34.0); Mean Corpuscular Hgb Conc 32.1 g/dL (32.0-36.0); Mean Corpuscular Volume 87.9 fL (80.0-100.0); Mean Platelet Volume 10.7 fL (9.4-12.3); Platelet Count 275 K/uL (130-400); RDW Coefficient of Variation 13.7 % (11.5-14.5); RDW Standard Deviation 43.7 fL (36.4-46.3); Red Blood Count 4.79 M/uL (3.93-5.22); White Blood Count 11.34 K/ul (4.8-10.8)
[2022-06-28 10:49] LABS: Anion Gap 7 (3-11); BUN Creatinine Ratio 28.3 (10-20); Blood Urea Nitrogen 28 mg/dl (6-23); C Reactive Protein < 0.50 mg/dl (0-0.5); Carbon Dioxide 25 mmol/L (21-32); Chloride 108 mmol/L (98-107); Creatinine Clr Calc Pharmacy 52.2 ml/min; Est GFR (African American) 65.5 ml/min; Est GFR (Non-African American) 56.5 ml/min; Glucose 137 mg/dl (70-99(Fasting)); Magnesium 1.9 mg/dl (1.7-2.4); Phosphorus 3.6 mg/dl (2.5-4.9); Potassium 3.8 mmol/L (3.5-5.1); Sodium 140 mmol/L (136-145)
[2022-06-28] MEDS: dexAMETHasone 1 MG TAB PO SCH (17:49)
[2022-06-28] MEDS: AMITRIPTYLINE HCL 25 MG TAB PO SCH (20:37)
[2022-06-28] MEDS: TOPIRAMATE 100 MG TAB PO SCH (20:38)
--- NOTE | 2022-06-28 21:08 | Hospitalist Progress Note ---
Date of Service June 28, 2022 Assessment & Plan Admission and Anticipated Discharge Date Admission Date: June 20, 2022 Results & Data Results & Data ([facility]) Vital Signs (Past 12 Hours) Vital Signs Temp Pulse Pulse Pulse Pulse Pulse Resp 06/28/22 20:22 37 C 73 14 06/28/22 17:40 36.5 C 72 17 06/28/22 18:47 36.5 C 74 16 06/28/22 16:39 36.8 C 72 17 06/28/22 13:26 88 72 88 68 Resp Resp Resp Resp BP Pulse Ox Pulse Ox 06/28/22 20:22 126/69 95 06/28/22 17:40 108/70 98 06/28/22 18:47 110/73 99 06/28/22 16:39 125/79 95 06/28/22 13:26 26 H 20 24 16 87 L Pulse Ox Pulse Ox Pulse Ox O2 Del Method O2 Flow Rate O2 Flow Rate O2 Flow Rate 06/28/22 20:22 Room Air 06/28/22 17:40 Nasal Cannula 1 06/28/22 18:47 Nasal Cannula 2 06/28/22 16:39 Room Air 06/28/22 13:26 90 86 L 91 2 3 PG Care Time/CCT Total # of Minutes Spent Total Time Spent with Patient: Total time spent is greater than 50% in coordination of care (as documented) at patient's floor/unit and/or counseling patient: Coding
--- NOTE | 2022-07-04 23:08 | Discharge Summary ---
Date of Service June 28, 2022 Admission HPI Per Admitting Provider 71 YOF with past medical history: Left Thalmic CVA, PSVT (with loop recorder), LBBB, Asthma, ILD/IPF, Asthma, COVID 19 (01/02) Right Total Knee Replacement, Anxiety, Depression, DMII, GERD, Hypothyroidism, IBS, Spinal Stenosis, Afib (on apixaban). Patient comes to the EMD today for complaints of fatigue, increased dyspnea, hypoxia, decrease oral intake and diarrhea. Patient states this started on and noted that she was just originally fatigued and this progressed to noting increase in dyspnea and checking her oxygen at home she reports being down in the 70s with minimal activity. Over the weekend she noted diarrhea, liquid yellow which is slowly resolving, she was without her caregivers over the weekend and she states that she had decrease in food intake secondary to fatigue and loss of appetite. In the EMD the patient had routine labs performed, CXR, ECG, and was noted to be COVID positive. She will be admitted for increased oxygen needs, started on Decadron, follow nutiritional status, dextrose checks with steroids goal <180, PT/OT. [facility] and she does not want to go back to rehab. She is DNR/DNI COVID test on admission is: POSITIVE Principal Diagnosis COVID 19 Discharge Exam Lying in bed comfortably Constitutional WD/WN, vitals as above Respiratory normal respiratory effort; no respiratory distress Auscultation: no diminished lung sounds, no rales, no rhonchi and no wheezes Cardiovascular Rate/Rhythm: regular rate and regular rhythm Heart Sounds: + murmur (LUSB, known moderate tricuspid regurg) Extremities: normal capillary refill; no calf tenderness and no pedal edema Gastrointestinal (Abdomen) normal bowel sounds, soft, nontender, no hepatosplenomegaly Musculoskeletal no cyanosis or clubbing, extremities motor strength 5/5 Skin no rashes, warm and dry Neurologic moves all extremities and awake; not confused Psychiatric A+Ox3, euthymic affect Discharge Data Allergies Allergy/AdvReac Type Severity Reaction Status Date / Time latex Allergy Intermediate Rash, hand Verified 03/27/22 09:06 swelling Sulfa (Sulfonamide Allergy Intermediate Rash Verified 03/27/22 09:06 Antibiotics) Penicillins Allergy Unknown Unknown Verified 03/27/22 09:06 reaction (as teenager) morphine AdvReac Intermediate Anxiety Verified 03/27/22 09:06 Consultations 06/20/22 16:34 ED Decision to Admit Stat Hospital Course (1) COVID-19: COVID 19 approximate day of illness - day 6 on admission associated with hypoxia increasing in oxygen requirements - Patient declined remdesivir, likely no benefit this late in her clinical course - Decadron 6mg IV now and then daily - Supportive care with Flutter valve and nebulizers if needed - underlying lung disease noted - DVT prophylaxis continue her Eliquis - follow electrolytes - PCT negative and rest of respiratory bioFIRE negative Patient appears to be improving on 06/22 Patient has no new symptoms. now on 2 liters CDIFF negative. ordered loperamide on 06/27 symptoms improved. Patient's respiratory status improved during hospital stay. OK for discharge. (2) IPF (idiopathic pulmonary fibrosis): Patient follows with [facility] pulmonary- was referred back to ILD clinic at [facility] - she is currently not on any antifibrotic therapy - Follows up with them in future- was noted with ESR 67, elevated ALEXEY, and double stranded DNA positive - as above Decadron (3) Chronic hypoxemic respiratory failure: [place] 2LPM O2 at rest. 4LPM O2 on exertion She is on chronic oxygen therapy at home and at night 2-5 liters, has needed 5 liters consistently since last week. Wean O2 to aim sats > 90% (4) Left bundle branch block: Chronic no acute needs (5) CVA (cerebral vascular accident): History of in June 04 - Continue statin - Continue Apixaban when able - Continue blood pressure control (6) GERD (gastroesophageal reflux disease): Continue PPI (7) Hypothyroidism: Continue Synthroid 125mcg daily (8) PSVT (paroxysmal supraventricular tachycardia): Patient has loop recorder in place for afib concerns from cryptogenic CVA - Continue Apixaban - Continue with Metoprolol 25mg BID - Electrolytes replaced - keep K ~4.0 and Mag ~2.0 Total Time Total Time Spent Total Time Spent (In Minutes): 35 Discharge Plan Discharge Items Patient Disposition: Home - Self-Care Reason For Visit: COVID HYPOXIA Discharge Diagnosis: COVID hypoxia Activity: Resume your previous activity Non-emergency contact: Primary Care Provider Call non-emergency contact if: you have any medication questions Follow-up/Referrals: Ted Singh MD [Primary Care Provider] - 07/03/22 2:10 pm (APPT WITH DR MCCULLOUGH) Diet: Regular Addtl Attending Provider Instructions: You have been hospitalized for an acute medical problem. During your stay at [facility], we have made an effort to correct the problem that brought you to the hospital while keeping you as comfortable as possible. Medications were used to bring your condition under control and your discharge instructions will include directions for any medications you should take after leaving the hospital. Please make sure you see your Primary Care Provider as part of your follow up plan. Pending Studies at Discharge: No Stand-Alone Forms: My [facility], Smoking Cessation Medications and DC Order Prescriptions: Continued (DME) OneTouch Ultra Test Strip See Rx Instructions .Route Qty: 100 3RF Rx Instructions: Test once daily (DME) blood-glucose meter [OneTouch Ultra2 Meter] Kit See Rx Instructions .Route Qty: 1 0RF Rx Instructions: As directed (DME) lancets [OneTouch Delica Lancets] 33 gauge misc See Rx Instructions .Route Qty: 100 3RF Rx Instructions: Test once daily pantoprazole 40 mg tablet,delayed release (DR/EC) 40 mg PO QAM Qty: 90 3RF Eliquis 5 mg tablet 5 mg PO BID Qty: 180 3RF metoprolol tartrate 25 mg tablet 25 mg PO BID 30 Days Qty: 60 11RF amitriptyline 25 mg tablet 25 mg PO HS Qty: 90 3RF atorvastatin 40 mg tablet 40 mg PO QAM 30 Days Qty: 90 3RF (DME) Portable Oxygen Misc See Rx Instructions .Route Qty: 1 0RF Rx Instructions: POC -evaluate for conserving device to maintain O2 Sat above 88% levothyroxine 125 mcg tablet 125 mcg PO QAM Qty: 90 1RF Rx Instructions: Take 1st thing in the morning on an empty stomach with a glass of water 30 min prior to any other oral intake. tramadol 50 mg tablet 50 mg PO Q8H PRN (Reason: pain) Qty: 30 0RF (DME) Wheelchair (Manual) Device See Rx Instructions .MEDSUPPLY Qty: 1 0RF Rx Instructions: As directed (DME) Portable Oxygen Misc See Rx Instructions .Route Qty: 1 0RF Rx Instructions: 2L at rest and 5L with exertion (oxygen concentrator) topiramate [Topamax] 100 mg tablet 100 mg PO QPM Label Comments: takes in afternoon= "I havent taken that in a long time." guaifenesin 100 mg/5 mL Liquid 200 mg PO Q4H PRN (Reason: Cough) oxycodone-acetaminophen 5-325 mg tablet 1 tab PO Q6H PRN (Reason: pain) Qty: 40 0RF buspirone 15 mg tablet 30 mg PO DAILY No Action tramadol 50 mg tablet 50 mg PO Q6H PRN (Reason: pain) Qty: 20 0RF Discharge Orders: Discharge Order (Routine); Ordered 06/28/22 Ordered By: Dioni Rojo/Other Patient Handouts: Shortness Breath [employer], ED Shortness of Breath (Dyspnea) Admission Data Admit Date/Time: 06/20/22 17:07 Attending Provider: Dioni Ortiz Admit Provider: López Carranza Primary Care Provider: Ted Singh Other Providers: López Carranza Other Interventions: Discharge Summary Assessment (RN) Last Done: 06/28/22 13:27 Coding Level of Care Code D/C DAY MANAGEMENT >30 MINS Diagnoses COVID-19 U07.1 IPF (idiopathic pulmonary fibrosis) J84.112 Chronic hypoxemic respiratory failure J96.11 Left bundle branch block I44.7 CVA (cerebral vascular accident) I63.9 CVA mechanism: unspecified GERD (gastroesophageal reflux disease) K21.9 Hypothyroidism E03.9 PSVT (paroxysmal supraventricular tachycardia) I47.1
== END 2022-06-28 21:45 | disposition home or self-care (01) | DRG 178 ==
LOC: ED 13:34 → 3E 17:07 → SUATTDRO 17:07 → 3E 18:38

== ENCOUNTER 2023-03-02 09:39 | Observation (INO) ==
--- NOTE | 2023-03-02 09:58 | Emergency Department Note ---
Impression & Plan SOB (shortness of breath), Acute exacerbation of idiopathic pulmonary fibrosis, Elevated troponin, Fluid overload ED Provider Note Provider: Adalberto Bradley MD DATE OF SERVICE: 03/02/2023 CHIEF COMPLAINT: Shortness of breath, cough HISTORY OF PRESENT ILLNESS: Patient is a 72-year-old female past medical history significant for interstitial lung disease on chronic oxygen at home, pulmonary h ypertension, CVA, GERD, type 2 diabetes, and hypothyroidism presenting here today via ambulance from her home. Patient states that she states her self mostly. Recently saw her senior investment manager about 10 days ago. She reports that about a week ago however she began to feel ill with cough and cold symptoms. This is worsened some. Got a coughing fit today to the point that she threw up but denies any nausea or abdominal pain currently. States she gets very winded with any kind of walking her oxygen level has been dipping. Did increase her oxygen to 5 L now from previously. States she felt lightheaded but did not syncopized and did not fall today. Does have home caregivers. Reports she has had submitted swelling of the lower legs for some time and is on chronic steroid/prednisone. No travel reported. Does report some slight dizziness and maybe some slight chest discomfort today. PAST MEDICAL HISTORY: As noted above MEDICATIONS: Reviewed home medications SOCIAL HISTORY: Distant former smoker. Lives in apartment. PHYSICAL EXAM: GENERAL: alert and oriented in no acute distress on stretcher Head: normocephalic and atraumatic EYES: No injection, discharge or icterus. NECK: Trachea midline. Supple. ENT: Mucous membranes pink and moist. LUNGS: Airway patent. No retractions. Breath sounds somewhat coarse HEART: Regular rate and rhythm. No chest wall tenderness ABDOMEN: Soft and non-tender, without guarding or rebound. SKIN: Acyanotic, warm, dry, without rashes EXTREMITIES: Without deformity with 1-2+ bilateral lower extremity edema without weeping or erythema. NEUROLOGICAL: No focal deficits. No aphasia. No facial droop or slurred speech. Ambulatory. EK bpm sinus rhythm with PVC noted. Left bundle branch block without acute ST segment elevation meeting Sgarbossa criteria. QTc 452. Compared to previous from June 20, 2022, appears similar. CONTINUOUS CARDIAC MONITORING: was ordered and showed a heart rate of bpm in Patient's laboratory studies and imaging reviewed. Differential includes Reactive airway disease, pneumonia, pneumothorax, COPD, CHF, infections, cardiac ischemia, pulmonary embolism, musculoskeletal, gastrointestinal, as well as other pathologies. IMPRESSION/MEDICAL DECISION MAKING: Patient without travel with some mild to moderate bilateral lower extremity edema on chronic prednisone for ILD recently saw pulmonary however has been experiencing URI symptoms for the past week. Recently increased her oxygen level to 5 L. Has been on sildenafil for the past week. Benign abdomen and doubt acute intra-abdominal pathology. Believe likely coughing fit because bit of vomiting earlier. Does on pointed questioning reported a little bit of chest discomfort and some slight dizziness. EKG obtained with basic blood work, troponin, VBG, lactate, blood cultures, and a chest x-ray. EKG is reassuring and not having any severe active pain and lower suspicion for acute ACS/STEMI. Questionable or infectious etiology given her cough and URI symptoms by report. Probably poor reserve given her underlying lung disease. Without anemia with a mild leukocytosis somewhat increased from recent lab values. pH within normal limits. No severe electrolyte abnormality noted. BNP mildly elevated. No evidence of hepatitis. Chest x-ray per radiology without evidence of any opacities concerning for pneumonia or pneumothorax. Chronic findings of interstitial lung disease noted by them. Chemistries without severe abnormalities although noting have some mild BNP elevation. High sensitive troponin does return elevated at 61 now which is a new finding compared to the previous from last fall. Discussed with pulmonary medicine and will diurese slightly with Lasix and give basic antibiotic coverage. Discussed with the patient and discussed admission. Patient states aspirin disagrees with her stomach. Had a recent right and left heart cath. Will defer any additional anticoagulation or antiplatelet agents to the inpatient team. Hospitalist team contacted. DIAGNOSIS: Shortness of breath, chronic respiratory failure from interstitial lung disease, elevated troponin DISPOSITION: Hospitalist will evaluate Patient was agreeable with this plan. Past Med/Surg History Medical History (Updated 03/02/23 @ 15:13 by Adalberto Bradley M.D.) Acute dyspnea Acute on chronic respiratory failure with hypoxemia Anxiety and depression Arrhythmia ? hx of a. fib- on Eliquis per cardiology Bipolar disorder Cerebrovascular accident (CVA) of left thalamus 06/11/2021 (post-op Right TKA) > POD#1 ischemic left thalamic stroke CVA > 9 months from DOS Chronic cough Chronic hypoxemic respiratory failure Chronic low back pain Diffuse myofascial pain syndrome GERD (gastroesophageal reflux disease) History of blood transfusion Post-op 2017 History of COVID-19 12/2020 > fully recovered Hyperglycemia Hx mild hyperglycemia under surveillance by PCP. Most recent A1C 5.6% (06/12/21) Hypothyroidism IBS (irritable bowel syndrome) Intermittent flares - takes Amitriptyline and Protonix for GI pain control Interstitial lung disease IPF (idiopathic pulmonary fibrosis) Left bundle branch block Follows with [facility] cardiology On home oxygen therapy 2-3L at rest/5L with activity Osteopenia Pulmonary edema Pulmonary hypertension Moderately elevated estimated RVSP (RVSP 40-50mmhg) per 01/19/22 echo Secondary pulmonary hypertension Secondary pulmonary hypertension Shortness of breath Spinal stenosis Weight gain Surgical History History of anesthesia reaction "Slow to wake" x1 episode after 3 hour surgery in 2017- she states she became violent and upset, hallucinated while waking up. Began to calm down once she heard her daughter's voice. History of arthroscopy R/L knee History of cholecystectomy History of colonoscopy History of hernia surgery History of hysterectomy History of loop recorder History of surgery Right Quadriceps Repair (06/14/21): LMA#4 at [facility]. No issues noted per post-op anesthesia progress note. History of total knee replacement Right TKA (06/10/21): SAB at L4-5 (x1 attempt) + PNB at [facility] Status post bronchoscopy With BAL 08/01/[address] Romero at [facility] Status post gastric banding surgery + removal Family History Family/Other No problems noted. Mother Colon cancer Dementia Father , at age 79 from mesothelioma. Mesothelioma Sister No problems noted. Sister No problems noted. Son No problems noted. Daughter No problems noted. Other Family history of diabetes mellitus in father Denies family history of Ovarian cancer Prostate cancer Myocardial infarction Breast cancer Social History Smoking Status: Never smoker Tobacco Type: Cigarettes packs per day: 1; Second Hand Exposure: No; Do You Dip or Chew Tobacco: No; Hx Alcohol Use: Yes Alcohol type: wine Hx Substance Use: No Preferred Language: Vietnamese Communication Ability: Effective Visual Impairment: No Limitations Claims Investigator Required: No Beliefs That Will Affect Care: None marital status: Single Current Living Situation: Alone Current Living Situation Comment: IN 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 current occupational status: retired Feels Safe at Home: Yes Childhood Exposure to Second-Hand Smoke: Yes Dental Care, Regularly: Yes Physical Activity Frequency: Daily Seatbelt Use: always Sunscreen Use: No Assistive Devices: Cane and Walker Allergies Allergies Allergy/AdvReac Type Severity Reaction Status Date / Time latex Allergy Intermediate Rash, hand Verified 03/02/23 11:40 swelling Sulfa (Sulfonamide Allergy Intermediate Rash Verified 03/02/23 11:40 Antibiotics) Penicillins Allergy Unknown Unknown Verified 03/02/23 11:40 reaction (as teenager) morphine AdvReac Intermediate Anxiety Verified 03/02/23 11:40 Home Meds Home Medications Medication Instructions Recorded Confirmed ibuprofen 200 mg capsule 200 mg PO Q6H PRN Pain 09/29/22 03/02/23 topiramate 100 mg tablet (Topamax) 100 mg PO BID 09/29/22 03/02/23 lamotrigine 100 mg tablet 100 mg PO DAILY 11/16/22 03/02/23 (Lamictal) buspirone 10 mg tablet 20 mg PO DAILY 03/02/23 03/02/23 levothyroxine 137 mcg tablet 137 mcg PO QAM 03/02/23 03/02/23 Previous Rx's Medication Instructions Recorded amitriptyline 25 mg tablet 25 mg PO HS #90 tabs 09/26/21 Portable Oxygen #1 ea 01/25/22 Portable Oxygen #1 ea 02/17/22 prednisone 10 mg tablet 10 mg PO DAILY #60 tabs 01/03/23 tramadol 50 mg tablet 50 mg PO Q6H PRN pain #20 tabs 01/12/23 gabapentin 100 mg capsule 100 mg PO DAILY #30 caps 02/07/23 mycophenolate mofetil 500 mg tablet 500 mg PO BID #60 tabs 02/20/23 pantoprazole 40 mg tablet,delayed 40 mg PO BID #30 tabs 02/20/23 release sildenafil (pulm.hypertension) 20 20 mg PO TID #90 tabs 02/20/23 mg tablet Results & Data (ED) Vital Signs Vital Signs - 24 hr 03/02/23 09:49 03/02/23 09:48 03/02/23 09:48 Temperature 37.4 C Temperature Source Oral Pulse Rate 88 Pulse Rate [Apical] Pulse Rate from SpO2 Sensor Pulse Rhythm Respiratory Rate 19 Respiratory Effort / Characteristics Non-Labored Non-Labored Respiratory Depth Normal Normal Respiratory Pattern Regular Blood Pressure 142/78 H Blood Pressure [Left Arm] Blood Pressure Mean 99 Blood Pressure Mean [Left Arm] Pulse Oximetry 100 100 Oxygen Delivery Method Nasal Cannula Nasal Cannula Nasal Cannula Oxygen Flow Rate 5 5 5 Sepsis Recent Fever Within 48 Hours No Sepsis New/Unexplained Change in Mental Status No Sepsis Action Taken by Nursing No Action Required 03/02/23 09:58 03/02/23 10:10 03/02/23 10:08 Temperature Temperature Source Pulse Rate 88 90 91 H Pulse Rate [Apical] Pulse Rate from SpO2 Sensor Pulse Rhythm Regular Respiratory Rate 19 20 Respiratory Effort / Characteristics Respiratory Depth Respiratory Pattern Blood Pressure Blood Pressure [Left Arm] Blood Pressure Mean Blood Pressure Mean [Left Arm] Pulse Oximetry 99 Oxygen Delivery Method Nasal Cannula Oxygen Flow Rate 5 Sepsis Recent Fever Within 48 Hours Sepsis New/Unexplained Change in Mental Status Sepsis Action Taken by Nursing 03/02/23 10:30 03/02/23 10:30 03/02/23 11:00 Temperature Temperature Source Pulse Rate 88 Pulse Rate [Apical] Pulse Rate from SpO2 Sensor 89 Pulse Rhythm Respiratory Rate 19 Respiratory Effort / Characteristics Respiratory Depth Respiratory Pattern Blood Pressure 165/86 H 179/93 H Blood Pressure [Left Arm] Blood Pressure Mean 112 121 Blood Pressure Mean [Left Arm] Pulse Oximetry 100 Oxygen Delivery Method Oxygen Flow Rate Sepsis Recent Fever Within 48 Hours Sepsis New/Unexplained Change in Mental Status Sepsis Action Taken by Nursing 03/02/23 11:00 03/02/23 11:15 Temperature Temperature Source Pulse Rate 86 Pulse Rate [Apical] 86 Pulse Rate from SpO2 Sensor 86 Pulse Rhythm Respiratory Rate 22 21 Respiratory Effort / Characteristics Non-Labored Respiratory Depth Normal Respiratory Pattern Blood Pressure Blood Pressure [Left Arm] 179/93 H Blood Pressure Mean Blood Pressure Mean [Left Arm] 121 Pulse Oximetry 100 100 Oxygen Delivery Method Nasal Cannula Oxygen Flow Rate 5 Sepsis Recent Fever Within 48 Hours Sepsis New/Unexplained Change in Mental Status Sepsis Action Taken by Nursing Laboratory Data 03/02/23 10:16 03/02/23 10:16 Lab Results 03/02/23 03/02/23 03/02/23 Range/Units 10:16 10:16 10:16 WBC 15.13 H (4.8-10.8) K/ul RBC 4.62 (4.20-5.40) M/uL Hgb 12.7 (12.0-16.0) g/dl Hct 40.5 (37.0-47.0) % MCV 87.7 (80.0-100.0) fL MCH 27.5 (25.0-34.0) pg MCHC 31.4 L (32.0-36.0) g/dL RDW Std Deviation 47.4 H (36.4-46.3) fL RDW Coeff of Ese 14.8 H (11.5-14.5) % Plt Count 212 (130-400) K/uL MPV 10.9 (9.4-12.4) fL Immature Gran % (Auto) 1.9 % Neut % (Auto) 73.2 % Lymph % (Auto) 13.9 % [place] % (Auto) 7.1 % Eos % (Auto) 3.1 % Baso % (Auto) 0.8 % Neut # (Auto) 11.08 H (1.40-6.50) K/uL Lymph # (Auto) 2.11 (1.2-3.4) K/uL [place] # (Auto) 1.07 H (0.11-0.59) K/uL Eos # (Auto) 0.47 (0-0.50) K/uL Baso # (Auto) 0.12 (0-0.2) K/uL Immature Gran # (Auto) 0.28 H (0.01-0.20) K/uL PT 10.5 (9.0-12.0) Seconds INR 1.0 (0.9-1.1) APTT 24.4 (21.0-31.0) Seconds PTT Ratio 0.9 VBG pH (7.36-7.41) VBG pCO2 (38-50) mmHg VBG pO2 mmHg VBG HCO3 mmol/L VBG O2 Saturation % VBG Base Excess mEq/L Sodium 140 (136-145) mmol/L Potassium 3.7 (3.5-5.1) mmol/L Chloride 106 (98-107) mmol/L Carbon Dioxide 28 (21-32) mmol/L Anion Gap 6 (3-11) BUN 24 H (6-23) mg/dl Creatinine 0.96 (0.6-1.2) mg/dl Est Cr Clr Drug Dosing 57.7 ml/min Est GFR ( Amer) 68.0 ml/min Est GFR (Non-Af Amer) 58.7 ml/min BUN/Creatinine Ratio 25.0 H (10-20) Glucose 98 (70-99(Fasting)) mg/dl Lactate (0.4-2.0) mmol/L Calcium 8.8 (8.6-10.3) mg/dl Magnesium 1.9 (1.7-2.4) mg/dl Total Bilirubin 0.4 (0.2-1.0) mg/dl AST 13 (13-39) U/L ALT 13 (7-52) U/L Alkaline Phosphatase 83 (34-104) U/L Troponin I High Sens 61.7 H* (0-14) pg/ml C-Reactive Protein (0-0.5) mg/dl B-Natriuretic Peptide (0-100) pg/ml Total Protein 6.3 (6.0-8.3) gm/dl Albumin 3.5 (3.4-5.0) gm/dl Globulin 2.8 (2.5-4.0) gm/dl Albumin/Globulin Ratio 1.3 (0.9-2) Procalcitonin (0-0.5) ng/ml Urine Color Urine Appearance (Clear) Urine pH (4.5-7.5) Ur Specific Benson (1.000-1.030) Urine Protein (Negative) Urine Glucose (UA) (Negative) Urine Ketones (Negative) Urine Blood (Negative) Urine Nitrite (Negative) Urine Bilirubin (Negative) Urine Urobilinogen (Negative) Ur Leukocyte Esterase (Negative) Adenovirus (PCR) (NotDetected) B. pertussis DNA (PCR) (NotDetected) B.parapertussis DNA PCR (NotDetected) C. pneumoniae DNA (PCR) (NotDetected) Coronavirus OC43 (PCR) (NotDetected) Coronavirus HKU1 (PCR) (NotDetected) Coronavirus 229E (PCR) (NotDetected) SARS-CoV-2 (PCR) (NotDetected) Coronavirus NL63 (PCR) (NotDetected) Human Metapneumovir PCR (NotDetected) Influenza Type A (PCR) (NotDetected) Influenza Type B (PCR) (NotDetected) M. pneumoniae (PCR) (NotDetected) Parainfluenza 1 (PCR) (NotDetected) Parainfluenza 2 (PCR) (NotDetected) Parainfluenza 3 (PCR) (NotDetected) Parainfluenza 4 (PCR) (NotDetected) RSV (PCR) (NotDetected) Entero/Rhino (PCR) (NotDetected) 03/02/23 03/02/23 03/02/23 Range/Units 10:16 10:16 10:16 WBC (4.8-10.8) K/ul RBC (4.20-5.40) M/uL Hgb (12.0-16.0) g/dl Hct (37.0-47.0) % MCV (80.0-100.0) fL MCH (25.0-34.0) pg MCHC (32.0-36.0) g/dL RDW Std Deviation (36.4-46.3) fL RDW Coeff of Ese (11.5-14.5) % Plt Count (130-400) K/uL MPV (9.4-12.4) fL Immature Gran % (Auto) % Neut % (Auto) % Lymph % (Auto) % [place] % (Auto) % Eos % (Auto) % Baso % (Auto) % Neut # (Auto) (1.40-6.50) K/uL Lymph # (Auto) (1.2-3.4) K/uL [place] # (Auto) (0.11-0.59) K/uL Eos # (Auto) (0-0.50) K/uL Baso # (Auto) (0-0.2) K/uL Immature Gran # (Auto) (0.01-0.20) K/uL PT (9.0-12.0) Seconds INR (0.9-1.1) APTT (21.0-31.0) Seconds PTT Ratio VBG pH 7.37 (7.36-7.41) VBG pCO2 52 H (38-50) mmHg VBG pO2 41 mmHg VBG HCO3 29 mmol/L VBG O2 Saturation < 60.0 % VBG Base Excess 2.8 mEq/L Sodium (136-145) mmol/L Potassium (3.5-5.1) mmol/L Chloride (98-107) mmol/L Carbon Dioxide (21-32) mmol/L Anion Gap (3-11) BUN (6-23) mg/dl Creatinine (0.6-1.2) mg/dl Est Cr Clr Drug Dosing ml/min Est GFR ( Amer) ml/min Est GFR (Non-Af Amer) ml/min BUN/Creatinine Ratio (10-20) Glucose (70-99(Fasting)) mg/dl Lactate 1.5 (0.4-2.0) mmol/L Calcium (8.6-10.3) mg/dl Magnesium (1.7-2.4) mg/dl Total Bilirubin (0.2-1.0) mg/dl AST (13-39) U/L ALT (7-52) U/L Alkaline Phosphatase (34-104) U/L Troponin I High Sens (0-14) pg/ml C-Reactive Protein (0-0.5) mg/dl B-Natriuretic Peptide 104 H (0-100) pg/ml Total Protein (6.0-8.3) gm/dl Albumin (3.4-5.0) gm/dl Globulin (2.5-4.0) gm/dl Albumin/Globulin Ratio (0.9-2) Procalcitonin (0-0.5) ng/ml Urine Color Urine Appearance (Clear) Urine pH (4.5-7.5) Ur Specific Benson (1.000-1.030) Urine Protein (Negative) Urine Glucose (UA) (Negative) Urine Ketones (Negative) Urine Blood (Negative) Urine Nitrite (Negative) Urine Bilirubin (Negative) Urine Urobilinogen (Negative) Ur Leukocyte Esterase (Negative) Adenovirus (PCR) (NotDetected) B. pertussis DNA (PCR) (NotDetected) B.parapertussis DNA PCR (NotDetected) C. pneumoniae DNA (PCR) (NotDetected) Coronavirus OC43 (PCR) (NotDetected) Coronavirus HKU1 (PCR) (NotDetected) Coronavirus 229E (PCR) (NotDetected) SARS-CoV-2 (PCR) (NotDetected) Coronavirus NL63 (PCR) (NotDetected) Human Metapneumovir PCR (NotDetected) Influenza Type A (PCR) (NotDetected) Influenza Type B (PCR) (NotDetected) M. pneumoniae (PCR) (NotDetected) Parainfluenza 1 (PCR) (NotDetected) Parainfluenza 2 (PCR) (NotDetected) Parainfluenza 3 (PCR) (NotDetected) Parainfluenza 4 (PCR) (NotDetected) RSV (PCR) (NotDetected) Entero/Rhino (PCR) (NotDetected) 03/02/23 03/02/23 03/02/23 Range/Units 10:16 10:16 11:32 WBC (4.8-10.8) K/ul RBC (4.20-5.40) M/uL Hgb (12.0-16.0) g/dl Hct (37.0-47.0) % MCV (80.0-100.0) fL MCH (25.0-34.0) pg MCHC (32.0-36.0) g/dL RDW Std Deviation (36.4-46.3) fL RDW Coeff of Ese (11.5-14.5) % Plt Count (130-400) K/uL MPV (9.4-12.4) fL Immature Gran % (Auto) % Neut % (Auto) % Lymph % (Auto) % [place] % (Auto) % Eos % (Auto) % Baso % (Auto) % Neut # (Auto) (1.40-6.50) K/uL Lymph # (Auto) (1.2-3.4) K/uL [place] # (Auto) (0.11-0.59) K/uL Eos # (Auto) (0-0.50) K/uL Baso # (Auto) (0-0.2) K/uL Immature Gran # (Auto) (0.01-0.20) K/uL PT (9.0-12.0) Seconds INR (0.9-1.1) APTT (21.0-31.0) Seconds PTT Ratio VBG pH (7.36-7.41) VBG pCO2 (38-50) mmHg VBG pO2 mmHg VBG HCO3 mmol/L VBG O2 Saturation % VBG Base Excess mEq/L Sodium (136-145) mmol/L Potassium (3.5-5.1) mmol/L Chloride (98-107) mmol/L Carbon Dioxide (21-32) mmol/L Anion Gap (3-11) BUN (6-23) mg/dl Creatinine (0.6-1.2) mg/dl Est Cr Clr Drug Dosing ml/min Est GFR ( Amer) ml/min Est GFR (Non-Af Amer) ml/min BUN/Creatinine Ratio (10-20) Glucose (70-99(Fasting)) mg/dl Lactate (0.4-2.0) mmol/L Calcium (8.6-10.3) mg/dl Magnesium (1.7-2.4) mg/dl Total Bilirubin (0.2-1.0) mg/dl AST (13-39) U/L ALT (7-52) U/L Alkaline Phosphatase (34-104) U/L Troponin I High Sens (0-14) pg/ml C-Reactive Protein (0-0.5) mg/dl B-Natriuretic Peptide (0-100) pg/ml Total Protein (6.0-8.3) gm/dl Albumin (3.4-5.0) gm/dl Globulin (2.5-4.0) gm/dl Albumin/Globulin Ratio (0.9-2) Procalcitonin < 0.05 (0-0.5) ng/ml Urine Color Yellow Urine Appearance Clear (Clear) Urine pH 6.5 (4.5-7.5) Ur Specific Benson 1.017 (1.000-1.030) Urine Protein Negative (Negative) Urine Glucose (UA) Negative (Negative) Urine Ketones Negative (Negative) Urine Blood Negative (Negative) Urine Nitrite Negative (Negative) Urine Bilirubin Negative (Negative) Urine Urobilinogen Negative (Negative) Ur Leukocyte Esterase Negative (Negative) Adenovirus (PCR) Not Detected (NotDetected) B. pertussis DNA (PCR) Not Detected (NotDetected) B.parapertussis DNA PCR Not Detected (NotDetected) C. pneumoniae DNA (PCR) Not Detected (NotDetected) Coronavirus OC43 (PCR) Not Detected (NotDetected) Coronavirus HKU1 (PCR) Not Detected (NotDetected) Coronavirus 229E (PCR) Not Detected (NotDetected) SARS-CoV-2 (PCR) Not Detected (NotDetected) Coronavirus NL63 (PCR) Not Detected (NotDetected) Human Metapneumovir PCR Not Detected (NotDetected) Influenza Type A (PCR) Not Detected (NotDetected) Influenza Type B (PCR) Not Detected (NotDetected) M. pneumoniae (PCR) Not Detected (NotDetected) Parainfluenza 1 (PCR) Not Detected (NotDetected) Parainfluenza 2 (PCR) Not Detected (NotDetected) Parainfluenza 3 (PCR) Not Detected (NotDetected) Parainfluenza 4 (PCR) Not Detected (NotDetected) RSV (PCR) Not Detected (NotDetected) Entero/Rhino (PCR) Not Detected (NotDetected) 03/02/23 Range/Units 12:45 WBC (4.8-10.8) K/ul RBC (4.20-5.40) M/uL Hgb (12.0-16.0) g/dl Hct (37.0-47.0) % MCV (80.0-100.0) fL MCH (25.0-34.0) pg MCHC (32.0-36.0) g/dL RDW Std Deviation (36.4-46.3) fL RDW Coeff of Ese (11.5-14.5) % Plt Count (130-400) K/uL MPV (9.4-12.4) fL Immature Gran % (Auto) % Neut % (Auto) % Lymph % (Auto) % [place] % (Auto) % Eos % (Auto) % Baso % (Auto) % Neut # (Auto) (1.40-6.50) K/uL Lymph # (Auto) (1.2-3.4) K/uL [place] # (Auto) (0.11-0.59) K/uL Eos # (Auto) (0-0.50) K/uL Baso # (Auto) (0-0.2) K/uL Immature Gran # (Auto) (0.01-0.20) K/uL PT (9.0-12.0) Seconds INR (0.9-1.1) APTT (21.0-31.0) Seconds PTT Ratio VBG pH (7.36-7.41) VBG pCO2 (38-50) mmHg VBG pO2 mmHg VBG HCO3 mmol/L VBG O2 Saturation % VBG Base Excess mEq/L Sodium (136-145) mmol/L Potassium (3.5-5.1) mmol/L Chloride (98-107) mmol/L Carbon Dioxide (21-32) mmol/L Anion Gap (3-11) BUN (6-23) mg/dl Creatinine (0.6-1.2) mg/dl Est Cr Clr Drug Dosing ml/min Est GFR ( Amer) ml/min Est GFR (Non-Af Amer) ml/min BUN/Creatinine Ratio (10-20) Glucose (70-99(Fasting)) mg/dl Lactate (0.4-2.0) mmol/L Calcium (8.6-10.3) mg/dl Magnesium (1.7-2.4) mg/dl Total Bilirubin (0.2-1.0) mg/dl AST (13-39) U/L ALT (7-52) U/L Alkaline Phosphatase (34-104) U/L Troponin I High Sens 48.6 H D (0-14) pg/ml C-Reactive Protein < 0.50 (0-0.5) mg/dl B-Natriuretic Peptide (0-100) pg/ml Total Protein (6.0-8.3) gm/dl Albumin (3.4-5.0) gm/dl Globulin (2.5-4.0) gm/dl Albumin/Globulin Ratio (0.9-2) Procalcitonin (0-0.5) ng/ml Urine Color Urine Appearance (Clear) Urine pH (4.5-7.5) Ur Specific Benson (1.000-1.030) Urine Protein (Negative) Urine Glucose (UA) (Negative) Urine Ketones (Negative) Urine Blood (Negative) Urine Nitrite (Negative) Urine Bilirubin (Negative) Urine Urobilinogen (Negative) Ur Leukocyte Esterase (Negative) Adenovirus (PCR) (NotDetected) B. pertussis DNA (PCR) (NotDetected) B.parapertussis DNA PCR (NotDetected) C. pneumoniae DNA (PCR) (NotDetected) Coronavirus OC43 (PCR) (NotDetected) Coronavirus HKU1 (PCR) (NotDetected) Coronavirus 229E (PCR) (NotDetected) SARS-CoV-2 (PCR) (NotDetected) Coronavirus NL63 (PCR) (NotDetected) Human Metapneumovir PCR (NotDetected) Influenza Type A (PCR) (NotDetected) Influenza Type B (PCR) (NotDetected) M. pneumoniae (PCR) (NotDetected) Parainfluenza 1 (PCR) (NotDetected) Parainfluenza 2 (PCR) (NotDetected) Parainfluenza 3 (PCR) (NotDetected) Parainfluenza 4 (PCR) (NotDetected) RSV (PCR) (NotDetected) Entero/Rhino (PCR) (NotDetected) Administered Medications Albuterol (Albut/Ipratrop 3mg/0.5mg Neb 3 Ml Vial) 3 ml NEB QIDR IONA; Protocol Stop: 04/01/23 14:59 Last Admin: 03/02/23 14:43 Dose: 3 ml Documented By: JHONY Sodium Chloride (Sodium Chloride 0.65% Na Soln 45 Ml ([place])) 1 sprays NA TID IONA Stop: 04/01/23 13:59 Last Admin: 03/02/23 13:59 Dose: 1 sprays Documented By: JHONY Discontinued Medications Azithromycin (Azithromycin 250 Mg Tab) 500 mg PO NOW ONE Stop: 03/02/23 12:12 Last Admin: 03/02/23 12:38 Dose: 500 mg Documented By: JHONY Furosemide (Furosemide 40 Mg/4 Ml Vial) 40 mg IV ONE ONE Stop: 03/02/23 12:05 Last Admin: 03/02/23 12:39 Dose: 40 mg Documented By: ES Ceftriaxone Sodium (Rocephin) 2,000 mg in 70 mls @ 140 mls/hr IV NOW STA Stop: 03/02/23 12:36 Last Infusion: 03/02/23 13:06 Dose: 0 mls/hr Documented By: Admin: 03/02/23 12:39 Dose: 140 mls/hr Documented By: JHONY Montelukast Sodium (Montelukast Sodium 10 Mg Tablet) 10 mg PO NOW ONE Stop: 03/02/23 12:49 Last Admin: 03/02/23 13:59 Dose: 10 mg Documented By: JHONY Prednisone (Prednisone 20 Mg Tab) 20 mg PO NOW STA Stop: 03/02/23 12:54 Last Admin: 03/02/23 13:59 Dose: 20 mg Documented By: JHONY Imaging Data Radiologist's Impression: Chest X-Ray 03/02/23 09:55 XR chest 1V portable CLINICAL HISTORY: Dyspnea. COMPARISON STUDY: Chest radiograph August 10, [address] January 05, 2022. FINDINGS: No pneumothorax or pleural effusion is noted. Cardiomegaly is unchang ed. Mediastinal contours are stable. Interstitial thickening is unchanged. No superimposed consolidation is identified. No evidence for pulmonary edema. IMPRESSION: Cardiomegaly. Stable interstitial thickening suggestive of interstitial lung disease. No acute findings. ACT 112: Negative or not required by law. Electronically signed by: Parminder Ayala M.D. 03/02/2023 10:43 AM Discharge Plan Visit Data Chief Complaint: Shortness of Breath/Dyspnea Stated Complaint: SOB ED Provider: Adalberto Bradley Discharge Problem: SOB (shortness of breath), Acute exacerbation of idiopathic pulmonary fibrosis, Elevated troponin, Fluid overload Patient Disposition: Admitted As Inpatient Discharge Instructions Interventions: ED Discharge Assessment Last Done: 03/02/23 13:10
[2023-03-02 10:37] LABS: pH VBG 7.37 (7.36-7.41)
--- NOTE | 2023-03-02 10:45 | XRay Report ---
XR chest 1V portable CLINICAL HISTORY: Dyspnea. COMPARISON STUDY: Chest radiograph August 10, [address] January 05, 2022. FINDINGS: No pneumothorax or pleural effusion is noted. Cardiomegaly is unchanged. Mediastinal contou rs are stable. Interstitial thickening is unchanged. No superimposed consolidation is identified. No evidence for pulmonary edema. IMPRESSION: Cardiomegaly. Stable interstitial thickening suggestive of interstitial lung disease. No acute findings. ACT 112: Negative or not required by law. Electronically signed by: Parminder Ayala M.D. 03/02/2023 10:43 AM
[2023-03-02 10:50] LABS: Basophils # (auto) 0.12 K/uL (0-0.2); Basophils % (auto) 0.8 %; Eosinophils # (auto) 0.47 K/uL (0-0.50); Eosinophils % (auto) 3.1 %; Hematocrit (blood only) 40.5 % (37.0-47.0); Hemoglobin 12.7 g/dl (12.0-16.0); Immature Granulocytes # (auto) 0.28 K/uL (0.01-0.20); Immature Granulocytes % (auto) 1.9 %; Lymphocytes # (auto) 2.11 K/uL (1.2-3.4); Lymphocytes % (auto) 13.9 %; Mean Corpuscular Hemoglobin 27.5 pg (25.0-34.0); Mean Corpuscular Hgb Conc 31.4 g/dL (32.0-36.0); Mean Corpuscular Volume 87.7 fL (80.0-100.0); Mean Platelet Volume 10.9 fL (9.4-12.4); Monocytes # (auto) 1.07 K/uL (0.11-0.59); Monocytes % (auto) 7.1 %; Neutrophils # (auto) 11.08 K/uL (1.40-6.50); Neutrophils % (auto) 73.2 %; Platelet Count 212 K/uL (130-400); RDW Coefficient of Variation 14.8 % (11.5-14.5); RDW Standard Deviation 47.4 fL (36.4-46.3); Red Blood Count 4.62 M/uL (4.20-5.40); White Blood Count 15.13 K/ul (4.8-10.8)
[2023-03-02 10:57] LABS: Albumin Globulin Ratio 1.3 (0.9-2); Albumin Level 3.5 gm/dl (3.4-5.0); Bilirubin,Total 0.4 mg/dl (0.2-1.0); Calcium 8.8 mg/dl (8.6-10.3); Creatinine Clr Calc Pharmacy 57.7 ml/min; Est GFR (Non-African American) 58.7 ml/min; Globulin 2.8 gm/dl (2.5-4.0); Magnesium 1.9 mg/dl (1.7-2.4); Potassium 3.7 mmol/L (3.5-5.1); Total Protein 6.3 gm/dl (6.0-8.3)
[2023-03-02 11:11] LABS: Partial Thromboplastin Ratio 0.9; Partial Thromboplastin Time 24.4 Seconds (21.0-31.0); Prothrombin Time 10.5 Seconds (9.0-12.0); Troponin I High Sensitivity 61.7 pg/ml (0-14)
[2023-03-02 11:27] LABS: Base Excess VBG 2.8 mEq/L; HCO3 VBG 29 mmol/L; Oxygen Saturation VBG < 60.0 %; PCO2 VBG 52 mmHg (38-50); PO2 VBG 41 mmHg
[2023-03-02 11:35] LABS: Adenovirus PCR Not Detected (NotDetected); Bordetella parapertussis PCR Not Detected (NotDetected); Bordetella pertussis PCR Not Detected (NotDetected); Chlamydia pneumoniae PCR Not Detected (NotDetected); Coronavirus 229E PCR Not Detected (NotDetected); Coronavirus CoV-2 (COVID19)PCR Not Detected (NotDetected); Coronavirus HKU1 PCR Not Detected (NotDetected); Coronavirus NL63 PCR Not Detected (NotDetected); Coronavirus OC43PCR Not Detected (NotDetected); Human Metapneumovirus PCR Not Detected (NotDetected); Influenza A PCR Not Detected (NotDetected); Influenza B PCR Not Detected (NotDetected); Mycoplasma pneumoniae PCR Not Detected (NotDetected); Parainfluenza Virus 1 PCR Not Detected (NotDetected); Parainfluenza Virus 2 PCR Not Detected (NotDetected); Parainfluenza Virus 3 PCR Not Detected (NotDetected); Parainfluenza Virus 4 PCR Not Detected (NotDetected); Respiratory Syncytial VirusPCR Not Detected (NotDetected); Rhinovirus/Enterovirus PCR Not Detected (NotDetected)
[2023-03-02] MEDS ORDERED: FUROSEMIDE 40 MG/4 ML VIAL IV ONE (12:04)
[2023-03-02 12:06] LABS: Appearance Urine Clear (Clear); Bilirubin Urine Negative (Negative); Blood Urine Negative (Negative); Color Urine Yellow; Glucose Urine UA Negative (Negative); Ketones Urine Negative (Negative); Leukocyte Esterase Urine Negative (Negative); Nitrite Urine Negative (Negative); Protein Urine Negative (Negative); Specific Gravity Urine 1.017 (1.000-1.030); Urobilinogen Urine Negative (Negative); pH Urine 6.5 (4.5-7.5)
[2023-03-02] MEDS ORDERED: cefTRIAXone SODIUM 2,000 MG/70 ML BAG IV STA (12:07)
[2023-03-02] MEDS ORDERED: AZITHROMYCIN 250 MG TAB PO ONE (12:11)
--- NOTE | 2023-03-02 12:25 | Pulmonary Consultation ---
Date of Consultation March 02, 2023 Assessment & Plan (1) Interstitial lung disease: Agree with empiric antibiotics. We will hold on escalating her dose of prednisone. Check CRP and procalcitonin. (2) On home oxygen therapy: Continue supplemental oxygen to maintain saturations above 89%. (3) Failure of outpatient treatment: I recently increased her steroids to 30 mg a day from 15 mg a day. It is unclear at this time whether her acute process is steroid responsive. We will decrease her steroid dose to 20 mg a day for 2 days and then decrease to 15 mg thereafter (4) Acute dyspnea: Multifactorial as noted above. (5) Pulmonary edema: BNP very mildly elevated. Trial of diuresis. Patient has WHO group 2 and 3 pulmonary hypertension. Continue sildenafil. Plan Discussed with hospitalist service at bedside, FAVIO Leija. Thank you for allowing me to participate in the care of the patient. We will continue to follow with you. History of Present Illness Reason for Consultation: Coughing and hypoxia History of Present Illness 72-year-old female well-known to me with a history of secondary pulmonary hypertension and collagen vascular disease ILD presenting to the hospital due to severe cough and worsening shortness of breath. She is currently saturating 100% on 5 L of oxygen. Her baseline oxygen needs are 3 to 5 L. She is being started on antibiotics by the ER. I last saw her in the clinic 02/20/2023 and ordered for her to start sildenafil 20 mg 3 times a day and increased mycophenolate to 500 mg twice daily. Patient notes increasing lower extremity edema and difficulty with shortness of breath on exertion and at night. In the ER her troponin was mildly elevated along with a mild elevation in white count. She was also on a steroid burst to 30 mg for 7 days. She has a history of an elevated ALEXEY on labs performed at [facility]. She saw a policy director named Dr. Paul there previously. Multidisciplinary conference at [facility] indicated that she would benefit from chronic immunosuppressive therapy +/- antifibrotic therapy. Respiratory bio fire this admission is negative. Chest x-ray on admission shows chronic interstitial markings and signs of pulmonary edema. I discussed the case with the ER physician and recommended a dose of 40 mg IV Lasix. They are consulting medicine as well for admission due to concerns of an elevated troponin and further cardiac work-up. She underwent a right heart catheterization January 25 which revealed moderate pulmonary hypertension with a normal wedge pressure. Allergies Allergy/AdvReac Type Severity Reaction Status Date / Time latex Allergy Intermediate Rash, hand Verified 03/02/23 11:40 swelling Sulfa (Sulfonamide Allergy Intermediate Rash Verified 03/02/23 11:40 Antibiotics) Penicillins Allergy Unknown Unknown Verified 03/02/23 11:40 reaction (as teenager) morphine AdvReac Intermediate Anxiety Verified 03/02/23 11:40 Home Medications Medication Instructions Recorded Confirmed Type amitriptyline 25 mg tablet 25 mg PO HS #90 tabs 09/26/21 03/02/23 Rx Portable Oxygen #1 ea 01/25/22 03/02/23 Rx Portable Oxygen #1 ea 02/17/22 03/02/23 Rx ibuprofen 200 mg capsule 200 mg PO Q6H PRN Pain 09/29/22 03/02/23 History topiramate 100 mg tablet (Topamax) 100 mg PO BID 09/29/22 03/02/23 History lamotrigine 100 mg tablet 100 mg PO DAILY 11/16/22 03/02/23 History (Lamictal) prednisone 10 mg tablet 10 mg PO DAILY #60 tabs 01/03/23 03/02/23 Rx tramadol 50 mg tablet 50 mg PO Q6H PRN pain #20 tabs 01/12/23 03/02/23 Rx gabapentin 100 mg capsule 100 mg PO DAILY #30 caps 02/07/23 03/02/23 Rx mycophenolate mofetil 500 mg tablet 500 mg PO BID #60 tabs 02/20/23 03/02/23 Rx pantoprazole 40 mg tablet,delayed 40 mg PO BID #30 tabs 02/20/23 03/02/23 Rx release sildenafil (pulm.hypertension) 20 20 mg PO TID #90 tabs 02/20/23 03/02/23 Rx mg tablet buspirone 10 mg tablet 20 mg PO DAILY 03/02/23 03/02/23 History levothyroxine 137 mcg tablet 137 mcg PO QAM 03/02/23 03/02/23 History Patient History Medical History (Updated 03/02/23 @ 12:23 by Joseph Romero MD) Acute dyspnea Acute on chronic respiratory failure with hypoxemia Anxiety and depression Arrhythmia ? hx of a. fib- on Eliquis per cardiology Bipolar disorder Cerebrovascular accident (CVA) of left thalamus 06/11/2021 (post-op Right TKA) > POD#1 ischemic left thalamic stroke CVA > 9 months from DOS Chronic cough Chronic hypoxemic respiratory failure Chronic low back pain Diffuse myofascial pain syndrome GERD (gastroesophageal reflux disease) History of blood transfusion Post-op 2017 History of COVID-19 12/2020 > fully recovered Hyperglycemia Hx mild hyperglycemia under surveillance by PCP. Most recent A1C 5.6% (06/12/21) Hypothyroidism IBS (irritable bowel syndrome) Intermittent flares - takes Amitriptyline and Protonix for GI pain control Interstitial lung disease IPF (idiopathic pulmonary fibrosis) Left bundle branch block Follows with [facility] cardiology On home oxygen therapy 2-3L at rest/5L with activity Osteopenia Pulmonary edema Pulmonary hypertension Moderately elevated estimated RVSP (RVSP 40-50mmhg) per 01/19/22 echo Secondary pulmonary hypertension Secondary pulmonary hypertension Shortness of breath Spinal stenosis Weight gain Surgical History History of anesthesia reaction "Slow to wake" x1 episode after 3 hour surgery in 2017- she states she became violent and upset, hallucinated while waking up. Began to calm down once she heard her daughter's voice. History of arthroscopy R/L knee History of cholecystectomy History of colonoscopy History of hernia surgery History of hysterectomy History of loop recorder History of surgery Right Quadriceps Repair (06/14/21): LMA#4 at [facility]. No issues noted per post-op anesthesia progress note. History of total knee replacement Right TKA (06/10/21): SAB at L4-5 (x1 attempt) + PNB at [facility] Status post bronchoscopy With BAL 08/01/[address] Romero at [facility] Status post gastric banding surgery + removal Family History Family/Other No problems noted. Mother Colon cancer Dementia Father , at age 79 from mesothelioma. Mesothelioma Sister No problems noted. Sister No problems noted. Son No problems noted. Daughter No problems noted. Other Family history of diabetes mellitus in father Denies family history of Ovarian cancer Prostate cancer Myocardial infarction Breast cancer Social History Smoking Status: Never smoker Tobacco Type: Cigarettes packs per day: 1; Second Hand Exposure: No; Do You Dip or Chew Tobacco: No; Hx Alcohol Use: Yes Alcohol type: wine Hx Substance Use: No Preferred Language: Thai Communication Ability: Effective Visual Impairment: No Limitations Cement Handler Required: No Beliefs That Will Affect Care: None marital status: Single Current Living Situation: Alone Current Living Situation Comment: IN 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 current occupational status: retired Feels Safe at Home: Yes Childhood Exposure to Second-Hand Smoke: Yes Dental Care, Regularly: Yes Physical Activity Frequency: Daily Seatbelt Use: always Sunscreen Use: No Assistive Devices: Cane and Walker Review of Systems Review of Systems: All systems reviewed & are unremarkable except as noted in HPI & below Physical Exam Physical Exam: Constitutional: Overweight appearing female in no apparent distress. Nasal cannula in place. Eyes: Pupils are equal round and reactive to light. Conjunctivae are normal. Anicteric sclera. Ears nose, mouth and throat: Obvious deformity seen. Nasal cannula in place. Neck: Trachea is midline. Visual inspection is normal. Respiratory: Mild crackles noted bibasilarly. No wheezes. Cardiovascular: Regular rate and rhythm. No murmurs. No edema. Musculoskeletal: No cyanosis. Patient is able to move all extremities. Skin: No rashes, warm dry and intact. Neurologic: No obvious focal neurological deficits seen. Psychiatric: Alert and oriented x3 with a euthymic affect. Results & Data Results & Data Vital Signs (Past 12 Hours) Vital Signs Temp Pulse Pulse Resp BP BP Pulse Ox 03/02/23 11:15 86 21 179/93 H 100 03/02/23 11:00 86 22 100 03/02/23 11:00 179/93 H 03/02/23 10:30 88 19 100 03/02/23 10:30 165/86 H 03/02/23 10:08 91 H 20 03/02/23 10:10 90 03/02/23 09:58 88 19 99 03/02/23 09:48 100 03/02/23 09:48 03/02/23 09:49 37.4 C 88 19 142/78 H 100 O2 Del Method O2 Flow Rate 03/02/23 11:15 Nasal Cannula 5 03/02/23 11:00 03/02/23 11:00 03/02/23 10:30 03/02/23 10:30 03/02/23 10:08 03/02/23 10:10 03/02/23 09:58 Nasal Cannula 5 03/02/23 09:48 Nasal Cannula 5 03/02/23 09:48 Nasal Cannula 5 03/02/23 09:49 Nasal Cannula 5 PG Care Time/CCT Total # of Minutes Spent Total Time Spent with Patient: Total time spent is greater than 50% in coordination of care (as documented) at patient's floor/unit and/or counseling patient: Coding Level of Care Code 64328 INT INP/OBS CARE 3/75MIN Diagnoses Interstitial lung disease J84.9 On home oxygen therapy Z99.81 Failure of outpatient treatment Z78.9 Acute dyspnea R06.00 Pulmonary edema J81.1
--- NOTE | 2023-03-02 12:28 | History & Physical Report ---
Date of Service March 02, 2023 Assessment & Plan (1) Dyspnea: Plan: -Admit to med/tele on cont pulse oximetry -Currently stable on baseline 3L NC -At the time the patient's acute on chronic dyspnea is likely multifactorial including her chronic lung disease likely being exacerbated by untreated seasonal allergies, known pulmonary HTN, and possible CHF -Full respiratory biofire is negative, low suspicion for bacterial pna at this time but will follow procal -Given a dose of ceftriaxone and azithromycin in the ED, will continue with Azithromycin for now to cover atypicals, QTc WNL -Continue scheduled DuoNebs for now, incentive spirometry, flutter therapy, prn O2 to keep SpO2 at or above 92% -BNP today is 108, crackles noted on lung exam, will get TTE for further evaluation -Do not think that her dyspnea is related to ACS at this time as she is without chest pain or acute ECG changes, low suspicion for PE at this time as she is stable on baseline O2, hemodynamically stable, and without chest pain -S/P 40 mg IV lasix in the ED, will hold additional for now until we get the echo results -BL SCD's and SQ lovenox for DVT PPX -AM CBC, CMP, Mag (2) Interstitial lung disease: Plan: -Per Dr. Romero: >Continue with 20 mg Prednisone daily for now to start weaning her back to her baseline 10 mg PO daily >Continue BID Cellcept >Agrees with continuing Azithromycin for now >Continue TID sildenafil >Agrees with heart failure workup -Pulmonology consulted and will continue to follow (3) Elevated troponin: Plan: -Initial high sen trop elevated at 68 -Patient is asymptomatic and without acute ST segment or T-wave changes -Likely due to demand, will continue to trend trop and monitor on tele -Will FU on on TTE (4) Secondary pulmonary hypertension: Plan: -Continue sildenafil (5) Diabetes mellitus type II, controlled: Plan: -Not currently on medical regimen as last A1c in October was 5.4 -For now will monitor BSG ACHS, goal is 110-160 on steroids -Start with CF of 50 ACHS for now -DM II and low sodium diet for now (6) Post traumatic stress disorder: Plan: -Continue Topamax, lamictal, and buspar (7) Hypothyroidism: Plan: -continue levothyroxine (8) GERD (gastroesophageal reflux disease): Plan: -continue protonix (9) Post-nasal drip: Plan: -Starting her on Singulair and Saline nasal spray Plan The patient was discussed with Dr. Tai at the time of the admission History of Present Illness Chief Complaint: Increased SOB Primary Care Provider: Ted Singh MD Marichuy is a 72 year old female with a PMH significant for collagen vascular disease ILD on 3L NC chronic oxygen therapy (Follows with Dr. Romero), pulmonary HTN, Paroxysmal SVT, DM II, previous CVA, GERD, bipolar disorder, and hypothyroidism who presented to the [facility] ED on 03/02/23 for increased SOB, increased O2 demands, increased cough, and nausea. In the ED the patient was noted to be stable on 5L NC, otherwise vitals were stable. Labs were significant for a leukocytosis of 15 with left shift of 11, increased immature granulocytes at 0.28, initial high sen trop of 61 with BNP of 104 (up from 67 as of 12/2021), and full respiratory biofire negative. Chest xray was read as Cardiomegaly. Stable interstitial thickening suggestive of interstitial lung disease. No acute findings. Prior to admission the patient was a dose of Ceftriaxone, Azithromycin, and 40 mg IV lasix. At the time of the exam the patient was sitting in bed in no acute distress. We were able to turn her O2 down to 3L NC and she remained stable throughout. Since seeing Dr. Romero on 02/20 she has been experiencing increased congestion, post nasal drip, and dry cough. She felt as though he chronic SOB had progressed during this time and had increased her O2 to 5L NC from her baseline of 3L. She denies recent fevers, increased sputum production, change in sputum color, abd pain, nausea, vomiting, dysuria, hematuria, diarrhea, melena, and recent trauma. She had 1 min of 3/10 chest tightness this am while sitting in her recliner, this resolved spontaneously and she has been chest discomfort free since. She has noticed increased BL LE swelling. I saw the patient with Dr. Romero at the time of admission. He explained that he instructed her to take 30 mg PO prednisone daily from her typical dose fo 10 mg daily for a week after her last visit. She was still taking 30 mg daily as of yesterday and did not have her prednisone yet today. She has continued to take her Cellcept as prescribed without side effects. Due to the patient having a recent Right heart catheterization with mild to moderate pulm hypertension Dr. Romero had started her on Sildenafil, which she has been taking without side effects. She has noticed increased sinus congestion over the past week with her other symptoms. Please refer to Dr. Tai's attestation for any changes to the treatment plan Allergies Allergy/AdvReac Type Severity Reaction Status Date / Time latex Allergy Intermediate Rash, hand Verified 03/02/23 11:40 swelling Sulfa (Sulfonamide Allergy Intermediate Rash Verified 03/02/23 11:40 Antibiotics) Penicillins Allergy Unknown Unknown Verified 03/02/23 11:40 reaction (as teenager) morphine AdvReac Intermediate Anxiety Verified 03/02/23 11:40 Home Medications Medication Instructions Recorded Confirmed Type amitriptyline 25 mg tablet 25 mg PO HS #90 tabs 09/26/21 03/02/23 Rx Portable Oxygen #1 ea 01/25/22 03/02/23 Rx Portable Oxygen #1 ea 02/17/22 03/02/23 Rx ibuprofen 200 mg capsule 200 mg PO Q6H PRN Pain 09/29/22 03/02/23 History topiramate 100 mg tablet (Topamax) 100 mg PO BID 09/29/22 03/02/23 History lamotrigine 100 mg tablet 100 mg PO DAILY 11/16/22 03/02/23 History (Lamictal) prednisone 10 mg tablet 10 mg PO DAILY #60 tabs 01/03/23 03/02/23 Rx tramadol 50 mg tablet 50 mg PO Q6H PRN pain #20 tabs 01/12/23 03/02/23 Rx gabapentin 100 mg capsule 100 mg PO DAILY #30 caps 02/07/23 03/02/23 Rx mycophenolate mofetil 500 mg tablet 500 mg PO BID #60 tabs 02/20/23 03/02/23 Rx pantoprazole 40 mg tablet,delayed 40 mg PO BID #30 tabs 02/20/23 03/02/23 Rx release sildenafil (pulm.hypertension) 20 20 mg PO TID #90 tabs 02/20/23 03/02/23 Rx mg tablet buspirone 10 mg tablet 20 mg PO DAILY 03/02/23 03/02/23 History levothyroxine 137 mcg tablet 137 mcg PO QAM 03/02/23 03/02/23 History Past Med/Surg History Medical History (Updated 03/02/23 @ 15:13 by Adalberto Bradley M.D.) Acute dyspnea Acute on chronic respiratory failure with hypoxemia Anxiety and depression Arrhythmia ? hx of a. fib- on Eliquis per cardiology Bipolar disorder Cerebrovascular accident (CVA) of left thalamus 06/11/2021 (post-op Right TKA) > POD#1 ischemic left thalamic stroke CVA > 9 months from DOS Chronic cough Chronic hypoxemic respiratory failure Chronic low back pain Diffuse myofascial pain syndrome GERD (gastroesophageal reflux disease) History of blood transfusion Post-op 2017 History of COVID-19 12/2020 > fully recovered Hyperglycemia Hx mild hyperglycemia under surveillance by PCP. Most recent A1C 5.6% (06/12/21) Hypothyroidism IBS (irritable bowel syndrome) Intermittent flares - takes Amitriptyline and Protonix for GI pain control Interstitial lung disease IPF (idiopathic pulmonary fibrosis) Left bundle branch block Follows with [facility] cardiology On home oxygen therapy 2-3L at rest/5L with activity Osteopenia Pulmonary edema Pulmonary hypertension Moderately elevated estimated RVSP (RVSP 40-50mmhg) per 01/19/22 echo Secondary pulmonary hypertension Secondary pulmonary hypertension Shortness of breath Spinal stenosis Weight gain Surgical History History of anesthesia reaction "Slow to wake" x1 episode after 3 hour surgery in 2017- she states she became violent and upset, hallucinated while waking up. Began to calm down once she heard her daughter's voice. History of arthroscopy R/L knee History of cholecystectomy History of colonoscopy History of hernia surgery History of hysterectomy History of loop recorder History of surgery Right Quadriceps Repair (06/14/21): LMA#4 at [facility]. No issues noted per post-op anesthesia progress note. History of total knee replacement Right TKA (06/10/21): SAB at L4-5 (x1 attempt) + PNB at [facility] Status post bronchoscopy With BAL 08/01/[address] Romero at [facility] Status post gastric banding surgery + removal Family History Family/Other No problems noted. Mother Colon cancer Dementia Father , at age 79 from mesothelioma. Mesothelioma Sister No problems noted. Sister No problems noted. Son No problems noted. Daughter No problems noted. Other Family history of diabetes mellitus in father Denies family history of Ovarian cancer Prostate cancer Myocardial infarction Breast cancer Social History Smoking Status: Never smoker Tobacco Type: Cigarettes packs per day: 1; Second Hand Exposure: No; Do You Dip or Chew Tobacco: No; Hx Alcohol Use: Yes Alcohol type: wine Hx Substance Use: No Preferred Language: [place] Communication Ability: Effective Visual Impairment: No Limitations [employer] Required: No Beliefs That Will Affect Care: None marital status: Single Current Living Situation: Alone Current Living Situation Comment: IN 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 current occupational status: retired Feels Safe at Home: Yes Childhood Exposure to Second-Hand Smoke: Yes Dental Care, Regularly: Yes Physical Activity Frequency: Daily Seatbelt Use: always Sunscreen Use: No Assistive Devices: Cane and Walker Physical Exam Physical Exam: Physical Exam: General: In no acute distress, stated age, chronically ill appearing HEENT: Normocephalic, atraumatic, no scleral icterus, pupils around round, symmetrical, and reactive to light, NC in place, moist mucus membranes, trachea midline, no thyromegaly Chest/Pulm: No respiratory distress, symmetrical chest expansion, crackles noted in the BL lower lung rubio, wheezing/fibrosis noted in the upper lung rubio Cardiac: RRR, no murmurs noted Abdomen: Negative for ascites and bruising, normoactive bowel sounds, soft, non-tender to palpation throughout Musculoskeletal: No acute trauma, baseline right upper and lower extremity weakness from previous stroke Extremities: Radial, dorsalis pedis, and posterior tibial pulses are intact and symmetrical, +1 edema noted in the BL LE's Skin: Warm, dry, no rashes , lesions, or scars noted Neuro: Alert and oriented to person, place, month, year, and president, no focal defects, CN II-XII tested and intact, no tremors noted Psych: No acute distress, calm and cooperative during the exam Results & Data Results & Data Vital Signs (Past 12 Hours) Vital Signs Temp Pulse Pulse Resp BP BP Pulse Ox 03/02/23 11:15 86 21 179/93 H 100 03/02/23 11:00 86 22 100 03/02/23 11:00 179/93 H 03/02/23 10:30 88 19 100 03/02/23 10:30 165/86 H 03/02/23 10:08 91 H 20 03/02/23 10:10 90 03/02/23 09:58 88 19 99 03/02/23 09:48 100 03/02/23 09:48 03/02/23 09:49 37.4 C 88 19 142/78 H 100 O2 Del Method O2 Flow Rate 03/02/23 11:15 Nasal Cannula 5 03/02/23 11:00 03/02/23 11:00 03/02/23 10:30 03/02/23 10:30 03/02/23 10:08 03/02/23 10:10 03/02/23 09:58 Nasal Cannula 5 03/02/23 09:48 Nasal Cannula 5 03/02/23 09:48 Nasal Cannula 5 03/02/23 09:49 Nasal Cannula 5 Laboratory Results Abnormal lab results 03/02/23 03/02/23 03/02/23 Range/Units 10:16 10:16 10:16 WBC 15.13 H (4.8-10.8) K/ul MCHC 31.4 L (32.0-36.0) g/dL RDW Std Deviation 47.4 H (36.4-46.3) fL RDW Coeff of Ese 14.8 H (11.5-14.5) % Neut # (Auto) 11.08 H (1.40-6.50) K/uL [place] # (Auto) 1.07 H (0.11-0.59) K/uL Immature Gran # (Auto) 0.28 H (0.01-0.20) K/uL VBG pCO2 (38-50) mmHg BUN 24 H (6-23) mg/dl BUN/Creatinine Ratio 25.0 H (10-20) Troponin I High Sens 61.7 H* (0-14) pg/ml B-Natriuretic Peptide 104 H (0-100) pg/ml 03/02/23 Range/Units 10:16 WBC (4.8-10.8) K/ul MCHC (32.0-36.0) g/dL RDW Std Deviation (36.4-46.3) fL RDW Coeff of [place]se (11.5-14.5) % Neut # (Auto) (1.40-6.50) K/uL [place] # (Auto) (0.11-0.59) K/uL Immature Gran # (Auto) (0.01-0.20) K/uL VBG pCO2 52 H (38-50) mmHg BUN (6-23) mg/dl BUN/Creatinine Ratio (10-20) Troponin I High Sens (0-14) pg/ml B-Natriuretic Peptide (0-100) pg/ml Diagnostic Findings Chest X-Ray 03/02/23 09:55 XR chest 1V portable CLINICAL HISTORY: Dyspnea. COMPARISON STUDY: Chest radiograph August 10, [address] January 05, 2022. FINDINGS: No pneumothorax or pleural effusion is noted. Cardiomegaly is unchanged. Mediastinal contours are stable. Interstitial thickening is unchanged. No superimposed consolidation is identified. No evidence for pulmonary edema. IMPRESSION: Cardiomegaly. Stable interstitial thickening suggestive of interstitial lung disease. No acute findings. ACT 112: Negative or not required by law. Electronically signed by: Parminder Ayala M.D. 03/02/2023 10:43 AM ECG Additional Comments: Sinus rhythm with occasional Premature ventricular complexes Minimal voltage criteria for LVH, may be normal variant ( Mike product ) Inferior infarct (cited on or before 02-MAR-2023) Anterior infarct (cited on or before 02-MAR-2023) ST & T wave abnormality, consider lateral ischemia Abnormal ECG When compared with ECG of 20-JUN-2022 13:42, Premature ventricular complexes are now Present Code Status & VTE Plan Code Status DNR/DNI VTE Prophylaxis Plan VTE Prophylaxis will be ordered: Yes Supervising Physician Co-Signing Physician Notes Patient seen and examined, chart reviewed, case discussed with Prabhakar Leija PA-C and I agree with the assessment and plan as above except as otherwise noted Labs and images reviewed Marichuy is a 72-year-old female with a past medical history of interstitial lung disease on chronic prednisone with chronic respiratory failure on baseline 3-5 L of home oxygen, pulmonary hypertension, type II DM, past COVID, left bundle branch block, paroxysmal SVT, GERD, IBS, hypothyroidism who presents to the hospital for worsening cough, shortness of breath, and dyspnea on 5 L of oxygen. She has a mild leukocytosis on admission, respiratory bio fire is negative. CXR with chronic interstitial changes, does show signs of pulmonary edema/fluid overload. Patient has received IV Lasix and is noted to have a mildly elevated troponin. VBG 7.3 /41/29. Creatinine is 0.96. BNP is slightly elevated at 104. High sensitive troponin 61. EKG with QTc 452, rate 90, intraventricular conduction delay, sinus with similar morphology compared to 06/2022? Lateral ischemia. Patient did have a right heart catheterization 01/25/2023 which showed mild to moderate pulmonary hypertension and was started on sildenafil02/20/23. Last echo 01/19/2022 with normal ventricular systolic function, EF 60-65% and grade 1 diastolic dysfunction, abnormal septal motion consistent with left bundle branch block.At bedside visit patient is nondistressed, lung sounds are diminished. Heart rate is regular. Lungs are diminished, trace bibasilar crackles and trace end expiratory wheeze. Agree with admission for additional work-up and cardiac eval. Troponin is trended. Echo is pending. Patient clinically with evidence of pulmonary congestion and elevated BNP, Lasix 40 given and will continue to diurese and follow respiratory function. Patient does have a leukocytosis no superimposed consolidation noted on CXR. Procalcitonin is pending, reasonable to continue empiric antibiotic coverage at this time but narrow to azithromycin. Pulmonary following for ILD continue steroids dose reduced. PG Care Time/CCT Total # of Minutes Spent Total Time Spent with Patient: Total time spent is greater than 50% in coordination of care (as documented) at patient's floor/unit and/or counseling patient: Coding [place] [address] INT INP/OBS CARE 3/75MIN Patient Type Established Medical Decision Making High Complexity Diagnoses Dyspnea R06.00 Interstitial lung disease J84.9 Elevated troponin R77.8 Secondary pulmonary hypertension Diabetes mellitus type II, controlled E11.9 Post traumatic stress disorder F43.10 Hypothyroidism E03.9 GERD (gastroesophageal reflux disease) K21.9 Post-nasal drip R09.82
[2023-03-02] MEDS ORDERED: MONTELUKAST SODIUM 10 MG TABLET PO ONE (12:48)
[2023-03-02] MEDS ORDERED: predniSONE 20 MG TAB PO STA (12:53)
[2023-03-02 13:16] LABS: C Reactive Protein < 0.50 mg/dl (0-0.5)
[2023-03-02] MEDS ORDERED: GLUCOSE 10 TAB/TUBE PO PRN (13:19)
[2023-03-02] MEDS ORDERED: DEXTROSE 50% 50 ML SYRINGE IV PRN (13:19)
[2023-03-02] MEDS ORDERED: CARBOHYDRATES FOR HYPOGLYCEMIA PO PRN (13:19)
[2023-03-02] MEDS ORDERED: GLUCAGON FOR INJ 1 MG VIAL SQ PRN (13:19)
[2023-03-02] MEDS ORDERED: GLUCOSE 40% GEL 15 GM TUBE PO PRN (13:19)
[2023-03-02 13:43] LABS: Troponin I High Sensitivity 48.6 pg/ml (0-14)
[2023-03-02] MEDS: SODIUM CHLORIDE 0.65% NA SOLN 45 ML (OCEAN) SCH ×2 (13:59→21:01)
[2023-03-02] MEDS: ALBUT/IPRATROP 3MG/0.5MG NEB 3 ML VIAL NEB SCH ×2 (14:43→19:43)
[2023-03-02] MEDS ORDERED: ACETAMINOPHEN 325 MG TAB PO PRN (15:05)
[2023-03-02] MEDS ORDERED: traMADol HCL 50 MG TABLET PO PRN (15:05)
--- NOTE | 2023-03-02 15:32 | Electrocardiogram Report ---
Test Reason : Blood Pressure : / mmHG Vent. Rate : 090 BPM Atrial Rate : 090 BPM P-R Int : 166 ms QRS Dur : 120 ms QT Int : 370 ms P-R-T Axes : 014 -22 118 degrees QTc Int : 452 ms Sinus rhythm with occasional Premature ventricular complexes Left bundle branch block Abnormal ECG When compared with ECG of 20-JUN-2022 13:42, Premature ventricular complexes are now Present Confirmed by Derrell Hardin ([id number]) on 03/02/2023 3:31:53 PM Referred By: Confirmed By:Rashid Hardin
[2023-03-02] MEDS: SILDENAFIL CITRATE 20 MG TABLET PO SCH ×2 (16:47→21:00)
[2023-03-02] MEDS: ENOXAPARIN INJ 40 MG/0.4 ML SYR SQ SCH (16:48)
[2023-03-02] MEDS: INSULIN ASPART PER UNIT CHARGE SC SCH ×2 (18:05→20:52)
[2023-03-02] MEDS: TOPIRAMATE 100 MG TAB PO SCH (20:59)
[2023-03-02] MEDS: MYCOPHENOLATE MOFETIL 250 MG CAP PO SCH (20:59)
[2023-03-02] MEDS ORDERED: AMITRIPTYLINE HCL 25 MG TAB PO SCH (21:00)
[2023-03-02] MEDS: PANTOprazole 40 MG TAB PO SCH (21:00)
[2023-03-02] MEDS ORDERED: COUGH DROP (SUGAR FREE) LOZ 24 LOZ/1 BOX BUCCAL PRN (22:58)
[2023-03-03] MEDS: ENOXAPARIN INJ 40 MG/0.4 ML SYR SQ SCH (02:54)
[2023-03-03] MEDS ORDERED: ONDANSETRON INJ 2 MG/ML 2 ML VIAL IV PRN (05:18)
[2023-03-03] MEDS ORDERED: LEVOTHYROXINE SODIUM 137 MCG TABLET PO SCH (06:30)
[2023-03-03] MEDS: ALBUT/IPRATROP 3MG/0.5MG NEB 3 ML VIAL NEB SCH ×2 (07:26→12:08)
--- NOTE | 2023-03-03 07:45 | Hospitalist Progress Note ---
Date of Service March 03, 2023 Assessment & Plan (1) Dyspnea: Plan: -Admit to med/tele on cont pulse oximetry -Currently stable on baseline 3L NC -At the time the patient's acute on chronic dyspnea is likely multifactorial including her chronic lung disease likely being exacerbated by untreated seasonal allergies, known pulmonary HTN, and possible CHF -Full respiratory biofire is negative, low suspicion for bacterial pna at this time but will follow procal -Given a dose of ceftriaxone and azithromycin in the ED, will continue with Azithromycin for now to cover atypicals, QTc WNL -Continue scheduled DuoNebs for now, incentive spirometry, flutter therapy, prn O2 to keep SpO2 at or above 92% -BNP today is 108, crackles noted on lung exam, will get TTE for further evaluation -Do not think that her dyspnea is related to ACS at this time as she is without chest pain or acute ECG changes, low suspicion for PE at this time as she is stable on baseline O2, hemodynamically stable, and without chest pain -S/P 40 mg IV lasix in the ED, will hold additional for now until we get the echo results -BL SCD's and SQ lovenox for DVT PPX -AM CBC, CMP, Mag (2) Interstitial lung disease: Plan: -Per Dr. Romero: >Continue with 20 mg Prednisone daily for now to start weaning her back to her baseline 10 mg PO daily >Continue BID Cellcept >Agrees with continuing Azithromycin for now >Continue TID sildenafil >Agrees with heart failure workup -Pulmonology consulted and will continue to follow (3) Elevated troponin: Plan: -Initial high sen trop elevated at 68 -Patient is asymptomatic and without acute ST segment or T-wave changes -Likely due to demand, will continue to trend trop and monitor on tele -Will FU on on TTE (4) Secondary pulmonary hypertension: Plan: -Continue sildenafil (5) Diabetes mellitus type II, controlled: Plan: -Not currently on medical regimen as last A1c in October was 5.4 -For now will monitor BSG ACHS, goal is 110-160 on steroids -Start with CF of 50 ACHS for now -DM II and low sodium diet for now (6) Post traumatic stress disorder: Plan: -Continue Topamax, lamictal, and buspar (7) Hypothyroidism: Plan: -continue levothyroxine (8) GERD (gastroesophageal reflux disease): Plan: -continue protonix (9) Post-nasal drip: Plan: -Starting her on Singulair and Saline nasal spray Plan The patient was discussed with Dr. Tai at the time of the admission Admission and Anticipated Discharge Date Admission Date: March 02, 2023 Results & Data Results & Data Vital Signs (Past 12 Hours) Vital Signs Temp Pulse Pulse Resp BP Pulse Ox O2 Del Method 03/03/23 07:17 80 03/03/23 02:41 36.5 C 77 20 138/83 95 Nasal Cannula 03/02/23 22:12 90 03/02/23 22:50 37.1 C 85 18 111/72 95 Nasal Cannula 03/02/23 21:00 Nasal Cannula 03/02/23 19:43 91 H 16 97 Nasal Cannula O2 Flow Rate 03/03/23 07:17 03/03/23 02:41 3 03/02/23 22:12 03/02/23 22:50 3 03/02/23 21:00 3 03/02/23 19:43 3 Laboratory Results 03/03/23 03/02/23 03/02/23 Range/Units 01:56 19:44 13:55 WBC (4.8-10.8) K/ul RBC (4.20-5.40) M/uL Hgb (12.0-16.0) g/dl Hct (37.0-47.0) % MCV (80.0-100.0) fL MCH (25.0-34.0) pg MCHC (32.0-36.0) g/dL RDW Std Deviation (36.4-46.3) fL RDW Coeff of Ese (11.5-14.5) % Plt Count (130-400) K/uL MPV (9.4-12.4) fL Immature Gran % (Auto) % Neut % (Auto) % Lymph % (Auto) % [place] % (Auto) % Eos % (Auto) % Baso % (Auto) % Neut # (Auto) (1.40-6.50) K/uL Lymph # (Auto) (1.2-3.4) K/uL [place] # (Auto) (0.11-0.59) K/uL Eos # (Auto) (0-0.50) K/uL Baso # (Auto) (0-0.2) K/uL Immature Gran # (Auto) (0.01-0.20) K/uL PT (9.0-12.0) Seconds INR (0.9-1.1) APTT (21.0-31.0) Seconds PTT Ratio VBG pH (7.36-7.41) VBG pCO2 (38-50) mmHg VBG pO2 mmHg VBG HCO3 mmol/L VBG O2 Saturation % VBG Base Excess mEq/L Sodium (136-145) mmol/L Potassium (3.5-5.1) mmol/L Chloride (98-107) mmol/L Carbon Dioxide (21-32) mmol/L Anion Gap (3-11) BUN (6-23) mg/dl Creatinine (0.6-1.2) mg/dl Est Cr Clr Drug Dosing ml/min Est GFR ( Amer) ml/min Est GFR (Non-Af Amer) ml/min BUN/Creatinine Ratio (10-20) Glucose (70-99(Fasting)) mg/dl POC Glucose 111 H (70-99) mg/dl Lactate (0.4-2.0) mmol/L Calcium (8.6-10.3) mg/dl Magnesium (1.7-2.4) mg/dl Total Bilirubin (0.2-1.0) mg/dl AST (13-39) U/L ALT (7-52) U/L Alkaline Phosphatase (34-104) U/L Troponin I High Sens 54.2 H* 55.6 H* (0-14) pg/ml C-Reactive Protein (0-0.5) mg/dl B-Natriuretic Peptide (0-100) pg/ml Total Protein (6.0-8.3) gm/dl Albumin (3.4-5.0) gm/dl Globulin (2.5-4.0) gm/dl Albumin/Globulin Ratio (0.9-2) Procalcitonin (0-0.5) ng/ml Urine Color Urine Appearance (Clear) Urine pH (4.5-7.5) Ur Specific [place] (1.000-1.030) Urine Protein (Negative) Urine Glucose (UA) (Negative) Urine Ketones (Negative) Urine Blood (Negative) Urine Nitrite (Negative) Urine Bilirubin (Negative) Urine Urobilinogen (Negative) Ur Leukocyte Esterase (Negative) Adenovirus (PCR) (NotDetected) B. pertussis DNA (PCR) (NotDetected) B.parapertussis DNA PCR (NotDetected) C. pneumoniae DNA (PCR) (NotDetected) Coronavirus OC43 (PCR) (NotDetected) Coronavirus HKU1 (PCR) (NotDetected) Coronavirus 229E (PCR) (NotDetected) SARS-CoV-2 (PCR) (NotDetected) Coronavirus NL63 (PCR) (NotDetected) Human Metapneumovir PCR (NotDetected) Influenza Type A (PCR) (NotDetected) Influenza Type B (PCR) (NotDetected) M. pneumoniae (PCR) (NotDetected) Parainfluenza 1 (PCR) (NotDetected) Parainfluenza 2 (PCR) (NotDetected) Parainfluenza 3 (PCR) (NotDetected) Parainfluenza 4 (PCR) (NotDetected) RSV (PCR) (NotDetected) Entero/Rhino (PCR) (NotDetected) 03/02/23 03/02/23 03/02/23 Range/Units 12:45 11:32 10:16 WBC (4.8-10.8) K/ul RBC (4.20-5.40) M/uL Hgb (12.0-16.0) g/dl Hct (37.0-47.0) % MCV (80.0-100.0) fL MCH (25.0-34.0) pg MCHC (32.0-36.0) g/dL RDW Std Deviation (36.4-46.3) fL RDW Coeff of Ese (11.5-14.5) % Plt Count (130-400) K/uL MPV (9.4-12.4) fL Immature Gran % (Auto) % Neut % (Auto) % Lymph % (Auto) % [place] % (Auto) % Eos % (Auto) % Baso % (Auto) % Neut # (Auto) (1.40-6.50) K/uL Lymph # (Auto) (1.2-3.4) K/uL [place] # (Auto) (0.11-0.59) K/uL Eos # (Auto) (0-0.50) K/uL Baso # (Auto) (0-0.2) K/uL Immature Gran # (Auto) (0.01-0.20) K/uL PT (9.0-12.0) Seconds INR (0.9-1.1) APTT (21.0-31.0) Seconds PTT Ratio VBG pH (7.36-7.41) VBG pCO2 (38-50) mmHg VBG pO2 mmHg VBG HCO3 mmol/L VBG O2 Saturation % VBG Base Excess mEq/L Sodium (136-145) mmol/L Potassium (3.5-5.1) mmol/L Chloride (98-107) mmol/L Carbon Dioxide (21-32) mmol/L Anion Gap (3-11) BUN (6-23) mg/dl Creatinine (0.6-1.2) mg/dl Est Cr Clr Drug Dosing ml/min Est GFR ( Amer) ml/min Est GFR (Non-Af Amer) ml/min BUN/Creatinine Ratio (10-20) Glucose (70-99(Fasting)) mg/dl POC Glucose (70-99) mg/dl Lactate (0.4-2.0) mmol/L Calcium (8.6-10.3) mg/dl Magnesium (1.7-2.4) mg/dl Total Bilirubin (0.2-1.0) mg/dl AST (13-39) U/L ALT (7-52) U/L Alkaline Phosphatase (34-104) U/L Troponin I High Sens 48.6 H D (0-14) pg/ml C-Reactive Protein < 0.50 (0-0.5) mg/dl B-Natriuretic Peptide (0-100) pg/ml Total Protein (6.0-8.3) gm/dl Albumin (3.4-5.0) gm/dl Globulin (2.5-4.0) gm/dl Albumin/Globulin Ratio (0.9-2) Procalcitonin < 0.05 (0-0.5) ng/ml Urine Color Yellow Urine Appearance Clear (Clear) Urine pH 6.5 (4.5-7.5) Ur Specific [place] 1.017 (1.000-1.030) Urine Protein Negative (Negative) Urine Glucose (UA) Negative (Negative) Urine Ketones Negative (Negative) Urine Blood Negative (Negative) Urine Nitrite Negative (Negative) Urine Bilirubin Negative (Negative) Urine Urobilinogen Negative (Negative) Ur Leukocyte Esterase Negative (Negative) Adenovirus (PCR) (NotDetected) B. pertussis DNA (PCR) (NotDetected) B.parapertussis DNA PCR (NotDetected) C. pneumoniae DNA (PCR) (NotDetected) Coronavirus OC43 (PCR) (NotDetected) Coronavirus HKU1 (PCR) (NotDetected) Coronavirus 229E (PCR) (NotDetected) SARS-CoV-2 (PCR) (NotDetected) Coronavirus NL63 (PCR) (NotDetected) Human Metapneumovir PCR (NotDetected) Influenza Type A (PCR) (NotDetected) Influenza Type B (PCR) (NotDetected) M. pneumoniae (PCR) (NotDetected) Parainfluenza 1 (PCR) (NotDetected) Parainfluenza 2 (PCR) (NotDetected) Parainfluenza 3 (PCR) (NotDetected) Parainfluenza 4 (PCR) (NotDetected) RSV (PCR) (NotDetected) Entero/Rhino (PCR) (NotDetected) 03/02/23 03/02/23 03/02/23 Range/Units 10:16 10:16 10:16 WBC (4.8-10.8) K/ul RBC (4.20-5.40) M/uL Hgb (12.0-16.0) g/dl Hct (37.0-47.0) % MCV (80.0-100.0) fL MCH (25.0-34.0) pg MCHC (32.0-36.0) g/dL RDW Std Deviation (36.4-46.3) fL RDW Coeff of Ese (11.5-14.5) % Plt Count (130-400) K/uL MPV (9.4-12.4) fL Immature Gran % (Auto) % Neut % (Auto) % Lymph % (Auto) % [place] % (Auto) % Eos % (Auto) % Baso % (Auto) % Neut # (Auto) (1.40-6.50) K/uL Lymph # (Auto) (1.2-3.4) K/uL [place] # (Auto) (0.11-0.59) K/uL Eos # (Auto) (0-0.50) K/uL Baso # (Auto) (0-0.2) K/uL Immature Gran # (Auto) (0.01-0.20) K/uL PT (9.0-12.0) Seconds INR (0.9-1.1) APTT (21.0-31.0) Seconds PTT Ratio VBG pH 7.37 (7.36-7.41) VBG pCO2 52 H (38-50) mmHg VBG pO2 41 mmHg VBG HCO3 29 mmol/L VBG O2 Saturation < 60.0 % VBG Base Excess 2.8 mEq/L Sodium (136-145) mmol/L Potassium (3.5-5.1) mmol/L Chloride (98-107) mmol/L Carbon Dioxide (21-32) mmol/L Anion Gap (3-11) BUN (6-23) mg/dl Creatinine (0.6-1.2) mg/dl Est Cr Clr Drug Dosing ml/min Est GFR ( Amer) ml/min Est GFR (Non-Af Amer) ml/min BUN/Creatinine Ratio (10-20) Glucose (70-99(Fasting)) mg/dl POC Glucose (70-99) mg/dl Lactate 1.5 (0.4-2.0) mmol/L Calcium (8.6-10.3) mg/dl Magnesium (1.7-2.4) mg/dl Total Bilirubin (0.2-1.0) mg/dl AST (13-39) U/L ALT (7-52) U/L Alkaline Phosphatase (34-104) U/L Troponin I High Sens (0-14) pg/ml C-Reactive Protein (0-0.5) mg/dl B-Natriuretic Peptide (0-100) pg/ml Total Protein (6.0-8.3) gm/dl Albumin (3.4-5.0) gm/dl Globulin (2.5-4.0) gm/dl Albumin/Globulin Ratio (0.9-2) Procalcitonin (0-0.5) ng/ml Urine Color Urine Appearance (Clear) Urine pH (4.5-7.5) Ur Specific [place] (1.000-1.030) Urine Protein (Negative) Urine Glucose (UA) (Negative) Urine Ketones (Negative) Urine Blood (Negative) Urine Nitrite (Negative) Urine Bilirubin (Negative) Urine Urobilinogen (Negative) Ur Leukocyte Esterase (Negative) Adenovirus (PCR) Not Detected (NotDetected) B. pertussis DNA (PCR) Not Detected (NotDetected) B.parapertussis DNA PCR Not Detected (NotDetected) C. pneumoniae DNA (PCR) Not Detected (NotDetected) Coronavirus OC43 (PCR) Not Detected (NotDetected) Coronavirus HKU1 (PCR) Not Detected (NotDetected) Coronavirus 229E (PCR) Not Detected (NotDetected) SARS-CoV-2 (PCR) Not Detected (NotDetected) Coronavirus NL63 (PCR) Not Detected (NotDetected) Human Metapneumovir PCR Not Detected (NotDetected) Influenza Type A (PCR) Not Detected (NotDetected) Influenza Type B (PCR) Not Detected (NotDetected) M. pneumoniae (PCR) Not Detected (NotDetected) Parainfluenza 1 (PCR) Not Detected (NotDetected) Parainfluenza 2 (PCR) Not Detected (NotDetected) Parainfluenza 3 (PCR) Not Detected (NotDetected) Parainfluenza 4 (PCR) Not Detected (NotDetected) RSV (PCR) Not Detected (NotDetected) Entero/Rhino (PCR) Not Detected (NotDetected) 03/02/23 03/02/23 03/02/23 Range/Units 10:16 10:16 10:16 WBC (4.8-10.8) K/ul RBC (4.20-5.40) M/uL Hgb (12.0-16.0) g/dl Hct (37.0-47.0) % MCV (80.0-100.0) fL MCH (25.0-34.0) pg MCHC (32.0-36.0) g/dL RDW Std Deviation (36.4-46.3) fL RDW Coeff of Ese (11.5-14.5) % Plt Count (130-400) K/uL MPV (9.4-12.4) fL Immature Gran % (Auto) % Neut % (Auto) % Lymph % (Auto) % [place] % (Auto) % Eos % (Auto) % Baso % (Auto) % Neut # (Auto) (1.40-6.50) K/uL Lymph # (Auto) (1.2-3.4) K/uL [place] # (Auto) (0.11-0.59) K/uL Eos # (Auto) (0-0.50) K/uL Baso # (Auto) (0-0.2) K/uL Immature Gran # (Auto) (0.01-0.20) K/uL PT 10.5 (9.0-12.0) Seconds INR 1.0 (0.9-1.1) APTT 24.4 (21.0-31.0) Seconds PTT Ratio 0.9 VBG pH (7.36-7.41) VBG pCO2 (38-50) mmHg VBG pO2 mmHg VBG HCO3 mmol/L VBG O2 Saturation % VBG Base Excess mEq/L Sodium 140 (136-145) mmol/L Potassium 3.7 (3.5-5.1) mmol/L Chloride 106 (98-107) mmol/L Carbon Dioxide 28 (21-32) mmol/L Anion Gap 6 (3-11) BUN 24 H (6-23) mg/dl Creatinine 0.96 (0.6-1.2) mg/dl Est Cr Clr Drug Dosing 57.7 ml/min Est GFR ( Amer) 68.0 ml/min Est GFR (Non-Af Amer) 58.7 ml/min BUN/Creatinine Ratio 25.0 H (10-20) Glucose 98 (70-99(Fasting)) mg/dl POC Glucose (70-99) mg/dl Lactate (0.4-2.0) mmol/L Calcium 8.8 (8.6-10.3) mg/dl Magnesium 1.9 (1.7-2.4) mg/dl Total Bilirubin 0.4 (0.2-1.0) mg/dl AST 13 (13-39) U/L ALT 13 (7-52) U/L Alkaline Phosphatase 83 (34-104) U/L Troponin I High Sens 61.7 H* (0-14) pg/ml C-Reactive Protein (0-0.5) mg/dl B-Natriuretic Peptide 104 H (0-100) pg/ml Total Protein 6.3 (6.0-8.3) gm/dl Albumin 3.5 (3.4-5.0) gm/dl Globulin 2.8 (2.5-4.0) gm/dl Albumin/Globulin Ratio 1.3 (0.9-2) Procalcitonin (0-0.5) ng/ml Urine Color Urine Appearance (Clear) Urine pH (4.5-7.5) Ur Specific [place] (1.000-1.030) Urine Protein (Negative) Urine Glucose (UA) (Negative) Urine Ketones (Negative) Urine Blood (Negative) Urine Nitrite (Negative) Urine Bilirubin (Negative) Urine Urobilinogen (Negative) Ur Leukocyte Esterase (Negative) Adenovirus (PCR) (NotDetected) B. pertussis DNA (PCR) (NotDetected) B.parapertussis DNA PCR (NotDetected) C. pneumoniae DNA (PCR) (NotDetected) Coronavirus OC43 (PCR) (NotDetected) Coronavirus HKU1 (PCR) (NotDetected) Coronavirus 229E (PCR) (NotDetected) SARS-CoV-2 (PCR) (NotDetected) Coronavirus NL63 (PCR) (NotDetected) Human Metapneumovir PCR (NotDetected) Influenza Type A (PCR) (NotDetected) Influenza Type B (PCR) (NotDetected) M. pneumoniae (PCR) (NotDetected) Parainfluenza 1 (PCR) (NotDetected) Parainfluenza 2 (PCR) (NotDetected) Parainfluenza 3 (PCR) (NotDetected) Parainfluenza 4 (PCR) (NotDetected) RSV (PCR) (NotDetected) Entero/Rhino (PCR) (NotDetected) 03/02/23 Range/Units 10:16 WBC 15.13 H (4.8-10.8) K/ul RBC 4.62 (4.20-5.40) M/uL Hgb 12.7 (12.0-16.0) g/dl Hct 40.5 (37.0-47.0) % MCV 87.7 (80.0-100.0) fL MCH 27.5 (25.0-34.0) pg MCHC 31.4 L (32.0-36.0) g/dL RDW Std Deviation 47.4 H (36.4-46.3) fL RDW Coeff of Ese 14.8 H (11.5-14.5) % Plt Count 212 (130-400) K/uL MPV 10.9 (9.4-12.4) fL Immature Gran % (Auto) 1.9 % Neut % (Auto) 73.2 % Lymph % (Auto) 13.9 % [place] % (Auto) 7.1 % Eos % (Auto) 3.1 % Baso % (Auto) 0.8 % Neut # (Auto) 11.08 H (1.40-6.50) K/uL Lymph # (Auto) 2.11 (1.2-3.4) K/uL [place] # (Auto) 1.07 H (0.11-0.59) K/uL Eos # (Auto) 0.47 (0-0.50) K/uL Baso # (Auto) 0.12 (0-0.2) K/uL Immature Gran # (Auto) 0.28 H (0.01-0.20) K/uL PT (9.0-12.0) Seconds INR (0.9-1.1) APTT (21.0-31.0) Seconds PTT Ratio VBG pH (7.36-7.41) VBG pCO2 (38-50) mmHg VBG pO2 mmHg VBG HCO3 mmol/L VBG O2 Saturation % VBG Base Excess mEq/L Sodium (136-145) mmol/L Potassium (3.5-5.1) mmol/L Chloride (98-107) mmol/L Carbon Dioxide (21-32) mmol/L Anion Gap (3-11) BUN (6-23) mg/dl Creatinine (0.6-1.2) mg/dl Est Cr Clr Drug Dosing ml/min Est GFR ( Amer) ml/min Est GFR (Non-Af Amer) ml/min BUN/Creatinine Ratio (10-20) Glucose (70-99(Fasting)) mg/dl POC Glucose (70-99) mg/dl Lactate (0.4-2.0) mmol/L Calcium (8.6-10.3) mg/dl Magnesium (1.7-2.4) mg/dl Total Bilirubin (0.2-1.0) mg/dl AST (13-39) U/L ALT (7-52) U/L Alkaline Phosphatase (34-104) U/L Troponin I High Sens (0-14) pg/ml C-Reactive Protein (0-0.5) mg/dl B-Natriuretic Peptide (0-100) pg/ml Total Protein (6.0-8.3) gm/dl Albumin (3.4-5.0) gm/dl Globulin (2.5-4.0) gm/dl Albumin/Globulin Ratio (0.9-2) Procalcitonin (0-0.5) ng/ml Urine Color Urine Appearance (Clear) Urine pH (4.5-7.5) Ur Specific [place] (1.000-1.030) Urine Protein (Negative) Urine Glucose (UA) (Negative) Urine Ketones (Negative) Urine Blood (Negative) Urine Nitrite (Negative) Urine Bilirubin (Negative) Urine Urobilinogen (Negative) Ur Leukocyte Esterase (Negative) Adenovirus (PCR) (NotDetected) B. pertussis DNA (PCR) (NotDetected) B.parapertussis DNA PCR (NotDetected) C. pneumoniae DNA (PCR) (NotDetected) Coronavirus OC43 (PCR) (NotDetected) Coronavirus HKU1 (PCR) (NotDetected) Coronavirus 229E (PCR) (NotDetected) SARS-CoV-2 (PCR) (NotDetected) Coronavirus NL63 (PCR) (NotDetected) Human Metapneumovir PCR (NotDetected) Influenza Type A (PCR) (NotDetected) Influenza Type B (PCR) (NotDetected) M. pneumoniae (PCR) (NotDetected) Parainfluenza 1 (PCR) (NotDetected) Parainfluenza 2 (PCR) (NotDetected) Parainfluenza 3 (PCR) (NotDetected) Parainfluenza 4 (PCR) (NotDetected) RSV (PCR) (NotDetected) Entero/Rhino (PCR) (NotDetected) Diagnostic Findings Chest X-Ray 03/02/23 09:55 XR chest 1V portable CLINICAL HISTORY: Dyspnea. COMPARISON STUDY: Chest radiograph August 10, [address] January 05, 2022. FINDINGS: No pneumothorax or pleural effusion is noted. Cardiomegaly is unchanged. Mediastinal contours are stable. Interstitial thickening is unchanged. No superimposed consolidation is identified. No evidence for pulmonary edema. IMPRESSION: Cardiomegaly. Stable interstitial thickening suggestive of interstitial lung disease. No acute findings. ACT 112: Negative or not required by law. Electronically signed by: Parminder Ayala M.D. 03/02/2023 10:43 AM PG Care Time/CCT Total # of Minutes Spent Total Time Spent with Patient: Total time spent is greater than 50% in coordination of care (as documented) at patient's floor/unit and/or counseling patient: Coding Diagnoses Dyspnea R06.00 Interstitial lung disease J84.9 Elevated troponin R77.8 Secondary pulmonary hypertension Diabetes mellitus type II, controlled E11.9 Post traumatic stress disorder F43.10 Hypothyroidism E03.9 GERD (gastroesophageal reflux disease) K21.9 Post-nasal drip R09.82
[2023-03-03 08:26] LABS: Basophils # (auto) 0.07 K/uL (0-0.2); Basophils % (auto) 0.6 %; Eosinophils # (auto) 0.14 K/uL (0-0.50); Eosinophils % (auto) 1.1 %; Hematocrit (blood only) 42.2 % (37.0-47.0); Hemoglobin 13.5 g/dl (12.0-16.0); Immature Granulocytes # (auto) 0.18 K/uL (0.01-0.20); Immature Granulocytes % (auto) 1.4 %; Lymphocytes # (auto) 2.21 K/uL (1.2-3.4); Lymphocytes % (auto) 17.5 %; Mean Corpuscular Hemoglobin 28.2 pg (25.0-34.0); Mean Corpuscular Volume 88.1 fL (80.0-100.0); Monocytes # (auto) 0.97 K/uL (0.11-0.59); Monocytes % (auto) 7.7 %; Neutrophils # (auto) 9.06 K/uL (1.40-6.50); Neutrophils % (auto) 71.7 %; Platelet Count 228 K/uL (130-400); RDW Coefficient of Variation 14.6 % (11.5-14.5); RDW Standard Deviation 47.3 fL (36.4-46.3); Red Blood Count 4.79 M/uL (4.20-5.40); White Blood Count 12.63 K/ul (4.8-10.8)
[2023-03-03 08:49] LABS: Albumin Globulin Ratio 1.2 (0.9-2); Albumin Level 3.8 gm/dl (3.4-5.0); BUN Creatinine Ratio 33.3 (10-20); Bilirubin,Total 0.4 mg/dl (0.2-1.0); Calcium 9.6 mg/dl (8.6-10.3); Creatinine Clr Calc Pharmacy 61.5 ml/min; Est GFR (African American) 76.6 ml/min; Est GFR (Non-African American) 66.1 ml/min; Globulin 3.1 gm/dl (2.5-4.0); Magnesium 2.2 mg/dl (1.7-2.4); Potassium 3.4 mmol/L (3.5-5.1); Total Protein 6.9 gm/dl (6.0-8.3)
[2023-03-03] MEDS: INSULIN ASPART PER UNIT CHARGE SC SCH ×2 (08:57→11:48)
[2023-03-03] MEDS: SODIUM CHLORIDE 0.65% NA SOLN 45 ML (OCEAN) SCH ×2 (08:57→13:11)
[2023-03-03] MEDS: TOPIRAMATE 100 MG TAB PO SCH (08:59)
[2023-03-03] MEDS ORDERED: lamoTRIgine 100 MG TAB PO SCH (09:00)
[2023-03-03] MEDS ORDERED: AZITHROMYCIN 250 MG TAB PO SCH ×2 (09:00→12:15)
[2023-03-03] MEDS: MYCOPHENOLATE MOFETIL 250 MG CAP PO SCH (09:00)
[2023-03-03] MEDS ORDERED: GABAPENTIN 100 MG CAP PO SCH (09:00)
[2023-03-03] MEDS: PANTOprazole 40 MG TAB PO SCH (09:00)
[2023-03-03] MEDS ORDERED: predniSONE 20 MG TAB PO SCH (09:00)
[2023-03-03] MEDS ORDERED: busPIRone 5 MG TAB PO SCH (09:00)
[2023-03-03] MEDS: SILDENAFIL CITRATE 20 MG TABLET PO SCH ×2 (09:01→13:11)
[2023-03-03] MEDS ORDERED: POTASSIUM CHLORIDE CRTAB 20 MEQ TABCR PO STA (09:04)
[2023-03-03 09:19] LABS: Ferritin 22.7 ng/ml (8-388)
[2023-03-03] MEDS ORDERED: ALBUT/IPRATROP 3MG/0.5MG NEB 3 ML VIAL NEB PRN (11:11)
--- NOTE | 2023-03-03 11:23 | Pulmonology Progress Note ---
Date of Service March 03, 2023 Assessment & Plan (1) Interstitial lung disease: Plan: CRP and Pro-Talon unremarkable. Please decrease her prednisone dose to 10 mg a day. Continue CellCept at 500 mg twice a day. We will follow-up in the pulmonary clinic. She has PFTs scheduled for later this month. (2) On home oxygen therapy: Plan: Continue supplemental oxygen to maintain saturations above 89%. (3) Acute dyspnea: Plan: Multifactorial due to pulmonary hypertension, ILD and deconditioning. (4) Pulmonary edema: Plan: Responded well to 40 mg IV Lasix yesterday. Please discharge the patient with 20 mg p.o. Lasix every other day. (5) Secondary pulmonary hypertension: Plan: Continue sildenafil 20 mg, 3 times a day. Repeat echo in 2 to 3 months. Plan Okay to discharge home today. Discussed with hospitalist FAVIO. Admission and Anticipated Discharge Date Admission Date: March 02, 2023 Subjective Feeling much better today. Slept well. Shortness of breath is back to baseline. She feels that more of her symptoms are sinus related. She has discomfort in the back of her throat. Denies chest pain or shortness of breath at rest. Ambulated today with oxygen desaturated to 89% on 3 L which is baseline for her. Review of Systems Review of Systems: All systems reviewed & are unremarkable except as noted in HPI & below Physical Exam Physical Exam: Constitutional: Overweight appearing female in no apparent distress. Nasal cannula in place. Eyes: Pupils are equal round and reactive to light. Conjunctivae are normal. Anicteric sclera. Ears nose, mouth and throat: Obvious deformity seen. Nasal cannula in place. Neck: Trachea is midline. Visual inspection is normal. Respiratory: Mild crackles noted bibasilarly. No wheezes. Cardiovascular: Regular rate and rhythm. No murmurs. No edema. Musculoskeletal: No cyanosis. Patient is able to move all extremities. Skin: No rashes, warm dry and intact. Neurologic: No obvious focal neurological deficits seen. Psychiatric: Alert and oriented x3 with a euthymic affect. Results & Data Results & Data Vital Signs (Past 12 Hours) Vital Signs Temp Pulse Pulse Resp BP Pulse Ox O2 Del Method 03/03/23 08:43 Nasal Cannula 03/03/23 07:54 81 18 99 Nasal Cannula 03/03/23 07:17 80 03/03/23 02:41 36.5 C 77 20 138/83 95 Nasal Cannula O2 Flow Rate 03/03/23 08:43 3 03/03/23 07:54 3 03/03/23 07:17 03/03/23 02:41 3 PG Care Time/CCT Total # of Minutes Spent Total Time Spent with Patient: Total time spent is greater than 50% in coordination of care (as documented) at patient's floor/unit and/or counseling patient: Coding Level of Care Code 52115 SUB INP/OBS CARE 2/35MIN Diagnoses Interstitial lung disease J84.9 On home oxygen therapy Z99.81 Acute dyspnea R06.00 Pulmonary edema J81.1 Secondary pulmonary hypertension
--- NOTE | 2023-03-03 12:07 | XCELERA ---
[id number]
--- NOTE | 2023-03-03 12:15 | Discharge Summary ---
Date of Service March 03, 2023 Admission HPI Per Admitting Provider Marichuy is a 72 year old female with a PMH significant for collagen vascular disease ILD on 3L NC chronic oxygen therapy (Follows with Dr. Romero), pulmonary HTN, Paroxysmal SVT, DM II, previous CVA, GERD, bipolar disorder, and hypothyroidism who presented to the [facility] ED on 03/02/23 for increased SOB, increased O2 demands, increased cough, and nausea. In the ED the patient was noted to be stable on 5L NC, otherwise vitals were stable. Labs were significant for a leukocytosis of 15 with left shift of 11, increased immature granulocytes at 0.28, initial high sen trop of 61 with BNP of 104 (up from 67 as of 12/2021), and full respiratory biofire negative. Chest xray was read as Cardiomegaly. Stable interstitial thickening suggestive of interstitial lung disease. No acute findings. Prior to admission the patient was a dose of Ceftriaxone, Azithromycin, and 40 mg IV lasix. At the time of the exam the patient was sitting in bed in no acute distress. We were able to turn her O2 down to 3L NC and she remained stable throughout. Since seeing Dr. Romero on 02/20 she has been experiencing increased congestion, post nasal drip, and dry cough. She felt as though he chronic SOB had progressed during this time and had increased her O2 to 5L NC from her baseline of 3L. She denies recent fevers, increased sputum production, change in sputum color, abd pain, nausea, vomiting, dysuria, hematuria, diarrhea, melena, and recent trauma. She had 1 min of 3/10 chest tightness this am while sitting in her recliner, this resolved spontaneously and she has been chest discomfort free since. She has noticed increased BL LE swelling. I saw the patient with Dr. Romero at the time of admission. He explained that he instructed her to take 30 mg PO prednisone daily from her typical dose fo 10 mg daily for a week after her last visit. She was still taking 30 mg daily as of yesterday and did not have her prednisone yet today. She has continued to take her Cellcept as prescribed without side effects. Due to the patient having a recent Right heart catheterization with mild to moderate pulm hypertension Dr. Romero had started her on Sildenafil, which she has been taking without side effects. She has noticed increased sinus congestion over the past week with her other symptoms. Please refer to Dr. Tai's attestation for any changes to the treatment plan Admission Exam Per Admitting Provider Physical Exam: General:In no acute distress, stated age, chronically ill appearing HEENT:Normocephalic, atraumatic, no scleral icterus, pupils around round, symmetrical, and reactive to light, NC in place, moist mucus membranes, trachea midline, no thyromegaly Chest/Pulm:No respiratory distress, symmetrical chest expansion, crackles noted in the BL lower lung rubio, wheezing/fibrosis noted in the upper lung rubio Cardiac:RRR, no murmurs noted Abdomen:Negative for ascites and bruising, normoactive bowel sounds, soft, non-tender to palpation throughout Musculoskeletal:No acute trauma, baseline right upper and lower extremity weakness from previous stroke Extremities:Radial, dorsalis pedis, and posterior tibial pulses are intact and symmetrical, +1 edema noted in the BL LE's Skin:Warm, dry, no rashes , lesions, or scars noted Neuro:Alert and oriented to person, place, month, year, and president, no focal defects, CN II-XII tested and intact, no tremors noted Psych:No acute distress, calm and cooperative during the exam Principal Diagnosis Interstitial Lung Disease, Volume Overload Discharge Exam General: WD/chronically ill appearing female sitting up in bed, eating lunch, NAD HEENT: head normocephalic, atraumatic, mmm, trachea midline Resp: mild crackles bilaterally, no wheezing, on 3L Nc SpO2 99% CV; regular rate/rhythm, no significant m/r/g, trace pedal edema, calves nontender GI: +BS, soft/NT MSK/Neuro: no focal deficit, no slurred speech, CN intact grossly Skin: warm, perfused Psych: AOx3 , anxious at times Discharge Data Allergies Allergy/AdvReac Type Severity Reaction Status Date / Time latex Allergy Intermediate Rash, hand Verified 03/02/23 11:40 swelling Sulfa (Sulfonamide Allergy Intermediate Rash Verified 03/02/23 11:40 Antibiotics) Penicillins Allergy Unknown Unknown Verified 03/02/23 11:40 reaction (as teenager) morphine AdvReac Intermediate Anxiety Verified 03/02/23 11:40 Consultations 03/02/23 12:27 ED Decision to Admit Stat 03/02/23 13:17 Consult Pulmonology Routine Ordered Studies Chest X-Ray 03/02/23 09:55 XR chest 1V portable CLINICAL HISTORY: Dyspnea. COMPARISON STUDY: Chest radiograph August 10, [address] January 05, 2022. FINDINGS: No pneumothorax or pleural effusion is noted. Cardiomegaly is unchanged. Mediastinal contours are stable. Interstitial thickening is unchanged. No superimposed consolidation is identified. No evidence for pulmonary edema. IMPRESSION: Cardiomegaly. Stable interstitial thickening suggestive of interstitial lung disease. No acute findings. ACT 112: Negative or not required by law. Electronically signed by: Parminder Ayala M.D. 03/02/2023 10:43 AM ECHOCARDIOGRAM -- LV systolic function is normal. Mild concentric LVH. Grade I diastolic dysfunction. Aortic valve sclerosis mild, without significant aortic valvular stenosis. RVSP is elevated 30-40mmHg Hospital Course (1) Dyspnea: Up to 5L on admission, titrated to 3L. Cardiomegaly. Stable interstitial thickening suggestive of interstitial lung disease. No acute findings. BNP slight elevation 108 Suspect excessive steroid use/fluid retention contributing to symptoms as well as dietary indiscretion. Prednisone taper had been at 30mg daily outpatient w/ Dr Romero s/p 40mg IV lasix in ER with improvement in breathing and stable. PO kcl provided this AM for K 3.4. Mag 2.2. ECHO w/o significant change, no wma, noted pulm htn which she is on sildenafil for and pulm to repeat echo in 2-[address] Romero and rec to continue lasix 20mg Q2d. I sent PO Kcl 20meq on days she takes the lasix. Discussed to monitor weights and contact her provider if >3lb in a day or 5lb in a week as she may require daily lasix Given Ceftriaxone/Azithro in ER, to continue course of Azithro at discharge x [address] Romero and patient back to baseline and able to have discharge with outpatient follow-up. 99% on 3L at rest. Ambulated in the valente w/ lowest sat to 89% on 3L and stable for dc Prednisone decreased to 20mg x 2 days and to continue 10mg daily at discharge CM to contact her on Sunday to help w/ MOMs meals and low sodium options. Encouaged low salt diet Did contact pharmacy and they will provide her meds for tomorrow as she is unable to get meds delivered until Sunday to her house to prevent gap in care.. Refilled her prednisone rx as well (she has 2 doses left currently) (2) Interstitial lung disease: Per Dr. Romero, on consult, continued prednisone 20mg x 2 days and discharged on 10mg daily To continue her cellcept BID, sildenafil TID Azithromycin 500mg daily -- complete 5 day course F/u outpatient (3) Elevated troponin: -Initial high sen trop elevated at 68, suspect demand ischemia from volume overload and improved w/ diuretics ECHO w/o significant change, no wma EKG w/o ST, T-wave changes (4) Secondary pulmonary hypertension: -Continued sildenafil (5) Diabetes mellitus type II, controlled: Not currently on medical regimen as last A1c in October was 5.4 -- refusing all insulin administration Patient will need continued discussions in follow up, especially with chronic steroid use (6) Post traumatic stress disorder: Continued Topamax, lamictal, and buspar (7) Hypothyroidism: TSH slightly low but normal T4/T3 and continued current dose. F/u for repeat testing w/ PCP/consider decreasing dose as outpatient if remains low (8) GERD (gastroesophageal reflux disease): continued protonix Plan cleared by pulm for discharge, patient wanting to go home continue azithro x 5 days at discharge, decreased presnidone to 10mg daily lasix 20mg q2d + KCL supplementation and to limit sodium intake and monitor her weights Total Time Total Time Spent Total Time Spent (In Minutes): 45 Discharge Plan Discharge Items Patient Disposition: Home - Self-Care Reason For Visit: SOB Discharge Diagnosis: Interstitial lung disease Volume overload Goals: You have been hospitalized for an acute medical problem. During your stay at [facility], we have made an effort to correct the problem that brought you to the hospital while keeping you as comfortable as possible. Medications were used to bring your condition under control and your discharge instructions will include directions for any medications you should take after leaving the hospital. Please make sure you see your Primary Care Provider as part of your follow up plan. Activity: Resume your previous activity Non-emergency contact: Primary Care Provider and Technology Advisor Call non-emergency contact if: you have any medication questions, your symptoms worsen and you have a fever Follow-up/Referrals: Joseph Romero MD [Physician] - Ted Singh MD [Primary Care Provider] - Diet: Carb Consistent or DM2 and Heart Healthy Addtl Attending Provider Instructions: You have been hospitalized for shortness of breath and increased oxygen needs. You were treated with steroids and lasix and have been back to your baseline 3 liters and should continue your sildenafil 20mg three times daily, cellcept 500mg twice daily as well. Per Dr Romero, you should continue only the 10mg (one tablet) of prednisone daily at discharge. We are sending you lasix 20mg by mouth to take EVERY OTHER DAY -- this starts tomorrow. We have sent a prescription for potassium to take with this when you take the lasix to prevent any lows. You are to continue azithromycin 500mg by mouth daily for another 3 days. One tablet is being provided at discharge along with the lasix (furosemide) as well as the potassium. You should follow up with primary care and Dr Romero at discharge. Please return to the ER with any worsening shortness of breath, chest pain, low oxygen levels or any symptoms concerning for you. It has been a pleasure being a part of the medical team providing for you while you have been int [facility]. Take care! Pending Studies at Discharge: Yes Studies:: Blood cultures no growth to date Sputum culture -- moderate normal gladys on preliminary Stand-Alone Forms: My [facility], Smoking Cessation Medications and DC Order Prescriptions: New furosemide 20 mg tablet 20 mg PO Q OTHER DAY Qty: 15 0RF potassium chloride 10 mEq capsule, extended release 20 meq PO Q2D Qty: 30 0RF cyanocobalamin (vitamin B-12) 1,000 mcg capsule 1,000 mcg PO DAILY Qty: 30 0RF azithromycin 250 mg Tablet 500 mg PO QAM 3 Days Qty: 6 0RF Continued ibuprofen 200 mg capsule 200 mg PO Q6H PRN (Reason: Pain) amitriptyline 25 mg tablet 25 mg PO HS Qty: 90 3RF (DME) Portable Oxygen Misc See Rx Instructions .Route Qty: 1 0RF Rx Instructions: POC -evaluate for conserving device to maintain O2 Sat above 88% tramadol 50 mg tablet 50 mg PO Q6H PRN (Reason: pain) Qty: 20 0RF gabapentin 100 mg capsule 100 mg PO DAILY Qty: 30 0RF lamotrigine [Lamictal] 100 mg tablet 100 mg PO DAILY (DME) Portable Oxygen Misc See Rx Instructions .Route Qty: 1 0RF Rx Instructions: 2L at rest and 5L with exertion (oxygen concentrator) sildenafil (pulm.hypertension) 20 mg tablet 20 mg PO TID Qty: 90 2RF Rx Instructions: administer doses at least 4-6 hours apart pantoprazole 40 mg tablet,delayed release (DR/EC) 40 mg PO BID Qty: 30 2RF mycophenolate mofetil 500 mg tablet 500 mg PO BID Qty: 60 2RF topiramate [Topamax] 100 mg tablet 100 mg PO BID Patient Comments: takes in afternoon= "I havent taken that in a long time." levothyroxine 137 mcg tablet 137 mcg PO QAM buspirone 10 mg tablet 20 mg PO DAILY prednisone 10 mg tablet 10 mg PO DAILY Qty: 30 2RF Discharge Orders: Discharge Order (Routine); Ordered 03/03/23 Ordered By: Mleina Yost Admission Data Admit Date/Time: 03/02/23 12:57 Attending Provider: Jamie Cha Admit Provider: Malcolm Tai Primary Care Provider: Ted Singh Other Providers: Malcolm Tai ; Joseph Romero Other Interventions: Discharge Summary Assessment (RN) Last Done: 03/03/23 12:31 Supervising Physician Co-Signing Physician Notes The patient was seen by me. The chart was reviewed. Case discussed with FAVIO Webb. Agree with assessment and plan. She is stable for discharge Coding Level of Care Code 18481 INP/OBS DISCH >30 MIN Diagnoses Dyspnea R06.00 Interstitial lung disease J84.9 Elevated troponin R77.8 Secondary pulmonary hypertension Diabetes mellitus type II, controlled E11.9 Post traumatic stress disorder F43.10 Hypothyroidism E03.9 GERD (gastroesophageal reflux disease) K21.9
[2023-03-03] MEDS ORDERED: FUROSEMIDE 20 MG TAB PO SCH ×2 (12:45)
[2023-03-03] MEDS ORDERED: POTASSIUM CHLORIDE CRTAB 20 MEQ TABCR PO SCH (12:45)
[2023-03-04] MEDS ORDERED: FUROSEMIDE 20 MG TAB PO SCH (09:00)
[2023-03-04] MEDS ORDERED: POTASSIUM CHLORIDE CRTAB 20 MEQ TABCR PO SCH (09:00)
== END 2023-03-03 15:02 | disposition home or self-care (01) ==
LOC: ED 09:39 → EDINP 09:39 → SUATTDRO 12:57 → 2W 13:10

== ENCOUNTER 2023-06-14 17:26 | Observation (INO) ==
[2023-06-14 18:38] LABS: Basophils # (auto) 0.08 K/uL (0.00-0.20); Basophils % (auto) 0.7 %; Eosinophils # (auto) 0.22 K/uL (0.00-0.50); Hematocrit (blood only) 43.5 % (37.0-47.0); Hemoglobin 13.7 g/dl (12.0-16.0); Immature Granulocytes # (auto) 0.09 K/uL (0.01-0.20); Immature Granulocytes % (auto) 0.8 %; Lymphocytes # (auto) 1.19 K/uL (1.20-3.40); Lymphocytes % (auto) 10.9 %; Mean Corpuscular Hemoglobin 26.9 pg (25.0-34.0); Mean Corpuscular Hgb Conc 31.5 g/dL (32.0-36.0); Mean Corpuscular Volume 85.5 fL (80.0-100.0); Mean Platelet Volume 10.7 fL (9.4-12.4); Monocytes # (auto) 0.77 K/uL (0.11-0.59); Monocytes % (auto) 7.1 %; Neutrophils # (auto) 8.55 K/uL (1.40-6.50); Neutrophils % (auto) 78.5 %; Platelet Count 313 K/uL (130-400); RDW Coefficient of Variation 15.4 % (11.5-14.5); RDW Standard Deviation 47.7 fL (36.4-46.3); Red Blood Count 5.09 M/uL (4.20-5.40)
[2023-06-14 18:51] LABS: Alanine Aminotransferase 11 U/L (7-52); Albumin Globulin Ratio 1.7 (0.9-2); Albumin Level 4.3 gm/dl (3.4-5.0); Alkaline Phosphatase 105 U/L (34-104); Anion Gap 11 (3-11); Aspartate Aminotransferase 18 U/L (13-39); BUN Creatinine Ratio 11.7 (10-20); Bilirubin,Total 0.4 mg/dl (0.2-1.0); Blood Urea Nitrogen 16 mg/dl (6-23); Carbon Dioxide 22 mmol/L (21-32); Chloride 101 mmol/L (98-107); Est GFR (African American) 43.9 ml/min; Est GFR (Non-African American) 37.9 ml/min; Globulin 2.6 gm/dl (2.5-4.0); Glucose 123 mg/dl (70-99(Fasting)); Potassium 3.5 mmol/L (3.5-5.1); Sodium 134 mmol/L (136-145); Total Protein 6.9 gm/dl (6.0-8.3)
[2023-06-14] MEDS ORDERED: IOVERSOL 350 MG 125mL Prefilled Syringe IV ONE (20:18)
--- NOTE | 2023-06-14 20:52 | CT Scan Report ---
Exam(s): CTA CHEST EXAM: CT Angiography Chest With Intravenous Contrast CLINICAL HISTORY: Rule out PE. TECHNIQUE: Axial computed tomographic angiography images of the chest with intravenous contrast. CTDI is 27.85 mGy and DLP is 787.97 mGy-cm. Automated exposure control was utilized for the study. A dose lowering technique was utilized adhering to the principles of ALARA. MIP reconstructed images were created and reviewed. COMPARISON: CT high-resolution chest 12/26/2022; CT PE 01/05/2022 FINDINGS: Limitations: There is respiratory artifact, which degrades image quality on multiple image slices. Pulmonary arteries: Accounting for limitations with respiratory artifact, there is no definite evidence for pulmonary embolism. Aorta: No acute findings. No thoracic aortic aneurysm. Lungs: Peripheral prominent chronic interstitial changes with subtle honeycombing at the lung bases is similar in morphology and appearance. No lobar consolidation identified. Pleural space: Unremarkable. No significant effusion. No pneumothorax. Heart: Cardiac chambers are stable and size. No pericardial effusion. Bones/joints: No acute fracture. No dislocation. Soft tissues: Unremarkable. Lymph nodes: Similar nonspecific AP window and paratracheal lymph nodes without developing lymphadenopathy. IMPRESSION: 1. Accounting for limitations with respiratory artifact, there is no definite evidence for pulmonary embolism. 2. Peripheral prominent chronic interstitial changes with subtle honeycombing at the lung bases consistent with interstitial fibrosis is similar in morphology and appearance. No lobar consolidation identified. No pleural effusion or pneumothorax. Electronically signed by: Uriah Franco MD 06/14/23 20:52 PM
[2023-06-14 20:59] LABS: Troponin I High Sensitivity 71.8 pg/ml (0-14)
--- NOTE | 2023-06-14 22:20 | XRay Report ---
SINGLE VIEW CHEST CLINICAL HISTORY: Dyspnea. Lower extremity edema FINDINGS: An AP, portable, upright chest radiograph is compared to study dated 03/02/2023. Correlation is made with chest CT dated 01/05/2022. The heart is enlarged. The pulmonary vasculature is nonconges valeria. Emphysema with superimposed changes of chronic fibrotic lung disease is similar to previous. Sub pleural reticulation is seen throughout both lungs. Scarring/opacities at the lung bases are similar to previous. No superimposed airspace consolidation or large pleural effusion is identified. No pneum othorax is seen. The skeletal structures are osteopenic. The bony thorax is grossly intact. IMPRESSION: Cardiomegaly with emphysema and superimposed changes of chronic interstitial/fibrotic tom g disease are similar to previous. No acute cardiopulmonary abnormality is identified. ACT 112: Negative or not required by law. Electronically signed by: Jose Maria Shaw M.D. 06/14/2023 10:18 PM
--- NOTE | 2023-06-14 23:26 | Emergency Department Note ---
History of Present Illness General Chief Complaint: Referred by Doctor Stated Complaint: SOB Time Seen by Provider: 06/14/23 19:55 History of Present Illness Provider Complaint: shortness of breath Onset (ago): month(s) (1) Consistency/Duration: + progressively worsening Relieved By: + oxygen and + upright position Exacerbated By: + lying flat and + exertion Known history of: asthma and other (Pulmonary hypertension. Pulmonary fibrosis.) Associated symptoms: + chest pain (Intermittent) and + chest congestion; no wheezing, no sputum production, no hemoptysis or no nausea/vomiting HPI Narrative: Patient is not on any blood thinners. Patient states that her oxygen level goes into the 60s with ambulation and she was referred here by her floor steward/stewardess Dr. Campbell Related Data Home oxygen amount: 3 liters Home Medications Medication Instructions Recorded Confirmed Type amitriptyline 25 mg tablet 25 mg PO HS #90 tabs 09/26/21 06/14/23 Rx topiramate 100 mg tablet (Topamax) 100 mg PO BID 09/29/22 06/14/23 History tramadol 50 mg tablet 50 mg PO Q6H PRN pain #20 tabs 01/12/23 06/14/23 Rx pantoprazole 40 mg tablet,delayed 40 mg PO BID #30 tabs 02/20/23 06/14/23 Rx release buspirone 10 mg tablet 20 mg PO DAILY 03/02/23 06/14/23 History levothyroxine 137 mcg tablet 137 mcg PO QAM 03/02/23 06/14/23 History cyanocobalamin (vitamin B-12) 1,000 mcg PO DAILY #30 caps 03/03/23 06/14/23 Rx 1,000 mcg capsule prednisone 10 mg tablet 10 mg PO DAILY #30 tabs 03/03/23 06/14/23 Rx sildenafil (pulm.hypertension) 20 20 mg PO TID #90 tabs 05/25/23 06/14/23 Rx mg tablet mycophenolate mofetil 250 mg 500 mg PO BID #120 caps 06/08/23 06/14/23 Rx capsule acetaminophen 325 mg tablet 650 mg PO QID PRN Pain 06/14/23 06/14/23 History (Tylenol) furosemide 20 mg tablet 20 mg PO DIRECTED 06/14/23 06/14/23 History gabapentin 100 mg capsule 100 mg PO BID 06/14/23 06/14/23 History lamotrigine 150 mg tablet 150 mg PO HS 06/14/23 06/14/23 History Allergies Allergy/AdvReac Type Severity Reaction Status Date / Time latex Allergy Intermediate Rash, hand Verified 06/14/23 23:00 swelling Sulfa (Sulfonamide Allergy Intermediate Rash Verified 06/14/23 23:00 Antibiotics) Penicillins Allergy Unknown Unknown Verified 06/14/23 23:00 reaction (as teenager) morphine AdvReac Intermediate Anxiety Verified 06/14/23 23:00 Past Med/Surg History Medical History Acute dyspnea Acute on chronic respiratory failure with hypoxemia Anxiety and depression Arrhythmia ? hx of a. fib- on Eliquis per cardiology Bipolar disorder Cerebrovascular accident (CVA) of left thalamus 06/11/2021 (post-op Right TKA) > POD#1 ischemic left thalamic stroke CVA > 9 months from DOS Chronic cough Chronic hypoxemic respiratory failure Chronic low back pain Diffuse myofascial pain syndrome Fluid overload GERD (gastroesophageal reflux disease) History of blood transfusion Post-op 2016 History of COVID-19 12/2020 > fully recovered Hyperglycemia Hx mild hyperglycemia under surveillance by PCP. Most recent A1C 5.6% (06/12/21) Hypothyroidism IBS (irritable bowel syndrome) Intermittent flares - takes Amitriptyline and Protonix for GI pain control Interstitial lung disease IPF (idiopathic pulmonary fibrosis) Left bundle branch block Follows with [facility] cardiology On home oxygen therapy 2-3L at rest/5L with activity Osteopenia Pulmonary edema Pulmonary hypertension Moderately elevated estimated RVSP (RVSP 40-50mmhg) per 01/19/22 echo Pulmonary hypertension Secondary pulmonary hypertension Secondary pulmonary hypertension Shortness of breath Spinal stenosis Weight gain Surgical History History of anesthesia reaction "Slow to wake" x1 episode after 3 hour surgery in 2017- she states she became violent and upset, hallucinated while waking up. Began to calm down once she heard her daughter's voice. History of arthroscopy R/L knee History of cholecystectomy History of colonoscopy History of hernia surgery History of hysterectomy History of loop recorder History of surgery Right Quadriceps Repair (06/14/21): LMA#4 at [facility]. No issues noted per post-op anesthesia progress note. History of total knee replacement Right TKA (06/10/21): SAB at L4-5 (x1 attempt) + PNB at [facility] Status post bronchoscopy With BAL 08/01/[address] Romero at [facility] Status post gastric banding surgery + removal Family History Family/Other No problems noted. Mother Colon cancer Dementia Father , at age 79 from mesothelioma. Mesothelioma Sister No problems noted. Sister No problems noted. Son No problems noted. Daughter No problems noted. Other Family history of diabetes mellitus in father Denies family history of Ovarian cancer Prostate cancer Myocardial infarction Breast cancer Social History Smoking Status: Former smoker Tobacco Type: Cigarettes packs per day: 1; Second Hand Exposure: No; Do You Dip or Chew Tobacco: No; Hx Alcohol Use: Yes Alcohol type: wine Hx Substance Use: No Preferred Language: Urdu Communication Ability: Effective Visual Impairment: No Limitations Maintenance Inspector Required: No Beliefs That Will Affect Care: None marital status: Single Current Living Situation: Alone Current Living Situation Comment: IN 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 current occupational status: retired Feels Safe at Home: Yes Childhood Exposure to Second-Hand Smoke: Yes Dental Care, Regularly: Yes Physical Activity Frequency: Daily Seatbelt Use: always Sunscreen Use: No Assistive Devices: Denture - Upper and Glasses Physical Exam Vital Signs: Vital Signs - 24 hr 06/14/23 17:33 06/14/23 20:29 06/14/23 20:30 Temperature 36.5 C Temperature Source Temporal Artery Sc an Pulse Rate 93 H 88 88 Pulse Rate from Sp O2 Sensor 88 Pulse Rhythm Regular Respiratory Rate 16 22 Respiratory Effort / Characteristics Non-Labored Sponta neous Respiratory Depth Normal Blood Pressure 113/73 Blood Pressure Ghislaine n 86 Pulse Oximetry 96 100 Oxygen Delivery Me thod Nasal Cannula Oxygen Flow Rate 3 Sepsis Recent Feve r Within 48 Hours No Sepsis New/Unexpla ined Change in Men lorna Status No Sepsis Action Take n by Nursing No Action Required 06/14/23 21:00 06/14/23 21:30 06/14/23 21:50 Temperature Temperature Source Pulse Rate 82 81 80 Pulse Rate from Sp O2 Sensor 83 81 80 Pulse Rhythm Respiratory Rate 24 17 22 Respiratory Effort / Characteristics Respiratory Depth Blood Pressure 104/74 104/74 Blood Pressure Ghislaine n 84 84 Pulse Oximetry 97 99 99 Oxygen Delivery Me thod Oxygen Flow Rate Sepsis Recent Feve r Within 48 Hours Sepsis New/Unexpla ined Change in Men lorna Status Sepsis Action Take n by Nursing 06/14/23 22:00 Temperature Temperature Source Pulse Rate 79 Pulse Rate from Sp O2 Sensor 78 Pulse Rhythm Respiratory Rate 19 Respiratory Effort / Characteristics Respiratory Depth Blood Pressure 129/83 Blood Pressure Ghislaine n 98 Pulse Oximetry 100 Oxygen Delivery Me thod Oxygen Flow Rate Sepsis Recent Feve r Within 48 Hours Sepsis New/Unexpla ined Change in Men lorna Status Sepsis Action Take n by Nursing Physical Exam: Physical Exam GENERAL: oriented to person, place, and time. appears well-developed and well- nourished. HENT: Exam performed. - Head: Normocephalic and atraumatic. EYES: Conjunctivae and EOM are normal. Right eye exhibits no discharge. Left eye exhibits no discharge. No scleral icterus. NECK: Normal range of motion. Neck supple. No JVD present. CV: Normal rate, regular rhythm, normal heart sounds and intact distal pulses. Palpable radial pulses bue. 1+ pitting edema of the bilateral lower extremities. PULM/CHEST: Rhonchi bilaterally. ABD: The abdomen is soft. There is no tenderness. NEURO: Motor and sensation grossly intact. SKIN: Skin is warm and dry. He is not diaphoretic. PSYCH: normal mood and affect. Behavior is normal. Judgment and thought content normal. Course Course 193: The patient was evaluated in room B9. A complete history and physical exam was performed Cardiac monitoring: An order was placed for continuous cardiac monitoring. The monitor shows a rate of 90 with sinus rhythm interpreted by me 2230: Vital signs stable. Labs show white blood cell count of 10.9 troponin 71.8. Imaging shows no PE or pneumonia. Patient will be admitted to the [facility] team for her exertional dyspnea and elevated troponin. Patient not reporting any chest pain at this time. Administered Medications Discontinued Medications Ioversol (Ioversol 350 Mg 125ml Prefilled Syringe) 115 ml IV ONCE ONE Stop: 06/14/23 20:19 Last Admin: 06/14/23 20:21 Dose: 115 ml Documented By: HEATHER Medical Decision Making Laboratory Data Attestation: I reviewed the patient's lab results. 06/14/23 18:14 08/31/23 18:14 Lab Results 06/14/23 06/14/23 06/14/23 Range/Units 18:14 18:14 18:14 WBC 10.90 H (4.8-10.8) K/ul RBC 5.09 (4.20-5.40) M/uL Hgb 13.7 (12.0-16.0) g/dl Hct 43.5 (37.0-47.0) % MCV 85.5 (80.0-100.0) fL MCH 26.9 (25.0-34.0) pg MCHC 31.5 L (32.0-36.0) g/dL RDW Std Deviation 47.7 H (36.4-46.3) fL RDW Coeff of Ese 15.4 H (11.5-14.5) % Plt Count 313 (130-400) K/uL MPV 10.7 (9.4-12.4) fL Immature Gran % (Auto) 0.8 % Neut % (Auto) 78.5 % Lymph % (Auto) 10.9 % Monona % (Auto) 7.1 % Eos % (Auto) 2.0 % Baso % (Auto) 0.7 % Neut # (Auto) 8.55 H (1.40-6.50) K/uL Lymph # (Auto) 1.19 L (1.20-3.40) K/uL Monona # (Auto) 0.77 H (0.11-0.59) K/uL Eos # (Auto) 0.22 (0.00-0.50) K/uL Baso # (Auto) 0.08 (0.00-0.20) K/uL Immature Gran # (Auto) 0.09 (0.01-0.20) K/uL Sodium 134 L (136-145) mmol/L Potassium 3.5 (3.5-5.1) mmol/L Chloride 101 (98-107) mmol/L Carbon Dioxide 22 (21-32) mmol/L Anion Gap 11 (3-11) BUN 16 (6-23) mg/dl Creatinine 1.37 H (0.6-1.2) mg/dl Est Cr Clr Drug Dosing Not Reportable Est GFR ( Amer) 43.9 ml/min Est GFR (Non-Af Amer) 37.9 ml/min BUN/Creatinine Ratio 11.7 (10-20) Glucose 123 H (70-99(Fasting)) mg/dl Calcium 10.0 (8.6-10.3) mg/dl Total Bilirubin 0.4 (0.2-1.0) mg/dl AST 18 (13-39) U/L ALT 11 (7-52) U/L Alkaline Phosphatase 105 H (34-104) U/L Troponin I High Sens 71.8 H* (0-14) pg/ml B-Natriuretic Peptide 65 (0-100) pg/ml Total Protein 6.9 (6.0-8.3) gm/dl Albumin 4.3 (3.4-5.0) gm/dl Globulin 2.6 (2.5-4.0) gm/dl Albumin/Globulin Ratio 1.7 (0.9-2) Imaging Data Radiologist's Impression: Chest X-Ray 06/14/23 17:36 SINGLE VIEW CHEST CLINICAL HISTORY: Dyspnea. Lower extremity edema FINDINGS: An AP, portable, upright chest radiograph is compared to study dated 03/02/2023. Correlation is made with chest CT dated 01/05/2022. The heart is enlarged. The pulmonary vasculature is noncongested. Emphysema with superimposed changes of chronic fibrotic lung disease is similar to previous. Subpleural reticulation is seen throughout both lungs. Scarring/opacities at the lung bases are similar to previous. No superimposed airspace consolidation or large pleural effusion is identified. No pneumothorax is seen. The skeletal structures are osteopenic. The bony thorax is grossly intact. IMPRESSION: Cardiomegaly with emphysema and superimposed changes of chronic interstitial/fibrotic lung disease are similar to previous. No acute cardiopulmonary abnormality is identified. ACT 112: Negative or not required by law. Electronically signed by: Jose Maria Shaw M.D. 06/14/2023 10:18 PM Chest CTA 06/14/23 19:59 Exam(s): CTA CHEST EXAM: CT Angiography Chest With Intravenous Contrast CLINICAL HISTORY: Rule out PE. TECHNIQUE: Axial computed tomographic angiography images of the chest with intravenous contrast. CTDI is 27.85 mGy and DLP is 787.97 mGy-cm. Automated exposure control was utilized for the study. A dose lowering technique was utilized adhering to the principles of ALARA. MIP reconstructed images were created and reviewed. COMPARISON: CT high-resolution chest 12/26/2022; CT PE 01/05/2022 FINDINGS: Limitations: There is respiratory artifact, which degrades image quality on multiple image slices. Pulmonary arteries: Accounting for limitations with respiratory artifact, there is no definite evidence for pulmonary embolism. Aorta: No acute findings. No thoracic aortic aneurysm. Lungs: Peripheral prominent chronic interstitial changes with subtle honeycombing at the lung bases is similar in morphology and appearance. No lobar consolidation identified. Pleural space: Unremarkable. No significant effusion. No pneumothorax. Heart: Cardiac chambers are stable and size. No pericardial effusion. Bones/joints: No acute fracture. No dislocation. Soft tissues: Unremarkable. Lymph nodes: Similar nonspecific AP window and paratracheal lymph nodes without developing lymphadenopathy. IMPRESSION: 1. Accounting for limitations with respiratory artifact, there is no definite evidence for pulmonary embolism. 2. Peripheral prominent chronic interstitial changes with subtle honeycombing at the lung bases consistent with interstitial fibrosis is similar in morphology and appearance. No lobar consolidation identified. No pleural effusion or pneumothorax. Electronically signed by: Uriah Franco MD 06/14/23 20:52 PM ECG Data Attestation: I personally reviewed and interpreted this ECG as follows: Interpretation: Sinus rhythm with a rate of 92. [place] 148 QRS 128 QTc 474. Left bundle branch block present. sgarbosa negative. No significant change from the EKG in February 13. [facility] Narrative 1935: The patient was evaluated in room B9. A complete history and physical exam was performed Cardiac monitoring: An order was placed for continuous cardiac monitoring. The monitor shows a rate of 90 with sinus rhythm interpreted by nv 2230: Vital signs stable. Labs show white blood cell count of 10.9 troponin 71.8. Imaging shows no PE or pneumonia. Patient will be admitted to the [facility] team for her exertional dyspnea and elevated troponin. Patient not reporting any chest pain at this time. Impression & Plan Exertional dyspnea, Elevated troponin Discharge Plan Visit Data Chief Complaint: Referred by Doctor Stated Complaint: SOB ED Provider: Kristopher Casey Discharge Problem: Exertional dyspnea, Elevated troponin Patient Disposition: Admitted As Inpatient Forms Stand Alone Forms: My [facility] Prescriptions Prescriptions: No Action amitriptyline 25 mg tablet 25 mg PO HS Qty: 90 3RF tramadol 50 mg tablet 50 mg PO Q6H PRN (Reason: pain) Qty: 20 0RF sildenafil (pulm.hypertension) 20 mg tablet 20 mg PO TID Qty: 90 2RF Rx Instructions: administer doses at least 4-6 hours apart mycophenolate mofetil 250 mg capsule 500 mg PO BID Qty: 120 5RF pantoprazole 40 mg tablet,delayed release (DR/EC) 40 mg PO BID Qty: 30 2RF topiramate [Topamax] 100 mg tablet 100 mg PO BID Patient Comments: takes in afternoon= "I havent taken that in a long time." levothyroxine 137 mcg tablet 137 mcg PO QAM buspirone 10 mg tablet 20 mg PO DAILY cyanocobalamin (vitamin B-12) 1,000 mcg capsule 1,000 mcg PO DAILY Qty: 30 0RF prednisone 10 mg tablet 10 mg PO DAILY Qty: 30 2RF lamotrigine 150 mg tablet 150 mg PO HS acetaminophen [Tylenol] 325 mg Tablet 650 mg PO QID PRN (Reason: Pain) furosemide 20 mg tablet 20 mg PO DIRECTED Rx Instructions: has not had for over a week. gabapentin 100 mg capsule 100 mg PO BID Referrals Referrals: Ted Singh MD [Primary Care Provider] -
--- NOTE | 2023-06-15 00:31 | History & Physical Report ---
Date of Service June 15, 2023 Assessment & Plan (1) Exertional dyspnea: Plan: -Patient 218lbs on bed scale, stated last normal weight around 209-215lbs. -BNP 65, trop 71.8, creatinine 1.37 on admission. -Possible bump in creatinine from fluid overload vs other etiology. -EKG NSR w/ LBBB. -Sats down to the 70's on exertion at home, 100% on baseline 3L at rest in the ED. -Will obtain echo to check for status of pulm HTN, per last pulm note had improved moderately in February from previous US. -This current exertional dyspnea and leg swelling may be due to fluid overload from steroid use vs increased pulm HTN -Will trend troponin until peak. -Will start on Lasix 40mg IV qAM, follow renal panel closely for kidney function and electrolytes. -PT eval and treat. -Admit to med/tele for monitoring. (2) Localized swelling of both lower legs: Plan: Same plan as above. (3) Elevated troponin: Plan: Same plan as above. Will trend until peak, no active chest pain, EKG NSR w/ LBBB. May have been demand ischemia, patient stated heart was racing quite a bit with exertion. (4) Pulmonary hypertension: Plan: -Continue home medications sildenafil 20mg TID, mycophenolate 500mg BID. (5) Interstitial lung disease: Plan: -Continue home medications, prednisone 10mg. (6) Diabetes mellitus type II, controlled: Plan: -A1c from October 19.4. Fasting glucose 123. -If sugars go above [address] on SSI and basal. (7) On home oxygen therapy: Plan: Continue on 3L home O2, titrate up as needed. (8) PSVT (paroxysmal supraventricular tachycardia): Plan: -EKG with NSR. Continue to monitor on telemetry (9) Left bundle branch block: Plan: EKG with NSR, LBBB. Trend trop as above. (10) GERD (gastroesophageal reflux disease): Plan: -Continue home pantoprazole. (11) IBS (irritable bowel syndrome): Plan: -Diarrhea bouts, improving. (12) Hypothyroidism: Plan: -continue home levothyroxine. Plan F/E/N/GI: T2DM diet. DVT Prophylaxis: Heparin 5k q8h due to potential GALA. Code Status: Conditional, no machines, CPR and shock okay but patient would not like to be hooked up to a machine such as intubation. Dispo: Med/tele History of Present Illness Chief Complaint: bilateral leg swelling Primary Care Provider: Ted Singh MD Marichuy is a 73 year old female w/ PmHx collagen vascular disease ILD on 3L NC chronic oxygen therapy, pulmonary hypertension, paroxysmal SVT, IBS, T2DM, previous CVA, GERD, bipolar disorder, and hypothyroidism coming in to the ED for prolonged bilateral leg swelling. Patient states that 4 weeks ago she started to get bilateral leg swelling. She contacted her PCP office about the leg swelling at the time and was trialed on Lasix 20mg for 5 days. She states that the Lasix helped but when she was finished with the course the swelling came back. She did this for a few more iterations and then did not have Lasix for 1 week leading to the current bilateral leg swelling. She has also had a few episodes of oxygen dropping to the low 70's and one time to 66% when exerting herself. She says there's been a few times where she has some reflux type pain that is relieved wi th tums but no persistent chest pain. She denies any fevers, chills, cough, nausea, vomiting, urinary symptoms. She has IBS and has had diarrhea that was watery but now mushy. She has some abdominal points of tenderness that hurt with pressing on the area. Upon further evaluation these point tenderness areas sound like trigger points. In the ED WBC 10.90, Na 135, K 3.5, Creat 1.37, troponin 71.8. CXR w/ cardiomegaly w/ emphysema and superimposed changes of chronic interstitial/fibrotic lung disease similar to previous. CTA chest w/o evidence for PE, peripheral prominent chronic interstitial changes w/ subtle honeycombing, no lobar consolidation or pleural effusion. Allergies Allergy/AdvReac Type Severity Reaction Status Date / Time latex Allergy Intermediate Rash, hand Verified 06/14/23 23:00 swelling Sulfa (Sulfonamide Allergy Intermediate Rash Verified 06/14/23 23:00 Antibiotics) Penicillins Allergy Unknown Unknown Verified 06/14/23 23:00 reaction (as teenager) morphine AdvReac Intermediate Anxiety Verified 06/14/23 23:00 Home Medications Medication Instructions Recorded Confirmed Type amitriptyline 25 mg tablet 25 mg PO HS #90 tabs 09/26/21 06/14/23 Rx topiramate 100 mg tablet (Topamax) 100 mg PO BID 09/29/22 06/14/23 History tramadol 50 mg tablet 50 mg PO Q6H PRN pain #20 tabs 01/12/23 06/14/23 Rx pantoprazole 40 mg tablet,delayed 40 mg PO BID #30 tabs 02/20/23 06/14/23 Rx release buspirone 10 mg tablet 20 mg PO DAILY 03/02/23 06/14/23 History levothyroxine 137 mcg tablet 137 mcg PO QAM 03/02/23 06/14/23 History cyanocobalamin (vitamin B-12) 1,000 mcg PO DAILY #30 caps 03/03/23 06/14/23 Rx 1,000 mcg capsule prednisone 10 mg tablet 10 mg PO DAILY #30 tabs 03/03/23 06/14/23 Rx sildenafil (pulm.hypertension) 20 20 mg PO TID #90 tabs 05/25/23 06/14/23 Rx mg tablet mycophenolate mofetil 250 mg 500 mg PO BID #120 caps 06/08/23 06/14/23 Rx capsule acetaminophen 325 mg tablet 650 mg PO QID PRN Pain 06/14/23 06/14/23 History (Tylenol) furosemide 20 mg tablet 20 mg PO DIRECTED 06/14/23 06/14/23 History gabapentin 100 mg capsule 100 mg PO BID 06/14/23 06/14/23 History lamotrigine 150 mg tablet 150 mg PO HS 06/14/23 06/14/23 History Past Med/Surg History Medical History (Updated 06/15/23 @ 00:31 by Jose Angel John DO) Acute dyspnea Acute on chronic respiratory failure with hypoxemia Anxiety and depression Arrhythmia ? hx of a. fib- on Eliquis per cardiology Bipolar disorder Cerebrovascular accident (CVA) of left thalamus 06/11/2021 (post-op Right TKA) > POD#1 ischemic left thalamic stroke CVA > 9 months from DOS Chronic cough Chronic hypoxemic respiratory failure Chronic low back pain Diffuse myofascial pain syndrome Fluid overload GERD (gastroesophageal reflux disease) History of blood transfusion Post-op 2017 History of COVID-19 12/2020 > fully recovered Hyperglycemia Hx mild hyperglycemia under surveillance by PCP. Most recent A1C 5.6% (8/29/21) Hypothyroidism IBS (irritable bowel syndrome) Intermittent flares - takes Amitriptyline and Protonix for GI pain control Interstitial lung disease IPF (idiopathic pulmonary fibrosis) Left bundle branch block Follows with [facility] cardiology On home oxygen therapy 2-3L at rest/5L with activity Osteopenia Pulmonary edema Pulmonary hypertension Moderately elevated estimated RVSP (RVSP 40-50mmhg) per 01/19/22 echo Pulmonary hypertension Secondary pulmonary hypertension Secondary pulmonary hypertension Shortness of breath Spinal stenosis Weight gain Surgical History History of anesthesia reaction "Slow to wake" x1 episode after 3 hour surgery in 2017- she states she became violent and upset, hallucinated while waking up. Began to calm down once she heard her daughter's voice. History of arthroscopy R/L knee History of cholecystectomy History of colonoscopy History of hernia surgery History of hysterectomy History of loop recorder History of surgery Right Quadriceps Repair (06/14/21): LMA#4 at [facility]. No issues noted per post-op anesthesia progress note. History of total knee replacement Right TKA (06/10/21): SAB at L4-5 (x1 attempt) + PNB at [facility] Status post bronchoscopy With BAL 08/01/[address] Romero at [facility] Status post gastric banding surgery + removal Family History Family/Other No problems noted. Mother Colon cancer Dementia Father , at age 79 from mesothelioma. Mesothelioma Sister No problems noted. Sister No problems noted. Son No problems noted. Daughter No problems noted. Other Family history of diabetes mellitus in father Denies family history of Ovarian cancer Prostate cancer Myocardial infarction Breast cancer Social History Smoking Status: Former smoker Tobacco Type: Cigarettes packs per day: 1; Second Hand Exposure: No; Do You Dip or Chew Tobacco: No; Hx Alcohol Use: Yes Alcohol type: wine Hx Substance Use: No Preferred Language: Estonian Communication Ability: Effective Visual Impairment: No Limitations Train Electronic Technician Required: No Beliefs That Will Affect Care: None marital status: Single Current Living Situation: Alone Current Living Situation Comment: IN 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 current occupational status: retired Other Information That Helps Us Care for You: No Feels Safe at Home: Yes Safety Concerns: Feels Safe At This Time Childhood Exposure to Second-Hand Smoke: Yes Dental Care, Regularly: Yes Physical Activity Frequency: Daily Seatbelt Use: always Sunscreen Use: No Assistive Devices: Oxygen - Continuous and Walker Review of Systems Review of Systems: As per HPI. Physical Exam Constitutional: WD/WN, vitals as above Eyes: PERRL, conjunctivae normal, anicteric sclerae Respiratory: Bilateral bibasilar crackles, otherwise clear to auscultation in upper lung rubio. Cardiovascular: Rate/Rhythm: + tachycardic Heart Sounds: normal S1 and normal S2 Bilateral lower extremities with trace swelling up to the knees, nonpitting. Gastrointestinal (Abdomen): Trigger points located at the abdomen RUQ and 3 other points along the central abdomen. BS+, soft, no rebound or guarding. Skin: No rashes seen at the bilateral lower extremities. Tender to touch at the R lower leg but patient states she has nerve damage from a knee surgery. Psychiatric: A+Ox3, euthymic affect Results & Data Results & Data Vital Signs (Past 12 Hours) Vital Signs Temp Pulse Resp BP Pulse Ox O2 Del Method O2 Flow Rate 06/14/23 23:30 76 19 143/84 H 100 06/14/23 22:30 77 20 143/86 H 100 06/14/23 22:00 79 19 129/83 100 06/14/23 21:50 80 22 104/74 99 06/14/23 21:30 81 17 104/74 99 06/14/23 21:00 82 24 97 06/14/23 20:30 88 22 100 06/14/23 20:29 88 06/14/23 17:33 36.5 C 93 H 16 113/73 96 Nasal Cannula 3 Supervising Physician Co-Signing Physician Notes Attending addendum: I have physically seen this patient, have supervised the medical residents activities, and agree with the H&P unless as otherwise noted. Assessment and Plan: Acute on chronic respiratory failure with hypoxia/COPD/interstitial lung disease/pulmonary hypertension/fluid overload- Admitted to med telemetry Elevated troponin/pulmonary edema/lower extremity edema/PSVT/left bundle branch block- The patient will be admitted to telemetry for serial cardiac enzymes, serial EKG's, cardiac rhythm monitoring and a 2-D echocardiogram with Dopplers. Troponin 71.8 on admission Furosemide 40 mg IV every morning Follow serial renal function panel and magnesium levels COPD/interstitial fibrosis, interstitial lung disease/pulmonary hypertension- Continue sildenafil 20 mg p.o. 3 times daily, mycophenolate 5 mg p.o. twice daily Baseline oxygen requirement is 3 L at home, titrate to goal of 90-92% Continue prednisone 10 mg daily may require a course of stress dosing DuoNebs every 2 hours as needed Acute kidney injury on CKD- Creatinine 1.37 with base 1.09 Follow serially Remaining orders and notations as noted Resident Activity Tracking Resident Involvement: Resident Care Provided Care Provided: Adult [facility] Medicine
[2023-06-15 00:52] LABS: Appearance Urine Clear (Clear); Bilirubin Urine Negative (Negative); Blood Urine Negative (Negative); Color Urine Yellow; Glucose Urine UA Negative (Negative); Ketones Urine Trace (Negative); Leukocyte Esterase Urine Negative (Negative); Nitrite Urine Negative (Negative); Protein Urine Negative (Negative); Specific Gravity Urine 1.041 (1.000-1.030); Urobilinogen Urine Negative (Negative); pH Urine 5.5 (4.5-7.5)
[2023-06-15] MEDS ORDERED: traMADol HCL 50 MG TABLET PO PRN (04:16)
[2023-06-15] MEDS ORDERED: ACETAMINOPHEN 325 MG TAB PO PRN (04:16)
[2023-06-15] MEDS ORDERED: POLYETHYLENE (MIRALAX) 17 GM PACK PO PRN (04:16)
[2023-06-15] MEDS ORDERED: ONDANSETRON INJ 2 MG/ML 2 ML VIAL IV PRN (04:16)
[2023-06-15] MEDS ORDERED: PNEUMOCOCCAL POLYSACCHARIDES 25 MCG/0.5 ML VIAL/SYR IM ONE (05:13)
[2023-06-15] MEDS: LEVOTHYROXINE SODIUM 137 MCG TABLET PO SCH (05:47)
[2023-06-15] MEDS: HEPARIN SOD 5,000 UNIT/0.5 ML VIAL SQ SCH ×3 (05:50→21:41)
[2023-06-15 06:29] LABS: Basophils # (auto) 0.06 K/uL (0.00-0.20); Basophils % (auto) 0.8 %; Eosinophils # (auto) 0.26 K/uL (0.00-0.50); Eosinophils % (auto) 3.5 %; Hematocrit (blood only) 37.7 % (37.0-47.0); Hemoglobin 12.1 g/dl (12.0-16.0); Immature Granulocytes # (auto) 0.04 K/uL (0.01-0.20); Immature Granulocytes % (auto) 0.5 %; Lymphocytes # (auto) 1.59 K/uL (1.20-3.40); Lymphocytes % (auto) 21.2 %; Mean Corpuscular Hemoglobin 27.3 pg (25.0-34.0); Mean Corpuscular Hgb Conc 32.1 g/dL (32.0-36.0); Mean Corpuscular Volume 84.9 fL (80.0-100.0); Monocytes # (auto) 0.78 K/uL (0.11-0.59); Monocytes % (auto) 10.4 %; Neutrophils # (auto) 4.78 K/uL (1.40-6.50); Neutrophils % (auto) 63.6 %; Platelet Count 269 K/uL (130-400); RDW Coefficient of Variation 15.3 % (11.5-14.5); RDW Standard Deviation 47.1 fL (36.4-46.3); Red Blood Count 4.44 M/uL (4.20-5.40); White Blood Count 7.51 K/ul (4.8-10.8)
[2023-06-15 06:32] LABS: Albumin Level 3.6 gm/dl (3.4-5.0); BUN Creatinine Ratio 12.7 (10-20); Creatinine Clr Calc Pharmacy 45.3 ml/min; Est GFR (African American) 52.6 ml/min; Est GFR (Non-African American) 45.4 ml/min; Phosphorus 3.5 mg/dl (2.5-4.9); Potassium 3.4 mmol/L (3.5-5.1)
--- NOTE | 2023-06-15 07:35 | Hospitalist Progress Note ---
Date of Service June 15, 2023 Assessment & Plan (1) Exertional dyspnea: Plan: Exertional Dyspnea likely secondary to Interstitial Lung Disease -Most likely etiology secondary to ILD -BNP 65, trop 71.8, creatinine 1.37 on admission. -Possible bump in creatinine from fluid overload vs other etiology. -EKG NSR w/ LBBB. -Sats down to the 70's on exertion at home, 100% on baseline 3L at rest in the ED. -Will obtain echo to check for status of pulm HTN, per last pulm note had improved moderately in February from previous US. -This current exertional dyspnea and leg swelling may be due to fluid overload from steroid use vs increased pulm HTN -Was given dose of Lasix-> plan to hold further diuretics at this time think edema likely secondary to pulm HTN Plan to increase prednisone from 10mg daily to 50mg daily, if prolonged improvement would consider pulm consult LE edema -likely secondary to pulm HTN, hold on further diuretics Elevated Troponin - Tropin trended to peak, no active chest pain, EKG NSR w/ LBBB. - May have been demand ischemia, patient stated heart was racing quite a bit with exertion. Pulm HTN - Continue home medications sildenafil 20mg TID, mycophenolate 500mg BID. DM2 -A1c from 02.15. - diet controlled GERD -Continue home pantoprazole. IBS -Diarrhea bouts, improving. Hypothyroidism -continue home levothyroxine. F/E/N/GI: Regular DVT Prophylaxis: Heparin 5k q8h due to potential GALA. Code Status: Conditional, no machines, CPR and shock okay but patient would not like to be hooked up to a machine such as intubation. (2) Localized swelling of both lower legs: (3) Elevated troponin: (4) Pulmonary hypertension: (5) Interstitial lung disease: (6) Diabetes mellitus type II, controlled: (7) On home oxygen therapy: (8) PSVT (paroxysmal supraventricular tachycardia): (9) Left bundle branch block: (10) GERD (gastroesophageal reflux disease): (11) IBS (irritable bowel syndrome): (12) Hypothyroidism: Admission and Anticipated Discharge Date Admission Date: June 15, 2023 Supervising Physician Co-Signing Physician Notes I personally examined the patient and verified all mcclure points of history and exam, discussed case, and agree with decision making with Dr Fernando more short of breath, more swelling. Vitals noted, in general she is awake and alert pleasant, lungs surprisingly clear although suboptimal exam, bilateral lower extremity 1-2+ edema. Acute right-sided CHF due to ILD and pulmonary hypertensionprobably all really related to ILD worsening versus flarecautiously trying diuresis, although I suspect we will have more of a rising creatinine and we will affect improvement in her edema, and given that she does not really have any pulmonary edema, I really doubt we will improve her breathing with the diuresis is much as just her swelling. Increase steroids and follow to try to help with the breathingif that does not help over the next few days, May need to ask pulmonary for further input. DVT prophylaxis with heparin subcu Subjective Pt seen at bedside. States that she has been more dyspneic for the past month with progressive increase in LE edema Review of Systems Review of Systems: as per above Physical Exam Physical Exam: Constitutional: well-appearing, no acute distress HEENT: NCAT, no conjunctival injection CV: regular rhythm, no murmur appreciated, extremities well-perfused, nonpitting LE edema Resp: rales at bases, no increased work of breathing MSK: no gross deformities appreciated Skin: warm, dry, no rash appreciated Neuro: alert, oriented, no focal neurologic deficit appreciated Results & Data Results & Data Vital Signs (Past 12 Hours) Vital Signs Temp Pulse Pulse Resp BP BP Pulse Ox 06/15/23 05:05 74 06/15/23 05:05 06/15/23 05:05 36.6 C 89 18 123/63 95 06/15/23 04:00 89 34 H 06/15/23 03:34 73 22 130/70 100 06/15/23 03:30 74 18 100 06/15/23 03:00 80 20 98 06/15/23 02:30 75 35 H 99 06/15/23 02:00 77 20 99 06/15/23 01:30 81 16 99 06/15/23 00:58 87 06/15/23 01:00 82 15 99 06/15/23 00:01 84 19 150/105 H 100 06/15/23 00:00 86 19 100 06/14/23 23:30 76 19 143/84 H 100 06/14/23 22:30 77 20 143/86 H 100 06/14/23 22:00 79 19 129/83 100 08/31/23 21:50 80 22 104/74 99 06/14/23 21:30 81 17 104/74 99 06/14/23 21:00 82 24 97 06/14/23 20:30 88 22 100 06/14/23 20:29 88 O2 Del Method O2 Flow Rate 06/15/23 05:05 06/15/23 05:05 Nasal Cannula 4 06/15/23 05:05 Nasal Cannula 4 06/15/23 04:00 06/15/23 03:34 06/15/23 03:30 06/15/23 03:00 06/15/23 02:30 06/15/23 02:00 06/15/23 01:30 06/15/23 00:58 06/15/23 01:00 06/15/23 00:01 06/15/23 00:00 06/14/23 23:30 06/14/23 22:30 06/14/23 22:00 06/14/23 21:50 06/14/23 21:30 06/14/23 21:00 06/14/23 20:30 06/14/23 20:29 Resident Activity Tracking Resident Involvement: Resident Care Provided Care Provided: Adult Hospital Medicine
[2023-06-15] MEDS: PANTOprazole 40 MG TAB PO SCH ×2 (08:15→20:26)
[2023-06-15] MEDS: CYANOCOBALAMIN (B-12) 500 MCG TABLET PO SCH (08:15)
[2023-06-15] MEDS: GABAPENTIN 100 MG CAP PO SCH ×2 (08:16→21:41)
[2023-06-15] MEDS: MYCOPHENOLATE MOFETIL 250 MG CAP PO SCH ×2 (08:16→20:26)
[2023-06-15] MEDS: busPIRone 5 MG TAB PO SCH (08:16)
[2023-06-15] MEDS: SILDENAFIL CITRATE 20 MG TABLET PO SCH ×3 (08:17→20:27)
[2023-06-15] MEDS ORDERED: FUROSEMIDE 40 MG/4 ML VIAL IV SCH (09:00)
[2023-06-15] MEDS ORDERED: POTASSIUM CHLORIDE CRTAB 20 MEQ TABCR PO SCH (09:00)
[2023-06-15] MEDS ORDERED: predniSONE 10 MG TABLET PO SCH (09:00)
[2023-06-15] MEDS ORDERED: predniSONE 20 MG TAB PO STA (15:00)
--- NOTE | 2023-06-15 19:48 | Billing Data ---
Date of Service June 15, 2023 Coding Level of Care Code 59046 INT INP/OBS CARE
[2023-06-15] MEDS: AMITRIPTYLINE HCL 25 MG TAB PO SCH (20:27)
[2023-06-15] MEDS: lamoTRIgine 100 MG TAB PO SCH (20:27)
[2023-06-16] MEDS: LEVOTHYROXINE SODIUM 137 MCG TABLET PO SCH (06:28)
[2023-06-16] MEDS: HEPARIN SOD 5,000 UNIT/0.5 ML VIAL SQ SCH ×3 (06:28→21:52)
--- NOTE | 2023-06-16 07:21 | Hospitalist Progress Note ---
Date of Service June 16, 2023 Assessment & Plan (1) Exertional dyspnea: Plan: Exertional Dyspnea likely secondary to Interstitial Lung Disease - Most likely etiology secondary to ILD - BNP 65, trop 71.8, creatinine 1.37 on admission. - Possible bump in creatinine from fluid overload vs other etiology. - EKG NSR w/ LBBB. - Sats down to the 70's on exertion at home, 100% on baseline 3L at rest in the ED. - Echo completed: Moderately reduced systolic function, EF 35-40%. Global hypokinesis, septal motion consistent with bundle branch block. Moderated concentric LVH, mild pulm. HTN. - When compared to prior study (02/2023, LV systolic function declined - This current exertional dyspnea and leg swelling may be due to fluid overload from steroid use vs increased pulm HTN - Was given dose of Lasix-> plan to hold further diuretics at this time think edema likely secondary to pulm HTN - Increased prednisone from 10mg daily to 50mg daily (on 06/15), overall noting some improvement of symptoms today - Patient requests looking into getting a motorized scooter to help with increased independence after discharge. Will notify case management to help facilitate this. LE edema - Likely secondary to pulmonary HTN, hold on further diuretics - Patient notes mild improvement in edema today Elevated Troponin - Tropin trended to peak, no active chest pain, EKG NSR w/ LBBB. - May have been demand ischemia, patient stated heart was racing quite a bit with exertion. Pulm HTN - Continue home medications sildenafil 20mg TID, mycophenolate 500mg BID. DM2 - A1c from 02.15. - Diet controlled GERD - Continue home pantoprazole. IBS - Diarrhea bouts, improving. Hypothyroidism - Continue home levothyroxine. F/E/N/GI: Regular DVT Prophylaxis: Heparin 5k q8h due to potential GALA. Code Status: Conditional, no machines, CPR and shock okay but patient would not like to be hooked up to a machine such as intubation. (2) Localized swelling of both lower legs: (3) Elevated troponin: (4) Pulmonary hypertension: (5) Interstitial lung disease: (6) Diabetes mellitus type II, controlled: (7) On home oxygen therapy: (8) PSVT (paroxysmal supraventricular tachycardia): (9) Left bundle branch block: (10) GERD (gastroesophageal reflux disease): (11) IBS (irritable bowel syndrome): (12) Hypothyroidism: Admission and Anticipated Discharge Date Admission Date: June 15, 2023 Supervising Physician Co-Signing Physician Notes I personally examined the patient and verified all mcclure points of history and exam, discussed case, and agree with decision making with Dr Anne breathing and swelling are a bit better. Vitals noted, in general she is awake and alert pleasant, breathing unlabored no accessory muscles good effort skin no rashes no pallor or icterus, bilateral lower extremity trace edema. Acute right-sided CHF due to ILD and pulmonary hypertensionprobably all real ly related to ILD worsening versus flareimproving. continue steroids. DVT prophylaxis with heparin subcu Subjective Patient seen and examined at bedside. No acute events reported overnight. She states that she is feeling a bit better today- her O2 sat continues to drop with movement but she is feeling her endurance is improving a bit. Denies chest pain. Review of Systems Review of Systems: As per above Physical Exam Eyes: + anicteric sclerae; no conjunctival abnormality ENMT: Ears: no external ear abnormality Nose: no external nose abnormality Moist mucous membranes Respiratory: No respiratory distress at rest, nasal cannula in place. +Rales at bilateral lung bases. Cardiovascular: Rate/Rhythm: regular rate and regular rhythm +1 pitting edema of bilateral lower extremities Gastrointestinal (Abdomen): Abdomen soft, nontender, nondistended. Skin: no rashes, warm and dry Psychiatric: A+Ox3, euthymic affect Results & Data Results & Data Vital Signs (Past 12 Hours) Vital Signs Temp Pulse Pulse Pulse Resp BP Pulse Ox 06/16/23 03:39 36.6 C 69 18 117/67 99 06/16/23 00:09 84 06/16/23 00:09 06/15/23 22:00 36.9 C 81 18 126/81 98 O2 Del Method O2 Flow Rate 06/16/23 03:39 Nasal Cannula 4 06/16/23 00:09 06/16/23 00:09 Nasal Cannula 4 06/15/23 22:00 Nasal Cannula 3 Resident Activity Tracking Resident Involvement: Resident Care Provided Care Provided: Adult Hospital Medicine
[2023-06-16] MEDS: PANTOprazole 40 MG TAB PO SCH ×2 (08:10→21:54)
[2023-06-16] MEDS: SILDENAFIL CITRATE 20 MG TABLET PO SCH ×3 (08:11→21:52)
[2023-06-16] MEDS: CYANOCOBALAMIN (B-12) 500 MCG TABLET PO SCH (08:11)
[2023-06-16] MEDS: MYCOPHENOLATE MOFETIL 250 MG CAP PO SCH ×2 (08:11→21:54)
[2023-06-16] MEDS: busPIRone 5 MG TAB PO SCH (08:11)
[2023-06-16] MEDS: predniSONE 50 MG TAB PO SCH (08:11)
[2023-06-16] MEDS: GABAPENTIN 100 MG CAP PO SCH ×2 (08:12→21:54)
[2023-06-16 08:41] LABS: Basophils # (auto) 0.02 K/uL (0.00-0.20); Basophils % (auto) 0.2 %; Hematocrit (blood only) 38.4 % (37.0-47.0); Hemoglobin 12.1 g/dl (12.0-16.0); Immature Granulocytes # (auto) 0.06 K/uL (0.01-0.20); Immature Granulocytes % (auto) 0.7 %; Lymphocytes % (auto) 9.6 %; Mean Corpuscular Hemoglobin 26.9 pg (25.0-34.0); Mean Corpuscular Hgb Conc 31.5 g/dL (32.0-36.0); Mean Corpuscular Volume 85.3 fL (80.0-100.0); Mean Platelet Volume 11.3 fL (9.4-12.4); Monocytes % (auto) 4.8 %; Neutrophils # (auto) 7.05 K/uL (1.40-6.50); Neutrophils % (auto) 84.7 %; Platelet Count 266 K/uL (130-400); RDW Coefficient of Variation 15.3 % (11.5-14.5); RDW Standard Deviation 47.3 fL (36.4-46.3); White Blood Count 8.33 K/ul (4.8-10.8)
[2023-06-16 09:17] LABS: Albumin Globulin Ratio 1.4 (0.9-2); Albumin Level 3.8 gm/dl (3.4-5.0); BUN Creatinine Ratio 19.6 (10-20); Bilirubin,Total 0.3 mg/dl (0.2-1.0); Calcium 9.3 mg/dl (8.6-10.3); Creatinine Clr Calc Pharmacy 47.8 ml/min; Est GFR (Non-African American) 48.4 ml/min; Globulin 2.7 gm/dl (2.5-4.0); Magnesium 2.2 mg/dl (1.7-2.4); Phosphorus 2.8 mg/dl (2.5-4.9); Total Protein 6.5 gm/dl (6.0-8.3)
--- NOTE | 2023-06-16 10:07 | XCELERA ---
[id number] [id number]
--- NOTE | 2023-06-16 19:06 | Billing Data ---
Date of Service June 16, 2023 Coding Level of Care Code 86838 SUB INP/OBS CARE
[2023-06-16] MEDS: lamoTRIgine 100 MG TAB PO SCH (21:53)
[2023-06-16] MEDS: AMITRIPTYLINE HCL 25 MG TAB PO SCH (21:54)
[2023-06-17 06:06] LABS: Basophils # (auto) 0.03 K/uL (0.00-0.20); Basophils % (auto) 0.2 %; Eosinophils # (auto) 0.05 K/uL (0.00-0.50); Eosinophils % (auto) 0.4 %; Hematocrit (blood only) 39.6 % (37.0-47.0); Hemoglobin 12.3 g/dl (12.0-16.0); Immature Granulocytes # (auto) 0.11 K/uL (0.01-0.20); Immature Granulocytes % (auto) 0.8 %; Lymphocytes # (auto) 1.42 K/uL (1.20-3.40); Lymphocytes % (auto) 10.5 %; Mean Corpuscular Hemoglobin 27.2 pg (25.0-34.0); Mean Corpuscular Hgb Conc 31.1 g/dL (32.0-36.0); Mean Corpuscular Volume 87.6 fL (80.0-100.0); Mean Platelet Volume 11.3 fL (9.4-12.4); Monocytes % (auto) 8.2 %; Neutrophils # (auto) 10.78 K/uL (1.40-6.50); Neutrophils % (auto) 79.9 %; Platelet Count 300 K/uL (130-400); RDW Coefficient of Variation 15.4 % (11.5-14.5); RDW Standard Deviation 49.1 fL (36.4-46.3); Red Blood Count 4.52 M/uL (4.20-5.40); White Blood Count 13.49 K/ul (4.8-10.8)
[2023-06-17 06:41] LABS: Albumin Globulin Ratio 1.3 (0.9-2); Albumin Level 3.7 gm/dl (3.4-5.0); BUN Creatinine Ratio 25.6 (10-20); Bilirubin,Total 0.2 mg/dl (0.2-1.0); Creatinine Clr Calc Pharmacy 46.2 ml/min; Est GFR (African American) 53.2 ml/min; Est GFR (Non-African American) 45.9 ml/min; Globulin 2.8 gm/dl (2.5-4.0); Magnesium 2.1 mg/dl (1.7-2.4); Phosphorus 2.9 mg/dl (2.5-4.9); Potassium 4.1 mmol/L (3.5-5.1); Total Protein 6.5 gm/dl (6.0-8.3)
[2023-06-17] MEDS: HEPARIN SOD 5,000 UNIT/0.5 ML VIAL SQ SCH ×3 (06:46→21:19)
[2023-06-17] MEDS: LEVOTHYROXINE SODIUM 137 MCG TABLET PO SCH (06:50)
--- NOTE | 2023-06-17 07:15 | Hospitalist Progress Note ---
Date of Service June 17, 2023 Assessment & Plan (1) Exertional dyspnea: Plan: Exertional Dyspnea likely secondary to Interstitial Lung Disease - Most likely etiology secondary to ILD - BNP 65, trop 71.8, creatinine 1.37 on admission. - Possible bump in creatinine from fluid overload vs other etiology. - EKG NSR w/ LBBB. - Sats down to the 70's on exertion at home, 100% on baseline 3L at rest in the ED. - Echo completed: Moderately reduced systolic function, EF 35-40%. Global hypokinesis, septal motion consistent with bundle branch block. Moderated concentric LVH, mild pulm. HTN. - When compared to prior study (02/2023, LV systolic function declined - This current exertional dyspnea and leg swelling may be due to fluid overload from steroid use vs increased pulm HTN - Was given dose of Lasix-> plan to hold further diuretics at this time think edema likely secondary to pulm HTN - Increased prednisone from 10mg daily to 50mg daily (on 06/15), overall noting some improvement of symptoms today. Plan to walk today and see if any de saturations. LE edema - Likely secondary to pulmonary HTN, hold on further diuretics - Patient notes mild improvement in edema since admission Elevated Troponin - Tropin trended to peak, no active chest pain, EKG NSR w/ LBBB. - May have been demand ischemia, patient stated heart was racing quite a bit with exertion. Pulm HTN - Continue home medications sildenafil 20mg TID, mycophenolate 500mg BID. DM2 - A1c from 02.15. - Diet controlled GERD - Continue home pantoprazole. IBS - Diarrhea bouts, improving. Hypothyroidism - Continue home levothyroxine. F/E/N/GI: Regular DVT Prophylaxis: Heparin 5k q8h due to potential GALA. Code Status: Conditional, no machines, CPR and shock okay but patient would not like to be hooked up to a machine such as intubation. (2) Localized swelling of both lower legs: (3) Elevated troponin: (4) Pulmonary hypertension: (5) Interstitial lung disease: (6) Diabetes mellitus type II, controlled: (7) On home oxygen therapy: (8) PSVT (paroxysmal supraventricular tachycardia): (9) Left bundle branch block: (10) GERD (gastroesophageal reflux disease): (11) IBS (irritable bowel syndrome): (12) Hypothyroidism: Admission and Anticipated Discharge Date Admission Date: June 15, 2023 Supervising Physician Co-Signing Physician Notes I personally examined the patient and verified all mcclure points of history and exam, discussed case, and agree with decision making with Dr King Breathing continues to be a bit betterwalked around a good bit this afternoonwent to the bathroom, walked over to the other side of the room, walked down the hallway some and then back to her roomnotes that she did drop her pulse ox to about 83%, but she quickly recovered with rest. She feels like she probably would do okay at home, and initially even considers whether or not she can get home tonightbut she notes that her caregiver will probably start Sunday, and feels safer getting home tomorrow whenever it is closer to when the caregiver can start. Vitals noted, in general she is awake and alert pleasant, breathing unlabored no accessory muscles good effort skin no rashes no pallor or icterus, bilateral lower extremity trace edema. Acute right-sided CHF due to ILD and pulmonary hypertensionprobably all really related to ILD worsening versus flareimproving. continue higher dose steroids and probably will taper rather than burst given her situation. DVT prophylaxis with heparin subcu. Probably home tomorrow Subjective Pt seen at bedside this morning. Breathing improving. Has not been up to walk yet. Notes that she does have new caregiver that can start tomorrow. Review of Systems Review of Systems: As per above Physical Exam Physical Exam: Constitutional: well-appearing, no acute distress HEENT: NCAT, no conjunctival injection CV: regular rhythm, no murmur appreciated, extremities well-perfused, nonpitting LE edema Resp: rales at bases, no increased work of breathing MSK: no gross deformities appreciated Skin: warm, dry, no rash appreciated Neuro: alert, oriented, no focal neurologic deficit appreciated Results & Data Results & Data Vital Signs (Past 12 Hours) Vital Signs Temp Pulse Pulse Resp BP Pulse Ox O2 Del Method 06/17/23 03:00 36.8 C 87 18 123/76 97 Nasal Cannula 06/17/23 00:00 Nasal Cannula 06/17/23 00:00 82 06/16/23 22:00 36.8 C 95 H 20 147/72 H 96 Nasal Cannula O2 Flow Rate 06/17/23 03:00 3 06/17/23 00:00 06/17/23 00:00 06/16/23 22:00 3 Resident Activity Tracking Resident Involvement: Resident Care Provided Care Provided: Adult Hospital Medicine
[2023-06-17] MEDS: GABAPENTIN 100 MG CAP PO SCH ×2 (08:06→21:18)
[2023-06-17] MEDS: MYCOPHENOLATE MOFETIL 250 MG CAP PO SCH ×2 (08:06→21:18)
[2023-06-17] MEDS: SILDENAFIL CITRATE 20 MG TABLET PO SCH ×3 (08:06→21:18)
[2023-06-17] MEDS: PANTOprazole 40 MG TAB PO SCH ×2 (08:06→21:19)
[2023-06-17] MEDS: predniSONE 50 MG TAB PO SCH (08:07)
[2023-06-17] MEDS: busPIRone 5 MG TAB PO SCH (08:07)
[2023-06-17] MEDS: CYANOCOBALAMIN (B-12) 500 MCG TABLET PO SCH (08:07)
--- NOTE | 2023-06-17 18:17 | Billing Data ---
Date of Service June 17, 2023 Coding Level of Care Code 36723 SUB INP/OBS CARE
[2023-06-17] MEDS: AMITRIPTYLINE HCL 25 MG TAB PO SCH (21:18)
[2023-06-17] MEDS: lamoTRIgine 100 MG TAB PO SCH (21:18)
[2023-06-18] MEDS: LEVOTHYROXINE SODIUM 137 MCG TABLET PO SCH (06:18)
[2023-06-18] MEDS: HEPARIN SOD 5,000 UNIT/0.5 ML VIAL SQ SCH ×2 (06:19→15:13)
[2023-06-18 06:51] LABS: Basophils # (auto) 0.05 K/uL (0.00-0.20); Basophils % (auto) 0.4 %; Eosinophils # (auto) 0.06 K/uL (0.00-0.50); Eosinophils % (auto) 0.5 %; Hematocrit (blood only) 37.5 % (37.0-47.0); Hemoglobin 11.8 g/dl (12.0-16.0); Immature Granulocytes # (auto) 0.12 K/uL (0.01-0.20); Immature Granulocytes % (auto) 1.1 %; Lymphocytes # (auto) 1.81 K/uL (1.20-3.40); Lymphocytes % (auto) 16.2 %; Mean Corpuscular Hemoglobin 27.1 pg (25.0-34.0); Mean Corpuscular Hgb Conc 31.5 g/dL (32.0-36.0); Monocytes # (auto) 1.11 K/uL (0.11-0.59); Monocytes % (auto) 9.9 %; Neutrophils # (auto) 8.01 K/uL (1.40-6.50); Neutrophils % (auto) 71.9 %; Platelet Count 258 K/uL (130-400); RDW Coefficient of Variation 15.2 % (11.5-14.5); RDW Standard Deviation 47.8 fL (36.4-46.3); Red Blood Count 4.36 M/uL (4.20-5.40); White Blood Count 11.16 K/ul (4.8-10.8)
--- NOTE | 2023-06-18 06:51 | Hospitalist Progress Note ---
Date of Service June 18, 2023 Assessment & Plan (1) Exertional dyspnea: Plan: Exertional Dyspnea likely secondary to Interstitial Lung Disease - Most likely etiology secondary to ILD - BNP 65, trop 71.8, creatinine 1.37 on admission. - Possible bump in creatinine from fluid overload vs other etiology. - EKG NSR w/ LBBB. - Sats down to the 70's on exertion at home, 100% on baseline 3L at rest in the ED. - Echo completed: Moderately reduced systolic function, EF 35-40%. Global hypokinesis, septal motion consistent with bundle branch block. Moderated concentric LVH, mild pulm. HTN. - When compared to prior study (02/2023, LV systolic function declined - This current exertional dyspnea and leg swelling may be due to fluid overload from steroid use vs increased pulm HTN - Was given dose of Lasix-> plan to hold further diuretics at this time think edema likely secondary to pulm HTN - Increased prednisone from 10mg daily to 50mg daily (on 06/15), overall noting some improvement of symptoms today. Plan to walk today and see if any de saturations. LE edema - Likely secondary to pulmonary HTN, hold on further diuretics - Patient notes mild improvement in edema since admission Elevated Troponin - Tropin trended to peak, no active chest pain, EKG NSR w/ LBBB. - May have been demand ischemia, patient stated heart was racing quite a bit with exertion. Pulm HTN - Continue home medications sildenafil 20mg TID, mycophenolate 500mg BID. DM2 - A1c from 02.15. - Diet controlled GERD - Continue home pantoprazole. IBS - Diarrhea bouts, improving. Hypothyroidism - Continue home levothyroxine. F/E/N/GI: Regular DVT Prophylaxis: Heparin 5k q8h due to potential GALA. Code Status: Conditional, no machines, CPR and shock okay but patient would not like to be hooked up to a machine such as intubation. (2) Localized swelling of both lower legs: (3) Elevated troponin: (4) Pulmonary hypertension: (5) Interstitial lung disease: (6) Diabetes mellitus type II, controlled: (7) On home oxygen therapy: (8) PSVT (paroxysmal supraventricular tachycardia): (9) Left bundle branch block: (10) GERD (gastroesophageal reflux disease): (11) IBS (irritable bowel syndrome): (12) Hypothyroidism: Admission and Anticipated Discharge Date Admission Date: June 15, 2023 Review of Systems Review of Systems: As per above Physical Exam Physical Exam: Constitutional: well-appearing, no acute distress HEENT: NCAT, no conjunctival injection CV: regular rhythm, no murmur appreciated, extremities well-perfused, nonpitting LE edema Resp: rales at bases, no increased work of breathing MSK: no gross deformities appreciated Skin: warm, dry, no rash appreciated Neuro: alert, oriented, no focal neurologic deficit appreciated Results & Data Results & Data Vital Signs (Past 12 Hours) Vital Signs Temp Pulse Pulse Resp BP Pulse Ox O2 Del Method 06/17/23 20:14 Nasal Cannula 06/17/23 23:42 73 06/17/23 23:39 36.9 C 74 16 127/83 97 Nasal Cannula 06/17/23 19:46 36.8 C 80 16 127/82 98 Nasal Cannula O2 Flow Rate 06/17/23 20:14 3 06/17/23 23:42 06/17/23 23:39 3 06/17/23 19:46 3
[2023-06-18 07:19] LABS: Calcium 8.8 mg/dl (8.6-10.3); Creatinine Clr Calc Pharmacy 41.3 ml/min; Est GFR (African American) 45.9 ml/min; Est GFR (Non-African American) 39.6 ml/min; Potassium 4.1 mmol/L (3.5-5.1)
[2023-06-18] MEDS: GABAPENTIN 100 MG CAP PO SCH (08:03)
[2023-06-18] MEDS: SILDENAFIL CITRATE 20 MG TABLET PO SCH ×2 (08:03→14:12)
[2023-06-18] MEDS: busPIRone 5 MG TAB PO SCH (08:03)
[2023-06-18] MEDS: PANTOprazole 40 MG TAB PO SCH (08:03)
[2023-06-18] MEDS: MYCOPHENOLATE MOFETIL 250 MG CAP PO SCH (08:03)
[2023-06-18] MEDS: CYANOCOBALAMIN (B-12) 500 MCG TABLET PO SCH (08:04)
[2023-06-18] MEDS: predniSONE 50 MG TAB PO SCH (08:04)
--- NOTE | 2023-06-18 11:20 | Discharge Summary ---
Date of Service June 18, 2023 Admission HPI Per Admitting Provider Marichuy is a 73 year old female w/ PmHx collagen vascular disease ILD on 3L NC chronic oxygen therapy, pulmonary hypertension, paroxysmal SVT, IBS, T2DM, previous CVA, GERD, bipolar disorder, and hypothyroidism coming in to the ED for prolonged bilateral leg swelling. Patient states that 4 weeks ago she started to get bilateral leg swelling. She contacted her PCP office about the leg swelling at the time and was trialed on Lasix 20mg for 5 days. She states that the Lasix helped but when she was finished with the course the swelling came back. She did this for a few more iterations and then did not have Lasix for 1 week leading to the current bilateral leg swelling. She has also had a few episodes of oxygen dropping to the low 70's and one time to 66% when exerting herself. She says there's been a few times where she has some reflux type pain that is relieved with tums but no persistent chest pain. She denies any fevers, chills, cough, nausea, vomiting, urinary symptoms. She has IBS and has had diarrhea that was watery but now mushy. She has some abdominal points of tenderness that hurt with pressing on the area. Upon further evaluation these point tenderness areas sound like trigger points. In the ED WBC 10.90, Na 135, K 3.5, Creat 1.37, troponin 71.8. CXR w/ cardiomegaly w/ emphysema and superimposed changes of chronic interstitial/fibrotic lung disease similar to previous. CTA chest w/o evidence for PE, peripheral prominent chronic interstitial changes w/ subtle honeycombing, no lobar consolidation or pleural effusion. Principal Diagnosis Acute Hypoxic Respiratory failure Discharge Exam Constitutional: well-appearing, no acute distress HEENT: NCAT, no conjunctival injection CV: regular rhythm, no murmur appreciated, extremities well-perfused, nonpitting LE edema Resp: rales at bases, no increased work of breathing MSK: no gross deformities appreciated Skin: warm, dry, no rash appreciated Neuro: alert, oriented, no focal neurologic deficit appreciated Discharge Data Allergies Allergy/AdvReac Type Severity Reaction Status Date / Time latex Allergy Intermediate Rash, hand Verified 06/14/23 23:00 swelling Sulfa (Sulfonamide Allergy Intermediate Rash Verified 06/14/23 23:00 Antibiotics) Penicillins Allergy Unknown Unknown Verified 06/14/23 23:00 reaction (as teenager) morphine AdvReac Intermediate Anxiety Verified 06/14/23 23:00 Consultations 06/14/23 22:26 ED Decision to Admit Stat Ordered Studies 06/14/23 19:59 CT angio chest PE protocol Stat Laboratory Results WBC 11.16 K/ul (4.8-10.8) H 06/18/23 06:31 RBC 4.36 M/uL (4.20-5.40) 06/18/23 06:31 Hgb 11.8 g/dl (12.0-16.0) L 06/18/23 06:31 Hct 37.5 % (37.0-47.0) 06/18/23 06:31 MCV 86.0 fL (80.0-100.0) 06/18/23 06:31 MCH 27.1 pg (25.0-34.0) 06/18/23 06:31 MCHC 31.5 g/dL (32.0-36.0) L 06/18/23 06:31 RDW Std Deviation 47.8 fL (36.4-46.3) H 06/18/23 06:31 RDW Coeff of Ese 15.2 % (11.5-14.5) H 06/18/23 06:31 Plt Count 258 K/uL (130-400) 06/18/23 06:31 MPV 11.0 fL (9.4-12.4) 06/18/23 06:31 Immature Gran % (Auto) 1.1 % 06/18/23 06:31 Neut % (Auto) 71.9 % 06/18/23 06:31 Lymph % (Auto) 16.2 % 06/18/23 06:31 Brown % (Auto) 9.9 % 06/18/23 06:31 Eos % (Auto) 0.5 % 06/18/23 06:31 Baso % (Auto) 0.4 % 06/18/23 06:31 Neut # (Auto) 8.01 K/uL (1.40-6.50) H 06/18/23 06:31 Lymph # (Auto) 1.81 K/uL (1.20-3.40) 06/18/23 06:31 Brown # (Auto) 1.11 K/uL (0.11-0.59) H 06/18/23 06:31 Eos # (Auto) 0.06 K/uL (0.00-0.50) 06/18/23 06:31 Baso # (Auto) 0.05 K/uL (0.00-0.20) 06/18/23 06:31 Immature Gran # (Auto) 0.12 K/uL (0.01-0.20) 06/18/23 06:31 Sodium 142 mmol/L (136-145) 06/18/23 11:10 Potassium 3.7 mmol/L (3.5-5.1) 06/18/23 11:10 Chloride 110 mmol/L (98-107) H 06/18/23 11:10 Carbon Dioxide 25 mmol/L (21-32) 06/18/23 11:10 Anion Gap 7 (3-11) 06/18/23 11:10 BUN 30 mg/dl (6-23) H 06/18/23 11:10 Creatinine 1.39 mg/dl (0.6-1.2) H 06/18/23 11:10 Est Cr Clr Drug Dosing 39.2 ml/min 06/18/23 11:10 Est GFR ( Amer) 43.2 ml/min 06/18/23 11:10 Est GFR (Non-Af Amer) 37.2 ml/min 06/18/23 11:10 BUN/Creatinine Ratio 21.6 (10-20) H 06/18/23 11:10 Glucose 140 mg/dl (70-99(Fasting)) H 06/18/23 11:10 Calcium 8.7 mg/dl (8.6-10.3) 06/18/23 11:10 Phosphorus 2.9 mg/dl (2.5-4.9) 06/17/23 05:13 Magnesium 2.1 mg/dl (1.7-2.4) 06/17/23 05:13 Total Bilirubin 0.2 mg/dl (0.2-1.0) 06/17/23 05:13 AST 14 U/L (13-39) 06/17/23 05:13 ALT 9 U/L (7-52) 06/17/23 05:13 Alkaline Phosphatase 87 U/L (34-104) 06/17/23 05:13 Troponin I High Sens 58.7 pg/ml (0-14) H* D 06/15/23 01:00 B-Natriuretic Peptide 65 pg/ml (0-100) 06/14/23 18:14 Total Protein 6.5 gm/dl (6.0-8.3) 06/17/23 05:13 Albumin 3.7 gm/dl (3.4-5.0) 06/17/23 05:13 Globulin 2.8 gm/dl (2.5-4.0) 06/17/23 05:13 Albumin/Globulin Ratio 1.3 (0.9-2) 06/17/23 05:13 Urine Color Yellow 06/15/23 00:42 Urine Appearance Clear (Clear) 06/15/23 00:42 Urine pH 5.5 (4.5-7.5) 06/15/23 00:42 Ur Specific [place] 1.041 (1.000-1.030) H 06/15/23 00:42 Urine Protein Negative (Negative) 06/15/23 00:42 Urine Glucose (UA) Negative (Negative) 06/15/23 00:42 Urine Ketones Trace (Negative) H 06/15/23 00:42 Urine Blood Negative (Negative) 06/15/23 00:42 Urine Nitrite Negative (Negative) 06/15/23 00:42 Urine Bilirubin Negative (Negative) 06/15/23 00:42 Urine Urobilinogen Negative (Negative) 06/15/23 00:42 Ur Leukocyte Esterase Negative (Negative) 06/15/23 00:42 SARS-CoV-2, RNA, NAAT NEGATIVE (NEGATIVE) 06/15/23 Unknown Impressions Chest X-Ray 06/14/23 17:36 SINGLE VIEW CHEST CLINICAL HISTORY: Dyspnea. Lower extremity edema FINDINGS: An AP, portable, upright chest radiograph is compared to study dated 03/02/2023. Correlation is made with chest CT dated 01/05/2022. The heart is enlarged. The pulmonary vasculature is noncongested. Emphysema with superimposed changes of chronic fibrotic lung disease is similar to previous. Subpleural reticulation is seen throughout both lungs. Scarring/opacities at the lung bases are similar to previous. No superimposed airspace consolidation or large pleural effusion is identified. No pneumothorax is seen. The skeletal structures are osteopenic. The bony thorax is grossly intact. IMPRESSION: Cardiomegaly with emphysema and superimposed changes of chronic interstitial/fibrotic lung disease are similar to previous. No acute cardiopulmonary abnormality is identified. ACT 112: Negative or not required by law. Electronically signed by: Jose Maria Shaw M.D. 06/14/2023 10:18 PM Chest CTA 06/14/23 19:59 Exam(s): CTA CHEST EXAM: CT Angiography Chest With Intravenous Contrast CLINICAL HISTORY: Rule out PE. TECHNIQUE: Axial computed tomographic angiography images of the chest with intravenous contrast. CTDI is 27.85 mGy and DLP is 787.97 mGy-cm. Automated exposure control was utilized for the study. A dose lowering technique was utilized adhering to the principles of ALARA. MIP reconstructed images were created and reviewed. COMPARISON: CT high-resolution chest 12/26/2022; CT PE 01/05/2022 FINDINGS: Limitations: There is respiratory artifact, which degrades image quality on multiple image slices. Pulmonary arteries: Accounting for limitations with respiratory artifact, there is no definite evidence for pulmonary embolism. Aorta: No acute findings. No thoracic aortic aneurysm. Lungs: Peripheral prominent chronic interstitial changes with subtle honeycombing at the lung bases is similar in morphology and appearance. No lobar consolidation identified. Pleural space: Unremarkable. No significant effusion. No pneumothorax. Heart: Cardiac chambers are stable and size. No pericardial effusion. Bones/joints: No acute fracture. No dislocation. Soft tissues: Unremarkable. Lymph nodes: Similar nonspecific AP window and paratracheal lymph nodes without developing lymphadenopathy. IMPRESSION: 1. Accounting for limitations with respiratory artifact, there is no definite evidence for pulmonary embolism. 2. Peripheral prominent chronic interstitial changes with subtle honeycombing at the lung bases consistent with interstitial fibrosis is similar in morphology and appearance. No lobar consolidation identified. No pleural effusion or pneumothorax. Electronically signed by: Uriah Franco MD 06/14/23 20:52 PM Hospital Course (1) Exertional dyspnea: Exertional Dyspnea likely secondary to Interstitial Lung Disease - Most likely etiology secondary to ILD - BNP 65, trop 71.8, creatinine 1.37 on admission. - EKG NSR w/ LBBB. - Sats down to the 70's on exertion at home, 100% on baseline 3L at rest in the ED. - Echo completed: Moderately reduced systolic function, EF 35-40%. Global hypokinesis, septal motion consistent with bundle branch block. Moderated concentric LVH, mild pulm. HTN. - When compared to prior study (02/2023, LV systolic function declined - This current exertional dyspnea and leg swelling may be due to fluid overload from steroid use vs increased pulm HTN - Was given dose of Lasix-> plan to hold further diuretics at this time think edema likely secondary to pulm HTN - Increased prednisone from 10mg daily to 50mg daily (on 06/15), overall improvement in symptoms. Able to ambulate without desaturations and feels breathing has significantly improved - Plan for prednisone taper 40mg x 3 days, 30mg x 3 days, 20mg x 3 days and then resume 10mg daily LE edema - Likely secondary to pulmonary HTN, hold on further diuretics - Patient notes mild improvement in edema since admission - holding on further diuretics Elevated Creatine - slightly elevated creatine on day of d/c - could be secondary to increased dose of lasix - repeat BMP at PCP f/u appointment Elevated Troponin - Tropin trended to peak, no active chest pain, EKG NSR w/ LBBB. - May have been demand ischemia, patient stated heart was racing quite a bit with exertion. Pulm HTN - Continue home medications sildenafil 20mg TID, mycophenolate 500mg BID. DM2 - A1c from 02.15. - Diet controlled GERD - Continue home pantoprazole. IBS - Diarrhea bouts, improving. Hypothyroidism - Continue home levothyroxine. (2) Localized swelling of both lower legs: (3) Elevated troponin: (4) Pulmonary hypertension: (5) Interstitial lung disease: (6) Diabetes mellitus type II, controlled: (7) On home oxygen therapy: (8) PSVT (paroxysmal supraventricular tachycardia): (9) Left bundle branch block: (10) GERD (gastroesophageal reflux disease): (11) IBS (irritable bowel syndrome): (12) Hypothyroidism: Total Time Total Time Spent Total Time Spent (In Minutes): 35 min Discharge Plan Discharge Items Patient Disposition: Home - Self-Care Reason For Visit: HYPOZIA, LEG SWELLING Discharge Diagnosis: Acute Hypoxic Respitory Failure Activity: Per Instructions section Non-emergency contact: Primary Care Provider Call non-emergency contact if: you have any medication questions and your symptoms worsen Follow-up/Referrals: Ted Singh MD [Primary Care Provider] - Diet: Regular Addtl Attending Provider Instructions: You were admitted for shortness of breath and oxygen desaturations with exertion in addition to swelling of your legs. We think that both of these things were likely secondary to your intrastrial lung disease. We increased your prednisone dosing and overall your breathing improved. We will plan to send you home on with a prednisone taper. You should take 40mg for the next 3 days, 30mg for 3 days, 20mg for 3 days and then resume your normal 10mg dosing. Your first dose of the 40mg will be tomorrow. We would like you to follow-up with Dr. Singh this week. His office should reach out to you to schedule an appointment, you can also call them to schedule. We are working on getting home PT set up, they should reach out to you. *please note that Mrs zapata has fairly significant pulmonary fibrosis that unfortunately limits her ability to exert. it is usually a progressive disease that worsens over time. Pending Studies at Discharge: No Stand-Alone Forms: [facility] Medications and DC Order Prescriptions: New prednisone 10 mg tablet See Taper PO DAILY Qty: 27 0RF Taper: Taper, Blank 40 mg DAILY for 3 Days 30 mg DAILY for 3 Days 20 mg DAILY for 3 Days Rx Instructions: 40mg for 3 days, 30mg for 3 days, 20mg for 3 days. After 9 days should resume chronic 10mg dose. Continued amitriptyline 25 mg tablet 25 mg PO HS Qty: 90 3RF tramadol 50 mg tablet 50 mg PO Q6H PRN (Reason: pain) Qty: 20 0RF sildenafil (pulm.hypertension) 20 mg tablet 20 mg PO TID Qty: 90 2RF Rx Instructions: administer doses at least 4-6 hours apart mycophenolate mofetil 250 mg capsule 500 mg PO BID Qty: 120 5RF pantoprazole 40 mg tablet,delayed release (DR/EC) 40 mg PO BID Qty: 30 2RF topiramate [Topamax] 100 mg tablet 100 mg PO BID Patient Comments: takes in afternoon= "I havent taken that in a long time." levothyroxine 137 mcg tablet 137 mcg PO QAM buspirone 10 mg tablet 20 mg PO DAILY cyanocobalamin (vitamin B-12) 1,000 mcg capsule 1,000 mcg PO DAILY Qty: 30 0RF lamotrigine 150 mg tablet 150 mg PO HS acetaminophen [Tylenol] 325 mg Tablet 650 mg PO QID PRN (Reason: Pain) gabapentin 100 mg capsule 100 mg PO BID Held prednisone 10 mg tablet 10 mg PO DAILY Qty: 30 2RF Hold Instructions: Resume on 06/28/23. Resume once prednisone taper is complete. Discontinued furosemide 20 mg tablet 20 mg PO DIRECTED Rx Instructions: has not had for over a week. Discharge Orders: Discharge Order (Routine); Ordered 06/18/23 Ordered By: Alanna King Admission Data Admit Date/Time: 06/15/23 00:39 Attending Provider: Merry Huff Admit Provider: Jose Angel John Primary Care Provider: Ted Singh Other Providers: Joseph Romero ; Jarad Prado ; Dell Harden Other Interventions: Discharge Summary Assessment (RN) Last Done: 06/18/23 13:59 Supervising Physician Co-Signing Physician Notes I personally examined the patient and verified mcclure points of history and exam, discussed case, and agree with decision making and plan documented by Dr. King. Patient states her symptoms are improving that she feels back to her baseline, patient with nonlabored breathing on 3 L of oxygen during exam, states she has been walking with physical therapy and has been feeling steady on her feet. Patient appears comfortable, lungs clear b/l to auscultation, regular rate and rhythm, no acute distress. Patient will have a caregiver coming to her home tomorrow to assist her with ADLs. She is open to home PT. Patient interested in obtaining scooter, will discuss this further with PCP as she has been struggling with ambulation. Patient will f/u with PCP, recommend BMP 1 week after discharge. Resident Activity Tracking Resident Involvement: Resident Care Provided Care Provided: Adult Hospital Medicine
[2023-06-18 11:47] LABS: Calcium 8.7 mg/dl (8.6-10.3); Potassium 3.7 mmol/L (3.5-5.1)
[2023-06-18 11:53] LABS: BUN Creatinine Ratio 21.6 (10-20); Creatinine Clr Calc Pharmacy 39.2 ml/min; Est GFR (African American) 43.2 ml/min; Est GFR (Non-African American) 37.2 ml/min
--- NOTE | 2023-06-18 15:47 | Electrocardiogram Report ---
Test Reason : Blood Pressure : / mmHG Vent. Rate : 092 BPM Atrial Rate : 092 BPM P-R Int : 148 ms QRS Dur : 128 ms QT Int : 384 ms P-R-T Axes : -06 -20 118 degrees QTc Int : 474 ms Normal sinus rhythm Left bundle branch block Abnormal ECG When compared with ECG of 02-MAR-2023 09:45, Premature ventricular complexes are no longer Present Confirmed by Jamie Morrow ([id number]) on 06/18/2023 3:47:04 PM Referred By: Ted Singh Confirmed By:Jamie Morrow
--- OUTSIDE RECORDS SUMMARY | 2023-06-25 12:24 | External Medical Summary | Continuity of Care Document ---
Author Name Unknown Organization [place] [id number] Address [address] [place] [phone] Care Team Providers Care Cadmium Liquor Maker Name Role Phone Ted Singh Primary Care Physician [phone] Encounter [facility] [id number] Date(s): 05/14/23 - 05/14/23 [facility] [address] [place] [id number] [facility] [address] [place] [id number] Encounter Diagnosis Pes planus of both feet(Discharge Diagnosis) - 05/14/23 Arthritis of both feet(Discharge Diagnosis) - 05/14/23 Discharge Disposition: Home or Self Care Attending Physician: BRISA Maradiaga Christina L Referring Physician: MD Singh Michael P Allergies, Adverse Reactions, Alerts Substance Reaction Severity Status morphine hives Active penicillins hives Active sulfa drugs hives Active Latex rash Active Assessment and Plan Extracted from: Title:Follow Up Visit Author:BRISA Maradiaga, Manny Liu Date:05/14/23 1.Pes planus of both feet At this point I have asked patient to restart at home PT and provided her a prescriptionshe is understanding I did discuss thatshderrell may always continue to have some lack of strength and instability on the right side secondary to her strokeunfortunately I think that time in PT will help to build some of that but it may neverreturn to how it was prior to her strokeshe does have a home health aide and walks with the aid of anrolling walker which she should continuethere were no new concerns at today's visit recommend 4-month follow-up. 16-minute follow-up visit, 5-minute chart review, 11 minutes [id number]. 2.Arthritis of both feet Immunizations Given and Recorded Vaccine Date Status Refusal Reason influenza virus vaccine, inactivated 08/03/22 Give n influenza virus vaccine, inactivated 10/19/21 Give n influenza virus vaccine, inactivated 07/16/18 Give n SARS-CoV-2 (COVID-19) mRNA BNT-162b2 vax 1 01/18/21 Recorded SARS-CoV-2 (COVID-19) mRNA BNT-162b2 vax 2 12/11/20 Recorded 1Result Comment: 2021-10-19: Historical information-source unspecified 2Result Comment: 2021-10-19: Historical information-source unspecified Medications amitriptyline 25 mg oral tablet Start: 01/03/23 8:33:00 EDT, 1 tab, PO, qhs, Disp# 90 tab, Refills: 1, Pharmacy: [id number] Start Date: 01/03/23 Stop Date: 07/02/23 Status: Ordered busPIRone 10 mg oral tablet Start: 09/04/22 6:58:00 EST, 1 tab, PO, bid, Disp# 60 tab, Refills: 0, Pharmacy: [facility] Start Date: 09/04/22 Stop Date: 10/04/22 Status: Ordered diclofenac 1% topical gel Start: 02/05/23 9:12:00 EDT, See Instructions, Disp# 100 g, Refills: 0, APPLY 4 GRAMS TOPICALLY TO THE AFFECTED AREA 4 TIMES DAILY NEEDED FOR PAIN , Pharmacy: [facility] Start Date: 02/05/23 Status: Ordered gabapentin 100 mg oral capsule Start: 04/18/23 12:46:00 EDT, See Instructions, Disp# 60 cap, Refills: 0, TAKE 1 CAPSULE BY MOUTH TWICE DAILY, Pharmacy: [facility] Start Date: 04/18/23 Status: Ordered ibuprofen 200 mg oral tablet Start: 03/01/23 14:08:00 EDT, 2 tab, PO, q6h, PRN: as needed for pain Start Date: 03/01/23 Status: Ordered lamoTRIgine 150 mg oral tablet Start: 03/01/23 14:07:00 EDT, 1 tab, PO, Daily Start Date: 03/01/23 Status: Ordered levothyroxine 137 mcg (0.137 mg) oral tablet Start: 11/06/22 7:07:00 EST, See Instructions, Disp# 30 tab, Refills: 5, TAKE 1 TABLET BY MOUTH EVERY DAY, Pharmacy: [facility] Start Date: 11/06/22 Status: Ordered mycophenolate mofetil 500 mg oral tablet Start: 03/01/23 14:08:00 EDT, 1 tab, PO, bid Start Date: 03/01/23 Status: Ordered pantoprazole 40 mg oral delayed release tablet Start: 03/16/23 14:07:00 EDT, 1 tab, PO, bid, Disp# 180 tab, Refills: 0, Pharmacy: [facility] Start Date: 03/16/23 Stop Date: 06/14/23 Status: Ordered PREDNISONE 5 MG TABS Start: 12/28/22 10:00:00 EDT, PREDNISONE 5 MG TABS Start Date: 12/28/22 Status: Ordered predniSONE 10 mg oral tablet Start: 01/08/23 9:36:00 EDT, pt. states they are now on 5mg Start Date: 01/08/23 Status: Ordered Senokot Extra 8.6 mg oral tablet Start: 04/26/22 14:20:00 EDT, 1 tab, PO, bid, PRN: as needed for constipation Start Date: 04/26/22 Status: Ordered sildenafil 20 mg oral tablet Start: 03/01/23 14:11:00 EDT, 1 tab, PO, tid Start Date: 03/01/23 Status: Ordered Topamax 100 mg oral tablet Start: 09/08/22 16:24:00 EST, 1 tab, PO, bid, Disp# 60 tab, Refills: 2, Pharmacy: [facility] Start Date: 09/08/22 Stop Date: 12/07/22 Status: Ordered traMADol 50 mg oral tablet Start: 04/26/22 14:13:00 EDT, 1 tab, PO, q6h, PRN: as needed for pain Start Date: 04/26/22 Status: Ordered unknown medication Start: 04/26/22 14:22:00 EDT, oxygen at 4 mL/min via NC, continuous Start Date: 04/26/22 Status: Ordered Vitamin B-12 1000 mcg oral tablet Start: 04/11/23 14:00:00 EDT, 1 tab, PO, Daily, Disp# 30 tab, Refills: 5, Pharmacy: [facility] Start Date: 04/11/23 Status: Ordered Mental Status 05/14/23 Barriers to Learning one year None evide nt Mandatory Health Literacy Documentation Yes Health Literacy Communication Barriers N ever Primary Language Lao Problem List Condition Confirmation Course Effective Dates Status H ealth Status Informant Asthma Confirmed Active Arthritis of both feet Confirmed Active Bipolar disorder Confirmed Active Pes anserine bursitis Confirmed Active Cough Confirmed Active Thyroid disease Confirmed Active Fibromyalgia Confirmed Active GERD (gastroesophageal reflux disease) Confirmed Active History of gastric surgery Confirmed Active Hyperlipidemia Confirmed Active IT band syndrome Confirmed Active Interstitial lung disease Confirmed Active IBS (irritable bowel syndrome) Confirmed Active Osteoarthritis of both knees Confirmed Active Spinal stenosis Confirmed Active Pes planus of both feet Confirmed Active Diagnosis Diagnosis Type Effective Dates Health Status Cl inical Service Informant Pes planus of both feet Discharge Diagnosis 05/14/23 Arthritis of both feet Discharge Diagnosis 05/14/23 Procedures Procedure Date Related Diagnosis Body Site Status Bronchoscopy 1 08/01/22 Completed DEXA (dual energy X-ray phot on absorptiometry) scan of lateral spine 2 10/15/16 Completed Colonoscopy 3 10/15/15 Completed Arthroscopy Completed Bronchoscopy Completed Cholecystectomy Completed Gastric 4 Completed Hernia repair Completed Hysterectomy Completed Knee arthroplasty [address] 6 Completed 1cultures done 2osteopenia 3wnl 4post gastric banding surgery 5right total knee revision with removal of femoral and tibial components and conversion to a right knee hinged prosthesis. 6loop recorder Social History Social History Type Response Smoking Status Never smoked cigaret viviane Sex Female Primary care Note * BRISA Maradiaga, Isabella Liu: PERFORM Event Display: Ortho Outpt Note Authored Date: [id number] Chief Complaint B/L foot f/u Primary Care Provider MD Singh Michael P Referring Provider MD Singh Michael P Subjective Patient is a very pleasant 73-year-old female last seen January 08, 2023. History of right foot pain secondary to arthritis. History of 2 previous knee surgeries and a stroke, I have recommended topical Voltaren gel as well as home physical therapy. She had finished home PT in Decembershe noted a little bit of improvement not significantshe was still having some mild right foot painbut it was only presentwhen she was not wearing her compression hose or supportive sneakers. -Patient is still having a great deal of discomfortshe notes that the right foot she noted when she was in PT she was doing much betterunfortunately this was then completed she was interested in restarting PTshe is also dealing with continued likelynumbness and pain secondary tostroke issues where she is developing numbnessdid see herorthopedic surgeon who noted her knee was not well aligned and in place. Review of Systems Positive for Eliquis use Objective Physical Exam Problem focused bilateral feet: Pedis pulse palpable 1 out of 4, posterior tibial pulse palpable 1 out of 4capillary refill time less than 3 seconds skin turgor is good to all digits of both feet pedal hair is noted to be present. Neurovascular status grossly intact all digits of both feet. I am not appreciating thesignificant swelling necessarily on the dorsal aspect of the right footpresent at present previous follow-up although she does have an area of ecchymosis medially she is not sure how this occurredupon palpation of the area I was not able to reproduce significant tendernessshe really notes its more and overall instabilityand numbness in the right lower extremity. History of stroke that did affect the right side. X-ray dictation 3 views right foot: Taken at September 19, 2022 visit X-ray dictation 3 views left foot:Taken at September 19, 2022 visit Assessment/Plan 1.Pes planus of both feet At this point I have asked patient to restart at home PT and provided her a prescriptionshe is understanding I did discuss thatshderrell may always continue to have some lack of strength and instability on the right side secondary to her strokeunfortunately I think that time in PT will help to build some of that but it may neverreturn to how it was prior to her strokeshe does have a home health aide and walks with the aid of anrolling walker which she should continuethere were no new concerns at today's visit recommend 4-month follow-up. 16-minute follow-up visit, 5-minute chart review, 11 minutes [id number]. 2.Arthritis of both feet Electronic Signature on File Electronically Reviewed/Signed by: Isabella Maradiaga DPM Author Signature Dt/Tm:05/14/2023 10:25 AM Division of Sports Medicine CLR Patient Care team information Care Team Personnel Name: MD Paul Richard C Position: Physician - Pulmonary Med Member Role: Lifetime Relationship Address: Address: [address] [place] [address] [address] [place] [address] Name: MD Francisco, Ted Louie Position: Physician - Internal Med Member Role: Primary Care Provider Address: Address: [address] [place] [address] [address] [place] [address]
--- OUTSIDE RECORDS SUMMARY | 2023-06-25 12:24 | External Medical Summary | Continuity of Care Document ---
Author Name Unknown Organization [address] Address [address] [place] [id number] Care Team Providers Care Control Room Technician Name Role Phone Ted Singh Primary Care Physician [phone] [facility] [id number] Date(s): 12/28/22 - 12/28/[address] [place] [id number] [facility] [address] [place] [address] [phone] Encounter Diagnosis Hypertension(Discharge Diagnosis) - 12/28/22 Interstitial lung disease(Discharge Diagnosis) - 12/28/22 Abdominal discomfort(Discharge Diagnosis) - 12/28/22 GERD (gastroesophageal reflux disease)(Discharge Diagnosis) - 12/28/22 Essential (primary) hypertension(Final) - Discharge Disposition: Home or Self Care Attending Physician: MD Singh Michael P Referring Physician: MD Singh Michael P Allergies, Adverse Reactions, Alerts Substance Reaction Severity Status morphine hives Active penicillins hives Active sulfa drugs hives Active Latex rash Active Assessment and Plan Extracted from: Title:Office Visit Note Author:MD Francisco, [facility] ael P Date:12/28/22 1.Hypertension Relatively well controlled in office today. Previous elevation in readings most likely secondary to prednisone which she is currently taking for ILD. We discussed options. She would like to proceed with monitoring at home with home BP cuff. Advised to reach out if BP is not at goal of less than 130/80. Advised that we should start medication if greater than 150 systolicor greater than 90 diastolic. She had previously been on metoprololwhich we can then restart if it is elevated. She is in agreement with this plan. 2.Interstitial lung disease Ongoing, on supplemental oxygen. She is currently taking prednisone as prescribed throughpulmonology. She has a follow-up appointment coming up soon to discuss further treatmentswhich she plans to attend. We will follow-up pending this consultation. 3.Abdominal discomfort Unclear etiology, suspect may be related to ongoing constipation due to increased amount ofcalcium supplementation due to heartburn. Advised to increase water and fiber intake. In addition, she will take a stool softener to see if this helps improve her symptoms. Finally, we will check LFTs todayand obtain a CMP. We will follow-up pending those results. She is not interested in any further testing at this timeand was reluctant to proceed with blood testing today. 4.GERD (gastroesophageal reflux disease) Ongoing symptoms that have somewhat increased secondary to starting prednisone. She may be titrating off of this soon which should help improve her symptoms. She is continue with pantoprazole 40 mg daily. We discussed adding on an H2 claritza but she declined at this time. She plans to continue to useTumsas needed for anyincrease in symptoms. We will plan to follow-up if symptomsdo not improve. I have spent42 minutes in [id number] interaction regarding review of ongoing symptoms, discussion counseling regarding furtherdiagnostic testing, discussion counseling regarding further treatment recommendations, discussion counseling regarding further management conditions,and [id number] time for chart review and documentation. Immunizations Given and Recorded Vaccine Date Status Refusal Reason influenza virus vaccine, inactivated 08/03/22 Give n influenza virus vaccine, inactivated 10/19/21 Give n influenza virus vaccine, inactivated 07/16/18 Give n SARS-CoV-2 (COVID-19) mRNA BNT-162b2 vax 1 01/18/21 Recorded SARS-CoV-2 (COVID-19) mRNA BNT-162b2 vax 2 12/11/20 Recorded 1Result Comment: 2021-10-19: Historical information-source unspecified 2Result Comment: 2021-10-19: Historical information-source unspecified Medications amitriptyline 10 mg oral tablet Start: 12/22/22 9:10:00 EST, See Instructions, Disp# 90 tab, Refills: 1, TAKE 1 TABLET BY MOUTH AT BEDTIME, Pharmacy: [facility] Start Date: 12/22/22 Status: Ordered busPIRone 10 mg oral tablet Start: 09/04/22 6:58:00 EST, 1 tab, PO, bid, Disp# 60 tab, Refills: 0, Pharmacy: [facility] Start Date: 09/04/22 Stop Date: 10/04/22 Status: Ordered levothyroxine 137 mcg (0.137 mg) oral tablet Start: 11/06/22 7:07:00 EST, See Instructions, Disp# 30 tab, Refills: 5, TAKE 1 TABLET BY MOUTH EVERY DAY, Pharmacy: [facility] Start Date: 11/06/22 Status: Ordered pantoprazole 40 mg oral delayed release tablet Start: 10/02/22 7:41:00 EST, See Instructions, Disp# 90 tab, Refills: 0, TAKE 1 TABLET BY MOUTH EVERY MORNING, Pharmacy: [facility] Start Date: 10/02/22 Status: Ordered PREDNISONE 5 MG TABS Start: 12/28/22 10:00:00 EDT, PREDNISONE 5 MG TABS Start Date: 12/28/22 Status: Ordered Senokot Extra 8.6 mg oral tablet Start: 04/26/22 14:20:00 EDT, 1 tab, PO, bid, PRN: as needed for constipation Start Date: 04/26/22 Status: Ordered Topamax 100 mg oral tablet Start: 09/08/22 16:24:00 EST, 1 tab, PO, bid, Disp# 60 tab, Refills: 2, Pharmacy: [facility] Start Date: 09/08/22 Stop Date: 12/07/22 Status: Ordered traMADol 50 mg oral tablet Start: 04/26/22 14:13:00 EDT, 1 tab, PO, q6h, PRN: as needed for pain Start Date: 04/26/22 Status: Ordered unknown medication Start: 04/26/22 14:22:00 EDT, oxygen at 4 mL/min via NC, continuous Start Date: 04/26/22 Status: Ordered Voltaren 1% topical gel Start: 09/19/22 9:45:00 EST, 1 appl, topical, qid, Disp# 100 g, 4g to affected area 4 times a day, PRN: Pain, Pharmacy: [facility] Start Date: 09/19/22 Status: Ordered Mental Status 12/28/22 Barriers to Learning one year None evide nt Mandatory Health Literacy Documentation Yes Health Literacy Communication Barriers N ever Primary Language Swedish Problem List Condition Confirmation Course Effective Dates Status H ealth Status Informant Asthma Confirmed Active Bipolar disorder Confirmed Active Pes anserine bursitis Confirmed Active Cough Confirmed Active Thyroid disease Confirmed Active Fibromyalgia Confirmed Active History of gastric surgery Confirmed Active Hyperlipidemia Confirmed Active IT band syndrome Confirmed Active Interstitial lung disease Confirmed Active IBS (irritable bowel syndrome) Confirmed Active Osteoarthritis of both knees Confirmed Active Spinal stenosis Confirmed Active Diagnosis Diagnosis Type Effective Dates Health Status Clinical Service Informant Hypertension Discharge Diagnosis 12/28/22 Abdominal discomfort Discharge Diagnosis 12/28/22 GERD (gastroesophageal reflux disease) Discharge Diagnosis 12/28/22 Interstitial lung disease Discharge Diagnosis 12/28/22 Procedures Procedure Date Related Diagnosis Body Site Status Bronchoscopy 1 08/01/22 Completed DEXA (dual energy X-ray phot on absorptiometry) scan of lateral spine 2 10/15/16 Completed Colonoscopy 3 10/15/15 Completed Bronchoscopy Completed Cholecystectomy Completed Gastric 4 Completed Hernia repair Completed Hysterectomy Completed Knee arthroplasty 5 Compl et[address] Loop 6 Completed 1cultures done 2osteopenia 3wnl 4post gastric banding surgery 5right total knee revision with removal of femoral and tibial components and conversion to a right knee hinged prosthesis. 6loop recorder Results Laboratory List Name Date Comprehensive Metabolic Panel (COMP META B PANEL) 12/28/22 Most recent to oldest [Reference Range]: 1 eGFR CKD-EPI [>60 mL/min/1.73 m2] 51 mL/ min/1.73 m2 1 *LOW* (12/28/22 10:37 AM) Estimated CrCl 48.43 mL/min (12/28/22 1:50 PM) Anion Gap [5-14 mmol/L] 5 mmol/L (12/28/22 10:37 AM) Alb [3.5-5.0 g/dL] 4.2 g/dL (12/28/22 10:37 AM) Alk Phos [38-126 unit/L] 107 unit/L (12/28/22 10:37 AM) ALT [<35 unit/L] 17 unit/L (12/28/22 10:37 AM) AST [15-46 unit/L] 45 unit/L (12/28/22 10:37 AM) BUN [7-20 mg/dL] 17 mg/dL (12/28/22 10:37 AM) Ca [8.4-10.2 mg/dL] 9.5 mg/dL (12/28/22 10:37 AM) Cl- [96-107 mmol/L] 108 mmol/L *HI* (12/28/22 10:37 AM) HCO3 [22-30 mmol/L] 29 mmol/L (12/28/22 10:37 AM) Cret [0.60-1.00 mg/dL] 1.13 mg/dL *HI* (12/28/22 10:37 AM) Glu [74-106 mg/dL] 154 mg/dL *HI* (12/28/22 10:37 AM) K [3.5-5.1 mmol/L] 3.6 mmol/L (12/28/22 10:37 AM) Na [137-145 mmol/L] 142 mmol/L (12/28/22 10:37 AM) T Bili [0.2-1.3 mg/dL] 0.5 mg/dL (12/28/22 10:37 AM) Prot [6.3-8.2 g/dL] 7.5 g/dL (12/28/22 10:37 AM) 1Result Comment: Testing Performed By: Dept of Pathology [facility] [address], [address], [place] [address] Vital Signs Most recent to oldest [Reference Range]: 1 Temperature [36.5-37.9 DegC] 36.5 DegC (12/28/22 10:01 AM) Respiratory Rate 16 br/min (12/28/22 10:01 AM) Blood Pressure 128/76mmHg (12/28/22 10:01 AM) Cuff Pulse Pressure 52 mmHg (12/28/22 10:01 AM) Social History Social History Type Response Smoking Status Never smoked cigaret viviane Sex Female Patient Care team information Personnel Name: MD Francisco, Ted Louie Address: Address: [address] [place] [id number]
--- OUTSIDE RECORDS SUMMARY | 2023-06-25 12:24 | External Medical Summary | Continuity of Care Document ---
Author Name Unknown Organization [address] Address [address] [place] [id number] Care Team Providers Care Strategic Sourcing Consultant Name Role Phone Ted Singh Primary Care Physician [phone] Encounter [facility] [id number] Date(s): 01/08/23 - 01/08/23 [place] [id number] [facility] [address] [place] [id number] Encounter Diagnosis Pes planus of both feet(Discharge Diagnosis) - 01/08/23 Arthritis of both feet(Discharge Diagnosis) - 01/08/23 Discharge Disposition: Home or Self Care Attending Physician: BRISA Maradiaga Christina L Referring Physician: MD Singh Michael P Allergies, Adverse Reactions, Alerts Substance Reaction Severity Status morphine hives Active penicillins hives Active sulfa drugs hives Active Latex rash Active Assessment and Plan Extracted from: Title:Follow Up Visit Author:BRISA Maradiaga, Manny Liu Date:01/08/23 1.Pes planus of both feet I discussed with patient that in the next upcoming months I would like her to continue exercises that were taught to her by herphysical therapist for her right foot. She will continue them every day and she indicated to me that they are using a band. Additionally I have asked patient to wear her supportive sneakers more oftenshe did present today wearing shoes that had very little support and I think that is not helping her. She is understanding of this we again reviewed the notion that her right foot arthritic painis secondary to 2 previous knee surgeries and a stroke. Patient willcontinue to use her rolling walkershe also had her nurse with her today which I think is beneficialI have asked patient to follow-up with me in 4 months. 19-minute follow-up visit, 7-minute chart review,12 minutes [id number] 2.Arthritis of both feet Immunizations Given and [...] qhs, Disp# 90 tab, Refills: 1, Pharmacy: [id number] Start Date: 01/03/23 Stop Date: 07/02/23 Status: Ordered busPIRone 10 mg oral tablet Start: 09/04/22 6:58:00 EST, 1 tab, PO, bid, Disp# 60 tab, Refills: 0, Pharmacy: [facility] Start Date: 09/04/22 Stop Date: 10/04/22 Status: Ordered diclofenac 1% topical gel Start: 01/10/23 11:22:00 EDT, See Instructions, Disp# 100 g, Refills: 0, APPLY 4 GRAMS TOPICALLY TOTHE AFFECTED AREA 4 TIMES DAILY NEEDED FOR PAIN , Pharmacy: [facility] Start Date: 01/10/23 Status: Ordered levothyroxine 137 mcg (0.137 mg) oral tablet Start: 11/06/22 7:07:00 EST, See Instructions, Disp# 30 tab, Refills: 5, TAKE 1 TABLET BY MOUTH EVERY DAY, Pharmacy: [facility] Start Date: 11/06/22 Status: Ordered pantoprazole 40 mg oral delayed release tablet Start: 01/04/23 12:35:00 EDT, See Instructions, Disp# 90 tab, Refills: 0, TAKE 1 TABLET BY MOUTH EVERY MORNING, Pharmacy: [facility] Start Date: 01/04/23 Status: Ordered PREDNISONE 5 MG TABS Start: [...] bid, Disp# 60 tab, Refills: 2, Pharmacy: [facility] Start Date: 09/08/22 Stop Date: 12/07/22 Status: Ordered traMADol 50 mg oral tablet Start: 04/26/22 14:13:00 EDT, 1 tab, PO, q6h, PRN: as needed for pain Start Date: 04/26/22 Status: Ordered unknown medication Start: 04/26/22 14:22:00 EDT, oxygen at 4 mL/min via NC, continuous Start Date: 04/26/22 Status: Ordered Mental Status 01/08/23 Barriers to Learning one year None evide nt Mandatory Health Literacy Documentation Yes Health Literacy Communication Barriers N ever Primary Language Tuvaluan Problem List Condition Confirmation Course Effective Dates [...] Pes planus of both feet Discharge Diagnosis 01/08/23 Arthritis of both feet Discharge Diagnosis 01/08/23 Procedures Procedure Date Related Diagnosis Body Site [...] Name: MD Francisco, Ted Louie Address: Address: [address] [place] [address]
--- OUTSIDE RECORDS SUMMARY | 2023-06-25 12:24 | External Medical Summary | Continuity of Care Document ---
Author Name Unknown Organization [address] [place] [phone] Care Team Providers Care Laydown Machine Operator Name Role Phone Ted Singh Primary Care Physician [phone] [id number] Date(s): 05/14/23 - 05/14/23 [facility] 207 [facility] Practice Site 1850 [facility], [facility] 207 [place], [place] [address]Pkxxa [phone] Encounter Diagnosis Localized edema(Final) - Discharge Disposition: Home or Self Care Attending Physician: MD Singh Michael P Allergies, Adverse Reactions, Alerts Substance Reaction Severity Status morphine hives Active penicillins hives Active sulfa drugs hives Active Latex rash Active Immunizations Given and Recorded Vaccine Date Status [...] qhs, Disp# 90 tab, Refills: 1, Pharmacy: [facility]137 Start Date: 01/03/23 Stop Date: 07/02/23 Status: Ordered busPIRone 10 mg oral tablet Start: 09/04/22 6:58:00 EST, 1 tab, PO, bid, Disp# 60 tab, Refills: 0, Pharmacy: [facility] Start Date: 09/04/22 Stop Date: 10/04/22 Status: Ordered diclofenac 1% topical gel Start: 02/05/23 9:12:00 EDT, See Instructions, Disp# 100 g, Refills: 0, APPLY 4 GRAMS TOPICALLY TO THE AFFECTED AREA 4 TIMES DAILY NEEDED FOR PAIN , Pharmacy: [facility] Start Date: 02/05/23 Status: Ordered gabapentin 100 mg oral capsule Start: 04/18/23 12:46:00 EDT, See Instructions, Disp# 60 cap, Refills: 0, TAKE 1 CAPSULE BY MOUTH TWICE DAILY, Pharmacy: [facility] Start Date: 04/18/23 Status: Ordered [...] 1 TABLET BY MOUTH EVERY DAY, Pharmacy: [facility] Start Date: 11/06/22 Status: Ordered mycophenolate mofetil 500 mg oral tablet Start: 03/01/23 14:08:00 EDT, 1 tab, PO, bid Start Date: 03/01/23 Status: Ordered pantoprazole 40 mg oral delayed release tablet Start: 03/16/23 14:07:00 EDT, 1 tab, PO, bid, Disp# 180 tab, Refills: 0, Pharmacy: [facility] Start Date: 03/16/23 Stop Date: [...] bid, Disp# 60 tab, Refills: 2, Pharmacy: [facility] Start Date: 09/08/22 Stop [...] Daily, Disp# 30 tab, Refills: 5, Pharmacy: [facility] Start Date: 04/11/23 Status: Ordered Problem List Condition Confirmation Course Effective Dates [...] Pes planus of both feet Confirmed Active Procedures Procedure Date Related Diagnosis Body Site [...] 6loop recorder Results Laboratory List Name Date Basic Metabolic Panel (BASIC METAB PANEL ) 05/14/23 Most recent to oldest [Reference Range]: 1 eGFR CKD-EPI [>60 mL/min/1.73 m2] 43 mL/ min/1.73 m2 1 *LOW* (05/14/23 10:37 AM) Estimated CrCl 41.34 mL/min (05/14/23 12:21 PM) Anion Gap [5-14 mmol/L] 8 mmol/L (05/14/23 10:37 AM) BUN [7-20 mg/dL] 22 mg/dL *HI* (05/14/23 10:37 AM) Ca [8.4-10.2 mg/dL] 9.2 mg/dL (05/14/23 10:37 AM) Cl- [96-107 mmol/L] 106 mmol/L (05/14/23 10:37 AM) HCO3 [22-30 mmol/L] 27 mmol/L (05/14/23 10:37 AM) Cret [0.60-1.00 mg/dL] 1.31 mg/dL *HI* (05/14/23 10:37 AM) Glu [74-106 mg/dL] 95 mg/dL (05/14/23 10:37 AM) K [3.5-5.1 mmol/L] 4.0 mmol/L (05/14/23 10:37 AM) Na [137-145 mmol/L] 141 mmol/L (05/14/23 10:37 AM) 1Result Comment: Testing Performed By: Dept of Pathology [facility], [address] [facility] [address], [place] [address] Social History Social History Type Response Smoking Status Never smoked cigaret viviane Sex Female Patient Care team information Care Team Personnel Name: MD Paul Richard C Position: Physician - Pulmonary Med Member Role: Lifetime Relationship Address: Address: [address] [place] [address] [address] [place] [address] Name: MD Singh Michael P Position: Physician - Internal Med Member Role: Primary Care Provider Address: Address: [address] [place] [address] [address] [place] [address] [place]
--- OUTSIDE RECORDS SUMMARY | 2023-06-25 12:24 | External Medical Summary | Continuity of Care Document ---
Author Name Unknown Organization [place] [address] [place] [phone] Care Team Providers Care Strength And Conditioning Coach Name Role Phone Ted Singh Primary Care Physician [phone] Encounter [facility] [id number] Date(s): 03/23/22 - 03/23/22 [facility] [address] Practice Site 1850 [facility], [facility] 207 [place], [place] [address]Timly [phone] Encounter Diagnosis Interstitial pulmonary disease, unspecified(Final) - Hypothyroidism, unspecified(Final) - Discharge Disposition: Home or Self Care Attending Physician: MD Singh Michael P Referring Physician: MD Singh Michael P Allergies, Adverse Reactions, Alerts Substance Reaction Severity Status morphine hives Active penicillins hives Active sulfa drugs hives Active Immunizations Given and Recorded Vaccine Date Status Refusal Reason influenza virus vaccine, inactivated 10/19/21 Give n influenza virus vaccine, inactivated 07/16/18 Give n SARS-CoV-2 (COVID-19) mRNA BNT-162b2 vax 1 01/18/21 Recorded SARS-CoV-2 (COVID-19) mRNA BNT-162b2 vax 2 12/11/20 Recorded 1Result Comment: 2021-10-19: Historical information-source unspecified 2Result Comment: 2021-10-19: Historical information-source unspecified Medications ALPRAZolam 0.5 mg oral tablet TAKE 1 TABLET BY MOUTH AT BEDTIME NEEDED Start Date: 07/16/18 Status: Ordered amitriptyline 10 mg oral tablet Start: 01/24/22 16:22:00 EDT, See Instructions, Disp# 90 tab, Refills: 0, TAKE 1 TABLET BY MOUTH EVERYDAY AT BEDTIME, Pharmacy: [facility] Start Date: 01/24/22 Status: Ordered atorvastatin 40 mg oral tablet Start: 10/19/21 11:05:00 EST, 1 tab, PO, Daily Start Date: 10/19/21 Status: Ordered busPIRone 5 mg oral tablet Start: 12/04/19 10:53:00 EST, 1 tab, PO, tid Start Date: 12/04/19 Status: Ordered Eliquis 5 mg oral tablet Start: 10/19/21 11:05:00 EST Start Date: 10/19/21 Status: Ordered levothyroxine 137 mcg (0.137 mg) oral tablet Start: 02/20/19 14:36:29 EDT, See Instructions, Disp# 30, TAKE 1 TABLET BY MOUTH EVERY DAY, Pharmacy: [facility]/pharmacy #[id number] Start Date: 02/20/19 Status: Ordered Metoprolol Tartrate 25 mg oral tablet Start: 10/19/21 11:05:00 EST Start Date: 10/19/21 Status: Ordered pantoprazole 40 mg oral delayed release tablet Start: 07/01/19 11:55:05 EDT, See Instructions, Disp# 90, Refills: 1, TAKE 1 TABLET BY MOUTH EVERY DAY, Pharmacy: [facility]/pharmacy #[id number] Start Date: 07/01/19 Status: Ordered Spiriva Respimat 28 ACT 2.5 mcg/inh inhalation aerosol Start: 01/02/22 11:44:00 EDT, 2 inh, inhaled, Daily, Disp# 1 kit, Refills: 1, Pharmacy: [facility] Start Date: 01/02/22 Status: Ordered Tessalon 200 mg oral capsule Start: 01/02/22 11:45:00 EDT, 1 cap, PO, tid, Disp# 30 cap, Refills: 0, Pharmacy: [facility] Start Date: 01/02/22 Stop Date: 01/12/22 Status: Ordered topiramate 25 mg oral capsule Start: 07/16/18 10:14:00 EDT, 2 cap, PO, bid, taking 50 mg bid Start Date: 07/16/18 Status: Ordered Ventolin HFA 90 mcg/inh inhalation aerosol Start: 11/10/21 14:24:00 EST, 1 puff, inhaled, qid, Disp# 18 g, PRN: as needed for wheezing, Pharmacy: [facility] Start Date: 11/10/21 Stop Date: 12/10/21 Status: Ordered Problem List Condition Effective Dates Status Health Status Inform ant Asthma(Confirmed) Active Bipolar disorder(Confirmed) Active Pes anserine bursitis(Confirmed) Active Cough(Confirmed) Active Thyroid disease(Confirmed) Active Fibromyalgia(Confirmed) Active History of gastric surgery(Confirmed) Active IT band syndrome(Confirmed) Active Interstitial lung disease(Confirmed) Active Osteoarthritis of both knees(Confirmed) Active Spinal stenosis(Confirmed) Active Procedures Procedure Date Related Diagnosis Body Site Status DEXA (dual energy X-ray phot on absorptiometry) scan of lateral spine 1 10/15/16 Completed Colonoscopy 2 10/15/15 Completed 1osteopenia 2wnl Results Laboratory List Name Date Thyroid Stimulating Hormone (TSH) 03/23/22 Most recent to oldest [Reference Range]: 1 TSH [0.47-4.68 uIU/mL] 0.95 uIU/mL 1 (03/23/22 12:37 PM) 1Result Comment: Testing Performed By: Dept of Pathology [facility], [address], [place] [address] Social History Social History Type Response Smoking Status Never smoked cigaret viviane Sex Female Care Team Personnel Name: MD Francisco, Ted Louie Address: [address] [place] [address], [place] [address]
--- OUTSIDE RECORDS SUMMARY | 2023-06-25 12:24 | External Medical Summary | Continuity of Care Document ---
Author Name Unknown Organization [address] [place] [phone] Care Team Providers Care Horse Racing Analyst Name Role Phone Francisco Ted Liban Primary Care Physician [phone] Encounter [facility] [id number] Date(s): 03/23/22 - 03/23/22 [facility] 0 [facility] 207 [facility] Practice [facility] [address] [facility], [facility] 207 [place], [place] [address]Xmlak [phone] Encounter Diagnosis Interstitial pulmonary disease, unspecified(Final) - Discharge Disposition: Home or Self Care Attending Physician: MD Paul Richard C Referring Physician: MD Paul Richard C Allergies, Adverse Reactions, Alerts Substance Reaction Severity [...] TABLET BY MOUTH EVERYDAY AT BEDTIME, Pharmacy: [facility] Start Date: 01/24/22 Status: Ordered [...] 1 TABLET BY MOUTH EVERY DAY, Pharmacy: [facility]/pharmacy #[id number] Start Date: 02/20/19 Status: Ordered Metoprolol Tartrate 25 mg oral tablet Start: 10/19/21 11:05:00 EST Start Date: 10/19/21 Status: Ordered pantoprazole 40 mg oral delayed release tablet Start: 07/01/19 11:55:05 EDT, See Instructions, Disp# 90, Refills: 1, TAKE 1 TABLET BY MOUTH EVERY DAY, [id number] Start Date: 07/01/19 Status: Ordered Spiriva Respimat 28 ACT 2.5 mcg/inh inhalation aerosol Start: 01/02/22 11:44:00 EDT, 2 inh, inhaled, Daily, Disp# 1 kit, Refills: 1, Pharmacy: [facility] Start Date: 01/02/22 Status: Ordered Tessalon 200 mg oral capsule Start: 01/02/22 11:45:00 EDT, 1 cap, PO, tid, Disp# 30 cap, Refills: 0, Pharmacy: [facility] Start Date: 01/02/22 Stop Date: 01/12/22 Status: Ordered topiramate 25 mg oral capsule Start: 07/16/18 10:14:00 EDT, 2 cap, PO, bid, taking 50 mg bid Start Date: 07/16/18 Status: Ordered Ventolin HFA 90 mcg/inh inhalation aerosol Start: 11/10/21 14:24:00 EST, 1 puff, inhaled, qid, Disp# 18 g, PRN: as needed for wheezing, Pharmacy: [facility] Start Date: 11/10/21 Stop Date: [...] 1osteopenia 2wnl Results Laboratory List Name Date CCP Antibody (ANTI-CCP) 03/23/22 Erythrocyte Sedimentation Rate (SEDIMENT ATION RATE) 03/23/22 Immunoglobulin Profile (IMMUNOGLOBULINS) 03/23/22 Rheumatoid Factor (RHEUMATOID FACTOR) 03/23/22 Most recent to oldest [Reference Range]: 1 RF. [<14 I.U./mL] <10 I.U./mL (03/23/22 12:42 PM) CCP Ab [<17.0 unit/mL] <12.0 unit/mL (03/23/22 12:42 PM) ESR [0-50 mm/hr] 67 mm/hr 1 *HI* (03/23/22 12:42 PM) IgA [70-400 mg/dL] 254 mg/dL (03/23/22 12:42 PM) IgG [700-1600 mg/dL] 1610 mg/dL *HI* (03/23/22 12:42 PM) IgM [40-230 mg/dL] 292 mg/dL *HI* (03/23/22 12:42 PM) 1Result Comment: Testing Performed By: Dept of Pathology [facility], [address], [place] [address] Social History Social History Type Response Smoking Status Never smoked cigaret viviane Sex Female Care Team Personnel Name: MD Singh Michael P Address: [address] [place] [address], [place] [address]
--- OUTSIDE RECORDS SUMMARY | 2023-06-25 12:24 | External Medical Summary | Continuity of Care Document ---
Author Name Unknown Organization [place] [address] Address [address] [place] [place] [phone] Care Team Providers Care Flight Security Specialist Name Role Phone Ted Singh Primary Care Physician [phone] Encounter [facility] [id number] Date(s): 09/19/22 - 09/19/[address] [place] [address] [facility] [address] [place] [address] Encounter Diagnosis Arthritis of both feet(Discharge Diagnosis) - 09/19/22 Pes planus of both feet(Discharge Diagnosis) - 09/19/22 Discharge Disposition: Home or Self Care Attending Physician: BRISA Maradiaga Christina L Referring Physician: MD Singh Michael P Allergies, Adverse Reactions, Alerts Substance Reaction Severity Status morphine hives Active penicillins hives Active sulfa drugs hives Active Latex rash Active Assessment and Plan Extracted from: Title:Orthopaedics Office Visit Note Author:Nayla Manning DPM, Christina L Date:09/19/22 1.Arthritis of both feet Discussed x-ray findings with patientand that I do believe her arthritic pain and discomfort of her right foot is secondary to gait changes and abnormalities secondary to 2 previous knee surgeriesand a stroke. I recommend for patient to use topical Voltaren gel to the right foot as neededadditionally I recommend for patient to have in-home physical therapyto help with her gait and mobilityand specifically target arthritis of the right foot. I provided patient with a prescription. I recommended 2-month follow-up. 25-minute initial visit,6-minute chart review, 6-minute x-ray review,13 minutes [id number] 2.Pes planus of both feet Addendum by BRISA Maradiaga Christina L on September 19, 2022 13:16:25 EST Patient noted she is no longer on Eliquis Immunizations Given and Recorded Vaccine Date Status [...] Ordered amitriptyline 10 mg oral tablet Start: 09/19/22 11:06:00 EST, See Instructions, Disp# 90 tab, Refills: 0, TAKE 1 TABLET BY MOUTH EVERYDAY AT BEDTIME, Pharmacy: [facility] Start Date: 09/19/22 Status: Ordered busPIRone 10 mg oral tablet Start: 09/04/22 6:58:00 EST, 1 tab, PO, bid, Disp# 60 tab, Refills: 0, Pharmacy: [facility] Start Date: 09/04/22 Stop Date: 10/04/22 Status: Ordered busPIRone 5 mg oral tablet Start: 12/04/19 10:53:00 EST, 1 tab, PO, tid Start Date: 12/04/19 Status: Ordered calcium carbonate 500 mg chewable tablet Start: 04/26/22 14:20:00 EDT, 500 mg =, PO, q8h Start Date: 04/26/22 Status: Ordered Eliquis 5 mg oral tablet Start: 10/19/21 11:05:00 EST Start Date: 10/19/21 Status: Ordered guaiFENesin 100 mg/5 mL oral liquid Start: 04/26/22 14:19:00 EDT, 5 mL, PO, q4h, PRN: as needed for congestion Start Date: 04/26/22 Status: Ordered levothyroxine 137 mcg (0.137 mg) oral tablet Start: 02/20/19 14:36:29 EDT, See Instructions, Disp# 30, TAKE 1 TABLET BY MOUTH EVERY DAY, Pharmacy: [facility]/pharmacy #[id number] Start Date: 02/20/19 Status: Ordered Metoprolol Tartrate 25 mg oral tablet Start: 10/19/21 11:05:00 EST Start Date: 10/19/21 Status: Ordered MiraLax oral powder for reconstitution Start: 04/26/22 14:17:00 EDT, 17 g =, PO, Daily Start Date: 04/26/22 Status: Ordered pantoprazole 40 mg oral delayed release tablet Start: 07/01/19 11:55:05 EDT, See Instructions, Disp# 90, Refills: 1, TAKE 1 TABLET BY MOUTH EVERY DAY, Pharmacy: [facility]/pharmacy #[id number] Start Date: 07/01/19 Status: Ordered Senokot Extra 8.6 mg oral tablet Start: 04/26/22 14:20:00 EDT, 1 tab, PO, bid, PRN: as needed for constipation Start Date: 04/26/22 Status: Ordered Spiriva Respimat 28 ACT 2.5 mcg/inh inhalation aerosol Start: 01/02/22 11:44:00 EDT, 2 inh, inhaled, Daily, Disp# 1 kit, Refills: 1, Pharmacy: [facility] Start Date: 01/02/22 Status: Ordered Tessalon 200 mg oral capsule Start: 01/02/22 11:45:00 EDT, 1 cap, PO, tid, Disp# 30 cap, Refills: 0, Pharmacy: [facility] Start Date: 01/02/22 Stop Date: 01/12/22 Status: Ordered Topamax 100 mg oral tablet Start: 09/08/22 16:24:00 EST, 1 tab, PO, bid, Disp# 60 tab, Refills: 2, Pharmacy: [facility] Start Date: 09/08/22 Stop Date: 12/07/22 Status: Ordered topiramate 25 mg oral capsule Start: 07/16/18 10:14:00 EDT, See Instructions, taking 2 tabs once daily 100 mg Start Date: 07/16/18 Status: Ordered traMADol 50 mg oral tablet Start: 04/26/22 14:13:00 EDT, 1 tab, PO, q6h, PRN: as needed for pain Start Date: 04/26/22 Status: Ordered unknown medication Start: 04/26/22 14:22:00 EDT, oxygen at 4 mL/min via NC, continuous Start Date: 04/26/22 Status: Ordered Ventolin HFA 90 mcg/inh inhalation aerosol Start: 11/10/21 14:24:00 EST, 1 puff, inhaled, qid, Disp# 18 g, PRN: as needed for wheezing, Pharmacy: [facility] #137 Start Date: 11/10/21 Stop Date: 12/10/21 Status: Ordered Voltaren 1% topical gel Start: 09/19/22 9:45:00 EST, 1 appl, topical, qid, Disp# 100 g, 4g to affected area 4 times a day, PRN: Pain, Pharmacy: [facility] #137 Start Date: 09/19/22 Status: Ordered Mental Status 09/19/22 Barriers to Learning one year None evide nt Mandatory Health Literacy Documentation Yes Health Literacy Communication Barriers N ever Primary Language Nauruan Problem List Condition Confirmation Course Effective Dates [...] Dates Health Status Cl inical Service Informant Arthritis of both feet Discharge Diagnosis 09/19/22 Pes planus of both feet Discharge Diagnosis 09/19/22 Procedures Procedure Date Related Diagnosis Body Site [...] Name: MD Francisco, Ted Louie Address: Address: [address] [place] [address]
--- OUTSIDE RECORDS SUMMARY | 2023-06-25 12:24 | External Medical Summary | Continuity of Care Document ---
Author Name Unknown Organization [address] Address [address] [place], [place] [id number] Care Team Providers Care Business Transformation Analyst Name Role Phone Ted Singh Primary Care Physician [phone] Encounter [facility] [id number] Date(s): 07/04/22 - 07/04/[address] [place] [id number] [facility], [address] [place] [address] [phone] Encounter Diagnosis Acute COVID-19(Discharge Diagnosis) - 07/04/22 Fibrosis, idiopathic pulmonary(Discharge Diagnosis) - 07/04/22 Dyspnea(Discharge Diagnosis) - 07/04/22 Bipolar disorder(Discharge Diagnosis) - 07/05/22 Discharge Disposition: Home or Self Care Attending Physician: SHOSHANA Fierro Shari A Referring Physician: MD Singh Michael P Allergies, Adverse Reactions, Alerts Substance Reaction Severity Status morphine hives Active penicillins hives Active sulfa drugs hives Active Latex rash Active Assessment and Plan Extracted from: Title:Office Visit Note Author:SHOSHANA Fierro, kellie A Date:07/04/22 Acute COVID-19 Acute w/ systemic symptoms or complicated injury Goal:Resolution Data:external notes including: _ED note, H&P Plan: _Continues to recover from COVID. Continue 02 and Pulmonology follow up. Await DC Summary. Unsure as to whether follow up with Cardiology in place and if they will do echocardiogram if not done during hospital stay. Will contact Cardiology office to see if appointment made. Bipolar disorder Chronic condition, stable Goal:control Data:pt report Plan: _Refill of Buspar and Topamax. Continue with Psychiatry for care, see above. Will have office contact them to obtain appointment for patient. Dyspnea Chronic condition, stable Goal:Resolution Data:external notes including: _ED note, H&P, Pulmonology note Plan: _Continue current medications, 02 and follow with Pulmonology as planned. Home Health services ordered. Fibrosis, idiopathic pulmonary Chronic condition, stable Goal:control Data:external notes including: _Pulmonology note Plan: _Continue as per Pulmonology. Home Health services ordered. Time:Total time spent with this patient on day of evaluation including chart review, ordering, education and coordination of care elements: _ minutes, 48 Immunizations Given and Recorded Vaccine Date Status [...] TABLET BY MOUTH EVERYDAY AT BEDTIME, Pharmacy: [facility] Start Date: 01/24/22 Status: Ordered atorvastatin 40 mg oral tablet Start: 10/19/21 11:05:00 EST, 1 tab, PO, Daily Start Date: 10/19/21 Status: Ordered busPIRone 10 mg oral tablet Start: 07/05/22 16:04:00 EDT, 1 tab, PO, bid, Disp# 60 tab, Refills: 0, Pharmacy: [facility] Start Date: 07/05/22 Stop Date: 08/04/22 Status: Ordered busPIRone 5 mg oral tablet [...] 1 TABLET BY MOUTH EVERY DAY, Pharmacy: [facility]/pharmacy #[id number] Start Date: 02/20/19 Status: Ordered Metoprolol [...] 1 TABLET BY MOUTH EVERY DAY, Pharmacy: [facility]/pharmacy #[id number] Start Date: 07/01/19 Status: Ordered Senokot Extra 8.6 mg oral tablet Start: 04/26/22 14:20:00 EDT, 1 tab, PO, bid, PRN: as needed for constipation Start Date: 04/26/22 Status: Ordered Spiriva Respimat 28 ACT 2.5 mcg/inh inhalation aerosol Start: 01/02/22 11:44:00 EDT, 2 inh, inhaled, Daily, Disp# 1 kit, Refills: 1, Pharmacy: [facility] Start Date: 01/02/22 Status: Ordered Tessalon 200 mg oral capsule Start: 01/02/22 11:45:00 EDT, 1 cap, PO, tid, Disp# 30 cap, Refills: 0, Pharmacy: [facility] Start Date: 01/02/22 Stop Date: 01/12/22 Status: Ordered Topamax 100 mg oral tablet Start: 07/05/22 16:04:00 EDT, 2 tab, PO, Daily, Disp# 60 tab, Refills: 0, Pharmacy: [facility] Start Date: 07/05/22 Stop Date: 08/04/22 Status: Ordered topiramate 25 mg oral capsule [...] g, PRN: as needed for wheezing, Pharmacy: [facility] #[facility] Start Date: 11/10/21 Stop Date: 12/10/21 Status: Ordered Problem List Condition Confirmation Course Effective Dates Status H ealth Status Informant Asthma Confirmed Active Bipolar disorder Confirmed Active Pes anserine bursitis Confirmed Active Cough Confirmed Active Thyroid disease Confirmed Active Fibromyalgia Confirmed Active History of gastric surgery Confirmed Active IT band syndrome Confirmed Active Interstitial lung disease Confirmed Active Osteoarthritis of both knees Confirmed Active Spinal stenosis Confirmed Active Diagnosis Diagnosis Type Effective Dates Health Status Clinical Service Informant Fibrosis, idiopathic pulmonary Discharge Diagnosis 07/04/22 Non-Specified Dyspnea Discharge Diagnosis 07/04/22 Non-Specified Acute COVID-19 Discharge Diagnosis 07/04/22 Non-Specified Bipolar disorder Discharge Diagnosis 07/05/22 Non-Specified Procedures Procedure Date Related Diagnosis Body Site Status DEXA (dual energy X-ray phot on absorptiometry) scan of lateral spine 1 10/15/16 Completed Colonoscopy 2 10/15/15 Completed Knee arthroplasty 3 Compl eted 1osteopenia 2wnl 3right total knee revision with removal of femoral and tibial components and conversion to a right knee hinged prosthesis. Vital Signs Most recent to oldest [Reference Range]: 1 Patient Weight 87.3 kg (07/04/22 10:01 AM) Heart Rate 76 bpm (07/04/22 10:01 AM) Blood Pressure 104/70mmHg (07/04/22 10:01 AM) Social History Social History Type Response Smoking Status Never smoked cigaret viviane Sex Female Patient Care team information Personnel Name: MD Francisco, Ted Louie Address: Address: [address] [place] [id number]
--- OUTSIDE RECORDS SUMMARY | 2023-06-25 12:24 | External Medical Summary | Continuity of Care Document ---
Author Name Unknown Organization [facility] [address] Address [address] [place], [place] [id number] Care Team Providers Care Sternman Name Role Phone Ted Singh Primary Care Physician [phone] Encounter [facility] [id number] Date(s): 05/25/23 - 05/25/23 [facility] [address] [facility] [address], [facility] [address] [place], [place] [phone] Encounter Diagnosis Other specified abnormal findings of blood chemistry(Final) - Discharge Disposition: Home or Self Care [...] qhs, Disp# 90 tab, Refills: 1, Pharmacy: [id number] Start Date: 01/03/23 Stop Date: 07/02/23 Status: Ordered busPIRone 10 mg oral tablet Start: 09/04/22 6:58:00 EST, 1 tab, PO, bid, Disp# 60 tab, Refills: 0, Pharmacy: [facility] Start Date: 09/04/22 Stop Date: 10/04/22 Status: Ordered diclofenac 1% topical gel Start: 02/05/23 9:12:00 EDT, See Instructions, Disp# 100 g, Refills: 0, APPLY 4 GRAMS TOPICALLY TO THE AFFECTED AREA 4 TIMES DAILY NEEDED FOR PAIN , Pharmacy: [facility] Start Date: 02/05/23 Status: Ordered furosemide 20 mg oral tablet Start: 05/25/23 14:36:00 EDT, 1 tab, PO, Daily, Disp# 5 tab, Pharmacy: [facility] Start Date: 05/25/23 Stop Date: 05/30/23 Status: Ordered gabapentin 100 mg oral capsule Start: 04/18/23 12:46:00 EDT, See Instructions, Disp# 60 cap, Refills: 0, TAKE 1 CAPSULE BY MOUTH TWICE DAILY, Pharmacy: [id number] Start Date: 04/18/23 Status: [...] 1 TABLET BY MOUTH EVERY DAY, Pharmacy: [facility] Start Date: 11/06/22 Status: Ordered mycophenolate mofetil 500 mg oral tablet Start: 03/01/23 14:08:00 EDT, 1 tab, PO, bid Start Date: 03/01/23 Status: Ordered pantoprazole 40 mg oral delayed release tablet Start: 03/16/23 14:07:00 EDT, 1 tab, PO, bid, Disp# 180 tab, Refills: 0, Pharmacy: [facility] Start Date: 03/16/23 Stop [...] bid, Disp# 60 tab, Refills: 2, Pharmacy: [facility] Start Date: 09/08/22 Stop [...] Daily, Disp# 30 tab, Refills: 5, Pharmacy: [facility] Start Date: 04/11/23 Status: [...] Basic Metabolic Panel (BASIC METAB PANEL ) 05/25/23 Most recent to oldest [Reference Range]: 1 eGFR CKD-EPI [>60 mL/min/1.73 m2] 46 mL/ min/1.73 m2 1 *LOW* (05/25/23 10:39 AM) Estimated CrCl 43.68 mL/min (05/25/23 11:17 AM) Anion Gap [5-14 mmol/L] 8 mmol/L (05/25/23 10:39 AM) BUN [7-20 mg/dL] 14 mg/dL (05/25/23 10:39 AM) Ca [8.4-10.2 mg/dL] 8.8 mg/dL (05/25/23 10:39 AM) Cl- [96-107 mmol/L] 107 mmol/L (05/25/23 10:39 AM) HCO3 [22-30 mmol/L] 27 mmol/L (05/25/23 10:39 AM) Cret [0.60-1.00 mg/dL] 1.24 mg/dL *HI* (05/25/23 10:39 AM) Glu [74-106 mg/dL] 134 mg/dL *HI* (05/25/23 10:39 AM) K [3.5-5.1 mmol/L] 3.6 mmol/L (05/25/23 10:39 AM) Na [137-145 mmol/L] 142 mmol/L (05/25/23 10:39 AM) 1Result Comment: Testing Performed By: Dept of Pathology [facility] [address], [address], [place] [address] Social History Social History Type Response Smoking Status Never smoked cigaret viviane Sex Female Patient Care team information Care Team Personnel Name: MD Paul Richard C Position: Physician - Pulmonary Med Member Role: Lifetime Relationship Address: Address: [address] [place] [address] [address] [place] [address] Name: MD Francisco, Ted Louie Position: Physician - Internal Med Member Role: Primary Care Provider Address: Address: [address] [place] [address]
--- OUTSIDE RECORDS SUMMARY | 2023-06-25 12:24 | External Medical Summary | Continuity of Care Document ---
Author Name Unknown Organization [address] Address [address] [place] [id number] Care Team Providers Care Emergency Management Consultant Name Role Phone Ted Singh Primary Care Physician [phone] Encounter [facility] [id number] Date(s): 03/02/22 - 03/02/[address] [facility] [address] [facility], [address] [place] [phone] Encounter Diagnosis Body mass index [BMI] 33.0-33.9, adult(Discharge Diagnosis) - 03/02/22 Interstitial lung disease(Discharge Diagnosis) - 03/02/22 Hypothyroidism(Discharge Diagnosis) - 03/02/22 Discharge Disposition: Home or Self Care Attending Physician: MD Singh Michael P Referring Physician: MD Singh Michael P Allergies, Adverse Reactions, Alerts Substance Reaction Severity Status morphine hives Active penicillins hives Active sulfa drugs hives Active Assessment and Plan Extracted from: Title:Office Visit Note Author:MD Francisco, Drew ael P Date:03/02/22 1.Interstitial lung diseas e Ongoing and what appears to be progressive. Etiology remains unknown and is working with [facility] to determine likely etiology and associated treatment plan. She continues to use supplemental oxygen as directed. We reviewed the previous few months in detail and discussed results obtained during the workup. Symptoms currently appears to be relatively stable. Will continue to follow along and follow up on further recs per pulm. 2.Hypothyroidism Suspect stable, though has been quite some time since last check. Will obtain TSH with additional labs that are pending. Continue with levothyroxine 137mcg daily for now. Will follow up pending results. I have spent 40 minutes in face to face interaction regarding review of ongoing symptoms, discussion and counseling regarding ongoing workup and diagnostics, discussion and counseling regarding further treatment, discussion and counseling regarding further management recommendations and non face to face time for chart review and documentation. Immunizations [...] TABLET BY MOUTH EVERYDAY AT BEDTIME, Pharmacy: [id number] Start Date: 01/24/22 Status: [...] 1 TABLET BY MOUTH EVERY DAY, Pharmacy: [facility]acy #[id number] Start Date: 02/20/19 Status: Ordered Metoprolol Tartrate 25 mg oral tablet Start: 10/19/21 11:05:00 EST Start Date: 10/19/21 Status: Ordered pantoprazole 40 mg oral delayed release tablet Start: 07/01/19 11:55:05 EDT, See Instructions, Disp# 90, Refills: 1, TAKE 1 TABLET BY MOUTH EVERY DAY, Pharmacy: [facility]/pharmacy #[id number] Start Date: 07/01/19 Status: Ordered Spiriva Respimat 28 ACT 2.5 mcg/inh inhalation aerosol Start: 01/02/22 11:44:00 EDT, 2 inh, inhaled, Daily, Disp# 1 kit, Refills: 1, Pharmacy: [facility] Start Date: 01/02/22 Status: Ordered Tessalon 200 mg oral capsule Start: 01/02/22 11:45:00 EDT, 1 cap, PO, tid, Disp# 30 cap, Refills: 0, Pharmacy: [facility] Start Date: 01/02/22 Stop Date: 01/12/22 Status: Ordered topiramate 25 mg oral capsule Start: 07/16/18 10:14:00 EDT, 2 cap, PO, bid, taking 50 mg bid Start Date: 07/16/18 Status: Ordered Ventolin HFA 90 mcg/inh inhalation aerosol Start: 11/10/21 14:24:00 EST, 1 puff, inhaled, qid, Disp# 18 g, PRN: as needed for wheezing, Pharmacy: [facility] Start Date: 11/10/21 Stop Date: 12/10/21 Status: Ordered Mental Status 03/02/22 Barriers to Learning one year None evide nt Mandatory Health Literacy Documentation Yes Health Literacy Communication Barriers N ever Primary Language Chilean Problem List Condition Effective Dates Status Health Status Inform ant Asthma(Confirmed) Active Bipolar disorder(Confirmed) Active Pes anserine bursitis(Confirmed) Active Cough(Confirmed) Active Thyroid disease(Confirmed) Active Fibromyalgia(Confirmed) Active History of gastric surgery(Confirmed) Active IT band syndrome(Confirmed) Active Interstitial lung disease(Confirmed) Active Osteoarthritis of both knees(Confirmed) Active Spinal stenosis(Confirmed) Active Diagnosis Diagnosis Type Effective Dates Health Status Clinical Service Informant Body mass index [BMI] 33.0-33.9, adult Discharge Diagnosis 03/02/22 Non-Specified Hypothyroidism Discharge Diagnosis 03/02/22 Interstitial lung disease Discharge Diagnosis 03/02/22 Procedures Procedure Date Related Diagnosis Body Site Status DEXA (dual energy X-ray phot on absorptiometry) scan of lateral spine 1 10/15/16 Completed Colonoscopy 2 10/15/15 Completed 1osteopenia 2wnl Vital Signs Most recent to oldest [Reference Range]: 1 Height 160 cm (03/02/22 12:20 PM) Patient Weight 84.9 kg (03/02/22 12:20 PM) Body Mass Index 33.16 kg/m2 (03/02/22 12:20 PM) Temperature [36.5-37.9 DegC] 36.5 DegC (03/02/22 12:20 PM) Respiratory Rate 16 br/min (03/02/22 12:20 PM) Blood Pressure 132/68mmHg (03/02/22 12:20 PM) Cuff Pulse Pressure 64 mmHg (03/02/22 12:20 PM) Social History Social History Type Response Smoking Status Never smoked cigaret viviane Sex Female Care Team Personnel Name: MD Francisco, Ted Louie Address: [address] [place] [address] [place]
--- OUTSIDE RECORDS SUMMARY | 2023-06-25 12:24 | External Medical Summary | Continuity of Care Document ---
Author Name Unknown Organization [address] Address [address] [facility] [place], [place] [id number] Care Team Providers Care Quality Worker Name Role Phone Ted Singh Primary Care Physician [phone] Encounter [facility] FINNBR [id number] Date(s): 03/16/23 - 03/16/[address] [facility] [address] [facility], [facility] [address] [place] [address] [phone] Encounter Diagnosis Body mass index [BMI] 37.0-37.9, adult(Discharge Diagnosis) - 03/16/23 Hospital discharge follow-up(Discharge Diagnosis) - 03/16/23 Neuropathy(Discharge Diagnosis) - 03/16/23 GERD (gastroesophageal reflux disease)(Discharge Diagnosis) - 03/16/23 Interstitial lung disease(Discharge Diagnosis) - 03/16/23 Discharge Disposition: Home or Self Care Attending Physician: MD Singh Michael P Referring Physician: MD Singh Michael P Allergies, Adverse Reactions, Alerts Substance Reaction Severity Status morphine hives Active penicillins hives Active sulfa drugs hives Active Latex rash Active Assessment and Plan Extracted from: Title:Office Visit Note Author:MD Francisco, Drew ael P Date:03/16/23 1.Hospital discharge follo w-up 2.Neuropathy 3.GERD (gastroesophageal reflux disease) 4.Interstitial lung disease This is a complex 72-year-old female with a significant past medical history of interstitial lung disease, atrial fibrillation, bipolar disorder, GERD, pulmonary hypertension who presents for hospital follow-up after recent hospitalization with increased fluid retention secondary to chronic steroid use. She is steadily recovered and is taking her prescribed medications. She continues on a prednisone taper. In addition, for her GERD, she has an increase in symptoms and was recommended to increase the dose per pulmonology. She will continue with pantoprazole 40 mg twice daily and a refill was sent into the pharmacy. In regards to her interstitial lung disease, it appears to be back at baseline. She continues to take the mycophenolate as prescribed per pulmonology as well as a steroid taper. Continue to follow along for recommendations. Finally, she has been experiencing what appears to be neuropathic pain in her legs bilaterally. We discussed this at length today. She has been previously prescribed gabapentin 100 mg daily for chronic cough which did help to suppress this cough. I think we should increase her dose and recommended to begin gabapentin 100 mg twice daily. She will do this for 1 week and then call to assess if this helps with her symptoms. We will then titrate up accordingly as needed to see if there is any additional relief. In addition, I like to order a couple labs including vitamin B-12 level, methylmalonic acid (as she is on vitamin B12 supplementation), and iron level. We will follow-up pending these blood test results. I have spent 47 minutes in vhib-dv-vlod interaction regarding review of ongoing symptoms, discussion counseling regarding furtherdiagnostic testing, discussion counseling regarding further treatment recommendations, discussion counseling regarding further management recommendations, and rhl-lwgu-ew-face time for chart review and documentation. Immunizations [...] qhs, Disp# 90 tab, Refills: 1, Pharmacy: [id number] Start Date: 01/03/23 Stop Date: 07/02/23 Status: Ordered busPIRone 10 mg oral tablet Start: 09/04/22 6:58:00 EST, 1 tab, PO, bid, Disp# 60 tab, Refills: 0, Pharmacy: [id number] Start Date: 09/04/22 Stop Date: 10/04/22 Status: Ordered diclofenac 1% topical gel Start: 02/05/23 9:12:00 EDT, See Instructions, Disp# 100 g, Refills: 0, APPLY 4 GRAMS TOPICALLY TO THE AFFECTED AREA 4 TIMES DAILY NEEDED FOR PAIN , Pharmacy: [id number] Start Date: 02/05/23 Status: Ordered gabapentin 100 mg oral capsule Start: 03/16/23 13:55:00 EDT, 1 cap, PO, bid, Disp# 60 cap, Pharmacy: [id number] Start Date: 03/16/23 Stop Date: 04/15/23 Status: Ordered ibuprofen 200 mg oral tablet [...] 1 TABLET BY MOUTH EVERY DAY, Pharmacy: [id number] Start Date: 11/06/22 Status: Ordered mycophenolate mofetil 500 mg oral tablet Start: 03/01/23 14:08:00 EDT, 1 tab, PO, bid Start Date: 03/01/23 Status: Ordered pantoprazole 40 mg oral delayed release tablet Start: 03/16/23 14:07:00 EDT, 1 tab, PO, bid, Disp# 180 tab, Refills: 0, Pharmacy: [id number] Start Date: 03/16/23 Stop [...] bid, Disp# 60 tab, Refills: 2, Pharmacy: [id number] Start Date: 09/08/22 Stop Date: 12/07/22 Status: Ordered traMADol 50 mg oral tablet Start: 04/26/22 14:13:00 EDT, 1 tab, PO, q6h, PRN: as needed for pain Start Date: 04/26/22 Status: Ordered unknown medication Start: 04/26/22 14:22:00 EDT, oxygen at 4 mL/min via NC, continuous Start Date: 04/26/22 Status: Ordered Vitamin B-12 1000 mcg oral tablet Start: 03/16/23 13:19:00 EDT, 1 tab, PO, Daily Start Date: 03/16/23 Status: Ordered Problem List Condition Confirmation Course Effective Dates Status H ealt Status Informant Asthma Confirmed Active Arthritis of [...] Clinical Service Informant Body mass index [BMI] 37.0-37.9, adult Discharge Diagnosis 03/16/23 Non-Specified Hospital discharge follow-up Discharge Diagnosis 03/16/23 Interstitial lung disease Discharge Diagnosis 03/16/23 Neuropathy Discharge Diagnosis 03/16/23 Non-Specified GERD (gastroesophageal reflux disease) Discharge Diagnosis 03/16/23 Procedures Procedure Date Related Diagnosis Body Site [...] a right knee hinged prosthesis. 6loop recorder Vital Signs Most recent to oldest [Reference Range]: 1 Height 160 cm (03/16/23 1:15 PM) Patient Weight 95.2 kg (03/16/23 1:15 PM) Body Mass Index 37.19 kg/m2 (03/16/23 1:15 PM) Temperature [36.5-37.9 DegC] 36.9 DegC (03/16/23 1:15 PM) Heart Rate 95 bpm (03/16/23 1:15 PM) Respiratory Rate 16 br/min (03/16/23 1:15 PM) Blood Pressure 126/68mmHg (03/16/23 1:15 PM) Social History Social History Type Response Smoking Status Never smoked cigaret viviane Sex Female Medicine Outpt Note * MD Francisco, Ted Louie: PERFORM Event Display: Medicine Outpt Note Authored Date: [id number] Chief Complaint follow up on tcm History of Present Illness Marichuy Ye is a 72 year old female who presents for follow up regarding elevated blood pressure. She established care with me on 12/01/21 and was last seen by me on 08/03/22. She was admitted to [facility] from 03/02/2023 - 03/03/2023 due to what was felt to be related to excessivesteroid use/fluid retention along with dietary indiscretion. She was treated with tapering her prednisone as well as treating with furosemide. She was continued on furosemide 20 mg daily after discharge as well as supplemental potassium (KCl 20 mill equivalents) she was advised to monitor her weights and if there was a 3 pound weight gain in in a day or 5 pound weight gain in a week she was advised to contact pulmonology. She was also treated for concern of infection and was discharged with azithromycin to complete a 5-day course of antibiotics. During hospitalization, she did have a slight elevation in her troponin that was felt to be related to demand ischemia. An echocardiogramwas performed without any significant changes. During her hospitalization, for some reason TSH was checked and was slightly low but there was normal T4/T3. Recommendation for repeat testing during follow-up was recommended. She was seen by pulmonology (03/13/2023) for follow-up regarding her interstitial lung disease, pulmonary hypertension, and hypoxia. She was continued on her mycophenolate 500 mg twice daily + prednisone 10 mg every other day. She was also continued on furosemide 20 mg daily. In addition, for the pulmonary hypertension, she was continued on sildenafil 20 mg 3 times daily. Overall, she has been feeling improved since her discharge. She has had ongoing leg discomfort over theright leg. She was worried that this could be related to her previous surgery and was recently seen by orthopedics. She reports thatrepeat imaging demonstratedno significant changes toherright kneeand no furthertreatment was indicated. She reports that over the past year shehas had what is felt like numbness and tingling bilaterally in her lower extremities. She also has noticedsharp pains as well as shooting painsand sensitive to touch. She has not tried anything for this. PT has been rubbinglotion on her legs which helps out somewhat. Problem List: #Hypothyroidism: long standing since being diagnosed as a teenager; currently managed with levothyroxine 137 mcg daily. #Tobacco use disorder, in sustained remission: 1ppd for about 6 years #Bipolar Disorder: Previously followed by [facility] (Dr. Paul). Currently managed with buspirone 10mg BID + topiramate 100mg BID.Alprazolam was recently discontinued. She is followed by [facility]. #Hyperlipidemia: for secondary prevention after CVA; she was on atorvastatin 40 mg daily but did recently discontinue it. #Atrial Fibrillation: felt to be the cause of CVA (07/05) and has been treated with BB and NOAC, however loop recorder without e/o of afib; she is followed by [facility], last appointment 07/13/22, and her AC has been discontinued along with her BB #GERD: currently taking pantoprazole 40mg BID, increased dose 03/06per pulmonary #Hx COVD-19 Infection x2 (01/02 and 07/06) #Hx IBS: managed with amitriptyline 10mg QHS. She reports a variation between constipation and diarrhea, which can be hard to regulate. She has had increasing episodes of loose stool. She does intermittently use loperamide OTC for her symptoms. 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 Followed by [facility], ILD clinic as well as locally with [facility] Pulmonology group; Given the history of positive ALEXEY is felt that she has mixed connective tissue disorder I will be and currently managed with prednisone 15mg daily; recently referred to pulmonary rehab as well; On supplemental O2. #Pulmonary hypertension: With recent echo demonstrating an elevated pulmonary artery systolic pressure of 40 to 50 mmHg. There is consideration of right heart catheterization per [facility]. Currently treated with sildenafil #Stress incontinence: ongoing, managed with adult diapers to assist with incontinence Review of Systems As per HPI Physical Exam Vitals & Measurements T:36.9C HR:95(Monitored) RR:16 BP:126/68 SpO2:96% HT:160cm WT:95.2kg WT:95.200kg(Dosing) BMI:37.19 GEN: Well developed, well nourished, no acute distress HEENT: NCAT, MMM, EOMI, PERRL CV: RRR, no murmurs, normal S1 and S2 LUNG: Crackles at the bases bilaterally ABD: soft nontender, nondistended, bowel sounds normoactive EXT: Increased symmetric enlargement of the legs bilaterally that are sensitive to touch as well asdecreased sensation bilaterally MSK: Strength in the upper and lower extremities is preserved NEURO: AxOx3, moving all extremities; no focal neurologic deficits; CN II-XII grossly intact Assessment/Plan 1.Hospital discharge follow-up 2.Neuropathy 3.GERD (gastroesophageal reflux disease) 4.Interstitial lung disease This is a complex 72-year-old female with a significant past medical history of interstitial lung disease, atrial fibrillation, bipolar disorder, GERD, pulmonary hypertension who presents for hospital follow-up after recent hospitalization with increased fluid retention secondary to chronic steroid use. She is steadily recovered and is taking her prescribed medications. She continues on a prednisone taper. In addition, for her GERD, she has an increase in symptoms and was recommended to increase the doseper pulmonology. She will continue with pantoprazole 40 mg twice daily and a refill was sent intothe pharmacy. In regards to her interstitial lung disease, it appears to be back at baseline. She continues to take the mycophenolate as prescribed per pulmonology as well as a steroid taper. Continue to follow along for recommendations. Finally, she has been experiencing what appears to be neuropathic pain in her legs bilaterally. We discussed this at length today. She has been previously prescribed gabapentin 100 mg daily for chronic cough which did help to suppress this cough. I think we should increase her dose and recommended to begin gabapentin 100 mg twice daily. She will do this for 1 week and then call to assess if this helps with her symptoms. We will then titrate up accordingly as needed to see if there is any additional relief. In addition, I like to order a couple labs including vitamin B-12 level,methylmalonic acid (as she is on vitamin B12 supplementation), and iron level. We will follow-up pending these blood test results. I have spent 47 minutes in ntnn-ha-[id number] interaction regarding review of ongoing symptoms, discussion counseling regarding furtherdiagnostic testing, discussion counseling regarding further treatment recommendations, discussion counseling regarding further management recommendations, and vax-cxsk-ls-face time for chart review and documentation. Problem List/Past Medical History Ongoing Arthritis of both feet Asthma Bipolar disorder Cough Fibromyalgia GERD (gastroesophageal reflux disease) History of gastric surgery Hyperlipidemia IBS (irritable bowel syndrome) Interstitial lung disease IT band syndrome Osteoarthritis of both knees Pes anserine bursitis Pes planus of both feet Spinal stenosis Thyroid disease Historical Chronic bronchitis Neurogenic claudication Procedure/Surgical History Bronchoscopy (08/01/2022)DEXA (dual energy X-ray photon absorptiometry) scan of lateral spine(10/15/2016)Colonoscopy (10/15/2015)ArthroscopyHysterectomyGastricLoopHernia repai rBronchoscopyCholecystectomyKnee arthroplasty Medications amitriptyline(amitriptyline 25 mg oral tablet), 25 mg= 1 tab, PO, qhs, 1 refills busPIRone(busPIRone 10 mg oral tablet), 10 mg= 1 tab, PO, bid cyanocobalamin(Vitamin B-12 1000 mcg oral tablet), 1000 mcg= 1 tab, PO, Daily diclofenac topical(diclofenac 1% topical gel), See Instructions gabapentin(gabapentin 100 mg oral capsule), 100 mg= 1 cap, PO, bid ibuprofen(ibuprofen 200 mg oral tablet), 400 mg= 2 tab, PO, q6h, PRN lamoTRIgine(lamoTRIgine 150 mg oral tablet), 150 mg= 1 tab, PO, Daily levothyroxine(levothyroxine 137 mcg (0.137 mg) oral tablet), See Instructions, 5 refills mycophenolate mofetil(mycophenolate mofetil 500 mg oral tablet), 500 mg= 1 tab, PO, bid pantoprazole(pantoprazole 40 mg oral delayed release tablet), 40 mg= 1 tab, PO, bid predniSONE(predniSONE 10 mg oral tablet) senna(Senokot Extra 8.6 mg oral tablet), 8.6 mg= 1 tab, PO, bid, PRN sildenafil(sildenafil 20 mg oral tablet), 20 mg= 1 tab, PO, tid topiramate(Topamax 100 mg oral tablet), 100 mg= 1 tab, PO, bid, 2 refills traMADol(traMADol 50 mg oral tablet), 50 mg= 1 tab, PO, q6h, PRN unknown medication unlisted medication(PREDNISONE 5 MG TABS) Allergies Latexrash morphinehives penicillinshives sulfa drugshives Social History Smoking Status Never smoked cigarettes Immunizations Vaccine Date Status influenza virus vaccine, inactivated 08/03/2022 Given influenza virus vaccine, inactivated 10/19/2021 Given SARS-CoV-2 (COVID-19) mRNA BNT-162b2 vax 01/18/2021 Recorded Comments : 2021-10-19: Historical information-source unspecified SARS-CoV-2 (COVID-19) mRNA BNT-162b2 vax 12/11/2020 Recorded Comments : 2021-10-19: Historical information-source unspecified influenza virus vaccine, inactivated 07/16/2018 Given Recommendations Health Maintenance Pending(in the next year) OverDue Adult Influenza Vaccine due04/14/22and every 1year Due Adult COVID-19 Vaccination due03/16/23Unknown Frequency Adult Tdap/Td Vaccine due03/16/23Unknown Frequency Breast Cancer Screening due03/16/23Unknown Frequency Hepatitis C Screening due03/16/23One-time only Medicare Annual Wellness Visit due03/16/23and every 1year Pneumococcal Vaccine Older Adults due03/16/23One-time only Shingles Vaccine due03/16/23One-time only Due In Future Body Mass Index not due until03/15/24and every 1year Satisfied(in the past 1 year) Satisfied Body Mass Index on03/16/23.Satisfied by PENNY Caballero Angela Electronic Signature on File Electronically Reviewed/Signed by: Ted Singh MD Author Signature Dt/Tm:03/16/2023 02:23 PM Division of Internal Medicine MPM Patient Care team information Care Team Personnel Name: MD Humberto, Shakeel Plummer Position: Physician - Pulmonary Med Member Role: Lifetime Relationship Address: Address: [address] [place] [address] [address] [place] [address] [place] Name: MD Singh Michael P Position: Physician - Internal Med Member Role: Primary Care Provider Address: Address: [address] [place] [address] [address] [place] [address] [place]
--- OUTSIDE RECORDS SUMMARY | 2023-06-25 12:25 | External Medical Summary | Continuity of Care Document ---
Author Name Unknown Organization [address] Address [address] [facility] [place], [place] [id number] Care Team Providers Care [place] Operator Name Role Phone Ted Singh Primary Care Physician [phone] Encounter [facility] [id number] Date(s): 12/01/21 - 12/01/[address] [place] [address] [facility], [address] [place] [address] [phone] Encounter Diagnosis Bipolar disorder(Discharge Diagnosis) - 12/01/21 Body mass index [BMI] 34.0-34.9, adult(Discharge Diagnosis) - 12/01/21 Cough(Discharge Diagnosis) - 12/01/21 Hypothyroidism(Discharge Diagnosis) - 12/01/21 Elevated serum creatinine(Discharge Diagnosis) - 12/01/21 Discharge Disposition: Home or Self Care Attending Physician: MD Singh Michael P Referring Physician: MD Singh Michael P Allergies, Adverse Reactions, Alerts Substance Reaction Severity Status morphine hives Active penicillins hives Active sulfa drugs hives Active Assessment and Plan Extracted from: Title:Office Visit Note Author:MD Francisco, [facility] nicole P Date:12/01/21 1.Bipolar disorder Chronic , Somewhat decompensated , most likely related to ongoing psychosocial stressors. She continues to work closely with psychiatry. Continue to manage with psychiatry as she is doing. Continuing with buspirone 5mg BID + topiramate 50mg BID + alprazolam 0.5mg PRN for acute anxiety. Plan to continue to monitor and follow up with further recs per psychiatry. 2.Cough Chronic , Stable , without clear etiology at this time. DDx to include post- COVID syndrome, obstructive lung disease, ILD. She has planned PFTs and CT scan pending. Continue to manage with albuterol PRN for shortness of breath + guaifenesin OTC. Plan to follow up pending studies as well as pulm follow up as she is doing. 3.Hypothyroidism Chronic , suspected to be Stable , without recent TSH.Goal is TSH wnl. Will plan to continue with levothyroxine 137mcg daily and repeat TSHwith next set of blood testing. Follow up pending results. 4.Elevated serum creatinine Suspected to have CKD, though no recent renal function. Will plan to proceed today with CMP to better characterize kidney function. Will follow up pending results. I have spent 45 minutes in face to face interaction regarding review of ongoing symptoms, review of chronic medical conditions, discussion and counseling regarding further diagnostic testing, discussion and counseling regarding further treatment recommendations and discussion and counseling regarding further management options as well as non face to face interaction for chart review and documentation. Immunizations Given [...] Ordered amitriptyline 10 mg oral tablet Start: 04/23/19 17:03:30 EDT, See Instructions, Disp# 90, TAKE 1 TABLET BY MOUTH EVERYDAY AT BEDTIME, Pharmacy: [facility]acy #[id number] Start Date: 04/23/19 Status: Ordered atorvastatin 40 mg oral tablet [...] 1 TABLET BY MOUTH EVERY DAY, Pharmacy: [facility]/pharmacy #[id number] Start Date: 02/20/19 Status: Ordered Metoprolol Tartrate 25 mg oral tablet Start: 10/19/21 11:05:00 EST Start Date: 10/19/21 Status: Ordered pantoprazole 40 mg oral delayed release tablet Start: 07/01/19 11:55:05 EDT, See Instructions, Disp# 90, Refills: 1, TAKE 1 TABLET BY MOUTH EVERY DAY, Pharmacy: [facility]/pharmacy #[id number] Start Date: 07/01/19 Status: Ordered topiramate 25 mg oral capsule Start: 07/16/18 10:14:00 EDT, 2 cap, PO, bid, taking 50 mg bid Start Date: 07/16/18 Status: Ordered Ventolin HFA 90 mcg/inh inhalation aerosol Start: 11/10/21 14:24:00 EST, 1 puff, inhaled, qid, Disp# 18 g, PRN: as needed for wheezing, Pharmacy: [id number] Start Date: 11/10/21 Stop Date: 12/10/21 Status: Ordered Mental Status 12/01/21 Barriers to Learning one year None evide nt Mandatory Health Literacy Documentation Yes Health Literacy Communication Barriers N ever Problem List Condition Effective Dates Status Health Status Inform ant Asthma(Confirmed) Active Bipolar disorder(Confirmed) Active Pes anserine bursitis(Confirmed) Active Cough(Confirmed) Active Thyroid disease(Confirmed) Active Fibromyalgia(Confirmed) Active History of gastric surgery(Confirmed) Active IT band syndrome(Confirmed) Active Osteoarthritis of both knees(Confirmed) Active Spinal stenosis(Confirmed) Active Diagnosis Diagnosis Type Effective Dates Health Status Clinical Service Informant Body mass index [BMI] 34.0-34.9, adult Discharge Diagnosis 12/01/21 Non-Specified Cough Discharge Diagnosis 12/01/21 Hypothyroidism Discharge Diagnosis 12/01/21 Bipolar disorder Discharge Diagnosis 12/01/21 Elevated serum creatinine Discharge Diagnosis 12/01/21 Procedures Procedure Date Related Diagnosis Body Site Status DEXA (dual energy X-ray phot on absorptiometry) scan of lateral spine 1 10/15/16 Completed Colonoscopy 2 10/15/15 Completed 1osteopenia 2wnl Vital Signs Most recent to oldest [Reference Range]: 1 Height 160 cm (12/01/21 12:57 PM) Patient Weight 88 kg (12/01/21 12:57 PM) Body Mass Index 34.38 kg/m2 (12/01/21 12:57 PM) Temperature [36.5-37.9 DegC] 36.2 DegC *LOW* (12/01/21 12:57 PM) Heart Rate 90 bpm (12/01/21 12:57 PM) Respiratory Rate 20 br/min (12/01/21 12:57 PM) Blood Pressure 110/70mmHg (12/01/21 12:57 PM) Cuff Pulse Pressure 40 mmHg (12/01/21 12:57 PM) Social History Social History Type Response Smoking Status Former Smoker, quit within 31 days - 1 yr Sex Female
--- OUTSIDE RECORDS SUMMARY | 2023-06-25 12:25 | External Medical Summary | Continuity of Care Document ---
Author Name Unknown Organization [address] Address [address] [place], [place] [id number] Care Team Providers Care Business Intelligence Manager Name Role Phone Ted Singh Primary Care Physician [phone] [facility]counter [facility] [id number] Date(s): 11/10/21 - 11/10/[address] [place] [id number] [facility], [address] [place] [address] [phone] Encounter Diagnosis Cough(Discharge Diagnosis) - 11/10/21 Shortness of breath(Discharge Diagnosis) - 11/10/21 Discharge Disposition: Home or Self Care Attending Physician: MD Singh Michael P Allergies, Adverse Reactions, Alerts Substance Reaction Severity Status morphine hives Active penicillins hives Active sulfa drugs hives Active Assessment and Plan Extracted from: Title:Office Visit Note Author:MD Francisco, Drew rivera P Date:11/10/21 1.Cough Ordered: CT Chest High Resolution 2.Shortness of breath Ordered: CT Chest High Resolution Orders: albuterol, Start: 11/10/21 14:24:00 EST, 1 puff, inhaled, qid, Disp# 18 g, PRN: as needed for wheezing, Pharmacy: [id number] This is a 71-year-old femalewith a significant past medical history ofmild intermittent asthmaand COVID-19 infection (01/02)who presents with acute on chronicproductive coughand shortness of breath. Exam demonstratescracklesbilaterally. Her current symptoms seem mildandtreating as of amildobstructive lung disease exacerbationwithstanding albuteroltwice dailyplusas needed for shortness of breathand wcheyqklmsluram-kre-pgzxmok. I do not feel steroidare warranted at this time, and she agrees.The constellation of progressive dyspnea, cough and crackles present on exam vaguely suspicious for the potential of an interstitial lung disease and perhaps symptoms related to long-COVID. Given that she had findings suggestive of this on x-ray, I think it is prudent that we proceed with high-res CT for better characterization of the lung parenchyma. She is in agreement with this. Reach out if symptoms were to worsen or fail to improve with the above treatments. We will plan to have close follow up in 2 weeks or sooner to discuss her symptoms and follow up on testing. I have spent50 minutes in face to face interaction regarding review of chronic medical conditions, discussion and counseling regarding ongoing symptoms, discussion and counseling regarding further diagnostic testing, discussion and counseling regarding further treatment options and non face to face interaction regarding chart review and documentation. Immunizations Given and [...] TABLET BY MOUTH EVERYDAY AT BEDTIME, Pharmacy: [facility]/pharmacy #[id number] Start Date: 04/23/19 Status: Ordered atorvastatin 40 [...] 1 TABLET BY MOUTH EVERY DAY, Pharmacy: [facility]/pharmacy #[id number] Start Date: 02/20/19 Status: Ordered Metoprolol Tartrate 25 mg oral tablet Start: 10/19/21 11:05:00 EST Start Date: 10/19/21 Status: Ordered pantoprazole 40 mg oral delayed release tablet Start: 07/01/19 11:55:05 EDT, See Instructions, Disp# 90, Refills: 1, TAKE 1 TABLET BY MOUTH EVERY DAY, Pharmacy: [facility]/pharmacy #[id number] Start Date: 07/01/19 Status: Ordered topiramate 25 mg oral capsule Start: 07/16/18 10:14:00 EDT, 2 cap, PO, bid, taking 50 mg bid Start Date: 07/16/18 Status: Ordered Ventolin HFA 90 mcg/inh inhalation aerosol Start: 11/10/21 14:24:00 EST, 1 puff, inhaled, qid, Disp# 18 g, PRN: as needed for wheezing, Pharmacy: [id number] Start Date: 11/10/21 Stop Date: 12/10/21 Status: Ordered Mental Status 11/10/21 Barriers to Learning one year None evide nt Mandatory Health Literacy Documentation Yes Health Literacy Communication Barriers U nable to assess Problem List Condition Effective Dates Status Health Status Inform ant Asthma(Confirmed) Active Bipolar disorder(Confirmed) Active Pes anserine bursitis(Confirmed) Active Thyroid disease(Confirmed) Active Fibromyalgia(Confirmed) Active History of gastric surgery(Confirmed) Active IT band syndrome(Confirmed) Active Osteoarthritis of both knees(Confirmed) Active Spinal stenosis(Confirmed) Active Diagnosis Diagnosis Type Effective Dates Health Status Cl inical Service Informant Shortness of breath Discharge Diagnosis 11/10/21 Cough Discharge Diagnosis 11/10/21 Procedures Procedure Date Related Diagnosis Body Site Status DEXA (dual energy X-ray phot on absorptiometry) scan of lateral spine 1 10/15/16 Completed Colonoscopy 2 10/15/15 Completed 1osteopenia 2wnl Vital Signs Most recent to oldest [Reference Range]: 1 Temperature [36.5-37.9 DegC] 35.9 DegC *LOW* (11/10/21 1:34 PM) Heart Rate 96 bpm (11/10/21 1:34 PM) Respiratory Rate 20 br/min (11/10/21 1:34 PM) Blood Pressure 118/88mmHg (11/10/21 1:34 PM) Cuff Pulse Pressure 30 mmHg (11/10/21 1:34 PM) Social History Social History Type Response Smoking Status Former Smoker, quit within 31 days - 1 yr Sex Female
--- OUTSIDE RECORDS SUMMARY | 2023-06-25 12:25 | External Medical Summary | Continuity of Care Document ---
Author Name Unknown Organization [address] Address [address] [place], [place] [id number] Care Team Providers Care Snapper On Name Role Phone John Hampton Primary Care Physician [phone] Encounter [facility] [id number] Date(s): 10/19/21 - 10/19/[address] Jose Juan [facility] [address], [address] [place] [address] [phone] Encounter Diagnosis Establishing care with new doctor, encounter for(Discharge Diagnosis) - 10/19/21 COPD with chronic bronchitis(Discharge Diagnosis) - 10/19/21 Bipolar disorder(Discharge Diagnosis) - 10/19/21 Body mass index [BMI] 34.0-34.9, adult(Discharge Diagnosis) - 10/19/21 Discharge Disposition: Home or Self Care Attending Physician: MD Hampton Ravishankar E Referring Physician: MD Hampton Ravishankar E Allergies, Adverse Reactions, Alerts Substance Reaction Severity Status morphine hives Active penicillins hives Active sulfa drugs hives Active Assessment and Plan Extracted from: Title:Office Visit Note Author:MD Hampton Ravishan kar E Date:10/19/21 1.Establishing care with n doctor, encounter for - Will get prior records and abstract to chart accordingly - Pt reports she's up to date on vaccines but for covid and flu, wishes to get flu today 2.COPD with chronic bronchitis - Flu shot given today - Pt reports pneumococcal vaccine in past in [place], no records - Referral to pulm, requesting different provider as she didn't get along with Dr. Lyman per her report - Discussed number of causes of her symptoms and will need to get records to further explain based on what testing has been done, likely pulm fibrosis vs copd with chronic bronchitis - Encouraged to follow through with further testing/evaluation recommended by pulmonology despite her frustrations given declining clinical picture - ED indications reviewed, none at present. 3.Bipolar disorder - Recommended she continue to follow with psychiatry - She reluctantly agrees Orders: influenza virus vaccine, inactivated, 0.7 mL, injection, IM, ONCE, Routine, 10/19/21 12:00:00 EST, 10/19/21 12:00:00 EST, HIGH DOSE Fluzone, restricted to patients 65 years of age or older. f/u PRN basis pending records release. Time: 50mins 10- pre-visit chart review 35- visit, inclusive of history, exam, and discussion of assessment/plan 5- post-visit documentation/orders/coordination of care Immunizations Given and Recorded Vaccine Date Status [...] TABLET BY MOUTH EVERYDAY AT BEDTIME, Pharmacy: [facility]/pharmacy #[id number] Start Date: 04/23/19 Status: Ordered atorvastatin 40 [...] 1 TABLET BY MOUTH EVERY DAY, Pharmacy: [facility]/pharmacy #[id number] Start Date: 02/20/19 Status: Ordered Metoprolol Tartrate 25 mg oral tablet Start: 10/19/21 11:05:00 EST Start Date: 10/19/21 Status: Ordered pantoprazole 40 mg oral delayed release tablet Start: 07/01/19 11:55:05 EDT, See Instructions, Disp# 90, Refills: 1, TAKE 1 TABLET BY MOUTH EVERY DAY, Pharmacy: [facility]/pharmacy #[id number] Start Date: 07/01/19 Status: Ordered topiramate 25 mg oral capsule Start: 07/16/18 10:14:00 EDT, 2 cap, PO, bid, taking 50 mg bid Start Date: 07/16/18 Status: Ordered Ventolin HFA 90 mcg/inh inhalation aerosol Start: 12/04/19 10:55:00 EST, 1 puff, inhaled, qid, PRN: as needed for wheezing Start Date: 12/04/19 Status: Ordered Mental Status 10/19/21 Barriers to Learning one year None evide [...] Effective Dates Health Status Clinical Service Informant Establishing care with new doctor, encounter for Discharge Diagnosis 10/19/21 Body mass index [BMI] 34.0-34.9, adult Discharge Diagnosis 10/19/21 Non-Specified COPD with chronic bronchitis Discharge Diagnosis 10/19/21 Bipolar disorder Discharge Diagnosis 10/19/21 Procedures Procedure Date Related Diagnosis Body Site Status DEXA (dual energy X-ray phot on absorptiometry) scan of lateral spine 1 10/15/16 Completed Colonoscopy 2 10/15/15 Completed 1osteopenia 2wnl Vital Signs Most recent to oldest [Reference Range]: 1 Height 160 cm (10/19/21 11:09 AM) Patient Weight 88.2 kg (10/19/21 11:09 AM) Body Mass Index 34.45 kg/m2 (10/19/21 11:09 AM) Temperature [36.5-37.9 DegC] 36.5 DegC (10/19/21 11:09 AM) Heart Rate 88 bpm (10/19/21 11:09 AM) Respiratory Rate 20 br/min (10/19/21 11:09 AM) Blood Pressure 116/80mmHg (10/19/21 11:09 AM) Cuff Pulse Pressure 36 mmHg (10/19/21 11:09 AM) Social History Social History Type Response Smoking Status Never smoked cigaret viviane Sex Female
--- OUTSIDE RECORDS SUMMARY | 2023-06-25 12:25 | External Medical Summary | Continuity of Care Document ---
Author Name Unknown Organization [address] Address [address] [place] [id number] Care Team Providers Care Washery Engineer Name Role Phone Ted Singh Primary Care Physician [phone] Encounter [facility] [id number] Date(s): 01/02/22 - 01/02/[address] [facility] [address], [address] [place] [address] [phone] Encounter Diagnosis Cough(Discharge Diagnosis) - 01/02/22 Hypoxia(Discharge Diagnosis) - 01/02/22 Chronic idiopathic pulmonary fibrosis(Discharge Diagnosis) - 01/02/22 Abdominal mass(Discharge Diagnosis) - 01/02/22 Cough, unspecified(Final) - Hypoxemia(Final) - Intra-abdominal and pelvic swelling, mass and lump, unspecified site(Final) - Discharge Disposition: Home or Self Care Attending Physician: DO Coon Kristen M Allergies, Adverse Reactions, Alerts Substance Reaction Severity [...] TABLET BY MOUTH EVERYDAY AT BEDTIME, Pharmacy: [facility]/pharmacy #[id number] Start Date: 04/23/19 Status: Ordered [...] 1 TABLET BY MOUTH EVERY DAY, Pharmacy: [facility]/pharmacy #[id number] Start Date: 02/20/19 Status: Ordered Metoprolol Tartrate 25 mg oral tablet Start: 10/19/21 11:05:00 EST Start Date: 10/19/21 Status: Ordered pantoprazole 40 mg oral delayed release tablet Start: 07/01/19 11:55:05 EDT, See Instructions, Disp# 90, Refills: 1, TAKE 1 TABLET BY MOUTH EVERY DAY, [id number] Start Date: 07/01/19 Status: Ordered Spiriva Respimat 28 ACT 2.5 mcg/inh inhalation aerosol Start: 01/02/22 11:44:00 EDT, 2 inh, inhaled, Daily, Disp# 1 kit, Refills: 1, Pharmacy: [id number] Start Date: 01/02/22 Status: Ordered Tessalon 200 mg oral capsule Start: 01/02/22 11:45:00 EDT, 1 cap, PO, tid, Disp# 30 cap, Refills: 0, Pharmacy: [id number] Start Date: 01/02/22 Stop Date: 01/12/22 Status: Ordered topiramate 25 mg oral capsule Start: 07/16/18 10:14:00 EDT, 2 cap, PO, bid, taking 50 mg bid Start Date: 07/16/18 Status: Ordered Ventolin HFA 90 mcg/inh inhalation aerosol Start: 11/10/21 14:24:00 EST, 1 puff, inhaled, qid, Disp# 18 g, PRN: as needed for wheezing, Pharmacy: [id number] Start Date: 11/10/21 Stop Date: 12/10/21 Status: Ordered Mental Status 01/02/22 Barriers to Learning one year None evide [...] Effective Dates Health Status Clinical Service Informant Cough Discharge Diagnosis 01/02/22 Chronic idiopathic pulmonary fibrosis Discharge Diagnosis 01/02/22 Non-Specified Hypoxia Discharge Diagnosis 01/02/22 Abdominal mass Discharge Diagnosis 01/02/22 Procedures Procedure Date Related Diagnosis Body Site Status DEXA (dual energy X-ray phot on absorptiometry) scan of lateral spine 1 10/15/16 Completed Colonoscopy 2 10/15/15 Completed 1osteopenia 2wnl Results Laboratory List Name Date Parathyroid Hormone, Intact (PTH, INTACT ) 01/02/22 Most recent to oldest [Reference Range]: 1 PTH Intact [15.0-65.0 pg/mL] 38.3 pg/mL (01/02/22 11:45 AM) Vital Signs Most recent to oldest [Reference Range]: 1 Temperature [36.5-37.9 DegC] 36.7 DegC (01/02/22 11:12 AM) Heart Rate 76 bpm (01/02/22 4:44 PM) Blood Pressure 116/72mmHg (01/02/22 11:12 AM) Cuff Pulse Pressure 44 mmHg (01/02/22 11:12 AM) Social History Social History Type Response Smoking Status Never smoked cigaret viviane Sex Female
== END 2023-06-18 15:56 | disposition home or self-care (01) | DRG 314 ==
LOC: ED 17:26 → SUATTDRO 06-15 00:39 → INTOOBSV 06-15 00:39 → 2W 06-15 00:39

== ENCOUNTER 2023-08-29 15:36 | Inpatient (IN) ==
--- NOTE | 2023-08-29 16:30 | XRay Report ---
XR chest 1V not portable HISTORY: 73 years-old Female Chest pain, nonspecific acute chest pain with wheezing COMPARISON: 06/14/2023 TECHNIQUE: AP view of the chest FINDINGS: Cardiac silhouette is enlarged. Chronic interstitial lung disease. No pneumothorax, pleural effusion or overt pulmonary edema. Degenerative changes of the shoulders and spine. IMPRESSION: 1. No acute process. 2. Cardiomegaly with chronic interstitial lung disease. ACT 112: Negative or not required by law. The above report was generated using voice recognition software. It may contain grammatical, syntax o r spelling errors. Electronically signed by: Osvaldo Malone M.D. 08/29/2023 4:29 PM
[2023-08-29 17:22] LABS: Basophils # (auto) 0.09 K/uL (0.00-0.20); Basophils % (auto) 0.8 %; Eosinophils # (auto) 0.52 K/uL (0.00-0.50); Eosinophils % (auto) 4.5 %; Hematocrit (blood only) 41.2 % (37.0-47.0); Hemoglobin 12.9 g/dl (12.0-16.0); Immature Granulocytes # (auto) 0.08 K/uL (0.01-0.20); Immature Granulocytes % (auto) 0.7 %; Lymphocytes # (auto) 1.93 K/uL (1.20-3.40); Lymphocytes % (auto) 16.9 %; Mean Corpuscular Hgb Conc 31.3 g/dL (32.0-36.0); Mean Corpuscular Volume 82.9 fL (80.0-100.0); Monocytes # (auto) 1.07 K/uL (0.11-0.59); Monocytes % (auto) 9.4 %; Neutrophils # (auto) 7.75 K/uL (1.40-6.50); Neutrophils % (auto) 67.7 %; Platelet Count 297 K/uL (130-400); RDW Coefficient of Variation 16.4 % (11.5-14.5); RDW Standard Deviation 49.2 fL (36.4-46.3); Red Blood Count 4.97 M/uL (4.20-5.40); White Blood Count 11.44 K/ul (4.8-10.8)
[2023-08-29 17:34] LABS: Partial Thromboplastin Time 26.8 Seconds (21.0-31.0); Prothrombin Time 11.1 Seconds (9.0-12.0)
[2023-08-29 17:39] LABS: Anion Gap 9 (3-11); Bilirubin,Total 0.5 mg/dl (0.2-1.0); Calcium 9.7 mg/dl (8.6-10.3); Carbon Dioxide 24 mmol/L (21-32); Chloride 105 mmol/L (98-107); Potassium 3.6 mmol/L (3.5-5.1); Sodium 138 mmol/L (136-145)
[2023-08-29 17:45] LABS: Alanine Aminotransferase 11 U/L (7-52); Albumin Globulin Ratio 1.3 (0.9-2); Alkaline Phosphatase 92 U/L (34-104); Aspartate Aminotransferase 15 U/L (13-39); BUN Creatinine Ratio 8.9 (10-20); Blood Urea Nitrogen 11 mg/dl (6-23); Est GFR (Non-African American) 43.2 ml/min; Glucose 99 mg/dl (70-99(Fasting))
[2023-08-29 17:55] LABS: Troponin I High Sensitivity 166.6 pg/ml (0-14)
[2023-08-29] MEDS ORDERED: BUMETANIDE 1 MG in SYRINGE 0 ML IV STA (18:14)
[2023-08-29] MEDS ORDERED: ALBUT/IPRATROP 3MG/0.5MG NEB 3 ML VIAL NEB STA (18:14)
[2023-08-29] MEDS ORDERED: LABETALOL HCL IV 5 MG/ML 20ML IV STA (18:16)
--- NOTE | 2023-08-29 18:35 | Emergency Department Note ---
Impression & Plan SOB (shortness of breath), Elevated troponin, Fluid overload, Pedal edema, Elevated brain natriuretic peptide (BNP) level, Leukocytosis, Hypertension ED Provider Note NAME: MOHINI AMEZCUA AGE: 73 SEX: F : 1950 ARRIVES VIA: Walk-In INFORMANT: [Patient] ED PROVIDER(S): [Jose Maria Grossman MD] CHIEF COMPLAINT: Respiratory problems HISTORY OF PRESENT ILLNESS: The patient is a 73-year-old female with chronic lung disease. She typically wears 3 L of oxygen. She states that last week, she began feeling short of breath with a cough and some green phlegm production. No fever. The patient was placed on antibiotics, Zithromax. She states that she has not had any improvement, she finished the antibiotics yesterday. Patient is still coughing and still is short of breath. The cough is still productive. She has had a bit of a stuffy nose and some postnasal drip. She has had some diarrhea with some nausea but no vomiting. The patient has noticed increasing pedal edema, she is not currently on any diuretic. She has an inhaler that she uses at home, she does not have access to a nebulizer. Of note, patient has increased her oxygen level to 4 L for the last few days to help with her breathing. PMHx/PSHx/Social Hx: See Below PHYSICAL EXAM: GENERAL: Patient is in no acute distress. HEENT: No acute trauma, normocephalic atraumatic, mucous membranes moist, no nasal congestion. NECK: No stridor, no adenopathy, no meningismus, trachea is midline. LUNGS: Few scattered crackles heard, no wheezing, no obvious respiratory distress. HEART: Without murmurs gallops or rubs, regular rate and rhythm. ABDOMEN: Soft, nontender, no peritonitis. EXTREMITIES: No cyanosis, full range of motion of all the joints without pain or difficulty. Moderate bilateral pedal edema. NEUROLOGIC: Oriented x 3, no acute motor or sensory deficits, no focal weakness. SKIN: No jaundice, no diaphoresis. DIFFERENTIAL DIAGNOSIS: CHF, pedal edema, fluid overload, pneumonia, bronchitis, exacerbation of chronic lung disease, [place], among others. EMERGENCY DEPARTMENT PROCEDURES: MEDICAL DECISION MAKING: There is a mild leukocytosis, this could be consistent with infection or just the stress of her situation. There was a normal hemoglobin and platelet count. No coagulopathy. There was a mild elevation to the creatinine, no emergent intervention required. No concerning liver enzyme elevation. ECG showed a sinus rhythm with a left bundle branch block, no obvious ischemia. Cardiac enzyme testing x1 was elevated at around 160. This troponin elevation could be secondary to cardiac injury or potentially just mismatch from her dyspnea. Further troponin trending is warranted. BNP was elevated consistent with fluid overload. Chest x-ray does appear to show some increased congestion/CHF. Some chronic lung disease was seen. Respiratory bio fire returned completely negative. The patient was aggressively managed given her dyspnea. She received IV Bumex, 1 mg. She was given a DuoNeb. Because of her high blood pressure, she was given IV labetalol. With the above treatment, the patient does seem improved, the blood pressure has improved, she seems more comfortable. She has diuresed. I did speak with the patient and case management, she has multiple reasons to be short of breath, primarily though, I believe she is fluid overloaded. The on-call hospitalist was consulted. Prior/Outside records/notes reviewed: Discharge summary note from 06/18/2023, admission for respiratory failure and fluid overload. ECG per my interpretation: Indication was shortness of breath. The ECG shows a sinus rhythm with a PAC. There is a left bundle branch block. The rate is 99. There is significant baseline artifact. There is no ST elevation. QTc is 503. Continuous Cardiac Monitoring per my interpretation: An order was placed for continuous cardiac monitoring. The monitor shows a rate of 97 with normal sinus rhythm. Imaging/x-ray results per my interpretation: Chest x-ray shows potential fluid overload and some chronic lung disease. Chronic Medical/Social conditions affecting care: Chronic lung disease, pulmonary hypertension. Care/Management discussed with: Case management and the on-call hospitalist. Level of care consideration(s): After review of the information above and other included data: --I believe the patient requires escalation of care to admission Critical Care Note: I have personally spent 48 minutes of critical care time in the direct management of this patient. This includes bedside care, interpretation of diagnostic studies, and testing, discussion with consultants, patient, and family members, and other required patient management activities. This 48 minutes is in excess of all separately billable procedures. DISPOSITION: Admission Past Med/Surg History Medical History Congestive heart failure Pulmonary edema Chronic cough Diffuse myofascial pain syndrome Chronic low back pain Interstitial lung disease follows with [facility] (PRN) Diabetes mellitus type II, controlled pt denies Arrhythmia ? hx of a. fib- on Eliquis per cardiology -- hx of having a Loop Recorder in 2021 with no evidence of A.fib on the recorder at the time. no current treatment On home oxygen therapy 2-3L at rest/5L with activity Anxiety and depression History of blood transfusion Post-op 2017 Pulmonary hypertension Moderately elevated estimated RVSP (RVSP 40-50mmhg) per 01/19/22 echo IPF (idiopathic pulmonary fibrosis) PSVT (paroxysmal supraventricular tachycardia) pt denies/unaware Cerebrovascular accident (CVA) of left thalamus 06/11/2021 (post-op Right TKA) > POD#1 ischemic left thalamic stroke CVA with right sided weakness History of COVID-19 12/2020 > fully recovered Hyperglycemia Hx mild hyperglycemia under surveillance by PCP. Most recent A1C 5.6% (06/12/21) -- pt reports no continued issues at this time (08/06/2023) Shortness of breath Left bundle branch block [facility] IBS (irritable bowel syndrome) Intermittent flares - takes Amitriptyline and Protonix for GI pain control Spinal stenosis Hypothyroidism Osteopenia GERD (gastroesophageal reflux disease) Post traumatic stress disorder Bipolar disorder Surgical History History of cataract surgery S/P revision of total knee 03/2022 at [facility] (Right TKA) Status post bronchoscopy With BAL 08/01/[address] Romero at [facility] History of loop recorder has since been removed in 09/2022 at [facility] History of total knee replacement Right TKA (06/10/21): SAB at L4-5 (x1 attempt) + PNB at [facility] History of surgery Right Quadriceps Repair (06/14/21): LMA#4 at [facility]. No issues noted per post-op anesthesia progress note. History of anesthesia reaction "Slow to wake" x1 episode after 3 hour surgery in 2017- she states she became violent and upset, hallucinated while waking up. Began to calm down once she heard her daughter's voice. History of hernia surgery History of colonoscopy History of arthroscopy R/L knee History of cholecystectomy Status post gastric banding surgery + removal History of hysterectomy Family History Family/Other No problems noted. Mother Colon cancer Dementia Father , at age 79 from mesothelioma. Mesothelioma Sister No problems noted. Sister No problems noted. Son No problems noted. Daughter No problems noted. Other Family history of diabetes mellitus in father Denies family history of Ovarian cancer Prostate cancer Myocardial infarction Breast cancer Social History Smoking Status: Former smoker Tobacco Type: Cigarettes packs per day: 1; Second Hand Exposure: No; Do You Dip or Chew Tobacco: No; Hx Alcohol Use: Yes Alcohol type: wine Hx Substance Use: No Preferred Language: Comoran Communication Ability: Effective Visual Impairment: No Limitations Slate Picker Required: No Beliefs That Will Affect Care: None marital status: Single Current Living Situation: Alone Current Living Situation Comment: IN 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 current occupational status: retired Feels Safe at Home: Hesitant to Answer Childhood Exposure to Second-Hand Smoke: Yes Dental Care, Regularly: Yes Physical Activity Frequency: Daily Seatbelt Use: always Sunscreen Use: No Assistive Devices: Glasses, Oxygen - Continuous and Walker Allergies Allergies Allergy/AdvReac Type Severity Reaction Status Date / Time latex Allergy Intermediate Rash, hand Verified 08/29/23 18:35 swelling Sulfa (Sulfonamide Allergy Intermediate Rash Verified 08/29/23 18:35 Antibiotics) Penicillins Allergy Unknown Unknown Verified 08/29/23 18:35 reaction (as teenager) morphine AdvReac Intermediate Anxiety Verified 08/29/23 18:35 Home Meds Home Medications Medication Instructions Recorded Confirmed buspirone 10 mg tablet 20 mg PO .DAILY @ 1000 03/02/23 08/29/23 levothyroxine 137 mcg tablet 137 mcg PO QAM 03/02/23 08/29/23 acetaminophen 325 mg tablet 650 mg PO QID PRN Pain 06/14/23 08/29/23 (Tylenol) lamotrigine 150 mg tablet 150 mg PO HS 06/14/23 08/29/23 cyanocobalamin (vitamin B-12) 1,000 mcg PO QAM 08/06/23 08/29/23 1,000 mcg capsule gabapentin 100 mg capsule See Rx Instructions .Route .COMPLEX 08/06/23 08/29/23 mycophenolate mofetil 250 mg 500 mg PO BID Lupus 08/06/23 08/29/23 capsule (CellCept) topiramate 100 mg tablet See Rx Instructions .Route .COMPLEX 08/06/23 08/29/23 bromfenac 0.07 % eye drops 1 drp OPL DAILY 08/29/23 08/29/23 (Prolensa) bromfenac 0.07 % eye drops 1 drp OPR DAILY 08/29/23 08/29/23 (Prolensa) moxifloxacin 0.5 % eye drops 1 drp OPR TID 08/29/23 08/29/23 prednisolone acetate 1 % eye 1 drp OPL DIRECTED 08/29/23 08/29/23 drops,suspension prednisolone acetate 1 % eye 1 drp OPR DIRECTED 08/29/23 08/29/23 drops,suspension prednisone 10 mg tablet 10 mg PO .DAILY @ 1000 08/29/23 08/29/23 Previous Rx's Medication Instructions Recorded amitriptyline 25 mg tablet 25 mg PO HS #90 tabs 09/26/21 tramadol 50 mg tablet 50 mg PO Q6H PRN pain #20 tabs 01/12/23 pantoprazole 40 mg tablet,delayed 40 mg PO BID #30 tabs 08/16/23 release sildenafil (pulm.hypertension) 20 20 mg PO TID #90 tabs 08/16/23 mg tablet (Revatio) albuterol sulfate 90 mcg/actuation 2 inh inhalation QID PRN shortness 08/24/23 aerosol inhaler of breath or wheezing #8.5 grams Results & Data (ED) Vital Signs Vital Signs - 24 hr 08/29/23 15:47 08/29/23 18:09 08/29/23 18:10 Temperature 36.8 C Temperature Source Temporal Artery Scan Pulse Rate 100 H 96 H Pulse Rate [Right Finger] Respiratory Rate 18 Respiratory Effort / Characteristics Respiratory Depth Blood Pressure 140/85 Blood Pressure [Right Arm] Blood Pressure Mean 103 Blood Pressure Mean [Right Arm] Pulse Oximetry 95 99 Oxygen Delivery Method Nasal Cannula Nasal Cannula Oxygen Flow Rate 4 5 Sepsis Recent Fever Within 48 Hours No Sepsis New/Unexplained Change in Mental Status No Sepsis Action Taken by Nursing No Action Required 08/29/23 18:10 08/29/23 18:32 08/29/23 18:56 Temperature Temperature Source Pulse Rate 100 H Pulse Rate [Right Finger] 97 H 85 Respiratory Rate 22 22 Respiratory Effort / Characteristics Spontaneous Spontaneous Respiratory Depth Normal Normal Blood Pressure 164/104 H Blood Pressure [Right Arm] 169/134 H 130/93 Blood Pressure Mean Blood Pressure Mean [Right Arm] 145 105 Pulse Oximetry 99 96 Oxygen Delivery Method Nasal Cannula Nasal Cannula Oxygen Flow Rate 5 5 Sepsis Recent Fever Within 48 Hours Sepsis New/Unexplained Change in Mental Status Sepsis Action Taken by Nursing 08/29/23 18:56 08/29/23 19:02 08/29/23 19:30 Temperature Temperature Source Pulse Rate 84 86 87 Pulse Rate [Right Finger] Respiratory Rate 17 20 Respiratory Effort / Characteristics Respiratory Depth Blood Pressure 130/93 124/51 L 127/87 Blood Pressure [Right Arm] Blood Pressure Mean 75 100 Blood Pressure Mean [Right Arm] Pulse Oximetry 97 Oxygen Delivery Method Oxygen Flow Rate Sepsis Recent Fever Within 48 Hours Sepsis New/Unexplained Change in Mental Status Sepsis Action Taken by Nursing 08/29/23 20:00 08/29/23 20:31 Temperature Temperature Source Pulse Rate 92 H 92 H Pulse Rate [Right Finger] Respiratory Rate 20 28 H Respiratory Effort / Characteristics Respiratory Depth Blood Pressure 143/107 H 138/110 H Blood Pressure [Right Arm] Blood Pressure Mean 119 119 Blood Pressure Mean [Right Arm] Pulse Oximetry Oxygen Delivery Method Oxygen Flow Rate Sepsis Recent Fever Within 48 Hours Sepsis New/Unexplained Change in Mental Status Sepsis Action Taken by [facility] Medications Current Medication List: was personally reviewed by me Laboratory Data Attestation: I reviewed the patient's lab results. 08/29/23 16:48 08/29/23 16:48 Lab Results 08/29/23 08/29/23 Range/Units 16:48 19:11 WBC 11.44 H (4.8-10.8) K/ul RBC 4.97 (4.20-5.40) M/uL Hgb 12.9 (12.0-16.0) g/dl Hct 41.2 (37.0-47.0) % MCV 82.9 (80.0-100.0) fL MCH 26.0 (25.0-34.0) pg MCHC 31.3 L (32.0-36.0) g/dL RDW Std Deviation 49.2 H (36.4-46.3) fL RDW Coeff of Ese 16.4 H (11.5-14.5) % Plt Count 297 (130-400) K/uL MPV 11.0 (9.4-12.4) fL Immature Gran % (Auto) 0.7 % Neut % (Auto) 67.7 % Lymph % (Auto) 16.9 % [place] % (Auto) 9.4 % Eos % (Auto) 4.5 % Baso % (Auto) 0.8 % Neut # (Auto) 7.75 H (1.40-6.50) K/uL Lymph # (Auto) 1.93 (1.20-3.40) K/uL [place] # (Auto) 1.07 H (0.11-0.59) K/uL Eos # (Auto) 0.52 H (0.00-0.50) K/uL Baso # (Auto) 0.09 (0.00-0.20) K/uL Immature Gran # (Auto) 0.08 (0.01-0.20) K/uL ESR 48 H (0-30) mm/hr PT 11.1 (9.0-12.0) Seconds INR 1.0 (0.9-1.1) APTT 26.8 (21.0-31.0) Seconds PTT Ratio 1.0 Sodium 138 (136-145) mmol/L Potassium 3.6 (3.5-5.1) mmol/L Chloride 105 (98-107) mmol/L Carbon Dioxide 24 (21-32) mmol/L Anion Gap 9 (3-11) BUN 11 (6-23) mg/dl Creatinine 1.23 H (0.6-1.2) mg/dl Est Cr Clr Drug Dosing Not Reportable Est GFR ( Amer) 50.0 ml/min Est GFR (Non-Af Amer) 43.2 ml/min BUN/Creatinine Ratio 8.9 L (10-20) Glucose 99 (70-99(Fasting)) mg/dl Calcium 9.7 (8.6-10.3) mg/dl Magnesium 2.0 (1.7-2.4) mg/dl Total Bilirubin 0.5 (0.2-1.0) mg/dl AST 15 (13-39) U/L ALT 11 (7-52) U/L Alkaline Phosphatase 92 (34-104) U/L Troponin I High Sens 166.6 H* 195.5 H* (0-14) pg/ml C-Reactive Protein 2.50 H (0-0.5) mg/dl B-Natriuretic Peptide 509 H (0-100) pg/ml Total Protein 7.0 (6.0-8.3) gm/dl Albumin 4.0 (3.4-5.0) gm/dl Globulin 3.0 (2.5-4.0) gm/dl Albumin/Globulin Ratio 1.3 (0.9-2) Administered Medications Discontinued Medications Albuterol (Albut/Ipratrop 3mg/0.5mg Neb 3 Ml Vial) 3 ml NEB NOW STA; Protocol Stop: 08/29/23 18:15 Last Admin: 08/29/23 18:29 Dose: 3 ml Documented By: ARNALDO Bumetanide 1 mg/ Syringe 4 mls @ 4 mls/min IV NOW STA Stop: 08/29/23 18:15 Last Admin: 08/29/23 19:29 Dose: 4 mls/min Documented By: EUGENIA Labetalol HCl (Labetalol Hcl Iv 5 Mg/Ml 20ml) 10 mg IV NOW STA Stop: 08/29/23 18:17 Last Admin: 08/29/23 18:32 Dose: 10 mg Documented By: ARNALDO Co-signed By: JANEL Imaging Data Radiologist's Impression: Chest X-Ray 08/29/23 15:50 XR chest 1V not portable HISTORY: 73 years-old Female Chest pain, nonspecific acute chest pain with wheezing COMPARISON: 06/14/2023 TECHNIQUE: AP view of the chest FINDINGS: Cardiac silhouette is enlarged. Chronic interstitial lung disease. No pneumothorax, pleural effusion or overt pulmonary edema. Degenerative changes of the shoulders and spine. IMPRESSION: 1. No acute process. 2. Cardiomegaly with chronic interstitial lung disease. ACT 112: Negative or not required by law. The above report was generated using voice recognition software. It may contain grammatical, syntax or spelling errors. Electronically signed by: Osvaldo Malone M.D. 08/29/2023 4:29 PM Discharge Plan Visit Data Chief Complaint: Respiratory Problems Stated Complaint: SOB, LUNG DISEASE ED Provider: Jose Maria Grossman Discharge Problem: SOB (shortness of breath), Elevated troponin, Fluid overload, Pedal edema, Elevated brain natriuretic peptide (BNP) level, Leukocytosis, Hypertension Patient Disposition: Admitted As Inpatient Condition: Fair Discharge Instructions Interventions: ED Discharge Assessment Last Done: 08/29/23 22:35 Discharge Problem: Fluid overload Qualifiers: Hypervolemia type: unspecified Qualified Code(s): E87.70 - Fluid overload, unspecified Leukocytosis Qualifiers: Leukocytosis type: unspecified Qualified Code(s): D72.829 - Elevated white blood cell count, unspecified Hypertension Qualifiers: Hypertension type: unspecified Qualified Code(s): I10 - Essential (primary) hypertension
[2023-08-29 19:57] LABS: C Reactive Protein 2.5 mg/dl (0-0.5)
[2023-08-29 20:11] LABS: Troponin I High Sensitivity 195.5 pg/ml (0-14)
--- NOTE | 2023-08-29 20:18 | History & Physical Report ---
Date of Service August 29, 2023 Assessment & Plan (1) Elevated troponin: (2) Secondary pulmonary hypertension: (3) Acute and chronic respiratory failure: (4) IPF (idiopathic pulmonary fibrosis): (5) Bipolar disorder: (6) IBS (irritable bowel syndrome): (7) Hypothyroidism: (8) GERD (gastroesophageal reflux disease): (9) Peripheral neuropathy: (10) Chronic kidney disease, stage 3a: (11) Acute exacerbation of congestive heart failure: Plan Pt is a 73 yo female with a past medical history of interstitial lung disease/idiopathic pulmonary fibrosis on 3L O2 at home, HFrEF, GERD, hypothyroidism who presents to the hospital on 08/29/23 for SOB and productive cough refractory to z-pack. Acute on chronic resp failure - pt requiring 4-5L O2, baseline is 3L - suspect acute exacerbation of idiopathic pulm fibrosis vs acute infection vs CHF exacerbation, likely multifactorial - biofire pending, WBC count 11 but pt on 10mg prednisone daily, bnp 509, sputum culture pending - continue albuterol - pulmonology consulted - will start 40 mg prednisone daily - started levaquin q24h - CRP elevated, procal pending, MRSA swab pending Acute HFrEF exacerbation - CXR showed cardiomegaly only - last echo 07/07 EF 35-40%, not on a diuretic outpatient - pt given 1 mg bumex in ED, will start 40 mg lasix po daily - fluid restrict 1.5L a day and monitor I+Os - cardiology consulted - given worsening cardiomyopathy on serial echos Elevated troponin - on admission 166, 195 - suspect due to hypoxia/increasing oxygen requirements, EKG changes appear stable/chronic - repeat pending CKD, 3a - GFR on admission 43, - will diurese with caution - daily CMP Hypothyroidism - continue home levothyroxine Peripheral neuropathy - continue home gabapentin - continue home topamax Pulm HTN, secondary - continue home sildenafil GERD - continue home pantoprazole IBS - continue home amitriptyline Bipolar disorder - continue home lamotrigine - continue home buspar VTE proph: lovenox 40 mg qam Diet: Regular Dispo: Medsurg + tele History of Present Illness Chief Complaint: Shortness of breath Primary Care Provider: Ted Singh MD Pt is a 73 yo female with a past medical history of interstitial lung disease/idiopathic pulmonary fibrosis on 3L O2 at home, HFrEF, GERD, hypothyroidism who presents to the hospital on 08/29/23 for SOB and productive cough refractory to z-pack. Pt states that last week she started to feel more SOB requiring her to eventually increase her home oxygen from 3L to 4L and she had a productive cough with green sputum, sinus congestion, and rhinorrhea. She states she talked to her anthropologist, who prescribed her a z-pack that she finished yesterday and she states she has had no improvement on the therapy. She denies chest pain. She is feeling better in terms of her SOB now after getting a neb treatment and a dose of bumex in the ED. She states that she does not take a diuretic for her heart failure and manages it with only a low sodium diet. She states that she takes her weights daily and at home she has been 212 lbs with no changes over the past few weeks, and she states that today while in the ED she noticed her legs were more swollen than usual, which she did not notice at home. She lives at home alone and uses a wheelchair when possible, trying to get a power scooter, limited primarily by desaturation when she walks around. Allergies Allergy/AdvReac Type Severity Reaction Status Date / Time latex Allergy Intermediate Rash, hand Verified 08/29/23 18:35 swelling Sulfa (Sulfonamide Allergy Intermediate Rash Verified 08/29/23 18:35 Antibiotics) Penicillins Allergy Unknown Unknown Verified 08/29/23 18:35 reaction (as teenager) morphine AdvReac Intermediate Anxiety Verified 08/29/23 18:35 Home Medications Medication Instructions Recorded Confirmed Type amitriptyline 25 mg tablet 25 mg PO HS #90 tabs 09/26/21 08/29/23 Rx tramadol 50 mg tablet 50 mg PO Q6H PRN pain #20 tabs 01/12/23 08/29/23 Rx buspirone 10 mg tablet 20 mg PO .DAILY @ 1000 03/02/23 08/29/23 History levothyroxine 137 mcg tablet 137 mcg PO QAM 03/02/23 08/29/23 History acetaminophen 325 mg tablet 650 mg PO QID PRN Pain 06/14/23 08/29/23 History (Tylenol) lamotrigine 150 mg tablet 150 mg PO HS 06/14/23 08/29/23 History cyanocobalamin (vitamin B-12) 1,000 mcg PO QAM 08/06/23 08/29/23 History 1,000 mcg capsule gabapentin 100 mg capsule See Rx Instructions .Route .COMPLEX 08/06/23 08/29/23 History mycophenolate mofetil 250 mg 500 mg PO BID Lupus 08/06/23 08/29/23 History capsule (CellCept) topiramate 100 mg tablet See Rx Instructions .Route .COMPLEX 08/06/23 08/29/23 History pantoprazole 40 mg tablet,delayed 40 mg PO BID #30 tabs 08/16/23 08/29/23 Rx release sildenafil (pulm.hypertension) 20 20 mg PO TID #90 tabs 08/16/23 08/29/23 Rx mg tablet (Revatio) albuterol sulfate 90 mcg/actuation 2 inh inhalation QID PRN shortness 08/24/23 08/29/23 Rx aerosol inhaler of breath or wheezing #8.5 grams bromfenac 0.07 % eye drops 1 drp OPL DAILY 08/29/23 08/29/23 History (Prolensa) bromfenac 0.07 % eye drops 1 drp OPR DAILY 08/29/23 08/29/23 History (Prolensa) moxifloxacin 0.5 % eye drops 1 drp OPR TID 08/29/23 08/29/23 History prednisolone acetate 1 % eye 1 drp OPL DIRECTED 08/29/23 08/29/23 History drops,suspension prednisolone acetate 1 % eye 1 drp OPR DIRECTED 08/29/23 08/29/23 History drops,suspension prednisone 10 mg tablet 10 mg PO .DAILY @ 1000 08/29/23 08/29/23 History Past Med/Surg History Medical History Congestive heart failure Pulmonary edema Chronic cough Diffuse myofascial pain syndrome Chronic low back pain Interstitial lung disease follows with [facility] (PRN) Diabetes mellitus type II, controlled pt denies Arrhythmia ? hx of a. fib- on Eliquis per cardiology -- hx of having a Loop Recorder in 2021 with no evidence of A.fib on the recorder at the time. no current treatment On home oxygen therapy 2-3L at rest/5L with activity Anxiety and depression History of blood transfusion Post-op 2017 Pulmonary hypertension Moderately elevated estimated RVSP (RVSP 40-50mmhg) per 01/19/22 echo IPF (idiopathic pulmonary fibrosis) PSVT (paroxysmal supraventricular tachycardia) pt denies/unaware Cerebrovascular accident (CVA) of left thalamus 06/11/2021 (post-op Right TKA) > POD#1 ischemic left thalamic stroke CVA with right sided weakness History of COVID-19 12/2020 > fully recovered Hyperglycemia Hx mild hyperglycemia under surveillance by PCP. Most recent A1C 5.6% (06/12/21) -- pt reports no continued issues at this time (08/06/2023) Shortness of breath Left bundle branch block [facility] IBS (irritable bowel syndrome) Intermittent flares - takes Amitriptyline and Protonix for GI pain control Spinal stenosis Hypothyroidism Osteopenia GERD (gastroesophageal reflux disease) Post traumatic stress disorder Bipolar disorder Surgical History History of cataract surgery S/P revision of total knee 03/2022 at [facility] (Right TKA) Status post bronchoscopy With BAL 08/01/[address] Romero at [facility] History of loop recorder has since been removed in 09/2022 at [facility] History of total knee replacement Right TKA (06/10/21): SAB at L4-5 (x1 attempt) + PNB at [facility] History of surgery Right Quadriceps Repair (06/14/21): LMA#4 at [facility]. No issues noted per post-op anesthesia progress note. History of anesthesia reaction "Slow to wake" x1 episode after 3 hour surgery in 2017- she states she became violent and upset, hallucinated while waking up. Began to calm down once she heard her daughter's voice. History of hernia surgery History of colonoscopy History of arthroscopy R/L knee History of cholecystectomy Status post gastric banding surgery + removal History of hysterectomy Family History Family/Other No problems noted. Mother Colon cancer Dementia Father , at age 79 from mesothelioma. Mesothelioma Sister No problems noted. Sister No problems noted. Son No problems noted. Daughter No problems noted. 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 Required: No Beliefs That Will Affect Care: None marital status: Single Current Living Situation: Alone Current Living Situation Comment: "[facility] building, alone" current occupational status: retired Other Information That Helps Us Care for You: No Feels Safe at Home: Yes Safety Concerns: Feels Safe At This Time Childhood Exposure to Second-Hand Smoke: Yes Dental Care, Regularly: Yes Physical Activity Frequency: Daily Seatbelt Use: always Sunscreen Use: No Assistive Devices: Glasses, Oxygen - Continuous, Walker and Wheelchair Review of Systems Review of Systems: Constitutional: denies fever, chills, Cardio: denies chest pain, GI: no nausea or vomiting, no diarrhea Rest as per HPI. Physical Exam Physical Exam: General: Alert and oriented, no acute distress, comfortable at this time Cardio: Regular rate and rhythm, no murmur, Resp: Faint crackles in right lower lobe, no wheezing GI: Soft and nontender, nondistended, bowel sounds active Skin: Warm, pink, dry, Psych: Mood-affect congruence. Results & Data Results & Data Vital Signs (Past 12 Hours) Vital Signs Temp Pulse Pulse Resp BP BP Pulse Ox 08/29/23 18:56 84 130/93 08/29/23 18:56 85 22 130/93 96 08/29/23 18:32 100 H 164/104 H 08/29/23 18:10 97 H 22 169/134 H 99 08/29/23 18:10 99 08/29/23 18:09 96 H 08/29/23 15:47 36.8 C 100 H 18 140/85 95 O2 Del Method O2 Flow Rate 08/29/23 18:56 08/29/23 18:56 Nasal Cannula 5 08/29/23 18:32 08/29/23 18:10 Nasal Cannula 5 08/29/23 18:10 Nasal Cannula 5 08/29/23 18:09 08/29/23 15:47 Nasal Cannula 4 Supervising Physician Co-Signing Physician Notes I personally saw and examined the patient. I independently reviewed the labs, EKG, imaging, problem list, medication list, past medical history and family history. I verified all mcclure points and agree with resident physician Dr Melissa Thompson, with the following exceptions and/or additions: 73 year old female presents to the ER with acute on chronic shortness of breath. For the last week she has noticed increased sputum production which has been green with spots of occasional blood with increased nasal congestion. Her sinuses always feel full but currently feel at baseline. No fever or chills. No increased weight or leg swelling. O/E A&Ox3, HS RRR, no murmurs, no JVD, accessory muscle use, bibasal fine crackles, no wheezing, Abdo SNT, no CVA tenderness, 1+ b/l pedal edema equal b/l A/P Acute exacerbation of pulmonary fibrosis - cover for infectious etiology given increased sputum production with increasing O2 requirements with Levaquin (no response to azithromycin as outpatient. Start prednisone. Consult pulmonology Acute on chronic HFrEF - evidenced by worsening cardiomyopathy with increasing leg swelling and BNP. Lasix 40mg IV daily, aim slightly net negative balance. Consult cardiology as her new cardiomyopathy has not previously been investigated. Strict I&Os. Low Na, fluid restricted diet. Elevated troponin - suspect demand-ischemia. Do not suspect ACS given lack of chest pain, acute EKG findings and troponin appears chronically elevated. Trend troponin overnight. Resident Activity Tracking Resident Involvement: Resident Care Provided Care Provided: Adult Hospital Medicine
[2023-08-29] MEDS ORDERED: ALBUTEROL HFA 8 GM INHALER INH PRN (22:36)
[2023-08-29] MEDS ORDERED: ACETAMINOPHEN 325 MG TAB PO PRN (22:36)
[2023-08-29] MEDS ORDERED: ONDANSETRON INJ 2 MG/ML 2 ML VIAL IV PRN (22:36)
[2023-08-29] MEDS ORDERED: POLYETHYLENE (MIRALAX) 17 GM PACK PO PRN (22:36)
--- NOTE | 2023-08-29 22:59 | Billing Data ---
Date of Service August 29, 2023 Coding Level of Care Code 50760 INT INP/OBS CARE
[2023-08-29] MEDS ORDERED: levoFLOXacin/D5W 750 MG/150 ML BAG IV SCH (23:00)
[2023-08-29 23:10] LABS: Adenovirus PCR Not Detected (NotDetected); Bordetella parapertussis PCR Not Detected (NotDetected); Bordetella pertussis PCR Not Detected (NotDetected); Chlamydia pneumoniae PCR Not Detected (NotDetected); Coronavirus 229E PCR Not Detected (NotDetected); Coronavirus CoV-2 (COVID19)PCR Not Detected (NotDetected); Coronavirus HKU1 PCR Not Detected (NotDetected); Coronavirus NL63 PCR Not Detected (NotDetected); Coronavirus OC43PCR Not Detected (NotDetected); Human Metapneumovirus PCR Not Detected (NotDetected); Influenza A PCR Not Detected (NotDetected); Influenza B PCR Not Detected (NotDetected); Mycoplasma pneumoniae PCR Not Detected (NotDetected); Parainfluenza Virus 1 PCR Not Detected (NotDetected); Parainfluenza Virus 2 PCR Not Detected (NotDetected); Parainfluenza Virus 3 PCR Not Detected (NotDetected); Parainfluenza Virus 4 PCR Not Detected (NotDetected); Respiratory Syncytial VirusPCR Not Detected (NotDetected); Rhinovirus/Enterovirus PCR Not Detected (NotDetected)
[2023-08-29] MEDS: lamoTRIgine 100 MG TAB PO SCH (23:39)
[2023-08-29] MEDS: SILDENAFIL CITRATE 20 MG TABLET PO SCH (23:40)
[2023-08-29] MEDS: AMITRIPTYLINE HCL 25 MG TAB PO SCH (23:41)
[2023-08-29] MEDS: PANTOprazole 40 MG TAB PO SCH (23:41)
[2023-08-30 05:17] LABS: Albumin Globulin Ratio 1.2 (0.9-2); Albumin Level 3.5 gm/dl (3.4-5.0); BUN Creatinine Ratio 11.2 (10-20); Bilirubin,Total 0.5 mg/dl (0.2-1.0); Calcium 9.2 mg/dl (8.6-10.3); Creatinine Clr Calc Pharmacy 47.8 ml/min; Est GFR (African American) 53.7 ml/min; Est GFR (Non-African American) 46.3 ml/min; Globulin 2.9 gm/dl (2.5-4.0); Potassium 3.3 mmol/L (3.5-5.1); Total Protein 6.4 gm/dl (6.0-8.3)
[2023-08-30 05:28] LABS: Basophils # (auto) 0.07 K/uL (0.00-0.20); Basophils % (auto) 0.7 %; Eosinophils # (auto) 0.51 K/uL (0.00-0.50); Eosinophils % (auto) 5.2 %; Hemoglobin 12.4 g/dl (12.0-16.0); Immature Granulocytes # (auto) 0.06 K/uL (0.01-0.20); Immature Granulocytes % (auto) 0.6 %; Lymphocytes # (auto) 1.79 K/uL (1.20-3.40); Lymphocytes % (auto) 18.3 %; Mean Corpuscular Hemoglobin 26.1 pg (25.0-34.0); Mean Platelet Volume 11.1 fL (9.4-12.4); Monocytes # (auto) 0.98 K/uL (0.11-0.59); Neutrophils # (auto) 6.36 K/uL (1.40-6.50); Neutrophils % (auto) 65.2 %; Platelet Count 231 K/uL (130-400); RDW Coefficient of Variation 16.2 % (11.5-14.5); RDW Standard Deviation 49.5 fL (36.4-46.3); Red Blood Count 4.76 M/uL (4.20-5.40); White Blood Count 9.77 K/ul (4.8-10.8)
[2023-08-30 05:31] LABS: Thyroid Stimulating Hormone 2.408 uIu/ml (0.300-4.500)
[2023-08-30] MEDS: LEVOTHYROXINE SODIUM 137 MCG TABLET PO SCH (06:30)
--- NOTE | 2023-08-30 07:28 | Hospitalist Progress Note ---
Date of Service August 30, 2023 Assessment & Plan (1) Elevated troponin: (2) Secondary pulmonary hypertension: (3) Acute and chronic respiratory failure: (4) IPF (idiopathic pulmonary fibrosis): (5) Bipolar disorder: (6) IBS (irritable bowel syndrome): (7) Hypothyroidism: (8) GERD (gastroesophageal reflux disease): (9) Peripheral neuropathy: (10) Chronic kidney disease, stage 3a: (11) Acute exacerbation of congestive heart failure: Plan Pt is a 73 yo female with a past medical history of interstitial lung disease/idiopathic pulmonary fibrosis on 3L O2 at home, HFrEF, GERD, hypothyroidism who presents to the hospital on 08/29/23 for SOB and productive cough refractory to z-pack. Acute on chronic hypoxemic respiratory failure Interstitial lung disease/ idiopathic pulmonary fibrosis - pt requiring 4-6L O2, baseline is 4L - biofire negative, No leukocytosis, Procalcitonin neg, MRSA neg - bnp 509, CRP elevated - sputum culture pending - continue albuterol - Levaquin q24h -Continue 40 mg prednisone daily - pulmonology consulted Cardiomyopathy HFrEF - CXR showed cardiomegaly only - last echo 07/07 EF 35-40%, not on a diuretic outpatient - Received 1 mg bumex in ED - 40 mg lasix IV daily - fluid restrict 1.5L a day and monitor I+Os - cardiology consulted -low likelihood of cardiomyopathy exacerbation at this time -continue sliding scale diuretic regimen based on daily weights -mildly hypervolemic Elevated troponin - on admission 166, 195, 187.2 - suspect due to hypoxia/increasing oxygen requirements, EKG changes appear stable/chronic Hypokalemia K 3.3 40 meq replaced today follow BMP am CKD, 3a - GFR on admission 43, -Cr: 1.16 - will diurese with caution - daily CMP Hypothyroidism - continue home levothyroxine Peripheral neuropathy - continue home gabapentin - continue home topamax Pulm HTN, secondary - continue home sildenafil GERD - continue home pantoprazole IBS - continue home amitriptyline Bipolar disorder - continue home lamotrigine - continue home buspar VTE proph: lovenox 40 mg qam Diet: Regular Dispo: Medsurg + tele Admission and Anticipated Discharge Date Admission Date: August 29, 2023 Supervising Physician Co-Signing Physician Notes Resident Physician Supervision Note: I independently interviewed and examined the patient and verified the mcclure history and physical, reviewed labs and image studies and agree with resident findings and care plan. Subjective Pt is a 73 yo female with a past medical history of interstitial lung disease/idiopathic pulmonary fibrosis on 3L O2 at home, HFrEF, GERD, hypothyroidism who presents to the hospital on 08/29/23 for SOB and productive cough refractory to z-pack. She states that last week she started to feel mores SOB requiring her to increase her home O2, additionally she had more productive cough with green sputum, sinus congestion and rhinorrhea. Pulmonary prescribe her a z -pack that she finished (08/18) without no improvement. She denies any chest pain, fevers, chill, fatigue or any other symptoms. She lives at home alone and uses a wheelchair when possible, trying to get a power scooter, limited primarily by desaturation when she walks around. Review of Systems Review of Systems: Rest as per HPI. Physical Exam Physical Exam: General: Alert and oriented, no acute distress, comfortable at this time Cardio: Regular rate and rhythm, no murmur, Resp: Faint crackles in right lower lobe, no wheezing GI: Soft and nontender, nondistended, bowel sounds active Skin: Warm, pink, dry, Psych: Mood-affect congruence. Results & Data Results & Data Vital Signs (Past 12 Hours) Vital Signs Temp Pulse Pulse Resp BP BP Pulse Ox 08/30/23 07:16 95 H 08/30/23 03:52 08/30/23 03:40 96 H 18 98 08/30/23 03:30 96 H 19 97 08/30/23 03:20 94 H 19 95 08/30/23 03:10 88 18 98 08/30/23 03:00 94 H 19 97 08/30/23 02:50 91 H 19 97 08/30/23 02:40 91 H 18 96 08/30/23 02:30 94 H 20 98 08/30/23 02:20 93 H 18 96 08/30/23 02:10 90 19 96 08/30/23 02:00 92 H 20 96 08/30/23 01:50 95 H 19 99 08/30/23 01:40 95 H 20 98 08/30/23 01:30 94 H 20 97 08/30/23 01:20 94 H 19 99 08/30/23 01:10 96 H 21 96 08/30/23 01:00 91 H 18 99 08/30/23 00:50 91 H 19 98 08/30/23 00:40 83 21 97 08/30/23 00:30 95 H 19 99 08/30/23 00:20 94 H 23 98 08/30/23 00:10 94 H 19 100 08/30/23 00:00 93 H 24 98 08/30/23 00:00 138/90 08/30/23 00:00 94 H 08/29/23 23:57 37.2 C 93 H 18 132/87 90 08/29/23 23:50 92 H 19 97 08/29/23 23:40 92 H 25 H 98 08/29/23 23:30 89 20 100 08/29/23 23:20 93 H 24 98 08/29/23 23:10 94 H 24 98 08/29/23 23:00 97 H 20 97 08/29/23 23:00 08/29/23 22:53 17 96 08/29/23 22:40 94 H 14 08/29/23 22:30 93 H 18 08/29/23 22:20 96 H 24 08/29/23 22:10 95 H 16 08/29/23 22:00 93 H 22 97 08/29/23 21:42 91 H 26 H 140/91 95 08/29/23 20:31 92 H 28 H 138/110 H 08/29/23 20:00 92 H 20 143/107 H 08/29/23 19:30 87 20 127/87 Pulse Ox O2 Del Method O2 Del Method O2 Flow Rate 08/30/23 07:16 08/30/23 03:52 Nasal Cannula 08/30/23 03:40 08/30/23 03:30 08/30/23 03:20 08/30/23 03:10 08/30/23 03:00 08/30/23 02:50 08/30/23 02:40 08/30/23 02:30 08/30/23 02:20 08/30/23 02:10 08/30/23 02:00 08/30/23 01:50 08/30/23 01:40 08/30/23 01:30 08/30/23 01:20 08/30/23 01:10 08/30/23 01:00 08/30/23 00:50 08/30/23 00:40 08/30/23 00:30 08/30/23 00:20 08/30/23 00:10 08/30/23 00:00 08/30/23 00:00 08/30/23 00:00 08/29/23 23:57 Nasal Cannula 4 08/29/23 23:50 08/29/23 23:40 08/29/23 23:30 08/29/23 23:20 08/29/23 23:10 08/29/23 23:00 08/29/23 23:00 90 Nasal Cannula 08/29/23 22:53 08/29/23 22:40 08/29/23 22:30 08/29/23 22:20 08/29/23 22:10 08/29/23 22:00 Nasal Cannula 4 08/29/23 21:42 Nasal Cannula 5 08/29/23 20:31 08/29/23 20:00 08/29/23 19:30 Resident Activity Tracking Resident Involvement: Resident Care Provided Care Provided: Adult Hospital Medicine
[2023-08-30] MEDS ORDERED: POTASSIUM CHLORIDE CRTAB 20 MEQ TABCR PO STA (07:30)
[2023-08-30] MEDS: CYANOCOBALAMIN (B-12) 500 MCG TABLET PO SCH (08:29)
[2023-08-30] MEDS: SILDENAFIL CITRATE 20 MG TABLET PO SCH ×3 (08:29→21:08)
[2023-08-30] MEDS: PANTOprazole 40 MG TAB PO SCH ×2 (08:29→21:08)
[2023-08-30] MEDS: FUROSEMIDE 40 MG/4 ML VIAL IV SCH (08:31)
--- NOTE | 2023-08-30 08:42 | Electrocardiogram Report ---
Test Reason : Blood Pressure : / mmHG Vent. Rate : 099 BPM Atrial Rate : 099 BPM P-R Int : 148 ms QRS Dur : 128 ms QT Int : 392 ms P-R-T Axes : 075 -17 -89 degrees QTc Int : 503 ms Sinus rhythm with Premature supraventricular complexes and Fusion complexes Left bundle branch block Abnormal ECG When compared with ECG of 14-JUN-2023 18:12, Fusion complexes are now Present Premature supraventricular complexes are now Present Confirmed by Adama Gómez ([id number] on 08/30/2023 8:42:14 AM Referred By: REFERRED SELF Confirmed By:Adama Gómez
[2023-08-30] MEDS ORDERED: FUROSEMIDE 40 MG TAB PO SCH (09:00)
[2023-08-30] MEDS ORDERED: predniSONE 20 MG TAB PO SCH (09:00)
[2023-08-30] MEDS ORDERED: ENOXAPARIN INJ 40 MG/0.4 ML SYR SQ SCH (09:00)
--- NOTE | 2023-08-30 11:03 | Pulmonary Consultation ---
Date of Consultation August 30, 2023 Assessment & Plan (1) Pulmonary hypertension: (2) Interstitial lung disease: (3) Chronic hypoxemic respiratory failure: (4) Exertional dyspnea: (5) Fluid overload: Hypervolemia type: unspecified Qualified Code(s): E87.70 - Fluid overload, unspecified Plan IMPRESSION: 73-year-old female with a significant past medical history of interstitial lung disease, chronic hypoxic respiratory failure on 3 to 6 L as needed, hypertension, GERD, has not history of volume overload who presents with symptoms of progressive shortness of breath and subjective hypoxia at home. RECOMMENDATIONS: 1. Acute on chronic hypoxic respiratory failure - Chest x-ray reviewed and demonstrates a bit of volume overload. Certainly, this could represent an infectious process in the right clinical setting, however her procalcitonin is unremarkable despite a slight elevation her white blood cell count. She recently completed a course of azithromycin. Question utility of antibiotics. Patient would largely benefit from temporary increase in her prednisone dose with an extended taper. Additionally, agree with increasing her Lasix dosing to have her run on the back tender pulp drier side. Otherwise, she is on her baseline 3 to 6 L of oxygen at this point. Would recommend pulmonary toileting with flutter valve and incentive spirometry. Out of bed to chair as tolerated. Ambulate the patient when able to. 2. Interstitial lung disease - Currently on CellCept 500 mg twice daily as well as prednisone 10 mg daily. Recent pulmonary function testing showed an improvement in her FVC and DLCO still compromised. 3. Hypoxic respiratory failure - In the setting of interstitial lung disease. Worsening with unfortunate degree of volume overload as well. 4. Exertional dyspnea - Secondary to above. 5. Volume overload - Patient has presented with degrees of volume overload in the past which is contributing to her dyspnea. I am suspicious that this is largely contributing currently. Thank you for allowing us to participate in the care of this patient. Pulmonary will follow along. History of Present Illness Reason for Consultation: ILD, exertional dyspnea Requesting Physician: Dr. Allen Attending Physician: Radha Man MD History of Present Illness Patient is a 73-year-old female with a significant past medical history of collagen vascular disease ILD, chronic hypoxemic respiratory failure on 3 to 6 L nasal cannula at all times, pulmonary hypertension, GERD, and recurrent issues with volume status who presents to the hospital with worsening symptoms of productive cough and shortness of breath. The patient had been placed on a course of azithromycin recently by her primary pulmonary team secondary to productive cough. She states that the azithromycin has not seemed to help with her symptoms. She reports no fevers or chills. She reports feeling generally weak, fatigued, and with occasional headaches. She offers no complaints of chest pain or palpitations. She reports that her oxygen requirement has gone up to 4 L at baseline. She offers no new complaints for baseline otherwise. Allergies Allergy/AdvReac Type Severity Reaction Status Date / Time latex Allergy Intermediate Rash, hand Verified 08/29/23 18:35 swelling Sulfa (Sulfonamide Allergy Intermediate Rash Verified 08/29/23 18:35 Antibiotics) Penicillins Allergy Unknown Unknown Verified 08/29/23 18:35 reaction (as teenager) morphine AdvReac Intermediate Anxiety Verified 08/29/23 18:35 Home Medications Medication Instructions Recorded Confirmed Type amitriptyline 25 mg tablet 25 mg PO HS #90 tabs 09/26/21 08/29/23 Rx tramadol 50 mg tablet 50 mg PO Q6H PRN pain #20 tabs 01/12/23 08/29/23 Rx buspirone 10 mg tablet 20 mg PO .DAILY @ 1000 03/02/23 08/29/23 History levothyroxine 137 mcg tablet 137 mcg PO QAM 03/02/23 08/29/23 History acetaminophen 325 mg tablet 650 mg PO QID PRN Pain 06/14/23 08/29/23 History (Tylenol) lamotrigine 150 mg tablet 150 mg PO HS 06/14/23 08/29/23 History cyanocobalamin (vitamin B-12) 1,000 mcg PO QAM 08/06/23 08/29/23 History 1,000 mcg capsule gabapentin 100 mg capsule See Rx Instructions .Route .COMPLEX 08/06/23 08/29/23 History mycophenolate mofetil 250 mg 500 mg PO BID Lupus 08/06/23 08/29/23 History capsule (CellCept) topiramate 100 mg tablet See Rx Instructions .Route .COMPLEX 08/06/23 08/29/23 History pantoprazole 40 mg tablet,delayed 40 mg PO BID #30 tabs 08/16/23 08/29/23 Rx release sildenafil (pulm.hypertension) 20 20 mg PO TID #90 tabs 08/16/23 08/29/23 Rx mg tablet (Revatio) albuterol sulfate 90 mcg/actuation 2 inh inhalation QID PRN shortness 08/24/23 08/29/23 Rx aerosol inhaler of breath or wheezing #8.5 grams bromfenac 0.07 % eye drops 1 drp OPL DAILY 08/29/23 08/29/23 History (Prolensa) bromfenac 0.07 % eye drops 1 drp OPR DAILY 08/29/23 08/29/23 History (Prolensa) moxifloxacin 0.5 % eye drops 1 drp OPR TID 08/29/23 08/29/23 History prednisolone acetate 1 % eye 1 drp OPL DIRECTED 08/29/23 08/29/23 History drops,suspension prednisolone acetate 1 % eye 1 drp OPR DIRECTED 08/29/23 08/29/23 History drops,suspension prednisone 10 mg tablet 10 mg PO .DAILY @ 1000 08/29/23 08/29/23 History Patient History Medical History (Updated 08/30/23 @ 14:32 by Adama Gómez MD) Congestive heart failure Pulmonary edema Chronic cough Diffuse myofascial pain syndrome Chronic low back pain Interstitial lung disease follows with [facility] ([facility]) Diabetes mellitus type II, controlled pt denies Arrhythmia ? hx of a. fib- on Eliquis per cardiology -- hx of having a Loop Recorder in 2021 with no evidence of A.fib on the recorder at the time. no current treatment On home oxygen therapy 2-3L at rest/5L with activity Anxiety and depression History of blood transfusion Post-op 2016 Pulmonary hypertension Moderately elevated estimated RVSP (RVSP 40-50mmhg) per 01/19/22 echo IPF (idiopathic pulmonary fibrosis) PSVT (paroxysmal supraventricular tachycardia) pt denies/unaware Cerebrovascular accident (CVA) of left thalamus 06/11/2021 (post-op Right TKA) > POD#1 ischemic left thalamic stroke CVA with right sided weakness History of COVID-19 12/2020 > fully recovered Hyperglycemia Hx mild hyperglycemia under surveillance by PCP. Most recent A1C 5.6% (06/12/21) -- pt reports no continued issues at this time (08/06/2023) Shortness of breath Left bundle branch block Follows with [facility] cardiology IBS (irritable bowel syndrome) Intermittent flares - takes Amitriptyline and Protonix for GI pain control Spinal stenosis Hypothyroidism Osteopenia GERD (gastroesophageal reflux disease) Post traumatic stress disorder Bipolar disorder Surgical History (Updated 08/30/23 @ 14:32 by Adama Gómez MD) Status post right knee replacement (~05/2021) History of cataract surgery S/P revision of total knee 03/2022 at [facility] (Right TKA) Status post bronchoscopy With BAL 08/01/[address] Romero at [facility] History of loop recorder has since been removed in 09/2022 at [facility] History of total knee replacement Right TKA (06/10/21): SAB at L4-5 (x1 attempt) + PNB at [facility] History of surgery Right Quadriceps Repair (06/14/21): LMA#4 at [facility]. No issues noted per post-op anesthesia progress note. History of anesthesia reaction "Slow to wake" x1 episode after 3 hour surgery in 2017- she states she became violent and upset, hallucinated while waking up. Began to calm down once she heard her daughter's voice. History of hernia surgery History of colonoscopy History of arthroscopy R/L knee History of cholecystectomy Status post gastric banding surgery + removal History of hysterectomy Family History Family/Other No problems noted. Mother Colon cancer Dementia Father , at age 79 from mesothelioma. Mesothelioma Sister No problems noted. Sister No problems noted. Son No problems noted. Daughter No problems noted. Other Family history of diabetes mellitus in father Denies family history of Ovarian cancer Prostate cancer Myocardial infarction Breast cancer Social History Smoking Status: Never smoker Tobacco Type: Cigarettes packs per day: 1; Second Hand Exposure: No; Do You Dip or Chew Tobacco: No; Hx Alcohol Use: Yes Alcohol type: wine Hx Substance Use: No Preferred Language: Nigerien Communication Ability: Effective Visual Impairment: No Limitations Cougar [employer] Required: No Beliefs That Will Affect Care: None marital status: Single Current Living Situation: Alone Current Living Situation Comment: "[facility] building, alone" current occupational status: retired Feels Safe at Home: Yes Childhood Exposure to Second-Hand Smoke: Yes Dental Care, Regularly: Yes Physical Activity Frequency: Daily Seatbelt Use: always Sunscreen Use: No Assistive Devices: Glasses, Oxygen - Continuous, Walker and Wheelchair Review of Systems Review of Systems: A complete 10 point review of systems was reviewed with the patient with pertinent positives and negatives as per history of present illness. All else were negative. Physical Exam Physical Exam: VITAL SIGNS - Vital signs and nursing notes were reviewed. GENERAL - 73-year-old female appearing her stated age who is in no acute distress. Communicates well with provider and answers questions appropriately. SKIN - Without rashes or lesions. NOSE - Midline and without cyanosis. MOUTH/OROPHARYNX - Without perioral cyanosis. NECK - Neck with FROM. LUNGS - Chest wall evaluation demonstrates normal chest wall A:P diameter. Auscultation reveals decreased air entry with bibasilar rales. No wheezes appreciated. CARDIAC - RRR with S1/S2. No murmur, rubs, or gallops appreciated. ABDOMEN - Abdominal inspection demonstrates an obese abdomen. BS normoactive all four quadrants. No tenderness, palpable masses, or ascites noted. EXTREMITIES - Nail clubbing not present. No peripheral cyanosis. No pretibial edema present. +3/5 radial palpated throughout. PSYCH - A&Ox3 and cooperates fully with examiner. Pt is very pleasant and interacts well with examiner. Results & Data Results & Data Vital Signs (Past 12 Hours) Vital Signs Temp Pulse Pulse Resp BP BP Pulse Ox 08/30/23 07:16 95 H 08/30/23 03:52 08/30/23 03:40 96 H 18 98 08/30/23 03:30 96 H 19 97 08/30/23 03:20 94 H 19 95 08/30/23 03:10 88 18 98 08/30/23 03:00 94 H 19 97 08/30/23 02:50 91 H 19 97 08/30/23 02:40 91 H 18 96 08/30/23 02:30 94 H 20 98 08/30/23 02:20 93 H 18 96 08/30/23 02:10 90 19 96 08/30/23 02:00 92 H 20 96 08/30/23 01:50 95 H 19 99 08/30/23 01:40 95 H 20 98 08/30/23 01:30 94 H 20 97 08/30/23 01:20 94 H 19 99 08/30/23 01:10 96 H 21 96 08/30/23 01:00 91 H 18 99 08/30/23 00:50 91 H 19 98 08/30/23 00:40 83 21 97 08/30/23 00:30 95 H 19 99 08/30/23 00:20 94 H 23 98 08/30/23 00:10 94 H 19 100 08/30/23 00:00 93 H 24 98 08/30/23 00:00 138/90 08/30/23 00:00 94 H 08/29/23 23:57 37.2 C 93 H 18 132/87 90 08/29/23 23:50 92 H 19 97 08/29/23 23:40 92 H 25 H 98 08/29/23 23:30 89 20 100 08/29/23 23:20 93 H 24 98 08/29/23 23:10 94 H 24 98 O2 Del Method O2 Flow Rate 08/30/23 07:16 08/30/23 03:52 Nasal Cannula 08/30/23 03:40 08/30/23 03:30 08/30/23 03:20 08/30/23 03:10 08/30/23 03:00 08/30/23 02:50 08/30/23 02:40 08/30/23 02:30 08/30/23 02:20 08/30/23 02:10 08/30/23 02:00 08/30/23 01:50 08/30/23 01:40 08/30/23 01:30 08/30/23 01:20 08/30/23 01:10 08/30/23 01:00 08/30/23 00:50 08/30/23 00:40 08/30/23 00:30 08/30/23 00:20 08/30/23 00:10 08/30/23 00:00 08/30/23 00:00 08/30/23 00:00 08/29/23 23:57 Nasal Cannula 4 08/29/23 23:50 08/29/23 23:40 08/29/23 23:30 08/29/23 23:20 08/29/23 23:10 PG Care Time/CCT Total # of Minutes Spent Total Time Spent with Patient: Total time spent is greater than 50% in coordination of care (as documented) at patient's floor/unit and/or counseling patient: Coding Level of Care Code 21354 INT INP/OBS CARE MIN Diagnoses Pulmonary hypertension I27.20 Interstitial lung disease J84.9 Chronic hypoxemic respiratory failure J96.11 Exertional dyspnea R06.09 Fluid overload E87.70 Hypervolemia type: unspecified
[2023-08-30] MEDS: TOPIRAMATE 100 MG TAB PO SCH ×2 (11:16→18:15)
[2023-08-30] MEDS: GABAPENTIN 100 MG CAP PO SCH ×2 (11:16→18:15)
[2023-08-30] MEDS: predniSONE 20 MG TAB PO SCH (11:18)
[2023-08-30] MEDS: busPIRone 5 MG TAB PO SCH (11:18)
--- NOTE | 2023-08-30 14:12 | Cardiology Consultation ---
Date of Consultation August 30, 2023 Assessment & Plan (1) Cardiomyopathy: (2) Elevated troponin: (3) Heart failure with reduced ejection fraction: (4) Interstitial lung disease: Plan 73-year-old woman with severe/advanced interstitial lung disease on chronic oxygen admitted with increased cough and change in sputum, question role of volume component raised given her recently diagnosed cardiomyopathy (EF 35-40%). Review of the records suggest systolic function has not been consistently normal, a 2019 Lexiscan showed EF 45 to 50% for example. Also, chronic left bundle branch block often reduces left ventricular systolic function. Although her systolic function may have declined recently, she does not have focal wall motion abnormalities to suggest this is a result of an acute event. Also, the June 2023 echocardiogram was obtained in the context of acute hyp oxic respiratory failure. Currently, she does appear mildly hypervolemic, but is not demonstrating overt heart failure. She does not note recent weight gain, her weight is at the low end of her recent range, chest x-ray without pulmonary edema or effusions and neck exam with only mild jugular vein elevation. Do agree with gentle volume unloading, since even minor excess volume could exacerbate her pulmonary issues given very limited pulmonary reserve at baseline (spirometry showed severe restrictive disease with severely reduced diffusion capacity). Once optimal volume status achieved, would favor sliding scale diuretic regimen based on daily weights (which she already performs), for example furosemide 40 mg orally for weight gain of 2 pounds in 1 day or 5 pounds in 1 week. Given low likelihood that cardiomyopathy is playing a major role in her current pulmonary exacerbation, other than diuresis it is nonurgent to initiate guideline directed medical therapy. Could consider Entresto, spironolactone, and metoprolol succinate, all of which could be initiated as an outpatient on follow-up. Prognosis much more likely to be impacted by her underlying pulmonary disease. If she does show evidence of recurrent congestive heart failure after gentle diuresis, would check repeat echocardiogram and initiate guideline directed medical therapy more urgently. Also, although prior Lexiscan was negative, could consider repeating ischemic work-up at some point if her systolic function remains depressed. Will follow along to reassess volume status and offer further recommendations. History of Present Illness Reason for Consultation: New cardiomyopathy on Jun echo Requesting Physician: Radha Man MD Attending Physician: Radha Man MD History of Present Illness 73-year-old woman with history of diabetes mellitus, severe pulmonary fibrosis (home oxygen) with chronic hypoxic respiratory failure, moderate pulmonary hypertension with high normal wedge pressure on right heart cath January 2023, HFrEF, chronic left bundle branch block, PSVT, remote CVA, who was admitted with worsening productive cough and change in sputum as well as gradually increasing dyspnea. She has chronic marked limitations to activity due to her underlying pulmonary disease and some degree of orthopnea. Over the past week, she notes no weight change but did have a subtle increase in orthopnea and worsening in dyspnea on exertion, however her main complaint is a change in sputum color from white to green. She had not noted leg edema until it was pointed out in the ER. She denies chest pain at any time and notes no subjective palpitations, lightheadedness, presyncope, or syncope. She was on diuretic 5 days a week at one point but this was stopped by her PCP some time ago. She had no somatic complaints at rest at the time of my evaluation this morning. Allergies Allergy/AdvReac Type Severity Reaction Status Date / Time latex Allergy Intermediate Rash, hand Verified 08/29/23 18:35 swelling Sulfa (Sulfonamide Allergy Intermediate Rash Verified 08/29/23 18:35 Antibiotics) Penicillins Allergy Unknown Unknown Verified 08/29/23 18:35 reaction (as teenager) morphine AdvReac Intermediate Anxiety Verified 08/29/23 18:35 Home Medications Medication Instructions Recorded Confirmed Type amitriptyline 25 mg tablet 25 mg PO HS #90 tabs 09/26/21 08/29/23 Rx tramadol 50 mg tablet 50 mg PO Q6H PRN pain #20 tabs 01/12/23 08/29/23 Rx buspirone 10 mg tablet 20 mg PO .DAILY @ 1000 03/02/23 08/29/23 History levothyroxine 137 mcg tablet 137 mcg PO QAM 03/02/23 08/29/23 History acetaminophen 325 mg tablet 650 mg PO QID PRN Pain 06/14/23 08/29/23 History (Tylenol) lamotrigine 150 mg tablet 150 mg PO HS 06/14/23 08/29/23 History cyanocobalamin (vitamin B-12) 1,000 mcg PO QAM 08/06/23 08/29/23 History 1,000 mcg capsule gabapentin 100 mg capsule See Rx Instructions .Route .COMPLEX 08/06/23 08/29/23 History mycophenolate mofetil 250 mg 500 mg PO BID Lupus 08/06/23 08/29/23 History capsule (CellCept) topiramate 100 mg tablet See Rx Instructions .Route .COMPLEX 08/06/23 08/29/23 History pantoprazole 40 mg tablet,delayed 40 mg PO BID #30 tabs 08/16/23 08/29/23 Rx release sildenafil (pulm.hypertension) 20 20 mg PO TID #90 tabs 08/16/23 08/29/23 Rx mg tablet (Revatio) albuterol sulfate 90 mcg/actuation 2 inh inhalation QID PRN shortness 08/24/23 08/29/23 Rx aerosol inhaler of breath or wheezing #8.5 grams bromfenac 0.07 % eye drops 1 drp OPL DAILY 08/29/23 08/29/23 History (Prolensa) bromfenac 0.07 % eye drops 1 drp OPR DAILY 08/29/23 08/29/23 History (Prolensa) moxifloxacin 0.5 % eye drops 1 drp OPR TID 08/29/23 08/29/23 History prednisolone acetate 1 % eye 1 drp OPL DIRECTED 08/29/23 08/29/23 History drops,suspension prednisolone acetate 1 % eye 1 drp OPR DIRECTED 08/29/23 08/29/23 History drops,suspension prednisone 10 mg tablet 10 mg PO .DAILY @ 1000 08/29/23 08/29/23 History Patient History Medical History (Updated 08/30/23 @ 14:32 by Adama Gómez MD) Congestive heart failure Pulmonary edema Chronic cough Diffuse myofascial pain syndrome Chronic low back pain Interstitial lung disease follows with [facility] (PRN) Diabetes mellitus type II, controlled pt denies Arrhythmia ? hx of a. fib- on Eliquis per cardiology -- hx of having a Loop Recorder in 2021 with no evidence of A.fib on the recorder at the time. no current treatment On home oxygen therapy 2-3L at rest/5L with activity Anxiety and depression History of blood transfusion Post-op 2016 Pulmonary hypertension Moderately elevated estimated RVSP (RVSP 40-50mmhg) per 01/19/22 echo IPF (idiopathic pulmonary fibrosis) PSVT (paroxysmal supraventricular tachycardia) pt denies/unaware Cerebrovascular accident (CVA) of left thalamus 06/11/2021 (post-op Right TKA) > POD#1 ischemic left thalamic stroke CVA with right sided weakness History of COVID-19 12/2020 > fully recovered Hyperglycemia Hx mild hyperglycemia under surveillance by PCP. Most recent A1C 5.6% (06/12/21) -- pt reports no continued issues at this time (08/06/2023) Shortness of breath Left bundle branch block Follows with [facility] cardiology IBS (irritable bowel syndrome) Intermittent flares - takes Amitriptyline and Protonix for GI pain control Spinal stenosis Hypothyroidism Osteopenia GERD (gastroesophageal reflux disease) Post traumatic stress disorder Bipolar disorder Surgical History (Updated 08/30/23 @ 14:32 by Adama Gómez MD) Status post right knee replacement (~05/2021) History of cataract surgery S/P revision of total knee 03/2022 at [facility] (Right TKA) Status post bronchoscopy With BAL 08/01/[address] Romero at [facility] History of loop recorder has since been removed in 09/2022 at [facility] History of total knee replacement Right TKA (06/10/21): SAB at L4-5 (x1 attempt) + PNB at [facility] History of surgery Right Quadriceps Repair (06/14/21): LMA#4 at [facility]. No issues noted per post-op anesthesia progress note. History of anesthesia reaction "Slow to wake" x1 episode after 3 hour surgery in 2017- she states she became violent and upset, hallucinated while waking up. Began to calm down once she heard her daughter's voice. History of hernia surgery History of colonoscopy History of arthroscopy R/L knee History of cholecystectomy Status post gastric banding surgery + removal History of hysterectomy Family History Family/Other No problems noted. Mother Colon cancer Dementia Father , at age 79 from mesothelioma. Mesothelioma Sister No problems noted. Sister No problems noted. Son No problems noted. Daughter No problems noted. Other Family history of diabetes mellitus in father Denies family history of Ovarian cancer Prostate cancer Myocardial infarction Breast cancer Social History Smoking Status: Never smoker Tobacco Type: Cigarettes packs per day: 1; Second Hand Exposure: No; Do You Dip or Chew Tobacco: No; Hx Alcohol Use: Yes Alcohol type: wine Hx Substance Use: No Preferred Language: Croatian Communication Ability: Effective Visual Impairment: No Limitations Electric Container Tester Required: No Beliefs That Will Affect Care: None marital status: Single Current Living Situation: Alone Current Living Situation Comment: "[facility] building, alone" current occupational status: retired Other Information That Helps Us Care for You: No Feels Safe at Home: Yes Safety Concerns: Feels Safe At This Time Childhood Exposure to Second-Hand Smoke: Yes Dental Care, Regularly: Yes Physical Activity Frequency: Daily Seatbelt Use: always Sunscreen Use: No Assistive Devices: Glasses, Oxygen - Continuous, Walker and Wheelchair Physical Exam Physical Exam: No distress. Weight of 210 pounds on bed scale yesterday is at the low end of her recent range. BP normotensive. Pulse 90 bpm and regular. Skin: no ecchymoses or generalized lesions. HEENT: unremarkable. Neck: [facility] to the angle of the jaw at 90 degrees, no carotid bruits. Lungs: Diffuse "dry" crackles both lung rubio. No abdominal paradox or accessory muscle use. Cardiac: regular rhythm, normal S1-2, no obvious murmur. Abdomen: benign. Extremities: Trace to 1+ pretibial edema, pulses intact. Neurologic: normal affect and conversation, nonfocal. Results & Data Laboratory Results Troponin 166, 195, 187, 139. BNP 509 (baseline 65). Potassium 3.3, BUN 13, creatinine 1.16. Diagnostic Findings ECG on admission showed sinus rhythm with PACs and fusion complexes, rate 99 bpm, chronic left bundle branch block. Echocardiogram June 2023 showed EF 35 to 40% with global hypokinesis, s eptal motion consistent with bundle branch block, moderate LVH, no significant valvular abnormalities on technically limited Doppler, mild pulmonary hypertension. Chest x-ray showed chronic interstitial lung disease with no acute process. No pulmonary edema or effusions. PG Care Time/CCT Total # of Minutes Spent Total Time Spent with Patient: Total time spent is greater than 50% in coordination of care (as documented) at patient's floor/unit and/or counseling patient: Coding Level of Care Code 94961 IN/OBS CONSULT LVL 4,60M Diagnoses Cardiomyopathy I42.9 Elevated troponin R79.89 Heart failure with reduced ejection fraction I50.20 Interstitial lung disease J84.9
[2023-08-30] MEDS ORDERED: MOXIFLOXACIN HCL 0.5% OP SOLN 3 ML BTL OPR SCH (15:00)
[2023-08-30] MEDS ORDERED: prednisoLONE acetate 1% OP SUSP 5 ML BTL OPR SCH (15:00)
[2023-08-30] MEDS: prednisoLONE acetate 1% OP SUSP 5 ML BTL OPR SCH ×2 (20:27→21:11)
[2023-08-30] MEDS: MOXIFLOXACIN HCL 0.5% OP SOLN 3 ML BTL OPR SCH (21:08)
[2023-08-30] MEDS: AMITRIPTYLINE HCL 25 MG TAB PO SCH (21:09)
[2023-08-30] MEDS: lamoTRIgine 100 MG TAB PO SCH (21:09)
[2023-08-30] MEDS: prednisoLONE acetate 1% OP SUSP 5 ML BTL OPL SCH (21:10)
--- NOTE | 2023-08-31 06:41 | Hospitalist Progress Note ---
Date of Service August 31, 2023 Assessment & Plan (1) Elevated troponin: (2) Secondary pulmonary hypertension: (3) Acute and chronic respiratory failure: (4) IPF (idiopathic pulmonary fibrosis): (5) Bipolar disorder: (6) IBS (irritable bowel syndrome): (7) Hypothyroidism: (8) GERD (gastroesophageal reflux disease): (9) Peripheral neuropathy: (10) Chronic kidney disease, stage 3a: (11) Acute exacerbation of congestive heart failure: Plan Pt is a 73 yo female with a past medical history of interstitial lung disease/idiopathic pulmonary fibrosis on 3L O2 at home, HFrEF, GERD, hypothyroidism who presents to the hospital on 08/29/23 for SOB and productive cough refractory to z-pack. Acute on chronic hypoxemic respiratory failure Interstitial lung disease/ idiopathic pulmonary fibrosis - pt requiring 4-6L O2, baseline is 4L -Due to volume overload and/or infectious process' -blood culture: no growth after 24hrs - sputum culture pending - continue albuterol - Levaquin q24h -Continue 40 mg prednisone daily - pulmonology consulted -Patient would largely benefit from temporary increase in her prednisone dose with an extended taper. - she is on her baseline 3 to 6 L of oxygen at this point. -pulmonary toileting with flutter valve and incentive spirometry. -Out of bed to chair as tolerated. Ambulate the patient when able to. Cardiomyopathy HFrEF - CXR showed cardiomegaly only - last echo 07/07 EF 35-40%, not on a diuretic outpatient - Received 1 mg bumex in ED - 40 mg lasix IV daily - fluid restrict 1.5L a day and monitor I+Os - cardiology consulted -low likelihood of cardiomyopathy exacerbation at this time -continue sliding scale diuretic regimen based on daily weights -mildly hypervolemic Elevated troponin - on admission 166, 195, 187.2 - suspect due to hypoxia/increasing oxygen requirements, EKG changes appear stable/chronic Hypokalemia K 3.3 40 meq replaced today follow BMP am CKD, 3a - GFR on admission 43, -Cr: 1.16 - will diurese with caution - daily CMP Hypothyroidism - continue home levothyroxine Peripheral neuropathy - continue home gabapentin - continue home topamax Pulm HTN, secondary - continue home sildenafil GERD - continue home pantoprazole IBS - continue home amitriptyline Bipolar disorder - continue home lamotrigine - continue home buspar VTE proph: lovenox 40 mg qam Diet: Regular Dispo: Medsurg + tele Admission and Anticipated Discharge Date Admission Date: August 29, 2023 Subjective Pt is a 73 yo female with a past medical history of interstitial lung disease/idiopathic pulmonary fibrosis on 3L O2 at home, HFrEF, GERD, hypothyroidism who presents to the hospital on 08/29/23 for SOB and productive cough refractory to z-pack. She states that last week she started to feel mores SOB requiring her to increase her home O2, additionally she had more productive cough with green sputum, sinus congestion and rhinorrhea. Pulmonary prescribe her a z -pack that she finished (08/18) without no improvement. She denies any chest pain, fevers, chill, fatigue or any other symptoms. She lives at home alone and uses a wheelchair when possible, trying to get a power scooter, limited primarily by desaturation when she walks around. Review of Systems Review of Systems: Rest as per HPI. Physical Exam Physical Exam: General: Alert and oriented, no acute distress, comfortable at this time Cardio: Regular rate and rhythm, no murmur, Resp: Faint crackles in right lower lobe, no wheezing GI: Soft and nontender, nondistended, bowel sounds active Skin: Warm, pink, dry, Psych: Mood-affect congruence. Results & Data Results & Data Vital Signs (Past 12 Hours) Vital Signs Temp Pulse Pulse Resp BP Pulse Ox O2 Del Method 08/31/23 04:13 36.4 C L 92 H 20 111/79 98 Room Air 08/30/23 23:58 37.1 C 74 20 125/76 95 Nasal Cannula 08/30/23 20:03 37.1 C 89 20 120/75 95 Nasal Cannula 08/30/23 19:30 100 H O2 Flow Rate 08/31/23 04:13 08/30/23 23:58 2 08/30/23 20:03 4 08/30/23 19:30 Resident Activity Tracking Resident Involvement: Resident Care Provided Care Provided: Adult Hospital Medicine
[2023-08-31 06:45] LABS: Basophils # (auto) 0.02 K/uL (0.00-0.20); Basophils % (auto) 0.2 %; Eosinophils # (auto) 0.07 K/uL (0.00-0.50); Eosinophils % (auto) 0.7 %; Hematocrit (blood only) 39.2 % (37.0-47.0); Hemoglobin 12.3 g/dl (12.0-16.0); Lymphocytes % (auto) 11.6 %; Mean Corpuscular Hemoglobin 26.1 pg (25.0-34.0); Mean Corpuscular Hgb Conc 31.4 g/dL (32.0-36.0); Mean Corpuscular Volume 83.2 fL (80.0-100.0); Mean Platelet Volume 11.3 fL (9.4-12.4); Monocytes # (auto) 0.94 K/uL (0.11-0.59); Monocytes % (auto) 9.1 %; Neutrophils # (auto) 8.03 K/uL (1.40-6.50); Neutrophils % (auto) 77.4 %; Platelet Count 268 K/uL (130-400); RDW Coefficient of Variation 16.1 % (11.5-14.5); RDW Standard Deviation 48.6 fL (36.4-46.3); Red Blood Count 4.71 M/uL (4.20-5.40); White Blood Count 10.36 K/ul (4.8-10.8)
[2023-08-31 07:02] LABS: Albumin Globulin Ratio 1.3 (0.9-2); Albumin Level 3.7 gm/dl (3.4-5.0); BUN Creatinine Ratio 19.7 (10-20); Bilirubin,Total 0.4 mg/dl (0.2-1.0); Calcium 9.6 mg/dl (8.6-10.3); Creatinine Clr Calc Pharmacy 42.9 ml/min; Est GFR (African American) 48.1 ml/min; Est GFR (Non-African American) 41.5 ml/min; Globulin 2.8 gm/dl (2.5-4.0); Magnesium 2.1 mg/dl (1.7-2.4); Phosphorus 3.3 mg/dl (2.5-4.9); Potassium 3.7 mmol/L (3.5-5.1); Total Protein 6.5 gm/dl (6.0-8.3)
[2023-08-31] MEDS: LEVOTHYROXINE SODIUM 137 MCG TABLET PO SCH (07:26)
[2023-08-31] MEDS: MOXIFLOXACIN HCL 0.5% OP SOLN 3 ML BTL OPR SCH (08:45)
[2023-08-31] MEDS: TOPIRAMATE 100 MG TAB PO SCH (08:46)
[2023-08-31] MEDS: PANTOprazole 40 MG TAB PO SCH (08:46)
[2023-08-31] MEDS: CYANOCOBALAMIN (B-12) 500 MCG TABLET PO SCH (08:46)
[2023-08-31] MEDS: FUROSEMIDE 40 MG/4 ML VIAL IV SCH (08:46)
[2023-08-31] MEDS: GABAPENTIN 100 MG CAP PO SCH (08:46)
[2023-08-31] MEDS: busPIRone 5 MG TAB PO SCH (08:46)
[2023-08-31] MEDS: SILDENAFIL CITRATE 20 MG TABLET PO SCH (08:46)
[2023-08-31] MEDS: predniSONE 20 MG TAB PO SCH (08:47)
[2023-08-31] MEDS: prednisoLONE acetate 1% OP SUSP 5 ML BTL OPR SCH (08:48)
[2023-08-31] MEDS: prednisoLONE acetate 1% OP SUSP 5 ML BTL OPL SCH (08:48)
[2023-08-31] MEDS ORDERED: BROMFENAC SODIUM 0.07% OPL SCH (09:00)
[2023-08-31] MEDS ORDERED: BROMFENAC SODIUM 0.07% OPR SCH (09:00)
--- NOTE | 2023-08-31 10:21 | Discharge Summary ---
Date of Service August 31, 2023 Admission HPI Per Admitting Provider Pt is a 73 yo female with a past medical history of interstitial lung disease/idiopathic pulmonary fibrosis on 3L O2 at home, HFrEF, GERD, hypothyroidism who presents to the hospital on 08/29/23 for SOB and productive cough refractory to z-pack. Pt states that last week she started to feel more SOB requiring her to eventually increase her home oxygen from 3L to 4L and she had a productive cough with green sputum, sinus congestion, and rhinorrhea. She states she talked to her technology teacher, who prescribed her a z-pack that she finished yesterday and she states she has had no improvement on the therapy. She denies chest pain. She is feeling better in terms of her SOB now after getting a neb treatment and a dose of bumex in the ED. She states that she does not take a diuretic for her heart failure and manages it with only a low sodium diet. She states that she takes her weights daily and at home she has been 212 lbs with no changes over the past few weeks, and she states that today while in the ED she noticed her legs were more swollen than usual, which she did not notice at home. She lives at home alone and uses a wheelchair when possible, trying to get a power scooter, limited primarily by desaturation when she walks around. Admission Exam Per Admitting Provider General: Alert and oriented, no acute distress, comfortable at this time Cardio: Regular rate and rhythm, no murmur, Resp: Faint crackles in right lower lobe, no wheezing GI: Soft and nontender, nondistended, bowel sounds active Skin: Warm, pink, dry, Psych: Mood-affect congruence. 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 Discharge Exam Constitutional: well-appearing, no acute distress HEENT: NCAT, no conjunctival injection CV: regular rhythm, no murmur appreciated, extremities well-perfused, nonpitting LE edema Resp: rales at bases, no increased work of breathing MSK: no gross deformities appreciated Skin: warm, dry, no rash appreciated Neuro: alert, oriented, no focal neurologic deficit appreciated Discharge Data Allergies Allergy/AdvReac Type Severity Reaction Status Date / Time latex Allergy Intermediate Rash, hand Verified 08/29/23 18:35 swelling Sulfa (Sulfonamide Allergy Intermediate Rash Verified 08/29/23 18:35 Antibiotics) Penicillins Allergy Unknown Unknown Verified 08/29/23 18:35 reaction (as teenager) morphine AdvReac Intermediate Anxiety Verified 08/29/23 18:35 Consultations 08/29/23 18:35 ED Decision to Admit Stat 08/29/23 18:48 Consult Cardiology Routine Consult Pulmonology Routine Ordered Studies Microbiology 08/29/23 19:11 Blood Aerobic Blood Culture - Preliminary No growth in Aerobic bottle after 24 hours. 08/29/23 19:11 Blood Anaerobic Blood Culture - Preliminary No growth in Anaerobic bottle after 24 hours. 08/29/23 19:34 Blood Aerobic Blood Culture - Preliminary No growth in Aerobic bottle after 24 hours. 08/29/23 19:34 Blood Anaerobic Blood Culture - Preliminary No growth in Anaerobic bottle after 24 hours. 08/30/23 07:00 Sputum, Expectorated Gram Stain - Final 08/30/23 07:00 Sputum, Expectorated Sputum Culture - Pending Labs 08/29/23 08/29/23 08/29/23 16:48 19:11 21:58 WBC 11.44 H RBC 4.97 Hgb 12.9 Hct 41.2 MCV 82.9 MCH 26.0 MCHC 31.3 L RDW Std Deviation 49.2 H RDW Coeff of Ese 16.4 H Plt Count 297 MPV 11.0 Immature Gran % (Auto) 0.7 Neut % (Auto) 67.7 Lymph % (Auto) 16.9 Cotton % (Auto) 9.4 Eos % (Auto) 4.5 Baso % (Auto) 0.8 Neut # (Auto) 7.75 H Lymph # (Auto) 1.93 Cotton # (Auto) 1.07 H Eos # (Auto) 0.52 H Baso # (Auto) 0.09 Immature Gran # (Auto) 0.08 ESR 48 H PT 11.1 INR 1.0 APTT 26.8 PTT Ratio 1.0 Sodium 138 Potassium 3.6 Chloride 105 Carbon Dioxide 24 Anion Gap 9 BUN 11 Creatinine 1.23 H Est Cr Clr Drug Dosing Not Reportable Est GFR ( Amer) 50.0 Est GFR (Non-Af Amer) 43.2 BUN/Creatinine Ratio 8.9 L Glucose 99 Calcium 9.7 Phosphorus Magnesium 2.0 Total Bilirubin 0.5 AST 15 ALT 11 Alkaline Phosphatase 92 Troponin I High Sens 166.6 H* 195.5 H* C-Reactive Protein 2.50 H B-Natriuretic Peptide 509 H Total Protein 7.0 Albumin 4.0 Globulin 3.0 Albumin/Globulin Ratio 1.3 Procalcitonin < 0.05 TSH Nasal Screen MRSA (PCR) Adenovirus (PCR) Not Detected B. pertussis DNA (PCR) Not Detected B.parapertussis DNA PCR Not Detected C. pneumoniae DNA (PCR) Not Detected Coronavirus OC43 (PCR) Not Detected Coronavirus HKU1 (PCR) Not Detected Coronavirus 229E (PCR) Not Detected SARS-CoV-2 (PCR) Not Detected Coronavirus NL63 (PCR) Not Detected Human Metapneumovir PCR Not Detected Influenza Type A (PCR) Not Detected Influenza Type B (PCR) Not Detected M. pneumoniae (PCR) Not Detected Parainfluenza 1 (PCR) Not Detected Parainfluenza 2 (PCR) Not Detected Parainfluenza 3 (PCR) Not Detected Parainfluenza 4 (PCR) Not Detected RSV (PCR) Not Detected Entero/Rhino (PCR) Not Detected 08/29/23 08/30/23 08/30/23 23:18 03:15 04:18 WBC 9.77 RBC 4.76 Hgb 12.4 Hct 40.0 MCV 84.0 MCH 26.1 MCHC 31.0 L RDW Std Deviation 49.5 H RDW Coeff of Ese 16.2 H Plt Count 231 MPV 11.1 Immature Gran % (Auto) 0.6 Neut % (Auto) 65.2 Lymph % (Auto) 18.3 Cotton % (Auto) 10.0 Eos % (Auto) 5.2 Baso % (Auto) 0.7 Neut # (Auto) 6.36 Lymph # (Auto) 1.79 Cotton # (Auto) 0.98 H Eos # (Auto) 0.51 H Baso # (Auto) 0.07 Immature Gran # (Auto) 0.06 ESR PT INR APTT PTT Ratio Sodium 139 Potassium 3.3 L Chloride 106 Carbon Dioxide 26 Anion Gap 7 BUN 13 Creatinine 1.16 Est Cr Clr Drug Dosing 47.8 Est GFR ( Amer) 53.7 Est GFR (Non-Af Amer) 46.3 BUN/Creatinine Ratio 11.2 Glucose 123 H Calcium 9.2 Phosphorus Magnesium Total Bilirubin 0.5 AST 14 ALT 9 Alkaline Phosphatase 85 Troponin I High Sens 187.2 H* C-Reactive Protein B-Natriuretic Peptide Total Protein 6.4 Albumin 3.5 Globulin 2.9 Albumin/Globulin Ratio 1.2 Procalcitonin TSH 2.408 Nasal Screen MRSA (PCR) Negative Adenovirus (PCR) B. pertussis DNA (PCR) B.parapertussis DNA PCR C. pneumoniae DNA (PCR) Coronavirus OC43 (PCR) Coronavirus HKU1 (PCR) Coronavirus 229E (PCR) SARS-CoV-2 (PCR) Coronavirus NL63 (PCR) Human Metapneumovir PCR Influenza Type A (PCR) Influenza Type B (PCR) M. pneumoniae (PCR) Parainfluenza 1 (PCR) Parainfluenza 2 (PCR) Parainfluenza 3 (PCR) Parainfluenza 4 (PCR) RSV (PCR) Entero/Rhino (PCR) 08/30/23 08/31/23 08:22 05:29 WBC 10.36 RBC 4.71 Hgb 12.3 Hct 39.2 MCV 83.2 MCH 26.1 MCHC 31.4 L RDW Std Deviation 48.6 H RDW Coeff of Ese 16.1 H Plt Count 268 MPV 11.3 Immature Gran % (Auto) 1.0 Neut % (Auto) 77.4 Lymph % (Auto) 11.6 Cotton % (Auto) 9.1 Eos % (Auto) 0.7 Baso % (Auto) 0.2 Neut # (Auto) 8.03 H Lymph # (Auto) 1.20 Cotton # (Auto) 0.94 H Eos # (Auto) 0.07 Baso # (Auto) 0.02 Immature Gran # (Auto) 0.10 ESR PT INR APTT PTT Ratio Sodium 138 Potassium 3.7 Chloride 105 Carbon Dioxide 24 Anion Gap 9 BUN 25 H Creatinine 1.27 H Est Cr Clr Drug Dosing 42.9 Est GFR ( Amer) 48.1 Est GFR (Non-Af Amer) 41.5 BUN/Creatinine Ratio 19.7 Glucose 128 H Calcium 9.6 Phosphorus 3.3 Magnesium 2.1 Total Bilirubin 0.4 AST 13 ALT 8 Alkaline Phosphatase 78 Troponin I High Sens 139.0 H* D C-Reactive Protein B-Natriuretic Peptide Total Protein 6.5 Albumin 3.7 Globulin 2.8 Albumin/Globulin Ratio 1.3 Procalcitonin TSH Nasal Screen MRSA (PCR) Adenovirus (PCR) B. pertussis DNA (PCR) B.parapertussis DNA PCR C. pneumoniae DNA (PCR) Coronavirus OC43 (PCR) Coronavirus HKU1 (PCR) Coronavirus 229E (PCR) SARS-CoV-2 (PCR) Coronavirus NL63 (PCR) Human Metapneumovir PCR Influenza Type A (PCR) Influenza Type B (PCR) M. pneumoniae (PCR) Parainfluenza 1 (PCR) Parainfluenza 2 (PCR) Parainfluenza 3 (PCR) Parainfluenza 4 (PCR) RSV (PCR) Entero/Rhino (PCR) Chest X-Ray 08/29/23 15:50 XR chest 1V not portable HISTORY: 73 years-old Female Chest pain, nonspecific acute chest pain with wheezing COMPARISON: 06/14/2023 TECHNIQUE: AP view of the chest FINDINGS: Cardiac silhouette is enlarged. Chronic interstitial lung disease. No pneumothorax, pleural effusion or overt pulmonary edema. Degenerative changes of the shoulders and spine. IMPRESSION: 1. No acute process. 2. Cardiomegaly with chronic interstitial lung disease. ACT 112: Negative or not required by law. The above report was generated using voice recognition software. It may contain grammatical, syntax or spelling errors. Electronically signed by: Osvaldo Malone M.D. 08/29/2023 4:29 PM Hospital Course (1) Elevated troponin: (2) Secondary pulmonary hypertension: (3) Acute and chronic respiratory failure: (4) IPF (idiopathic pulmonary fibrosis): (5) Bipolar disorder: (6) IBS (irritable bowel syndrome): (7) Hypothyroidism: (8) GERD (gastroesophageal reflux disease): (9) Peripheral neuropathy: (10) Chronic kidney disease, stage 3a: (11) Acute exacerbation of congestive heart failure: Plan 73 yo female with a past medical history of interstitial lung disease/idiopathic pulmonary fibrosis on 3L O2 at home, HFrEF, GERD, hypothyroidism who presents to the hospital on 08/29/23 for SOB and productive cough refractory to z-pack. Acute on chronic hypoxemic respiratory failure - After rule out of infectious disease and acute CHF, seem to be due to mild hypovolemia. Chest x-ray reviewed and demonstrates a bit of volume overload. Her procalcitonin is unremarkable despite a slight elevation her white blood cell count. Patient was treated with IV lasix, Levaquin, albuterol and high dose prednisone. - pulmonology consulted, recommendations: -temporary increase in her prednisone dose with an extended taper. -pulmonary toileting with flutter valve and incentive spirometry. -Patient was discharge with Prednisone taper and instructions to follow up with PCP and Reefer Truck Driver Cardiomyopathy HFrEF - Acute CHF was rule out during this admission. - cardiology consulted -low likelihood of cardiomyopathy exacerbation at this time -continue sliding scale diuretic regimen based on daily weights Elevated troponin - on admission elevated troponin were noticed. - suspect due to hypoxia/increasing oxygen requirements, EKG changes appear stable/chronic Total Time Total Time Spent Total Time Spent (In Minutes): see attending attestation Discharge Plan Discharge Items Patient Disposition: Home - Self-Care Reason For Visit: SHORTNESS OF BREATH, INCREASING OXYGEN NEEDS Discharge Diagnosis: COPD exarcebation Condition on Discharge: Fair Activity: Resume your previous activity Non-emergency contact: Primary Care Provider and Reefer Truck Driver Call non-emergency contact if: you have any medication questions Follow-up/Referrals: Ted Singh MD [Primary Care Provider] - 09/10/23 3:00 pm (THIS APPOINTMENT WILL BE WITH DR QUACH) Diet: Regular and Low Sodium (2gm) Addtl Attending Provider Instructions: You were admitted to the hospital for COPD exacerbation. We rule out any acute heart failure exacerbation as well. You were treated with antibiotics and Lasix. Pulmonary was consulted, reason of exacerbation seem to be volume overload. They recommendation was to continue prednisone, flutter valve and spirometry. You will be discharge with Prednisone taper, you will: Take 40 mg (4 tabs) for 3 more days Then take 30 mg (3 tabs) for 5 days Then take 20 mg (2 tabs) for 5 days Then continue taking 10 mg daily Continue sliding scale diuretic regimen based on daily weights, for example furosemide 40 mg orally for weight gain of 2 pounds in 1 day or 5 pounds in 1 week. A discharge summary will be sent to your primary care physician to ensure continuity of care. Please bring this discharge summary with you to your next office appointment so that your provider can review it at that time. It's important to follow up with the heart failure clinic, as per Cardiology recommendations. Follow-up appointments: Make a follow-up appointment with your PCP within the next week. It is very important that you follow up with them shortly after discharge from the hospital. Take your medications as instructed; do not skip a dose of your medicines. Make sure all of your doctors know every medicine you are taking (including fkop-ohu-ulspsru medicines, vitamins, and supplements). Call your primary care provider before taking any new medicines (including over- the- counter medicines, vitamins, and supplements), because some of these may interact with your current medications, or may make your symptoms worse. Tell your primary care provider if you cannot afford your medications. CALL 911 OR GO TO THE EMERGENCY DEPARTMENT if you experience any of the fo llowing: Sudden, severe abdominal pain or nausea/vomiting Severe chest pain, or chest pain that radiates (moves) to your jaw or arm Sudden, severe shortness of breath or difficulty breathing Thank you for allowing us to participate in your care. Pending Studies at Discharge: No Stand-Alone Forms: My [facility] [employer], Smoking Cessation Medications and DC Order Prescriptions: New prednisone 10 mg tablet 10 mg PO DAILY Qty: 47 0RF Rx Instructions: Take 40 mg (4 tabs) for 3 more days Then take 30 mg (3 tabs) for 5 days Then take 20 mg (2 tabs) for 5 days Then continue taking 10 mg daily Continued amitriptyline 25 mg tablet 25 mg PO HS Qty: 90 3RF tramadol 50 mg tablet 50 mg PO Q6H PRN (Reason: pain) Qty: 20 0RF sildenafil (pulm.hypertension) [Revatio] 20 mg tablet 20 mg PO TID Qty: 90 3RF Rx Instructions: administer doses at least 4-6 hours apart pantoprazole 40 mg tablet,delayed release (DR/EC) 40 mg PO BID Qty: 30 2RF albuterol sulfate 90 mcg/actuation HFA aerosol inhaler 2 inh inhalation QID PRN (Reason: shortness of breath or wheezing) Qty: 8.5 0RF levothyroxine 137 mcg tablet 137 mcg PO QAM buspirone 10 mg tablet 20 mg PO .DAILY @ 1000 mycophenolate mofetil [CellCept] 250 mg capsule 500 mg PO BID cyanocobalamin (vitamin B-12) 1,000 mcg capsule 1,000 mcg PO QAM gabapentin 100 mg Capsule See Rx Instructions .ROUTE .COMPLEX Rx Instructions: TAKES 100 MG AT 1000 & 1300 topiramate 100 mg Tablet See Rx Instructions .ROUTE .COMPLEX Rx Instructions: TAKES 100 MG AT 1000 & [id number] mg orally lamotrigine 150 mg tablet 150 mg PO HS acetaminophen [Tylenol] 325 mg Tablet 650 mg PO QID PRN (Reason: Pain) prednisone 10 mg tablet 10 mg PO .DAILY @ 1000 prednisolone acetate 1 % Drops,Suspension 1 drp OPR DIRECTED Rx Instructions: 08/29/2023-09/05/2023 QID 09/05/2023-09/12/2023 TID 09/12/2023-09/19/2023 Daily Stop 09/26/2023 moxifloxacin 0.5 % Drops 1 drp [facility]PR TID Rx Instructions: Stop 09/05/2023 Prolensa 0.07 % Drops 1 drp OPR DAILY Rx Instructions: Stop 09/26/2023 prednisolone acetate 1 % Drops,Suspension 1 drp OPL DIRECTED Rx Instructions: 08/29/2023-09/05/2023 BID 09/05/2023-09/12/2023 Daily 09/12/2023 Stop Prolensa 0.07 % Drops 1 drp OPL DAILY Rx Instructions: Stop 09/12/2023 Discharge Orders: Discharge Order (Routine); Ordered 08/31/23 Ordered By: Sera Edwards Admission Data Admit Date/Time: 08/29/23 20:33 Attending Provider: Radha Man Admit Provider: Melissa Villagomez Primary Care Provider: Ted Singh Other Providers: Servando Allen; Sherman Campos; Simi Sorensen Other Interventions: Discharge Summary Assessment (RN) Last Done: 08/31/23 12:42 Supervising Physician Co-Signing Physician Notes Resident Physician Supervision Note: I independently interviewed and examined the patient and verified the mcclure history and physical, reviewed labs and image studies and agree with resident findings and care plan. Acute on chronic respiratory failure ILD Acute on chronic HFrEF - No recent weight gain. likely multifactorial. likely inflammatory process (no infection) contributing. Improved with steroids and dose of lasix. Received IV antibiotics but no concern of infection. Home on steroids and to continue prn dose of lasix. Follow up heart failure clinic. Resident Activity Tracking Resident Involvement: Resident Care Provided Care Provided: Adult Hospital Medicine
--- NOTE | 2023-08-31 11:39 | Cardiology Progress Note ---
Date of Service August 31, 2023 Assessment & Plan (1) Heart failure with reduced ejection fraction: (2) Cardiomyopathy: (3) Elevated troponin: (4) Interstitial lung disease: Plan Severe interstitial lung disease with element of volume overload, she feels better after overnight diuresis. Prednisone temporarily increased. Given levofloxacin for possible bronchitis (change in sputum character). Okay for discharge on weight-based diuretic regimen. Since she is still mildly hypervolemic, could utilize furosemide 40 mg daily until she loses 3 pounds from her discharge weight. At that point would hold diuretic and utilize intermittently for any day-to-day weight gain (such as 2 pound weight gain in 1 day or 5 pound weight gain in 1 week). Would add potassium supplement (potassium chloride 10 mEq) to be taken any day she takes furosemide. Recommend follow-up with Tara Velasquez PA-C in heart failure clinic in 1 week. Admission and Anticipated Discharge Date Admission Date: August 29, 2023 Subjective She noted good diuresis overnight and feels much better, no longer notes any dyspnea. She is anxious to return home. Telemetry showed sinus rhythm with episodes of mild sinus tachycardia. Physical Exam Physical Exam: No distress. Weight not accurate (bed scale). BP low normal. Pulse 95 bpm and regular. Skin: no ecchymoses or generalized lesions. HEENT: unremarkable. Neck: JVP one quarter of the way to the angle of the jaw at 90 degrees, no carotid bruits. Lungs: Diffuse "dry" crackles both lung rubio. No abdominal paradox or accessory muscle use. Cardiac: regular rhythm, normal S1-2, no obvious murmur. Abdomen: benign. Extremities: Trace pretibial edema, pulses intact. Neurologic: normal affect and conversation, nonfocal. Results & Data Laboratory Results Normal electrolytes, BUN 25, creatinine 1.27. PG Care Time/CCT Total # of Minutes Spent Total Time Spent with Patient: Total time spent is greater than 50% in coordination of care (as documented) at patient's floor/unit and/or counseling patient: Coding Level of Care Code 61209 SUB INP/OBS CARE 3/50MIN Diagnoses Heart failure with reduced ejection fraction I50.20 Cardiomyopathy I42.9 Elevated troponin R79.89 Interstitial lung disease J84.9
== END 2023-08-31 14:18 | disposition home or self-care (01) | DRG 190 ==
LOC: ED 15:36 → SUATTDRO 20:33 → EDINP 20:33 → 2N 08-30 15:00

== ENCOUNTER 2023-10-04 14:53 | Inpatient (IN) ==
[2023-10-04 15:49] LABS: Basophils # (auto) 0.09 K/uL (0.00-0.20); Basophils % (auto) 0.9 %; Eosinophils # (auto) 0.29 K/uL (0.00-0.50); Hematocrit (blood only) 41.1 % (37.0-47.0); Lymphocytes # (auto) 1.45 K/uL (1.20-3.40); Lymphocytes % (auto) 15.2 %; Mean Corpuscular Hemoglobin 25.8 pg (25.0-34.0); Mean Corpuscular Hgb Conc 31.6 g/dL (32.0-36.0); Mean Corpuscular Volume 81.5 fL (80.0-100.0); Mean Platelet Volume 10.8 fL (9.4-12.4); Monocytes # (auto) 0.92 K/uL (0.11-0.59); Monocytes % (auto) 9.6 %; Neutrophils # (auto) 6.69 K/uL (1.40-6.50); Neutrophils % (auto) 70.3 %; Platelet Count 537 K/uL (130-400); RDW Coefficient of Variation 17.2 % (11.5-14.5); RDW Standard Deviation 49.9 fL (36.4-46.3); Red Blood Count 5.04 M/uL (4.20-5.40); White Blood Count 9.54 K/ul (4.8-10.8)
[2023-10-04 15:58] LABS: Albumin Globulin Ratio 1.4 (0.9-2); Albumin Level 3.9 gm/dl (3.4-5.0); Bilirubin,Total 0.5 mg/dl (0.2-1.0); Calcium 8.9 mg/dl (8.6-10.3); Creatinine Clr Calc Pharmacy 53.9 ml/min; Est GFR (African American) 64.3 ml/min; Est GFR (Non-African American) 55.5 ml/min; Globulin 2.8 gm/dl (2.5-4.0); Potassium 3.6 mmol/L (3.5-5.1); Total Protein 6.7 gm/dl (6.0-8.3)
[2023-10-04] MEDS ORDERED: FUROSEMIDE 40 MG/4 ML VIAL IV ONE (16:04)
--- NOTE | 2023-10-04 16:04 | XRay Report ---
XR chest 1V portable HISTORY: Chest pain, nonspecific COMPARISON: Chest 08/29/2023. FINDINGS: No pneumothorax. No pleural effusions. The heart remains mildly enlarged. Cardiomegaly and chronic interstitial thickening persists. This suggests pulmonary fibrosis. No new focal lung consoli dations to suggest a pneumonia. No evidence for pulmonary edema. No acute fractures identified. IMPRESSION: 1. No acute process within the chest. 2. Cardiomegaly and chronic interstitial lung disease/fibrosis again noted. ACT 112: Negative or not required by law. Electronically signed by: Lalo Vanegas M.D. 10/04/2023 4:02 PM
[2023-10-04 16:08] LABS: Troponin I High Sensitivity 184.7 pg/ml (0-14)
[2023-10-04 16:12] LABS: Partial Thromboplastin Time 27 Seconds (21-31); Prothrombin Time 11.2 Seconds (9.0-12.0)
--- NOTE | 2023-10-04 16:19 | Emergency Department Note ---
Impression & Plan SOB (shortness of breath), Elevated troponin, CHF (congestive heart failure), Pedal edema ED Provider Note NAME: MOHINI AMEZCUA AGE: 73 SEX: F : 1950 ARRIVES VIA: Ambulance INFORMANT: [Patient] ED PROVIDER(S): [Jose Maria Grossman MD] CHIEF COMPLAINT: Short of breath HISTORY OF PRESENT ILLNESS: The patient is a 73-year-old female has had increasing shortness of breath for 2 weeks. She wears 5 L of oxygen at all times but despite this, her O2 saturation has been dropping to the 70s and 80s especially with exertion. She has had some increased urination. No fever, no chills, no chest pain. She has noticed increasing leg edema. Because of the ongoing dyspnea and how things are worsening, she presents for evaluation. Of note, her doctor's office did call in some diuretics for her however, she has not yet picked them up. PMHx/PSHx/Social Hx: See Below PHYSICAL EXAM: GENERAL: Patient is in no acute distress. HEENT: No acute trauma, normocephalic atraumatic, mucous membranes moist, no nasal congestion. NECK: No stridor, no adenopathy, no meningismus, trachea is midline. LUNGS: Crackles bilaterally with bilateral wheezing. No obvious respiratory distress. HEART: Mildly tachycardic, regular rhythm, no murmurs. ABDOMEN: Soft, nontender, no peritonitis. Obese. EXTREMITIES: No cyanosis, full range of motion of all the joints without pain or difficulty. Moderate bilateral pedal edema. NEUROLOGIC: Oriented x 3, no acute motor or sensory deficits, no focal weakness. SKIN: No jaundice, no diaphoresis. DIFFERENTIAL DIAGNOSIS: CHF, exacerbation of COPD, CT, dysrhythmia, anemia, viral illness, bronchitis or pneumonia, among others. EMERGENCY DEPARTMENT PROCEDURES: MEDICAL DECISION MAKING: There is no leukocytosis or concerning anemia. Platelet count is somewhat elevated at 537. No coagulopathy. No renal failure or significant electrolyte abnormality. BNP was elevated consistent with CHF and fluid overload. Chest x- ray shows a pulmonary fibrosis and possibly, some mild CHF. There was no pneumonia. ECG shows sinus tachycardia, no obvious acute ischemia. Cardiac enzyme testing x 1 was somewhat elevated. This troponin elevation could be secondary to cardiac injury or potentially just mismatch from her hypoxia and tachycardia. COVID, influenza and RSV test were negative. On exam, the patient did have crackles on lung auscultation. She had pedal edema. The patient was given IV Lasix, 40 mg. The patient is in need of a hospital stay. She has been hypoxic, short of breath. She appears to be fluid overloaded. She requires IV diuresis. I spoke with the patient, I did speak with her daughter by phone. I did talk with case management, the on-call hospitalist has been consulted. Prior/Outside records/notes reviewed: EMS notes. ECG per my interpretation: Indication was shortness of breath. The ECG shows a sinus tachycardia with an occasional PVC. The rate is 109. There is a left bundle branch block. There is no concerning ST elevation, the QTc is 498. Continuous Cardiac Monitoring per my interpretation: An order was placed for continuous cardiac monitoring. The monitor shows a rate of 121 with sinus tachycardia. Imaging/x-ray results per my interpretation: Chest x-ray shows some chronic parenchymal changes consistent with her pulmonary fibrosis. There may be some mild CHF, no focal pneumonia or pneumothorax. Chronic Medical/Social conditions affecting care: Pulmonary fibrosis, advanced age. Care/Management discussed with: Case management and the on-call hospitalist. Level of care consideration(s): After review of the information above and other included data: --I believe the patient requires escalation of care to admission DISPOSITION: Admission Past Med/Surg History Medical History Major depressive disorder Leukocytosis Elevated brain natriuretic peptide (BNP) level Pedal edema Fluid overload Exertional dyspnea Elevated troponin Secondary pulmonary hypertension Congestive heart failure Pulmonary edema Chronic cough Diffuse myofascial pain syndrome Chronic low back pain Interstitial lung disease follows with [facility] (PRN) Diabetes mellitus type II, controlled pt denies Arrhythmia ? hx of a. fib- on Eliquis per cardiology -- hx of having a Loop Recorder in 2021 with no evidence of A.fib on the recorder at the time. no current treatment On home oxygen therapy 2-3L at rest/5L with activity Anxiety and depression History of blood transfusion Post-op 2016 Pulmonary hypertension Moderately elevated estimated RVSP (RVSP 40-50mmhg) per 01/19/22 echo IPF (idiopathic pulmonary fibrosis) PSVT (paroxysmal supraventricular tachycardia) pt denies/unaware Cerebrovascular accident (CVA) of left thalamus 06/11/2021 (post-op Right TKA) > POD#1 ischemic left thalamic stroke CVA with right sided weakness History of COVID-19 12/2020 > fully recovered Hyperglycemia Hx mild hyperglycemia under surveillance by PCP. Most recent A1C 5.6% (06/12/21) -- pt reports no continued issues at this time (08/06/2023) Shortness of breath Left bundle branch block Follows with [facility] IBS (irritable bowel syndrome) Intermittent flares - takes Amitriptyline and Protonix for GI pain control Spinal stenosis Hypothyroidism Osteopenia GERD (gastroesophageal reflux disease) Post traumatic stress disorder Bipolar disorder Surgical History Status post right knee replacement (~05/2021) History of cataract surgery S/P revision of total knee 03/2022 at [facility] (Right TKA) Status post bronchoscopy With BAL 08/01/[address] Romero at [facility] History of loop recorder has since been removed in 09/2022 at [facility] History of total knee replacement Right TKA (06/10/21): SAB at L4-5 (x1 attempt) + PNB at [facility] History of surgery Right Quadriceps Repair (06/14/21): LMA#4 at [facility]. No issues noted per post-op anesthesia progress note. History of anesthesia reaction "Slow to wake" x1 episode after 3 hour surgery in 2017- she states she became violent and upset, hallucinated while waking up. Began to calm down once she heard her daughter's voice. History of hernia surgery History of colonoscopy History of arthroscopy R/L knee History of cholecystectomy Status post gastric banding surgery + removal History of hysterectomy Family History Family/Other No problems noted. Mother Colon cancer Dementia Father , at age 79 from mesothelioma. Mesothelioma Sister No problems noted. Sister No problems noted. Son No problems noted. Daughter No problems noted. Other Family history of diabetes mellitus in father Denies family history of Ovarian cancer Prostate cancer Myocardial infarction Breast cancer Social History Smoking Status: Former smoker Tobacco Type: Cigarettes packs per day: 1; Second Hand Exposure: No; Do You Dip or Chew Tobacco: No; Hx Alcohol Use: Yes Alcohol type: wine Hx Substance Use: No Preferred Language: Setswana Communication Ability: Effective Visual Impairment: No Limitations Executive Vice President [employer] Required: No Beliefs That Will Affect Care: None marital status: Single Current Living Situation: Alone Current Living Situation Comment: "[facility] building, alone" current occupational status: retired Feels Safe at Home: Yes Childhood Exposure to Second-Hand Smoke: Yes Dental Care, Regularly: Yes Physical Activity Frequency: Daily Seatbelt Use: always Sunscreen Use: No Assistive Devices: Glasses, Oxygen - Continuous, Walker and Wheelchair Allergies Allergies Allergy/AdvReac Type Severity Reaction Status Date / Time latex Allergy Intermediate Rash, hand Verified 10/04/23 17:12 swelling Sulfa (Sulfonamide Allergy Intermediate Rash Verified 10/04/23 17:12 Antibiotics) Penicillins Allergy Unknown Unknown Verified 10/04/23 17:12 reaction (as teenager) morphine AdvReac Intermediate Anxiety Verified 10/04/23 17:12 Home Meds Home Medications Medication Instructions Recorded Confirmed buspirone 10 mg tablet 10 mg PO TID 03/02/23 10/04/23 levothyroxine 137 mcg tablet 137 mcg PO QAM 03/02/23 10/04/23 acetaminophen 325 mg tablet 650 mg PO QID PRN Pain 06/14/23 10/04/23 (Tylenol) lamotrigine 150 mg tablet 150 mg PO HS 06/14/23 10/04/23 cyanocobalamin (vitamin B-12) 1,000 mcg PO QAM 08/06/23 10/04/23 1,000 mcg capsule gabapentin 100 mg capsule 100 mg PO BID 08/06/23 10/04/23 topiramate 100 mg tablet 100 mg PO BID 08/06/23 10/04/23 prednisone 10 mg tablet 10 mg PO DAILY 08/29/23 10/04/23 albuterol sulfate 90 mcg/actuation 2 inh inhalation Q4H PRN shortness 10/04/23 10/04/23 aerosol inhaler of breath or wheezing furosemide 20 mg tablet 20 mg PO DAILY 10/04/23 10/04/23 mycophenolate mofetil 250 mg 750 mg PO BID 10/04/23 10/04/23 capsule Previous Rx's Medication Instructions Recorded amitriptyline 25 mg tablet 25 mg PO HS #90 tabs 12/13/21 pantoprazole 40 mg tablet,delayed 40 mg PO BID #30 tabs 08/16/23 release sildenafil (pulm.hypertension) 20 20 mg PO TID #90 tabs 08/16/23 mg tablet (Revatio) Results & Data (ED) Vital Signs Vital Signs - 24 hr 10/04/23 15:08 10/04/23 15:08 10/04/23 15:08 Temperature 36.5 C Temperature Source Oral Pulse Rate 116 H Pulse Rate from SpO2 Sensor Respiratory Rate 20 Respiratory Effort / Characteristics Non-Labored Spontaneous Non-Labored Spontaneous Respiratory Depth Normal Normal Respiratory Pattern Regular Blood Pressure 134/93 Blood Pressure Mean 106 Pulse Oximetry 97 97 Oxygen Delivery Method Room Air Nasal Cannula Oxygen Flow Rate 5 Sepsis Recent Fever Within 48 Hours No Sepsis New/Unexplained Change in Mental Status N/A Sepsis Action Taken by Nursing No Action Required 10/04/23 15:23 10/04/23 15:30 10/04/23 15:34 Temperature Temperature Source Pulse Rate 120 H 120 H 123 H Pulse Rate from SpO2 Sensor 120 H 122 H Respiratory Rate 30 H 29 H Respiratory Effort / Characteristics Respiratory Depth Respiratory Pattern Blood Pressure Blood Pressure Mean Pulse Oximetry 98 97 Oxygen Delivery Method Oxygen Flow Rate Sepsis Recent Fever Within 48 Hours Sepsis New/Unexplained Change in Mental Status Sepsis Action Taken by Nursing 10/04/23 15:43 10/04/23 15:43 10/04/23 16:00 Temperature Temperature Source Pulse Rate 109 H 112 H Pulse Rate from SpO2 Sensor 112 H 114 H Respiratory Rate 27 H 28 H Respiratory Effort / Characteristics Respiratory Depth Respiratory Pattern Blood Pressure 148/97 H Blood Pressure Mean 130 Pulse Oximetry 99 95 Oxygen Delivery Method Oxygen Flow Rate Sepsis Recent Fever Within 48 Hours Sepsis New/Unexplained Change in Mental Status Sepsis Action Taken by Nursing 10/04/23 16:30 10/04/23 16:59 10/04/23 16:59 Temperature Temperature Source Pulse Rate 112 H 113 H Pulse Rate from SpO2 Sensor 111 H 114 H Respiratory Rate 31 H 27 H Respiratory Effort / Characteristics Respiratory Depth Respiratory Pattern Blood Pressure 157/96 H Blood Pressure Mean 117 Pulse Oximetry 98 94 Oxygen Delivery Method Oxygen Flow Rate Sepsis Recent Fever Within 48 Hours Sepsis New/Unexplained Change in Mental Status Sepsis Action Taken by Nursing 10/04/23 17:00 10/04/23 17:00 10/04/23 17:30 Temperature Temperature Source Pulse Rate 113 H 110 H Pulse Rate from SpO2 Sensor 113 H 110 H Respiratory Rate 33 H 23 Respiratory Effort / Characteristics Respiratory Depth Respiratory Pattern Blood Pressure 153/100 H Blood Pressure Mean 117 Pulse Oximetry 92 99 Oxygen Delivery Method Oxygen Flow Rate Sepsis Recent Fever Within 48 Hours Sepsis New/Unexplained Change in Mental Status Sepsis Action Taken by Nursing 10/04/23 17:30 10/04/23 18:00 10/04/23 18:00 Temperature Temperature Source Pulse Rate 108 H Pulse Rate from SpO2 Sensor 108 H Respiratory Rate 27 H Respiratory Effort / Characteristics Respiratory Depth Respiratory Pattern Blood Pressure 141/106 H 131/108 H Blood Pressure Mean 110 119 Pulse Oximetry 99 Oxygen Delivery Method Oxygen Flow Rate Sepsis Recent Fever Within 48 Hours Sepsis New/Unexplained Change in Mental Status Sepsis Action Taken by Nursing 10/04/23 18:10 Temperature Temperature Source Pulse Rate Pulse Rate from SpO2 Sensor Respiratory Rate Respiratory Effort / Characteristics Respiratory Depth Respiratory Pattern Blood Pressure Blood Pressure Mean Pulse Oximetry Oxygen Delivery Method Room Air Oxygen Flow Rate Sepsis Recent Fever Within 48 Hours Sepsis New/Unexplained Change in Mental Status Sepsis Action Taken by [facility] Medications Current Medication List: was personally reviewed by me Laboratory Data Attestation: I reviewed the patient's lab results. 10/04/23 15:14 10/04/23 15:14 Lab Results 10/04/23 10/04/23 10/04/23 Range/Units 15:14 15:15 17:26 WBC 9.54 (4.8-10.8) K/ul RBC 5.04 (4.20-5.40) M/uL Hgb 13.0 (12.0-16.0) g/dl Hct 41.1 (37.0-47.0) % MCV 81.5 (80.0-100.0) fL MCH 25.8 (25.0-34.0) pg MCHC 31.6 L (32.0-36.0) g/dL RDW Std Deviation 49.9 H (36.4-46.3) fL RDW Coeff of Ese 17.2 H (11.5-14.5) % Plt Count 537 H (130-400) K/uL MPV 10.8 (9.4-12.4) fL Immature Gran % (Auto) 1.0 % Neut % (Auto) 70.3 % Lymph % (Auto) 15.2 % [place] % (Auto) 9.6 % Eos % (Auto) 3.0 % Baso % (Auto) 0.9 % Neut # (Auto) 6.69 H (1.40-6.50) K/uL Lymph # (Auto) 1.45 (1.20-3.40) K/uL Fountain # (Auto) 0.92 H (0.11-0.59) K/uL Eos # (Auto) 0.29 (0.00-0.50) K/uL Baso # (Auto) 0.09 (0.00-0.20) K/uL Immature Gran # (Auto) 0.10 (0.01-0.20) K/uL PT 11.2 (9.0-12.0) Seconds INR 1.0 (0.9-1.1) APTT 27 (21-31) Seconds PTT Ratio 1.0 Sodium 140 (136-145) mmol/L Potassium 3.6 (3.5-5.1) mmol/L Chloride 107 (98-107) mmol/L Carbon Dioxide 23 (21-32) mmol/L Anion Gap 10 (3-11) BUN 10 (6-23) mg/dl Creatinine 1.00 (0.6-1.2) mg/dl Est Cr Clr Drug Dosing 53.9 ml/min Est GFR ( Amer) 64.3 ml/min Est GFR (Non-Af Amer) 55.5 ml/min BUN/Creatinine Ratio 10.0 (10-20) Glucose 130 H (70-99(Fasting)) mg/dl Calcium 8.9 (8.6-10.3) mg/dl Magnesium 1.9 (1.7-2.4) mg/dl Total Bilirubin 0.5 (0.2-1.0) mg/dl AST 22 (13-39) U/L ALT 9 (7-52) U/L Alkaline Phosphatase 114 H (34-104) U/L Troponin I High Sens 184.7 H* 212.9 H* (0-14) pg/ml B-Natriuretic Peptide 979 H (0-100) pg/ml Total Protein 6.7 (6.0-8.3) gm/dl Albumin 3.9 (3.4-5.0) gm/dl Globulin 2.8 (2.5-4.0) gm/dl Albumin/Globulin Ratio 1.4 (0.9-2) SARS-CoV-2 (PCR) NEGATIVE (Negative) Influenza Type A (PCR) Negative (Neg) Influenza Type B (PCR) Negative (Neg) RSV (RT-PCR) Negative (Neg) Administered Medications Discontinued Medications Furosemide (Furosemide 40 Mg/4 Ml Vial) 40 mg IV ONE ONE Stop: 10/04/23 16:05 Last Admin: 10/04/23 16:53 Dose: 40 mg Documented By: HS Imaging Data Radiologist's Impression: Chest X-Ray 10/04/23 15:27 XR chest 1V portable HISTORY: Chest pain, nonspecific COMPARISON: Chest 08/29/2023. FINDINGS: No pneumothorax. No pleural effusions. The heart remains mildly enlarged. Cardiomegaly and chronic interstitial thickening persists. This suggests pulmonary fibrosis. No new focal lung consolidations to suggest a pneumonia. No evidence for pulmonary edema. No acute fractures identified. IMPRESSION: 1. No acute process within the chest. 2. Cardiomegaly and chronic interstitial lung disease/fibrosis again noted. ACT 112: Negative or not required by law. Electronically signed by: Lalo Vanegas M.D. 10/04/2023 4:02 PM Discharge Plan Visit Data Chief Complaint: Shortness of Breath/Dyspnea ED Provider: Jose Maria Grossman Discharge Problem: SOB (shortness of breath), Elevated troponin, CHF (congestive heart failure), Pedal edema Patient Disposition: Admitted As Inpatient Condition: Fair Discharge Instructions Interventions: ED Discharge Assessment Last Done: 10/04/23 18:10 Forms Stand Alone Forms: My [facility] [place] [employer] [place] Prescriptions Prescriptions: No Action amitriptyline 25 mg tablet 25 mg PO HS Qty: 90 3RF sildenafil (pulm.hypertension) [Revatio] 20 mg tablet 20 mg PO TID Qty: 90 3RF Rx Instructions: TAKES 1200, QPM, & HS pantoprazole 40 mg tablet,delayed release (DR/EC) 40 mg PO BID Qty: 30 2RF levothyroxine 137 mcg tablet 137 mcg PO QAM buspirone 10 mg tablet 10 mg PO TID cyanocobalamin (vitamin B-12) 1,000 mcg capsule 1,000 mcg PO QAM gabapentin 100 mg Capsule 100 mg PO BID Rx Instructions: TAKES 100 MG AT 1200 & HS topiramate 100 mg Tablet 100 mg PO BID Rx Instructions: TAKES AT 1200 & HS lamotrigine 150 mg tablet 150 mg PO HS acetaminophen [Tylenol] 325 mg Tablet 650 mg PO QID PRN (Reason: Pain) prednisone 10 mg tablet 10 mg PO DAILY mycophenolate mofetil 250 mg capsule 750 mg PO BID Rx Instructions: TAKES AT 1200 & HS furosemide 20 mg tablet 20 mg PO DAILY Rx Instructions: ORDER 10/04/23 FOR 5 DAYS, EXT MED HX---20 MG DAILY ORDERED 09/04/23 albuterol sulfate 90 mcg/actuation HFA aerosol inhaler 2 inh inhalation Q4H PRN (Reason: shortness of breath or wheezing) Referrals Referrals: Ted Singh MD [Primary Care Provider] - Discharge Problem: CHF (congestive heart failure) Qualifiers: Heart failure type: unspecified Heart failure chronicity: acute on chronic Q ualified Code(s): I50.9 - Heart failure, unspecified
[2023-10-04 16:27] LABS: Magnesium 1.9 mg/dl (1.7-2.4)
[2023-10-04 16:30] LABS: Influenza A virus by PCR Negative (Neg); Influenza B virus by PCR Negative (Neg); RSV by PCR Negative (Neg); SARS CoV2 RNA(COVID-19) Ceph NEGATIVE (Negative)
--- NOTE | 2023-10-04 17:42 | History & Physical Report ---
Date of Service October 04, 2023 Assessment & Plan (1) Heart failure with reduced ejection fraction: Plan: Acute on chronic HFrEF, here with significant dyspnea, requiring more O2 than usual, elevated BNP, wheezing on exam cardiac vs pulm related ECHO 06/2023 with reduced EF 35-40%, mild Pulm HTN Heart failure related to fibrotic lung disease and LBBB. No WMAs to suggest ischemic disease -admit to PCU for tele monitoring -diurese with lasix 40mg IV bid -replace K+ and follow BMP -continue supplemental O2 to keep POx> 90% -daily weights, I/Os, fluid restrict, low sodium diet -should be on Toprol XL, Entresto or ACEi/ARB, and aldactone as well as [id number] adding on while here (2) Acute and chronic respiratory failure: Plan: on 5LNC at home, was dropping POx to the 70-80s with exertion prior to admission 2/2 CHF continue O2 to keep POx>90% diuresing (3) Elevated troponin: Plan: trop 184 on admission, with chest pressure associated with chest congestion/CHF ECG without ischemic changes trend troponin check ECHO only if troponin trends up significantly (4) Pulmonary fibrosis: Plan: with wheezing on exam, possibly due to cardiac wheezing vs pulm typically on prednisone 10mg daily although pt reports she is not taking any prednisone currently at home start IV SOlu Medrol 60mg IV q12 Duonebs prn (5) Major depressive disorder: Plan: continue Buspar, lamictal (6) Pulmonary hypertension: Plan: continue home Revatio, mycophenolate continue O2 (7) Hypertension: Plan: BPs controlled continue diuresis (8) Peripheral neuropathy: Plan: continue gabapentin, Elavil (9) PSVT (paroxysmal supraventricular tachycardia): Plan: not currently on beta blockers monitor on tele (10) GERD (gastroesophageal reflux disease): Plan: continue PPI (11) IBS (irritable bowel syndrome): Plan: continue Elavil (12) Hypothyroidism: Plan: TSH here normal in 08/2023 continue home LT4 (13) Bipolar disorder: Plan: continue home meds Plan DVT proph- Lovenox Dispo-admit to PCU DNR/DNI as d/w patient. She would like her daughter to make decisions for her if unable to do so History of Present Illness Chief Complaint: SOB Primary Care Provider: Ted Singh MD This pt is a 73 year old female w/ a h/o Pulm fibrosis/ILD on 5L NC chronic oxygen therapy, Pulm HTN, HFrEF, paroxysmal SVT, IBS, DMII, previous CVA, GERD, bipolar disorder, and hypothyroidism who presents to the hospital with progressively worsening shortness of breath and wheezing over the last 2 weeks.She is not sure if she gained weight at home. She is coughing up her usual amount of sputum and denies hemoptysis, fevers, or chills. She has noticed increased wheezing which is not improved with nebs. She noticed her POx was going in to the 70-80s with exertion at home and she felt like she was going to collapse and had chest pressure with exertion. Allergies Allergy/AdvReac Type Severity Reaction Status Date / Time latex Allergy Intermediate Rash, hand Verified 10/04/23 17:12 swelling Sulfa (Sulfonamide Allergy Intermediate Rash Verified 10/04/23 17:12 Antibiotics) Penicillins Allergy Unknown Unknown Verified 10/04/23 17:12 reaction (as teenager) morphine AdvReac Intermediate Anxiety Verified 10/04/23 17:12 Home Medications Medication Instructions Recorded Confirmed Type amitriptyline 25 mg tablet 25 mg PO HS #90 tabs 09/26/21 10/04/23 Rx buspirone 10 mg tablet 10 mg PO TID 03/02/23 10/04/23 History levothyroxine 137 mcg tablet 137 mcg PO QAM 03/02/23 10/04/23 History acetaminophen 325 mg tablet 650 mg PO QID PRN Pain 06/14/23 10/04/23 History (Tylenol) lamotrigine 150 mg tablet 150 mg PO HS 06/14/23 10/04/23 History cyanocobalamin (vitamin B-12) 1,000 mcg PO QAM 08/06/23 10/04/23 History 1,000 mcg capsule gabapentin 100 mg capsule 100 mg PO BID 08/06/23 10/04/23 History topiramate 100 mg tablet 100 mg PO BID 08/06/23 10/04/23 History pantoprazole 40 mg tablet,delayed 40 mg PO BID #30 tabs 08/16/23 10/04/23 Rx release sildenafil (pulm.hypertension) 20 20 mg PO TID #90 tabs 08/16/23 10/04/23 Rx mg tablet (Revatio) prednisone 10 mg tablet 10 mg PO DAILY 08/29/23 10/04/23 History albuterol sulfate 90 mcg/actuation 2 inh inhalation Q4H PRN shortness 10/04/23 10/04/23 History aerosol inhaler of breath or wheezing furosemide 20 mg tablet 20 mg PO DAILY 10/04/23 10/04/23 History mycophenolate mofetil 250 mg 750 mg PO BID 10/04/23 10/04/23 History capsule Past Med/Surg History Medical History Major depressive disorder Leukocytosis Elevated brain natriuretic peptide (BNP) level Pedal edema Fluid overload Exertional dyspnea Elevated troponin Secondary pulmonary hypertension Congestive heart failure Pulmonary edema Chronic cough Diffuse myofascial pain syndrome Chronic low back pain Interstitial lung disease follows with [facility] (PRN) Diabetes mellitus type II, controlled pt denies Arrhythmia ? hx of a. fib- on Eliquis per cardiology -- hx of having a Loop Recorder in 2021 with no evidence of A.fib on the recorder at the time. no current treatment On home oxygen therapy 2-3L at rest/5L with activity Anxiety and depression History of blood transfusion Post-op 2016 Pulmonary hypertension Moderately elevated estimated RVSP (RVSP 40-50mmhg) per 01/19/22 echo IPF (idiopathic pulmonary fibrosis) PSVT (paroxysmal supraventricular tachycardia) pt denies/unaware Cerebrovascular accident (CVA) of left thalamus 06/11/2021 (post-op Right TKA) > POD#1 ischemic left thalamic stroke CVA with right sided weakness History of COVID-19 12/2020 > fully recovered Hyperglycemia Hx mild hyperglycemia under surveillance by PCP. Most recent A1C 5.6% (06/12/21) -- pt reports no continued issues at this time (08/06/2023) Shortness of breath Left bundle branch block [facility] cardi[facility] IBS (irritable bowel syndrome) Intermittent flares - takes Amitriptyline and Protonix for GI pain control Spinal stenosis Hypothyroidism Osteopenia GERD (gastroesophageal reflux disease) Post traumatic stress disorder Bipolar disorder Surgical History Status post right knee replacement (~05/2021) History of cataract surgery S/P revision of total knee 03/2022 at [facility] (Right TKA) Status post bronchoscopy With BAL 08/01/[address] Romero at [facility] History of loop recorder has since been removed in 09/2022 at [facility] History of total knee replacement Right TKA (06/10/21): SAB at L4-5 (x1 attempt) + PNB at [facility] History of surgery Right Quadriceps Repair (06/14/21): LMA#4 at [facility]. No issues noted per post-op anesthesia progress note. History of anesthesia reaction "Slow to wake" x1 episode after 3 hour surgery in 2017- she states she became violent and upset, hallucinated while waking up. Began to calm down once she heard her daughter's voice. History of hernia surgery History of colonoscopy History of arthroscopy R/L knee History of cholecystectomy Status post gastric banding surgery + removal History of hysterectomy Family History Family/Other No problems noted. Mother Colon cancer Dementia Father , at age 79 from mesothelioma. Mesothelioma Sister No problems noted. Sister No problems noted. Son No problems noted. Daughter No problems noted. Other Family history of diabetes mellitus in father Denies family history of Ovarian cancer Prostate cancer Myocardial infarction Breast cancer Social History Smoking Status: Former smoker Tobacco Type: Cigarettes packs per day: 1; Second Hand Exposure: No; Do You Dip or Chew Tobacco: No; Hx Alcohol Use: Yes Alcohol type: wine Hx Substance Use: No Preferred Language: Bengali Communication Ability: Effective Visual Impairment: No Limitations Pastry Mixer Required: No Beliefs That Will Affect Care: None marital status: Single Current Living Situation: Alone Current Living Situation Comment: "[facility] building, alone" current occupational status: retired Feels Safe at Home: Yes Childhood Exposure to Second-Hand Smoke: Yes Dental Care, Regularly: Yes Physical Activity Frequency: Daily Seatbelt Use: always Sunscreen Use: No Assistive Devices: Glasses, Oxygen - Continuous, Walker and Wheelchair Review of Systems 2 Review of Systems: All systems reviewed & are unremarkable except as noted in HPI & below Physical Exam 2 Constitutional: WD/WN, vitals as above Eyes: PERRL, conjunctivae normal, anicteric sclerae ENMT: external ear and nose normal, oropharynx normal Neck: trachea midline, no thyromegaly Respiratory: normal respiratory effort and + cough Auscultation: + crackles (in lower and middle lung rubio) and + wheezes (bilat, exp); no rhonchi Cardiovascular: Rate/Rhythm: regular rate and regular rhythm Heart Sounds: no murmur Extremities: + edema (1+ pitting edema to knees bilat) Chest (Breasts): Chest: normal inspection of chest Gastrointestinal (Abdomen): normal bowel sounds, soft, nontender, no hepatosplenomegaly Musculoskeletal: Extremities: extremities normal to inspection; no cyanosis and no clubbing Skin: no rashes, warm and dry (except chronic venous stasis changes legs bilat) Neurologic: moves all extremities and awake; no focal motor deficits Psychiatric: Orientation: alert, oriented x 3 and cooperative Affect: + anxious affect Results & Data Results & Data Vital Signs (Past 12 Hours) Vital Signs Temp Pulse Resp BP Pulse Ox O2 Del Method O2 Flow Rate 10/04/23 15:34 123 H 10/04/23 15:08 97 Nasal Cannula 5 10/04/23 15:08 36.5 C 116 H 20 134/93 97 Room Air Laboratory Results 10/04/23 15:14 10/04/23 15:14 Diagnostic Findings Chest X-Ray 10/04/23 15:27 XR chest 1V portable HISTORY: Chest pain, nonspecific COMPARISON: Chest 08/29/2023. FINDINGS: No pneumothorax. No pleural effusions. The heart remains mildly enlarged. Cardiomegaly and chronic interstitial thickening persists. This suggests pulmonary fibrosis. No new focal lung consolidations to suggest a pneumonia. No evidence for pulmonary edema. No acute fractures identified. IMPRESSION: 1. No acute process within the chest. 2. Cardiomegaly and chronic interstitial lung disease/fibrosis again noted. ACT 112: Negative or not required by law. Electronically signed by: Lalo Vanegas M.D. 10/04/2023 4:02 PM Code Status & VTE Plan Code Status DNR/DNI VTE Prophylaxis Plan VTE Prophylaxis will be ordered: Yes PG Care Time/CCT Total # of Minutes Spent Total Time Spent with Patient: Total time spent is greater than 50% in coordination of care (as documented) at patient's floor/unit and/or counseling patient: Coding Level of Care Code 07932 INT INP/OBS CARE MIN Diagnoses Heart failure with reduced ejection fraction I50.20 Acute and chronic respiratory failure J96.20 Elevated troponin R79.89 Pulmonary fibrosis J84.10 Major depressive disorder F32.9 Pulmonary hypertension I27.20 Hypertension I10 Hypertension type: unspecified Peripheral neuropathy G62.9 PSVT (paroxysmal supraventricular tachycardia) I47.1 GERD (gastroesophageal reflux disease) K21.9 IBS (irritable bowel syndrome) K58.9 Hypothyroidism E03.9 Bipolar disorder F31.9 (7) Hypertension Hypertension type: unspecified Qualified Code(s): I10 - Essential (primary) hypertension
[2023-10-04] MEDS ORDERED: ACETAMINOPHEN 325 MG TAB PO PRN (18:42)
[2023-10-04] MEDS ORDERED: POTASSIUM CHLORIDE CRTAB 20 MEQ TABCR PO STA (18:42)
[2023-10-04] MEDS: ENOXAPARIN INJ 40 MG/0.4 ML SYR SQ SCH (20:59)
[2023-10-04] MEDS ORDERED: methylPREDNISolone 60 MG in SYRINGE 0 ML IV SCH (21:00)
[2023-10-04] MEDS: busPIRone 5 MG TAB PO SCH (21:04)
[2023-10-04] MEDS: AMITRIPTYLINE HCL 25 MG TAB PO SCH (21:04)
[2023-10-04] MEDS: GABAPENTIN 100 MG CAP PO SCH (21:05)
[2023-10-04] MEDS: lamoTRIgine 100 MG TAB PO SCH (21:07)
[2023-10-04] MEDS: MYCOPHENOLATE MOFETIL 250 MG CAP PO SCH (21:12)
[2023-10-04] MEDS: PANTOprazole 40 MG TAB PO SCH (21:13)
[2023-10-04] MEDS: SILDENAFIL CITRATE 20 MG TABLET PO SCH (21:13)
[2023-10-04] MEDS: TOPIRAMATE 100 MG TAB PO SCH (21:14)
[2023-10-05 05:54] LABS: Basophils # (auto) 0.08 K/uL (0.00-0.20); Eosinophils # (auto) 0.29 K/uL (0.00-0.50); Eosinophils % (auto) 3.5 %; Hematocrit (blood only) 37.1 % (37.0-47.0); Hemoglobin 11.7 g/dl (12.0-16.0); Immature Granulocytes # (auto) 0.07 K/uL (0.01-0.20); Immature Granulocytes % (auto) 0.8 %; Lymphocytes # (auto) 1.81 K/uL (1.20-3.40); Lymphocytes % (auto) 21.8 %; Mean Corpuscular Hemoglobin 25.7 pg (25.0-34.0); Mean Corpuscular Hgb Conc 31.5 g/dL (32.0-36.0); Mean Corpuscular Volume 81.4 fL (80.0-100.0); Mean Platelet Volume 10.5 fL (9.4-12.4); Monocytes # (auto) 1.04 K/uL (0.11-0.59); Monocytes % (auto) 12.5 %; Neutrophils # (auto) 5.03 K/uL (1.40-6.50); Neutrophils % (auto) 60.4 %; Platelet Count 404 K/uL (130-400); RDW Coefficient of Variation 17.1 % (11.5-14.5); RDW Standard Deviation 50.7 fL (36.4-46.3); Red Blood Count 4.56 M/uL (4.20-5.40); White Blood Count 8.32 K/ul (4.8-10.8)
[2023-10-05 06:08] LABS: BUN Creatinine Ratio 8.8 (10-20); Calcium 8.2 mg/dl (8.6-10.3); Creatinine Clr Calc Pharmacy 42.6 ml/min; Est GFR (African American) 49.1 ml/min; Est GFR (Non-African American) 42.3 ml/min; Magnesium 1.9 mg/dl (1.7-2.4); Potassium 3.1 mmol/L (3.5-5.1)
[2023-10-05] MEDS: PANTOprazole 40 MG TAB PO SCH ×2 (06:17→21:25)
[2023-10-05] MEDS: LEVOTHYROXINE SODIUM 137 MCG TABLET PO SCH (06:17)
[2023-10-05] MEDS ORDERED: POTASSIUM CHLORIDE CRTAB 20 MEQ TABCR PO STA ×2 (08:30→18:43)
[2023-10-05] MEDS ORDERED: FUROSEMIDE 40 MG TAB PO SCH (09:00)
[2023-10-05] MEDS: FUROSEMIDE 40 MG/4 ML VIAL IV SCH ×2 (09:07→17:39)
[2023-10-05] MEDS: CYANOCOBALAMIN (B-12) 500 MCG TABLET PO SCH (09:07)
[2023-10-05] MEDS: predniSONE 10 MG TABLET PO SCH ×2 (09:08→18:49)
[2023-10-05] MEDS: ENOXAPARIN INJ 40 MG/0.4 ML SYR SQ SCH ×2 (09:08→21:21)
[2023-10-05] MEDS: busPIRone 5 MG TAB PO SCH ×3 (09:08→21:20)
[2023-10-05] MEDS: TOPIRAMATE 100 MG TAB PO SCH ×2 (12:56→21:27)
[2023-10-05] MEDS: SILDENAFIL CITRATE 20 MG TABLET PO SCH ×3 (12:57→21:26)
[2023-10-05] MEDS: MYCOPHENOLATE MOFETIL 250 MG CAP PO SCH ×2 (12:57→21:24)
[2023-10-05] MEDS: GABAPENTIN 100 MG CAP PO SCH ×2 (12:57→21:22)
--- NOTE | 2023-10-05 17:09 | XCELERA ---
[id number] \\[id number]
--- NOTE | 2023-10-05 17:35 | Hospitalist Progress Note ---
Date of Service October 05, 2023 Assessment & Plan (1) Heart failure with reduced ejection fraction: Plan: Acute on chronic HFrEF, here with significant dyspnea, requiring more O2 than usual, elevated BNP, wheezing on exam cardiac vs pulm related ECHO 06/2023 with reduced EF 35-40%, mild Pulm HTN Heart failure related to fibrotic lung disease and LBBB. No WMAs to suggest ischemic disease Repeat echocardiogram on 10/05 now with further reduced EF to 25-30% with global hypokinesis, moderate LVH, mild MR, mild to moderate PHTN With persistent tachycardia-question of tachycardia is leading to further reduction in EF Lower blood pressures likely due to adrenal insufficiency as she has suddenly stopped taking her long-term prednisone in the last couple of weeks Weight is down 2 kg since admission, net negative at least 1 L, dyspnea improving, creatinine slight rise today -Continue tele monitoring -Continue to diurese with lasix 40mg IV bid cautiously but may need to back off if creatinine rises further -replace K+ with 40 mill equivalents p.o. twice daily and give 1 g of IV magnesium and follow BMP, magnesium level -Start Toprol-XL 25 mg daily -Consideration to be made for Entresto, spironolactone, and SGLT2 if blood pressure and renal function will allow -Refer to CHF clinic -continue supplemental O2 to keep POx> 90% -daily weights, I/Os, fluid restrict, low sodium diet -Consult cardiology for further input (2) Acute and chronic respiratory failure: Plan: on 5LNC at home, was dropping POx to the 70-80s with exertion prior to admission 2/2 CHF continue O2 to keep POx>90% diuresing Improving (3) Elevated troponin: Plan: trop 184 on admission, with chest pressure associated with chest congestion/CHF Troponin peaked after admission at 243 ECG without ischemic changes Echo without wall motion abnormalities (4) Pulmonary fibrosis: Plan: with wheezing on exam, possibly due to cardiac wheezing vs pulm-now resolved typically on prednisone 10mg daily although pt reports she is not taking any prednisone currently at home-she was mistaken about this and thought she was supposed to stop it altogether. Pulmonary simply wanted her to start weaning down on it Discontinue IV steroids which she did not take anyway and resume prednisone 10 mg p.o. daily Duonebs prn (5) Major depressive disorder: Plan: continue Buspar, lamictal, Topamax (6) Pulmonary hypertension: Plan: continue home Revatio, mycophenolate continue O2 (7) Hypertension: Plan: BPs controlled to mildly low likely from adrenal insufficiency-restarting prednisone continue diuresis (8) Peripheral neuropathy: Plan: continue gabapentin, Elavil (9) PSVT (paroxysmal supraventricular tachycardia): Plan: not currently on beta blockers-starting Toprol-XL as above Continue to monitor on tele Consult cardiology as she is having persistent tachycardia in the [id number] sinus tachycardia but will await cardiology opinion (10) GERD (gastroesophageal reflux disease): Plan: continue PPI (11) IBS (irritable bowel syndrome): Plan: continue Elavil (12) Hypothyroidism: Plan: TSH here normal in 08/2023 continue home LT4 (13) Bipolar disorder: Plan: continue home meds as above Plan DVT proph- Lovenox Dispo-continued stay on PCU DNR/DNI as d/w patient. She would like her daughter to make decisions for her if unable to do so I discussed her care at length with her daughter on the phone on 10/05 Admission and Anticipated Discharge Date Admission Date: October 04, 2023 Subjective Patient feeling better, less short of breath at rest. No further chest pain but does feel a sense of "stress" in her chest all day long. She reports that she thought she was to stop taking prednisone altogether which is why she refused to take it today. I discussed her care with her batch heat treat operator who said he told her he would start weaning it down but he wanted her to stay on 10 mg daily. Telemetry with sinus tachycardia with rates persistently in the 1 teens to 120s. Physical Exam Constitutional: WD/WN, vitals as above Neck: trachea midline, no thyromegaly Respiratory: normal respiratory effort; no cough Auscultation: + crackles (in lower and middle lung rubio) and + wheezes (bilat, exp); no rhonchi Cardiovascular: Rate/Rhythm: regular rhythm and + tachycardic Heart Sounds: no murmur Extremities: + edema (1+ pitting edema to knees bilat) Chest (Breasts): Chest: normal inspection of chest Gastrointestinal (Abdomen): normal bowel sounds, soft, nontender, no hepatosplenomegaly Musculoskeletal: Extremities: extremities normal to inspection; no cyanosis and no clubbing Skin: no rashes, warm and dry (except chronic venous stasis changes legs bilat) Neurologic: moves all extremities and awake; no focal motor deficits Psychiatric: Orientation: alert, oriented x 3 and cooperative Results & Data Results & Data Vital Signs (Past 12 Hours) Vital Signs Temp Pulse Pulse Resp BP Pulse Ox O2 Del Method 10/05/23 11:14 36.8 C 110 H 21 96/67 L 96 Nasal Cannula 10/05/23 08:00 120 H 10/05/23 08:00 Nasal Cannula 10/05/23 07:41 36.9 C 116 H 21 113/82 95 Nasal Cannula O2 Flow Rate 10/05/23 11:14 5 10/05/23 08:00 10/05/23 08:00 5 10/05/23 07:41 5 Laboratory Results CBC, BMP, magnesium, troponin reviewed Diagnostic Findings Echo reviewed PG Care Time/CCT Total # of Minutes Spent Total Time Spent with Patient: Total time spent is greater than 50% in coordination of care (as documented) at patient's floor/unit and/or counseling patient: Coding Level of Care Code 01687 SUB INP/OBS CARE 3/50MIN Diagnoses Heart failure with reduced ejection fraction I50.20 Acute and chronic respiratory failure J96.20 Elevated troponin R79.89 Pulmonary fibrosis J84.10 Major depressive disorder F32.9 Pulmonary hypertension I27.20 Hypertension I10 Hypertension type: unspecified Peripheral neuropathy G62.9 PSVT (paroxysmal supraventricular tachycardia) I47.1 GERD (gastroesophageal reflux disease) K21.9 IBS (irritable bowel syndrome) K58.9 Hypothyroidism E03.9 Bipolar disorder F31.9 (7) Hypertension Hypertension type: unspecified Qualified Code(s): I10 - Essential (primary) hypertension
[2023-10-05] MEDS ORDERED: MAGNESIUM SULFATE / D5W 1 GM/100 ML BAG IV ONE (18:43)
[2023-10-05] MEDS: METOPROLOL SUCC 25MG EXT REL TAB PO SCH (18:49)
[2023-10-05] MEDS ORDERED: Nursing to Pharmacy Communication SCH (19:15)
[2023-10-05] MEDS ORDERED: POTASSIUM CHLORIDE 10 MEQ TABCR PO STA (19:22)
[2023-10-05] MEDS: AMITRIPTYLINE HCL 25 MG TAB PO SCH (21:19)
[2023-10-05] MEDS: lamoTRIgine 100 MG TAB PO SCH (21:23)
--- NOTE | 2023-10-06 06:08 | Electrocardiogram Report ---
Test Reason : Blood Pressure : / mmHG Vent. Rate : 109 BPM Atrial Rate : 109 BPM P-R Int : 176 ms QRS Dur : 128 ms QT Int : 370 ms P-R-T Axes : 047 -07 045 degrees QTc Int : 498 ms Sinus tachycardia with occasional Premature ventricular complexes Left bundle branch block Abnormal ECG When compared with ECG of 29-AUG-2023 16:42, Fusion complexes are no longer Present Premature ventricular complexes are now Present Premature supraventricular complexes are no longer Present Confirmed by Jamie Morrow ([id number]) on 10/06/2023 6:08:17 AM Referred By: Confirmed By:Jamie Morrow
[2023-10-06] MEDS: LEVOTHYROXINE SODIUM 137 MCG TABLET PO SCH (06:18)
--- NOTE | 2023-10-06 06:39 | Electrocardiogram Report ---
Test Reason : Blood Pressure : / mmHG Vent. Rate : 116 BPM Atrial Rate : 116 BPM P-R Int : 098 ms QRS Dur : 134 ms QT Int : 420 ms P-R-T Axes : 040 -10 038 degrees QTc Int : 583 ms Sinus tachycardia with short MN Left bundle branch block Abnormal ECG When compared with ECG of 04-OCT-2023 15:06, Premature ventricular complexes are no longer Present Confirmed by Jamie Morrow ([id number]) on 10/06/2023 6:38:55 AM Referred By: REFERRED SELF Confirmed By:Jamie Morrow
[2023-10-06 07:08] LABS: BUN Creatinine Ratio 16.3 (10-20); Calcium 8.6 mg/dl (8.6-10.3); Creatinine Clr Calc Pharmacy 42.6 ml/min; Est GFR (Non-African American) 43.2 ml/min; Magnesium 2.3 mg/dl (1.7-2.4); Potassium 3.9 mmol/L (3.5-5.1)
[2023-10-06] MEDS: busPIRone 5 MG TAB PO SCH ×3 (08:24→20:18)
[2023-10-06] MEDS: FUROSEMIDE 40 MG/4 ML VIAL IV SCH ×2 (08:24→17:31)
[2023-10-06] MEDS: PANTOprazole 40 MG TAB PO SCH ×2 (08:24→20:15)
[2023-10-06] MEDS: CYANOCOBALAMIN (B-12) 500 MCG TABLET PO SCH (08:24)
[2023-10-06] MEDS: METOPROLOL SUCC 25MG EXT REL TAB PO SCH ×2 (08:24→20:01)
[2023-10-06] MEDS: ENOXAPARIN INJ 40 MG/0.4 ML SYR SQ SCH ×2 (08:24→20:09)
[2023-10-06] MEDS: predniSONE 10 MG TABLET PO SCH (08:24)
[2023-10-06] MEDS: MYCOPHENOLATE MOFETIL 250 MG CAP PO SCH ×2 (12:17→20:10)
[2023-10-06] MEDS: GABAPENTIN 100 MG CAP PO SCH ×2 (12:17→20:10)
[2023-10-06] MEDS: TOPIRAMATE 100 MG TAB PO SCH ×2 (13:12→20:15)
[2023-10-06] MEDS: SILDENAFIL CITRATE 20 MG TABLET PO SCH ×3 (13:48→20:11)
--- NOTE | 2023-10-06 17:54 | Hospitalist Progress Note ---
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 No WMAs to suggest ischemic disease Repeat echocardiogram on 10/05 now with further reduced EF to 25-30% with global hypokinesis, moderate LVH, mild MR, mild to moderate PHTN With persistent atrial tachycardia-question of tachycardia is leading to further reduction in EF Lower blood pressures likely due to adrenal insufficiency as she has suddenly stopped taking her long-term prednisone in the last couple of weeks-blood pressures improved with restarting prednisone Weight is down 4.6 kg since admission, net negative at least 2.3L as she does have urinary incontinence as well, dyspnea improving, creatinine stable -Continue tele monitoring -Continue to diurese with lasix 40mg IV bid cautiously but may need to back off if creatinine rises further -replace electrolytes as needed to keep optimal-follow BMP, magnesium level -Continues with tachycardia-increase Toprol-XL to 50 mg twice daily -Consideration to be made for Entresto, spironolactone, and SGLT2 if blood pressure and renal function will allow -Refer to CHF clinic -continue supplemental O2 to keep POx> 90% -daily weights, I/Os, fluid restrict, low sodium diet -Consult cardiology for further input-awaiting consult (2) Acute and chronic respiratory failure: Plan: on 5LNC at home, was dropping POx to the 70-80s with exertion prior to admission 2/2 CHF continue O2 to keep POx>90% diuresing and improving (3) Elevated troponin: Plan: Myocardial demand ischemia trop 184 on admission, with chest pressure associated with chest congestion/CHF Troponin peaked after admission at 243 ECG without ischemic changes Echo without wall motion abnormalities (4) Pulmonary fibrosis: Plan: with wheezing on exam, likely due to cardiac wheezing as pulmonary fibrosis typically does not cause wheezing She was supposed to be on prednisone 10mg daily but she had stopped taking it a couple of weeks ago-she thought she was supposed to stop it altogether. Pulmonary simply wanted her to start weaning down on it Continue prednisone 10 mg p.o. daily Duonebs prn Continue mycophenolate 750 Mg p.o. twice daily Sildenafil is relatively contraindicated in HFrEF as per my discussion with pulmonology-wean off sildenafil-decrease dose to 10 Mg p.o. 3 times daily for 3 days, then 10 Mg p.o. twice daily for 3 days, then stop Follows with Dr. Jimenez as an outpatient Continue supplemental O2 (5) Pulmonary hypertension: Plan: Secondary to pulmonary fibrosis (6) Hypertension: Plan: BPs controlled to mildly low likely from adrenal insufficiency-restarted prednisone and now improved continue diuresis and metoprolol (7) Peripheral neuropathy: Plan: continue gabapentin, Elavil (8) PSVT (paroxysmal supraventricular tachycardia): Plan: Was not currently on beta blockers-started Toprol-XL as above Continue to monitor on tele Consult cardiology as she is having persistent tachycardia in the [id number] atrial tachycardia but will await cardiology opinion (9) GERD (gastroesophageal reflux disease): Plan: continue PPI (10) IBS (irritable bowel syndrome): Plan: continue Elavil (11) Hypothyroidism: Plan: TSH here normal in 08/2023 continue home LT4 (12) Bipolar disorder: Plan: continue Buspar, lamictal, Topamax Plan DVT proph- Lovenox Dispo-continued stay on PCU. Patient lives alone in senior care apartments and currently does not have her usual caregivers during the day. PT/OT consults placed. She would prefer to go home with home health but will await evaluations. She would like to be discharged on Tuesday 10/09 so that she can get to her dental appointment on 10/10 as scheduled DNR/DNI as d/w patient. She would like her daughter to make decisions for her if unable to do so I discussed her care at length with her daughter on the phone on 10/05. Daughter would like updates from time to time from attending provider Admission and Anticipated Discharge Date Admission Date: October 04, 2023 Subjective Feeling a little bit better but still has a cough and some wheezing. Has not been out of bed much. Telemetry with normal sinus rhythm and atrial tachycardia, rates in the 80s to 1 teens Physical Exam Constitutional: WD/WN, vitals as above Neck: trachea midline, no thyromegaly Respiratory: normal respiratory effort; no cough Auscultation: + crackles (in lower and middle lung rubio) and + wheezes (bilat, exp); no rhonchi Cardiovascular: Rate/Rhythm: regular rate, regular rhythm and + tachycardic Heart Sounds: no murmur Extremities: + edema (Trace + pitting edema to knees bilat, improved) Chest (Breasts): Chest: normal inspection of chest Gastrointestinal (Abdomen): normal bowel sounds, soft, nontender, no he patosplenomegaly Musculoskeletal: Extremities: extremities normal to inspection; no cyanosis and no clubbing Skin: no rashes, warm and dry Neurologic: moves all extremities and awake; no focal motor deficits Psychiatric: Orientation: alert, oriented x 3 and cooperative Results & Data Results & Data Vital Signs (Past 12 Hours) Vital Signs Temp Pulse Pulse Resp BP Pulse Ox O2 Del Method 10/06/23 16:00 36.8 C 87 16 129/75 96 Nasal Cannula 10/06/23 11:00 36.6 C 109 H 18 110/63 97 Nasal Cannula 10/06/23 08:00 110 H 10/06/23 08:00 Nasal Cannula 10/06/23 07:00 36.7 C 124 H 20 119/74 96 Nasal Cannula O2 Flow Rate 10/06/23 16:00 5 10/06/23 11:00 5 10/06/23 08:00 10/06/23 08:00 5 10/06/23 07:00 5 Laboratory Results BMP, magnesium reviewed PG Care Time/CCT Total # of Minutes Spent Total Time Spent with Patient: Total time spent is greater than 50% in coordination of care (as documented) at patient's floor/unit and/or counseling patient: Coding Level of Care Code 64249 SUB INP/OBS CARE 3/50MIN Diagnoses Heart failure with reduced ejection fraction I50.20 Acute and chronic respiratory failure J96.20 Elevated troponin R79.89 Pulmonary fibrosis J84.10 Pulmonary hypertension I27.20 Hypertension I10 Hypertension type: unspecified Peripheral neuropathy G62.9 PSVT (paroxysmal supraventricular tachycardia) I47.1 GERD (gastroesophageal reflux disease) K21.9 IBS (irritable bowel syndrome) K58.9 Hypothyroidism E03.9 Bipolar disorder F31.9 (6) Hypertension Hypertension type: unspecified Qualified Code(s): I10 - Essential (primary) hypertension
[2023-10-06] MEDS: DOCUSATE SODIUM/SENNA 50/8.6MG TAB PO SCH (20:02)
[2023-10-06] MEDS: AMITRIPTYLINE HCL 25 MG TAB PO SCH (20:15)
[2023-10-06] MEDS: lamoTRIgine 100 MG TAB PO SCH (20:16)
[2023-10-06] MEDS ORDERED: SILDENAFIL CITRATE 20 MG TABLET PO SCH (21:00)
[2023-10-07] MEDS: LEVOTHYROXINE SODIUM 137 MCG TABLET PO SCH (05:37)
[2023-10-07 06:23] LABS: Calcium 8.7 mg/dl (8.6-10.3); Creatinine Clr Calc Pharmacy 37.7 ml/min; Est GFR (African American) 43.2 ml/min; Est GFR (Non-African American) 37.2 ml/min; Magnesium 2.2 mg/dl (1.7-2.4); Potassium 3.3 mmol/L (3.5-5.1)
[2023-10-07] MEDS ORDERED: POTASSIUM CHLORIDE 10 MEQ TABCR PO SCH (07:40)
[2023-10-07] MEDS ORDERED: POTASSIUM CHLORIDE CRTAB 20 MEQ TABCR PO ONE (07:44)
[2023-10-07] MEDS ORDERED: Nursing to Pharmacy Communication SCH (08:15)
[2023-10-07] MEDS ORDERED: ONDANSETRON INJ 2 MG/ML 2 ML VIAL IV PRN (08:49)
--- NOTE | 2023-10-07 08:51 | Hospitalist Progress Note ---
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 No WMAs to suggest ischemic disease Repeat echocardiogram on 10/05 now with further reduced EF to 25-30% with global hypokinesis, moderate LVH, mild MR, mild to moderate PHTN With persistent atrial tachycardia-question of tachycardia is leading to further reduction in EF Lower blood pressures likely due to adrenal insufficiency as she has suddenly stopped taking her long-term prednisone in the last couple of weeks-blood pressures improved with restarting prednisone Given increase in Cr/BUN and good diuresis will reduce her Lasix back to 40mg IV daily Agree with starting metoprolol succinate 25 mg BID, will continue to uptitrate tomorrow as able Would hold off Entresto with current blood pressures, tachycardia and renal function Continue supplemental O2 to keep POx> 90% Daily weights, I/Os, fluid restrict, low sodium diet Awaiting cardiology consult but non urgent at this time (2) Acute and chronic respiratory failure: Plan: on 5LNC at home, was dropping POx to the 70-80s with exertion prior to admission 2/2 CHF Wean oxygen to maintain O2 sats > 90% (3) Elevated troponin: Plan: Myocardial demand ischemia trop 184 on admission, with chest pressure associated with chest congestion/CHF Troponin peaked after admission at 243 ECG without ischemic changes Echo without wall motion abnormalities (4) Pulmonary fibrosis: Plan: She was supposed to be on prednisone 10mg daily but she had stopped taking it a couple of weeks ago-she thought she was supposed to stop it altogether. Pulmonary simply wanted her to start weaning down on it Continue prednisone 10 mg p.o. daily Duonebs prn Continue mycophenolate 750 Mg p.o. twice daily Sildenafil is relatively contraindicated in HFrEF as per my discussion with pulmonology-wean off sildenafil-decrease dose to 10 Mg p.o. 3 times daily for 3 days, then 10 Mg p.o. twice daily for 3 days, then stop Follows with Dr. Romero as an outpatient Continue supplemental O2 Do not suspect acute exacerbation at this time however if not improving will consider pulmonology consultation. (5) Pulmonary hypertension: Plan: Secondary to pulmonary fibrosis (6) Hypertension: Plan: BPs controlled to mildly low likely from adrenal insufficiency-restarted prednisone and now improved continue diuresis and metoprolol (7) Peripheral neuropathy: Plan: continue gabapentin, Elavil (8) PSVT (paroxysmal supraventricular tachycardia): Plan: Was not currently on beta blockers-started Toprol-XL as above Continue to monitor on tele (9) GERD (gastroesophageal reflux disease): Plan: continue PPI (10) IBS (irritable bowel syndrome): Plan: continue Elavil (11) Hypothyroidism: Plan: TSH here normal in 08/2023 continue home LT4 (12) Bipolar disorder: Plan: continue BuSpar, Lamictal, Topamax Plan VTE prophylaxis - Lovenox 40 mg SQ BID (increased dose due to BMI greater than 40) Diet - low-sodium, fluid restricted diet Disposition - continue admission for further diuresis and up titration of beta- claritza at time DNR/DNI as d/w patient. She would like her daughter to make decisions for her if unable to do so Updated daughter over the phone 10/07 Admission and Anticipated Discharge Date Admission Date: October 04, 2023 Anticipated date of discharge: 10/09/23 Subjective Reports improvement since admission but still not back to her baseline previous to this illness. Still extremely short of breath while just walking to the toilet and back. She is on her baseline oxygen at rest but needing a significant increase on exertion. No chest pain. Chronic productive cough at baseline. She is unsure about her weight. Declines any suggestion of fpc placement and she wishes to return home. She has mentally prepared herself for going home on Sunday. Review of Systems Review of Systems: All systems reviewed & are unremarkable except as noted in HPI & below Physical Exam Constitutional: WD/WN, vitals as above Respiratory: + labored breathing and + uses accessory muscles; expiratory phase not prolonged, no audible wheezes, no pursed lip breathing and no stridor Auscultation: + crackles (Fine posteriorly throughout) and + wheezes (Mild anterior end expiratory); breath sounds present and no diminished lung sounds Cardiovascular: Rate/Rhythm: regular rhythm and + tachycardic Heart Sounds: no murmur Extremities: normal capillary refill and + pedal edema (Trace bilateral equal); no calf tenderness Gastrointestinal (Abdomen): normal bowel sounds, soft, nontender, no hepatosplenomegaly Skin: no rashes, warm and dry Psychiatric: A+Ox3, euthymic affect Results & Data Results & Data Vital Signs (Past 12 Hours) Vital Signs Temp Pulse Pulse Resp BP Pulse Ox O2 Del Method 10/07/23 03:27 36.5 C 106 H 18 102/67 99 Nasal Cannula 10/07/23 00:50 36.6 C 109 H 105/65 99 Room Air 10/06/23 22:00 116 H O2 Flow Rate 10/07/23 03:27 5 10/07/23 00:50 10/06/23 22:00 Laboratory Results Abnormal lab results 10/07/23 Range/Units 05:24 Potassium 3.3 L (3.5-5.1) mmol/L BUN 32 H (6-23) mg/dl Creatinine 1.39 H (0.6-1.2) mg/dl BUN/Creatinine Ratio 23.0 H (10-20) Glucose 119 H (70-99(Fasting)) mg/dl PG Care Time/CCT Total # of Minutes Spent Total Time Spent with Patient: Total time spent is greater than 50% in coordination of care (as documented) at patient's floor/unit and/or counseling patient: Coding Level of Care Code 48976 SUB INP/OBS CARE 2/35MIN Diagnoses Heart failure with reduced ejection fraction I50.20 Acute and chronic respiratory failure J96.20 Elevated troponin R79.89 Pulmonary fibrosis J84.10 Pulmonary hypertension I27.20 Hypertension I10 Hypertension type: unspecified Peripheral neuropathy G62.9 PSVT (paroxysmal supraventricular tachycardia) I47.1 GERD (gastroesophageal reflux disease) K21.9 IBS (irritable bowel syndrome) K58.9 Hypothyroidism E03.9 Bipolar disorder F31.9 (6) Hypertension Hypertension type: unspecified Qualified Code(s): I10 - Essential (primary) hypertension
[2023-10-07] MEDS: CYANOCOBALAMIN (B-12) 500 MCG TABLET PO SCH (09:40)
[2023-10-07] MEDS: busPIRone 5 MG TAB PO SCH ×3 (09:40→21:18)
[2023-10-07] MEDS: METOPROLOL SUCC 25MG EXT REL TAB PO SCH ×2 (09:41→21:29)
[2023-10-07] MEDS: ENOXAPARIN INJ 40 MG/0.4 ML SYR SQ SCH ×2 (09:41→21:31)
[2023-10-07] MEDS: PANTOprazole 40 MG TAB PO SCH ×2 (09:41→21:30)
[2023-10-07] MEDS: FUROSEMIDE 40 MG/4 ML VIAL IV SCH (09:41)
[2023-10-07] MEDS: DOCUSATE SODIUM/SENNA 50/8.6MG TAB PO SCH (09:42)
[2023-10-07] MEDS: predniSONE 10 MG TABLET PO SCH (09:42)
[2023-10-07] MEDS: GABAPENTIN 100 MG CAP PO SCH ×2 (12:22→21:19)
[2023-10-07] MEDS: TOPIRAMATE 100 MG TAB PO SCH ×2 (12:22→21:19)
[2023-10-07] MEDS: SILDENAFIL CITRATE 20 MG TABLET PO SCH ×3 (12:22→21:17)
[2023-10-07] MEDS: MYCOPHENOLATE MOFETIL 250 MG CAP PO SCH ×2 (12:23→21:30)
--- NOTE | 2023-10-07 20:31 | Electrocardiogram Report ---
Test Reason : Blood Pressure : / mmHG Vent. Rate : 109 BPM Atrial Rate : 109 BPM P-R Int : 186 ms QRS Dur : 130 ms QT Int : 364 ms P-R-T Axes : -11 -15 104 degrees QTc Int : 490 ms Poor data quality, interpretation may be adversely affected Sinus tachycardia Left bundle branch block Abnormal ECG When compared with ECG of 05-OCT-2023 06:03, Nonspecific T wave abnormality, worse in Inferior leads Confirmed by German Araya [id number]) on 10/07/2023 8:31:15 PM Referred By: REFERRED SELF Confirmed By:German Araya
[2023-10-07] MEDS: AMITRIPTYLINE HCL 25 MG TAB PO SCH (21:28)
[2023-10-07] MEDS: lamoTRIgine 100 MG TAB PO SCH (21:29)
[2023-10-08 05:25] LABS: BUN Creatinine Ratio 24.8 (10-20); C Reactive Protein 0.89 mg/dl (0-0.5); Calcium 8.6 mg/dl (8.6-10.3); Creatinine Clr Calc Pharmacy 42.7 ml/min; Est GFR (African American) 49.1 ml/min; Est GFR (Non-African American) 42.3 ml/min; Potassium 3.6 mmol/L (3.5-5.1)
[2023-10-08] MEDS: LEVOTHYROXINE SODIUM 137 MCG TABLET PO SCH (05:50)
[2023-10-08] MEDS ORDERED: POTASSIUM CHLORIDE 10 MEQ TABCR PO SCH (07:40)
[2023-10-08] MEDS: PANTOprazole 40 MG TAB PO SCH ×2 (08:28→20:50)
[2023-10-08] MEDS: CYANOCOBALAMIN (B-12) 500 MCG TABLET PO SCH (08:28)
[2023-10-08] MEDS: predniSONE 10 MG TABLET PO SCH (08:29)
[2023-10-08] MEDS: DOCUSATE SODIUM/SENNA 50/8.6MG TAB PO SCH (08:29)
[2023-10-08] MEDS: busPIRone 5 MG TAB PO SCH ×3 (08:29→20:47)
[2023-10-08] MEDS: ENOXAPARIN INJ 40 MG/0.4 ML SYR SQ SCH ×2 (08:30→20:46)
[2023-10-08] MEDS: FUROSEMIDE 40 MG/4 ML VIAL IV SCH (08:39)
[2023-10-08] MEDS: METOPROLOL SUCC 50MG EXT REL TAB PO SCH ×2 (09:30→21:20)
--- NOTE | 2023-10-08 10:52 | Hospitalist Progress Note ---
Date of Service October 08, 2023 Assessment & Plan (1) Heart failure with reduced ejection fraction: Plan: Acute on chronic HFrEF, here with significant dyspnea, requiring more O2 than usual, elevated BNP, wheezing on exam cardiac vs pulm related ECHO 06/2023 with reduced EF 35-40%, mild Pulm HTN Heart failure related to fibrotic lung disease, tachycardia and LBBB. No WMAs to suggest ischemic disease Repeat echocardiogram on 10/05 now with further reduced EF to 25-30% with global hypokinesis, moderate LVH, mild MR, mild to moderate PHTN Continue significant diuresis on Lasix 40 mg IV daily after reduction from BID, switch to 40 mg p.o. daily tomorrow where she can likely continue this dose on discharge with PRN dosing for weight gain Continue to uptitrate metoprolol succinate to 50 mg p.o. BID which given her current blood pressure appears to be a reasonable dose for discharge Would hold off Entresto with current blood pressures and renal function Would consider addition of spironolactone as an outpatient Continue supplemental O2 to keep POx> 90% Daily weights, I/Os, fluid restrict, low sodium diet Awaiting cardiology consult but non urgent at this time (2) Acute and chronic respiratory failure: Plan: on 5LNC at home, was dropping POx to the 70-80s with exertion prior to admission 2/2 CHF Wean oxygen to maintain O2 sats > 90% 2 step placed for tomorrow to make sure safe for discharge on nasal cannula (3) Elevated troponin: Plan: Myocardial demand ischemia trop 184 on admission, with chest pressure associated with chest congestion/CHF Troponin peaked after admission at 243 ECG without ischemic changes Echo without wall motion abnormalities (4) Pulmonary fibrosis: Plan: She was supposed to be on prednisone 10mg daily but she had stopped taking it a couple of weeks ago-she thought she was supposed to stop it altogether. Pulmonary simply wanted her to start weaning down on it Continue prednisone 10 mg p.o. daily Duonebs prn Continue mycophenolate 750 Mg p.o. twice daily Sildenafil is relatively contraindicated in HFrEF as per my discussion with pulmonology-wean off sildenafil-decrease dose to 10 Mg p.o. 3 times daily for 3 days, then 10 Mg p.o. twice daily for 3 days, then stop Follows with Dr. Romero as an outpatient Continue supplemental O2 Do not suspect acute exacerbation at this time given improvement and low CRP (5) Pulmonary hypertension: Plan: Secondary to pulmonary fibrosis (6) Hypertension: Plan: BPs controlled to mildly low likely from adrenal insufficiency-restarted prednisone and now improved continue diuresis and metoprolol (7) Peripheral neuropathy: Plan: continue gabapentin, Elavil (8) PSVT (paroxysmal supraventricular tachycardia): Plan: Was previously not on beta blockers-started Toprol-XL as above Continue to monitor on tele (9) GERD (gastroesophageal reflux disease): Plan: continue PPI (10) IBS (irritable bowel syndrome): Plan: continue Elavil (11) Hypothyroidism: Plan: TSH here normal in 08/2023 continue home LT4 (12) Bipolar disorder: Plan: continue BuSpar, Lamictal, Topamax Plan VTE prophylaxis - Lovenox 40 mg SQ BID (increased dose due to BMI greater than 40) Diet - low-sodium, fluid restricted diet Disposition - continue admission for further diuresis and up titration of beta- claritza DNR/DNI as d/w patient. She would like her daughter to make decisions for her if unable to do so Updated daughter over the phone 10/07 Anticipated discharge tomorrow 10/09 as long as she is not requiring over her oxygen capacity on her home machine on 2 step Admission and Anticipated Discharge Date Admission Date: October 04, 2023 Anticipated date of discharge: 10/09/23 Subjective Continued improvement and at baseline oxygen saturation with 96% O2 sats on 5 L/min. Discussed further imaging to rule out pulmonary embolism given she remained persistently tachycardic up until introducing metoprolol however given continued improvement she declines this currently and feels she is getting back to her baseline. Pulmonary embolism was ruled out in May. We discussed the difference between palliative and hospice care for quite some time and she wishes to follow-up with palliative care which I think is a good idea at this time. SHOSHANA Patton details added to discharge. Review of Systems Review of Systems: All systems reviewed & are unremarkable except as noted in HPI & below Physical Exam Constitutional: WD/WN, vitals as above Respiratory: + labored breathing and + uses accessory muscles; expiratory phase not prolonged, no audible wheezes, no pursed lip breathing and no stridor Auscultation: + crackles (Fine posteriorly throughout) and + wheezes (Mild anterior end expiratory); breath sounds present and no diminished lung sounds Cardiovascular: Rate/Rhythm: regular rate and regular rhythm Heart Sounds: no murmur Extremities: normal capillary refill and + pedal edema (Trace bilateral equal); no calf tenderness Gastrointestinal (Abdomen): normal bowel sounds, soft, nontender, no hepatosplenomegaly Skin: no rashes, warm and dry Psychiatric: A+Ox3, euthymic affect Results & Data Results & Data Vital Signs (Past 12 Hours) Vital Signs Temp Pulse Resp BP Pulse Ox O2 Del Method O2 Flow Rate 10/08/23 08:50 36.7 C 88 18 101/69 95 Nasal Cannula 5 10/08/23 03:26 36.3 C L 82 18 121/77 98 Nasal Cannula 5.0 10/08/23 00:04 36.6 C 84 20 100/68 97 Nasal Cannula 5.0 Laboratory Results Abnormal lab results 10/08/23 Range/Units 04:30 ESR 52 H (0-30) mm/hr BUN 31 H (6-23) mg/dl Creatinine 1.25 H (0.6-1.2) mg/dl BUN/Creatinine Ratio 24.8 H (10-20) Glucose 135 H (70-99(Fasting)) mg/dl C-Reactive Protein 0.89 H (0-0.5) mg/dl B-Natriuretic Peptide 404 H (0-100) pg/ml PG Care Time/CCT Total # of Minutes Spent Total Time Spent with Patient: Total time spent is greater than 50% in coordination of care (as documented) at patient's floor/unit and/or counseling patient: Coding Level of Care Code 00689 SUB INP/OBS CARE 235MIN Diagnoses Heart failure with reduced ejection fraction I50.20 Acute and chronic respiratory failure J96.20 Elevated troponin R79.89 Pulmonary fibrosis J84.10 Pulmonary hypertension I27.20 Hypertension I10 Hypertension type: unspecified Peripheral neuropathy G62.9 PSVT (paroxysmal supraventricular tachycardia) I47.1 GERD (gastroesophageal reflux disease) K21.9 IBS (irritable bowel syndrome) K58.9 Hypothyroidism E03.9 Bipolar disorder F31.9 (6) Hypertension Hypertension type: unspecified Qualified Code(s): I10 - Essential (primary) hypertension
[2023-10-08] MEDS: SILDENAFIL CITRATE 20 MG TABLET PO SCH ×3 (13:47→20:49)
[2023-10-08] MEDS: TOPIRAMATE 100 MG TAB PO SCH ×2 (13:47→20:50)
[2023-10-08] MEDS: MYCOPHENOLATE MOFETIL 250 MG CAP PO SCH ×2 (13:47→20:48)
[2023-10-08] MEDS: GABAPENTIN 100 MG CAP PO SCH ×2 (13:47→20:47)
[2023-10-08] MEDS: lamoTRIgine 100 MG TAB PO SCH (20:51)
[2023-10-08] MEDS: AMITRIPTYLINE HCL 25 MG TAB PO SCH (20:51)
[2023-10-09 04:44] LABS: BUN Creatinine Ratio 27.2 (10-20); Calcium 8.7 mg/dl (8.6-10.3); Creatinine Clr Calc Pharmacy 42.1 ml/min; Est GFR (African American) 49.1 ml/min; Est GFR (Non-African American) 42.3 ml/min; Potassium 3.5 mmol/L (3.5-5.1)
[2023-10-09] MEDS: LEVOTHYROXINE SODIUM 137 MCG TABLET PO SCH (05:39)
[2023-10-09] MEDS: METOPROLOL SUCC 50MG EXT REL TAB PO SCH ×2 (08:26→20:57)
[2023-10-09] MEDS: PANTOprazole 40 MG TAB PO SCH ×2 (08:27→21:00)
[2023-10-09] MEDS: busPIRone 5 MG TAB PO SCH ×3 (08:27→21:02)
[2023-10-09] MEDS: predniSONE 10 MG TABLET PO SCH (08:28)
[2023-10-09] MEDS: CYANOCOBALAMIN (B-12) 500 MCG TABLET PO SCH (08:28)
[2023-10-09] MEDS: DOCUSATE SODIUM/SENNA 50/8.6MG TAB PO SCH (08:29)
[2023-10-09] MEDS: FUROSEMIDE 40 MG TAB PO SCH ×2 (08:29→09:38)
[2023-10-09] MEDS: ENOXAPARIN INJ 40 MG/0.4 ML SYR SQ SCH ×2 (08:30→21:02)
[2023-10-09] MEDS ORDERED: FUROSEMIDE 40 MG TAB PO ONE (09:45)
--- NOTE | 2023-10-09 12:32 | Heart Failure Consultation ---
Date of Consultation October 09, 2023 Assessment & Plan (1) Cardiomyopathy: (2) Heart failure with reduced ejection fraction: Plan HFrEF: Patient appears slightly hypervolemic on exam. Kidney function is stable. Symptoms likely multifactorial with competing ILD diagnosis. She is on chronic supplemental O2 however is having edema and crackles on exam today. Would recommend an additional 40 mg IV today. Plan to transition to Lasix 40 mg PO starting tomorrow. Continue strict I&Os while inpatient. Daily STANDING weights. Low sodium diet. Patient educated to do daily weights once she is discharged to home and document. We discussed the nature of heart failure and the goals of the program. She is agreeable to enrollment. Follow up scheduled for 10/16 at 1100 am. Patient has difficult with transportation and may benefit from outpatient case management services. Cardiomyopathy: EF continues to decline. Previously 50-55% in February 2023 ---- 35-40%---- currently 25-30%. Changes are global, no wall motion abnormalities. Patient is not having any angina, presentation not consistent with ACS. Negative Lexiscan in 2019. Could consider outpatient ischemic eval. If negative would consider secondary workup. Patient has been tolerating metoprolol succinate. Would continue to titrate as outpatient. Would also consider Entresto, MRA, and SGLT2i in the near future. She is currently borderline hypotensive. Continue to revisit opportunities to optimize her heart failure regimen as outpatient. Consider ICD if EF < 35% after 90 days of optimal therapy. LBBB: Chronic Loop recorder: Most recent report, 12/2021. Disposition: I will be away from the hospital until 10/16/23. Patient has been scheduled for outpatient follow up 10/16/23 at 1100am. Please contact cardiology seconds grader for additional questions/needs. History of Present Illness Attending Physician: Malcolm Tai MD History of Present Illness 73-year-old woman with history of diabetes mellitus, severe pulmonary fibrosis (home oxygen) with chronic hypoxic respiratory failure, moderate pulmonary hypertension with high normal wedge pressure on right heart cath January 2023, HFrEF, chronic left bundle branch block, PSVT, remote CVA. Patient has been referred to the heart failure program due to frequent CHF related hospital admissions. Patient was admitted on 10/04/23 who presented with SOB and wheezing. She was also noting hypoxia with exertion at home. CXR with no acute process - no effusions, no pulmonary edema. She was treated with IV Lasix BID. Patient is feeling improved however continues to have 5 L O2 requirement. She is scheduled for 2step today. She slept well with her head slightly elevated. Denies PND. She is having increased lower extremity edema. Kidney function stable on morning labs. She's net negative 4.7 L for the admission. Weight today 224 lb per bed scale. BNP 979 on admission, trending down to 404. 10/05/23 ECHO: - Normal LV size with severely reduced function. EF 25-30%. - Global hypokinesis. Moderate concentric LVH - Mild MR - Mild to moderate pulmonary hypertension. RVSP 45-50 mmHg. ECHOCARDIOGRAM 05/17/2022: -- Normal biventricular systolic function. -- LVEF 60-65%, paradoxical septal motion consistent with bundle branch block. -- Mild MR. -- Moderate TR. -- RVSP 50-60 mmHg. ECHOCARDIOGRAM 01/19/22: -- Normal biventricular systolic function. -- LVEF 60% to 65%, paradoxical septal motion consistent with bundle branch block. -- Normal chamber dimensions. -- Mild concentric LVH. -- Grade I LV diastolic dysfunction. -- Mild aortic valve sclerosis with mild aortic stenosis. -- Mild tricuspid regurgitation. -- Moderately elevated estimated RVSP at 40 to 50 mmHg. -- Compared to 06/12/21 study; No significant interval change. ECHOCARDIOGRAM 06/12/21: -- Normal LV size and systolic function. -- LVEF 55% to 60%, no regional wall motion abnormalities, but septal motion consistent with bundle branch block. -- Mild concentric LVH. -- Mild pulmonary hypertension, estimated RVSP 40 mmHg. -- No significant valvular abnormalities. -- No evidence of interatrial shunt on bubble study. LEXISCAN CARDIOLITE 12/19/2019: 1. No scintigraphic evidence of a prior myocardial infarction or stress-induced myocardial ischemia. 2. No Lexiscan induced chest pain. 3. No Lexiscan induced EKG changes. 4. Normal left ventricular systolic function without wall motion abnormality. Left ventricular ejection fraction is 45% to 50%. ECHOCARDIOGRAM 12/12/19: -- Low normal LV systolic function. -- LVEF 50%, no wall motion abnormalities. -- Mild concentric LVH. -- No significant valvular abnormalities. Allergies Allergy/AdvReac Type Severity Reaction Status Date / Time latex Allergy Intermediate Rash, hand Verified 10/04/23 17:12 swelling Sulfa (Sulfonamide Allergy Intermediate Rash Verified 10/04/23 17:12 Antibiotics) Penicillins Allergy Unknown Unknown Verified 10/04/23 17:12 reaction (as teenager) morphine AdvReac Intermediate Anxiety Verified 10/04/23 17:12 Home Medications Medication Instructions Recorded Confirmed Type amitriptyline 25 mg tablet 25 mg PO HS #90 tabs 09/26/21 10/04/23 Rx buspirone 10 mg tablet 10 mg PO TID 03/02/23 10/04/23 History levothyroxine 137 mcg tablet 137 mcg PO QAM 03/02/23 10/04/23 History acetaminophen 325 mg tablet 650 mg PO QID PRN Pain 06/14/23 10/04/23 History (Tylenol) lamotrigine 150 mg tablet 150 mg PO HS 06/14/23 10/04/23 History cyanocobalamin (vitamin B-12) 1,000 mcg PO QAM 08/06/23 10/04/23 History 1,000 mcg capsule gabapentin 100 mg capsule 100 mg PO BID 08/06/23 10/04/23 History topiramate 100 mg tablet 100 mg PO BID 08/06/23 10/04/23 History pantoprazole 40 mg tablet,delayed 40 mg PO BID #30 tabs 08/16/23 10/04/23 Rx release sildenafil (pulm.hypertension) 20 20 mg PO TID #90 tabs 08/16/23 10/04/23 Rx mg tablet (Revatio) prednisone 10 mg tablet 10 mg PO DAILY 08/29/23 10/04/23 History albuterol sulfate 90 mcg/actuation 2 inh inhalation Q4H PRN shortness 10/04/23 1 12/05/22 History aerosol inhaler of breath or wheezing furosemide 20 mg tablet 20 mg PO DAILY 10/04/23 10/04/23 History mycophenolate mofetil 250 mg 750 mg PO BID 10/04/23 10/04/23 History capsule Patient History Medical History Major depressive disorder Leukocytosis Elevated brain natriuretic peptide (BNP) level Pedal edema Fluid overload Exertional dyspnea Elevated troponin Secondary pulmonary hypertension Congestive heart failure Pulmonary edema Chronic cough Diffuse myofascial pain syndrome Chronic low back pain Interstitial lung disease follows with [facility] (PRN) Diabetes mellitus type II, controlled pt denies Arrhythmia ? hx of a. fib- on Eliquis per cardiology -- hx of having a Loop Recorder in 2021 with no evidence of A.fib on the recorder at the time. no current treatment On home oxygen therapy 2-3L at rest/5L with activity Anxiety and depression History of blood transfusion Post-op 2017 Pulmonary hypertension Moderately elevated estimated RVSP (RVSP 40-50mmhg) per 01/19/22 echo IPF (idiopathic pulmonary fibrosis) PSVT (paroxysmal supraventricular tachycardia) pt denies/unaware Cerebrovascular accident (CVA) of left thalamus 06/11/2021 (post-op Right TKA) > POD#1 ischemic left thalamic stroke CVA with right sided weakness History of COVID-19 12/2020 > fully recovered Hyperglycemia Hx mild hyperglycemia under surveillance by PCP. Most recent A1C 5.6% (06/12/21) -- pt reports no continued issues at this time (08/06/2023) Shortness of breath Left bundle branch block Follows with [facility] cardiology IBS (irritable bowel syndrome) Intermittent flares - takes Amitriptyline and Protonix for GI pain control Spinal stenosis Hypothyroidism Osteopenia GERD (gastroesophageal reflux disease) Post traumatic stress disorder Bipolar disorder Surgical History Status post right knee replacement (~05/2021) History of cataract surgery S/P revision of total knee 03/2022 at [facility] (Right TKA) Status post bronchoscopy With BAL 08/01/[address] Romero at [facility] History of loop recorder has since been removed in 09/2022 at [facility] History of total knee replacement Right TKA (06/10/21): SAB at L4-5 (x1 attempt) + PNB at [facility] History of surgery Right Quadriceps Repair (06/14/21): LMA#4 at [facility]. No issues noted per post-op anesthesia progress note. History of anesthesia reaction "Slow to wake" x1 episode after 3 hour surgery in 2016- she states she became violent and upset, hallucinated while waking up. Began to calm down once she heard her daughter's voice. History of hernia surgery History of colonoscopy History of arthroscopy R/L knee History of cholecystectomy Status post gastric banding surgery + removal History of hysterectomy Family History Family/Other No problems noted. Mother Colon cancer Dementia Father , at age 79 from mesothelioma. Mesothelioma Sister No problems noted. Sister No problems noted. Son No problems noted. Daughter No problems noted. Other Family history of diabetes mellitus in father Denies family history of Ovarian cancer Prostate cancer Myocardial infarction Breast cancer Social History Smoking Status: Never smoker Tobacco Type: Cigarettes packs per day: 1; Second Hand Exposure: No; Do You Dip or Chew Tobacco: No; Hx Alcohol Use: Yes Alcohol type: wine Hx Substance Use: No Preferred Language: Mongolian Communication Ability: Effective Visual Impairment: No Limitations Monotype Mechanic Required: No Beliefs That Will Affect Care: None marital status: Single Current Living Situation: Alone Current Living Situation Comment: "[facility] building, alone" current occupational status: retired Other Information That Helps Us Care for You: No Feels Safe at Home: Yes Childhood Exposure to Second-Hand Smoke: Yes Dental Care, Regularly: Yes Physical Activity Frequency: Daily Seatbelt Use: always Sunscreen Use: No Assistive Devices: Oxygen - Continuous, Walker and Wheelchair Physical Exam Physical Exam: Constitutional: Alert, oriented, in no acute distress HEENT: Head is atraumatic and normocephalic. EOMs intact. Sclera anicteric. Face is symmetric. No perioral cyanosis. Mucous membranes moist. Neck: Supple, no JVD Pulmonary: Normal respiratory effort, she has faint crackles throughout. Cardiac: Regular rate and rhythm. Normal S1 and S2, no gallops, no rubs, no murmurs Extremities: 2+ radial pulses bilaterally. 2+ posterior tibialis pulses bilaterally. 1+ non- pitting edema. No cyanosis or clubbing. Abdomen: Normal bowel sounds, soft, non-tender, no abdominal mass palpated Skin: Normal skin color, turgor, and pigmentation, no rash, no skin lesions Neurological: Patient is awake, alert, and oriented. Pleasant and cooperative. Answers questions appropriately. Speech is clear. Normal movement in all 4 extremities. Results & Data Vital Signs (Past 12 Hours) Vital Signs Temp Pulse Resp BP Pulse Ox O2 Del Method O2 Flow Rate 10/09/23 10:59 97.9 F 83 19 99/71 L 92 Nasal Cannula 5 10/09/23 08:08 97.3 F L 88 21 113/77 90 Nasal Cannula 5 10/09/23 07:30 Nasal Cannula 5 10/09/23 04:25 97.7 F 76 22 123/81 98 Nasal Cannula 5 Heart Failure Data/Metrics Heart Failure Type: HFrEf (EF < 40%) Ejection Fraction: 25-30% Evidenced Based Beta Chris Therapy Beta Chris Therapy: Yes Beta Chris Name: Metoprolol Succinate Beta Chris Target Therapy: Not at Target Therapy GWEN/ARB/ARNI Therapy GWEN/ARB/ARNI Therapy: Contraindicated GWEN/ARB/ANI Contraindications: GALA/AKD Coding Level of Care Code 54453 INT INP/OBS CARE MIN Diagnoses Cardiomyopathy I42.9 Heart failure with reduced ejection fraction I50.20
[2023-10-09] MEDS: MYCOPHENOLATE MOFETIL 250 MG CAP PO SCH ×2 (13:08→21:00)
[2023-10-09] MEDS: GABAPENTIN 100 MG CAP PO SCH ×2 (13:09→20:57)
[2023-10-09] MEDS: SILDENAFIL CITRATE 20 MG TABLET PO SCH ×2 (13:12→21:01)
[2023-10-09] MEDS: TOPIRAMATE 100 MG TAB PO SCH ×2 (13:13→20:58)
--- NOTE | 2023-10-09 15:17 | Hospitalist Progress Note ---
Date of Service October 09, 2023 Assessment & Plan (1) Heart failure with reduced ejection fraction: Plan: Acute on chronic HFrEF, here with significant dyspnea, requiring more O2 than usual, elevated BNP, wheezing on exam cardiac vs pulm related - ECHO 06/2023 with reduced EF 35-40%, mild Pulm HTN - Heart failure related to fibrotic lung disease, tachycardia and LBBB. No WMAs to suggest ischemic disease - Repeat echocardiogram on 10/05 now with further reduced EF to 25-30% with global hypokinesis, moderate LVH, mild MR, mild to moderate PHTN Patient has been diuresing well and was scheduled to transition to oral 10/09 but remains with some orthopnea, increased oxygen requirements from baseline of 3-4 L still at 5, and lower extremity edema not yet at dry weight. Patient did work with OT however had desaturation to 68% with exertion requiring increased o xygen and physical therapy was deferred while she was recovering from this. Seen by cardiology, agree with 40 mg IV Lasix today and transition tomorrow if improved. Repeat EF in 90 days, ICD referral if remains less than 35%. Patient is pending PT/OT at two-step. Do not recommend dc today due to desaturation and not yet at functional or volume baseline. Metoprolol titration deferred due to borderline hypotension, Entresto deferred due to borderline hypotension. Spironolactone/Entresto/SGLT2 inhibitor addition and metoprolol up titration should be followed up on as outpatient if not able to be performed during this day patient is otherwise improved for discharge Low-sodium diet Patient has caregivers normally at home however due to staffing issues has none in place currently. CM consulted. - Lower leg compression not tolerated via teds/compression socks, mark wraps applied. (2) Acute and chronic respiratory failure: Plan: on 5LNC at home, was dropping POx to the 70-80s with exertion prior to admission 2/2 CHF Wean oxygen to maintain O2 sats > 90% Discussed with cardiology, recommend due to remaining volume overload should have 1 additional day of diuresis IV. (3) Elevated troponin: Plan: Myocardial demand ischemia trop 184 on admission, with chest pressure associated with chest congestion/CHF Troponin peaked after admission at 243 ECG without ischemic changes Echo without wall motion abnormalities (4) Pulmonary fibrosis: Plan: She was supposed to be on prednisone 10mg daily but she had stopped taking it a couple of weeks ago-she thought she was supposed to stop it altogether. Pulmonary simply wanted her to start weaning down on it Continue prednisone 10 mg p.o. daily Duonebs prn Continue mycophenolate 750 Mg p.o. twice daily Sildenafil is relatively contraindicated in HFrEF as per discussion with pulmonology-wean off sildenafil-decrease dose to 10 Mg p.o. 3 times daily for 3 days, then 10 Mg p.o. twice daily for 3 days, then stop Follows with Dr. Romero as an outpatient Continue supplemental O2 Do not suspect acute exacerbation at this time given improvement and low CRP (5) Pulmonary hypertension: Plan: Secondary to pulmonary fibrosis (6) Hypertension: Plan: BPs controlled to mildly low likely from adrenal insufficiency-restarted prednisone and now improved continue diuresis and metoprolol (7) Peripheral neuropathy: Plan: continue gabapentin, Elavil (8) PSVT (paroxysmal supraventricular tachycardia): Plan: Was previously not on beta blockers-started Toprol-XL as above Continue to monitor on tele (9) GERD (gastroesophageal reflux disease): Plan: continue PPI (10) IBS (irritable bowel syndrome): Plan: continue Elavil (11) Hypothyroidism: Plan: TSH here normal in 08/2023 continue home LT4 (12) Bipolar disorder: Plan: continue BuSpar, Lamictal, Topamax Plan VTE prophylaxis - Lovenox 40 mg SQ BID (increased dose due to BMI greater than 40) Diet - low-sodium, fluid restricted diet Disposition - continue admission for further diuresis DNR/DNI as d/w patient. She would like her daughter to make decisions for her if unable to do so Still volume up and with functional impairment 10/08. PT delayed due to acute episode of hypoxia. Deferred to tomorrow, additional diuresis today. Admission and Anticipated Discharge Date Admission Date: October 04, 2023 Subjective Seen at the bedside this morning. Patient feels she has been clinically progressing but her legs remain significantly above baseline and are normally "skinny "and still have more fluid on them than her normal. She remains on 5 L of oxygen, normal is 4 L. She was sleeping somewhat reclined but is unable to sleep completely reclined with some shortness of breath. Remains volume up. Patient is very distressed as she has an appointment for denture fitting tomorrow and if this is delayed to the new year it will not be covered by her insurance. She recognizes that she is not yet at her breathing baseline and is not quite ready to leave the hospital but expresses great frustration and worry over what she will do regarding the dentures as her current ones are a poor fit. She denies chest pain, chest pressure, fever, chills, sweats. Has not yet worked with PT today, has not yet taken her morning medications to Physical Exam Physical Exam: General: A&Ox3. NAD. Cooperative. HEENT: Atraumatic, normocephalic. Vision/hearing grossly intact Pulm: +basilar crackles bilat. Symmetrical chest rise. No increased work of breathing. No respiratory distress. Cardiac: RRR, +sm. Radial pulses intact and symmetrical. Abdominal: Nontender, nondistended, soft. BS present. Extremities: Pitting edema 2+ in the lower extremities bilateral Results & Data Results & Data Vital Signs (Past 12 Hours) Vital Signs Temp Pulse Resp BP Pulse Ox O2 Del Method O2 Flow Rate 10/09/23 10:59 36.6 C 83 19 99/71 L 92 Nasal Cannula 5 10/09/23 08:08 36.3 C L 88 21 113/77 90 Nasal Cannula 5 10/09/23 07:30 Nasal Cannula 5 10/09/23 04:25 36.5 C 76 22 123/81 98 Nasal Cannula 5 PG Care Time/CCT Total # of Minutes Spent Total Time Spent with Patient: Total time spent is greater than 50% in coordination of care (as documented) at patient's floor/unit and/or counseling patient: Coding Level of Care Code 05073 SUB INP/OBS CARE 3/50MIN Diagnoses Heart failure with reduced ejection fraction I50.20 Acute and chronic respiratory failure J96.20 Elevated troponin R79.89 Pulmonary fibrosis J84.10 Pulmonary hypertension I27.20 Hypertension I10 Hypertension type: unspecified Peripheral neuropathy G62.9 PSVT (paroxysmal supraventricular tachycardia) I47.1 GERD (gastroesophageal reflux disease) K21.9 IBS (irritable bowel syndrome) K58.9 Hypothyroidism E03.9 Bipolar disorder F31.9 (6) Hypertension Hypertension type: unspecified Qualified Code(s): I10 - Essential (primary) hypertension
[2023-10-09] MEDS: lamoTRIgine 100 MG TAB PO SCH (20:58)
[2023-10-09] MEDS: AMITRIPTYLINE HCL 25 MG TAB PO SCH (21:00)
[2023-10-10 04:58] LABS: BUN Creatinine Ratio 22.5 (10-20); Calcium 8.8 mg/dl (8.6-10.3); Creatinine Clr Calc Pharmacy 41.9 ml/min; Est GFR (African American) 47.2 ml/min; Est GFR (Non-African American) 40.8 ml/min; Potassium 3.6 mmol/L (3.5-5.1)
[2023-10-10] MEDS: LEVOTHYROXINE SODIUM 137 MCG TABLET PO SCH (06:01)
[2023-10-10] MEDS: SILDENAFIL CITRATE 20 MG TABLET PO SCH ×2 (08:13→21:00)
[2023-10-10] MEDS: DOCUSATE SODIUM/SENNA 50/8.6MG TAB PO SCH (08:13)
[2023-10-10] MEDS: METOPROLOL SUCC 50MG EXT REL TAB PO SCH ×2 (08:13→21:00)
[2023-10-10] MEDS: predniSONE 10 MG TABLET PO SCH (08:14)
[2023-10-10] MEDS: CYANOCOBALAMIN (B-12) 500 MCG TABLET PO SCH (08:14)
[2023-10-10] MEDS: PANTOprazole 40 MG TAB PO SCH ×2 (08:14→20:59)
[2023-10-10] MEDS: busPIRone 5 MG TAB PO SCH ×3 (08:14→21:03)
[2023-10-10] MEDS: FUROSEMIDE 40 MG TAB PO SCH (08:14)
[2023-10-10] MEDS: ENOXAPARIN INJ 40 MG/0.4 ML SYR SQ SCH ×2 (08:15→21:03)
[2023-10-10] MEDS: GABAPENTIN 100 MG CAP PO SCH ×2 (13:10→21:02)
[2023-10-10] MEDS: MYCOPHENOLATE MOFETIL 250 MG CAP PO SCH ×2 (13:10→21:01)
[2023-10-10] MEDS: TOPIRAMATE 100 MG TAB PO SCH ×2 (13:11→20:58)
--- NOTE | 2023-10-10 13:26 | Hospitalist Progress Note ---
Date of Service October 10, 2023 Assessment & Plan (1) Heart failure with reduced ejection fraction: Plan: Acute on chronic HFrEF, here with significant dyspnea, requiring more O2 than usual, elevated BNP, wheezing on exam cardiac vs pulm related - ECHO 06/2023 with reduced EF 35-40%, mild Pulm HTN - Heart failure related to fibrotic lung disease, tachycardia and LBBB. No WMAs to suggest ischemic disease - Repeat echocardiogram on 10/05 now with further reduced EF to 25-30% with global hypokinesis, moderate LVH, mild MR, mild to moderate PHTN 10/09 Patient has been diuresing well and was scheduled to transition to oral 10/09 but remains with some orthopnea, increased oxygen requirements from baseline of 3-4 L still at 5, and lower extremity edema not yet at dry weight. Patient did work with OT however had desaturation to 68% with exertion requiring increased oxygen and physical therapy was deferred while she was recovering from this. Seen by cardiology, agree with 40 mg IV Lasix today and transition tomorrow if improved. Repeat EF in 90 days, ICD referral if remains less than 35%. Patient is pending PT/OT at [facility]. Do not recommend 10/09 due to desaturation and not yet at functional or volume baseline. Metoprolol titration deferred due to borderline hypotension, Entresto deferred due to borderline hypotension. Spironolactone/Entresto/SGLT2 inhibitor addition and metoprolol up titration should be followed up on as outpatient if not able to be performed during this day patient is otherwise improved for discharge Low-sodium diet Patient has caregivers normally at home however due to staffing issues has none in place currently. CM consulted. - Lower leg compression not tolerated via teds/compression socks, rio wraps applied. 10/10 patient with rapid desaturation with ambulation. Continues to have light crackles in the base with a history of IPF, but also has JVD 2 cm above the clavicle with HJR and lower extremity swelling consistent with volume overload slowly improving. Creatinine remains relatively stable approximately 1.21.3, diuresis continued. Discharge delayed due to significant oxygen requirements more than baseline on 2 setp (2) Acute and chronic respiratory failure: Plan: on 5LNC at home, was dropping POx to the 70-80s with exertion prior to admission 2/2 CHF Wean oxygen to maintain O2 sats > 90% Continued diuresis. Remains with oxygen requirements above her normal baseline, multifactorial with fluid overload and history of fibrosis (3) Elevated troponin: Plan: Myocardial demand ischemia trop 184 on admission, with chest pressure associated with chest congestion/CHF Troponin peaked after admission at 243 ECG without ischemic changes Echo without wall motion abnormalities (4) Pulmonary fibrosis: Plan: She was supposed to be on prednisone 10mg daily but she had stopped taking it a couple of weeks ago-she thought she was supposed to stop it altogether. Pulmonary simply wanted her to start weaning down on it Continue prednisone 10 mg p.o. daily Duonebs prn Continue mycophenolate 750 Mg p.o. twice daily Sildenafil is relatively contraindicated in HFrEF as per discussion with pulmonology-wean off sildenafil-decrease dose to 10 Mg p.o. 3 times daily for 3 days, then 10 Mg p.o. twice daily for 3 days, then stop Follows with Dr. Romero as an outpatient Continue supplemental O2 Do not suspect acute exacerbation at this time given improvement and low CRP (5) Pulmonary hypertension: Plan: Secondary to pulmonary fibrosis (6) Hypertension: Plan: BPs controlled to mildly low likely from adrenal insufficiency-restarted prednisone and now improved continue diuresis and metoprolol (7) Peripheral neuropathy: Plan: continue gabapentin, Elavil (8) PSVT (paroxysmal supraventricular tachycardia): Plan: Was previously not on beta blockers-started Toprol-XL as above Continue to monitor on tele (9) GERD (gastroesophageal reflux disease): Plan: continue PPI (10) IBS (irritable bowel syndrome): Plan: continue Elavil (11) Hypothyroidism: Plan: TSH here normal in 08/2023 continue home LT4 (12) Bipolar disorder: Plan: continue BuSpar, Lamictal, Topamax Plan VTE prophylaxis - Lovenox 40 mg SQ BID (increased dose due to BMI greater than 40) Diet - low-sodium, fluid restricted diet Disposition - continue admission for further diuresis DNR/DNI as d/w patient. She would like her daughter to make decisions for her if unable to do so Still volume up and with functional impairment 10/10. PT delayed due to acute episode of hypoxia. Diuresis continued Admission and Anticipated Discharge Date Admission Date: October 04, 2023 Subjective Seen at the bedside this morning. Had significant desaturation requiring prolon ged oxygen for recovery with respiratory therapy. She feels her breathing is currently much worse than her normal baseline even given her pulmonary fibrosis. She has had brisk UOP to Lasix yesterday has not had any lightheadedness or dizziness. Physical Exam Physical Exam: General: A&Ox3. NAD. Cooperative. HEENT: Atraumatic, normocephalic. Vision/hearing grossly intact Pulm: Bilateral basilar crackles which do not clear on deep inspiration symmetrical chest rise. No increased work of breathing. No respiratory distress. Cardiac: RRR, +sm. Radial pulses intact and symmetrical. Abdominal: Nontender, nondistended, soft. BS present. Extremities: Pitting edema 2+ in the lower extremities bilateral, slightly improved from prior with Rio wrap's Results & Data Results & Data Vital Signs (Past 12 Hours) Vital Signs Temp Pulse Pulse Pulse Pulse Pulse Pulse 10/10/23 13:00 36.6 C 79 10/10/23 09:42 93 H 95 H 73 72 72 10/10/23 07:56 36.6 C 87 10/10/23 03:19 37.2 C 86 Resp Resp Resp Resp Resp Resp BP 10/10/23 13:00 20 122/75 10/10/23 09:42 28 H 28 H 20 20 20 10/10/23 07:56 20 101/69 10/10/23 03:19 22 105/72 Pulse Ox Pulse Ox Pulse Ox Pulse Ox Pulse Ox Pulse Ox O2 Del Method 10/10/23 13:00 97 Nasal Cannula 10/10/23 09:42 71 L 72 L 85 L 90 83 L 10/10/23 07:56 94 Nasal Cannula 10/10/23 03:19 93 Nasal Cannula O2 Flow Rate O2 Flow Rate O2 Flow Rate O2 Flow Rate O2 Flow Rate 10/10/23 13:00 5 10/10/23 09:42 4 6 2 4 10/10/23 07:56 5 10/10/23 03:19 5 PG Care Time/CCT Total # of Minutes Spent Total Time Spent with Patient: Total time spent is greater than 50% in coordination of care (as documented) at patient's floor/unit and/or counseling patient: Coding Level of Care Code 33443 SUB INP/OBS CARE 3/50MIN Diagnoses Heart failure with reduced ejection fraction I50.20 Acute and chronic respiratory failure J96.20 Elevated troponin R79.89 Pulmonary fibrosis J84.10 Pulmonary hypertension I27.20 Hypertension I10 Hypertension type: unspecified Peripheral neuropathy G62.9 PSVT (paroxysmal supraventricular tachycardia) I47.1 GERD (gastroesophageal reflux disease) K21.9 IBS (irritable bowel syndrome) K58.9 Hypothyroidism E03.9 Bipolar disorder F31.9 (6) Hypertension Hypertension type: unspecified Qualified Code(s): I10 - Essential (primary) hypertension
[2023-10-10] MEDS ORDERED: FUROSEMIDE 40 MG/4 ML VIAL IV ONE ×2 (15:00→17:43)
[2023-10-10] MEDS: AMITRIPTYLINE HCL 25 MG TAB PO SCH (21:00)
[2023-10-10] MEDS: lamoTRIgine 100 MG TAB PO SCH (21:01)
[2023-10-11] MEDS: LEVOTHYROXINE SODIUM 137 MCG TABLET PO SCH (06:20)
[2023-10-11 07:11] LABS: BUN Creatinine Ratio 24.2 (10-20); Calcium 8.9 mg/dl (8.6-10.3); Creatinine Clr Calc Pharmacy 42.2 ml/min; Est GFR (African American) 47.7 ml/min; Est GFR (Non-African American) 41.1 ml/min; Potassium 3.5 mmol/L (3.5-5.1)
[2023-10-11] MEDS: busPIRone 5 MG TAB PO SCH ×3 (08:32→20:53)
[2023-10-11] MEDS: FUROSEMIDE 40 MG TAB PO SCH (08:32)
[2023-10-11] MEDS: CYANOCOBALAMIN (B-12) 500 MCG TABLET PO SCH (08:32)
[2023-10-11] MEDS: SILDENAFIL CITRATE 20 MG TABLET PO SCH ×2 (08:33→20:47)
[2023-10-11] MEDS: predniSONE 10 MG TABLET PO SCH (08:33)
[2023-10-11] MEDS: DOCUSATE SODIUM/SENNA 50/8.6MG TAB PO SCH (08:33)
[2023-10-11] MEDS: METOPROLOL SUCC 50MG EXT REL TAB PO SCH ×2 (08:33→20:45)
[2023-10-11] MEDS: PANTOprazole 40 MG TAB PO SCH ×2 (08:33→20:48)
[2023-10-11] MEDS: ENOXAPARIN INJ 40 MG/0.4 ML SYR SQ SCH ×2 (08:35→20:54)
[2023-10-11] MEDS: GABAPENTIN 100 MG CAP PO SCH ×2 (12:02→20:46)
[2023-10-11] MEDS: MYCOPHENOLATE MOFETIL 250 MG CAP PO SCH ×2 (12:02→20:49)
[2023-10-11] MEDS: TOPIRAMATE 100 MG TAB PO SCH ×2 (12:02→20:50)
[2023-10-11] MEDS ORDERED: FUROSEMIDE 40 MG/4 ML VIAL IV ONE (17:37)
[2023-10-11] MEDS ORDERED: POTASSIUM CHLORIDE CRTAB 20 MEQ TABCR PO STA (17:37)
--- NOTE | 2023-10-11 21:14 | Hospitalist Progress Note ---
Date of Service October 11, 2023 Assessment & Plan (1) Heart failure with reduced ejection fraction: Plan: Acute on chronic HFrEF, here with significant dyspnea, requiring more O2 than usual, elevated BNP, wheezing on exam cardiac vs pulm related - ECHO 06/2023 with reduced EF 35-40%, mild Pulm HTN - Heart failure related to fibrotic lung disease, tachycardia and LBBB. No WMAs to suggest ischemic disease - Repeat echocardiogram on 10/05 now with further reduced EF to 25-30% with global hypokinesis, moderate LVH, mild MR, mild to moderate PHTN 10/09 Patient has been diuresing well and was scheduled to transition to oral 10/09 but remains with some orthopnea, increased oxygen requirements from baseline of 3-4 L still at 5, and lower extremity edema not yet at dry weight. Patient did work with OT however had desaturation to 68% with exertion requiring increased oxygen and physical therapy was deferred while she was recovering from this. Seen by cardiology, agree with 40 mg IV Lasix today and transition tomorrow if improved. Repeat EF in 90 days, ICD referral if remains less than 35%. Patient is pending PT/OT [facility]. Do not recommend 10/09 due to desaturation and not yet at functional or volume baseline. Metoprolol titration deferred due to borderline hypotension, Entresto deferred due to borderline hypotension. Spironolactone/Entresto/SGLT2 inhibitor addition and metoprolol up titration should be followed up on as outpatient if not able to be performed during this day patient is otherwise improved for discharge Low-sodium diet Patient has caregivers normally at home however due to staffing issues has none in place currently. CM consulted. - Lower leg compression not tolerated via teds/compression socks, rio wraps applied. 10/10 patient with rapid desaturation with ambulation. Continues to have light crackles in the base with a history of IPF, but also has JVD 2 cm above the clavicle with HJR and lower extremity swelling consistent with volume overload slowly improving. Creatinine remains relatively stable approximately 1.21.3, diuresis continued. Discharge delayed due to significant oxygen requirements more than baseline on 2 setp -10/11 Patient clinically stable. Plan is to continue to diuerese. Updated daughter. Ordered additional lasix 40 mg IV x1. (2) Acute and chronic respiratory failure: Plan: on 5LNC at home, was dropping POx to the 70-80s with exertion prior to admission 2/2 CHF Wean oxygen to maintain O2 sats > 90% Continued diuresis. Remains with oxygen requirements above her normal baseline, multifactorial with fluid overload and history of fibrosis (3) Elevated troponin: Plan: Myocardial demand ischemia trop 184 on admission, with chest pressure associated with chest congestion/CHF Troponin peaked after admission at 243 ECG without ischemic changes Echo without wall motion abnormalities (4) Pulmonary fibrosis: Plan: She was supposed to be on prednisone 10mg daily but she had stopped taking it a couple of weeks ago-she thought she was supposed to stop it altogether. Pulmonary simply wanted her to start weaning down on it Continue prednisone 10 mg p.o. daily Duonebs prn Continue mycophenolate 750 Mg p.o. twice daily Sildenafil is relatively contraindicated in HFrEF as per discussion with pulmonology-wean off sildenafil-decrease dose to 10 Mg p.o. 3 times daily for 3 days, then 10 Mg p.o. twice daily for 3 days, then stop Follows with Dr. Romero as an outpatient Continue supplemental O2 Do not suspect acute exacerbation at this time given improvement and low CRP (5) Pulmonary hypertension: Plan: Secondary to pulmonary fibrosis (6) Hypertension: Plan: BPs controlled to mildly low likely from adrenal insufficiency-restarted prednisone and now improved continue diuresis and metoprolol (7) Peripheral neuropathy: Plan: continue gabapentin, Elavil (8) PSVT (paroxysmal supraventricular tachycardia): Plan: Was previously not on beta blockers-started Toprol-XL as above Continue to monitor on tele (9) GERD (gastroesophageal reflux disease): Plan: continue PPI (10) IBS (irritable bowel syndrome): Plan: continue Elavil (11) Hypothyroidism: Plan: TSH here normal in 08/2023 continue home LT4 (12) Bipolar disorder: Plan: continue BuSpar, Lamictal, Topamax Plan VTE prophylaxis - Lovenox 40 mg SQ BID (increased dose due to BMI greater than 40) Diet - low-sodium, fluid restricted diet Disposition - continue admission for further diuresis DNR/DNI as d/w patient. She would like her daughter to make decisions for her if unable to do so Admission and Anticipated Discharge Date Admission Date: October 04, 2023 Subjective 73 yo female reports no new symptoms. Review of Systems Review of Systems: All systems reviewed & are unremarkable except as noted in HPI & below Physical Exam Physical Exam: General: A&Ox3. NAD. Cooperative. HEENT: Atraumatic, normocephalic. Vision/hearing grossly intact Pulm: Bilateral basilar crackles which do not clear on deep inspiration symmetrical chest rise. No increased work of breathing. No respiratory distress. Cardiac: RRR, +sm. Radial pulses intact and symmetrical. Abdominal: Nontender, nondistended, soft. BS present. Extremities: Pitting edema 2+ in the lower extremities bilateral, slightly improved from prior with Rio wrap's Results & Data Results & Data Vital Signs (Past 12 Hours) Vital Signs Temp Pulse Resp BP Pulse Ox O2 Del Method O2 Flow Rate 10/11/23 19:40 37.1 C 99 H 18 97/69 L 97 Nasal Cannula 4 10/11/23 15:59 36.7 C 76 20 108/72 97 Nasal Cannula 5 10/11/23 15:20 Nasal Cannula 5 10/11/23 12:01 36.7 C 72 19 111/74 96 Nasal Cannula 2 PG Care Time/CCT Total # of Minutes Spent Total Time Spent with Patient: Total time spent is greater than 50% in coordination of care (as documented) at patient's floor/unit and/or counseling patient: Coding Level of Care Code 51153 SUB INP/OBS CARE 3/50MIN Diagnoses Heart failure with reduced ejection fraction I50.20 Acute and chronic respiratory failure J96.20 Elevated troponin R79.89 Pulmonary fibrosis J84.10 Pulmonary hypertension I27.20 Hypertension I10 Hypertension type: unspecified Peripheral neuropathy G62.9 PSVT (paroxysmal supraventricular tachycardia) I47.1 GERD (gastroesophageal reflux disease) K21.9 IBS (irritable bowel syndrome) K58.9 Hypothyroidism E03.9 Bipolar disorder F31.9 (6) Hypertension Hypertension type: unspecified Qualified Code(s): I10 - Essential (primary) hypertension
[2023-10-11] MEDS: lamoTRIgine 100 MG TAB PO SCH (22:11)
[2023-10-11] MEDS: AMITRIPTYLINE HCL 25 MG TAB PO SCH (22:12)
[2023-10-12] MEDS: LEVOTHYROXINE SODIUM 137 MCG TABLET PO SCH (06:14)
[2023-10-12] MEDS: predniSONE 10 MG TABLET PO SCH (10:04)
[2023-10-12] MEDS: PANTOprazole 40 MG TAB PO SCH (10:04)
[2023-10-12] MEDS: SILDENAFIL CITRATE 20 MG TABLET PO SCH (10:04)
[2023-10-12] MEDS: ENOXAPARIN INJ 40 MG/0.4 ML SYR SQ SCH (10:04)
[2023-10-12] MEDS: METOPROLOL SUCC 50MG EXT REL TAB PO SCH (10:05)
[2023-10-12] MEDS: FUROSEMIDE 40 MG TAB PO SCH (10:05)
[2023-10-12] MEDS: CYANOCOBALAMIN (B-12) 500 MCG TABLET PO SCH (10:06)
[2023-10-12] MEDS: busPIRone 5 MG TAB PO SCH ×2 (10:06→13:18)
[2023-10-12] MEDS: DOCUSATE SODIUM/SENNA 50/8.6MG TAB PO SCH (10:06)
[2023-10-12 11:16] LABS: Hematocrit (blood only) 38.9 % (37.0-47.0); Hemoglobin 11.6 g/dl (12.0-16.0); Mean Corpuscular Hemoglobin 24.9 pg (25.0-34.0); Mean Corpuscular Hgb Conc 29.8 g/dL (32.0-36.0); Mean Corpuscular Volume 83.7 fL (80.0-100.0); Mean Platelet Volume 11.6 fL (9.4-12.4); Platelet Count 343 K/uL (130-400); RDW Coefficient of Variation 16.5 % (11.5-14.5); RDW Standard Deviation 50.2 fL (36.4-46.3); Red Blood Count 4.65 M/uL (4.20-5.40); White Blood Count 11.18 K/ul (4.8-10.8)
[2023-10-12 11:24] LABS: BUN Creatinine Ratio 22.1 (10-20); Calcium 9.1 mg/dl (8.6-10.3); Creatinine Clr Calc Pharmacy 38.7 ml/min; Est GFR (African American) 42.8 ml/min; Est GFR (Non-African American) 36.9 ml/min; Potassium 3.6 mmol/L (3.5-5.1)
[2023-10-12] MEDS: TOPIRAMATE 100 MG TAB PO SCH (13:18)
[2023-10-12] MEDS: GABAPENTIN 100 MG CAP PO SCH (13:18)
[2023-10-12] MEDS: MYCOPHENOLATE MOFETIL 250 MG CAP PO SCH (13:18)
--- NOTE | 2023-10-13 17:23 | Discharge Summary ---
Date of Service October 12, 2023 Admission HPI Per Admitting Provider This pt is a 73 year old female w/ a h/o Pulm fibrosis/ILD on 5L NC chronic oxygen therapy, Pulm HTN, HFrEF, paroxysmal SVT, IBS, DMII, previous CVA, GERD, bipolar disorder, and hypothyroidism who presents to the hospital with progressively worsening shortness of breath and wheezing over the last 2 weeks.She is not sure if she gained weight at home. She is coughing up her usual amount of sputum and denies hemoptysis, fevers, or chills. She has noticed increased wheezing which is not improved with nebs. She noticed her POx was going in to the 70-80s with exertion at home and she felt like she was going to collapse and had chest pressure with exertion. Principal Diagnosis Heart failure Discharge Exam General: A&Ox3. NAD. Cooperative. HEENT: Atraumatic, normocephalic. Vision/hearing grossly intact Pulm: Bilateral basilar crackles which do not clear on deep inspiration symmetrical chest rise. No increased work of breathing. No respiratory distress. Cardiac: RRR, +sm. Radial pulses intact and symmetrical. Abdominal: Nontender, nondistended, soft. BS present. Extremities: Pitting edema 2+ in the lower extremities bilateral, slightly improved from prior with Rio wrap's Discharge Data Allergies Allergy/AdvReac Type Severity Reaction Status Date / Time latex Allergy Intermediate Rash, hand Verified 10/04/23 17:12 swelling Sulfa (Sulfonamide Allergy Intermediate Rash Verified 10/04/23 17:12 Antibiotics) Penicillins Allergy Unknown Unknown Verified 10/04/23 17:12 reaction (as teenager) morphine AdvReac Intermediate Anxiety Verified 10/04/23 17:12 Consultations 10/04/23 16:35 ED Decision to Admit Stat 10/04/23 17:06 ED Decision to Admit Stat 10/05/23 08:29 [facility] Referral Routine 10/05/23 17:40 Consult Cardiology Routine Hospital Course (1) Heart failure with reduced ejection fraction: Acute on chronic HFrEF, here with significant dyspnea, requiring more O2 than usual, elevated BNP, wheezing on exam cardiac vs pulm related - ECHO 06/2023 with reduced EF 35-40%, mild Pulm HTN - Heart failure related to fibrotic lung disease, tachycardia and LBBB. No WMAs to suggest ischemic disease - Repeat echocardiogram on 10/05 now with further reduced EF to 25-30% with global hypokinesis, moderate LVH, mild MR, mild to moderate PHTN 10/09 Patient has been diuresing well and was scheduled to transition to oral 10/09 but remains with some orthopnea, increased oxygen requirements from baseline of 3-4 L still at 5, and lower extremity edema not yet at dry weight. Patient did work with OT however had desaturation to 68% with exertion requiring increased oxygen and physical therapy was deferred while she was recovering from this. Seen by cardiology, agree with 40 mg IV Lasix today and transition tomorrow if improved. Repeat EF in 90 days, ICD referral if remains less than 35%. Patient is pending PT/OT at [facility]-step. Do not recommend 10/09 due to desaturation and not yet at functional or volume baseline. Metoprolol titration deferred due to borderline hypotension, Entresto deferred due to borderline hypotension. Spironolactone/Entresto/SGLT2 inhibitor addition and metoprolol up titration should be followed up on as outpatient if not able to be performed during this day patient is otherwise improved for discharge Low-sodium diet Patient has caregivers normally at home however due to staffing issues has none in place currently. CM consulted. - Lower leg compression not tolerated via teds/compression socks, rio wraps ap plied. 10/10 patient with rapid desaturation with ambulation. Continues to have light crackles in the base with a history of IPF, but also has JVD 2 cm above the clavicle with HJR and lower extremity swelling consistent with volume overload slowly improving. Creatinine remains relatively stable approximately 1.21.3, diuresis continued. Discharge delayed due to significant oxygen requirements more than baseline on 2 setp -10/11 Patient clinically stable. Plan is to continue to diuerese. Updated daughter. Ordered additional lasix 40 mg IV x1. On 10/12 Patient did another 2 step. 2 liters at rest and 6 liters on ambulation. Patient reports she tolerated her normal distance that she would walk at home, howver when she was pushd further, her sats went down below 88%. Discussed with patient, she feels comofrtable going home. Obtained a new portable oxygen tank that goes up to 6 liters. Discharge meds noted below (2) Acute and chronic respiratory failure: on 5LNC at home, was dropping POx to the 70-80s with exertion prior to admission 2/2 CHF Wean oxygen to maintain O2 sats > 90% Improved with diuresis. (3) Elevated troponin: Myocardial demand ischemia trop 184 on admission, with chest pressure associated with chest congestion/CHF Troponin peaked after admission at 243 ECG without ischemic changes Echo without wall motion abnormalities (4) Pulmonary fibrosis: She was supposed to be on prednisone 10mg daily but she had stopped taking it a couple of weeks ago-she thought she was supposed to stop it altogether. Pulmonary simply wanted her to start weaning down on it Continue prednisone 10 mg p.o. daily Duonebs prn Continue mycophenolate 750 Mg p.o. twice daily Sildenafil is relatively contraindicated in HFrEF as per discussion with pulmonology-wean off sildenafil-decrease dose to 10 Mg p.o. 3 times daily for 3 days, then 10 Mg p.o. twice daily for 3 days, then stop Follows with Dr. Romero as an outpatient Continue supplemental O2 Do not suspect acute exacerbation at this time given improvement and low CRP (5) Pulmonary hypertension: Secondary to pulmonary fibrosis (6) Hypertension: BPs controlled to mildly low likely from adrenal insufficiency-restarted prednisone and now improved continue diuresis and metoprolol (7) Peripheral neuropathy: continue gabapentin, Elavil (8) PSVT (paroxysmal supraventricular tachycardia): Was previously not on beta blockers-started Toprol-XL as above Continue to monitor on tele (9) GERD (gastroesophageal reflux disease): continue PPI (10) IBS (irritable bowel syndrome): continue Elavil (11) Hypothyroidism: TSH here normal in 08/2023 continue home LT4 (12) Bipolar disorder: continue BuSpar, Lamictal, Topamax Total Time Total Time Spent Total Time Spent (In Minutes): 32 Discharge Plan Discharge Items Patient Disposition: Home - Home Health Services Reason For Visit: ACUTE ON CHRONIC HFREF Discharge Diagnosis: Acute on chronic heart failure with reduced ejection fraction Condition on Discharge: Fair Activity: Resume your previous activity Non-emergency contact: Bottom Sprayer Call non-emergency contact if: you have any medication questions and your symptoms worsen Follow-up/Referrals: Ted Singh MD [Primary Care Provider] - Rosie Velasquez PAGregC [Physician Magento Developer] - 10/16/23 11:00 am (Congestive Heart Failure Program Appointment Information Early follow up is essential to managing your heart failure. An appointment has been scheduled for you with the [facility] Heart [facility] Program within 7 days of discharge. Anticipate this visit to be 30-60 minutes long. Please expect a intelligence clerk phone call from one of our nurses approximately 48 hours from discharge. They will also be placing an order for lab work to be completed 1-2 days prior to your heart failure follow up appointment. Please be sure to have this done so we can go over the results when you come in. Office Location The cardiology office building is located in front of the hospital at [address] [facility]. Bring the following with you to your follow-up doctor appointments: Please bring your daily weight log any discharge paperwork all of your medication bottles with you to this visit. ) Lolita Constantino, ALFONSO [Nurse Practitioner] - (Palliative care establish appointment) Diet: Low Sodium (2gm) Fluids: 1500ml (6 cups) Addtl Attending Provider Instructions: You were admitted to [facility] from October 04 to 2022 due to shortness of breath. You were diagnosed with acute on chronic heart failu re with reduced ejection fraction. This was treated with intravenous Lasix. Your sildenafil was weaned during her inpatient stay and then stopped as discussed with your saddle lining stitcher due to relative contraindication with your heart failure. You were started on metoprolol succinate which was uptitrated during her inpatient stay. Please continue this on discharge and follow-up with your automatic washer mechanic for ongoing chronic heart failure management. Please follow-up with the heart failure clinic for ongoing adjustments of your Lasix. Please follow-up with palliative care for ongoing discussions regarding how to best support you at home. 6 liters of oxygen on ambulation 2 liters at rest. Pending Studies at Discharge: No Stand-Alone Forms: [facility], Sm[facility] Cessation Medications and DC Order Prescriptions: New metoprolol succinate 50 mg Tablet Extended Release 24 Hr 50 mg PO BID Qty: 60 0RF furosemide 40 mg Tablet 40 mg PO QAM Qty: 30 0RF Continued amitriptyline 25 mg tablet 25 mg PO HS Qty: 90 3RF pantoprazole 40 mg tablet,delayed release (DR/EC) 40 mg PO BID Qty: 30 2RF levothyroxine 137 mcg tablet 137 mcg PO QAM buspirone 10 mg tablet 10 mg PO TID cyanocobalamin (vitamin B-12) 1,000 mcg capsule 1,000 mcg PO QAM gabapentin 100 mg Capsule 100 mg PO BID Rx Instructions: TAKES 100 MG AT 1200 & HS topiramate 100 mg Tablet 100 mg PO BID Rx Instructions: TAKES AT 1200 & HS lamotrigine 150 mg tablet 150 mg PO HS acetaminophen [Tylenol] 325 mg Tablet 650 mg PO QID PRN (Reason: Pain) prednisone 10 mg tablet 10 mg PO DAILY mycophenolate mofetil 250 mg capsule 750 mg PO BID Rx Instructions: TAKES AT 1200 & HS albuterol sulfate 90 mcg/actuation HFA aerosol inhaler 2 inh inhalation Q4H PRN (Reason: shortness of breath or wheezing) Discontinued sildenafil (pulm.hypertension) [Revatio] 20 mg tablet 20 mg PO TID Qty: 90 3RF Rx Instructions: TAKES 1200, QPM, & HS furosemide 20 mg tablet 20 mg PO DAILY Rx Instructions: ORDER 10/04/23 FOR 5 DAYS, EXT MED HX---20 MG DAILY ORDERED 09/04/23 Discharge Orders: Discharge Order- CHF (Routine); Ordered 10/12/23 Ordered By: Dioni Ortiz Admission Data Admit Date/Time: 10/04/23 17:37 Attending Provider: Dioni Ortiz Admit Provider: Basia Mart Primary Care Provider: Ted Singh Other Providers: Dell Harden; Basia Mart; Rosie Velasquez; Jamie Morrow; [facility] Other Interventions: Discharge Summary Assessment (RN) Last Done: 10/12/23 17:35 Coding Level of Care Code 53642 INP/OBS DISCH >30 MIN Diagnoses Heart failure with reduced ejection fraction I50.20 Acute and chronic respiratory failure J96.20 Elevated troponin R79.89 Pulmonary fibrosis J84.10 Pulmonary hypertension I27.20 Hypertension I10 Hypertension type: unspecified Peripheral neuropathy G62.9 PSVT (paroxysmal supraventricular tachycardia) I47.1 GERD (gastroesophageal reflux disease) K21.9 IBS (irritable bowel syndrome) K58.9 Hypothyroidism E03.9 Bipolar disorder F31.9
== END 2023-10-12 17:36 | disposition home health service (06) | DRG 291 ==
LOC: SUATTDRO → ED 14:53 → SUATTDRO 17:37 → 4W 17:37

== ENCOUNTER 2024-08-07 12:12 | Inpatient (IN) ==
[2024-08-07] MEDS: NALOXONE HCL 0.4 MG/1 ML VIAL/CARP IV STA (12:57)
--- NOTE | 2024-08-07 12:58 | Emergency Department Note ---
Impression & Plan SOB (shortness of breath), CHF (congestive heart failure), Peritoneal carcinoma, Fall, Medication overdose, IPF (idiopathic pulmonary fibrosis), Acute shoulder pain ED Provider Note NAME: MOHINI AMEZCUA AGE: 74 SEX: F : 1950 ARRIVES VIA: Ambulance INFORMANT: Patient, son ED PROVIDER(S): Kulwant Stevenson MD CHIEF COMPLAINT: Decreased mentation, fall MEDICAL DECISION MAKING: Patient presented due to concern for decreased mentation. IV was established and blood work was obtained. There were concerns for polypharmacy so the patient was given 0.2 of IV Narcan. Blood work shows a white count of 12 with a normal H&H and platelet count. The patient's kidney function with creatinine 1.4. TSH normal. Urinalysis does not show evidence of obvious blood or infection BioFire is negative. I did speak with the patient's son and [id number] who presented to bedside. They were concerned as to why the patient was brought here in the first place. After further discussion it sounds as though the patient unfortunately is unable to receive additional care through hospice provided she does not have 24-hour care from a caregiver. Currently only having about 8 hours of care. Does require placement and possible additional needs at this time. Family and patient are comfortable current plan of care. CT head chest x-ray and shoulder x-ray negative. The patient also complained of some left shoulder pain send x-ray was ordered and the patient was ordered medications. X-ray shoulder negative. I did speak the on-call hospitalist service and the patient was admitted to the medicine service. Critical Care: I have personally spent 35 minutes of critical care time in direct management of this patient. This includes bedside care, interpretation of diagnostic studies, and testing, discussion with consultants, patient, and family members, and other require inpatient management activities. This 35 minutes is in excess of all separately billable procedures. Discussion w/ other healthcare providers: Dr. Hawk inpatient medicine service Prior /Outside records reviewed: None Differential diagnosis: Fracture, dislocation, contusion, strain, sprain, ICH, hemothorax, intra- abdominal injury, anemia among other causes were considered. Diagnostics, as interpreted by me: ECG: Sinus with first-degree AV block, rate of 64 borderline QRS, left axis deviation prolonged UT no obvious ST elevations. Cardiac monitoring: An order was placed for continuous cardiac monitoring. The monitor shows a rate of 65 with sinus rhythm. Patient was placed on pulse oximetry Medical decision rules: None Imaging studies: I informally interpreted the patient's chest x-ray does not show obvious pneumonia with formal report to follow. HPI: Patient presents due to concern for weakness and fall. The patient believes that she try to get up around 4:00 this morning and had a fall. The patient is unsure as to whether or not she struck her head but does complain of some mild left-sided hip pain as well as arm pain. Per the caregiver the patient reportedly took Dilaudid as well as Ativan around 9:00 this morning.EMS reported that the patient fell around 430. She initially refused transport and then excepted the second time. After she fell and got up she did take the Dilaudid and Ativan per the caregiver. Has been sleepier sleepy since that time. Patient does wear oxygen at all times for known history of interstitial lung disease. The patient does not believe that she wears she takes any blood thinning medications. Per review of the PDMP the patient does have Dilaudid p.o. Ativan p.o. and fentanyl patches. Per review of the medical records the patient does have a known history of colon cancer with peritoneal carcinomatosis and reportedly is on hospice care. Patient was brought in today as hospice did not believe that they can care for the patient and the patient did not have a 24-hour caregiver. PAST MEDICAL HISTORY: See Below PAST SURGICAL HISTORY: See Below SOCIAL HISTORY: See Below HOME MEDICATIONS: See Below ALLERGIES: See Below VITALS: See Below PHYSICAL EXAMINATION: GENERAL: NAD, non-toxic. Nasal cannula in place. EYE EXAM: Normal conjunctiva. PERRL, no anisocoria and EOM's grossly intact w/o pain. OROPHARYNX: Moist mucus membranes, grossly normal dentition. NECK: Trachea midline, no stridor. Supple, no nuchal rigidity, no adenopathy, non-tender. No signs of meningismus. FROM of the neck with good chin to chest and neck extension. LUNGS: Clear to auscultation. Normal chest wall mechanics. HEART: NSR, no MRG. ABDOMEN: Abdomen soft, non-tender, no masses, no rebound or guarding. BACK: No CVA TTP. SKIN: No rashes and no bruising. UPPER EXTREMITIES: Mild reproducible left shoulder pain without obvious deformity neurovasc intact distally. LOWER EXTREMITIES: Grossly normal, no edema. NEURO EXAM: GCS 14 opens eyes to voice, cranial nerves II-XII grossly intact, normal speech, moves all 4 extremities. Past Med/Surg History Problem List (Updated 08/08/24 @ 15:28 by Kulwant Stevenson MD) Acute shoulder pain (Acute) Medication overdose (Acute) Unable to care for self Bipolar disorder Fall (Acute) Peritoneal carcinoma (Acute) Chronic hypoxic respiratory failure, on home oxygen therapy Peritoneal carcinomatosis Ambulatory dysfunction Pedal edema (Acute) CHF (congestive heart failure) (Acute) Elevated troponin (Acute) SOB (shortness of breath) (Acute) Major depressive disorder Cardiomyopathy Hypertension (Acute) Elevated troponin (Acute) SOB (shortness of breath) (Acute) Acute exacerbation of congestive heart failure Chronic kidney disease, stage 3a Peripheral neuropathy Heart failure with reduced ejection fraction Acute and chronic respiratory failure Localized swelling of both lower legs Pulmonary hypertension Post-nasal drip Acute dyspnea Weight gain Secondary pulmonary hypertension Dyspnea (Acute) COVID-19 (Acute) Status post revision of total replacement of right knee (~03/2022) Encounter for pre-operative examination Daytime sleepiness Chronic dyspnea Chronic hypoxemic respiratory failure (Acute) Pneumonitis Acute exacerbation of idiopathic pulmonary fibrosis (Acute) Hypoxia Failure of outpatient treatment (Acute) Pulmonary fibrosis (Acute) Weakness (Acute) SOB (shortness of breath) (Acute) Osteoarthritis of left knee Peritoneal lesion Abdominal ultrasound, abnormal IPF (idiopathic pulmonary fibrosis) Encounter for interrogation of cardiac recorder Closed patellar dislocation Expressive aphasia (Acute) Right arm weakness (Acute) CVA (cerebral vascular accident) (Acute 2020) Abnormal Chest X-Ray Dyspnea Tendinitis of both rotator cuffs Bilateral primary osteoarthritis of knee Abnormal EKG LBBB (left bundle branch block) Asthma Stable Post traumatic stress disorder PSVT (paroxysmal supraventricular tachycardia) pt denies/unaware Diabetes mellitus type II, controlled pt denies Pulmonary edema Chronic cough Diffuse myofascial pain syndrome Chronic low back pain Status post bronchoscopy With BAL 08/01/[address] Romero at [facility] Interstitial lung disease follows with [facility] (PRN) On home oxygen therapy 2-3L at rest/5L with activity Hyperglycemia Hx mild hyperglycemia under surveillance by PCP. Most recent A1C 5.6% (06/12/21) -- pt reports no continued issues at this time (08/06/2023) Pulmonary hypertension Moderately elevated estimated RVSP (RVSP 40-50mmhg) per 01/19/22 echo IPF (idiopathic pulmonary fibrosis) (Acute) Bipolar disorder Left bundle branch block Follows with [facility] cardiology Spinal stenosis Osteopenia IBS (irritable bowel syndrome) Intermittent flares - takes Amitriptyline and Protonix for GI pain control GERD (gastroesophageal reflux disease) Hypothyroidism (Chronic) Medical History Leukocytosis Elevated brain natriuretic peptide (BNP) level Pedal edema Fluid overload Exertional dyspnea Elevated troponin Secondary pulmonary hypertension Congestive heart failure Arrhythmia ? hx of a. fib- on Eliquis per cardiology -- hx of having a Loop Recorder in 2021 with no evidence of A.fib on the recorder at the time. no current treatment Anxiety and depression History of blood transfusion Post-op 2017 Cerebrovascular accident (CVA) of left thalamus 06/11/2021 (post-op Right TKA) > POD#1 ischemic left thalamic stroke CVA with right sided weakness History of COVID-19 12/2020 > fully recovered Shortness of breath Surgical History Status post right knee replacement (~05/2021) History of cataract surgery S/P revision of total knee 03/2022 at [facility] (Right TKA) History of loop recorder has since been removed in 09/2022 at [facility] [place] History of total knee replacement Right TKA (06/10/21): SAB at L4-5 (x1 attempt) + PNB at [facility] History of surgery Right Quadriceps Repair (06/14/21): LMA#4 at [facility]. No issues noted per post-op anesthesia progress note. History of anesthesia reaction "Slow to wake" x1 episode after 3 hour surgery in 2017- she states she became violent and upset, hallucinated while waking up. Began to calm down once she heard her daughter's voice. History of hernia surgery History of colonoscopy History of arthroscopy R/L knee History of cholecystectomy Status post gastric banding surgery + removal History of hysterectomy Family History Family/Other No problems noted. Mother Colon cancer Dementia Father , at age 79 from mesothelioma. Mesothelioma Sister No problems noted. Sister No problems noted. Son No problems noted. Daughter No problems noted. Other Family history of diabetes mellitus in father Denies family history of Ovarian cancer Prostate cancer Myocardial infarction Breast cancer Social History Smoking Status: Never smoker Tobacco Type: Cigarettes Age Started Using Tobacco: 34; Age Quit Using Tobacco: 49; packs per day: 1; Second Hand Exposure: No; Do You Dip or Chew Tobacco: No; Hx Alcohol Use: No Hx Substance Use: No Preferred Language: Lithuanian Communication Ability: Effective Visual Impairment: No Limitations Coremaking Machine Setter Required: No Beliefs That Will Affect Care: None marital status: Single Current Living Situation: Alone Current Living Situation Comment: Lives alone at home with 48 hours of in home care provided through an agncy current occupational status: retired Other Information That Helps Us Care for You: No Feels Safe at Home: Yes Safety Concerns: Feels Safe At This Time Childhood Exposure to Second-Hand Smoke: Yes Dental Care, Regularly: Yes Physical Activity Frequency: Daily Seatbelt Use: always Sunscreen Use: No Assistive Devices: Glasses, Oxygen - Continuous and Wheelchair Allergies Allergies Allergy/AdvReac Type Severity Reaction Status Date / Time latex Allergy Intermediate Rash, hand Verified 06/19/24 16:12 swelling Sulfa (Sulfonamide Allergy Intermediate Rash Verified 06/19/24 16:12 Antibiotics) Penicillins Allergy Unknown Unknown Verified 06/19/24 16:12 reaction (as teenager) morphine AdvReac Intermediate Anxiety Verified 06/19/24 16:12 Home Meds Home Medications Medication Instructions Recorded Confirmed buspirone 10 mg tablet 10 mg PO TID 03/02/23 06/19/24 levothyroxine 137 mcg tablet 137 mcg PO QAM 03/02/23 06/19/24 acetaminophen 325 mg tablet 650 mg PO QID PRN Pain 06/14/23 06/19/24 (Tylenol) lamotrigine 150 mg tablet 150 mg PO HS 06/14/23 06/19/24 cyanocobalamin (vitamin B-12) 1,000 mcg PO QAM 08/06/23 06/19/24 1,000 mcg capsule gabapentin 100 mg capsule 100 mg PO BID 08/06/23 06/19/24 topiramate 100 mg tablet 100 mg PO BID 08/06/23 06/19/24 semaglutide 0.25 mg or 0.5 mg (2 mg subcut 03/04/24 06/19/24 mg/3 mL) subcutaneous pen injector (Ozempic) diphenhydramine HCl 25 mg capsule 25 mg PO Q8H PRN Itching 08/07/24 (Benadryl) docusate sodium 100 mg capsule 100 mg PO BID 08/07/24 (Colace) fentanyl 25 mcg/hr transdermal 25 mcg topical Q72H 08/07/24 patch haloperidol lactate 2 mg/mL oral 1 mg PO Q4H PRN n/v, agitation 08/07/24 concentrate hyoscyamine sulfate 0.125 mg tablet 0.125 mg PO Q4H PRN terminal 08/07/24 secretions ipratropium 0.5 mg-albuterol 3 mg 3 ml inhalation Q6H PRN sob 08/07/24 (2.5 mg base)/3 mL nebulization soln lorazepam 1 mg tablet 0.5 mg PO Q4H PRN restless/insomnia 08/07/24 sodium chloride-aloe vera nasal 2 spray intranasal Q4H PRN dry 08/07/24 spray (Hilger Saline Gel nasal spray) nostril Previous Rx's Medication Instructions Recorded amitriptyline 25 mg tablet 25 mg PO HS #90 tabs 09/26/21 furosemide 40 mg tablet 40 mg PO QAM #30 tabs 10/12/23 metoprolol succinate 50 mg 50 mg PO BID #60 tabs 10/12/23 tablet,extended release 24 hr furosemide 40 mg tablet (Lasix) 40 mg PO DAILY PRN weight gain, 11/09/23 edema, SOB #30 tabs albuterol sulfate 90 mcg/actuation 2 inh inhalation Q4H PRN shortness 12/04/23 aerosol inhaler of breath or wheezing #6.7 grams pantoprazole 40 mg tablet,delayed 40 mg PO BID #60 tabs 01/01/24 release empagliflozin 10 mg tablet 10 mg PO DAILY #30 tabs 01/14/24 (Jardiance) spironolactone 25 mg tablet 25 mg PO DAILY #90 tabs 01/24/24 prednisone 2.5 mg tablet 7.5 mg (3 x 2.5 mg) PO DAILY #90 04/21/24 tabs Oxygen Home #6 L 05/15/24 Portable Oxygen #1 ea 05/15/24 mycophenolate mofetil 250 mg 250 mg PO BID #180 caps 07/12/24 capsule sacubitril 49 mg-valsartan 51 mg 1 tab PO BID #180 tabs 07/15/24 tablet (Entresto) Results & Data (ED) Vital Signs Vital Signs - 24 hr 08/07/24 15:27 08/07/24 15:36 08/07/24 16:00 Pulse Rate 71 70 70 Pulse Rate from SpO2 Sensor 70 70 71 Respiratory Rate 18 18 20 Blood Pressure 133/80 133/80 Blood Pressure Mean 97 97 Pulse Oximetry 98 99 98 Oxygen Delivery Method Nasal Cannula Oxygen Flow Rate 4 08/07/24 16:42 08/07/24 16:51 08/07/24 17:00 Pulse Rate 70 70 68 Pulse Rate from SpO2 Sensor Respiratory Rate 14 15 18 Blood Pressure Blood Pressure Mean Pulse Oximetry Oxygen Delivery Method Oxygen Flow Rate Home Medications Current Medication List: was personally reviewed by me Laboratory Data Attestation: I reviewed the patient's lab results. 08/08/24 06:05 08/08/24 06:05 Lab Results 08/07/24 08/07/24 Range/Units 12:48 15:15 WBC 12.63 H (4.8-10.8) K/ul RBC 4.67 (4.20-5.40) M/uL Hgb 12.7 (12.0-16.0) g/dl Hct 41.0 (37.0-47.0) % MCV 87.8 (80.0-100.0) fL MCH 27.2 (25.0-34.0) pg MCHC 31.0 L (32.0-36.0) g/dL RDW Std Deviation 45.3 (36.4-46.3) fL RDW Coeff of Ese 14.3 (11.5-14.5) % Plt Count 271 (130-400) K/uL MPV 11.0 (9.4-12.4) fL Immature Gran % (Auto) 1.7 % Neut % (Auto) 68.2 % Lymph % (Auto) 16.2 % [place] % (Auto) 7.2 % Eos % (Auto) 6.0 % Baso % (Auto) 0.7 % Neut # (Auto) 8.61 H (1.40-6.50) K/uL Lymph # (Auto) 2.05 (1.20-3.40) K/uL [place] # (Auto) 0.91 H (0.11-0.59) K/uL Eos # (Auto) 0.76 H (0.00-0.50) K/uL Baso # (Auto) 0.09 (0.00-0.20) K/uL Immature Gran # (Auto) 0.21 H (0.01-0.20) K/uL Sodium 138 (136-145) mmol/L Potassium 3.5 (3.5-5.1) mmol/L Chloride 104 (98-107) mmol/L Carbon Dioxide 28 (21-32) mmol/L Anion Gap 6 (3-11) BUN 25 H (6-23) mg/dl Creatinine 1.42 H (0.6-1.2) mg/dl Est Cr Clr Drug Dosing 42.1 ml/min eGFR 38.57 BUN/Creatinine Ratio 17.6 (10-20) Glucose 97 (70-99(Fasting)) mg/dl Calcium 9.1 (8.6-10.3) mg/dl Total Bilirubin 0.5 (0.2-1.0) mg/dl AST 41 H (13-39) U/L ALT 37 (7-52) U/L Alkaline Phosphatase 122 H (34-104) U/L Total Protein 6.7 (6.0-8.3) gm/dl Albumin 3.7 (3.4-5.0) gm/dl Globulin 3.0 (2.5-4.0) gm/dl Albumin/Globulin Ratio 1.2 (0.9-2) TSH 3.220 (0.300-4.500) uIu/ml Urine Color Yellow Urine Appearance Clear (Clear) Urine pH 5.5 (4.5-7.5) Ur Specific [place]ang 1.025 (1.000-1.030) Urine Protein Negative (Negative) Urine Glucose (UA) 2+ H (Negative) Urine Ketones Trace H (Negative) Urine Blood Negative (Negative) Urine Nitrite Negative (Negative) Urine Bilirubin Negative (Negative) Urine Urobilinogen Negative (Negative) Ur Leukocyte Esterase Negative (Negative) Adenovirus (PCR) Not Detected (NotDetected) B. pertussis DNA (PCR) Not Detected (NotDetected) B.parapertussis DNA PCR Not Detected (NotDetected) C. pneumoniae DNA (PCR) Not Detected (NotDetected) Coronavirus OC43 (PCR) Not Detected (NotDetected) Coronavirus HKU1 (PCR) Not Detected (NotDetected) Coronavirus 229E (PCR) Not Detected (NotDetected) SARS-CoV-2 (PCR) Not Detected (NotDetected) Coronavirus NL63 (PCR) Not Detected (NotDetected) Human Metapneumovir PCR Not Detected (NotDetected) Influenza Type A (PCR) Not Detected (NotDetected) Influenza Type B (PCR) Not Detected (NotDetected) M. pneumoniae (PCR) Not Detected (NotDetected) Parainfluenza 1 (PCR) Not Detected (NotDetected) Parainfluenza 2 (PCR) Not Detected (NotDetected) Parainfluenza 3 (PCR) Not Detected (NotDetected) Parainfluenza 4 (PCR) Not Detected (NotDetected) RSV (PCR) Not Detected (NotDetected) Entero/Rhino (PCR) Not Detected (NotDetected) Administered Medications Amitriptyline HCl (Amitriptyline Hcl 25 Mg Tab) 25 mg PO HS IONA Stop: 09/06/24 21:59 Last Admin: 08/07/24 22:25 Dose: 25 mg Documented By: AUSTEN Buspirone HCl (Buspirone 5 Mg Tab) 10 mg PO TID IONA Stop: 09/06/24 21:59 Last Admin: 08/08/24 14:18 Dose: 10 mg Documented By: Admin: 08/08/24 08:10 Dose: 10 mg Documented By: Admin: 08/07/24 22:25 Dose: 10 mg Documented By: AUSTEN Fentanyl (Fentanyl 25 Mcg/Hr Tdsy) 1 patch TD Q72H IONA Stop: 08/22/24 08:59 Last Admin: 08/08/24 08:14 Dose: 1 patch Documented By: AV Furosemide (Furosemide 40 Mg Tab) 40 mg PO QAM IONA Stop: 09/07/24 08:59 Last Admin: 08/08/24 08:11 Dose: 40 mg Documented By: ATIYA Gabapentin (Gabapentin 100 Mg Cap) 100 mg PO BID@1200,2100 [facility] Stop: 09/06/24 21:59 Last Admin: 08/08/24 11:56 Dose: 100 mg Documented By: Admin: 08/07/24 22:24 Dose: 100 mg Documented By: AUSTEN Heparin Sodium (Porcine) (Heparin Sod 5,000 Unit/0.5 Ml Vial) 5,000 units SQ Q8 IONA Stop: 09/06/24 21:59 Last Admin: 08/08/24 14:19 Dose: Not Given Documented By: Admin: 08/08/24 05:29 Dose: Not Given Documented By: Admin: 08/07/24 22:00 Dose: Not Given Documented By: AUSTEN Lamotrigine (Lamotrigine 100 Mg Tab) 150 mg PO HS IONA Stop: 09/06/24 21:59 Last Admin: 08/07/24 22:23 Dose: 150 mg Documented By: AUSTEN Levothyroxine Sodium (Levothyroxine Sodium 137 Mcg Tablet) 137 mcg PO DAILYBB IONA Stop: 09/07/24 06:29 Last Admin: 08/08/24 05:29 Dose: 137 mcg Documented By: AUSTEN Metoprolol Succinate (Metoprolol Succ 50mg Ext Rel Tab) 50 mg PO QAM IONA Stop: 09/07/24 08:59 Last Admin: 08/08/24 08:10 Dose: 50 mg Documented By: Yusufaneous (Fentanyl Patch Remove & Waste) 1 each N/A Q72H IONA Stop: 09/07/24 08:58 Last Admin: 08/08/24 08:11 Dose: Not Given Documented By: Multani (Check Fentanyl Patch Placement) 1 each N/A QS IONA Stop: 09/07/24 00:00 Last Admin: 08/08/24 08:11 Dose: Not Given Documented By: Admin: 08/08/24 00:22 Dose: Not Given Documented By: AUSTEN Mycophenolate Mofetil (Mycophenolate Mofetil 250 Mg Cap) 250 mg PO BID@1200,2100 [facility] Stop: 09/06/24 21:59 Last Admin: 08/08/24 11:56 Dose: 250 mg Documented By: Admin: 08/07/24 22:23 Dose: 250 mg Documented By: AUSTEN Pantoprazole Sodium (Pantoprazole 40 Mg Tab) 40 mg PO BID IONA Stop: 09/06/24 21:59 Last Admin: 08/08/24 08:10 Dose: 40 mg Documented By: Admin: 08/07/24 22:23 Dose: 40 mg Documented By: AUSTEN Prednisone (Prednisone 10 Mg Tablet) 10 mg PO DAILY IONA Stop: 09/07/24 08:59 Last Admin: 08/08/24 08:11 Dose: 10 mg Documented By: ATIYA Sacubitril/Valsartan (Valsartan/Sacubitril 51/49 Mg Tab) 1 tab PO BID IONA Stop: 09/06/24 21:59 Last Admin: 08/08/24 08:10 Dose: 1 tab Documented By: Admin: 08/07/24 22:22 Dose: 1 tab Documented By: AUSTEN Sodium Chloride (Sodium Chloride 0.65% Na Soln 45 Ml ([place])) 1 sprays NA Q4H PRN PRN Reason: Congestion Stop: 09/07/24 13:57 Last Admin: 08/08/24 14:18 Dose: 1 sprays Documented By: ATIYA Spironolactone (Spironolactone 25 Mg Tab) 25 mg PO DAILY IONA Stop: 09/07/24 08:59 Last Admin: 08/08/24 08:11 Dose: 25 mg Documented By: ATIYA Topiramate (Topiramate 100 Mg Tab) 100 mg PO BID IONA Stop: 09/06/24 21:59 Last Admin: 08/08/24 08:10 Dose: 100 mg Documented By: Admin: 08/07/24 22:23 Dose: 100 mg Documented By: AUSTEN Discontinued Medications Acetaminophen (Ofirmev) 1,000 mg in 100 mls @ 400 mls/hr IV NOW STA Stop: 08/07/24 15:15 Last Infusion: 08/07/24 16:14 Dose: Infused Documented By: Admin: 08/07/24 15:17 Dose: 400 mls/hr Documented By: Lidocaine (Lidocaine 5% 1 Patch) 1 patch TD NOW STA Stop: 08/07/24 15:02 Last Admin: 08/07/24 15:17 Dose: 1 patch Documented By: Lidocaine (Lidocaine 5% 1 Patch) 1 patch TD NOW STA Stop: 08/08/24 13:59 Last Admin: 08/08/24 14:19 Dose: 1 patch Documented By: ATIYA Menthol (Cough Drop (Sugar Free) Kimberlyn 24 Kimberlyn/1 Box) Confirm Administered Dose 24 kimberlyn BUCCAL .STK-MED ONE Stop: 08/08/24 14:17 Last Admin: 08/08/24 14:18 Dose: 24 kimberlyn Documented By: ATIYA Miscellaneous (Remove Lidoderm Patch) 1 each N/A DAILY@2100 IONA Stop: 09/06/24 20:59 Last Admin: 08/07/24 21:19 Dose: Not Given Documented By: RES Naloxone HCl (Naloxone Hcl 0.4 Mg/1 Ml Vial/Carp) 0.2 mg IV NOW STA Stop: 08/07/24 12:42 Last Admin: 08/07/24 12:57 Dose: 0.2 mg Documented By: MSG Imaging Data Radiologist's Impression: Chest X-Ray 08/07/24 12:41 XR chest 1V portable HISTORY: 74 years-old Female weakness COMPARISON: 11/12/[address] TECHNIQUE: AP view of the chest FINDINGS: Cardiac silhouette is enlarged. Chronic interstitial lung disease. No pneumothorax, pleural effusion or lobar airspace consolidation. Degenerative changes of the shoulders and spine. IMPRESSION: 1. No acute process. 2. Cardiomegaly with chronic interstitial lung disease. ACT 112: Negative or not required by law. The above report was generated using voice recognition software. It may contain grammatical, syntax or spelling errors. Electronically signed by: Osvaldo Malone M.D. 08/07/2024 1:[address] 08/07/24 12:41 CT head/brain wo con CLINICAL HISTORY: 74 years-old Female with fall. Acute trauma status post fall TECHNIQUE: Multiple axial CT images of the head were obtained without contrast. A dose lowering technique was utilized adhering to the principles of ALARA. CT DOSE: 547.75 mGy.cm COMPARISON: 06/11/2021 FINDINGS: No acute intracranial hemorrhage, midline shift, intracranial mass, hydrocephalus, territorial ischemia or abnormal extra-axial collection. Additional changes probable mild chronic microvascular ischemic disease. Mildly motion degraded exam. Chronic left thalamic lacunar infarct. The calvarium is intact. Prior bilateral The paranasal sinuses, mastoid air cells, and middle ear cavities are clear. IMPRESSION: No acute intracranial abnormality or calvarial fracture. ACT 112: Negative or not required by law. The above report was generated using voice recognition software. It may contain grammatical, syntax or spelling errors. Electronically signed by: Osvaldo Malone M.D. 08/07/2024 1:50 PM Shoulder X-Ray 08/07/24 15:01 XR shoulder LT min 2V routine CLINICAL HISTORY: pain post fall TECHNIQUE: 3 views of the left shoulder were obtained. Comparison: None available at the time of this dictation. FINDINGS: There is no evidence of an acute fracture. Degenerative changes are seen in the glenohumeral joint. The overlying soft tissues are unremarkable. The visualized portions of the lungs are clear. IMPRESSION: Degenerative changes without evidence of acute abnormality. ACT 112: Negative or not required by law. Electronically signed by: Nilesh Joshi M.D. 08/07/2024 4:23 PM Discharge Plan Visit Data Chief Complaint: Lethargic Stated Complaint: Lethargy ED Provider: Kulwant Stevenson Discharge Problem: SOB (shortness of breath), CHF (congestive heart failure), Peritoneal carcinoma, Fall, Medication overdose, IPF (idiopathic pulmonary fibrosis), Acute shoulder pain Patient Disposition: Admitted As Inpatient Discharge Instructions Interventions: ED Discharge Assessment Last Done: 08/07/24 20:59 Discharge Problem: CHF (congestive heart failure) Qualifiers: Heart failure type: unspecified Heart failure chronicity: unspecified Qualified Code(s): I50.9 - Heart failure, unspecified Fall Qualifiers: Encounter type: initial encounter Qualified Code(s): W19.XXXA - Unspecified fall, initial encounter Medication overdose Qualifiers: Encounter type: initial encounter Injury intent: accidental or unintentional Q ualified Code(s): T50.901A - Poisoning by unspecified drugs, medicaments and biological substances, accidental (unintentional), initial encounter Acute shoulder pain Qualifiers: Laterality: left Qualified Code(s): M25.512 - Pain in left shoulder
--- NOTE | 2024-08-07 13:12 | XRay Report ---
XR chest 1V portable HISTORY: 74 years-old Female weakness COMPARISON: 11/12/[address] TECHNIQUE: AP view of the chest FINDINGS: Cardiac silhouette is enlarged. Chronic interstitial lung disease. No pneumothorax, pleural effusion or lobar airspace consolidation. Degenerative changes of the shoulders and spine. IMPRESSION: 1. No acute process. 2. Cardiomegaly with chronic interstitial lung disease. ACT 112: Negative or not required by law. The above report was generated using voice recognition software. It may contain grammatical, syntax o r spelling errors. Electronically signed by: Osvaldo Malone M.D. 08/07/2024 1:11 PM
[2024-08-07 13:24] LABS: Albumin Globulin Ratio 1.2 (0.9-2); Albumin Level 3.7 gm/dl (3.4-5.0); BUN Creatinine Ratio 17.6 (10-20); Basophils # (auto) 0.09 K/uL (0.00-0.20); Basophils % (auto) 0.7 %; Bilirubin,Total 0.5 mg/dl (0.2-1.0); Calcium 9.1 mg/dl (8.6-10.3); Creatinine Clr Calc Pharmacy 42.1 ml/min; Eosinophils # (auto) 0.76 K/uL (0.00-0.50); Hemoglobin 12.7 g/dl (12.0-16.0); Immature Granulocytes # (auto) 0.21 K/uL (0.01-0.20); Immature Granulocytes % (auto) 1.7 %; Lymphocytes # (auto) 2.05 K/uL (1.20-3.40); Lymphocytes % (auto) 16.2 %; Mean Corpuscular Hemoglobin 27.2 pg (25.0-34.0); Mean Corpuscular Volume 87.8 fL (80.0-100.0); Monocytes # (auto) 0.91 K/uL (0.11-0.59); Monocytes % (auto) 7.2 %; Neutrophils # (auto) 8.61 K/uL (1.40-6.50); Neutrophils % (auto) 68.2 %; Platelet Count 271 K/uL (130-400); Potassium 3.5 mmol/L (3.5-5.1); RDW Coefficient of Variation 14.3 % (11.5-14.5); RDW Standard Deviation 45.3 fL (36.4-46.3); Red Blood Count 4.67 M/uL (4.20-5.40); Total Protein 6.7 gm/dl (6.0-8.3); White Blood Count 12.63 K/ul (4.8-10.8)
[2024-08-07 13:38] LABS: Thyroid Stimulating Hormone 3.22 uIu/ml (0.300-4.500)
--- NOTE | 2024-08-07 13:52 | CT Scan Report ---
CT head/brain wo con CLINICAL HISTORY: 74 years-old Female with fall. Acute trauma status post fall TECHNIQUE: Multiple axial CT images of the head were obtained without contrast. A dose lowering tech nique was utilized adhering to the principles of ALARA. CT DOSE: 547.75 mGy.cm COMPARISON: 06/11/2021 FINDINGS: No acute intracranial hemorrhage, midline shift, intracranial mass, hydrocephalus, territorial ischem ia or abnormal extra-axial collection. Additional changes probable mild chronic microvascular ischemi c disease. Mildly motion degraded exam. Chronic left thalamic lacunar infarct. The calvarium is intact. Prior bilateral The paranasal sinuses, mastoid air cells, and middle ear cav ities are clear. IMPRESSION: No acute intracranial abnormality or calvarial fracture. ACT 112: Negative or not required by law. The above report was generated using voice recognition software. It may contain grammatical, syntax o r spelling errors. Electronically signed by: Osvaldo Malone M.D. 08/07/2024 1:50 PM
[2024-08-07 14:14] LABS: Adenovirus PCR Not Detected (NotDetected); Bordetella parapertussis PCR Not Detected (NotDetected); Bordetella pertussis PCR Not Detected (NotDetected); Chlamydia pneumoniae PCR Not Detected (NotDetected); Coronavirus 229E PCR Not Detected (NotDetected); Coronavirus CoV-2 (COVID19)PCR Not Detected (NotDetected); Coronavirus HKU1 PCR Not Detected (NotDetected); Coronavirus NL63 PCR Not Detected (NotDetected); Coronavirus OC43PCR Not Detected (NotDetected); Human Metapneumovirus PCR Not Detected (NotDetected); Influenza A PCR Not Detected (NotDetected); Influenza B PCR Not Detected (NotDetected); Mycoplasma pneumoniae PCR Not Detected (NotDetected); Parainfluenza Virus 1 PCR Not Detected (NotDetected); Parainfluenza Virus 2 PCR Not Detected (NotDetected); Parainfluenza Virus 3 PCR Not Detected (NotDetected); Parainfluenza Virus 4 PCR Not Detected (NotDetected); Respiratory Syncytial VirusPCR Not Detected (NotDetected); Rhinovirus/Enterovirus PCR Not Detected (NotDetected)
[2024-08-07] MEDS: LIDOCAINE 5% 1 PATCH TD STA (15:17)
[2024-08-07] MEDS: ACETAMINOPHEN 1,000 MG/100 ML VIAL IV STA (15:17)
[2024-08-07 15:37] LABS: Appearance Urine Clear (Clear); Bilirubin Urine Negative (Negative); Blood Urine Negative (Negative); Color Urine Yellow; Glucose Urine UA 2+ (Negative); Ketones Urine Trace (Negative); Leukocyte Esterase Urine Negative (Negative); Nitrite Urine Negative (Negative); Protein Urine Negative (Negative); Specific Gravity Urine 1.025 (1.000-1.030); Urobilinogen Urine Negative (Negative); pH Urine 5.5 (4.5-7.5)
--- NOTE | 2024-08-07 15:58 | History & Physical Report ---
Date of Service August 07, 2024 Assessment & Plan (1) Fall: Plan: Fall today, no acute fracture or intracranial hemorrhage. Patient does have generalized weakness and is not able to ambulate independently for any significant distance at home, even with walker. Patient does have electric wheelchair it appears. - Fall precautions while here - Ambulate with walker and with assistance only - if needed, we will get a physical therapy assessment to further determine home safety Present on Admission?: Yes (2) Medication overdose: Plan: Patient did apparently take an increased amount of her breakthrough Dilaudid as well as Ativan after her fall. Patient may be unsafe to make decisions regarding medication intake on her own. - For now we will hold the breakthrough Dilaudid and Ativan; these can be slowly resumed if patient continues to be awake, alert and still complains of pain - Patient's basal fentanyl patch 25 mcg can be resumed to provide basal pain control Present on Admission?: Yes (3) Unable to care for self: Plan: Given patient's risk for falls as noted above and given her questionable safety and being able to manage her own medications, hospice recommends that she will need 24-hour care/supervision. - Will coordinate with case management to get patient appropriately placed (4) Chronic hypoxic respiratory failure, on home oxygen therapy: Plan: Chronic hypoxic respiratory failure due to pulmonary fibrosis. Patient appears to be stable from this standpoint at this time on her home oxygen - Continuous pulse ox - Will continue O2 per her home regimen 24 hours a day (5 L) - Every 6 hours as needed Vivian (5) IPF (idiopathic pulmonary fibrosis): Plan: Management of the hypoxic respiratory failure as noted above. - Continue prednisone 10 mg daily per home dose - continue mycophenolate 250 mg twice daily per home dose (6) Peritoneal carcinomatosis: Plan: Per patient and family this is not being actively treated. Can follow-up with outpatient oncologist for further recommendations as needed. Plan CHF with preserved ejection fraction - monitor I&O and daily weights - continue Lasix 40 mg daily with additional doses as needed - continue Aldactone 25 mg daily - continue Entresto 1 tab twice daily - continue Toprol XL 50 mg daily CKD categorizes 3A; creatinine appears to be at baseline around 1.4 - dose medications renally and avoid nephrotoxic medications - monitor creatinine regularly Hypothyroidism - continue Synthroid 137 mcg daily Mood disorder/bipolar disorder - continue amitriptyline 25 mg daily - continue BuSpar 10 mg 3 times daily - continue Lamictal 150 mg daily - continue Topamax 100 mg twice daily GERD - continue Protonix 40 mg twice daily History of Present Illness Chief Complaint: Weakness, Falls, medication overdose Primary Care Provider: Ted Singh MD This is a 74-year-old female with medical history significant for pulmonary fibrosis/ILD (chronically on 5 L), pulmonary hypertension, heart failure with preserved ejection fraction, PSVT, irritable bowel syndrome, GERD, hypothyroidism, and bipolar disorder among other medical conditions who comes in with generalized weakness, falls, and likely narcotic and benzodiazepine overdose. Of note, per the family and per patient she does have what she describes as an abdominal cancer with metastases (possibly colon carcinoma) which has not been clearly defined, and for which she is currently not getting any treatment. Patient and family also note that she is on home hospice. Today, patient states that in the morning at around 4 to 4:30 AM, she tried to get up and tripped over her automatic chair. She did not remember having any head trauma. She did not pass out. She did have some left hip pain as well as some left arm/shoulder pain. Because of the pain she took her breakthrough pain medications which consisted of Dilaudid taken with Benadryl because of the itching; she also took a dose of her Ativan at that time as well. Then it appears she may have taken another dose a little bit later around 9 AM. Patient does have a fentanyl patch (25 mcg ) on as well. When her home health aide came in and tried to provide routine care, she found that the patient was very somnolent. it appears that they may have attempted to call EMS, however patient refused transport at the time. At around 1030 AM, the hospice nurse came in as well, and noted patient to be very somnolent. at this point EMS was called, and this time patient was brought to the ER. In the ER patient was noted to be somnolent, but with 0.2 mg of Narcan she came back to baseline mental status. She has been awake and alert since that time. Other than the left hip pain and left arm/shoulder pain noted above, patient has no other acute complaints. Denies any chest pain or shortness of breath. Denies any fevers, chills, nausea, vomiting, or diarrhea. She states that her legs do not appear to be swollen. As noted patient is on outpatient hospice. She has nursing and aide coverage about 40 hours a week. However it appears that the hospice agency believes at this point she will need full-time 24-hour care, given she is not safe to manage her medications or care for herself. Allergies Allergy/AdvReac Type Severity Reaction Status Date / Time latex Allergy Intermediate Rash, hand Verified 06/19/24 16:12 swelling Sulfa (Sulfonamide Allergy Intermediate Rash Verified 06/19/24 16:12 Antibiotics) Penicillins Allergy Unknown Unknown Verified 06/19/24 16:12 reaction (as teenager) morphine AdvReac Intermediate Anxiety Verified 06/19/24 16:12 Home Medications Medication Instructions Recorded Confirmed Type amitriptyline 25 mg tablet 25 mg PO HS #90 tabs 09/26/21 06/19/24 Rx buspirone 10 mg tablet 10 mg PO TID 03/02/23 06/19/24 History levothyroxine 137 mcg tablet 137 mcg PO QAM 03/02/23 06/19/24 History acetaminophen 325 mg tablet 650 mg PO QID PRN Pain 06/14/23 06/19/24 History (Tylenol) lamotrigine 150 mg tablet 150 mg PO HS 06/14/23 06/19/24 History cyanocobalamin (vitamin B-12) 1,000 mcg PO QAM 08/06/23 06/19/24 History 1,000 mcg capsule gabapentin 100 mg capsule 100 mg PO BID 08/06/23 06/19/24 History topiramate 100 mg tablet 100 mg PO BID 08/06/23 06/19/24 History furosemide 40 mg tablet 40 mg PO QAM #30 tabs 10/12/23 06/19/24 Rx metoprolol succinate 50 mg 50 mg PO BID #60 tabs 10/12/23 06/19/24 Rx tablet,extended release 24 hr furosemide 40 mg tablet (Lasix) 40 mg PO DAILY PRN weight gain, 11/09/23 06/19/24 Rx edema, SOB #30 tabs albuterol sulfate 90 mcg/actuation 2 inh inhalation Q4H PRN shortness 12/04/23 06/19/24 Rx aerosol inhaler of breath or wheezing #6.7 grams pantoprazole 40 mg tablet,delayed 40 mg PO BID #60 tabs 01/01/24 06/19/24 Rx release empagliflozin 10 mg tablet 10 mg PO DAILY #30 tabs 01/14/24 06/19/24 Rx (Jardiance) spironolactone 25 mg tablet 25 mg PO DAILY #90 tabs 01/24/24 06/19/24 Rx semaglutide 0.25 mg or 0.5 mg (2 mg subcut 03/04/24 06/19/24 History mg/3 mL) subcutaneous pen injector (Ozempic) prednisone 2.5 mg tablet 7.5 mg (3 x 2.5 mg) PO DAILY #90 04/21/24 06/19/24 Rx tabs Oxygen Home #6 L 05/15/24 06/19/24 Rx Portable Oxygen #1 ea 05/15/24 06/19/24 Rx mycophenolate mofetil 250 mg 250 mg PO BID #180 caps 07/12/24 Rx capsule sacubitril 49 mg-valsartan 51 mg 1 tab PO BID #180 tabs 07/15/24 Rx tablet (Entresto) Past Med/Surg History Problem List (Updated 08/07/24 @ 17:42 by Galileo Hawk MD) Medication overdose Unable to care for self Bipolar disorder Fall Peritoneal carcinoma Chronic hypoxic respiratory failure, on home oxygen therapy Peritoneal carcinomatosis Ambulatory dysfunction Pedal edema (Acute) CHF (congestive heart failure) (Acute) Elevated troponin (Acute) SOB (shortness of breath) (Acute) Major depressive disorder Cardiomyopathy Hypertension (Acute) Elevated troponin (Acute) SOB (shortness of breath) (Acute) Acute exacerbation of congestive heart failure Chronic kidney disease, stage 3a Peripheral neuropathy Heart failure with reduced ejection fraction Acute and chronic respiratory failure Localized swelling of both lower legs Pulmonary hypertension Post-nasal drip Acute dyspnea Weight gain Secondary pulmonary hypertension Dyspnea (Acute) COVID-19 (Acute) Status post revision of total replacement of right knee (~03/2022) Encounter for pre-operative examination Daytime sleepiness Chronic dyspnea Chronic hypoxemic respiratory failure (Acute) Pneumonitis Acute exacerbation of idiopathic pulmonary fibrosis (Acute) Hypoxia Failure of outpatient treatment (Acute) Pulmonary fibrosis (Acute) Weakness (Acute) SOB (shortness of breath) (Acute) Osteoarthritis of left knee Peritoneal lesion Abdominal ultrasound, abnormal IPF (idiopathic pulmonary fibrosis) Encounter for interrogation of cardiac recorder Closed patellar dislocation Expressive aphasia (Acute) Right arm weakness (Acute) CVA (cerebral vascular accident) (Acute 2020) Abnormal Chest X-Ray Dyspnea Tendinitis of both rotator cuffs Bilateral primary osteoarthritis of knee Abnormal EKG LBBB (left bundle branch block) Asthma Stable Post traumatic stress disorder PSVT (paroxysmal supraventricular tachycardia) pt denies/unaware Diabetes mellitus type II, controlled pt denies Pulmonary edema Chronic cough Diffuse myofascial pain syndrome Chronic low back pain Status post bronchoscopy With BAL 08/01/[address] [facility] Interstitial lung disease [facility] Pulmonary (PRN) On home oxygen therapy 2-3L at rest/5L with activity Hyperglycemia Hx mild hyperglycemia under surveillance by PCP. Most recent A1C 5.6% (06/12/21) -- pt reports no continued issues at this time (08/06/2023) Pulmonary hypertension Moderately elevated estimated RVSP (RVSP 40-50mmhg) per 01/19/22 echo IPF (idiopathic pulmonary fibrosis) (Acute) Bipolar disorder Left bundle branch block Follows with [facility] [place] Spinal stenosis Osteopenia IBS (irritable bowel syndrome) Intermittent flares - takes Amitriptyline and Protonix for GI pain control GERD (gastroesophageal reflux disease) Hypothyroidism (Chronic) Medical History Leukocytosis Elevated brain natriuretic peptide (BNP) level Pedal edema Fluid overload Exertional dyspnea Elevated troponin Secondary pulmonary hypertension Congestive heart failure Arrhythmia ? hx of a. fib- on Eliquis per cardiology -- hx of having a Loop Recorder in 2021 with no evidence of A.fib on the recorder at the time. no current sara tment Anxiety and depression History of blood transfusion Post-op 2017 Cerebrovascular accident (CVA) of left thalamus 06/11/2021 (post-op Right TKA) > POD#1 ischemic left thalamic stroke CVA with right sided weakness History of COVID-19 12/2020 > fully recovered Shortness of breath Surgical History Status post right knee replacement (~05/2021) History of cataract surgery S/P revision of total knee 03/[address] [facility] (Right TKA) History of loop recorder has since been removed in 09/2022 at [facility] History of total knee replacement Right TKA (06/10/21): SAB at L4-5 (x1 attempt) + PNB at [facility] History of surgery Right Quadriceps Repair (06/14/21): LMA#[address] [facility]. No issues noted per post-op anesthesia progress note. History of anesthesia reaction "Slow to wake" x1 episode after 3 hour surgery in 2017- she states she became violent and upset, hallucinated while waking up. Began to calm down once she heard her daughter's voice. History of hernia surgery History of colonoscopy History of arthroscopy R/L knee History of cholecystectomy Status post gastric banding surgery + removal History of hysterectomy Family History Family/Other No problems noted. Mother Colon cancer Dementia Father , at age 79 from mesothelioma. Mesothelioma Sister No problems noted. Sister No problems noted. Son No problems noted. Daughter No problems noted. Other Family history of diabetes mellitus in father Denies family history of Ovarian cancer Prostate cancer Myocardial infarction Breast cancer Social History Smoking Status: Former smoker Tobacco Type: Cigarettes Age Started Using Tobacco: 34; Age Quit Using Tobacco: 49; packs per day: 1; Second Hand Exposure: No; Do You Dip or Chew Tobacco: No; Hx Alcohol Use: Yes Alcohol type: wine Hx Substance Use: No Preferred Language: Yoruba Communication Ability: Effective Visual Impairment: No Limitations Tactical Air Control Party Required: No Beliefs That Will Affect Care: None marital status: Single Current Living Situation: Alone Current Living Situation Comment: "[facility], alone" current occupational status: retired Feels Safe at Home: Yes Childhood Exposure to Second-Hand Smoke: Yes Dental Care, Regularly: Yes Physical Activity Frequency: Daily Seatbelt Use: always Sunscreen Use: No Assistive Devices: Oxygen - Continuous, Walker and Wheelchair Review of Systems Review of Systems: All systems reviewed & are unremarkable except as noted in HPI & below Physical Exam Constitutional: WD/WN, vitals as above Eyes: PERRL and EOM intact bilaterally ENMT: Nose: no external nose abnormality and no facial tenderness Mouth: + poor dentition; no oral mucosal abnormality Respiratory: normal respiratory effort and + abnormal respiratory pattern; no respiratory distress, no cough and no audible wheezes Auscultation: + crackles (Minimal dry sounding crackles) and + rhonchi; no wheezes Cardiovascular: RRR, no murmur, no edema Heart Sounds: normal S1 and normal S2 Extremities: + pedal edema and + edema (1+ b/l LE edema) Gastrointestinal (Abdomen): normal bowel sounds, soft, nontender, no hepatosplenomegaly Musculoskeletal: no cyanosis or clubbing, extremities motor strength 5/5 ( Patient able to move LE against resistance, but unable to ambulate on own) Neurologic: PERRL, EOMI, accommodation nl, no face palsy, no dysarthria Gait: + gait assisted Psychiatric: Orientation: alert and oriented x 3 Thought Process: linear/logical thought process Judgment: + fair judgement Results & Data Results & Data Vital Signs (Past 12 Hours) Vital Signs Temp Pulse Pulse Resp BP BP Pulse Ox 08/07/24 13:25 71 20 98 08/07/24 13:10 68 08/07/24 12:42 36.8 C 66 18 129/72 96 08/07/24 12:32 36.8 C 66 18 129/72 96 08/07/24 12:32 95 O2 Del Method O2 Flow Rate 08/07/24 13:25 Nasal Cannula 4 08/07/24 13:10 08/07/24 12:42 Nasal Cannula 5 08/07/24 12:32 Nasal Cannula 5 08/07/24 12:32 Nasal Cannula 4 Laboratory Results 08/07/24 12:48 WBC 12.63 H RBC 4.67 Hgb 12.7 Hct 41.0 MCV 87.8 MCH 27.2 MCHC 31.0 L RDW Std Deviation 45.3 RDW Coeff of Ese 14.3 Plt Count 271 MPV 11.0 Immature Gran % (Auto) 1.7 Neut % (Auto) 68.2 Lymph % (Auto) 16.2 Elbert % (Auto) 7.2 Eos % (Auto) 6.0 Baso % (Auto) 0.7 Neut # (Auto) 8.61 H Lymph # (Auto) 2.05 Elbert # (Auto) 0.91 H Eos # (Auto) 0.76 H Baso # (Auto) 0.09 Immature Gran # (Auto) 0.21 H Sodium 138 Potassium 3.5 Chloride 104 Carbon Dioxide 28 Anion Gap 6 BUN 25 H Creatinine 1.42 H Est Cr Clr Drug Dosing 42.1 eGFR 38.57 BUN/Creatinine Ratio 17.6 Glucose 97 Calcium 9.1 Total Bilirubin 0.5 AST 41 H ALT 37 Alkaline Phosphatase 122 H Total Protein 6.7 Albumin 3.7 Globulin 3.0 Albumin/Globulin Ratio 1.2 TSH 3.220 Adenovirus (PCR) Not Detected B. pertussis DNA (PCR) Not Detected B.parapertussis DNA PCR Not Detected C. pneumoniae DNA (PCR) Not Detected Coronavirus OC43 (PCR) Not Detected Coronavirus HKU1 (PCR) Not Detected Coronavirus 229E (PCR) Not Detected SARS-CoV-2 (PCR) Not Detected Coronavirus NL63 (PCR) Not Detected Human Metapneumovir PCR Not Detected Influenza Type A (PCR) Not Detected Influenza Type B (PCR) Not Detected M. pneumoniae (PCR) Not Detected Parainfluenza 1 (PCR) Not Detected Parainfluenza 2 (PCR) Not Detected Parainfluenza 3 (PCR) Not Detected Parainfluenza 4 (PCR) Not Detected RSV (PCR) Not Detected Entero/Rhino (PCR) Not Detected Diagnostic Findings CT head non con IMPRESSION: No acute intracranial abnormality or calvarial fracture. CXR IMPRESSION: 1. No acute process. 2. Cardiomegaly with chronic interstitial lung disease. ECG Additional Comments: normal sinus rhythm at 64 first-degree AV block with WI interval [address] elevations, depressions, or concerning T wave inversions somewhat poor R wave progression possible old anterior/anterolateral infarction Code Status & VTE Plan Code Status DNR/DNI. Patient is on hospice. Patient's wishes were discussed with her and family at bedside. VTE Prophylaxis Plan VTE Prophylaxis will be ordered: Yes PG Care Time/CCT Total # of Minutes Spent Total Time Spent with Patient: Total time spent is greater than 50% in coordination of care (as documented) at patient's floor/unit and/or counseling patient: 60 minutes Coding Level of Care Code 19751 INT INP/OBS CARE 2/55MIN Diagnoses Fall W19.XXXA Medication overdose T50.901A Unable to care for self Z78.9 Chronic hypoxic respiratory failure, on home oxygen therapy J96.11; Z99.81 IPF (idiopathic pulmonary fibrosis) J84.112 Peritoneal carcinomatosis C78.6
--- NOTE | 2024-08-07 16:25 | XRay Report ---
XR shoulder LT min 2V routine CLINICAL HISTORY: pain post fall TECHNIQUE: 3 views of the left shoulder were obtained. Comparison: None available at the time of this dictation. FINDINGS: There is no evidence of an acute fracture. Degenerative changes are seen in the glenohumeral joint. T he overlying soft tissues are unremarkable. The visualized portions of the lungs are clear. IMPRESSION: Degenerative changes without evidence of acute abnormality. ACT 112: Negative or not required by law. Electronically signed by: Nilesh Joshi M.D. 08/07/2024 4:23 PM
[2024-08-07] MEDS ORDERED: GABAPENTIN 100 MG CAP PO SCH (22:00)
[2024-08-07] MEDS: HEPARIN SOD 5,000 UNIT/0.5 ML VIAL SQ SCH (22:00)
[2024-08-07] MEDS: VALSARTAN/SACUBITRIL 51/49 MG TAB PO SCH (22:22)
[2024-08-07] MEDS: TOPIRAMATE 100 MG TAB PO SCH (22:23)
[2024-08-07] MEDS: PANTOprazole 40 MG TAB PO SCH (22:23)
[2024-08-07] MEDS: MYCOPHENOLATE MOFETIL 250 MG CAP PO SCH (22:23)
[2024-08-07] MEDS: lamoTRIgine 100 MG TAB PO SCH (22:23)
[2024-08-07] MEDS: GABAPENTIN 100 MG CAP PO SCH (22:24)
[2024-08-07] MEDS: AMITRIPTYLINE HCL 25 MG TAB PO SCH (22:25)
[2024-08-07] MEDS: busPIRone 5 MG TAB PO SCH (22:25)
--- NOTE | 2024-08-07 23:25 | Electrocardiogram Report ---
Test Reason : Blood Pressure : */* mmHG Vent. Rate : 64 BPM Atrial Rate : 64 BPM P-R Int : 214 ms QRS Dur : 120 ms QT Int : 422 ms P-R-T Axes : 78 -39 104 degrees QTcB Int : 435 ms Sinus rhythm with 1st degree A-V block Left axis deviation Left bundle branch block Abnormal ECG When compared with ECG of 06-Oct-2023 06:40, Vent. rate has decreased by 45 bpm Confirmed by Jamie Morrow ([id number]) on 08/07/2024 11:24:51 PM Referred By: REFERRED SELF Confirmed By: Jamie Morrow
[2024-08-08] MEDS: CHECK fentaNYL PATCH PLACEMENT SCH (00:22)
[2024-08-08] MEDS: LEVOTHYROXINE SODIUM 137 MCG TABLET PO SCH (05:29)
[2024-08-08 06:26] LABS: Basophils # (auto) 0.08 K/uL (0.00-0.20); Basophils % (auto) 0.9 %; Eosinophils # (auto) 0.67 K/uL (0.00-0.50); Eosinophils % (auto) 7.9 %; Hematocrit (blood only) 39.3 % (37.0-47.0); Hemoglobin 12.1 g/dl (12.0-16.0); Immature Granulocytes # (auto) 0.09 K/uL (0.01-0.20); Immature Granulocytes % (auto) 1.1 %; Lymphocytes # (auto) 1.71 K/uL (1.20-3.40); Lymphocytes % (auto) 20.2 %; Mean Corpuscular Hemoglobin 27.1 pg (25.0-34.0); Mean Corpuscular Hgb Conc 30.8 g/dL (32.0-36.0); Mean Corpuscular Volume 88.1 fL (80.0-100.0); Mean Platelet Volume 10.6 fL (9.4-12.4); Monocytes # (auto) 0.74 K/uL (0.11-0.59); Monocytes % (auto) 8.7 %; Neutrophils # (auto) 5.18 K/uL (1.40-6.50); Neutrophils % (auto) 61.2 %; Platelet Count 237 K/uL (130-400); RDW Coefficient of Variation 14.2 % (11.5-14.5); RDW Standard Deviation 44.7 fL (36.4-46.3); Red Blood Count 4.46 M/uL (4.20-5.40); White Blood Count 8.47 K/ul (4.8-10.8)
[2024-08-08 06:35] LABS: BUN Creatinine Ratio 15.7 (10-20); Calcium 8.6 mg/dl (8.6-10.3); Creatinine Clr Calc Pharmacy 46.4 ml/min; Potassium 3.8 mmol/L (3.5-5.1)
--- NOTE | 2024-08-08 08:09 | Hospitalist Progress Note ---
Date of Service August 08, 2024 Assessment & Plan (1) Unable to care for self: (2) Fall: (3) Medication overdose: (4) Chronic hypoxic respiratory failure, on home oxygen therapy: (5) IPF (idiopathic pulmonary fibrosis): (6) Peritoneal carcinomatosis: Plan 74-year-old female with medical history significant for pulmonary fibrosis/ILD (chronically on 5 L), pulmonary hypertension, heart failure with preserved ejection fraction, PSVT, irritable bowel syndrome, GERD, hypothyroidism, and bipolar disorder among other medical conditions and who is on home hospice, came in after a fall and due to concern for inability to care for self: Unable to care for self: High risk for recurrent falls and no longer safe for patient to live independently, even with existing caregiver hours - [facility] home hospice recommending 24-hour care, for which patient would require placement. - CM following re: placement needs Fall: Admitted after fall, no acute fracture or intracranial hemorrhage. Patient with generalized weakness at baseline and inability to ambulate independently in a safe manner. - Resume home regimen for pain - Fall precautions while here - Ambulate with walker and with assistance only - PT/OT evaluation as needed for placement consideration Chronic Respiratory Failure, on home O2//Pulmonary Fibrosis: Chronic hypoxic respiratory failure due to pulmonary fibrosis. Patient appears to be stable from this standpoint at this time on her home oxygen - Continuous pulse ox - Will continue O2 per her home regimen 24 hours a day (5 L) - Every 6 hours as needed DuoNebs - Continue prednisone 10 mg daily, home dose - continue mycophenolate 250 mg twice daily, home dose CHF with preserved ejection fraction - monitor I&O and daily weights - continue Lasix 40 mg daily, consider additional diuresis as needed if appearing fluid overloaded - continue Aldactone 25 mg daily - continue Entresto 1 tab twice daily - continue Toprol XL 50 mg daily CKD Stage 3A; Creatinine at baseline around 1.4 - Renal dosing as appropriate Hypothyroidism - continue Synthroid 137 mcg daily Mood disorder/bipolar disorder - continue amitriptyline 25 mg daily - continue BuSpar 10 mg 3 times daily - continue Lamictal 150 mg daily - continue Topamax 100 mg twice daily GERD - continue Protonix 40 mg twice daily VTE ppx: Heparin FEN/GI: Admission and Anticipated Discharge Date Admission Date: August 07, 2024 Supervising Physician Co-Signing Physician Notes I personally examined the patient and verified all mcclure points of history and exam, discussed case, and agree with decision making with Dr Domingo feeling ok for placement family notes no new needs vitlas noted nad heent nc at mmm breathing unlabored no accessory muscles good effort skin no rashes no pallor or icterus comfort care/hospice - end stage ILD / mets cancer -continue current care, work on placement Subjective Patient reports left shoulder pain secondary to fall, otherwise denies significant discomfort at this time. Denies CP/SOB. Patient has been on home hospice for roughly the past month, followed by [facility] home hospice. Lives alone,also has paid caregivers ~48 hours per week. Since fall, [facility] home hospice expressed concern about patient requiring 24 hour care. Patient has looked into extending home care hours, not feasible. States that she is amenable to placement, will discuss options with case management. Review of Systems Review of Systems: as per HPI Physical Exam Physical Exam: General: AOx3, no acute distress Resp: No conversational dyspnea or accessory muscle use Psych: Mood-affect congruence Results & Data Results & Data Vital Signs (Past 12 Hours) Vital Signs Temp Pulse Pulse Resp BP Pulse Ox O2 Del Method 08/08/24 08:06 86 20 123/76 96 Nasal Cannula 08/07/24 21:30 71 18 146/94 H 98 Nasal Cannula 08/07/24 21:10 Nasal Cannula 08/07/24 20:49 36.6 C 66 18 127/86 98 Nasal Cannula O2 Flow Rate 08/08/24 08:06 4 08/07/24 21:30 08/07/24 21:10 4 08/07/24 20:49 4 Resident Activity Tracking Resident Involvement: Resident Care Provided Care Provided: Adult Hospital Medicine
[2024-08-08] MEDS: METOPROLOL SUCC 50MG EXT REL TAB PO SCH (08:10)
[2024-08-08] MEDS: FUROSEMIDE 40 MG TAB PO SCH (08:11)
[2024-08-08] MEDS: predniSONE 10 MG TABLET PO SCH (08:11)
[2024-08-08] MEDS: SPIRONOLACTONE 25 MG TAB PO SCH (08:11)
[2024-08-08] MEDS: fentaNYL 25 MCG/HR TDSY TD SCH (08:14)
[2024-08-08] MEDS: SODIUM CHLORIDE 0.65% NA SOLN 45 ML (OCEAN) PRN (14:18)
[2024-08-08] MEDS: COUGH DROP (SUGAR FREE) LOZ 24 LOZ/1 BOX BUCCAL ONE (14:18)
[2024-08-08] MEDS: LIDOCAINE 5% 1 PATCH TD STA (14:19)
--- NOTE | 2024-08-08 18:03 | Billing Data ---
Date of Service August 08, 2024 Coding Level of Care Code 63875 SUB INP/OBS CARE
[2024-08-08] MEDS: ALBUT/IPRATROP 3MG/0.5MG NEB 3 ML VIAL NEB PRN (18:16)
--- NOTE | 2024-08-09 07:54 | Hospitalist Progress Note ---
Date of Service August 09, 2024 Assessment & Plan (1) Unable to care for self: (2) Fall: (3) Medication overdose: (4) Chronic hypoxic respiratory failure, on home oxygen therapy: (5) IPF (idiopathic pulmonary fibrosis): (6) Peritoneal carcinomatosis: Plan 74-year-old female with medical history significant for pulmonary fibrosis/ILD (chronically on 5 L), pulmonary hypertension, heart failure with preserved ejection fraction, PSVT, irritable bowel syndrome, GERD, hypothyroidism, and bipolar disorder among other medical conditions and who is on home hospice, came in after a fall and due to concern for inability to care for self: Unable to care for self: High risk for recurrent falls and no longer safe for patient to live independently, even with existing caregiver hours - [facility] home hospice recommending 24-hour care, for which patient would require placement. - CM following re: placement needs Fall: Admitted after fall, no acute fracture or intracranial hemorrhage. Patient with generalized weakness at baseline and inability to ambulate independently in a safe manner. - Resume home regimen for pain - Fall precautions while here - Ambulate with walker and with assistance only - PT/OT evaluation as needed for placement consideration Chronic Respiratory Failure, on home O2//Pulmonary Fibrosis: Chronic hypoxic respiratory failure due to pulmonary fibrosis. Patient appears to be stable from this standpoint at this time on her home oxygen - Continuous pulse ox - Will continue O2 per her home regimen 24 hours a day (5 L) - Every 6 hours as needed DuoNebs - Continue prednisone 10 mg daily, home dose - continue mycophenolate 250 mg twice daily, home dose CHF with preserved ejection fraction - monitor I&O and daily weights - continue Lasix 40 mg daily, consider additional diuresis as needed if appearing fluid overloaded - continue Aldactone 25 mg daily - continue Entresto 1 tab twice daily - continue Toprol XL 50 mg daily CKD Stage 3A; Creatinine at baseline around 1.4 - Renal dosing as appropriate Hypothyroidism - continue Synthroid 137 mcg daily Mood disorder/bipolar disorder - continue amitriptyline 25 mg daily - continue BuSpar 10 mg 3 times daily - continue Lamictal 150 mg daily - continue Topamax 100 mg twice daily GERD - continue Protonix 40 mg twice daily VTE ppx: Heparin FEN/GI: Admission and Anticipated Discharge Date Admission Date: August 07, 2024 Supervising Physician Co-Signing Physician Notes I personally examined the patient and verified all mcclure points of history and exam, discussed case, and agree with decision making with Dr Carroll Edwards sleeping comfortably no new needs identified kdlas noted resting appears comfortable breathing unlabored no accessory muscles good effort skin no pallor or icterus comfort care/hospice - end stage ILD / mets cancer -continue current care, working on placement, no changes needed today Subjective No concerns today. Refers feeling ok. Pending placement Review of Systems Review of Systems: as per HPI Physical Exam Physical Exam: General: AOx3, no acute distress Resp: No conversational dyspnea or accessory muscle use Psych: Mood-affect congruence Results & Data Results & Data Vital Signs (Past 12 Hours) Vital Signs Temp Pulse Resp BP Pulse Ox O2 Del Method O2 Flow Rate 08/09/24 07:21 36.7 C 77 16 116/76 93 Nasal Cannula 4 08/08/24 23:46 Nasal Cannula 4 08/08/24 23:30 36.7 C 72 16 103/67 97 Nasal Cannula 4 Resident Activity Tracking Resident Involvement: Resident Care Provided Care Provided: Adult Hospital Medicine (2) Fall Encounter type: initial encounter Qualified Code(s): W19.XXXA - Unspecified fall, initial encounter (3) Medication overdose Encounter type: initial encounter Injury intent: accidental or unintentional Qualified Code(s): T50.901A - Poisoning by unspecified drugs, medicaments and biological substances, accidental (unintentional), initial encounter
[2024-08-09] MEDS: ACETAMINOPHEN 325 MG TAB PO PRN (08:15)
--- NOTE | 2024-08-09 16:07 | Billing Data ---
Date of Service August 09, 2024 Coding Level of Care Code 60979 SUB INP/OBS CARE
[2024-08-09] MEDS: HYDROmorphone HCL 2 MG TAB PO PRN (16:15)
[2024-08-09] MEDS: DIPHENOXYLATE/ATROPINE 2.5/0.025MG TAB PO PRN (16:49)
[2024-08-09] MEDS: LORazepam 0.5 MG TAB PO PRN (19:25)
--- NOTE | 2024-08-10 09:22 | Hospitalist Progress Note ---
Date of Service August 10, 2024 Assessment & Plan (1) Unable to care for self: (2) Fall: (3) Medication overdose: (4) Chronic hypoxic respiratory failure, on home oxygen therapy: (5) IPF (idiopathic pulmonary fibrosis): (6) Peritoneal carcinomatosis: Plan 74-year-old female with medical history significant for pulmonary fibrosis/ILD (chronically on 5 L), pulmonary hypertension, heart failure with preserved ejection fraction, PSVT, irritable bowel syndrome, GERD, hypothyroidism, and bipolar disorder among other medical conditions and who is on home hospice, came in after a fall and due to concern for inability to care for self: Unable to care for self: High risk for recurrent falls and no longer safe for patient to live independently, even with existing caregiver hours - [facility] home hospice recommending 24-hour care, for which patient would require placement. - CM following re: placement needs Fall: Admitted after fall, no acute fracture or intracranial hemorrhage. Patient with generalized weakness at baseline and inability to ambulate independently in a safe manner. - Resume home regimen for pain - Fall precautions while here - Ambulate with walker and with assistance only - PT/OT evaluation as needed for placement consideration Chronic Respiratory Failure, on home O2//Pulmonary Fibrosis: Chronic hypoxic respiratory failure due to pulmonary fibrosis. Patient appears to be stable from this standpoint at this time on her home oxygen - Continuous pulse ox - Will continue O2 per her home regimen 24 hours a day (5 L) - Every 6 hours as needed DuoNebs - Continue prednisone 10 mg daily, home dose - continue mycophenolate 250 mg twice daily, home dose CHF with preserved ejection fraction - monitor I&O and daily weights - continue Lasix 40 mg daily, consider additional diuresis as needed if appearing fluid overloaded - continue Aldactone 25 mg daily - continue Entresto 1 tab twice daily - continue Toprol XL 50 mg daily CKD Stage 3A; Creatinine at baseline around 1.4 - Renal dosing as appropriate Hypothyroidism - continue Synthroid 137 mcg daily Mood disorder/bipolar disorder - continue amitriptyline 25 mg daily - continue BuSpar 10 mg 3 times daily - continue Lamictal 150 mg daily - continue Topamax 100 mg twice daily GERD - continue Protonix 40 mg twice daily VTE ppx: Heparin FEN/GI: Admission and Anticipated Discharge Date Admission Date: August 07, 2024 Supervising Physician Co-Signing Physician Notes I personally examined the patient and verified all mcclure points of history and exam, discussed case, and agree with decision making with Dr Carroll Edwards sitting in bed, no complaints denies any current needs vitlas noted pleasant nad breathing unlabored no accessory muscles good effort skin no pallor or icterus comfort care/hospice - end stage ILD / mets cancer -continue current care, working on placement (none anticipated today), no change s needed today Subjective No concerns today. Refers feeling ok. Pending placement Review of Systems Review of Systems: as per HPI Physical Exam Physical Exam: General: AOx3, no acute distress Resp: No conversational dyspnea or accessory muscle use Psych: Mood-affect congruence Results & Data Results & Data Vital Signs (Past 12 Hours) Vital Signs Temp Pulse Resp BP Pulse Ox O2 Del Method O2 Flow Rate 08/10/24 07:11 36.6 C 70 14 117/72 96 Nasal Cannula 4 08/09/24 21:20 Nasal Cannula 4 Resident Activity Tracking Resident Involvement: Resident Care Provided Care Provided: Adult Hospital Medicine (2) Fall Encounter type: initial encounter Qualified Code(s): W19.XXXA - Unspecified fall, initial encounter (3) Medication overdose Encounter type: initial encounter Injury intent: accidental or unintentional Qualified Code(s): T50.901A - Poisoning by unspecified drugs, medicaments and biological substances, accidental (unintentional), initial encounter
--- NOTE | 2024-08-10 09:53 | Billing Data ---
Date of Service August 10, 2024 Coding Level of Care Code 69969 SUB INP/OBS CARE
[2024-08-10] MEDS ORDERED: Nursing to Pharmacy Communication SCH (19:30)
[2024-08-11] MEDS: LIDOCAINE 5% 1 PATCH TD STA (01:37)
--- NOTE | 2024-08-11 07:22 | Hospitalist Progress Note ---
Date of Service August 11, 2024 Assessment & Plan (1) Unable to care for self: (2) Fall: (3) Medication overdose: (4) Chronic hypoxic respiratory failure, on home oxygen therapy: (5) IPF (idiopathic pulmonary fibrosis): (6) Peritoneal carcinomatosis: Plan 74-year-old female with medical history significant for pulmonary fibrosis/ILD (chronically on 5 L), pulmonary hypertension, heart failure with preserved ejection fraction, PSVT, irritable bowel syndrome, GERD, hypothyroidism, and bipolar disorder among other medical conditions and who is on home hospice, came in after a fall and due to concern for inability to care for self: Unable to care for self: High risk for recurrent falls and no longer safe for patient to live independently, even with existing caregiver hours - [facility] home hospice recommending 24-hour care, for which patient would require placement. - CM following re: placement needs Fall: Admitted after fall, no acute fracture or intracranial hemorrhage. Patient with generalized weakness at baseline and inability to ambulate independently in a safe manner. - Resume home regimen for pain - Fall precautions while here - Ambulate with walker and with assistance only - PT/OT evaluation as needed for placement consideration Chronic Respiratory Failure, on home O2//Pulmonary Fibrosis: Chronic hypoxic respiratory failure due to pulmonary fibrosis. Patient appears to be stable from this standpoint at this time on her home oxygen - Continuous pulse ox - Will continue O2 per her home regimen 24 hours a day (5 L) - Every 6 hours as needed DuoNebs - Continue prednisone 10 mg daily, home dose - continue mycophenolate 250 mg twice daily, home dose CHF with preserved ejection fraction - monitor I&O and daily weights - continue Lasix 40 mg daily, consider additional diuresis as needed if appearing fluid overloaded - continue Aldactone 25 mg daily - continue Entresto 1 tab twice daily - continue Toprol XL 50 mg daily CKD Stage 3A; Creatinine at baseline around 1.4 - Renal dosing as appropriate Hypothyroidism - continue Synthroid 137 mcg daily Mood disorder/bipolar disorder - continue amitriptyline 25 mg daily - continue BuSpar 10 mg 3 times daily - continue Lamictal 150 mg daily - continue Topamax 100 mg twice daily GERD - continue Protonix 40 mg twice daily VTE ppx: Heparin FEN/GI: Admission and Anticipated Discharge Date Admission Date: August 07, 2024 Supervising Physician Co-Signing Physician Notes I personally examined the patient and verified mcclure points of history and exam, discussed case, and agree with decision making and plan documented by Dr. Nielsen. Patient resting comfortably in bed, utilizing nebulizer, denies worsening pain. Anticipate discharge to SNF, possibly [facility], with hospice when bed available. Subjective Patient seen and evaluated at bedside this morning. No acute events overnight. Eager to find placement. CM working on this. Is followed by [facility] hospice Review of Systems Review of Systems: reviewed, per HPI Physical Exam Physical Exam: Constitutional: ill appearing, NAD HEENT: NCAT, no conjunctival injection CV: clinically well perfused Resp: no increased work of breathing GI: nondistended MSK: no gross deformities appreciated Skin: warm, dry, no rash appreciated Neuro: alert, oriented, no focal neurologic deficit appreciated Results & Data Results & Data Vital Signs (Past 12 Hours) Vital Signs Temp Pulse Resp BP Pulse Ox O2 Del Method O2 Flow Rate 08/10/24 21:36 36.6 C 69 16 94/59 L 98 Nasal Cannula 4 08/10/24 21:15 Nasal Cannula 4 Resident Activity Tracking Resident Involvement: Resident Care Provided Care Provided: Adult Hospital Medicine (2) Fall Encounter type: initial encounter Qualified Code(s): W19.XXXA - Unspecified fall, initial encounter (3) Medication overdose Encounter type: initial encounter Injury intent: accidental or unintentional Qualified Code(s): T50.901A - Poisoning by unspecified drugs, medicaments and biological substances, accidental (unintentional), initial encounter
[2024-08-12] MEDS: diphenhydrAMINE Capsule 25 MG CAP PO PRN (02:07)
--- NOTE | 2024-08-12 08:20 | Hospitalist Progress Note ---
Date of Service August 12, 2024 Assessment & Plan (1) Unable to care for self: (2) Fall: (3) Medication overdose: (4) Chronic hypoxic respiratory failure, on home oxygen therapy: (5) IPF (idiopathic pulmonary fibrosis): (6) Peritoneal carcinomatosis: Plan 74-year-old female with medical history significant for pulmonary fibrosis/ILD (chronically on 5 L), pulmonary hypertension, heart failure with preserved ejection fraction, PSVT, irritable bowel syndrome, GERD, hypothyroidism, and bipolar disorder among other medical conditions and who is on home hospice, came in after a fall and due to concern for inability to care for self: Unable to care for self: High risk for recurrent falls and no longer safe for patient to live independently, even with existing caregiver hours - [facility] home hospice recommending 24-hour care, for which patient would require placement. - CM following re: placement needs Fall: Admitted after fall, no acute fracture or intracranial hemorrhage. Patient with generalized weakness at baseline and inability to ambulate independently in a safe manner. - Resume home regimen for pain - Fall precautions while here - Ambulate with walker and with assistance only - PT/OT evaluation as needed for placement consideration Chronic Respiratory Failure, on home O2//Pulmonary Fibrosis: Chronic hypoxic respiratory failure due to pulmonary fibrosis. Patient appears to be stable from this standpoint at this time on her home oxygen - Continuous pulse ox - Will continue O2 per her home regimen 24 hours a day (5 L) - Every 6 hours as needed DuoNebs - Continue prednisone 10 mg daily, home dose - continue mycophenolate 250 mg twice daily, home dose CHF with preserved ejection fraction - monitor I&O and daily weights - continue Lasix 40 mg daily, consider additional diuresis as needed if appearing fluid overloaded - continue Aldactone 25 mg daily - continue Entresto 1 tab twice daily - continue Toprol XL 50 mg daily CKD Stage 3A; Creatinine at baseline around 1.4 - Renal dosing as appropriate Hypothyroidism - continue Synthroid 137 mcg daily Mood disorder/bipolar disorder - continue amitriptyline 25 mg daily - continue BuSpar 10 mg 3 times daily - continue Lamictal 150 mg daily - continue Topamax 100 mg twice daily GERD - continue Protonix 40 mg twice daily VTE ppx: Heparin FEN/GI: Admission and Anticipated Discharge Date Admission Date: August 07, 2024 Supervising Physician Co-Signing Physician Notes I personally examined the patient and verified mcclure points of history and exam, discussed case, and agree with decision making and plan documented by Dr. Nielsen. Patient resting comfortably in bed, she states her pain is controlled. Anticipate discharge to SNF, possibly [facility], with hospice when bed available. Subjective Patient seen and evaluated at bedside this morning. No acute events overnight. Eager to find placement. CM working on this. Is followed by [facility] hospice Review of Systems Review of Systems: reviewed, per HPI Physical Exam Physical Exam: Constitutional: ill appearing, NAD HEENT: NCAT, no conjunctival injection CV: clinically well perfused Resp: no increased work of breathing GI: nondistended MSK: no gross deformities appreciated Skin: warm, dry, no rash appreciated Neuro: alert, oriented, no focal neurologic deficit appreciated Results & Data Results & Data Vital Signs (Past 12 Hours) Vital Signs Temp Pulse Resp BP Pulse Ox O2 Del Method O2 Flow Rate 08/12/24 07:57 Nasal Cannula 4 08/12/24 07:29 36.6 C 91 H 16 103/63 100 Nasal Cannula 4 08/11/24 21:40 Nasal Cannula 4 Resident Activity Tracking Resident Involvement: Resident Care Provided Care Provided: Adult Hospital Medicine (2) Fall Encounter type: initial encounter Qualified Code(s): W19.XXXA - Unspecified fall, initial encounter (3) Medication overdose Encounter type: initial encounter Injury intent: accidental or unintentional Qualified Code(s): T50.901A - Poisoning by unspecified drugs, medicaments and biological substances, accidental (unintentional), initial encounter
[2024-08-13] MEDS: guaiFENesin 600 MG TABCR PO PRN (13:34)
--- NOTE | 2024-08-13 13:52 | Hospitalist Progress Note ---
Date of Service August 13, 2024 Assessment & Plan (1) Unable to care for self: (2) Fall: (3) Medication overdose: (4) Chronic hypoxic respiratory failure, on home oxygen therapy: (5) IPF (idiopathic pulmonary fibrosis): (6) Peritoneal carcinomatosis: Plan 74-year-old female with medical history significant for pulmonary fibrosis/ILD (chronically on 5 L), pulmonary hypertension, heart failure with preserved ejection fraction, PSVT, irritable bowel syndrome, GERD, hypothyroidism, and bipolar disorder among other medical conditions and who is on home hospice, came in after a fall and due to concern for inability to care for self: Unable to care for self: High risk for recurrent falls and no longer safe for patient to live independently, even with existing caregiver hours - [facility] home hospice recommending 24-hour care, for which patient would require placement. - CM following re: placement needs Fall: Admitted after fall, no acute fracture or intracranial hemorrhage. Patient with generalized weakness at baseline and inability to ambulate independently in a safe manner. - Resume home regimen for pain - Fall precautions while here - Ambulate with walker and with assistance only - PT/OT evaluation as needed for placement consideration Chronic Respiratory Failure, on home O2//Pulmonary Fibrosis: Chronic hypoxic respiratory failure due to pulmonary fibrosis. Patient appears to be stable from this standpoint at this time on her home oxygen - Continuous pulse ox - Will continue O2 per her home regimen 24 hours a day (5 L) - Every 6 hours as needed DuoNebs - Continue prednisone 10 mg daily, home dose - continue mycophenolate 250 mg twice daily, home dose CHF with preserved ejection fraction - monitor I&O and daily weights - continue Lasix 40 mg daily, consider additional diuresis as needed if appearing fluid overloaded - continue Aldactone 25 mg daily - continue Entresto 1 tab twice daily - continue Toprol XL 50 mg daily CKD Stage 3A; Creatinine at baseline around 1.4 - Renal dosing as appropriate Hypothyroidism - continue Synthroid 137 mcg daily Mood disorder/bipolar disorder - continue amitriptyline 25 mg daily - continue BuSpar 10 mg 3 times daily - continue Lamictal 150 mg daily - continue Topamax 100 mg twice daily GERD - continue Protonix 40 mg twice daily VTE ppx: Heparin FEN/GI: Regular Admission and Anticipated Discharge Date Admission Date: August 07, 2024 Supervising Physician Co-Signing Physician Notes I personally examined the patient and verified mcclure points of history and exam, discussed case, and agree with decision making and plan documented by Dr. Nielsen. Awaiting placement in for continued hospice care given patients inability to care for self. Subjective Patient seen and evaluated at bedside this morning. No acute events overnight. Eager to find placement. CM working on this. Is followed by [facility] hospice Review of Systems Review of Systems: reviewed, per HPI Physical Exam Physical Exam: Constitutional: ill appearing, NAD HEENT: NCAT, no conjunctival injection CV: clinically well perfused Resp: no increased work of breathing GI: nondistended MSK: no gross deformities appreciated Skin: warm, dry, no rash appreciated Neuro: alert, oriented, no focal neurologic deficit appreciated Results & Data Results & Data Vital Signs (Past 12 Hours) Vital Signs Temp Pulse Resp BP Pulse Ox O2 Del Method O2 Flow Rate 08/13/24 09:58 Nasal Cannula 4 08/13/24 07:45 36.5 C 66 18 108/72 100 Nasal Cannula 5 Resident Activity Tracking Resident Involvement: Resident Care Provided Care Provided: Adult Hospital Medicine (2) Fall Encounter type: initial encounter Qualified Code(s): W19.XXXA - Unspecified fall, initial encounter (3) Medication overdose Encounter type: initial encounter Injury intent: accidental or unintentional Qualified Code(s): T50.901A - Poisoning by unspecified drugs, medicaments and biological substances, accidental (unintentional), initial encounter
--- NOTE | 2024-08-14 13:49 | Hospitalist Progress Note ---
Date of Service August 14, 2024 Assessment & Plan (1) Unable to care for self: (2) Fall: (3) Medication overdose: (4) Chronic hypoxic respiratory failure, on home oxygen therapy: (5) IPF (idiopathic pulmonary fibrosis): (6) Peritoneal carcinomatosis: Plan 74-year-old female with medical history significant for pulmonary fibrosis/ILD (chronically on 5 L), pulmonary hypertension, heart failure with preserved ejection fraction, PSVT, irritable bowel syndrome, GERD, hypothyroidism, and bipolar disorder among other medical conditions and who is on home hospice, came in after a fall and due to concern for inability to care for self: Unable to care for self: High risk for recurrent falls and no longer safe for patient to live independently, even with existing caregiver hours - [facility] home hospice recommending 24-hour care, for which patient would require placement. - CM following re: placement needs, [facility] hospice following Fall: Admitted after fall, no acute fracture or intracranial hemorrhage. Patient with generalized weakness at baseline and inability to ambulate independently in a safe manner. - Resume home regimen for pain - Fall precautions while here - Ambulate with walker and with assistance only Chronic Respiratory Failure, on home O2//Pulmonary Fibrosis: Chronic hypoxic respiratory failure due to pulmonary fibrosis. Patient appears to be stable from this standpoint at this time on her home oxygen - Will continue O2 per her home regimen 24 hours a day (5 L) - Every 6 hours as needed DuoNebs - Continue prednisone 10 mg daily, home dose - continue mycophenolate 250 mg twice daily, home dose CHF with preserved ejection fraction - monitor I&O and daily weights - continue Lasix 40 mg daily, consider additional diuresis as needed if appearing fluid overloaded - continue Aldactone 25 mg daily - continue Entresto 1 tab twice daily - continue Toprol XL 50 mg daily CKD Stage 3A; Creatinine at baseline around 1.4 - Renal dosing as appropriate Hypothyroidism - continue Synthroid 137 mcg daily Mood disorder/bipolar disorder - continue amitriptyline 25 mg daily - continue BuSpar 10 mg 3 times daily - continue Lamictal 150 mg daily - continue Topamax 100 mg twice daily GERD - continue Protonix 40 mg twice daily VTE ppx: Heparin FEN/GI: Regular Admission and Anticipated Discharge Date Admission Date: August 07, 2024 Supervising Physician Co-Signing Physician Notes I personally examined the patient and verified mcclure points of history and exam, discussed case, and agree with decision making and plan documented by Dr. Nielsen. [facility] hospice nurse at bedside today during exam. Patient refusing any additional blood work. She is asking for as needed furosemide for discomfort associate with leg swelling. Comfort measures only. Awaiting placement in for continued hospice care given patients inability to care for self. Subjective Patient seen and evaluated at bedside this morning. No acute events overnight. Patient with increased LE edema. States she takes additional 40mg Lasix at home when this occurs. Otherwise, still eager to find hospice placement. Review of Systems Review of Systems: reviewed, per HPI Physical Exam Physical Exam: Constitutional: ill appearing, NAD HEENT: NCAT, no conjunctival injection CV: clinically well perfused Resp: no increased work of breathing GI: nondistended MSK: no gross deformities appreciated Skin: warm, dry, no rash appreciated Neuro: alert, oriented, no focal neurologic deficit appreciated Results & Data Results & Data Vital Signs (Past 12 Hours) Vital Signs Temp Pulse Resp BP Pulse Ox O2 Del Method O2 Flow Rate 08/14/24 09:00 Room Air 2 08/14/24 08:02 36.6 C 71 16 117/55 L 100 Nasal Cannula 2 Resident Activity Tracking Resident Involvement: Resident Care Provided Care Provided: Adult Hospital Medicine (2) Fall Encounter type: initial encounter Qualified Code(s): W19.XXXA - Unspecified fall, initial encounter (3) Medication overdose Encounter type: initial encounter Injury intent: accidental or unintentional Qualified Code(s): T50.901A - Poisoning by unspecified drugs, medicaments and biological substances, accidental (unintentional), initial encounter
[2024-08-14] MEDS: FUROSEMIDE 40 MG TAB PO ONE (14:11)
--- NOTE | 2024-08-15 14:44 | Hospitalist Progress Note ---
Date of Service August 15, 2024 Assessment & Plan (1) Unable to care for self: (2) Fall: (3) Medication overdose: (4) Chronic hypoxic respiratory failure, on home oxygen therapy: (5) IPF (idiopathic pulmonary fibrosis): (6) Peritoneal carcinomatosis: Plan 74-year-old female with medical history significant for pulmonary fibrosis/ILD (chronically on 5 L), pulmonary hypertension, heart failure with preserved ejection fraction, PSVT, irritable bowel syndrome, GERD, hypothyroidism, and bipolar disorder among other medical conditions and who is on home hospice, came in after a fall and due to concern for inability to care for self: Unable to care for self: High risk for recurrent falls and no longer safe for patient to live independently, even with existing caregiver hours - [facility] home hospice recommending 24-hour care, for which patient would require placement. - CM following re: placement needs, [facility] hospice following Fall: Admitted after fall, no acute fracture or intracranial hemorrhage. Patient with generalized weakness at baseline and inability to ambulate independently in a safe manner. - Resume home regimen for pain - Fall precautions while here - Ambulate with walker and with assistance only Chronic Respiratory Failure, on home O2//Pulmonary Fibrosis: Chronic hypoxic respiratory failure due to pulmonary fibrosis. Patient appears to be stable from this standpoint at this time on her home oxygen - Will continue O2 per her home regimen 24 hours a day (5 L) - Every 6 hours as needed DuoNebs - Continue prednisone 10 mg daily, home dose - continue mycophenolate 250 mg twice daily, home dose CHF with preserved ejection fraction - monitor I&O and daily weights - continue Lasix 40 mg daily, consider additional diuresis as needed if appearing fluid overloaded - continue Aldactone 25 mg daily - continue Entresto 1 tab twice daily - continue Toprol XL 50 mg daily CKD Stage 3A; Creatinine at baseline around 1.4 - Renal dosing as appropriate Hypothyroidism - continue Synthroid 137 mcg daily Mood disorder/bipolar disorder - continue amitriptyline 25 mg daily - continue BuSpar 10 mg 3 times daily - continue Lamictal 150 mg daily - continue Topamax 100 mg twice daily GERD - continue Protonix 40 mg twice daily VTE ppx: Heparin FEN/GI: Regular Admission and Anticipated Discharge Date Admission Date: August 07, 2024 Supervising Physician Co-Signing Physician Notes Attending attestation Pt seen and examined in concert with Dr. Nielsen. In agreement with the documented findings as noted in the resident documentation with any exceptions or additions as noted here. Resting comforatbly in bed without acute complaint. On examination, S1/S2 nl RRR no MCG. CTAB. Ambulatory dysfunction w/ fall, failure to thrive in the setting of hospice care for metastatic colon cancer and IPF - case management working toward placement to support ongoing care. Ambulatory precautions Chronic hypoxic respiratory failure on baseline O2 with idiopathic pulmonary fibrosis - continue albuterol PRN, prednisone and mycophenolate. Baseline O2 need 5L HFpEF - stable, continue maintenance medications as noted Else see resident documentation as noted. Subjective Patient seen and evaluated at bedside this morning. No acute events overnight. Resting comfortably this am. No acute concerns. Continues to be hopeful for placement at [facility]. Review of Systems 2 Review of Systems: reviewed, per HPI Physical Exam Physical Exam: Constitutional: ill appearing, NAD HEENT: NCAT, no conjunctival injection CV: clinically well perfused Resp: no increased work of breathing GI: nondistended MSK: no gross deformities appreciated Skin: warm, dry, no rash appreciated Neuro: alert, oriented, no focal neurologic deficit appreciated Results & Data Results & Data Vital Signs (Past 12 Hours) Vital Signs Temp Pulse Resp BP Pulse Ox O2 Del Method O2 Flow Rate 08/15/24 07:30 Nasal Cannula 5 08/15/24 07:28 36.6 C 65 18 94/59 L 95 Room Air Resident Activity Tracking Resident Involvement: Resident Care Provided Care Provided: Adult Hospital Medicine (2) Fall Encounter type: initial encounter Qualified Code(s): W19.XXXA - Unspecified fall, initial encounter (3) Medication overdose Encounter type: initial encounter Injury intent: accidental or unintentional Qualified Code(s): T50.901A - Poisoning by unspecified drugs, medicaments and biological substances, accidental (unintentional), initial encounter
--- NOTE | 2024-08-16 11:25 | Hospitalist Progress Note ---
Date of Service August 16, 2024 Assessment & Plan (1) Unable to care for self: (2) Fall: (3) Medication overdose: (4) Chronic hypoxic respiratory failure, on home oxygen therapy: (5) IPF (idiopathic pulmonary fibrosis): (6) Peritoneal carcinomatosis: Plan 74-year-old female with medical history significant for pulmonary fibrosis/ILD (chronically on 5 L), pulmonary hypertension, heart failure with preserved ejection fraction, PSVT, irritable bowel syndrome, GERD, hypothyroidism, and bipolar disorder among other medical conditions and who is on home hospice, came in after a fall and due to concern for inability to care for self: Unable to care for self: High risk for recurrent falls and no longer safe for patient to live independently, even with existing caregiver hours - [facility] home hospice recommending 24-hour care, for which patient would require placement. - CM following re: placement needs, [facility] hospice following Fall: Admitted after fall, no acute fracture or intracranial hemorrhage. Patient with generalized weakness at baseline and inability to ambulate independently in a safe manner. - Increase Dilaudid dose frequency to 2mg q1h PRN - Fall precautions while here - Ambulate with walker and with assistance only Chronic Respiratory Failure, on home O2//Pulmonary Fibrosis: Chronic hypoxic respiratory failure due to pulmonary fibrosis. Patient appears to be stable from this standpoint at this time on her home oxygen - Will continue O2 per her home regimen 24 hours a day (5 L) - Every 6 hours as needed DuoNebs - Continue prednisone 10 mg daily, home dose - continue mycophenolate 250 mg twice daily, home dose CHF with preserved ejection fraction - monitor I&O and daily weights - continue Lasix 40 mg daily, consider additional diuresis as needed if appearing fluid overloaded - continue Aldactone 25 mg daily - continue Entresto 1 tab twice daily - continue Toprol XL 50 mg daily CKD Stage 3A; Creatinine at baseline around 1.4 - Renal dosing as appropriate Hypothyroidism - continue Synthroid 137 mcg daily Mood disorder/bipolar disorder - continue amitriptyline 25 mg daily - continue BuSpar 10 mg 3 times daily - continue Lamictal 150 mg daily - continue Topamax 100 mg twice daily GERD - continue Protonix 40 mg twice daily VTE ppx: Heparin FEN/GI: Regular Admission and Anticipated Discharge Date Admission Date: August 07, 2024 Supervising Physician Co-Signing Physician Notes Attending attestation Pt seen and examined in concert with Dr. Nielsen. In agreement with the documented findings as noted in the resident documentation with any exceptions or additions as noted here. Resting comforatbly in bed without acute complaint, pain well controlled on present regimen after increase in frequency of PRN medication. On examination, S1/S2 nl RRR no MCG. CTAB. Ambulatory dysfunction w/ fall, failure to thrive in the setting of hospice care for metastatic colon cancer and IPF - case management working toward placement to support ongoing care. Ambulatory precautions. Agree w/ increased frequency of pain control and ongoing monitoring. Chronic hypoxic respiratory failure on baseline O2 with idiopathic pulmonary fibrosis - continue albuterol PRN, prednisone and mycophenolate. Baseline O2 need 5L HFpEF - stable, continue maintenance medications as noted Else see resident documentation as noted. Subjective Patient seen and evaluated at bedside this morning. No acute events overnight. Overall, comfortable resting in bed. Does report increased frequency in bouts of pain. Otherwise, no acute concerns. Review of Systems Review of Systems: reviewed, per HPI Physical Exam Physical Exam: Constitutional: ill appearing, NAD HEENT: NCAT, no conjunctival injection CV: clinically well perfused Resp: no increased work of breathing GI: nondistended MSK: no gross deformities appreciated Skin: warm, dry, no rash appreciated Neuro: alert, oriented, no focal neurologic deficit appreciated Results & Data Results & Data Vital Signs (Past 12 Hours) Vital Signs Temp Pulse Resp BP Pulse Ox O2 Del Method O2 Flow Rate 08/16/24 08:33 67 18 95 Nasal Cannula 5 08/16/24 07:49 Nasal Cannula 5 08/16/24 07:36 36.5 C 77 16 114/74 100 Nasal Cannula 5 Resident Activity Tracking Resident Involvement: Resident Care Provided Care Provided: Adult Hospital Medicine (2) Fall Encounter type: initial encounter Qualified Code(s): W19.XXXA - Unspecified fall, initial encounter (3) Medication overdose Encounter type: initial encounter Injury intent: accidental or unintentional Qualified Code(s): T50.901A - Poisoning by unspecified drugs, medicaments and biological substances, accidental (unintentional), initial encounter
[2024-08-17] MEDS: HYDROmorphone HCL 2 MG TAB PO PRN (10:24)
--- NOTE | 2024-08-17 12:03 | Hospitalist Progress Note ---
Date of Service August 17, 2024 Assessment & Plan (1) Unable to care for self: (2) Fall: (3) Medication overdose: (4) Chronic hypoxic respiratory failure, on home oxygen therapy: (5) IPF (idiopathic pulmonary fibrosis): (6) Peritoneal carcinomatosis: Plan 74-year-old female with medical history significant for pulmonary fibrosis/ILD (chronically on 5 L), pulmonary hypertension, heart failure with preserved ejection fraction, PSVT, irritable bowel syndrome, GERD, hypothyroidism, and bipolar disorder among other medical conditions and who is on home hospice, came in after a fall and due to concern for inability to care for self: Unable to care for self: High risk for recurrent falls and no longer safe for patient to live independently, even with existing caregiver hours - [facility] home hospice recommending 24-hour care, for which patient would require placement. - CM following re: placement needs, [facility] hospice following Fall: Admitted after fall, no acute fracture or intracranial hemorrhage. Patient with generalized weakness at baseline and inability to ambulate independently in a safe manner. - Increase Dilaudid dose frequency to 2mg q1h PRN - Fall precautions while here - Ambulate with walker and with assistance only Chronic Respiratory Failure, on home O2//Pulmonary Fibrosis: Chronic hypoxic respiratory failure due to pulmonary fibrosis. Patient appears to be stable from this standpoint at this time on her home oxygen - Will continue O2 per her home regimen 24 hours a day (5 L) - Every 6 hours as needed DuoNebs - Continue prednisone 10 mg daily, home dose - continue mycophenolate 250 mg twice daily, home dose CHF with preserved ejection fraction - monitor I&O and daily weights - continue Lasix 40 mg daily, consider additional diuresis as needed if appearing fluid overloaded - continue Aldactone 25 mg daily - continue Entresto 1 tab twice daily - continue Toprol XL 50 mg daily CKD Stage 3A; Creatinine at baseline around 1.4 - Renal dosing as appropriate Hypothyroidism - continue Synthroid 137 mcg daily Mood disorder/bipolar disorder - continue amitriptyline 25 mg daily - continue BuSpar 10 mg 3 times daily - continue Lamictal 150 mg daily - continue Topamax 100 mg twice daily GERD - continue Protonix 40 mg twice daily VTE ppx: Heparin FEN/GI: Regular Admission and Anticipated Discharge Date Admission Date: August 07, 2024 Supervising Physician Co-Signing Physician Notes Attending attestation Pt seen and examined in concert with Dr. Nielsen. In agreement with the documented findings as noted in the resident documentation with any exceptions or additions as noted here. Pain well controlled on current regimen. Reports increase freq in bowel movements and defers further evaluation at this time. On examination, S1/S2 nl RRR no MCG. CTAB. Ambulatory dysfunction w/ fall, failure to thrive in the setting of hospice care for metastatic colon cancer and IPF - case management working toward placement to support ongoing care. Ambulatory precautions. Loose bowel movements - did have h/o GIB but defers evaluation at this time. Continue to monitor/inquire. Chronic hypoxic respiratory failure on baseline O2 with idiopathic pulmonary fibrosis - continue albuterol PRN, prednisone and mycophenolate. Baseline O2 need 5L HFpEF - stable, continue maintenance medications as noted Else see resident documentation as noted. Subjective Patient seen and evaluated at bedside this morning. No acute events overnight. States that she is having more fequent and looser bowel movements. This is similar to past episodes of GI bleeding that have occurred in the setting of her unknown malignancy. At present, patient is not SOB, has no chest pain, does not feel lightheaded or dizzy. Reports being anxious, had taken PRN Valium just prior to our interaction and is resting comfortably. Review of Systems Review of Systems: reviewed, per HPI Physical Exam Physical Exam: Constitutional: ill appearing, NAD HEENT: NCAT, no conjunctival injection CV: clinically well perfused Resp: no increased work of breathing GI: nondistended MSK: no gross deformities appreciated Skin: warm, dry, no rash appreciated Neuro: alert, oriented, no focal neurologic deficit appreciated Results & Data Results & Data Vital Signs (Past 12 Hours) Vital Signs Temp Pulse Resp BP Pulse Ox O2 Del Method O2 Flow Rate 08/17/24 07:52 37.3 C 78 18 119/75 100 Nasal Cannula 5 08/17/24 07:20 Nasal Cannula 5 Resident Activity Tracking Resident Involvement: Resident Care Provided Care Provided: Adult Hospital Medicine (2) Fall Encounter type: initial encounter Qualified Code(s): W19.XXXA - Unspecified fall, initial encounter (3) Medication overdose Encounter type: initial encounter Injury intent: accidental or unintentional Qualified Code(s): T50.901A - Poisoning by unspecified drugs, medicaments and biological substances, accidental (unintentional), initial encounter
--- NOTE | 2024-08-18 10:40 | Discharge Summary ---
Date of Service August 18, 2024 Admission HPI Per Admitting Provider This is a 74-year-old female with medical history significant for pulmonary fibrosis/ILD (chronically on 5 L), pulmonary hypertension, heart failure with preserved ejection fraction, PSVT, irritable bowel syndrome, GERD, hypothyroidism, and bipolar disorder among other medical conditions who comes in with generalized weakness, falls, and likely narcotic and benzodiazepine overdose. Of note, per the family and per patient she does have what she describes as an abdominal cancer with metastases (possibly colon carcinoma) which has not been clearly defined, and for which she is currently not getting any treatment. Patient and family also note that she is on home hospice. Today, patient states that in the morning at around 4 to 4:30 AM, she tried to get up and tripped over her automatic chair. She did not remember having any head trauma. She did not pass out. She did have some left hip pain as well as some left arm/shoulder pain. Because of the pain she took her breakthrough pain medications which consisted of Dilaudid taken with Benadryl because of the itching; she also took a dose of her Ativan at that time as well. Then it appears she may have taken another dose a little bit later around 9 AM. Patient does have a fentanyl patch (25 mcg ) on as well. When her home health aide came in and tried to provide routine care, she found that the patient was very somnolent. it appears that they may have attempted to call EMS, however patient refused transport at the time. At around 1030 AM, the hospice nurse came in as well, and noted patient to be very somnolent. at this point EMS was called, and this time patient was brought to the ER. In the ER patient was noted to be somnolent, but with 0.2 mg of Narcan she came back to baseline mental status. She has been awake and alert since that time. Other than the left hip pain and left arm/shoulder pain noted above, patient has no other acute complaints. Denies any chest pain or shortness of breath. Denies any fevers, chills, nausea, vomiting, or diarrhea. She states that her legs do not appear to be swollen. As noted patient is on outpatient hospice. She has nursing and aide coverage about 40 hours a week. However it appears that the hospice agency believes at this point she will need full-time 24-hour care, given she is not safe to manage her medications or care for herself. Admission Exam Per Admitting Provider Constitutional: WD/WN, vitals as above Eyes: PERRL and EOM intact bilaterally ENMT: Nose: no external nose abnormality and no facial tenderness Mouth: + poor dentition; no oral mucosal abnormality Respiratory: normal respiratory effort and + abnormal respiratory pattern; no respiratory distress, no cough and no audible wheezes Auscultation: + crackles (Minimal dry sounding crackles) and + rhonchi; no wheezes Cardiovascular: RRR, no murmur, no edema Heart Sounds: normal S1 and normal S2 Extremities: + pedal edema and + edema (1+ b/l LE edema) Gastrointestinal (Abdomen): normal bowel sounds, soft, nontender, no hepatosplenomegaly Musculoskeletal: no cyanosis or clubbing, extremities motor strength 5/5 (Patient able to move LE against resistance, but unable to ambulate on own) Neurologic: PERRL, EOMI, accommodation nl, no face palsy, no dysarthria Gait: + gait assisted Psychiatric: Orientation: alert and oriented x 3 Thought Process: linear/logical thought process Judgment: + fair judgement Principal Diagnosis Peritoneal carcinomatosis, pulmonary fibrosis, failure to thrive, CHF Discharge Exam Constitutional: ill appearing, NAD HEENT: NCAT, no conjunctival injection CV: clinically well perfused Resp: no increased work of breathing GI: nondistended MSK: no gross deformities appreciated Skin: warm, dry, no rash appreciated Neuro: alert, oriented, no focal neurologic deficit appreciated Discharge Data Allergies Allergy/AdvReac Type Severity Reaction Status Date / Time latex Allergy Intermediate Rash, hand Verified 06/19/24 16:12 swelling Sulfa (Sulfonamide Allergy Intermediate Rash Verified 06/19/24 16:12 Antibiotics) Penicillins Allergy Unknown Unknown Verified 06/19/24 16:12 reaction (as teenager) morphine AdvReac Intermediate Anxiety Verified 06/19/24 16:12 Consultations 08/07/24 15:01 ED Decision to Admit Stat 08/07/24 17:13 ED Decision to Admit Stat Ordered Studies 08/07/24 12:41 CT head/brain wo con Stat Hospital Course (1) Unable to care for self: (2) Fall: (3) Medication overdose: (4) Chronic hypoxic respiratory failure, on home oxygen therapy: (5) IPF (idiopathic pulmonary fibrosis): (6) Peritoneal carcinomatosis: Plan 74-year-old female with medical history significant for pulmonary fibrosis/ILD (chronically on 5 L), pulmonary hypertension, heart failure with preserved ejection fraction, PSVT, irritable bowel syndrome, GERD, hypothyroidism, and bipolar disorder among other medical conditions and who is on home hospice, came in after a fall and due to concern for inability to care for self: Unable to care for self: High risk for recurrent falls and no longer safe for patient to live independently, even with existing caregiver hours - [facility] home hospice recommending 24-hour care, for which patient would require placement. - CM following re: placement needs, [facility] hospice following Fall: Admitted after fall, no acute fracture or intracranial hemorrhage. Patient with generalized weakness at baseline and inability to ambulate independently in a safe manner. - Increase Dilaudid dose frequency to 2mg q1h PRN - Fall precautions while here - Ambulate with walker and with assistance only Chronic Respiratory Failure, on home O2//Pulmonary Fibrosis: Chronic hypoxic respiratory failure due to pulmonary fibrosis. Patient appears to be stable from this standpoint at this time on her home oxygen - Will continue O2 per her home regimen 24 hours a day (5 L) - Every 6 hours as needed DuoNebs - Continue prednisone 10 mg daily, home dose - continue mycophenolate 250 mg twice daily, home dose CHF with preserved ejection fraction - monitor I&O and daily weights - continue Lasix 40 mg daily, consider additional diuresis as needed if appearing fluid overloaded - continue Aldactone 25 mg daily - continue Entresto 1 tab twice daily - continue Toprol XL 50 mg daily CKD Stage 3A; Creatinine at baseline around 1.4 - Renal dosing as appropriate Hypothyroidism - continue Synthroid 137 mcg daily Mood disorder/bipolar disorder - continue amitriptyline 25 mg daily - continue BuSpar 10 mg 3 times daily - continue Lamictal 150 mg daily - continue Topamax 100 mg twice daily GERD - continue Protonix 40 mg twice daily VTE ppx: Heparin FEN/GI: Regular Total Time Total Time Spent Total Time Spent (In Minutes): see attending documentation Discharge Plan Discharge Items Patient Disposition: Hospice - Medical Facility Reason For Visit: FALLS, WEAKNESS Discharge Diagnosis: Malignancy, Pulmonary Fibrosis, Malignancy Activity: Resume your previous activity Activity Comment: as tolerated Non-emergency contact: Primary Care Provider Call non-emergency contact if: your symptoms worsen Follow-up/Referrals: Ted Singh MD [Primary Care Provider] - Diet: Regular Addtl Attending Provider Instructions: You were admitted for comfort care after a fall. You were on hospice when you arrived at our facility and we continued this care while you were admitted. Thank you for allowing us to participate in your care. Pending Studies at Discharge: No Stand-Alone Forms: My [facility] Skilled Items Patient informed of condition?: Yes DNR: Yes Discharge Level of Care: Skilled Communicable Disease: No Discharge Prognosis: Stable Lines: None Urinary Catheter: No Medications and DC Order Prescriptions: Continued amitriptyline 25 mg tablet 25 mg PO HS Qty: 90 3RF furosemide [Lasix] 40 mg tablet 40 mg PO DAILY PRN (Reason: weight gain, edema, SOB) Qty: 30 2RF Rx Instructions: Do not put in bubble packs. albuterol sulfate 90 mcg/actuation HFA aerosol inhaler 2 inh inhalation Q4H PRN (Reason: shortness of breath or wheezing) Qty: 6.7 0RF pantoprazole 40 mg tablet,delayed release (DR/EC) 40 mg PO BID Qty: 60 3RF spironolactone 25 mg tablet 25 mg PO DAILY Qty: 90 3RF prednisone 2.5 mg tablet 7.5 mg PO DAILY Qty: 90 3RF (DME) Portable Oxygen Misc See Rx Instructions .Route Qty: 1 0RF Rx Instructions: POC at 6 L/min via nasal cannula to be used at all times. Length of need 99 years. (DME) Oxygen Home Liters Per Minute See Rx Instructions .ROUTE .MEDSUPPLY Qty: 6 0RF Rx Instructions: Home oxygen concentrator with oxygen to be used at a flow rate of 2 L/min via nasal cannula at all times. mycophenolate mofetil 250 mg capsule 250 mg PO BID Qty: 180 3RF Rx Instructions: TAKES AT 1200 & HS Entresto 49-51 mg tablet 1 tab PO BID Qty: 180 3RF Ozempic 0.25 mg or 0.5 mg (2 mg/3 mL) pen injector subcut Jardiance 10 mg tablet 10 mg PO DAILY Qty: 30 12RF Rx Instructions: Start with May pill pack levothyroxine 137 mcg tablet 137 mcg PO QAM buspirone 10 mg tablet 10 mg PO TID cyanocobalamin (vitamin B-12) 1,000 mcg capsule 1,000 mcg PO QAM gabapentin 100 mg Capsule 100 mg PO BID Rx Instructions: TAKES 100 MG AT 1200 & HS topiramate 100 mg Tablet 100 mg PO BID Rx Instructions: TAKES AT 1200 & HS lamotrigine 150 mg tablet 150 mg PO HS acetaminophen [Tylenol] 325 mg Tablet 650 mg PO QID PRN (Reason: Pain) metoprolol succinate 50 mg Tablet Extended Release 24 Hr 50 mg PO BID Qty: 60 0RF furosemide 40 mg Tablet 40 mg PO QAM Qty: 30 0RF ipratropium-albuterol 0.5 mg-3 mg(2.5 mg base)/3 mL solution for nebulization 3 ml INHALATION Q6H PRN (Reason: sob) hyoscyamine sulfate 0.125 mg tablet 0.125 mg PO Q4H PRN (Reason: terminal secretions) diphenhydramine HCl [Benadryl] 25 mg capsule 25 mg PO Q8H PRN (Reason: Itching) docusate sodium [Colace] 100 mg capsule 100 mg PO BID lorazepam 1 mg tablet 0.5 mg PO Q4H PRN (Reason: restless/insomnia) Rx Instructions: may repeat in 1 hour if not relieved. 2 tabs q15min prn seizures fentanyl 25 mcg/hr patch 72 hour 25 mcg topical Q72H haloperidol lactate 2 mg/mL concentrate 1 mg PO Q4H PRN (Reason: n/v, agitation) [place] Saline Gel [place],Non-Aerosol 2 spray INTRANASAL Q4H PRN (Reason: dry nostril) Admission Data Admit Date/Time: 08/07/24 17:08 Attending Provider: Jarad Prado Admit Provider: Galileo Hawk Primary Care Provider: Ted Singh Other Providers: Malcolm Tai; Galileo Hawk; [place],[facility]; [facility] Resident Activity Tracking Resident Involvement: Resident Care Provided Care Provided: Adult Hospital Medicine
--- NOTE | 2024-08-18 12:51 | Hospitalist Progress Note ---
Date of Service August 18, 2024 Assessment & Plan (1) Unable to care for self: (2) Fall: (3) Medication overdose: (4) Chronic hypoxic respiratory failure, on home oxygen therapy: (5) IPF (idiopathic pulmonary fibrosis): (6) Peritoneal carcinomatosis: Plan 74-year-old female with medical history significant for pulmonary fibrosis/ILD (chronically on 5 L), pulmonary hypertension, heart failure with preserved ejection fraction, PSVT, irritable bowel syndrome, GERD, hypothyroidism, and bipolar disorder among other medical conditions and who is on home hospice, came in after a fall and due to concern for inability to care for self: Unable to care for self: High risk for recurrent falls and no longer safe for patient to live independently, even with existing caregiver hours - [facility] home hospice recommending 24-hour care, for which patient would require placement. - CM following re: placement needs, [facility] hospice following Accepted at Center Care plan for dc 08/19/24 Fall: Admitted after fall, no acute fracture or intracranial hemorrhage. Patient with generalized weakness at baseline and inability to ambulate independently in a safe manner. - Increase Dilaudid dose frequency to 2mg q1h PRN - Fall precautions while here - Ambulate with walker and with assistance only Chronic Respiratory Failure, on home O2//Pulmonary Fibrosis: Chronic hypoxic respiratory failure due to pulmonary fibrosis. Patient appears to be stable from this standpoint at this time on her home oxygen - Will continue O2 per her home regimen 24 hours a day (5 L) - Every 6 hours as needed DuoNebs - Continue prednisone 10 mg daily, home dose - continue mycophenolate 250 mg twice daily, home dose CHF with preserved ejection fraction - monitor I&O and daily weights - continue Lasix 40 mg daily, consider additional diuresis as needed if appearing fluid overloaded - continue Aldactone 25 mg daily - continue Entresto 1 tab twice daily - continue Toprol XL 50 mg daily CKD Stage 3A; Creatinine at baseline around 1.4 - Renal dosing as appropriate Hypothyroidism - continue Synthroid 137 mcg daily Mood disorder/bipolar disorder - continue amitriptyline 25 mg daily - continue BuSpar 10 mg 3 times daily - continue Lamictal 150 mg daily - continue Topamax 100 mg twice daily GERD - continue Protonix 40 mg twice daily VTE ppx: Heparin FEN/GI: Regular Admission and Anticipated Discharge Date Admission Date: August 07, 2024 Supervising Physician Co-Signing Physician Notes I personally examined the patient and verified all mcclure points of history and exam, discussed case, and agree with decision making with Dr Morales gaspar - for [facility] care hopefully tomorrow vitals noted nad heent nc at mmm breathing unlabored no accessory muscles good effort skin no rashes no pallor or icterus Ambulatory dysfunction w/ fall, failure to thrive in the setting of hospice care for metastatic colon cancer and IPF - for [facility] care tomorrow Chronic hypoxic respiratory failure on baseline O2 with idiopathic pulmonary fibrosis - continue albuterol PRN, prednisone and mycophenolate. Baseline O2 ne ed 5L HFpEF - stable, continue maintenance medications as noted Else see resident documentation as noted. for [place] care once able to be arranged Subjective Patient seen and evaluated at bedside this morning. No acute events overnight. No acute complaints this am. Review of Systems Review of Systems: reviewed, per HPI Physical Exam Physical Exam: Constitutional: ill appearing, NAD HEENT: NCAT, no conjunctival injection CV: clinically well perfused Resp: no increased work of breathing GI: nondistended MSK: no gross deformities appreciated Skin: warm, dry, no rash appreciated Neuro: alert, oriented, no focal neurologic deficit appreciated Results & Data Results & Data Vital Signs (Past 12 Hours) Vital Signs Temp Pulse Resp BP Pulse Ox O2 Del Method O2 Flow Rate 08/18/24 07:30 Nasal Cannula 5 08/18/24 07:14 36.4 C L 70 16 109/67 100 Nasal Cannula 5 Resident Activity Tracking Resident Involvement: Resident Care Provided Care Provided: Adult Hospital Medicine (2) Fall Encounter type: initial encounter Qualified Code(s): W19.XXXA - Unspecified fall, initial encounter (3) Medication overdose Encounter type: initial encounter Injury intent: accidental or unintentional Qualified Code(s): T50.901A - Poisoning by unspecified drugs, medicaments and biological substances, accidental (unintentional), initial encounter
[2024-08-18 15:25] VITALS: RESP 18
--- NOTE | 2024-08-18 19:14 | Billing Data ---
Date of Service August 18, 2024 Coding Level of Care Code 07479 SUB INP/OBS CARE
[2024-08-18] MEDS: FAMOTIDINE 40 MG TABLET PO ONE (22:14)
[2024-08-19 07:54] VITALS: BP 129/72; PULSE 80; TEMP 98.1; O2SAT 98
--- NOTE | 2024-08-19 08:56 | Discharge Summary ---
Date of Service August 19, 2024 Admission HPI Per Admitting Provider This is a 74-year-old female with medical history significant for pulmonary fibrosis/ILD (chronically on 5 L), pulmonary hypertension, heart failure with preserved ejection fraction, PSVT, irritable bowel syndrome, GERD, hypothyroidism, and bipolar disorder among other medical conditions who comes in with generalized weakness, falls, and likely narcotic and benzodiazepine overdose. Of note, per the family and per patient she does have what she describes as an abdominal cancer with metastases (possibly colon carcinoma) which has not been clearly defined, and for which she is currently not getting any treatment. Patient and family also note that she is on home hospice. Today, patient states that in the morning at around 4 to 4:30 AM, she tried to get up and tripped over her automatic chair. She did not remember having any head trauma. She did not pass out. She did have some left hip pain as well as some left arm/shoulder pain. Because of the pain she took her breakthrough pain medications which consisted of Dilaudid taken with Benadryl because of the itching; she also took a dose of her Ativan at that time as well. Then it appears she may have taken another dose a little bit later around 9 AM. Patient does have a fentanyl patch (25 mcg ) on as well. When her home health aide came in and tried to provide routine care, she found that the patient was very somnolent. it appears that they may have attempted to call EMS, however patient refused transport at the time. At around 1030 AM, the hospice nurse came in as well, and noted patient to be very somnolent. at this point EMS was called, and this time patient was brought to the ER. In the ER patient was noted to be somnolent, but with 0.2 mg of Narcan she came back to baseline mental status. She has been awake and alert since that time. Other than the left hip pain and left arm/shoulder pain noted above, patient has no other acute complaints. Denies any chest pain or shortness of breath. Denies any fevers, chills, nausea, vomiting, or diarrhea. She states that her legs do not appear to be swollen. As noted patient is on outpatient hospice. She has nursing and aide coverage about 40 hours a week. However it appears that the hospice agency believes at this point she will need full-time 24-hour care, given she is not safe to manage her medications or care for herself. Admission Exam Per Admitting Provider Constitutional: WD/WN, vitals as above Eyes: PERRL and EOM intact bilaterally ENMT: Nose: no external nose abnormality and no facial tenderness Mouth: + poor dentition; no oral mucosal abnormality Respiratory: normal respiratory effort and + abnormal respiratory pattern; no respiratory distress, no cough and no audible wheezes Auscultation: + crackles (Minimal dry sounding crackles) and + rhonchi; no wheezes Cardiovascular: RRR, no murmur, no edema Heart Sounds: normal S1 and normal S2 Extremities: + pedal edema and + edema (1+ b/l LE edema) Gastrointestinal (Abdomen): normal bowel sounds, soft, nontender, no hepatosplenomegaly Musculoskeletal: no cyanosis or clubbing, extremities motor strength 5/5 (Patient able to move LE against resistance, but unable to ambulate on own) Neurologic: PERRL, EOMI, accommodation nl, no face palsy, no dysarthria Gait: + gait assisted Psychiatric: Orientation: alert and oriented x 3 Thought Process: linear/logical thought process Judgment: + fair judgement Principal Diagnosis Carcinomatosis, failure to thrive Discharge Exam Constitutional: ill appearing, NAD HEENT: NCAT, no conjunctival injection CV: clinically well perfused Resp: no increased work of breathing GI: nondistended MSK: no gross deformities appreciated Skin: warm, dry, no rash appreciated Neuro: alert, oriented, no focal neurologic deficit appreciated Discharge Data Allergies Allergy/AdvReac Type Severity Reaction Status Date / Time latex Allergy Intermediate Rash, hand Verified 06/19/24 16:12 swelling Sulfa (Sulfonamide Allergy Intermediate Rash Verified 06/19/24 16:12 Antibiotics) Penicillins Allergy Unknown Unknown Verified 06/19/24 16:12 reaction (as teenager) morphine AdvReac Intermediate Anxiety Verified 06/19/24 16:12 Consultations 08/07/24 15:01 ED Decision to Admit Stat 08/07/24 17:13 ED Decision to Admit Stat Ordered Studies 08/07/24 12:41 CT head/brain wo con Stat Hospital Course (1) Unable to care for self: (2) Fall: (3) Medication overdose: (4) Chronic hypoxic respiratory failure, on home oxygen therapy: (5) IPF (idiopathic pulmonary fibrosis): (6) Peritoneal carcinomatosis: Plan 74-year-old female with medical history significant for pulmonary fibrosis/ILD (chronically on 5 L), pulmonary hypertension, heart failure with preserved ejection fraction, PSVT, irritable bowel syndrome, GERD, hypothyroidism, and bipolar disorder among other medical conditions and who is on home hospice, came in after a fall and due to concern for inability to care for self: Unable to care for self: High risk for recurrent falls and no longer safe for patient to live independently, even with existing caregiver hours - [facility] home hospice recommending 24-hour care, for which patient would require placement. - CM following re: placement needs, [facility] hospice following Accepted at Center Care plan for dc 08/19/24 Fall: Admitted after fall, no acute fracture or intracranial hemorrhage. Patient with generalized weakness at baseline and inability to ambulate independently in a safe manner. - Increase Dilaudid dose frequency to 2mg q1h PRN - Fall precautions while here - Ambulate with walker and with assistance only Chronic Respiratory Failure, on home O2//Pulmonary Fibrosis: Chronic hypoxic respiratory failure due to pulmonary fibrosis. Patient appears to be stable from this standpoint at this time on her home oxygen - Will continue O2 per her home regimen 24 hours a day (5 L) - Every 6 hours as needed DuoNebs - Continue prednisone 10 mg daily, home dose - continue mycophenolate 250 mg twice daily, home dose CHF with preserved ejection fraction - monitor I&O and daily weights - continue Lasix 40 mg daily, consider additional diuresis as needed if appearing fluid overloaded - continue Aldactone 25 mg daily - continue Entresto 1 tab twice daily - continue Toprol XL 50 mg daily CKD Stage 3A; Creatinine at baseline around 1.4 - Renal dosing as appropriate Hypothyroidism - continue Synthroid 137 mcg daily Mood disorder/bipolar disorder - continue amitriptyline 25 mg daily - continue BuSpar 10 mg 3 times daily - continue Lamictal 150 mg daily - continue Topamax 100 mg twice daily GERD - continue Protonix 40 mg twice daily VTE ppx: Heparin FEN/GI: Regular Total Time Total Time Spent Total Time Spent (In Minutes): <30 Discharge Plan Discharge Items Patient Disposition: Hospice - Medical Facility Reason For Visit: FALLS, WEAKNESS Discharge Diagnosis: Malignancy, Pulmonary Fibrosis, Malignancy Activity: Resume your previous activity Activity Comment: as tolerated Non-emergency contact: Primary Care Provider Call non-emergency contact if: your symptoms worsen Follow-up/Referrals: Ted Singh MD [Primary Care Provider] - Diet: Regular Addtl Attending Provider Instructions: You were admitted for comfort care after a fall. You were on hospice when you arrived at our facility and we continued this care while you were admitted. Thank you for allowing us to participate in your care. Pending Studies at Discharge: No Stand-Alone Forms: My [facility] Skilled Items Patient informed of condition?: Yes DNR: Yes Discharge Level of Care: Skilled Communicable Disease: No Discharge Prognosis: Stable Lines: None Urinary Catheter: No Medications and DC Order Prescriptions: Continued amitriptyline 25 mg tablet 25 mg PO HS Qty: 90 3RF furosemide [Lasix] 40 mg tablet 40 mg PO DAILY PRN (Reason: weight gain, edema, SOB) Qty: 30 2RF Rx Instructions: Do not put in bubble packs. albuterol sulfate 90 mcg/actuation HFA aerosol inhaler 2 inh inhalation Q4H PRN (Reason: shortness of breath or wheezing) Qty: 6.7 0RF pantoprazole 40 mg tablet,delayed release (DR/EC) 40 mg PO BID Qty: 60 3RF spironolactone 25 mg tablet 25 mg PO DAILY Qty: 90 3RF prednisone 2.5 mg tablet 7.5 mg PO DAILY Qty: 90 3RF (DME) Portable Oxygen Misc See Rx Instructions .Route Qty: 1 0RF Rx Instructions: POC at 6 L/min via nasal cannula to be used at all times. Length of need 99 years. (DME) Oxygen Home Liters Per Minute See Rx Instructions .ROUTE .MEDSUPPLY Qty: 6 0RF Rx Instructions: Home oxygen concentrator with oxygen to be used at a flow rate of 2 L/min via nasal cannula at all times. mycophenolate mofetil 250 mg capsule 250 mg PO BID Qty: 180 3RF Rx Instructions: TAKES AT 1200 & HS Entresto 49-51 mg tablet 1 tab PO BID Qty: 180 3RF Ozempic 0.25 mg or 0.5 mg (2 mg/3 mL) pen injector subcut Jardiance 10 mg tablet 10 mg PO DAILY Qty: 30 12RF Rx Instructions: Start with May pill pack levothyroxine 137 mcg tablet 137 mcg PO QAM buspirone 10 mg tablet 10 mg PO TID cyanocobalamin (vitamin B-12) 1,000 mcg capsule 1,000 mcg PO QAM gabapentin 100 mg Capsule 100 mg PO BID Rx Instructions: TAKES 100 MG AT 1200 & HS topiramate 100 mg Tablet 100 mg PO BID Rx Instructions: TAKES AT 1200 & HS lamotrigine 150 mg tablet 150 mg PO HS acetaminophen [Tylenol] 325 mg Tablet 650 mg PO QID PRN (Reason: Pain) metoprolol succinate 50 mg Tablet Extended Release 24 Hr 50 mg PO BID Qty: 60 0RF furosemide 40 mg Tablet 40 mg PO QAM Qty: 30 0RF ipratropium-albuterol 0.5 mg-3 mg(2.5 mg base)/3 mL solution for nebulization 3 ml INHALATION Q6H PRN (Reason: sob) hyoscyamine sulfate 0.125 mg tablet 0.125 mg PO Q4H PRN (Reason: terminal secretions) diphenhydramine HCl [Benadryl] 25 mg capsule 25 mg PO Q8H PRN (Reason: Itching) docusate sodium [Colace] 100 mg capsule 100 mg PO BID lorazepam 1 mg tablet 0.5 mg PO Q4H PRN (Reason: restless/insomnia) Rx Instructions: may repeat in 1 hour if not relieved. 2 tabs q15min prn seizures fentanyl 25 mcg/hr patch 72 hour 25 mcg topical Q72H haloperidol lactate 2 mg/mL concentrate 1 mg PO Q4H PRN (Reason: n/v, agitation) [place] Saline Gel [place],Non-Aerosol 2 spray INTRANASAL Q4H PRN (Reason: dry nostril) Discharge Orders: Discharge Order (Routine); Ordered 08/19/24 Ordered By: Hector Nielsen Admission Data Admit Date/Time: 08/07/24 17:08 Attending Provider: Jarad Prado Admit Provider: Galileo Hawk Primary Care Provider: Ted Singh Other Providers: Malcolm Tai; Galileo Hawk; [facility]; [facility] Other Interventions: Discharge Summary Assessment (RN) Last Done: 08/19/24 11:42 Supervising Physician Co-Signing Physician Notes I personally examined the patient and verified all mcclure points of history and exam, discussed case, and agree with decision making with Dr Nielsen for centre care tomorrow vitals noted nad heent nc at mmm breathing unlabored no accessory muscles good effort skin no rashes no pallor or icterus Ambulatory dysfunction w/ fall, failure to thrive in the setting of hospice care for metastatic colon cancer and IPF - for centre care today Chronic hypoxic respiratory failure on baseline O2 with idiopathic pulmonary fibrosis - continue albuterol PRN, prednisone and mycophenolate. Baseline O2 need 5L HFpEF - stable, continue maintenance medications as noted Else see resident documentation as noted. for centre care today Resident Activity Tracking Resident Involvement: Resident Care Provided Care Provided: Adult Hospital Medicine
--- NOTE | 2024-08-19 17:28 | Billing Data ---
Date of Service August 19, 2024 Coding Level of Care Code 00176 IN/OBS DISCH 30 MIN/LESS
== END 2024-08-19 15:29 | disposition hospice, inpatient (51) | DRG 918 ==
LOC: ED 12:12 → 3E 17:08 → SUATTDRO 17:08 → 3E 20:59